=== PATIENT | male | born 1990 | race African-American/Black ===

== ENCOUNTER 2018-03-16 18:49 | Emergency (ER) | payer OTHER ==
--- OUTSIDE RECORDS SUMMARY | 2018-03-16 18:51 | XMS REPORT ---
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
--- OUTSIDE RECORDS SUMMARY | 2018-03-16 18:51 | XMS REPORT ---
:1990 [facility] Team Providers Name Role Phone Bee Swanson Provider Role Unavailable Allergies, Adverse Reactions, Alerts Substance Reaction Event Type N.K.D.A. Info Not Available Non Drug Allergy Problems Problem Type Condition Code Onset Dates Condition Status Assessment Hyperlipidemia, unspecified E78.5 Active hyperlipidemia type Assessment Type 2 diabetes mellitus with E11.65 Active hyperglycemia Assessment [facility] current use of insulin Z79.4 Active Assessment History of pancreatitis Z87.19 Active Problem History of pancreatitis Z87.19 Active Problem [facility] current use of insulin Z79.4 Active Problem Anxiety F41.9 Active Problem Hypertension, unspecified type I10 Active Assessment Hypertension, unspecified type I10 Active Problem Type 2 diabetes mellitus with E11.65 Active hyperglycemia Problem Hyperlipidemia, unspecified E78.5 Active hyperlipidemia type Medications Medication Code Code Instructions Start End Status Dosage System Date Date Coreg [facility] 41918342166 25 mg Orally Active 1 tablet Twice a day Ketoprofen ND 73675263184 75 MG Orally Active 1 capsule Two times a day Aspir-Low ND 83058075830 81 MG Orally Active 1 tablet Once a day Lofibra [facility] 55001962810 54 MG Orally Active 1 tablet Once a day with food Metformin HCl ND 13533167291 1000 MG Orally Active 1 tablet Twice a day with meals Niacin ER ND 08599706018 500 MG Orally Active 1 capsule Once a day with food Mobic [facility] 29448953760 7.5 MG Orally Active 1 tablet Once a day Lantus SoloStar ND 66779537721 100 UNIT/ML Active 60 units Subcutaneous Once daily Atorvastatin ND 65895261784 40 MG Orally Active 1 tablet Calcium Once a day in evening Zyprexa [facility] 20432934158 10 MG Orally Active 1 tablet Once a day Indomethacin ND 76097141648 50 MG Orally Active 1 capsule Twice a day as with food needed or milk Losartan ND 19312592402 50 MG Orally Active 1 tablet Potassium Once a day Creon [facility] 35876350946 6000 UNIT Active not Orally defined Results No Known Results Summary Purpose eClinicalWorks Submission
--- OUTSIDE RECORDS SUMMARY | 2018-03-16 18:51 | XMS REPORT ---
:1990 [facility] Team Providers Name Role Phone Bee Swanson Provider Role Unavailable Allergies, Adverse Reactions, Alerts Substance Reaction Event Type N.K.D.A. Info Not Available Non Drug Allergy Problems Problem Type Condition Code Onset Dates Condition Status Assessment Hyperlipidemia, unspecified E78.5 Active hyperlipidemia type Assessment Type 2 diabetes mellitus with E11.65 Active hyperglycemia Assessment [facility] current use of insulin Z79.4 Active Assessment History of pancreatitis Z87.19 Active Problem History of pancreatitis Z87.19 Active Problem [facility] current use of insulin Z79.4 Active Problem Anxiety F41.9 Active Problem Hypertension, unspecified type I10 Active Assessment Hypertension, unspecified type I10 Active Problem Type 2 diabetes mellitus with E11.65 Active hyperglycemia Problem Hyperlipidemia, unspecified E78.5 Active hyperlipidemia type Medications Medication Code Code Instructions Start End Status Dosage System Date Date Zyprexa [facility] 35001607623 10 MG Orally Active 1 tablet Once a day Ketoprofen [facility] 36370068040 75 MG Orally Active 1 capsule Two times a day Niacin ER ND 34999195190 500 MG Orally Active 1 capsule Once a day with food Atorvastatin ND 36645478104 40 MG Orally Active 1 tablet Calcium Once a day in evening Coreg [facility] 44597043482 25 mg Orally Active 1 tablet Twice a day Mobic [facility] 30974156611 7.5 MG Orally Active 1 tablet Once a day Lofibra [facility] 08052335242 54 MG Orally Active 1 tablet Once a day with food Indomethacin ND 55944601662 50 MG Orally Active 1 capsule Twice a day as with food needed or milk Creon [facility] 33924561098 6000 UNIT Active not Orally defined Metformin HCl ND 29339028064 1000 MG Orally Active 1 tablet Twice a day with meals Lantus SoloStar [facility] 25031201722 100 UNIT/ML Active 60 units Subcutaneous Once daily Losartan ND 98822670254 50 MG Orally Active 1 tablet Potassium Once a day Aspir-Low [facility] 76335866255 81 MG Orally Active 1 tablet Once a day Results No Known Results Summary Purpose eClinicalWorks Submission
[2018-03-16] MEDS ORDERED: LIDOCAINE VISCOUS 2% SOLN 15 ML UDC ONE (19:45)
--- NOTE | 2018-03-16 21:04 | ER ---
Nurse's Notes [facility] Name: Kartik Swartz Jr Age: 27 yrs Sex: Male : 1990 Arrival Date: 03/16/2018 Time: 18:50 Bed 15 Private MD: Diagnosis: Dental caries, unspecified-with pain of Right Back Molar;Removal of Insect from left ear canal Presentation: 03/16 19:03 Presenting complaint: Patient states: "Something flew in my ear. The last time I heard aj1 the wings was at 6:40. I dont know what to do to get it out". Transition of care: patient was not received from another setting of care. Onset of symptoms was March 16, 2018. Risk Assessment: Do you want to hurt yourself or someone else? Patient reports no desire to harm self or others. Initial Sepsis Screen: Does the patient meet any 2 criteria? No. Patient's initial sepsis screen is negative. Does the patient have a suspected source of infection? No. Patient's initial sepsis screen is negative. Care prior to arrival: None. 19:03 Method Of Arrival: Ambulatory aj1 19:03 Acuity: JENNIFER 4 aj1 Triage Assessment: 19:06 General: Appears in no apparent distress. uncomfortable, Behavior is calm, cooperative, aj1 appropriate for age. Pain: Denies pain. Neuro: Level of Consciousness is awake, alert, obeys commands. Cardiovascular: Patient's skin is warm and dry. Respiratory: Airway is patent Respiratory effort is even, unlabored, Respiratory pattern is regular, symmetrical. Historical: - Allergies: 19:06 ROBITUSSIN; aj1 19:06 Tylenol-Codeine #3; aj1 - Home Meds: 19:06 Creon Oral [Active]; Insulin: Lantus Sub-Q [Active]; losartan Oral [Active]; Metformin aj1 Oral [Active]; Zyprexa 10 mg Oral tab 1 tab once daily [Active]; - PMHx: 19:06 Diabetes - NIDDM; Hypertension; Pancreatitis; Schizophrenia; aj1 - Immunization history:: Flu vaccine is not up to date. - Social history:: Smoking status: Patient uses tobacco products, cigars. - Ebola Screening: : Patient denies travel to an Ebola-affected area in the 21 days before illness onset. Screenin:10 Abuse screen: Denies threats or abuse. Denies injuries from another. Nutritional cc3 screening: No deficits noted. Tuberculosis screening: No symptoms or risk factors identified. Fall Risk Ambulatory Aid- None/Bed Rest/Nurse Assist (0 pts). Gait- Normal/Bed Rest/Wheelchair (0 pts) Mental Status- Oriented to own ability (0 pts). Assessment: 19:10 General: see triage assessment. cc3 20:30 Reassessment: Patient appears in no apparent distress at this time. Patient and/or cc3 family updated on plan of care and expected duration. Pain level reassessed. Patient is alert, oriented x 3, equal unlabored respirations, skin warm/dry/pink. 21:20 Reassessment: Patient appears in no apparent distress at this time. Patient and/or cc3 family updated on plan of care and expected duration. Pain level reassessed. Patient is alert, oriented x 3, equal unlabored respirations, skin warm/dry/pink. STEPHANIE Braga discharged the patient home with prescription given. No IV cannula in situ. Patient left ER vitally stable and ambulatory. Vital Signs: 19:06 BP 148 / 89; Pulse 108; Resp 20; Temp 97.3; Pulse Ox 97% on R/A; Weight 175.99 kg (R); aj1 Height 5 ft. 9 in. (175.26 cm) (R); Pain 0/10; 20:50 BP 139 / 78; Pulse 98; Resp 19 S; Pulse Ox 97% on R/A; cc3 19:06 Body Mass Index 57.30 (175.99 kg, 175.26 cm) aj1 ED Course: 18:50 Patient arrived in ED. ds1 19:05 Triage completed. aj1 19:06 Arm band placed on Patient placed in an exam room. aj1 19:07 Althea Munguia is Primary Nurse. cc3 19:10 Melquiades Braga PA is PHCP. cp 19:10 Surya Epperson MD is Attending Physician. cp 19:10 Patient has correct armband on for positive identification. Bed in low position. Call cc3 light in reach. Side rails up X 1. Pulse ox on. NIBP on. 21:01 Ladarius Win DDS is Referral Physician. cp 21:20 No provider procedures requiring assistance completed. Patient did not have IV access cc3 during this emergency room visit. Administered Medications: 19:45 Drug: Lidocaine Gel 2 % 1 application {Note: given by STEPHANIE Braga.} Route: Mucous cc3 Membrane; 20:30 Follow up: Response: No adverse reaction cc3 Outcome: 21:03 Discharge ordered by MD. vega 21:20 Discharged to home ambulatory. cc3 21:20 Condition: stable 21:20 Discharge instructions given to patient, Instructed on discharge instructions, follow up and referral plans. medication usage, Demonstrated understanding of instructions, follow-up care, medications, Prescriptions given X 2. 21:22 Patient left the ED. cc3 Signatures: Kim Walker RN RN aj1 Rosemarie Marquez dsMelquiades Slaughter PA PA cp Cordel, Charlene cc3
--- NOTE | 2018-03-16 21:04 | EDPHYS ---
Physician Documentation [facility] Name: Kartik Swartz Jr Age: 27 yrs Sex: Male : 1990 Arrival Date: 03/16/2018 Time: 18:50 Bed 15 Private MD: ED Physician Surya Epperson HPI: 03/16 19:30 This 27 yrs old Black Male presents to ER via Ambulatory with complaints of Bug In Ear. cp 19:30 The patient presents with a foreign body sensation, presumably from an insect. cp 19:30 The complaints affect the left ear. Onset: The symptoms/episode began/occurred today. cp The patient presents with broken tooth/teeth, pain. The problem is located in the upper right third molar (#1). Onset: The symptoms/episode began/occurred gradually. Duration: The symptoms are continuous, and are steadily getting worse. Modifying factors: the symptoms are aggravated by chewing. Associated signs and symptoms: Pertinent negatives: fever, sinus trouble, facial swelling. Historical: - Allergies: 19:06 ROBITUSSIN; aj1 19:06 Tylenol-Codeine #3; aj1 - Home Meds: 19:06 Creon Oral [Active]; Insulin: Lantus Sub-Q [Active]; losartan Oral [Active]; Metformin aj1 Oral [Active]; Zyprexa 10 mg Oral tab 1 tab once daily [Active]; - PMHx: 19:06 Diabetes - NIDDM; Hypertension; Pancreatitis; Schizophrenia; aj1 - Immunization history:: Flu vaccine is not up to date. - Social history:: Smoking status: Patient uses tobacco products, cigars. - Ebola Screening: : Patient denies travel to an Ebola-affected area in the 21 days before illness onset. ROS: 19:40 Constitutional: Negative for body aches, chills, fever, poor PO intake. cp 19:40 Eyes: Negative for injury, pain, redness, and discharge. cp 19:40 ENT: Positive for dental pain, foreign body sensation, Negative for drainage from ear(s), sore throat, difficulty swallowing, difficulty handling secretions. 19:40 Respiratory: Negative for cough, shortness of breath, wheezing. 19:40 Abdomen/GI: Negative for abdominal pain, nausea, vomiting, and diarrhea. 19:40 Skin: Negative for cellulitis, rash. 19:40 Neuro: Negative for altered mental status, headache, weakness. 19:40 All other systems are negative. Exam: 19:45 Constitutional: The patient appears in no acute distress, alert, awake, non-toxic, well cp developed, well nourished. 19:45 Head/Face: Normocephalic, atraumatic. cp 19:45 Eyes: Periorbital structures: appear normal, Conjunctiva: normal, no exudate, no injection, Sclera: no appreciated abnormality, Lids and lashes: appear normal, bilaterally. 19:45 ENT: External ear(s): are unremarkable, Ear canal(s): foreign body, an insect, in the left external ear canal, Examination of the other ear shows no obvious abnormality, Nose: is normal, Mouth: Lips: moist, Oral mucosa: moist, abscess, is not appreciated, Posterior pharynx: Airway: no evidence of obstruction, patent, Tonsils: are normal in appearance, Dental exam: abscess, is not appreciated, dental caries, that is moderate, diffusely, fractured teeth are noted, specifically the upper right third molar (#1), gum swelling, that is mild, specifically in the upper right third molar (#1), pain, that is mild, specifically in the upper right third molar (#1), Voice: is normal. 19:45 Neck: ROM/movement: is normal, is supple, without pain, no range of motions limitations, no nuchal rigidity, Lymph nodes: no appreciated lymphadenopathy. 19:45 Chest/axilla: Inspection: normal. 19:45 Cardiovascular: Rate: tachycardic, Rhythm: regular. 19:45 Respiratory: the patient does not display signs of respiratory distress, Respirations: normal, no use of accessory muscles, no retractions, no splinting, no tachypnea, labored breathing, is not present. 19:45 Abdomen/GI: Exam negative for discomfort, distension, guarding, Inspection: abdomen appears normal. 19:45 Skin: cellulitis, is not appreciated, no rash present. Vital Signs: 19:06 BP 148 / 89; Pulse 108; Resp 20; Temp 97.3; Pulse Ox 97% on R/A; Weight 175.99 kg (R); aj1 Height 5 ft. 9 in. (175.26 cm) (R); Pain 0/10; 20:50 BP 139 / 78; Pulse 98; Resp 19 S; Pulse Ox 97% on R/A; cc3 19:06 Body Mass Index 57.30 (175.99 kg, 175.26 cm) aj1 Procedures: 20:58 Foreign Body Removal: an insect, from the left ear canal, by using alligator clamps, cp The patient tolerated the removal well. MDM: 19:10 Patient medically screened. cp 20:00 Differential diagnosis: otitis media, otitis externa, ruptured TM, foreign body, acute cp otalgia, cerumen impaction, dental caries, dental abscess. 21:02 Data reviewed: vital signs, nurses notes, and as a result, I will discharge patient. cp 21:02 Counseling: I had a detailed discussion with the patient and/or guardian regarding: the cp historical points, exam findings, and any diagnostic results supporting the discharge/admit diagnosis, lab results, the need for outpatient follow up, a dentist, to return to the emergency department if symptoms worsen or persist or if there are any questions or concerns that arise at home. 21:02 Response to treatment: the patient's symptoms have markedly improved after treatment, cp and as a result, I will discharge patient. Administered Medications: 19:45 Drug: Lidocaine Gel 2 % 1 application {Note: given by STEPHANIE Braga.} Route: Mucous cc3 Membrane; 20:30 Follow up: Response: No adverse reaction cc3 Disposition: 03/17 01:00 Co-signature as Attending Physician, Surya Epperson MD. rn Disposition: 03/16/18 21:03 Discharged to Home. Impression: Dental caries, unspecified - with pain of Right Back Molar, Removal of Insect from left ear canal. - Condition is Stable. - Discharge Instructions: Dental Caries, Adult, Dental Pain, Ear Foreign Body. - Prescriptions for Peridex 0.12 % Mucous Membrane mouthwash - place 15 milliliter by MUCOUS MEMBRANE route 2 times per day after brushing teeth, swish in mouth for 30 seconds then spit out; 1 bottle. Amoxicillin 875 mg Oral Tablet - take 1 tablet by ORAL route every 12 hours for 10 days; 20 tablet. - Medication Reconciliation Form, Thank You Letter, Antibiotic Education, Prescription Opioid Use form. - Follow up: Ladarius Win DDS; When: 2 - 3 days; Reason: dental pain. - Problem is new. - Symptoms have improved. Signatures: Kim Walker, RN RN aj1 Surya Epperson MD MD rn Page, Corey, PA PA cp Althea Munguia cc3 Corrections: (The following items were deleted from the chart) 03/16 21:22 21:03 03/16/2018 21:03 Discharged to Home. Impression: Dental caries, unspecified - cc3 with pain of Right Back Molar; Removal of Insect from left ear canal. Condition is Stable. Forms are Medication Reconciliation Form, Thank You Letter, Antibiotic Education, Prescription Opioid Use. Follow up: Ladarius Win; When: 2 - 3 days; Reason: dental pain. Problem is new. Symptoms have improved. cp
[2018-03-16 21:57] VITALS: BP 148/89; TEMP 97.3; O2SAT 97
== END 2018-03-16 21:22 | disposition home or self-care (01) ==
LOC: ER 18:49
PROC: 09C4XZZ Extirpation of Matter from Left External Auditory Canal, External Approach (ICD-10-PCS; principal; 2018-03-16)
DX: T16.2XXA Foreign body in left ear, initial encounter (principal); K02.9 Dental caries, unspecified; I10 Essential (primary) hypertension; E11.9 Type 2 diabetes mellitus without complications; Z88.8 Allergy status to other drugs, medicaments and biological substances; Z79.4 Long term (current) use of insulin; Z72.0 Tobacco use; Z88.5 Allergy status to narcotic agent
CPT/HCPCS: 99283

== ENCOUNTER 2018-04-27 16:09 | Emergency (ER) | payer SELFPAY ==
--- OUTSIDE RECORDS SUMMARY | 2018-04-27 16:12 | XMS REPORT ---
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
--- OUTSIDE RECORDS SUMMARY | 2018-04-27 16:12 | XMS REPORT ---
:1990 [facility] [address] [place] [address] [address] [place] [address] Care Team Providers Name Role Phone Unavailable Unavailable Unavailable Problems This patient has no known problems. Allergies, Adverse Reactions, Alerts This patient has no known allergies or adverse reactions. Medications This patient has no known medications.
--- OUTSIDE RECORDS SUMMARY | 2018-04-27 16:12 | XMS REPORT ---
:1990 [facility] Team Providers Name Role Phone Bee Swanson Provider Role Unavailable Allergies, Adverse Reactions, Alerts Substance Reaction Event Type N.K.D.A. 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 86995569977 25 mg Orally Active 1 tablet Twice a day Ketoprofen ND 66033025238 75 MG Orally Active 1 capsule Two times a day Aspir-Low ND 18270355186 81 MG Orally Active 1 tablet Once a day Lofibra [facility] 00167355596 54 MG Orally Active 1 tablet Once a day with food Metformin HCl ND 74849641020 1000 MG Orally Active 1 tablet Twice a day with meals Niacin ER ND 24406114975 500 MG Orally Active 1 capsule Once a day with food Mobic [facility] 35154831939 7.5 MG Orally Active 1 tablet Once a day Lantus SoloStar ND 12620074319 100 UNIT/ML Active 60 units Subcutaneous Once daily Atorvastatin ND 91198844701 40 MG Orally Active 1 tablet Calcium Once a day in evening Zyprexa [facility] 49265704954 10 MG Orally Active 1 tablet Once a day Indomethacin ND 60857820404 50 MG Orally Active 1 capsule Twice a day as with food needed or milk Losartan ND 30131681700 50 MG Orally Active 1 tablet Potassium Once a day Creon [facility] 27825025964 6000 UNIT Active not Orally defined Results No Known Results Summary Purpose eClinicalWorks Submission
--- OUTSIDE RECORDS SUMMARY | 2018-04-27 16:12 | XMS REPORT ---
:1990 [facility] Team Providers Name Role Phone Bee Swanson Provider Role Unavailable Allergies, Adverse Reactions, Alerts Substance Reaction Event Type N.K.D.A. Info Not Available Non Drug Allergy Problems Problem Type Condition Code Onset Dates Condition Status Assessment Hyperlipidemia, unspecified E78.5 Active hyperlipidemia type Assessment Type 2 diabetes mellitus with E11.65 Active hyperglycemia Assessment [facility] current use of insulin Z79.4 Active Assessment History of pancreatitis Z87.19 Active Problem History of pancreatitis Z87.19 Active Problem [facility] current use of insulin Z79.4 Active Problem Anxiety F41.9 Active Problem Hypertension, unspecified type I10 Active Assessment Hypertension, unspecified type I10 Active Problem Type 2 diabetes mellitus with E11.65 Active hyperglycemia Problem Hyperlipidemia, unspecified E78.5 Active hyperlipidemia type Medications Medication Code Code Instructions Start End Status Dosage System Date Date Zyprexa [facility] 22882007453 10 MG Orally Active 1 tablet Once a day Ketoprofen [facility] 18702579374 75 MG Orally Active 1 capsule Two times a day Niacin ER ND 74583916174 500 MG Orally Active 1 capsule Once a day with food Atorvastatin ND 37104055655 40 MG Orally Active 1 tablet Calcium Once a day in evening Coreg [facility] 30849432010 25 mg Orally Active 1 tablet Twice a day Mobic [facility] 86434829779 7.5 MG Orally Active 1 tablet Once a day Lofibra [facility] 19113996369 54 MG Orally Active 1 tablet Once a day with food Indomethacin ND 55093751953 50 MG Orally Active 1 capsule Twice a day as with food needed or milk Creon [facility] 55656521082 6000 UNIT Active not Orally defined Metformin HCl ND 87086456022 1000 MG Orally Active 1 tablet Twice a day with meals Lantus SoloStar [facility] 92611808479 100 UNIT/ML Active 60 units Subcutaneous Once daily Losartan ND 98782872290 50 MG Orally Active 1 tablet Potassium Once a day Aspir-Low [facility] 00625347087 81 MG Orally Active 1 tablet Once a day Results No Known Results Summary Purpose eClinicalWorks Submission
--- NOTE | 2018-04-27 17:10 | ER ---
Nurse's Notes [facility] Name: Kartik Swartz Jr Age: 27 yrs Sex: Male : 1990 Arrival Date: 04/27/2018 Time: 16:14 Bed 24 Private MD: Bee Swanson Diagnosis: Presentation: 04/27 16:36 Presenting complaint: Patient states: I think someone put formaldehyde on my cigarette ch or something, I feel drugged and dizzy. For at least today, maybe even yesterday. I dont know. Transition of care: patient was not received from another setting of care. Onset of symptoms was April 27, 2018. Risk Assessment: Do you want to hurt yourself or someone else? Patient reports no desire to harm self or others. Initial Sepsis Screen: Does the patient meet any 2 criteria? No. Patient's initial sepsis screen is negative. Does the patient have a suspected source of infection? No. Patient's initial sepsis screen is negative. Care prior to arrival: None. 16:36 Method Of Arrival: Ambulatory 16:36 Acuity: JENNIFER 3 Historical: - Allergies: 16:37 ROBITUSSIN; 16:37 Tylenol-Codeine #3; - Home Meds: 16:37 Insulin: Lantus Sub-Q [Active]; - PMHx: 16:37 Diabetes - NIDDM; Hypertension; Pancreatitis; Schizophrenia; - PSHx: 16:37 None; - Immunization history:: Adult Immunizations up to date. - Social history:: Smoking status: Patient uses tobacco products, unknown amount. - Ebola Screening: : Patient negative for fever greater than or equal to 101.5 degrees Fahrenheit, and additional compatible Ebola Virus Disease symptoms Patient denies exposure to infectious person Patient denies travel to an Ebola-affected area in the 21 days before illness onset No symptoms or risks identified at this time. Vital Signs: 16:37 BP 155 / 109; Pulse 111; Resp 18; Temp 98.4; Pulse Ox 98% on R/A; Weight 95.25 kg; ch Height 5 ft. 9 in. (175.26 cm); Pain 0/10; 16:37 Body Mass Index 31.01 (95.25 kg, 175.26 cm) ED Course: 16:14 Patient arrived in ED. sb2 16:15 Bee Swanson MD is Private Physician. sb2 16:36 Triage completed. 16:37 Arm band placed on left wrist. Patient placed in an exam room, on a stretcher. 16:48 Cj Morin PA is PHCP. [facility] 16:48 Vasile Clay MD is Attending Physician. [facility] 16:50 Jessica Paulino LVN is Primary Nurse. ed1 Administered Medications: No medications were administered Point of Care Testing: Blood Glucose: 16:40 Blood Glucose: 143 mg/dL; Ranges: Outcome: 17:09 Eloped from patient exam room, before seeing physician Time discovered patient gone: ed1 April 27, 2018 at 17:09 17:09 unknown 17:09 Discharge instructions given to None given. Pt eloped from exam room before being seen by nurse or provider 17:10 Patient left the ED. ed1 17:20 Patient left the ED. hb Signatures: Ileana George, RN RN Cj Morin PA [facility] Jessica Paulino LVN SOFTWARE PERFORMANCE ENGINEER ed1 Janis Mason, RN RN Yenifer Aguilar sb2
--- NOTE | 2018-04-27 17:10 | EDPHYS ---
Physician Documentation [facility] Name: Kartik Swartz Jr Age: 27 yrs Sex: Male : 1990 Arrival Date: 04/27/2018 Time: 16:14 Bed 24 Private MD: Bee Swanson ED Physician Vasile Clay Historical: - Allergies: 04/27 16:37 ROBITUSSIN; 16:37 Tylenol-Codeine #3; - Home Meds: 16:37 Insulin: Lantus Sub-Q [Active]; ch - PMHx: 16:37 Diabetes - NIDDM; Hypertension; Pancreatitis; Schizophrenia; ch - PSHx: 16:37 None; - Immunization history:: Adult Immunizations up to date. - Social history:: Smoking status: Patient uses tobacco products, unknown amount. - Ebola Screening: : Patient negative for fever greater than or equal to 101.5 degrees Fahrenheit, and additional compatible Ebola Virus Disease symptoms Patient denies exposure to infectious person Patient denies travel to an Ebola-affected area in the 21 days before illness onset No symptoms or risks identified at this time. Vital Signs: 16:37 BP 155 / 109; Pulse 111; Resp 18; Temp 98.4; Pulse Ox 98% on R/A; Weight 95.25 kg; ch Height 5 ft. 9 in. (175.26 cm); Pain 0/10; 16:37 Body Mass Index 31.01 (95.25 kg, 175.26 cm) ch MDM: 04/27 16:42 Order name: Glucose, Ancillary Testing; Complete Time: 16:54 EDMS Administered Medications: No medications were administered Point of Care Testing: Blood Glucose: 16:40 Blood Glucose: 143 mg/dL; Ranges: Critical Glucose Levels:Adult <50 mg/dl or >400 mg/dl <40 mg/dl or >180 mg/dl Disposition: 04/27/18 17:10 Patient left the facility before being seen by provider. - Patient left due to unknown. Signatures: Dispatcher [employer] EDMS Ileana George RN RN Cj Longoria PA PA jmm Riggs, Erika, SHOPPING CENTRE MANAGER SHOPPING CENTRE MANAGER ed1 Janis Mason RN RN Corrections: (The following items were deleted from the chart) 17:05 16:55 Patient medically screened. sherry powell 17:20 17:10 04/27/2018 17:10 Patient left the facility before being seen by provider. Reason hb stated they are leaving due to unknown. ed1
[2018-04-27 17:15] VITALS: BP 155/109; TEMP 98.4; O2SAT 98
== END 2018-04-27 17:20 | disposition left against medical advice (07) ==
LOC: ER 16:09
DX: Z53.21 Procedure and treatment not carried out due to patient leaving prior to being seen by health care provider (principal)
CPT/HCPCS: 82962; 99282

== ENCOUNTER 2018-05-25 20:54 | Emergency (ER) | payer OTHER ==
--- OUTSIDE RECORDS SUMMARY | 2018-05-25 20:56 | XMS REPORT ---
:1990 [facility] Address [address] [place] [address] Care Team Providers Name Role Phone Unavailable Unavailable Unavailable Problems This patient has no known problems. Allergies, Adverse Reactions, Alerts This patient has no known allergies or adverse reactions. Medications This patient has no known medications.
--- OUTSIDE RECORDS SUMMARY | 2018-05-25 20:56 | XMS REPORT ---
:1990 [facility] Team Providers Name Role Phone Bee Swanson Provider Role Unavailable Allergies, Adverse Reactions, Alerts Substance Reaction Event Type N.K.D.A. Info Not Available Non Drug Allergy Problems Problem Type Condition Code Onset Dates Condition Status Assessment Hyperlipidemia, unspecified E78.5 Active hyperlipidemia type Assessment Type 2 diabetes mellitus with E11.65 Active hyperglycemia Assessment half-way current use of insulin Z79.4 Active Assessment History of pancreatitis Z87.19 Active Problem History of pancreatitis Z87.19 Active Problem half-way current use of insulin Z79.4 Active Problem Anxiety F41.9 Active Problem Hypertension, unspecified type I10 Active Assessment Hypertension, unspecified type I10 Active Problem Type 2 diabetes mellitus with E11.65 Active hyperglycemia Problem Hyperlipidemia, unspecified E78.5 Active hyperlipidemia type Medications Medication Code Code Instructions Start End Status Dosage System Date Date Zyprexa [facility] 36120550056 10 MG Orally Active 1 tablet Once a day Ketoprofen [facility] 68623630749 75 MG Orally Active 1 capsule Two times a day Niacin ER ND 61236302791 500 MG Orally Active 1 capsule Once a day with food Atorvastatin ND 29125363717 40 MG Orally Active 1 tablet Calcium Once a day in evening Coreg [facility] 37312604079 25 mg Orally Active 1 tablet Twice a day Mobic [facility] 77778820287 7.5 MG Orally Active 1 tablet Once a day Lofibra [facility] 44115942687 54 MG Orally Active 1 tablet Once a day with food Indomethacin ND 43091791247 50 MG Orally Active 1 capsule Twice a day as with food needed or milk Creon [facility] 61682813567 6000 UNIT Active not Orally defined Metformin HCl ND 47814020998 1000 MG Orally Active 1 tablet Twice a day with meals Lantus SoloStar [facility] 28706003750 100 UNIT/ML Active 60 units Subcutaneous Once daily Losartan ND 02521915575 50 MG Orally Active 1 tablet Potassium Once a day Aspir-Low [facility] 95921711734 81 MG Orally Active 1 tablet Once a day Results No Known Results Summary Purpose eClinicalWorks Submission
--- OUTSIDE RECORDS SUMMARY | 2018-05-25 20:57 | XMS REPORT ---
:1990 [facility] Team Providers Name Role [...] End Status Dosage System Date Date Coreg [facility] 07825084458 25 mg Orally Active 1 tablet Twice a day Ketoprofen ND 92497150184 75 MG Orally Active 1 capsule Two times a day Aspir-Low ND 11546248446 81 MG Orally Active 1 tablet Once a day Lofibra [facility] 79625125221 54 MG Orally Active 1 tablet Once a day with food Metformin HCl ND 60801384891 1000 MG Orally Active 1 tablet Twice a day with meals Niacin ER ND 27553431939 500 MG Orally Active 1 capsule Once a day with food Mobic [facility] 66291119151 7.5 MG Orally Active 1 tablet Once a day Lantus SoloStar ND 59325127511 100 UNIT/ML Active 60 units Subcutaneous Once daily Atorvastatin ND 37076765394 40 MG Orally Active 1 tablet Calcium Once a day in evening Zyprexa [facility] 92301981436 10 MG Orally Active 1 tablet Once a day Indomethacin ND 62981283431 50 MG Orally Active 1 capsule Twice a day as with food needed or milk Losartan ND 09362282240 50 MG Orally Active 1 tablet Potassium Once a day Creon [facility] 66607681172 6000 UNIT Active not Orally defined Results No Known Results Summary Purpose eClinicalWorks Submission
--- OUTSIDE RECORDS SUMMARY | 2018-05-25 20:57 | XMS REPORT ---
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
--- NOTE | 2018-05-25 23:00 | ER ---
Nurse's Notes [facility] Name: Kartik Swartz Jr Age: 27 yrs Sex: Male : 1990 Arrival Date: 05/25/2018 Time: 21:02 Bed 23 Private MD: Diagnosis: Dental caries-pain Presentation: 05/25 21:19 Presenting complaint: Patient states: Left jaw and ear pain for the past month. Patient aj1 states that he was seen here and given antibiotics but he didn't get a chance to follow up with the dentist. Denies fever. Transition of care: patient was not received from another setting of care. Onset of symptoms was 2018. Risk Assessment: Do you want to hurt yourself or someone else? Patient reports no desire to harm self or others. Initial Sepsis Screen: Does the patient meet any 2 criteria? No. Patient's initial sepsis screen is negative. Does the patient have a suspected source of infection? No. Patient's initial sepsis screen is negative. Care prior to arrival: None. 21:19 Method Of Arrival: Ambulatory aj 21:19 Acuity: JENNIFER 4 aj1 Triage Assessment: 21:23 General: Appears in no apparent distress. comfortable, Behavior is calm, cooperative, aj1 appropriate for age. Pain: Complains of pain in left ear and left jaw Pain currently is 7 out of 10 on a pain scale. EENT: Reports jaw pain and ear pain. Neuro: Level of Consciousness is awake, alert, obeys commands. Cardiovascular: Patient's skin is warm and dry. Respiratory: Airway is patent Respiratory effort is even, unlabored, Respiratory pattern is regular, symmetrical. Historical: - Allergies: 21:23 ROBITUSSIN; aj1 21:23 Tylenol-Codeine #3; aj1 - Home Meds: 21:23 Creon Oral [Active]; Insulin: Lantus Sub-Q [Active]; losartan Oral [Active]; Metformin aj1 Oral [Active]; Zyprexa 10 mg Oral tab 1 tab once daily [Active]; - PMHx: 21:23 Diabetes - NIDDM; Hypertension; Pancreatitis; Schizophrenia; aj1 - Immunization history:: Flu vaccine is not up to date. - Social history:: Smoking status: Patient uses tobacco products, smokes one-half pack cigarettes per day. - Ebola Screening: : Patient denies travel to an Ebola-affected area in the 21 days before illness onset. - Family history:: not pertinent. Screenin:04 Abuse screen: Denies threats or abuse. Nutritional screening: No deficits noted. jd3 Tuberculosis screening: No symptoms or risk factors identified. Fall Risk Ambulatory Aid- None/Bed Rest/Nurse Assist (0 pts). Gait- Normal/Bed Rest/Wheelchair (0 pts) Mental Status- Oriented to own ability (0 pts). Total Sneed Fall Scale indicates No Risk (0-24 pts). Assessment: 22:02 General: Appears in no apparent distress. uncomfortable, Behavior is calm, cooperative, jd3 appropriate for age. Pain: Complains of pain in face and left jaw and left ear Quality of pain is described as sharp. Neuro: Level of Consciousness is awake, alert, obeys commands, Oriented to person, place, time, situation. Cardiovascular: Capillary refill < 3 seconds Patient's skin is warm and dry. Respiratory: Airway is patent Respiratory effort is even, unlabored, Respiratory pattern is regular, symmetrical. GI: No signs and/or symptoms were reported involving the gastrointestinal system. : No signs and/or symptoms were reported regarding the genitourinary system. EENT: Ear canal w/ drainage noted from left ear Oral mucosa is moist. Poor dentition noted. Dental caries noted in left jaw. Derm: Skin is intact, Skin is dry, Skin is normal, Skin temperature is warm. Musculoskeletal: Circulation, motion, and sensation intact. Range of motion: intact in all extremities. 23:09 Reassessment: Patient appears in no apparent distress at this time. Patient and/or jd3 family updated on plan of care and expected duration. Pain level reassessed. Patient is alert, oriented x 3, equal unlabored respirations, skin warm/dry/pink. Vital Signs: 21:23 BP 149 / 98; Pulse 91; Resp 18; Temp 97.4(TE); Pulse Ox 96% on R/A; Weight 122.47 kg; aj1 Height 5 ft. 9 in. (175.26 cm); Pain 7/10; 23:09 Pulse 89; Resp 17 S; Pulse Ox 97% on R/A; jd3 21:23 Body Mass Index 39.87 (122.47 kg, 175.26 cm) aj1 ED Course: 21:02 Patient arrived in ED. es 21:22 Triage completed. aj1 21:23 Arm band placed on Patient placed in waiting room, Patient notified of wait time. aj1 21:59 Daniel Mohamud, RN is Primary Nurse. jd3 22:04 Patient has correct armband on for positive identification. Bed in low position. Call jd3 light in reach. Side rails up X 1. 22:06 Melquiades Snow MD is Attending Physician. [facility] 22:59 Ladarius Win DDS is Referral Physician. [facility] 23:10 No provider procedures requiring assistance completed. Patient did not have IV access jd3 during this emergency room visit. Administered Medications: 23:06 Drug: Augmentin 875 mg Route: PO; jd3 23:06 Follow up: Response: Medication administered at discharge. jd3 Outcome: :59 Discharge ordered by . [facility] 23:10 Discharged to home ambulatory. jd3 23:10 Condition: stable 23:10 Discharge instructions given to patient, Instructed on discharge instructions, follow up and referral plans. medication usage, Demonstrated understanding of instructions, follow-up care, medications, Prescriptions given X 2. 23:11 Patient left the ED. jd3 Signatures: Kim Walker, RN RN aj1 Melquiades Snow MD MD cha Salyer, Edna es Davies, Jonathon, RN RN jd3
--- NOTE | 2018-05-25 23:01 | EDPHYS ---
Physician Documentation [facility] Name: Kartik Swartz Jr Age: 27 yrs Sex: Male : 1990 Arrival Date: 05/25/2018 Time: 21:02 Bed 23 Private MD: ED Physician Melquiades Snow HPI: 05/25 22:56 This 27 yrs old Black Male presents to ER via Ambulatory with complaints of Ear Pain. kendrick 22:56 This 27 yrs old Black Male presents to ER via Ambulatory with complaints of Ear Pain kendrick and tooth pain. 22:56 The patient presents with pain. The complaints affect the left cheek and left jaw. kendrick Onset: The symptoms/episode began/occurred 2 day(s) ago. Modifying factors: The symptoms are alleviated by nothing. Associated signs and symptoms: The patient has no apparent associated signs or symptoms. Severity of symptoms: At their worst the symptoms were mild moderate in the emergency department the symptoms are unchanged. The patient has not experienced similar symptoms in the past. Historical: - Allergies: 21:23 ROBITUSSIN; aj1 21:23 Tylenol-Codeine #3; aj1 - Home Meds: 21:23 Creon Oral [Active]; Insulin: Lantus Sub-Q [Active]; losartan Oral [Active]; Metformin aj1 Oral [Active]; Zyprexa 10 mg Oral tab 1 tab once daily [Active]; - PMHx: 21:23 Diabetes - NIDDM; Hypertension; Pancreatitis; Schizophrenia; aj1 - Immunization history:: Flu vaccine is not up to date. - Social history:: Smoking status: Patient uses tobacco products, smokes one-half pack cigarettes per day. - Ebola Screening: : Patient denies travel to an Ebola-affected area in the 21 days before illness onset. - Family history:: not pertinent. ROS: 22:56 Constitutional: Negative for fever, chills, and weight loss, Eyes: Negative for injury, kendrick pain, redness, and discharge, Neck: Negative for injury, pain, and swelling, Cardiovascular: Negative for chest pain, palpitations, and edema, Respiratory: Negative for shortness of breath, cough, wheezing, and pleuritic chest pain, Abdomen/GI: Negative for abdominal pain, nausea, vomiting, diarrhea, and constipation, Back: Negative for injury and pain, : Negative for injury, bleeding, discharge, and swelling, MS/Extremity: Negative for injury and deformity, Skin: Negative for injury, rash, and discoloration, Neuro: Negative for headache, weakness, numbness, tingling, and seizure, Psych: Negative for depression, anxiety, suicide ideation, homicidal ideation, and hallucinations, Allergy/Immunology: Negative for hives, rash, and allergies, Endocrine: Negative for neck swelling, polydipsia, polyuria, polyphagia, and marked weight changes, Hematologic/Lymphatic: Negative for swollen nodes, abnormal bleeding, and unusual bruising. 22:56 ENT: Positive for ear pain, Teeth pain Exam: 22:56 Constitutional: This is a well developed, well nourished patient who is awake, alert, kendrick and in no acute distress. Head/Face: Normocephalic, atraumatic. Eyes: Pupils equal round and reactive to light, extra-ocular motions intact. Lids and lashes normal. Conjunctiva and sclera are non-icteric and not injected. Cornea within normal limits. Periorbital areas with no swelling, redness, or edema. Neck: Trachea midline, no thyromegaly or masses palpated, and no cervical lymphadenopathy. Supple, full range of motion without nuchal rigidity, or vertebral point tenderness. No Meningismus. Chest/axilla: Normal chest wall appearance and motion. Nontender with no deformity. No lesions are appreciated. Cardiovascular: Regular rate and rhythm with a normal S1 and S2. No gallops, murmurs, or rubs. Normal PMI, no JVD. No pulse deficits. Respiratory: Lungs have equal breath sounds bilaterally, clear to auscultation and percussion. No rales, rhonchi or wheezes noted. No increased work of breathing, no retractions or nasal flaring. Abdomen/GI: Soft, non-tender, with normal bowel sounds. No distension or tympany. No guarding or rebound. No evidence of tenderness throughout. Back: No spinal tenderness. No costovertebral tenderness. Full range of motion. Male : Normal genitalia with no discharge or lesions. Skin: Warm, dry with normal turgor. Normal color with no rashes, no lesions, and no evidence of cellulitis. MS/ Extremity: Pulses equal, no cyanosis. Neurovascular intact. Full, normal range of motion. Neuro: Awake and alert, GCS 15, oriented to person, place, time, and situation. Cranial nerves II-XII grossly intact. Motor strength 5/5 in all extremities. Sensory grossly intact. Cerebellar exam normal. Normal gait. Psych: Awake, alert, with orientation to person, place and time. Behavior, mood, and affect are within normal limits. 22:56 ENT: TM's: are normal, no acute changes, Nose: is normal, no acute changes, Mouth: is normal, no acute changes, Dental exam: dental caries, that is mild, fractured teeth are noted, specifically the upper left first molar (#14). Vital Signs: 21:23 BP 149 / 98; Pulse 91; Resp 18; Temp 97.4(TE); Pulse Ox 96% on R/A; Weight 122.47 kg; aj1 Height 5 ft. 9 in. (175.26 cm); Pain 7/10; 23:09 Pulse 89; Resp 17 S; Pulse Ox 97% on R/A; jd3 21:23 Body Mass Index 39.87 (122.47 kg, 175.26 cm) aj1 MDM: 22:06 Patient medically screened. [facility] 22:56 Data reviewed: vital signs, nurses notes. [facility] Administered Medications: 23:06 Drug: Augmentin 875 mg Route: PO; jd3 23:06 Follow up: Response: Medication administered at discharge. jd3 Disposition: 05/25/18 22:59 Discharged to Home. Impression: Dental caries - pain. - Condition is Stable. - Discharge Instructions: Dental Pain, Dental Pain, [id number]. - Prescriptions for Augmentin 875- 125 mg Oral Tablet - take 1 tablet by ORAL route every 12 hours for 10 days; 20 tablet. Tramadol 50 mg Oral Tablet - take 1 tablet by ORAL route every 8 hours as needed; 20 tablet. - Medication Reconciliation Form, Thank You Letter, Antibiotic Education, Prescription Opioid Use form. - Follow up: Private Physician; When: 2 - 3 days; Reason: Recheck today's complaints, Continuance of care, Re-evaluation by your physician. Follow up: Ladarius Win DDS; When: 2 - 3 days; Reason: Recheck today's complaints, Continuance of care, Re-evaluation by your physician. - Problem is new. - Symptoms have improved. Signatures: Kim Walker RN RN aj1 Melquiades Snow MD MD cha Davies, Jonathon, RN RN jd3 Corrections: (The following items were deleted from the chart) 23:11 22:59 05/25/2018 22:59 Discharged to Home. Impression: Dental caries - pain. Condition jd3 is Stable. Forms are Medication Reconciliation Form, Thank You Letter, Antibiotic Education, Prescription Opioid Use. Follow up: Private Physician; When: 2 - 3 days; Reason: Recheck today's complaints, Continuance of care, Re-evaluation by your physician. Follow up: Ladarius Win; When: 2 - 3 days; Reason: Recheck today's complaints, Continuance of care, Re-evaluation by your physician. Problem is new. Symptoms have improved. kendrick
[2018-05-25] MEDS ORDERED: AMOX/K CLAV 875 MG TAB ONE (23:11)
[2018-05-26 00:53] VITALS: O2SAT 97
== END 2018-05-25 23:11 | disposition home or self-care (01) ==
LOC: ER 20:54
DX: K02.9 Dental caries, unspecified (principal); E11.9 Type 2 diabetes mellitus without complications; I10 Essential (primary) hypertension; F20.9 Schizophrenia, unspecified; F17.210 Nicotine dependence, cigarettes, uncomplicated; Z88.5 Allergy status to narcotic agent; Z88.8 Allergy status to other drugs, medicaments and biological substances; Z79.84 Long term (current) use of oral hypoglycemic drugs
CPT/HCPCS: 99283

== ENCOUNTER 2018-05-30 10:53 | Emergency (ER) | payer SELFPAY ==
[2011-11-25 06:50] VITALS: BP 112/52
--- OUTSIDE RECORDS SUMMARY | 2018-05-30 10:59 | XMS REPORT ---
:1990 [facility] Address [address] [place] [address] Dr. Duran [address] [place] [id number] Care Team Providers Name Role Phone Unavailable Unavailable Unavailable Problems This patient has no known problems. Allergies, Adverse Reactions, Alerts This patient has no known allergies or adverse reactions. Medications This patient has no known medications.
--- OUTSIDE RECORDS SUMMARY | 2018-05-30 10:59 | XMS REPORT ---
:1990 [facility] Care Team Providers Name Role Phone Bee Swanson Provider Role Unavailable Allergies, Adverse Reactions, Alerts Substance Reaction Event Type N.K.D.A. Info Not Available Non Drug Allergy Problems Problem Type Condition Code Onset Dates Condition Status Assessment Hyperlipidemia, unspecified E78.5 Active hyperlipidemia type Assessment Type 2 diabetes mellitus with E11.65 Active hyperglycemia Assessment alf current use of insulin Z79.4 Active Assessment History of pancreatitis Z87.19 Active Problem History of pancreatitis Z87.19 Active Problem alf current use of insulin Z79.4 Active Problem Anxiety F41.9 Active Problem Hypertension, unspecified type I10 Active Assessment Hypertension, unspecified type I10 Active Problem Type 2 diabetes mellitus with E11.65 Active hyperglycemia Problem Hyperlipidemia, unspecified E78.5 Active hyperlipidemia type Medications Medication Code Code Instructions Start End Status Dosage System Date Date Zyprexa [facility] 80918193046 10 MG Orally Active 1 tablet Once a day Ketoprofen [facility] 37859011463 75 MG Orally Active 1 capsule Two times a day Niacin ER ND 58630489084 500 MG Orally Active 1 capsule Once a day with food Atorvastatin ND 26193864930 40 MG Orally Active 1 tablet Calcium Once a day in evening Coreg [facility] 91024675236 25 mg Orally Active 1 tablet Twice a day Mobic [facility] 47996355721 7.5 MG Orally Active 1 tablet Once a day Lofibra [facility] 56803308943 54 MG Orally Active 1 tablet Once a day with food Indomethacin ND 68970539290 50 MG Orally Active 1 capsule Twice a day as with food needed or milk Creon [facility] 60195231249 6000 UNIT Active not Orally defined Metformin HCl ND 94263675732 1000 MG Orally Active 1 tablet Twice a day with meals Lantus SoloStar [facility] 11283591611 100 UNIT/ML Active 60 units Subcutaneous Once daily Losartan ND 99674968564 50 MG Orally Active 1 tablet Potassium Once a day Aspir-Low [facility] 19903484465 81 MG Orally Active 1 tablet Once a day Results No Known Results Summary Purpose eClinicalWorks Submission
--- OUTSIDE RECORDS SUMMARY | 2018-05-30 11:00 | XMS REPORT ---
:1990 Author [facility] Care Team Providers Name Role Phone Bee Swanson Provider Role Unavailable Allergies, Adverse Reactions, Alerts Substance Reaction Event Type N.K.D.A. Info Not Available Non Drug Allergy Problems Problem Type Condition Code Onset Dates Condition Status Assessment Hyperlipidemia, unspecified E78.5 Active hyperlipidemia type Assessment Type 2 diabetes mellitus with E11.65 Active hyperglycemia Assessment [facility] current use of insulin Z79.4 Active Assessment History of pancreatitis Z87.19 Active Problem History of pancreatitis Z87.19 Active Problem [facility] current use of insulin Z79.4 Active Problem Anxiety F41.9 Active Problem Hypertension, unspecified type I10 Active Assessment Hypertension, unspecified type I10 Active Problem Type 2 diabetes mellitus with E11.65 Active hyperglycemia Problem Hyperlipidemia, unspecified E78.5 Active hyperlipidemia type Medications Medication Code Code Instructions Start End Status Dosage System Date Date Coreg [facility] 28703397175 25 mg Orally Active 1 tablet Twice a day Ketoprofen ND 04037757002 75 MG Orally Active 1 capsule Two times a day Aspir-Low ND 76599161559 81 MG Orally Active 1 tablet Once a day Lofibra [facility] 26308929534 54 MG Orally Active 1 tablet Once a day with food Metformin HCl ND 06463939999 1000 MG Orally Active 1 tablet Twice a day with meals Niacin ER ND 82083968791 500 MG Orally Active 1 capsule Once a day with food Mobic [facility] 65196359526 7.5 MG Orally Active 1 tablet Once a day Lantus SoloStar ND 58291695809 100 UNIT/ML Active 60 units Subcutaneous Once daily Atorvastatin ND 06683460516 40 MG Orally Active 1 tablet Calcium Once a day in evening Zyprexa [facility] 22256254611 10 MG Orally Active 1 tablet Once a day Indomethacin ND 14713517714 50 MG Orally Active 1 capsule Twice a day as with food needed or milk Losartan ND 42006245399 50 MG Orally Active 1 tablet Potassium Once a day Creon [facility] 24995457493 6000 UNIT Active not Orally defined Results No Known Results Summary Purpose eClinicalWorks Submission
--- OUTSIDE RECORDS SUMMARY | 2018-05-30 11:00 | XMS REPORT ---
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
--- NOTE | 2018-05-30 11:13 | ER ---
Nurse's Notes [facility] Name: Kartik Swartz Jr Age: 28 yrs Sex: Male : 1990 Arrival Date: 05/30/2018 Time: 10:57 Bed Waiting Private MD: Diagnosis: Presentation: 05/30 11:04 Presenting complaint: Patient states: "I fell off a ladder at work 2 days ago. I'm not aj sure how high it was." Patient speaking erratically about needing to be in the ICU because he fell off a ladder and needing more syringes because he can't keep walking to [facility]. Patient denied suicidal ideations. Stated, "Man I'm going to go to [place] where they give me the shots.". ED Course: :57 Patient arrived in ED. as 11:12 Surya Epperson MD is Attending Physician. adarsh Administered Medications: No medications were administered Outcome: 11:11 Eloped from waiting room, before seeing physician adarsh 11:12 Patient left the ED. aj Signatures: Jannet Geller, RN RN Danna Hoffman as
== END 2018-05-30 11:12 | disposition left against medical advice (07) ==
LOC: ER 10:53
DX: Z53.21 Procedure and treatment not carried out due to patient leaving prior to being seen by health care provider (principal)
CPT/HCPCS: 99281

== ENCOUNTER 2018-05-30 23:52 | Emergency (ER) | payer OTHER ==
--- OUTSIDE RECORDS SUMMARY | 2018-05-30 23:55 | XMS REPORT ---
:1990 [facility] Team Providers Name Role Phone Bee Swanson Provider Role Unavailable Allergies, Adverse Reactions, Alerts Substance Reaction Event Type N.K.D.A. Info Not Available Non Drug Allergy Problems Problem Type Condition Code Onset Dates Condition Status Assessment Hyperlipidemia, unspecified E78.5 Active hyperlipidemia type Assessment Type 2 diabetes mellitus with E11.65 Active hyperglycemia Assessment [facility] current use of insulin Z79.4 Active Assessment History of pancreatitis Z87.19 Active Problem History of pancreatitis Z87.19 Active Problem [facility] current use of insulin Z79.4 Active Problem Anxiety F41.9 Active Problem Hypertension, unspecified type I10 Active Assessment Hypertension, unspecified type I10 Active Problem Type 2 diabetes mellitus with E11.65 Active hyperglycemia Problem Hyperlipidemia, unspecified E78.5 Active hyperlipidemia type Medications Medication Code Code Instructions Start End Status Dosage System Date Date Coreg [facility] 09858414315 25 mg Orally Active 1 tablet Twice a day Ketoprofen ND 35685359966 75 MG Orally Active 1 capsule Two times a day Aspir-Low ND 04763493547 81 MG Orally Active 1 tablet Once a day Lofibra [facility] 48429334248 54 MG Orally Active 1 tablet Once a day with food Metformin HCl ND 99917235040 1000 MG Orally Active 1 tablet Twice a day with meals Niacin ER ND 42362260552 500 MG Orally Active 1 capsule Once a day with food Mobic [facility] 44679505643 7.5 MG Orally Active 1 tablet Once a day Lantus SoloStar ND 29484510863 100 UNIT/ML Active 60 units Subcutaneous Once daily Atorvastatin ND 53910702202 40 MG Orally Active 1 tablet Calcium Once a day in evening Zyprexa [facility] 16430701146 10 MG Orally Active 1 tablet Once a day Indomethacin ND 58935393177 50 MG Orally Active 1 capsule Twice a day as with food needed or milk Losartan ND 07113592087 50 MG Orally Active 1 tablet Potassium Once a day Creon [facility] 33837770774 6000 UNIT Active not Orally defined Results No Known Results Summary Purpose eClinicalWorks Submission
--- OUTSIDE RECORDS SUMMARY | 2018-05-30 23:55 | XMS REPORT ---
:1990 [facility] Care Team Providers Name Role Phone [...] End Status Dosage System Date Date Zyprexa [facility] 72673199156 10 MG Orally Active 1 tablet Once a day Ketoprofen [facility] 66844819851 75 MG Orally Active 1 capsule Two times a day Niacin ER ND 32457044450 500 MG Orally Active 1 capsule Once a day with food Atorvastatin ND 27625037788 40 MG Orally Active 1 tablet Calcium Once a day in evening Coreg [facility] 76756949162 25 mg Orally Active 1 tablet Twice a day Mobic [facility] 35175915234 7.5 MG Orally Active 1 tablet Once a day Lofibra [facility] 24105132973 54 MG Orally Active 1 tablet Once a day with food Indomethacin ND 77863970078 50 MG Orally Active 1 capsule Twice a day as with food needed or milk Creon [facility] 47726572055 6000 UNIT Active not Orally defined Metformin HCl ND 85871498549 1000 MG Orally Active 1 tablet Twice a day with meals Lantus SoloStar [facility] 59239920229 100 UNIT/ML Active 60 units Subcutaneous Once daily Losartan ND 69028137598 50 MG Orally Active 1 tablet Potassium Once a day Aspir-Low [facility] 49663335401 81 MG Orally Active 1 tablet Once a day Results No Known Results Summary Purpose eClinicalWorks Submission
--- OUTSIDE RECORDS SUMMARY | 2018-05-30 23:55 | XMS REPORT ---
:1990 Author Organization [facility] Address [address] [place] [address] Dr. Duran [address] [place] [id number] Care Team Providers Name Role Phone Unavailable Unavailable Unavailable Problems This patient has no known problems. Allergies, Adverse Reactions, Alerts This patient has no known allergies or adverse reactions. Medications This patient has no known medications.
--- OUTSIDE RECORDS SUMMARY | 2018-05-30 23:56 | XMS REPORT ---
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
[2018-05-31] MEDS ORDERED: NA CHLORIDE 0.9% 1,000 ML ONE (01:28)
[2018-05-31 01:55] LABS: Absolute Lymphocytes (CBC) 3.1 K/uL (0.7-4.9); Absolute Monocytes 1.2 K/uL (0.1-1.3); Absolute Neutrophil 7.5 K/uL (1.8-8.0); Basophils % 0.5 % (0-1.3); Eosinophils % 0.4 % (0-4.4); Hematocrit 50.7 % (39.6-49.0); Lymphocytes % 26.2 % (15.3-44.8); MPV 9.3 fL (7.6-11.3); Monocytes % 9.8 % (3.3-12.3); RBC Red Blood Cell Count 5.75 M/uL (4.33-5.43)
[2018-05-31 01:58] LABS: Protime INR 1.05
[2018-05-31 02:16] LABS: ALT/SGPT 47 U/L (12-78); AST/SGOT 36 U/L (15-37); Albumin 4.9 g/dL (3.4-5.0); Alkaline Phosphatase 52 U/L (45-117); BUN Blood Urea Nitrogen 19 mg/dL (7-18); Bicarbonate 22 mmol/L (21-32); Bilirubin Direct 0.2 mg/dL (0-0.2); Bilirubin Total 0.7 mg/dL (0.2-1.0); Glucose Level 107 mg/dL (74-106); Lipase 129 U/L (73-393); Potassium 3.6 mmol/L (3.5-5.1); Protein, Total 8.7 g/dL (6.4-8.2); Sodium Level 139 mmol/L (136-145)
--- NOTE | 2018-05-31 02:32 | ER ---
Nurse's Notes [facility] Name: Kartik Swartz Jr Age: 28 yrs Sex: Male : 1990 Arrival Date: 05/30/2018 Time: 23:56 Bed 26 Private MD: Diagnosis: Schizophrenia Presentation: 05/31 00:25 Presenting complaint: Patient states: "I'm hurting. it feels like a brain freeze and I jd3 can't think straight.". Transition of care: patient was not received from another setting of care. Onset of symptoms was May 31, 2018. Risk Assessment: Do you want to hurt yourself or someone else? Patient reports no desire to harm self or others. Initial Sepsis Screen: Does the patient meet any 2 criteria? No. Patient's initial sepsis screen is negative. Does the patient have a suspected source of infection? No. Patient's initial sepsis screen is negative. Care prior to arrival: None. 00:25 Method Of Arrival: Ambulatory jd3 00:25 Acuity: JENNIFER 3 jd3 Historical: - Allergies: 00:27 ROBITUSSIN; jd3 00:27 Tylenol-Codeine #3; jd3 - Home Meds: 00:27 Creon Oral [Active]; Insulin: Lantus Sub-Q [Active]; losartan Oral [Active]; Metformin jd3 Oral [Active]; Zyprexa 10 mg Oral tab 1 tab once daily [Active]; - PMHx: 00:27 Diabetes - NIDDM; Hypertension; Pancreatitis; Schizophrenia; jd3 - Immunization history:: Adult Immunizations up to date. - Social history:: Smoking status: Patient uses tobacco products, smokes one-half pack cigarettes per day. - Ebola Screening: : Patient negative for fever greater than or equal to 101.5 degrees Fahrenheit, and additional compatible Ebola Virus Disease symptoms. - Family history:: not pertinent. Screenin:59 Abuse screen: Denies threats or abuse. Denies injuries from another. Nutritional rv screening: No deficits noted. Tuberculosis screening: No symptoms or risk factors identified. Fall Risk None identified. Assessment: 01:52 General: Appears in no apparent distress. comfortable, Behavior is calm, cooperative. rv Pain: Complains of pain in face. Neuro: Level of Consciousness is awake, alert, confused, Oriented to person, place, time. Cardiovascular: Capillary refill < 3 seconds. Respiratory: Airway is patent. GI: No signs and/or symptoms were reported involving the gastrointestinal system. : No signs and/or symptoms were reported regarding the genitourinary system. EENT: No signs and/or symptoms were reported regarding the EENT system. Derm: Skin is intact. Musculoskeletal: No signs and/or symptoms reported regarding the musculoskeletal system. 02:19 Reassessment: Patient appears in no apparent distress at this time. came back from CT rr5 scan, placed on bed comfortably. no complaints made. Vital Signs: 00:27 BP 130 / 98; Pulse 118; Resp 17 S; Temp 98.1(O); Pulse Ox 97% on R/A; Weight 131.54 kg jd3 (R); Height 5 ft. 11 in. (180.34 cm) (R); Pain 10/10; 01:00 BP 121 / 85; Pulse 107; Resp 17 S; Pulse Ox 100% on R/A; rv 01:30 BP 114 / 77; Pulse 95; Resp 18 S; Pulse Ox 99% on R/A; rv 03:03 BP 136 / 95; Pulse 88; Resp 19 S; Pulse Ox 100% on R/A; rv 00:27 Body Mass Index 40.45 (131.54 kg, 180.34 cm) jd3 ED Course: 05/30 23:56 Patient arrived in ED. es 02/06 00:26 Triage completed. jd3 00:27 Pavan Cam RN is Primary Nurse. rr5 00:28 Arm band placed on. jd3 00:53 Melquiades Snow MD is Attending Physician. kendrick 01:20 No provider procedures requiring assistance completed. Inserted saline lock: 18 gauge rv in right antecubital area, using aseptic technique. Blood collected. 01:59 Patient has correct armband on for positive identification. Bed in low position. Call rv light in reach. Side rails up X 1. Pulse ox on. NIBP on. 02:[address] via wheelchair. kw1 02:14 CT Head Brain wo Cont In Process Unspecified. EDMS 03:05 IV discontinued, bleeding controlled, No redness/swelling at site. Pressure dressing rv applied. Administered Medications: 01:29 Drug: NS 0.9% 1000 ml Route: IV; Rate: 1 bolus; Site: right antecubital; rr5 02:36 Follow up: IV Status: Completed infusion rv Outcome: 02:31 Discharge ordered by . kendrick 03:04 Discharged to home ambulatory. umesh 03:04 Condition: stable 03:04 Discharge instructions given to patient, Instructed on discharge instructions, follow up and referral plans. Demonstrated understanding of instructions, follow-up care. 03:05 Patient left the ED. rv Signatures: Dispatcher [employer] Melquiades Brown MD MD cha Salyer, Edna es Davies, Jonathon, RN RN Livier Shaw1 Anand Cline RN RN rv Pavan Cam RN RN rr5
--- NOTE | 2018-05-31 02:32 | EDPHYS ---
Physician Documentation [facility] Name: Kartik Swartz Jr Age: 28 yrs Sex: Male : 1990 Arrival Date: 05/30/2018 Time: 23:56 Bed 26 Private MD: ZEYNEP Physician Melquiades Snow HPI: 05/31 01:07 This 28 yrs old Black Male presents to ER via Ambulatory with complaints of Altered kendrick Mental Status. 01:07 The patient presents with trouble concentrating. Onset: The symptoms/episode kendrick began/occurred 1 day(s) ago. Possible causes: unknown. Associated signs and symptoms: The patient has no apparent associated signs or symptoms. Patient's baseline: Neuro: alert and fully oriented. The patient has experienced similar episodes in the past, a few times. Historical: - Allergies: 00:27 ROBITUSSIN; jd3 00:27 Tylenol-Codeine #3; jd3 - Home Meds: 00:27 Creon Oral [Active]; Insulin: Lantus Sub-Q [Active]; losartan Oral [Active]; Metformin jd3 Oral [Active]; Zyprexa 10 mg Oral tab 1 tab once daily [Active]; - PMHx: 00:27 Diabetes - NIDDM; Hypertension; Pancreatitis; Schizophrenia; jd3 - Immunization history:: Adult Immunizations up to date. - Social history:: Smoking status: Patient uses tobacco products, smokes one-half pack cigarettes per day. - Ebola Screening: : Patient negative for fever greater than or equal to 101.5 degrees Fahrenheit, and additional compatible Ebola Virus Disease symptoms. - Family history:: not pertinent. ROS: 01:07 Constitutional: Negative for fever, chills, and weight loss, Eyes: Negative for injury, kendrick pain, redness, and discharge, ENT: Negative for injury, pain, and discharge, Neck: Negative for injury, pain, and swelling, Cardiovascular: Negative for chest pain, palpitations, and edema, Respiratory: Negative for shortness of breath, cough, wheezing, and pleuritic chest pain, Abdomen/GI: Negative for abdominal pain, nausea, vomiting, diarrhea, and constipation, Back: Negative for injury and pain, : Negative for injury, bleeding, discharge, and swelling, MS/Extremity: Negative for injury and deformity, Skin: Negative for injury, rash, and discoloration, Neuro: Negative for headache, weakness, numbness, tingling, and seizure, Allergy/Immunology: Negative for hives, rash, and allergies, Endocrine: Negative for neck swelling, polydipsia, polyuria, polyphagia, and marked weight changes, Hematologic/Lymphatic: Negative for swollen nodes, abnormal bleeding, and unusual bruising. 01:07 Psych: Positive for anxiety, schizophrenia. Exam: :07 Constitutional: This is a well developed, well nourished patient who is awake, alert, kendrick and in no acute distress. Head/Face: Normocephalic, atraumatic. Eyes: Pupils equal round and reactive to light, extra-ocular motions intact. Lids and lashes normal. Conjunctiva and sclera are non-icteric and not injected. Cornea within normal limits. Periorbital areas with no swelling, redness, or edema. ENT: Nares patent. No nasal discharge, no septal abnormalities noted. Tympanic membranes are normal and external auditory canals are clear. Oropharynx with no redness, swelling, or masses, exudates, or evidence of obstruction, uvula midline. Mucous membranes moist. Neck: Trachea midline, no thyromegaly or masses palpated, and no cervical lymphadenopathy. Supple, full range of motion without nuchal rigidity, or vertebral point tenderness. No Meningismus. Chest/axilla: Normal chest wall appearance and motion. Nontender with no deformity. No lesions are appreciated. Respiratory: Lungs have equal breath sounds bilaterally, clear to auscultation and percussion. No rales, rhonchi or wheezes noted. No increased work of breathing, no retractions or nasal flaring. Abdomen/GI: Soft, non-tender, with normal bowel sounds. No distension or tympany. No guarding or rebound. No evidence of tenderness throughout. Back: No spinal tenderness. No costovertebral tenderness. Full range of motion. Male : Normal genitalia with no discharge or lesions. Skin: Warm, dry with normal turgor. Normal color with no rashes, no lesions, and no evidence of cellulitis. MS/ Extremity: Pulses equal, no cyanosis. Neurovascular intact. Full, normal range of motion. Neuro: Awake and alert, GCS 15, oriented to person, place, time, and situation. Cranial nerves II-XII grossly intact. Motor strength 5/5 in all extremities. Sensory grossly intact. Cerebellar exam normal. Normal gait. Psych: Awake, alert, with orientation to person, place and time. Behavior, mood, and affect are within normal limits. 01:07 Cardiovascular: Rate: tachycardic, Rhythm: regular, Pulses: Pulses are 4+ in bilateral radial, brachial, femoral, popliteal, posterior tibial and and dorsalis pedis arteries.. Heart sounds: normal, Edema: is not appreciated, JVD: is not appreciated. Vital Signs: 00:27 BP 130 / 98; Pulse 118; Resp 17 S; Temp 98.1(O); Pulse Ox 97% on R/A; Weight 131.54 kg jd3 (R); Height 5 ft. 11 in. (180.34 cm) (R); Pain 10/10; 01:00 BP 121 / 85; Pulse 107; Resp 17 S; Pulse Ox 100% on R/A; rv 01:30 BP 114 / 77; Pulse 95; Resp 18 S; Pulse Ox 99% on R/A; rv 03:03 BP 136 / 95; Pulse 88; Resp 19 S; Pulse Ox 100% on R/A; rv 00:27 Body Mass Index 40.45 (131.54 kg, 180.34 cm) jd3 MDM: 00:53 Patient medically screened. [facility] 01:10 Data reviewed: vital signs, nurses notes, lab test result(s), EKG, radiologic studies, [facility] CT scan, plain films. 05/31 01:07 Order name: Acetaminophen; Complete Time: 02:30 [facility] 05/31 01:07 Order name: Basic Metabolic Panel; Complete Time: 02:30 [facility] 05/31 01:07 Order name: CBC with Diff; Complete Time: 02:30 [facility] 05/31 01:07 Order name: ETOH Level; Complete Time: 02:30 [facility] 05/31 01:07 Order name: Hepatic Function; Complete Time: 02:30 [facility] 05/31 01:07 Order name: PT-INR; Complete Time: 02:30 [facility] 05/31 01:07 Order name: Ptt, Activated; Complete Time: 02:30 [facility] 05/31 01:07 Order name: Salicylate; Complete Time: 02:30 [facility] 05/31 01:07 Order name: Urine Drug Screen [facility] 05/31 01:07 Order name: CT Head Brain wo Cont [facility] 05/31 01:44 Order name: Lipase; Complete Time: 02:30 [facility] 05/31 02:29 Order name: Urine Dipstick--Ancillary (enter results) ag4 05/31 01:07 Order name: EKG; Complete Time: 01:08 [facility] 05/31 01:07 Order name: EKG - Nurse/Tech; Complete Time: 01:52 [facility] 05/31 01:07 Order name: IV Saline Lock; Complete Time: 01:44 [facility] 05/31 01:07 Order name: Labs collected and sent; Complete Time: 01:44 [facility] 05/31 01:07 Order name: Urine Dipstick-Ancillary (obtain specimen); Complete Time: 02:37 [facility] Administered Medications: 01:29 Drug: NS 0.9% 1000 ml Route: IV; Rate: 1 bolus; Site: right antecubital; rr5 02:36 Follow up: IV Status: Completed infusion rv Disposition: 05/31/18 02:31 Discharged to Home. Impression: Schizophrenia. - Condition is Stable. - Discharge Instructions: Schizophrenia. - Medication Reconciliation Form, Thank You Letter, Antibiotic Education, Prescription Opioid Use form. - Follow up: Private Physician; When: 2 - 3 days; Reason: Recheck today's complaints, Continuance of care, Re-evaluation by your physician. - Problem is new. - Symptoms have improved. Signatures: Dispatcher [employer] [facility] Melquiades Snow MD MD cha Davies, Jonathon RN RN jd3 Anand Cline RN RN rv Roque, Raymond RN RN rr5 Corrections: (The following items were deleted from the chart) 01:43 01:10 LIPASE+C.LAB.BRZ ordered. [facility] 03:05 02:31 05/31/2018 02:31 Discharged to Home. Impression: Schizophrenia. Condition is rv Stable. Discharge Instructions: Schizophrenia. Forms are Medication Reconciliation Form, Thank You Letter, Antibiotic Education, Prescription Opioid Use. Follow up: Private Physician; When: 2 - 3 days; Reason: Recheck today's complaints, Continuance of care, Re-evaluation by your physician. Problem is new. Symptoms have improved. kendrick
[2018-05-31 03:15] LABS: Barbiturates NEGATIVE (NEGATIVE); Benzodiazepines NEGATIVE (NEGATIVE); Cocaine NEGATIVE (NEGATIVE); METHAMPHETAM POSITIVE (NEGATIVE); Methadone NEGATIVE (NEGATIVE); Opiates NEGATIVE (NEGATIVE); Phencyclidine NEGATIVE (NEGATIVE); THC Cannibis NEGATIVE (NEGATIVE)
[2018-05-31 05:17] VITALS: TEMP 98.1
[2018-05-31 05:20] VITALS: BP 136/95; O2SAT 100
[2018-05-31 05:48] LABS: Urine Blood 1+ (NEG); Urine Glucose NEGATIVE (NEG); Urine Protein 2+ (NEG); Urine pH 5.5 (5.0-7.0)
--- NOTE | 2018-05-31 10:31 | EKG ---
Test Date: 2018-04-30 Test Time: 01:49:14 Computer Operations Specialist: MEASUREMENT RESULTS: Intervals: Rate: 99 AL: 146 QRSD: 84 QT: 352 QTc: 451 [place]: P: 58 AL: 146 QRS: 65 T: 8 INTERPRETIVE STATEMENTS: Normal sinus rhythm Nonspecific T wave abnormality Abnormal ECG Compared to ECG 04/06/2017 07:17:58 T-wave abnormality now present Electronically Signed On 05-31-18 10:30:19 SOFTWARE DESIGN ANALYST by Ed Dozier
--- NOTE | 2018-05-31 20:28 | RAD REPORT ---
EXAM DESCRIPTION: Head Brain Wo Cont CLINICAL HISTORY: 28 years Male CONFUSED COMPARISON: None. TECHNIQUE: Contiguous axial images of the brain were obtained without the administration of intraven ous contrast. This exam was performed according to our departmental dose-optimization program, which includes automated exposure control, adjustment of the mA and/or kV according to patient size and/or less of iterative reconstruction technique. FINDINGS: Brain: No acute intracranial hemorrhage. No acute territorial infarct. No extra-axial yanni ection. No mass affect or herniation. Ventricles: Normal in size and configuration. Globes and orbits: No acute abnormality. Bones: No acute osseus finding. Paranasal sinuses: Right maxillary mucus retention cyst. No air-fluid level. Mastoid air cells: Partial right mastoid air cell opacification. Soft tissues: Within normal limits. Rn Home Health view shows no additional significant finding. IMPRESSION: No acute intracranial abnormality. Electronically signed by: Rey Torres DO 05/31/2018 2:19 AM EMAIL MARKETING INTERN Due to temporary technical issues with the PACS/Fluency reporting system, reports are being signed by the in house radiologist as a courtesy to ensure prompt reporting. The interpreting radiologist is f ully responsible for the content of the report.
== END 2018-05-31 03:05 | disposition home or self-care (01) ==
LOC: ER 23:52
DX: F20.9 Schizophrenia, unspecified (principal); I10 Essential (primary) hypertension; E11.9 Type 2 diabetes mellitus without complications; Z79.4 Long term (current) use of insulin; Z88.5 Allergy status to narcotic agent; Z88.8 Allergy status to other drugs, medicaments and biological substances
CPT/HCPCS: 36415; 70450; 80048; 80076; 80307; 80320; 80329; 81003; 83690; 85025; 85610; 85730; 93005; 96360; 99284; J7030

== ENCOUNTER 2024-01-31 17:18 | Emergency (ER) | payer SELFPAY ==
--- NOTE | 2024-02-01 17:36 | ER ---
Nurse's Notes [facility] Name: Kartik Swartz Jr Age: 33 yrs Sex: Male : 1990 Arrival Date: 01/31/2024 Time: 17:18 Bed 11 Private MD: Diagnosis: ED Course: 01/30 17:21 Patient arrived in ED. im 17:21 Kerry Kirkpatrick FNP-C is [facility]. kb 17:21 Leonie Delong MD is Attending Physician. kb Administered Medications: No medications were administered Outcome: 17:35 Eloped from waiting room, before seeing physician kb3 17:35 unknown 17:36 Patient left the ED. Signatures: Kerry Kirkpatrick FNP-C FNP-Ckb Baxter, Heather, RN RN Elyssa Lutz, BETSY RN kb3 Vanessa Lewis im
== END 2024-01-31 17:36 | disposition left against medical advice (07) ==
LOC: ER 17:18
DX: Z02.9 Encounter for administrative examinations, unspecified (principal)

== ENCOUNTER 2024-06-08 18:29 | Emergency (ER) | payer SELFPAY ==
--- OUTSIDE RECORDS SUMMARY | 2024-06-08 18:36 | XMS REPORT | Continuity of Care Document ---
Author Name Unknown Address [address] [facility] [address] [place] [address] [facility] Address [address] [facility] [address] [place] [address] Care Team Providers Care Electrical Products Engineer Name Role Phone PCP, PATIENT DOES NOT HAVE A Primary Care Physic linden Unavailable XOCHITL FREEMAN Attending Clinician Unavailable Xochitl Freeman PA-C Attending Clinician [phone] ESSENCE LANDRY Attending Clinician Unavailable Essence Landry MD Attending Clinician [phone] Doctor Unassigned, Swift Bird Attending Clinician U Laney Haynes LVN Attending Clinician [phone] GORGE TAVAREZ Attending Clinician Unavailable Franklin Chatman MD Attending Clinician [phone] Chaim Ji MD Attending Clinician [phone] Groge Tavarez MD Attending Clinician [phone] XOCHITL ECHOLS Attending Clinician Unavail Nikolay Cruz Attending Clinician [phone] ESSENCE LANDRY Admitting Clinician Unavailable Essence Landry MD Admitting Clinician [phone] GORGE TAVAREZ Admitting Clinician Unavailable Gorge Tavarez MD Admitting Clinician [phone] Payers Payer Name Policy Type Policy Number Effective Date Expirati on Date Source [facility] [id number] 00:00:00 [facility] [id number] 4020-11-03 00:00:00 Problems Condition Name Condition Details Condition Category Status Onset Date Resolution Date Last Treatment Date Treating Clinician Comments Source Incarcerat ed right inguinal hernia Incarcerat ed right inguinal hernia Disease Active 08-13 00:00: 00 Overview: Formattin g of this note might be different from the original. Added automatic ally from request for surgery [id number] [facility] Essential hypertensi on Essential hypertensi on Disease Active 2020-04 00:00: 00 [facility] Dyslipidem ia Dyslipidem ia Disease Active 2020-04 00:00: 00 [facility] Type 2 diabetes mellitus with other specified complicati on Type 2 diabetes mellitus with other specified complicati on Disease Active 2020-04 00:00: 00 [facility] Atypical chest pain Atypical chest pain Disease Active 2020-04 00:00: 00 [facility] Tachycardi a Tachycardi a Disease Active 2020-04 00:00: 00 [facility] Acute respirator y distress Acute respirator y distress Disease Active 2020-04 00:00: 00 [facility] Obesity (BMI 30-39.9) Obesity (BMI 30-39.9) Disease Active 10-30 00:00: 00 [facility] DKA (diabetic ketoacidos es) DKA (diabetic ketoacidos es) Disease Active 10-30 00:00: 00 [facility] Hyperlipid emia, unspecifie d hyperlipid emia type Hyperlipid emia, unspecifie d hyperlipid emia type Problem Active [facility] Type 2 diabetes mellitus with hyperglyce juan daniel Type 2 diabetes mellitus with hyperglyce juan daniel Problem Active [facility] 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 Problem Active [facility] History of pancreatit is History of pancreatit is Problem Active [facility] Anxiety Anxiety Problem Active [facility] Hypertensi on, unspecifie d type Hypertensi on, unspecifie d type Problem Active [facility] Allergies, Adverse Reactions, Alerts Allergy Name Allergy Type Status Severity Reaction(s) Onset Date Inactive Date Treating Clinician Comments Source RISPERID ONE DRUG INGREDI Active Hives 08-12 00:00: 00 [facility] Risperid one Propensi ty to adverse reaction s Active Hives 08-12 00:00: 00 [facility] CODEINE DRUG INGREDI Active Hives 10-30 00:00: 00 [facility] GUAIFENE SIN DRUG INGREDI Active SOB 10-30 00:00: 00 [facility] Codeine Propensi ty to adverse reaction s Active Hives 10-30 00:00: 00 [facility] Guaifene sin Propensi ty to adverse reaction s Active Shortness of Breath 10-30 00:00: 00 [facility] Social History Social Habit Start Date Stop Date Quantity Comments Source History of tobacco use Cigarette Smoker [facility] Gender identity [facility] Sexual orientation [facility] Cigarettes smoked current (pack per day) - Reported 2022-11-23 00:00:00 2022-11-23 00:00:00 [facility] Cigarette pack-years 2022-11-23 00:00:00 2022-11-23 00:00:00 [facility] Tobacco use and exposure 2022-11-23 00:00:00 2022-11-23 00:00:00 Smokeless tobacco non-user [facility] Alcohol intake 2022-11-23 00:00:00 2022-11-23 00:00:00 Current non-drinker of alcohol (finding) [facility] Alcoholic beverage intake 2022-11-23 00:00:00 2022-11-23 00:00:00 Current non-drinker of alcohol (finding) [facility] History of Social function 2022-09-24 00:00:00 2022-09-24 00:00:00 [facility] Exposure to SARS-CoV-2 (event) 2022-09-05 00:00:00 2022-09-15 09:47:00 Not sure [facility] Sex assigned at 1990 00:00:00 1990 00:00:00 [facility] Smoking Status Start Date Stop Date Source Ex-smoker 2022-11-23 00:00:00 2022-11-23 00:00:[address] [facility] Current every day smoker 2020-06-19 00:00:00 [facility] Medications Ordered Medication Name Filled Medication Name Start Date Stop Date Current Medication? Ordering Clinician Indication Dosage Frequency Signature (SIG) Comments Components Source ketorolac (TORADOL) tablet 10 mg 05-09 03:15: 00 05-09 02:21 :00 No 10mg 10 mg, Oral, ONCE, 1 dose, On Tue05/08/24 at 2115, Routine [facility] methocarbam oL (ROBAXIN) tablet 1,000 mg 05-09 02:30: 00 05-09 02:21 :00 No 1000mg 1,000 mg, Oral, ONCE, 1 dose, On Tue05/08/24 at 2030, NICOLE [facility] methocarbam oL 500 mg tablet 05-08 00:00: 00 Yes [id number] 500mg Take 1 tablet by mouth 3 (three) times daily as needed for Pain (scale 4-6). [facility] naproxen (NAPROSYN) 500 mg tablet 05-08 00:00: 00 Yes [id number] 500mg Take 1 tablet by mouth in the morning and 1 tablet in the evening. Take with meals. [facility] citalopram 20 mg tablet 10-12 14:44: 12 Yes 20mg Take 1 tablet by mouth in the morning. [facility] metFORMIN 1,000 mg tablet 10-12 14:44: 12 Yes 1000mg Take 1 tablet by mouth in the morning and 1 tablet in the evening. Take with meals. [facility] metoprolol tartrate 50 mg tablet 10-12 14:44: 12 Yes 50mg Take 1 tablet by mouth in the morning and 1 tablet in the evening. [facility] lactated ringers IV infusion 1,000 mL 09-24 21:15: 00 Yes 1000mL at 75 mL/hr, 1,000 mL, IV Infusion, CONTINUOUS , Starting on Tue09/24/22 at 1615, Until Discontinu ed, Routine, PACU [facility] FENTanyl PF (SUBLIMAZE (PF)) injection 25 mcg 09-24 21:03: 56 Yes 25ug 25 mcg, Slow IV Push, Q5MIN PRN, 4 doses, Starting on Tue09/24/22 at 1603, Until Discontinu ed, Routine, Pain (scale 4-6), PACU [facility] ondansetron (ZOFRAN (PF)) injection 4 mg 09-24 21:03: 56 Yes 4mg 4 mg, Slow IV Push, PRN, 1 dose, Starting on Tue09/24/22 at 1603, Until Discontinu ed, Routine, Nausea and Vomiting (N/V), PACU [facility] sodium chloride 0.9 % irrigation solution 09-24 18:06: 00 09-24 21:05 :01 No PRN, Starting on Tue09/24/22 at 1306, Until Tue09/24/22 at 1605, Intra-op [facility] bupivacaine (preserv free) (SENSORCAIN E MPF) 0.25 % (2.5 mg/mL) 30 mL, BUPivacaine liposome (PF) (EXPAREL (PF)) 1.3 % (13.3 mg/mL) 20 mg, NaCl 0.9% (NS) 50 mL 09-24 18:06: 00 09-24 21:05 :01 No PRN, Starting on Tue09/24/22 at 1306, Intra-op [facility] citalopram 20 mg tablet 09-24 17:20: 52 Yes 20mg Take 1 tablet by mouth in the morning. [facility] metFORMIN 1,000 mg tablet 09-24 17:20: 52 Yes 1000mg Take 1 tablet by mouth in the morning and 1 tablet in the evening. Take with meals. [facility] metoprolol tartrate 50 mg tablet 09-24 17:20: 52 Yes 50mg Take 1 tablet by mouth in the morning and 1 tablet in the evening. [facility] lactated ringers IV infusion 1,000 mL 09-24 15:30: 00 09-24 15:42 :00 No 1000mL at 42 mL/hr, 1,000 mL, IV Infusion, ONCE, 1 dose, On Tue09/24/22 at 1030, Routine, DSU Pre-op [facility] acetaminoph en (TYLENOL) 325 mg Cap 09-24 00:00: 00 10-09 04:59 :00 No [id number] 650mg Take 650 mg by mouth in the morning and 650 mg at noon and 650 mg in the evening. Do all this for 14 days. [facility] celecoxib (CELEBREX) 200 mg capsule 09-24 00:00: 00 10-02 04:59 :00 No [id number] 200mg Take 1 capsule by mouth in the morning and 1 capsule in the evening. Take with meals. Do all this for 7 days. [facility] docusate 100 mg capsule 08-12 09:21: 09 08-12 00:00 :00 No 100mg Take 1 capsule by mouth in the morning. [facility] citalopram (CELEXA) 20 mg tablet 08-12 08:52: 02 Yes 20mg Take 1 tablet by mouth in the morning. [facility] metFORMIN 1,000 mg tablet 08-12 08:52: 02 Yes 1000mg Take 1 tablet by mouth in the morning and 1 tablet in the evening. Take with meals. [facility] aspirin 81 mg chewable tablet 2020-04 00:00: 00 08-12 00:00 :00 No [id number] 81mg Take 1 tablet by mouth daily with breakfast. [facility] docusate (COLACE) 100 mg capsule 2020-04 13:41: 43 Yes 100mg Take 100 mg by mouth daily. [facility] OLANZAPINE (ZYPREXA ORAL) 2020-04 10:34: 52 03-12 00:00 :00 No 20mg Take 20 mg by mouth every evening. [facility] benztropine 1 mg tablet 2020-04 10:34: 52 03-12 00:00 :00 No 1mg Take 1 mg by mouth daily. [facility] METOPROLOL SUCCINATE ORAL 2020-04 10:34: 52 03-12 00:00 :00 No 50mg Take 50 mg by mouth daily. [facility] omeprazole 10 mg capsule 2020-04 10:34: 52 03-12 00:00 :00 No 20mg Take 20 mg by mouth daily. [facility] pravastatin 20 mg tablet 2020-04 10:34: 52 03-12 00:00 :00 No 20mg Take 20 mg by mouth at bedtime. [facility] pravastatin 20 mg tablet 2020-04 00:00: 00 Yes [id number] 20mg Take 1 tablet by mouth at bedtime. [facility] OLANZapine (ZYPREXA) 20 mg tablet 2020-04 00:00: 00 Yes [id number] 20mg Take 1 tablet by mouth at bedtime. [facility] metoprolol succinate XL 50 mg 24 hr tablet 2020-04 00:00: 00 09-24 00:00 :00 No [id number] 50mg Take 1 tablet by mouth 2 (two) times daily. [facility] metformin ER 500 mg 24 hr tablet 2020-04 00:00: 00 08-12 00:00 :00 No [id number] 500mg Take 1 tablet by mouth 2 (two) times daily. [facility] benztropine 1 mg tablet 2020-04 00:00: 00 08-12 00:00 :00 No [id number] 1mg Take 1 tablet by mouth daily. [facility] omeprazole 20 mg capsule 2020-04 00:00: 00 08-12 00:00 :00 No [id number] 20mg Take 1 capsule by mouth daily. [facility] traMADoL 50 mg tablet 2020-04 00:00: 00 08-12 00:00 :00 No [id number] 50mg Take 1 tablet by mouth every 6 (six) hours as needed for Pain (scale 4-6). Indication s: acute pain [facility] acidophilus 100 million cell tablet 2020-04 00:00: 00 08-12 00:00 :00 No [id number] 1g Take 1 tablet by mouth 2 (two) times daily. [facility] amoxicillin -pot clavulanate 500 mg (AUGMENTIN) 500-125 mg tablet 2020-04 00:00: 00 04-03 05:59 :00 No [id number] 500mg Take 1 tablet by mouth 2 (two) times daily for 21 days. [facility] FENTanyl PF (SUBLIMAZE (PF)) injection 50 mcg 2020-04 23:00: 00 Yes 50ug 50 mcg, Slow IV Push, Q8HPRN, Starting on Tue03/11/21 at 1700, Until Discontinu ed, Routine, Pain (scale 7-10) [facility] alteplase (ACTIVASE) flush syringe 10 mg 2020-04 01:15: 00 03-10 00:18 :00 No 10mg 10 mg, Chest Tube, ONCE, 1 dose, On Tue03/09/21 at 1915, NICOLE [facility] alteplase (ACTIVASE) flush syringe 10 mg 2020-04 14:30: 00 03-09 16:11 :00 No 10mg 10 mg, Chest Tube, Q24H, 3 doses, First dose on Tue03/07/21 at 0830, Last dose on Tue03/09/21 at 0830, Routine [facility] dornase kely (PULMOZYME) nebulizer solution Soln 5 mg 2020-04 23:30: 00 03-10 16:50 :35 No 5mg 5 mg, Intrapleur al, Q24H, First dose (after last modificati on) on Tue03/06/21 at 1730, Until Discontinu ed, NICOLE [facility] alteplase (ACTIVASE) flush syringe 10 mg 2020-04 23:30: 00 03-09 23:29 :00 No 10mg 10 mg, Chest Tube, Q24H, 3 doses, First dose (after last modificati on) on Tue03/06/21 at 1730, Last dose on Tue03/08/21 at 1730, NICOLE [facility] dornase kely (PULMOZYME) nebulizer solution Soln 5 mg 2020-04 14:30: 00 03-10 16:50 :35 No 5mg 5 mg, Intrapleur al, Q24H, First dose on Tue03/06/21 at 0830, Until Discontinu ed, Routine [facility] ipratropium -albuteroL (DUONEB) 0.5 mg-3 mg(2.5 mg base)/3 mL nebulizer solution 3 mL 2020-04 21:56: 33 Yes 3mL 3 mL, Inhalation , QIDPRN, Starting on Tue03/05/21 at 1556, Until Discontinu ed, Routine, Wheezing [facility] benzocaine- menthoL (CEPACOL SORE THROAT (DECLAN-MEN)) lozenge 1 Lozenge 2020-04 21:43: 42 Yes 1{lozen ge} 1 Lozenge, Oral, Q4HPRN, Starting on Tue03/03/21 at 1543, Until Discontinu ed, Routine, Sore throat [facility] NaCl 0.9% (NS) IV infusion 500 mL 2020-04 21:00: 00 03-03 21:12 :00 No 500mL at 100 mL/hr, IV Infusion, ONCE, 1 dose, On Tue03/03/21 at 1500, Routine [facility] traMADoL (ULTRAM) tablet 50 mg 2020-04 15:35: 18 Yes 50mg 50 mg, Oral, Q6HPRN, Starting on Tue03/03/21 at 0935, Until Discontinu ed, Routine, Pain (scale 4-6) [facility] melatonin (MELATIN) tablet 3 mg 2020-04 05:00: 00 Yes 3mg 3 mg, Oral, QHS, First dose on Tue03/02/21 at 2300, Until Discontinu ed, Routine [facility] KCL (KLOR-CON M20) tablet 40 mEq 2020-04 02:00: 00 03-03 01:59 :00 No 40meq 40 mEq, Oral, BID, 1 dose, First dose (after last reorder) on Tue03/02/21 at 2000, Routine [facility] KCL (KLOR-CON M20) tablet 40 mEq 2020-04 15:15: 00 03-02 14:22 :00 No 40meq 40 mEq, Oral, ONCE, 1 dose, On Tue03/02/21 at 0915, Routine [facility] doxycycline hyclate (Vibramycin ) capsule 100 mg 2020-04 14:45: 00 03-10 14:50 :32 No 100mg 100 mg, Oral, BID, First dose on Tue03/01/21 at 0845, Until Discontinu ed, NICOLE
Re ason for Anti-Infec tive: Empiric Therapy for Suspected Infection< br>Empiric Therapy Site: Respirator y
Durat ion of therapy: 7 days [facility] ipratropium -albuteroL (DUONEB) 0.5 mg-3 mg(2.5 mg base)/3 mL nebulizer solution 3 mL 2020-04 07:45: 00 03-05 21:56 :14 No 3mL 3 mL, Inhalation , QID, First dose (after last modificati on) on Tue03/01/21 at 0145, Until Discontinu ed, Routine [facility] pseudoephed rine (SUDAFED) tablet 30 mg 2020-04 17:15: 00 Yes 30mg 30 mg, Oral, Q8H, First dose on 02/28/21 at 1215, Until Discontinu ed, Routine [facility] acetaminoph en (TYLENOL) tablet 1,000 mg 2020-04 17:12: 29 Yes 1000mg 1,000 mg, Oral, Q6HPRN, Starting on 02/28/21 at 1212, Until Discontinu ed, Routine, Pain (scale 1-3), Temp > 38.5 C [facility] sodium chloride 7% (HYPER-WAYNE) nebulizer solution 4 mL 2020-04 14:45: 00 02-28 16:05 :00 No 4mL 4 mL, Inhalation , ONCE, 1 dose, On 02/28/21 at 0945, Routine [facility] benzonatate (TESSALON PERLES) capsule 100 mg 2020-04 10:51: 05 Yes 100mg 100 mg, Oral, Q8HPRN, Starting on 02/28/21 at 0551, Until Discontinu ed, Routine, Cough [facility] HYDROcodone -acetaminop hen (NORCO 5) 5-325 mg tablet 1 tablet 2020-04 06:09: 17 03-02 07:08 :17 No 1{tbl} 1 tablet, Oral, Q6HPRN, Starting on 02/28/21 at 0109, Until 03/02/21 at 0108, Routine, Pain (scale 4-6) [facility] sulfur hexafluorid e microsphr (LUMASON) injection 5 mL 2020-04 18:30: 00 02-26 18:45 :00 No [id number] 5mL 5 mL, Intravenou s, ONCE, 1 dose, On Maureen 02/26/21 at 1345, Routine
membership coordinator approving Restricted medication : IVELISSE MANRIQUE [facility] enoxaparin (LOVENOX) injection 40 mg 2020-04 14:00: 00 Yes 40mg 40 mg, Subcutaneo us, DAILY, First dose on Maureen 02/26/21 at 0900, Until Discontinu ed, Routine [facility] levoFLOXaci n in D5W (LEVAQUIN) 750 mg/150 mL Piggyback 750 mg 2020-04 08:30: 00 02-26 18:06 :28 No 750mg 750 mg, IV Piggyback, Q24H ABX, First dose on Maureen 02/26/21 at 0330, Until Discontinu ed, Administer over 90 Minutes, 150 mL
Reas on for Anti-Infec tive: Empiric Therapy for Suspected Infection& lt;br>Empi pola Therapy Site: Respirator y
Durat ion of therapy: 7 days [facility] vancomycin 1500 mg in NS 500 mL IV Piggyback RTU 1,500 mg 2020-04 07:30: 00 02-27 15:07 :52 No 15mg/kg 1,500 mg (rounded from 1,732.5 mg = 15 mg/kg ?115.5 kg), IV Piggyback, Q12H ABX, First dose on Maureen 02/26/21 at 0230, Until Discontinu ed, Administer over 90 Minutes
Reason for Anti-Infec tive: Empiric Therapy for Suspected Infection< br>Empiric Therapy Site: Respirator y
Durat ion of therapy: 7 days [facility] ipratropium -albuteroL (DUONEB) 0.5 mg-3 mg(2.5 mg base)/3 mL nebulizer solution 3 mL 2020-04 06:15: 00 03-01 07:34 :57 No 3mL 3 mL, Inhalation , BID, First dose on Maureen 02/26/21 at 0115, Until Discontinu ed, Routine [facility] piperacilli n-tazobacta m (ZOSYN) 3.375 g in NaCl 0.9% (NS) 100 mL MINI-BAG 2020-04 05:00: 00 Yes 3.375g 3.375 g, IV Piggyback, Q6H ABX, First dose (after last reorder) on Tue02/26/21 at 0000, Until Discontinu ed, Administer over 30 Minutes, 100 mL
Reas on for Anti-Infec tive: Documented Infection& lt;br>Docu mented Infection Site: Respirator y
Durat ion of Therapy: Other (see Comments) [facility] furosemide (LASIX) injection 20 mg 2020-04 05:00: 00 02-26 04:35 :00 No 20mg 20 mg, IV Push, ONCE, 1 dose, On Tue02/26/21 at 0000[facility] 5 mg 2020-04 04:45: 00 02-26 04:04 :00 No 5mg 5 mg, Slow IV Push, ONCE, 1 dose, On Tue02/25/21 at 2345, [facility] Sliding Scale Insulin - Lispro (HumaLOG) + Fsbg Testing 2020-04 04:15: 00 Yes Subcutaneo us, TID MEALS, First dose on Tue02/25/21 at 2315, Until Discontinu ed, Routine [facility] aspirin chewable tablet 81 mg 2020-04 04:15: 00 Yes 81mg 81 mg, Oral, QAM WITH BREAKFAST, First dose on Tue02/25/21 at 2315, Until Discontinu ed, Routine [facility] FENTanyl PF (SUBLIMAZE (PF)) injection 50 mcg 2020-04 03:48: 36 03-11 22:51 :45 No 50ug 50 mcg, Slow IV Push, Q4HPRN, Starting on Tue02/25/21 at 2248, Until Tue03/11/21 at 1651, Routine, Pain (scale 7-10) [facility] metoprolol succinate XL (TOPROL XL) tablet 50 mg 2020-04 03:45: 00 Yes 50mg 50 mg, Oral, BID, First dose on Tue02/25/21 at 2245, Until Discontinu ed, Routine [facility] sennosides (SENOKOT) tablet 8.6 mg 2020-04 03:45: 00 Yes 8.6mg 8.6 mg, Oral, BID, First dose on Tue02/25/21 at 2245, Until Discontinu ed, Routine [facility] docusate (COLACE) capsule 100 mg 2020-04 03:45: 00 Yes 100mg 100 mg, Oral, BID, First dose on Tue02/25/21 at 2245, Until Discontinu ed, Routine [facility] omeprazole (PRILOSEC) capsule 40 mg 2020-04 03:45: 00 Yes 40mg 40 mg, Oral, DAILY, First dose on Tue02/25/21 at 2245, Until Discontinu ed, Routine [facility] pravastatin (PRAVACHOL) tablet 20 mg 2020-04 03:45: 00 Yes 20mg 20 mg, Oral, QHS, First dose on Tue02/25/21 at 2245, Until Discontinu ed, Routine [facility] OLANZapine (ZyPREXA) tablet 20 mg 2020-04 03:45: 00 Yes 20mg 20 mg, Oral, QPM, First dose on Tue02/25/21 at 2245, Until Discontinu ed, [facility] ben[facility] (COGENTIN[facility] tablet 2 mg 2020-04 03:45: 00 Yes 2mg 2 mg, Oral, QPM, First dose on Tue02/25/21 at 2245, Until Discontinu ed, Routine [facility] nitroglycer in (NITROSTAT) sublingual tablet 0.4 mg 2020-04 01:09: 31 Yes .4mg 0.4 mg, Sublingual , Q5MIN PRN, Starting on Tue02/25/21 at 2008, Until Discontinu ed, Routine, Chest pain [facility] morpHINE injection 4 mg 2020-04 01:09: 00 02-26 03:48 :46 No 4mg 4 mg, Slow IV Push, Q4HPRN, Starting on Tue02/25/21 at 2008, Until Tue02/25/21 at 2248, Routine, Pain (scale 7-10) [facility] HYDROcodone -acetaminop hen (NORCO 5) 5-325 mg tablet 1 tablet 2020-04 01:08: 58 02-28 01:07 :58 No 1{tbl} 1 tablet, Oral, Q6HPRN, Starting on Tue02/25/21 at 2007, Until Tue02/27/21 at 2007, Routine, Pain (scale 4-6) [facility] acetaminoph en (TYLENOL) tablet 650 mg 2020-04 01:08: 57 02-28 17:12 :47 No 650mg 650 mg, Oral, Q6HPRN, Starting on Tue02/25/21 at 2007, Until Tue02/28/21 at 1212, Routine, Pain (scale 1-3) [facility] LIPASE/PROT EASE/AMYLAS E (CREON ORAL) 2020-04 22:59: 11 02-25 00:00 :00 No Take by mouth. [facility] piperacilli n-tazobacta m (ZOSYN) 3.375 g in NaCl 0.9% (NS) 100 mL MINI-BAG 2020-04 22:30: 00 02-25 22:00 :00 No 3.375g 3.375 g, IV Piggyback, ONCE, 1 dose, On Tue02/25/21 at 1730, Administer over 30 Minutes, 100 mL
Reas on for Anti-Infec tive: Documented Infection< br>Documen deshaun Infection Site: Respirator y
Durat ion of Therapy: Other (see Comments) [facility] ondansetron (ZOFRAN (PF)) injection 4 mg 2020-04 21:39: 00 02-25 21:40 :00 No 4mg 4 mg, Slow IV Push, ONCE, 1 dose, On Tue02/25/21 at 1645, NICOLE [facility] FENTanyl PF (SUBLIMAZE (PF)) injection 50 mcg 2020-04 21:39: 00 02-25 21:40 :00 No 50ug 50 mcg, Slow IV Push, ONCE, 1 dose, On Tue02/25/21 at 1645, Routine [facility] iopamidol (ISOVUE 370-500 mL) injection 120 mL 2020-04 18:15: 00 02-25 18:14 :00 No [id number] 120mL 120 mL, Intravenou s, ONCE, 1 dose, On Tue02/25/21 at 1315, Routine [facility] NaCl 0.9% (NS) bolus infusion 1,000 mL 2020-04 17:15: 00 02-25 17:45 :00 No 1000mL at 999 mL/hr, 1,000 mL, IV Infusion, ONCE, 1 dose, On Tue02/25/21 at 1215, NICOLE [facility] iohexol (OMNIPAQUE 350 BULK-150 mL) injection 120 mL 06-19 23:00: 00 06-19 22:47 :00 No 120mL 120 mL, Intravenou s, ONCE, 1 dose, Maureen 06/19/20 at 1700, Routine [facility] NaCl 0.9% (NS) bolus infusion 1,000 mL 06-19 21:45: 00 06-20 00:00 :00 No 1000mL at 999 mL/hr, 1,000 mL, IV Infusion, ONCE, 1 dose, Maureen 06/19/20 at 1545, [facility] naproxen sodium (ANAPROX DS) 550 mg tablet 06-19 00:00: 00 Yes [id number] 08 550mg Take 1 tablet by mouth 2 (two) times daily with meals. [facility] OLANZAPINE (ZYPREXA ORAL) 05-05 15:44: 36 Yes 10mg Take 10 mg by mouth every evening. [facility] LIPASE/PROT EASE/AMYLAS E (CREON ORAL) 05-05 15:44: 36 Yes Take by mouth. [facility] fenofibrate 145 mg tablet 05-05 00:00: 00 Yes [id number] 145mg Take 1 tablet by mouth daily. [facility] Insulin Glargine (BASAGLAR KWIKPEN U-100 INSULIN) 100 unit/mL (3 mL) injection 05-05 00:00: 00 Yes [id number] 60U inject 60 Units under the skin daily. [facility] carvedilol 25 mg tablet 12-23 00:00: 00 Yes [id number] 25mg Take 1 tablet by mouth 2 (two) times daily with meals. [facility] atorvastati n 40 mg tablet 12-23 00:00: 00 Yes [id number] 40mg Take 1 tablet by mouth at bedtime. [facility] metformin ER 750 mg 24 hr tablet 12-23 00:00: 00 Yes 750mg Take 1 tablet by mouth 2 (two) times daily. [facility] losartan 50 mg tablet 12-23 00:00: 00 Yes 50mg Take 1 tablet by mouth daily. [facility] ibuprofen 800 mg tablet 09-02 00:00: 00 Yes 800mg Take 1 tablet by mouth every 8 (eight) hours as needed for Pain (scale 4-6). [facility] Niacin ER Niacin ER Yes Bee Millender 1 capsule with food [facility] Atorvastati n Calcium Atorvastati n Calcium Yes Bee Millender 1 tablet in evening [facility] Coreg Coreg Yes Bee Millender 1 tablet [facility] [facility] Mobic Mobic Yes Bee Millender 1 tablet [facility] Lofibra Lofibra Yes Bee Millender 1 tablet with food [facility] Indomethaci n Indomethaci n Yes Bee Millender 1 capsule with food or milk [facility] Creon Creon Yes Bee Millender not defined [facility] Metformin HCl Metformin HCl Yes Bee Millender 1 tablet with meals [facility] Lantus SoloStar Lantus SoloStar Yes Bee Millender 60 units [facility] Losartan Potassium Losartan Potassium Yes Bee Millender 1 tablet [facility] Aspir-Low Aspir-Low Yes Bee Millender 1 tablet [facility] Zyprexa Zyprexa Yes Bee Rgender 1 tablet [facility] Ketoprofen Ketoprofen Yes Bee Rgender 1 capsule Common [facility] Vital Signs Vital Name Observation Time Observation Value Comments Alfredo medrano Systolic blood pressure 2024-05-09 02:40:00 186 mm[Hg] [facility] Diastolic blood pressure 2024-05-09 02:40:00 123 mm[Hg] [facility] Heart rate 2024-05-09 02:40:00 108 /min [facility] Respiratory rate 2024-05-09 02:40:00 18 /min [facility] Oxygen saturation in Arterial blood by Pulse oximetry 2024-05-09 02:40:00 99 /min [facility] Body temperature 2024-05-09 01:15:00 36.44 Kristi [facility] Body weight 2024-05-09 01:15:00 102.059 kg [facility] BMI 2024-05-09 01:15:00 33.23 kg/m2 [facility] Systolic blood pressure 2022-11-23 18:58:00 134 mm[Hg] [facility] Diastolic blood pressure 2022-11-23 18:58:00 95 mm[Hg] [facility] Heart rate 2022-11-23 18:58:00 86 /min [facility] O[facility] saturation in Arterial blood by Pulse oximetry 2022-11-23 18:58:00 96 /min [facility] Body temperature 2022-11-23 18:57:00 36.67 Kristi [facility] Respiratory rate 2022-11-23 18:57:00 20 /min [facility] Body height 2022-11-23 18:57:00 175.3 cm [facility] Body weight 2022-11-23 18:57:00 113.399 kg [facility] BMI 2022-11-23 18:57:00 36.92 kg/m2 [facility] Systolic blood pressure 2022-10-12 19:42:00 127 mm[Hg] [facility] Diastolic blood pressure 2022-10-12 19:42:00 85 mm[Hg] [facility] Body temperature 2022-10-12 19:42:00 36.67 Kristi [facility] Respiratory rate 2022-10-12 19:42:00 18 /min [facility] Body height 2022-10-12 19:42:00 177.8 cm [facility] Body weight 2022-10-12 19:42:00 110.043 kg [facility] BMI 2022-10-12 19:42:00 34.81 kg/m2 [facility] Oxygen saturation in Arterial blood by Pulse oximetry 2022-10-12 19:42:00 96 /min [facility] Heart rate 2022-09-24 21:50:00 112 /min [facility] Oxygen saturation in Arterial blood by Pulse oximetry 2022-09-24 21:50:00 95 /min [facility] Systolic blood pressure 2022-09-24 21:45:00 137 mm[Hg] [facility] Diastolic blood pressure 2022-09-24 21:45:00 84 mm[Hg] [facility] Body temperature 2022-09-24 21:00:00 36.33 Kristi [facility] Respiratory rate 2022-09-24 21:00:00 18 /min [facility] Body height 2022-09-24 15:28:00 177.8 cm [facility] Body weight 2022-09-24 15:28:00 113.399 kg [facility] BMI 2022-09-24 15:28:00 35.87 kg/m2 [facility] Systolic blood pressure 2022-09-24 15:28:00 135 mm[Hg] [facility] Diastolic blood pressure 2022-09-24 15:28:00 93 mm[Hg] [facility] Heart rate 2022-09-24 15:28:00 70 /min [facility] Body temperature 2022-09-24 15:28:00 36.33 Kristi [facility] Respiratory rate 2022-09-24 15:28:00 16 /min [facility] Body height 2022-09-24 15:28:00 177.8 cm [facility] Body weight 2022-09-24 15:28:00 113.399 kg [facility] BMI 2022-09-24 15:28:00 35.87 kg/m2 [facility] Oxygen saturation in Arterial blood by Pulse oximetry 2022-09-24 15:28:00 96 /min [facility] Systolic blood pressure 2022-08-12 13:49:00 141 mm[Hg] [facility] Diastolic blood pressure 2022-08-12 13:49:00 97 mm[Hg] [facility] Heart rate 2022-08-12 13:48:00 78 /min [facility] Body temperature 2022-08-12 13:48:00 36.06 Kristi [facility] Respiratory rate 2022-08-12 13:48:00 18 /min [facility] Body height 2022-08-12 13:48:00 177.8 cm [facility] Body weight 2022-08-12 13:48:00 113.399 kg [facility] BMI 2022-08-12 13:48:00 35.87 kg/m2 [facility] Oxygen saturation in Arterial blood by Pulse oximetry 2022-08-12 13:48:00 97 /min [facility] Systolic blood pressure 2021-03-12 13:39:00 111 mm[Hg] [facility] Diastolic blood pressure 2021-03-12 13:39:00 70 mm[Hg] [facility] Heart rate 2021-03-12 13:39:00 78 /min [facility] Body temperature 2021-03-12 13:39:00 36.39 Kristi [facility] Respiratory rate 2021-03-12 13:39:00 18 /min [facility] Oxygen saturation in Arterial blood by Pulse oximetry 2021-03-12 13:39:00 95 /min [facility] Body weight 2021-03-10 11:46:00 112.492 kg [facility] BMI 2021-03-10 11:46:00 35.58 kg/m2 [facility] Body height 2021-02-26 01:58:00 177.8 cm [facility] Systolic blood pressure 2020-06-19 23:00:00 135 mm[Hg] [facility] Diastolic blood pressure 2020-06-19 23:00:00 95 mm[Hg] [facility] Heart rate 2020-06-19 23:00:00 92 /min [facility] Respiratory rate 2020-06-19 23:00:00 19 /min [facility] Oxygen saturation in Arterial blood by Pulse oximetry 2020-06-19 23:00:00 98 /min [facility] Body temperature 2020-06-19 21:08:00 36.56 Kristi [facility] Body weight 2020-06-19 21:08:00 90.719 kg [facility] BMI 2020-06-19 21:08:00 29.53 kg/m2 [facility] Systolic blood pressure 2020-06-11 22:40:00 153 mm[Hg] [facility] Diastolic blood pressure 2020-06-11 22:40:00 108 mm[Hg] [facility] Heart rate 2020-06-11 22:40:00 115 /min [facility] Body temperature 2020-06-11 22:40:00 37.33 Kristi [facility] Respiratory rate 2020-06-11 22:40:00 18 /min [facility] Body weight 2020-06-11 22:40:00 113.399 kg [facility] BMI 2020-06-11 22:40:00 36.92 kg/m2 [facility] Oxygen saturation in Arterial blood by Pulse oximetry 2020-06-11 22:40:00 98 /min [facility] Procedures Procedure Date / Time Performed Performing Clinician Source POCT GLUCOSE (AUTOMATED) 2022-09-24 21:11:00 Essence Landry [facility] POCT GLUCOSE (AUTOMATED) 2022-09-24 21:11:00 Essence Landry [facility] INGUINAL HERNIORRHAPHY 2022-09-24 17:17:00 Dheeraj Landry [facility] POCT GLUCOSE (AUTOMATED) 2022-09-24 15:35:00 Essence Landry [facility] POCT GLUCOSE (AUTOMATED) 2022-09-24 15:35:00 Essence Landry [facility] DAY SURGERY - ADC 2022-09-24 05:01:00 Doctor Anika ssigned, [facility] EXTERNAL PROVIDER RECORDS 2022-08-18 05:01:00 Do ctor Unassigned, [facility] EXTERNAL PROVIDER RECORDS 2022-08-18 05:01:00 Do ctor Unassigned, [facility] PATIENT TEACHING/INSTRUCTIONS- OUTPATIENT 2022-08-16 05:01:00 Doctor Unassigned, [place] [facility] DISCLOSURE AND CONSENT, MEDICAL AND SURGICAL PROCEDURES 2022-08-13 05:01:00 Doctor Unassigned, [place] [facility] DISCLOSURE AND CONSENT, MEDICAL AND SURGICAL PROCEDURES 2022-08-13 05:01:00 Doctor Unassigned, [place] [facility] EXTERNAL PROVIDER RECORDS 2022-08-10 05:01:00 Do ctor Unassigned, [place] [facility] XR CHEST 1 VW 2021-03-12 07:52:00 Chaim Ji [facility] POCT GLUCOSE (AUTOMATED) 2021-03-12 03:03:00 Gorge Tavarez [facility] POCT GLUCOSE (AUTOMATED) 2021-03-11 22:42:00 Corby yunior [facility] POCT GLUCOSE (AUTOMATED) 2021-03-11 17:48:00 Corby yunior [facility] POCT GLUCOSE (AUTOMATED) 2021-03-11 14:06:00 Corby yunior [facility] CBC WITH DIFF 2021-03-11 10:11:00 [facility] POCT GLUCOSE (AUTOMATED) 2021-03-10 23:38:00 Corby yunior [facility] POCT GLUCOSE (AUTOMATED) 2021-03-10 17:46:00 [facility] POCT GLUCOSE (AUTOMATED) 2021-03-10 13:56:00 Corby [facility] MAGNESIUM 2021-03-10 11:45:00 [facility] BASIC METABOLIC PANEL (NA, K, CL, CO2, GLUCOSE, BUN, CREATININE, CA) 2021-03-10 11:45:00 Fred Marquez [facility] CBC WITH DIFF 2021-03-10 11:45:00 Fred Marquez [facility] XR CHEST 1 VW 2021-03-10 02:30:49 Fred Marquez [facility] POCT GLUCOSE (AUTOMATED) 2021-03-09 22:40:00 Cor[facility] POCT GLUCOSE (AUTOMATED) 2021-03-09 17:10:00 [facility] POCT GLUCOSE (AUTOMATED) 2021-03-09 13:43:00 Cor[facility] POCT GLUCOSE (AUTOMATED) 2021-03-09 03:25:00 Cor[facility] POCT GLUCOSE (AUTOMATED) 2021-03-08 22:35:00 Cor[facility] XR CHEST 1 VW 2021-03-08 21:55:38 Fred Marquez [facility] XR CHEST 1 VW 2021-03-08 18:47:03 Fred Marquez [facility] POCT GLUCOSE (AUTOMATED) 2021-03-08 17:23:00 [facility] POCT GLUCOSE (AUTOMATED) 2021-03-08 13:23:00 Cor[facility] MAGNESIUM 2021-03-08 12:06:00 [facility] BASIC METABOLIC PANEL (NA, K, CL, CO2, GLUCOSE, BUN, CREATININE, CA) 2021-03-08 12:06:00 Fred Marquez [facility] CBC WITH DIFF 2021-03-08 12:05:00 Fred Marquez [facility] POCT GLUCOSE (AUTOMATED) 2021-03-08 01:58:00 [facility] POCT GLUCOSE (AUTOMATED) 2021-03-07 22:48:00 [facility] POCT GLUCOSE (AUTOMATED) 2021-03-07 17:13:00 [facility] POCT GLUCOSE (AUTOMATED) 2021-03-07 14:37:00 [facility] POCT GLUCOSE (AUTOMATED) 2021-03-06 22:23:00 [facility] POCT GLUCOSE (AUTOMATED) 2021-03-06 18:13:00 Cor[facility] CT THORAX WO CONTRAST 2021-03-06 17:19:17 Jake Swanson [facility] POCT GLUCOSE (AUTOMATED) 2021-03-06 13:55:00 [facility] POCT GLUCOSE (AUTOMATED) 2021-03-06 02:53:00 [facility] POCT GLUCOSE (AUTOMATED) 2021-03-05 21:46:00 [facility] XR CHEST 1 VW 2021-03-05 18:48:00 Fred Marquez [facility] POCT GLUCOSE (AUTOMATED) 2021-03-05 17:47:00 [facility] POCT GLUCOSE (AUTOMATED) 2021-03-05 13:51:00 Corby yunior [facility] MAGNESIUM 2021-03-05 10:03:00 [facility] BASIC METABOLIC PANEL (NA, K, CL, CO2, GLUCOSE, BUN, CREATININE, CA) 2021-03-05 10:03:00 Fred Marquez [facility] CBC WITH DIFF 2021-03-05 10:02:00 Fred Marquez [facility] POCT GLUCOSE (AUTOMATED) 2021-03-04 22:05:00 [facility] CYTO PLEURAL FLUID 2021-03-04 21:57:00 Jake Swanson [facility] BODY FLUID DIRECT COUNT 2021-03-04 21:55:00 Laury Swanson [facility] T.PROTEIN BODY FLUID 2021-03-04 21:54:00 Jake Swanson [facility] FUNGUS (ROUTINE) CULTURE 2021-03-04 21:54:00 Dasha Swanson [facility] BODY FLUID CULTURE(AEROBIC/ANAEROBIC ) 2021-03-04 21:54:00 Jake Swanson [facility] LDH TOTAL BODY FLUID 2021-03-04 21:54:00 Jake Swanson [facility] XR CHEST 1 VW 2021-03-04 21:41:43 [facility] POCT GLUCOSE (AUTOMATED) 2021-03-04 17:11:00 Gorge Tavarez [facility] XR CHEST 1 VW 2021-03-04 16:12:48 Fred Marquez [facility] MAGNESIUM 2021-03-04 15:25:00 [facility] BASIC METABOLIC PANEL (NA, K, CL, CO2, GLUCOSE, BUN, CREATININE, CA) 2021-03-04 15:25:00 Fred Marquez [facility] POCT GLUCOSE (AUTOMATED) 2021-03-04 13:30:00 Gorge Tavarez [facility] LACTATE DEHYDROGENASE 2021-03-04 09:06:00 Jake Swanson [facility] CBC WITH DIFF 2021-03-04 09:06:00 Fred Marquez [facility] CT THORAX WO CONTRAST 2021-03-03 20:30:51 Josh Marquez [facility] POCT GLUCOSE (AUTOMATED) 2021-03-03 17:53:00 Gorge Tavarez [facility] POCT GLUCOSE (AUTOMATED) 2021-03-03 13:30:00 Gorge Tavarez [facility] PHOSPHORUS 2021-03-03 11:30:00 [facility] MAGNESIUM 2021-03-03 11:30:00 [facility] BASIC METABOLIC PANEL (NA, K, CL, CO2, GLUCOSE, BUN, CREATININE, CA) 2021-03-03 11:30:00 Chaim Ji [facility] CBC WITH DIFF 2021-03-03 11:30:00 Chaim Ji [facility] POCT GLUCOSE (AUTOMATED) 2021-03-03 01:52:00 [facility] POCT GLUCOSE (AUTOMATED) 2021-03-02 22:35:00 [facility] POCT GLUCOSE (AUTOMATED) 2021-03-02 17:42:00 Cor[facility] POCT GLUCOSE (AUTOMATED) 2021-03-02 13:35:00 Cor[facility] COMP. METABOLIC PANEL (47620) 2021-03-02 10:53:00 Chaim Ji [facility] CBC WITH DIFF 2021-03-02 10:52:00 Chaim Ji [facility] POCT GLUCOSE (AUTOMATED) 2021-03-02 03:55:00 [facility] POCT GLUCOSE (AUTOMATED) 2021-03-01 22:54:00 Cor[facility] POCT GLUCOSE (AUTOMATED) 2021-03-01 17:34:00 [facility] POCT GLUCOSE (AUTOMATED) 2021-03-01 14:28:00 Cor[facility] PHOSPHORUS 2021-03-01 09:22:00 [facility] MAGNESIUM 2021-03-01 09:22:00 Chaim Ji [facility] BASIC METABOLIC PANEL (NA, K, CL, CO2, GLUCOSE, BUN, CREATININE, CA) 2021-03-01 09:22:00 Chaim Ji [facility] CBC WITH DIFF 2021-03-01 09:22:00 Chaim Ji [facility] POCT GLUCOSE (AUTOMATED) 2021-03-01 00:42:00 Cor[facility] POCT GLUCOSE (AUTOMATED) 2021-02-28 22:04:00 Cor[facility] SPUTUM CULTURE 2021-02-28 17:09:00 Abdullah, Chaim [facility] POCT GLUCOSE (AUTOMATED) 2021-02-28 16:45:00 Gorge Tavarez [facility] PNEUMOCOCCAL ANTIGEN 2021-02-28 14:11:00 Dana Ji [facility] POCT GLUCOSE (AUTOMATED) 2021-02-28 12:52:00 Corby yunior [facility] COMP. METABOLIC PANEL ([id number]) 2021-02-28 11:09:00 Gorge Tavarez [facility] CBC WITH DIFF 2021-02-28 11:09:00 Chaim Ji [facility] POCT GLUCOSE (AUTOMATED) 2021-02-28 01:52:00 [facility] POCT GLUCOSE (AUTOMATED) 2021-02-27 21:46:00 Cor[facility] POCT GLUCOSE (AUTOMATED) 2021-02-27 16:40:00 Cor[facility] AFB CULTURE 2021-02-27 13:26:00 Gorge Tavarez [facility] MYCOBACTERIUM TUBERCULOSIS COMPLEX PCR 2021-02-27 13:26:00 Leigha Thorne [facility] POCT GLUCOSE (AUTOMATED) 2021-02-27 12:29:00 [facility] POCT GLUCOSE (AUTOMATED) 2021-02-27 11:07:00 Corby yunior [facility] PHOSPHORUS 2021-02-27 07:00:00 Chaim Ji [facility] MAGNESIUM 2021-02-27 07:00:00 Chaim Ji [facility] COMP. METABOLIC PANEL ([id number]) 2021-02-27 07:00:00 Gorge Tavarez [facility] VANCOMYCIN TROUGH 2021-02-27 07:00:00 Gorge Tavarez [facility] CBC WITH DIFF 2021-02-27 07:00:00 Chaim Ji [facility] POCT GLUCOSE (AUTOMATED) 2021-02-27 05:01:00 Corby, Adnan [facility] POCT GLUCOSE (AUTOMATED) 2021-02-27 00:19:00 Gorge Tavarez [facility] TRANSTHORACIC ECHO (TTE) COMPLETE W/ CONTRAST 2021-02-26 18:22:00 Gorge Tavarez [facility] LACTATE DEHYDROGENASE 2021-02-26 17:07:00 Dash Tavarez [facility] POCT GLUCOSE (AUTOMATED) 2021-02-26 16:37:00 Gorge Tavarez [facility] MRSA / MSSA SCREEN BY PCRJAYDE 2021-02-26 16:16:00 Fara Bettencourt [facility] XR CHEST 1 VW 2021-02-26 15:58:57 Jake Swanson [facility] IR THORACENTESIS WITH IMAGING 2021-02-26 15:45:04 [facility] AMYLASE BODY FLUID 2021-02-26 15:15:00 Corby yunior [facility] GLUCOSE BODY FLUID 2021-02-26 15:15:00 Corby yunior [facility] PH, BODY FLUID 2021-02-26 15:15:[address] [facility] T.PROTEIN BODY FLUID 2021-02-26 15:15:00 Kady Tavarez [facility] LDH TOTAL BODY FLUID 2021-02-26 15:15:00 Kady Tavarez [facility] BODY FLUID DIRECT COUNT 2021-02-26 15:15:00 Cruz Tavarez [facility] FUNGUS (ROUTINE) CULTURE 2021-02-26 15:15:00 Gorge Tavarez [facility] BODY FLUID CULTURE(AEROBIC/ANAEROBIC ) 2021-02-26 15:15:00 Corby yunior [facility] CYTO PLEURAL FLUID 2021-02-26 15:15:00 Chaim Ji [facility] AFB CULTURE 2021-02-26 14:51:00 Leigha Thorne [facility] MYCOBACTERIUM TUBERCULOSIS COMPLEX PCR 2021-02-26 14:51:00 Leigha Thorne [facility] POCT GLUCOSE (AUTOMATED) 2021-02-26 14:22:00 Gorge Tavarez [facility] PROTEIN TOTAL 2021-02-26 09:26:00 [facility] URIC ACID 2021-02-26 09:26:00 Gorge Tavarez [facility] AMYLASE 2021-02-26 09:26:00 Gorge Tavarez [facility] MAGNESIUM 2021-02-26 09:26:00 Chaim Ji [facility] FERRITIN SERUM 2021-02-26 09:26:00 Gorge Tavarez [facility] TROPONIN I 2021-02-26 09:26:00 Gorge Tavarez [facility] THYROID STIMULATING HORMONE 2021-02-26 09:26:00 Gorge Tavarez [facility] COMP. METABOLIC PANEL ([id number]) 2021-02-26 09:26:00 Corby yunior [facility] LIPID PANEL ([id number])(TOTAL CHOLESTEROL, TRIGLYCERIDES, HDL) 2021-02-26 09:26:00 Gorge Tavarez [facility] IRON PANEL 2021-02-26 09:26:00 Gorge Tavarez [facility] CBC WITH DIFF 2021-02-26 09:26:00 Chaim Ji [facility] N-TERMINAL PRO-BNP 2021-02-26 09:26:00 Gorge Tavarez [facility] HIV 1/2 AG-AB WITH REFLEX 2021-02-26 09:26:00 Chaim Ji [facility] AC ABG + LACTIC ACID 2021-02-26 08:24:00 Kady Tavarez [facility] XR CHEST 1 VW 2021-02-26 06:28:24 Gorge Tavarez [facility] ACUTE CARE VENOUS BLOOD GAS 2021-02-26 06:21:00 Gorge Tavarez [facility] HB ECG ROUTINE & RHYTHM STRIP 2021-02-26 05:47:31 Gorge Tavarez [facility] BLOOD CULTURE SCREEN 2021-02-26 05:01:00 Kady Tavarez [facility] LACTATE DEHYDROGENASE 2021-02-26 05:01:00 Dash Tavarez [facility] VITAMIN B12, LEVEL 2021-02-26 05:01:00 Gorge Tavarez [facility] C-REACTIVE PROTEIN 2021-02-26 05:01:00 Gorge Tavarez [facility] TROPONIN I 2021-02-26 05:01:00 [facility] 2021-02-26 05:01:00 Gorge Tavarez [facility] VITAMIN D, 25-OH 2021-02-26 05:01:[address] [facility] [address] PROCALCITONIN 2021-02-26 05:01:00 Gorge Tavarez [facility] LACTIC ACID WHOLE BLOOD 2021-02-26 04:59:00 Cruz Tavarez [facility] POCT GLUCOSE (AUTOMATED) 2021-02-26 04:32:00 Gorge Tavarez [facility] CT ABDOMEN PELVIS W CONTRAST 2021-02-25 18:36:20 Franklin Chatman [facility] CT THORAX W CONTRAST 2021-02-25 18:36:20 Yadiel Chatman [facility] PHOSPHORUS 2021-02-25 16:33:00 Chaim Ji [facility] LIPASE 2021-02-25 16:33:00 Franklin [facility] TROPONIN I 2021-02-25 16:33:00 Franklin Chatman [facility] COMP. METABOLIC PANEL ([id number]) 2021-02-25 16:33:00 Franklin Chatman [facility] SALICYLATE 2021-02-25 16:33:00 Franklin Chatman [facility] ETHANOL 2021-02-25 16:33:00 Franklin Chatman [facility] DIFF CONSULT INTERPRETATION 2021-02-25 16:33:00 Gorge Tavarez [facility] CBC WITH DIFF 2021-02-25 16:33:00 Franklin Chatman [facility] GLYCOSYLATED HEMOGLOBIN (A1C) 2021-02-25 16:33:00 Gorge Tavarez [facility] PROTHROMBIN TIME / INR 2021-02-25 16:33:00 Troy Chatman [facility] ACTIVATED PARTIAL THRMPLAS ASYA 2021-02-25 16:33:00 Franklin Chatman [facility] N-TERMINAL PRO-BNP 2021-02-25 16:33:00 Franklin Chatman [facility] AC PANEL 21 + LACTIC ACID 2021-02-25 16:32:00 Franklin Chatman [facility] COVID-19 (ID NOW RAPID TESTING) 2021-02-25 16:27:00 Franklin Chatman [facility] LAB ONLY COVID INTERPRETATION 2021-02-25 16:27:00 Franklin Chatman [facility] URINALYSIS 2021-02-25 16:26:00 Franklin [facility] URINE DRUG (IMMUNOASSAY) - COMPREHENSIVE DRUG SCREEN W/O REFLEX 2021-02-25 16:26:00 Franklin Chatman [facility] EKG-12 LEAD 2021-02-25 16:00:24 Franklin Chat[facility] AUTHORIZATION FOR RELEASE OF PHI 2020-11-13 05:01:00 Doctor Unassigned, Swift Bird [facility] CT ABDOMEN PELVIS W CONTRAST 2020-06-19 22:50:39 Nikolay Schroeder [facility] BASIC METABOLIC PANEL (NA, K, CL, CO2, GLUCOSE, BUN, CREATININE, CA) 2020-06-19 21:56:00 Nikolay Schrodeer [facility] CBC WITH DIFF 2020-06-19 21:56:00 Nikolay Schroeder [facility] URINALYSIS 2020-06-19 21:56:00 Nikolay Schroeder [facility] COVID-19 (ID NOW RAPID TESTING) 2020-06-19 21:56:00 Nikolay Schroeder [facility] NOTICE OF PRIVACY PRACTICES 2020-06-19 21:00:39 Doctor Unassigned, [place] [facility] CONSENT/REFUSAL FOR DIAGNOSIS AND TREATMENT 2020-06-19 21:00:23 Doctor Unassigned, [place] [facility] Encounters Start Date/Time End Date/Time Encounter Type Admission Type Attending [facility] Facility Care Department Encounter ID Source 2021-02-22 01:27:58 Emergency [facility] [id number] 2021-02-21 23:50:41 Emergency [facility] [id number] [facility] 2024-05-08 19:17:00 2024-05-08 20:53:00 Emergency X XOCHITL FREEMAN [facility] [id number] [facility] 2024-05-08 19:17:00 2024-05-08 20:53:00 Emergency Gladys Xochitl [facility] ([facility] [id number] [facility] 2022-11-23 13:15:00 2022-11-23 13:30:00 Office Visit Kelvin Landryel [facility] [id number] [facility] 2022-11-23 13:15:00 2022-11-23 13:15:00 Outpatient R ESSENCE LANDRY [facility] [id number] [facility] 2022-10-12 14:00:00 2022-10-12 14:15:00 [facility] [facility] 1.2.840.114 350.1.13.10 4.2.7.2.686 [id number] [facility] 2022-10-12 14:00:00 2022-10-12 14:00:00 Outpatient R ESSENCE LANDRY [facility] [place] [id number] [facility] 2022-09-24 10:13:00 2022-09-24 17:05:00 Outpatient R ESSENCE LANDRY [facility] [id number] [facility] 2022-09-24 10:13:00 2022-09-24 17:05:00 Hospital Encounter Essence Landry [facility] [place] 1.2.840.114 350.1.13.10 4.2.7.2.686 [id number] [facility] 2022-09-24 12:00:00 2022-09-24 15:06:00 Surgery Essence Landry [facility] 1.2.840.114 350.1.13.10 4.2.7.2.686 [id number] [facility] 2022-09-24 00:00:00 2022-09-24 00:00:00 Orders Only Doctor Unassigned, Swift Bird [facility] 1.2.840.114 350.1.13.10 4.2.7.2.686 [id number] [id number] [facility] 2022-08-16 00:00:00 2022-08-16 00:00:00 Telephone Essence Landry [facility] 1.2.840.114 350.1.13.10 4.2.7.2.686 [id number] [facility] 2022-08-16 00:00:00 2022-08-16 00:00:00 Orders Only Doctor Unassigned, Swift Bird [facility] 1.2.840.114 350.1.13.10 4.2.7.2.686 [id number] 009 [id number] [facility] 2022-08-12 09:00:00 2022-08-12 11:17:17 Outpatient R ESSENCE LANDRY [facility] [place] [id number] [facility] 2022-08-12 09:00:00 2022-08-12 11:17:17 Office Visit Essence Landry [facility] PROFESSIO [facility] 1.84.114 350.1.13.10 4.2.7.2.686 [id number] [facility] 2022-08-10 15:00:00 2022-08-10 15:00:00 Outpatient R ESSENCE LANDRY [facility] [place] [id number] [facility] 2022-08-10 00:00:00 2022-08-10 00:00:00 Orders Only Doctor Unassigned, Swift Bird [facility] 1..114 350.1.13.10 4.2.7.2.686 [id number] [id number] [facility] 2021-03-13 00:00:00 2021-03-13 00:00:00 Transition of Care Laney Roy 1.84.114 350.1.13.10 4.2.7.2.686 [id number] [facility] 2021-02-25 11:10:00 2021-03-12 13:40:00 Inpatient X CORBY YUNIOR [facility] [id number] [facility] 2021-02-25 11:10:00 2021-03-12 13:40:00 Hospital Encounter Franklin Chatman Yaman Lakhani, Adnan [facility] 1.84.114 350.1.13.10 4.2.7.2.686 [id number] [facility] 2020-11-13 00:00:00 2020-11-13 00:00:00 Orders Only Doctor Unassigned, Swift Bird [facility] 1.84.114 350.1.13.10 4.2.7.2.686 [id number] [id number] [facility] 2020-07-04 10:45:00 2020-07-04 10:45:00 Outpatient XOCHITL RANDALL [facility] [place] [id number] [facility] 2020-06-19 15:11:00 2020-06-19 19:23:00 Emergency Nikolay Schroeder [facility] 1.2.840.114 350.1.13.10 4.2.7.2.686 [id number] [facility] 2020-06-19 00:00:00 2020-06-19 00:00:00 Orders Only Doctor Unassigned, Swift Bird [facility] 1.2.840.114 350.1.13.10 4.2.7.2.686 [id number] [id number] [facility] 2020-06-11 16:42:00 2020-06-11 18:10:00 Emergency [facility] 1.2.840.114 350.1.13.10 4.2.7.2.686 [id number] [facility] 2017-10-13 09:10:00 2017-10-13 09:10:00 Outpatient [facility] [id number] [facility] 2017-10-13 08:45:00 2017-10-13 08:45:00 Outpatient [facility] [id number] [facility] 2017-07-13 09:45:00 2017-07-13 09:45:[address] [facility] [id number] [facility] Results Test Description Test Time Test Comments Results Result [facility] 21:13:50* Test Item Value Reference Range Interpretation Comme nts POCT GLU (test code = 3984050892) 295 mg/dL 70-110 H Lab Interpretation (test cod e = 10226-5) Abnormal [facility] GLUCOSE (AUTOMATED)2022-09-24 15:38:09* Test Item Value Reference Range Interpretation Comme nts POCT GLU (test code = 4452005330) 284 mg/dL 70-110 H Lab Interpretation (test cod e = 37249-8) Abnormal [facility] GLUCOSE (AUTOMATED)2022-09-24 15:38:09* Test Item Value Reference Range Interpretation Comme nts POCT GLU (test code = 5770240408) 284 mg/dL 70-110 H Lab Interpretation (test cod e = 80098-9) Abnormal [facility] GLUCOSE (AUTOMATED)2021-03-12 03:12:44* Test Item Value Reference Range Interpretation Comme nts POCT GLU (test code = 7216485463) 110 mg/dL 70-110 Lab Interpretation (test cod e = 92423-5) Normal [facility] GLUCOSE (AUTOMATED)2021-03-11 22:45:29* Test Item Value Reference Range Interpretation Comme nts POCT GLU (test code = 5259103522) 123 mg/dL 70-110 H Lab Interpretation (test cod e = 19765-8) Abnormal [facility] GLUCOSE (AUTOMATED)2021-03-11 17:54:49* Test Item Value Reference Range Interpretation Comme nts POCT GLU (test code = 6419982026) 139 mg/dL 70-110 H Lab Interpretation (test cod e = 74461-0) Abnormal [facility] GLUCOSE (AUTOMATED)2021-03-11 14:20:36* Test Item Value Reference Range Interpretation Comme nts POCT GLU (test code = 3369897006) 109 mg/dL 70-110 Lab Interpretation (test cod e = 18416-0) Normal [facility] WITH [id number] 11:18:50* Test Item Value Reference Range Interpretation Comme nts WBC (test code = 6690-2) See_Comment [Automated messa ge] The system which generated this result transmitted reference range: 4.20 - 10.70 10*3/?L. The reference range was not used to interpret this result as normal/abnormal. RBC (test code = 789-8) See_Comment L [Automated messa ge] The system which generated this result transmitted reference range: 4.26 - 5.52 10*6/?L. The reference range was not used to interpret this result as normal/abnormal. HGB (test code = 718-7) 10.4 g/dL 12.2-16.4 L HCT (test code = 4544-3) 32.3 % 38.4-49.3 L MCV (test code = 787-2) 89.2 fL 81.7-95.6 MCH (test code = 785-6) 28.7 pg 26.1-32.7 MCHC (test code = 786-4) 32.2 g/dL 31.2-35.0 RDW-SD (test code = 90175-3) 41.5 fL 38.5-51.6 RDW-CV (test code = 788-0) 12.6 % 12.1-15.4 PLT (test code = 777-3) See_Comment H [Automated messa ge] The system which generated this result transmitted reference range: 150 - 328 10*3/?L. The reference range was not used to interpret this result as normal/abnormal. MPV (test code = 05590-1) 9.8 fL 9.8-13.0 NRBC/100 WBC (test code = 8138210259) See_Comment [Automated [employer] ssage] The system which generated this result transmitted reference range: 0.0 - 10.0 /100 WBCs. The reference range was not used to interpret this result as normal/abnormal. NRBC x10^3 (test code = 4761823578) <0.01 See_Comment [Automated messa ge] The system which generated this result transmitted reference range: 10*3/?L. The reference range was not used to interpret this result as normal/abnormal. GRAN MAT (NEUT) % (test code = 770-8) 55.2 % IMM GRAN % (test code = 0159254710) 0.60 % LYMPH % (test code = 736-9) 31.4 % MONO % (test code = 5905-5) 9.3 % EOS % (test code = 713-8) 2.7 % BASO % (test code = 706-2) 0.8 % GRAN MAT x10^3(ANC) (test code = 1815185957) 3.44 10*3/uL 1.99-6.95 IMM GRAN x10^3 (test code = 7321744741) 0.04 10*3/uL 0.00-0.06 LYMPH x10^3 (test code = 731-0) 1.96 10*3/uL 1.09-3.23 MONO x10^3 (test code = 742-7) 0.58 10*3/uL 0.36-1.02 EOS x10^3 (test code = 711-2) 0.17 10*3/uL 0.06-0.53 BASO x10^3 (test code = 704-7) 0.05 10*3/uL 0.01-0.09 Lab Interpretation (test code = 70588-5) Abnormal [facility] GLUCOSE (AUTOMATED)2021-03-10 23:57:30* Test Item Value Reference Range Interpretation Comme nts POCT GLU (test code = 0042474035) 153 mg/dL 70-110 H Lab Interpretation (test cod e = 20470-6) Abnormal [facility] GLUCOSE (AUTOMATED)2021-03-10 17:53:36* Test Item Value Reference Range Interpretation Comme nts POCT GLU (test code = 3251080488) 139 mg/dL 70-110 H Lab Interpretation (test cod e = 11033-0) Abnormal [facility] GLUCOSE (AUTOMATED)2021-03-10 14:30:24* Test Item Value Reference Range Interpretation Comme nts POCT GLU (test code = 0495322383) 111 mg/dL 70-110 H Lab Interpretation (test cod e = 52269-2) Abnormal [facility] METABOLIC PANEL (NA, K, CL, CO2, GLUCOSE, BUN, CREATININE, CA)2021-03-10 13:38:22* Test Item Value Reference Range Interpretation Comme nts NA (test code = 8090391955) 134 mmol/L 135-145 L K (test code = 1393763258) 3.9 mmol/L 3.5-5.0 CL (test code = 8536872613) 103 mmol/L 98-108 CO2 TOTAL (test code = 1765289916) 28 mmol/L 23-31 AGAP (test code = 4445774874) 2-16 BUN (test code = 6060266297) 10 mg/dL 7-23 GLUCOSE (test code = 5979395127) 116 mg/dL 70-110 H CREATININE (test code = 4419217709) 0.54 mg/dL 0.60-1.25 L CALCIUM (test code = 2269660421) 8.9 mg/dL 8.6-10.6 eGFR (test code = 3433275053) mL/min/1.73m2 CATALINA (test code = CATALNIA) Association of Glomerular Filtration Rate (GFR) and Staging of Kidney Disease* + --+ --+ ------+| GFR (mL/min/1.73 m2) ?| With Kidney Damage ?| ?Without Kidney Damage+ --------+ --------+ +| ?>90 ?| ?Stage one ?| ? Normal ?+ ---+ ---+ -------+| ?60-89 ?| ?Stage two ?| ? Decreased GFR ? + --+ --+ ------+| ?30-59 ?| ?Stage three ?| ? Stage three ? + --+ --+ ------+| ?15-29 ?| ?Stage four ? | ? Stage four ?+ ---+ ---+ -------+| ?<15 (or dialysis) ? ?| ?Stage five ? | ? Stage five ?+ ---+ ---+ -------+ *Each stage assumes the associated GFR level has been in effect for at least three months. ?Stages 1 to 5, with or without kidney disease, indicate chronic kidney disease. Notes: Determination of stages one and two (with eGFR >59mL/min/1.73 m2) requires estimation of kidney damage for at least three months as defined by structural or functional abnormalities of the kidney, manifested by either:Pathological abnormalities or Markers of kidney damage (including abnormalities in the composition of the blood or urine or abnormalities in imaging tests). Lab Interpretation (test code = 16070-7) [facility] 13:38:22* Test Item Value Reference Range Interpretation Comme nts MAGNESIUM (test code = 9512736454) 2.2 mg/dL 1.7-2.4 Lab Interpretation (test cod e = 15084-7) [facility] [id number] 12:21:36* Test Item Value Reference Range Interpretation Comme nts WBC (test code = 6690-2) See_Comment [Automated messa ge] The system which generated this result transmitted reference range: 4.20 - 10.70 10*3/?L. The reference range was not used to interpret this result as normal/abnormal. RBC (test code = 789-8) See_Comment L [Automated messa ge] The system which generated this result transmitted reference range: 4.26 - 5.52 10*6/?L. The reference range was not used to interpret this result as normal/abnormal. HGB (test code = 718-7) 10.2 g/dL 12.2-16.4 L HCT (test code = 4544-3) 31.8 % 38.4-49.3 L MCV (test code = 787-2) 90.1 fL 81.7-95.6 MCH (test code = 785-6) 28.9 pg 26.1-32.7 MCHC (test code = 786-4) 32.1 g/dL 31.2-35.0 RDW-SD (test code = 27614-4) 42.3 fL 38.5-51.6 RDW-CV (test code = 788-0) 12.9 % 12.1-15.4 PLT (test code = 777-3) See_Comment H [Automated messa ge] The system which generated this result transmitted reference range: 150 - 328 10*3/?L. The reference range was not used to interpret this result as normal/abnormal. MPV (test code = 56941-2) 9.9 fL 9.8-13.0 NRBC/100 WBC (test code = 4978502509) See_Comment [Automated [employer] ssage] The system which generated this result transmitted reference range: 0.0 - 10.0 /100 WBCs. The reference range was not used to interpret this result as normal/abnormal. NRBC x10^3 (test code = 5799997630) <0.01 See_Comment [Automated messa ge] The system which generated this result transmitted reference range: 10*3/?L. The reference range was not used to interpret this result as normal/abnormal. GRAN MAT (NEUT) % (test code = 770-8) 64.2 % IMM GRAN % (test code = 8457048531) 1.00 % LYMPH % (test code = 736-9) 23.0 % MONO % (test code = 5905-5) 9.8 % EOS % (test code = 713-8) 1.5 % BASO % (test code = 706-2) 0.5 % GRAN MAT x10^3(ANC) (test code = 8959322889) 6.50 10*3/uL 1.99-6.95 IMM GRAN x10^3 (test code = 5766169554) 0.10 10*3/uL 0.00-0.06 H LYMPH x10^3 (test code = 731-0) 2.33 10*3/uL 1.09-3.23 MONO x10^3 (test code = 742-7) 0.99 10*3/uL 0.36-1.02 EOS x10^3 (test code = 711-2) 0.15 10*3/uL 0.06-0.53 BASO x10^3 (test code = 704-7) 0.05 10*3/uL 0.01-0.09 Lab Interpretation (test code = 18999-0) Abnormal [facility] GLUCOSE (AUTOMATED)2021-03-09 22:46:56* Test Item Value Reference Range Interpretation Comme nts POCT GLU (test code = 5021214009) 119 mg/dL 70-110 H Lab Interpretation (test cod e = 11923-6) Abnormal [facility] GLUCOSE (AUTOMATED)2021-03-09 17:16:26* Test Item Value Reference Range Interpretation Comme nts POCT GLU (test code = 7113099112) 126 mg/dL 70-110 H Lab Interpretation (test cod e = 74709-2) Abnormal [facility] GLUCOSE (AUTOMATED)2021-03-09 13:50:01* Test Item Value Reference Range Interpretation Comme nts POCT GLU (test code = 4150244610) 110 mg/dL 70-110 Lab Interpretation (test cod e = 16877-3) Normal [facility] GLUCOSE (AUTOMATED)2021-03-09 03:32:40* Test Item Value Reference Range Interpretation Comme nts POCT GLU (test code = 5826011364) 145 mg/dL 70-110 H Notified Provide r Lab Interpretation (test code = 90984-9) Abnormal [facility] GLUCOSE (AUTOMATED)2021-03-08 22:44:07* Test Item Value Reference Range Interpretation Comme nts POCT GLU (test code = 7435752231) 135 mg/dL 70-110 H Lab Interpretation (test cod e = 80356-4) Abnormal [facility] GLUCOSE (AUTOMATED)2021-03-08 17:39:54* Test Item Value Reference Range Interpretation Comme nts POCT GLU (test code = 7681655895) 126 mg/dL 70-110 H Lab Interpretation (test cod e = 28860-2) Abnormal [facility] GLUCOSE (AUTOMATED)2021-03-08 13:26:14* Test Item Value Reference Range Interpretation Comme [facility] POCT GLU (test code = 8146967049) 122 mg/dL 70-110 H Lab Interpretation (test cod e = 74409-5) Abnormal [facility] METABOLIC PANEL (NA, K, CL, CO2, GLUCOSE, BUN, CREATININE, CA)2021-03-08 12:52:59* Test Item Value Reference Range Interpretation Comme [facility] NA (test code = 2895549414) 133 mmol/L 135-145 L K (test code = 8818127672) 4.5 mmol/L 3.5-5.0 CL (test code = 7590818403) 101 mmol/L 98-108 CO2 TOTAL (test code = 3623741570) 24 mmol/L 23-31 AGAP (test code = 4985571168) 2-16 BUN (test code = 5162437810) 12 mg/dL 7-23 GLUCOSE (test code = 7632823602) 136 mg/dL 70-110 H CREATININE (test code = 8402961562) 0.65 mg/dL 0.60-1.25 CALCIUM (test code = 0921241871) 8.9 mg/dL 8.6-10.6 eGFR (test code = 0233850760) mL/min/1.73m2 CATALINA (test code = CATALINA) Association of Glomerular Filtration Rate (GFR) and Staging of Kidney Disease* + --+ --+ ------+| GFR (mL/min/1.73 m2) ?| With Kidney Damage ?| ?Without Kidney Damage+ --------+ --------+ +| ?>90 ?| ?Stage one ?| ? Normal ?+ ---+ ---+ -------+| ?60-89 ?| ?Stage two ?| ? Decreased GFR ? + --+ --+ ------+| ?30-59 ?| ?Stage three ?| ? Stage three ? + --+ --+ ------+| ?15-29 ?| ?Stage four ? | ? Stage four ?+ ---+ ---+ -------+| ?<15 (or dialysis) ? ?| ?Stage five ? | ? Stage five ?+ ---+ ---+ -------+ *Each stage assumes the associated GFR level has been in effect for at least three months. ?Stages 1 to 5, with or without kidney disease, indicate chronic kidney disease. Notes: Determination of stages one and two (with eGFR >59mL/min/1.73 m2) requires estimation of kidney damage for at least three months as defined by structural or functional abnormalities of the kidney, manifested by either:Pathological abnormalities or Markers of kidney damage (including abnormalities in the composition of the blood or urine or abnormalities in imaging tests). Lab Interpretation (test code = 38565-6) [facility] 12:52:59* Test Item Value Reference Range Interpretation Comme nts MAGNESIUM (test code = 1855128482) 2.2 mg/dL 1.7-2.4 Lab Interpretation (test cod e = 39623-5) Normal [facility] WITH [id number] 12:21:57* Test Item Value Reference Range Interpretation Comme nts WBC (test code = 6690-2) See_Comment H [Automated messa ge] The system which generated this result transmitted reference range: 4.20 - 10.70 10*3/?L. The reference range was not used to interpret this result as normal/abnormal. RBC (test code = 789-8) See_Comment L [Automated messa ge] The system which generated this result transmitted reference range: 4.26 - 5.52 10*6/?L. The reference range was not used to interpret this result as normal/abnormal. HGB (test code = 718-7) 11.3 g/dL 12.2-16.4 L HCT (test code = 4544-3) 34.9 % 38.4-49.3 L MCV (test code = 787-2) 89.0 fL 81.7-95.6 MCH (test code = 785-6) 28.8 pg 26.1-32.7 MCHC (test code = 786-4) 32.4 g/dL 31.2-35.0 RDW-SD (test code = 49458-5) 41.7 fL 38.5-51.6 RDW-CV (test code = 788-0) 12.9 % 12.1-15.4 PLT (test code = 777-3) See_Comment H [Automated messa ge] The system which generated this result transmitted reference range: 150 - 328 10*3/?L. The reference range was not used to interpret this result as normal/abnormal. MPV (test code = 77217-8) 10.0 fL 9.8-13.0 NRBC/100 WBC (test code = 8628746713) See_Comment [Automated [employer] ssage] The system which generated this result transmitted reference range: 0.0 - 10.0 /100 WBCs. The reference range was not used to interpret this result as normal/abnormal. NRBC x10^3 (test code = 9282577093) <0.01 See_Comment [Automated messa ge] The system which generated this result transmitted reference range: 10*3/?L. The reference range was not used to interpret this result as normal/abnormal. GRAN MAT (NEUT) % (test code = 770-8) 70.1 % IMM GRAN % (test code = 8729306436) 1.50 % LYMPH % (test code = 736-9) 18.8 % MONO % (test code = 5905-5) 7.8 % EOS % (test code = 713-8) 1.4 % BASO % (test code = 706-2) 0.4 % GRAN MAT x10^3(ANC) (test code = 6955374200) 8.11 10*3/uL 1.99-6.95 H IMM GRAN x10^3 (test code = 0695340904) 0.17 10*3/uL 0.00-0.06 H LYMPH x10^3 (test code = 731-0) 2.18 10*3/uL 1.09-3.23 MONO x10^3 (test code = 742-7) 0.90 10*3/uL 0.36-1.02 EOS x10^3 (test code = 711-2) 0.16 10*3/uL 0.06-0.53 BASO x10^3 (test code = 704-7) 0.05 10*3/uL 0.01-0.09 Lab Interpretation (test code = 93122-6) Abnormal [facility] GLUCOSE (AUTOMATED)2021-03-08 02:37:36* Test Item Value Reference Range Interpretation Comme nts POCT GLU (test code = 9652594396) 141 mg/dL 70-110 H Notified Provide r Lab Interpretation (test code = 86842-4) Abnormal [facility] GLUCOSE (AUTOMATED)2021-03-07 23:10:44* Test Item Value Reference Range Interpretation Comme nts POCT GLU (test code = 7950436146) 108 mg/dL 70-110 Lab Interpretation (test cod e = 18565-4) Normal [facility] GLUCOSE (AUTOMATED)2021-03-07 17:15:58* Test Item Value Reference Range Interpretation Comme nts POCT GLU (test code = 8463832572) 136 mg/dL 70-110 H Lab Interpretation (test cod e = 08968-7) Abnormal [facility] GLUCOSE (AUTOMATED)2021-03-07 14:40:51* Test Item Value Reference Range Interpretation Comme nts POCT GLU (test code = 0267967993) 127 mg/dL 70-110 H Lab Interpretation (test cod e = 71087-4) Abnormal [facility] GLUCOSE (AUTOMATED)2021-03-06 22:26:48* Test Item Value Reference Range Interpretation Comme nts POCT GLU (test code = 3916195424) 136 mg/dL 70-110 H Lab Interpretation (test cod e = 86939-8) Abnormal [facility] GLUCOSE (AUTOMATED)2021-03-06 18:19:30* Test Item Value Reference Range Interpretation Comme nts POCT GLU (test code = 8727800277) 115 mg/dL 70-110 H Lab Interpretation (test cod e = 93602-3) Abnormal [facility] GLUCOSE (AUTOMATED)2021-03-06 15:23:47* Test Item Value Reference Range Interpretation Comme nts POCT GLU (test code = 5912349265) 114 mg/dL 70-110 H Lab Interpretation (test cod e = 61669-2) Abnormal [facility] GLUCOSE (AUTOMATED)2021-03-06 06:27:55* Test Item Value Reference Range Interpretation Comme nts POCT GLU (test code = 9856247738) 136 mg/dL 70-110 H Lab Interpretation (test cod e = 01905-4) Abnormal [facility] GLUCOSE (AUTOMATED)2021-03-05 22:19:25* Test Item Value Reference Range Interpretation Comme nts POCT GLU (test code = 0196622724) 98 mg/dL 70-110 Lab Interpretation (test cod e = 08735-3) Normal [facility] GLUCOSE (AUTOMATED)2021-03-05 18:16:27* Test Item Value Reference Range Interpretation Comme nts POCT GLU (test code = 3600168459) 151 mg/dL 70-110 H Lab Interpretation (test cod e = 38679-2) Abnormal [facility] GLUCOSE (AUTOMATED)2021-03-05 14:28:55* Test Item Value Reference Range Interpretation Comme nts POCT GLU (test code = 7209469540) 123 mg/dL 70-110 H Lab Interpretation (test cod e = 52462-0) Abnormal [facility] WITH [id number] 12:41:13* Test Item Value Reference Range Interpretation Comme nts WBC (test code = 6690-2) See_Comment H [Automated messa ge] The system which generated this result transmitted reference range: 4.20 - 10.70 10*3/?L. The reference range was not used to interpret this result as normal/abnormal. RBC (test code = 789-8) See_Comment L [Automated messa ge] The system which generated this result transmitted reference range: 4.26 - 5.52 10*6/?L. The reference range was not used to interpret this result as normal/abnormal. HGB (test code = 718-7) 11.1 g/dL 12.2-16.4 L HCT (test code = 4544-3) 35.0 % 38.4-49.3 L MCV (test code = 787-2) 89.1 fL 81.7-95.6 MCH (test code = 785-6) 28.2 pg 26.1-32.7 MCHC (test code = 786-4) 31.7 g/dL 31.2-35.0 RDW-SD (test code = 85141-5) 44.4 fL 38.5-51.6 RDW-CV (test code = 788-0) 13.5 % 12.1-15.4 PLT (test code = 777-3) See_Comment H [Automated messa ge] The system which generated this result transmitted reference range: 150 - 328 10*3/?L. The reference range was not used to interpret this result as normal/abnormal. MPV (test code = 16043-7) 10.4 fL 9.8-13.0 NRBC/100 WBC (test code = 5292301443) See_Comment [Automated [employer] ssage] The system which generated this result transmitted reference range: 0.0 - 10.0 /100 WBCs. The reference range was not used to interpret this result as normal/abnormal. NRBC x10^3 (test code = 4499681100) <0.01 See_Comment [Automated messa ge] The system which generated this result transmitted reference range: 10*3/?L. The reference range was not used to interpret this result as normal/abnormal. GRAN MAT (NEUT) % (test code = 770-8) 70.2 % IMM GRAN % (test code = 9790334674) 3.40 % LYMPH % (test code = 736-9) 16.8 % MONO % (test code = 5905-5) 7.6 % EOS % (test code = 713-8) 1.3 % BASO % (test code = 706-2) 0.7 % GRAN MAT x10^3(ANC) (test code = 7520246891) 8.95 10*3/uL 1.99-6.95 H IMM GRAN x10^3 (test code = 9973970055) 0.43 10*3/uL 0.00-0.06 H LYMPH x10^3 (test code = 731-0) 2.14 10*3/uL 1.09-3.23 MONO x10^3 (test code = 742-7) 0.97 10*3/uL 0.36-1.02 EOS x10^3 (test code = 711-2) 0.17 10*3/uL 0.06-0.53 BASO x10^3 (test code = 704-7) 0.09 10*3/uL 0.01-0.09 Lab Interpretation (test code = 59520-6) Abnormal [facility] METABOLIC PANEL (NA, K, CL, CO2, GLUCOSE, BUN, CREATININE, CA)2021-03-05 11:23:26* Test Item Value Reference Range Interpretation Comme nts NA (test code = 0039827973) 135 mmol/L 135-145 K (test code = 2944976223) 4.2 mmol/L 3.5-5.0 CL (test code = 0774928996) 101 mmol/L 98-108 CO2 TOTAL (test code = 2702376256) 27 mmol/L 23-31 AGAP (test code = 5266780109) 2-16 BUN (test code = 6823610957) 9 mg/dL 7-23 GLUCOSE (test code = [id number]) 135 mg/dL 70-110 H CREATININE (test code = 3566408271) 0.65 mg/dL 0.60-1.25 CALCIUM (test code = 6957096441) 8.8 mg/dL 8.6-10.6 eGFR (test code = 1613695580) mL/min/1.73m2 CATALINA (test code = CATALINA) Association of Glomerular Filtration Rate (GFR) and Staging of Kidney Disease* + --+ --+ ------+| GFR (mL/min/1.73 m2) ?| With Kidney Damage ?| ?Without Kidney Damage+ --------+ --------+ +| ?>90 ?| ?Stage one ?| ? Normal ?+ ---+ ---+ -------+| ?60-89 ?| ?Stage two ?| ? Decreased GFR ? + --+ --+ ------+| ?30-59 ?| ?Stage three ?| ? Stage three ? + --+ --+ ------+| ?15-29 ?| ?Stage four ? | ? Stage four ?+ ---+ ---+ -------+| ?<15 (or dialysis) ? ?| ?Stage five ? | ? Stage five ?+ ---+ ---+ -------+ *Each stage assumes the associated GFR level has been in effect for at least three months. ?Stages 1 to 5, with or without kidney disease, indicate chronic kidney disease. Notes: Determination of stages one and two (with eGFR >59mL/min/1.73 m2) requires estimation of kidney damage for at least three months as defined by structural or functional abnormalities of the kidney, manifested by either:Pathological abnormalities or Markers of kidney damage (including abnormalities in the composition of the blood or urine or abnormalities in imaging tests). Lab Interpretation (test code = 60491-1) [facility]26* Test Item Value Reference Range Interpretation Comme nts MAGNESIUM (test code = 3222427506) 2.5 mg/dL 1.7-2.4 H Lab Interpretation (test cod e = 07635-1) [id number] 01:18:05* Test Item Value Reference Range Interpretation Comme nts LDH (test code = 8958541360) 753 U/L 300-600 H Lab Interpretation (test cod e = 98298-1) Abnormal [facility] GLUCOSE (AUTOMATED)2021-03-04 22:09:48* Test Item Value Reference Range Interpretation Comme nts POCT GLU (test code = 4558870915) 135 mg/dL 70-110 H Lab Interpretation (test cod e = 59074-1) Abnormal [facility] GLUCOSE (AUTOMATED)2021-03-04 17:24:54* Test Item Value Reference Range Interpretation Comme nts POCT GLU (test code = 1517323570) 160 mg/dL 70-110 H Lab Interpretation (test cod e = 50609-1) [facility] 17:19:53* Test Item Value Reference Range Interpretation Comme nts MAGNESIUM (test code = 6422091772) 2.4 mg/dL 1.7-2.4 Lab Interpretation (test cod e = 01877-3) Normal [facility] METABOLIC PANEL (NA, K, CL, CO2, GLUCOSE, BUN, CREATININE, CA)2021-03-04 17:19:52* Test Item Value Reference Range Interpretation Comme nts NA (test code = 3055335553) 136 mmol/L 135-145 K (test code = 8889428360) 4.6 mmol/L 3.5-5.0 CL (test code = 9004096138) 101 mmol/L 98-108 CO2 TOTAL (test code = 4769427419) 27 mmol/L 23-31 AGAP (test code = 7048569622) 2-16 BUN (test code = 0112347385) 8 mg/dL 7-23 GLUCOSE (test code = 2091170895) 125 mg/dL 70-110 H CREATININE (test code = 7835105113) 0.62 mg/dL 0.60-1.25 CALCIUM (test code = 0918577669) 8.8 mg/dL 8.6-10.6 eGFR (test code = 7713756581) mL/min/1.73m2 CATALINA (test code = CATALINA) Association of Glomerular Filtration Rate (GFR) and Staging of Kidney Disease* + --+ --+ ------+| GFR (mL/min/1.73 m2) ?| With Kidney Damage ?| ?Without Kidney Damage+ --------+ --------+ +| ?>90 ?| ?Stage one ?| ? Normal ?+ ---+ ---+ -------+| ?60-89 ?| ?Stage two ?| ? Decreased GFR ? + --+ --+ ------+| ?30-59 ?| ?Stage three ?| ? Stage three ? + --+ --+ ------+| ?15-29 ?| ?Stage four ? | ? Stage four ?+ ---+ ---+ -------+| ?<15 (or dialysis) ? ?| ?Stage five ? | ? Stage five ?+ ---+ ---+ -------+ *Each stage assumes the associated GFR level has been in effect for at least three months. ?Stages 1 to 5, with or without kidney disease, indicate chronic kidney disease. Notes: Determination of stages one and two (with eGFR >59mL/min/1.73 m2) requires estimation of kidney damage for at least three months as defined by structural or functional abnormalities of the kidney, manifested by either:Pathological abnormalities or Markers of kidney damage (including abnormalities in the composition of the blood or urine or abnormalities in imaging tests). Lab Interpretation (test code = 51930-8) Abnormal [facility] WITH [id number] 15:00:40* Test Item Value Reference Range Interpretation Comme nts WBC (test code = 6690-2) See_Comment H [Automated message] The system which generated this result transmitted reference range: 4.20 - 10.70 10*3/?L. The reference range was not used to interpret this result as normal/abnormal. RBC (test code = 789-8) See_Comment L [Automated message] The system which generated this result transmitted reference range: 4.26 - 5.52 10*6/?L. The reference range was not used to interpret this result as normal/abnormal. HGB (test code = 718-7) 11.3 g/dL 12.2-16.4 L HCT (test code = 4544-3) 35.8 % 38.4-49.3 L MCV (test code = 787-2) 89.9 fL 81.7-95.6 MCH (test code = 785-6) 28.4 pg 26.1-32.7 MCHC (test code = 786-4) 31.6 g/dL 31.2-35.0 RDW-SD (test code = 39884-5) 45.4 fL 38.5-51.6 RDW-CV (test code = 788-0) 13.7 % 12.1-15.4 PLT (test code = 777-3) See_Comment H [Automated message] The system which generated this result transmitted reference range: 150 - 328 10*3/?L. The reference range was not used to interpret this result as normal/abnormal. MPV (test code = 60490-0) 10.5 fL 9.8-13.0 NRBC/100 WBC (test code = 8031332830) See_Comment [Automated message] The system which generated this result transmitted reference range: 0.0 - 10.0 /100 WBCs. The reference range was not used to interpret this result as normal/abnormal. NRBC x10^3 (test code = 5267670243) <0.01 See_Comment [Automated message] The system which generated this result transmitted reference range: 10*3/?L. The reference range was not used to interpret this result as normal/abnormal. GRAN MAT (NEUT) % (test code = 770-8) 69.9 % IMM GRAN % (test code = 1190590283) 5.20 % LYMPH % (test code = 736-9) 15.4 % MONO % (test code = 5905-5) 8.0 % EOS % (test code = 713-8) 1.0 % BASO % (test code = 706-2) 0.5 % GRAN MAT x10^3(ANC) (test code = 0131274976) 10.31 10*3/uL 1.99-6.95 H IMM GRAN x10^3 (test code = 6621006965) 0.77 10*3/uL 0.00-0.06 H LYMPH x10^3 (test code = 731-0) 2.28 10*3/uL 1.09-3.23 MONO x10^3 (test code = 742-7) 1.18 10*3/uL 0.36-1.02 H EOS x10^3 (test code = 711-2) 0.15 10*3/uL 0.06-0.53 BASO x10^3 (test code = 704-7) 0.08 10*3/uL 0.01-0.09 ROULEAUX (test code = 7797-4) Present See_Comment A [Automated message] The system which generated this result transmitted reference range: (none). The reference range was not used to interpret this result as normal/abnormal. BANDS (test code = 3388546337) Increased A REACT LYMPHS (test code = 1610947991) Rare TOXIC CHANGES (test code = 803-7) Present A GIANT PLATELETS (test code = 5908-9) Present See_Comment A [Automated message] The system which generated this result transmitted reference range: (none). The reference range was not used to interpret this result as normal/abnormal. Lab Interpretation (test code = 03260-2) Abnormal [facility] GLUCOSE (AUTOMATED)2021-03-04 13:51:33* Test Item Value Reference Range Interpretation Comme nts POCT GLU (test code = 1174628617) 141 mg/dL 70-110 H Lab Interpretation (test cod e = 19363-3) [facility] 18:21:58* Test Item Value Reference Range Interpretation Comme nts POCT GLU (test code = 6060301964) 190 mg/dL 70-110 H Lab Interpretation (test cod e = 28702-5) Abnormal [facility] WITH [id number] 14:30:04* Test Item Value Reference Range Interpretation Comme nts WBC (test code = 6690-2) See_Comment H [Automated messa ge] The system which generated this result transmitted reference range: 4.20 - 10.70 10*3/?L. The reference range was not used to interpret this result as normal/abnormal. RBC (test code = 789-8) See_Comment L [Automated messa ge] The system which generated this result transmitted reference range: 4.26 - 5.52 10*6/?L. The reference range was not used to interpret this result as normal/abnormal. HGB (test code = 718-7) 11.6 g/dL 12.2-16.4 L HCT (test code = 4544-3) 35.0 % 38.4-49.3 L MCV (test code = 787-2) 88.6 fL 81.7-95.6 MCH (test code = 785-6) 29.4 pg 26.1-32.7 MCHC (test code = 786-4) 33.1 g/dL 31.2-35.0 RDW-SD (test code = 30972-5) 44.2 fL 38.5-51.6 RDW-CV (test code = 788-0) 13.5 % 12.1-15.4 PLT (test code = 777-3) See_Comment H [Automated messa ge] The system which generated this result transmitted reference range: 150 - 328 10*3/?L. The reference range was not used to interpret this result as normal/abnormal. MPV (test code = 92584-8) 10.2 fL 9.8-13.0 NRBC/100 WBC (test code = 6173664221) See_Comment [Automated me ssage] The system which generated this result transmitted reference range: 0.0 - 10.0 /100 WBCs. The reference range was not used to interpret this result as normal/abnormal. NRBC x10^3 (test code = 0625622711) <0.01 See_Comment [Automated messa ge] The system which generated this result transmitted reference range: 10*3/?L. The reference range was not used to interpret this result as normal/abnormal. GRAN MAT (NEUT) % (test code = 770-8) 70.9 % IMM GRAN % (test code = 7823707350) 4.70 % LYMPH % (test code = 736-9) 13.5 % MONO % (test code = 5905-5) 9.2 % EOS % (test code = 713-8) 1.1 % BASO % (test code = 706-2) 0.6 % GRAN MAT x10^3(ANC) (test code = 4004659365) 9.90 10*3/uL 1.99-6.95 H IMM GRAN x10^3 (test code = 4070378807) 0.65 10*3/uL 0.00-0.06 H LYMPH x10^3 (test code = 731-0) 1.88 10*3/uL 1.09-3.23 MONO x10^3 (test code = 742-7) 1.28 10*3/uL 0.36-1.02 H EOS x10^3 (test code = 711-2) 0.15 10*3/uL 0.06-0.53 BASO x10^3 (test code = 704-7) 0.08 10*3/uL 0.01-0.09 BANDS (test code = 4673648999) Increased A TOXIC CHANGES (test code = 803-7) Present A Lab Interpretation (test code = 93385-0) [facility] 13:45:39* Test Item Value Reference Range Interpretation Comme nts POCT GLU (test code = 9828570301) 144 mg/dL 70-110 H Lab Interpretation (test cod e = 28313-5) [facility] 13:32:13* Test Item Value Reference Range Interpretation Comme nts MAGNESIUM (test code = 5777622901) 2.3 mg/dL 1.7-2.4 Lab Interpretation (test cod e = 82108-4) Normal [facility] METABOLIC PANEL (NA, K, CL, CO2, GLUCOSE, BUN, CREATININE, CA)2021-03-03 13:32:02* Test Item Value Reference Range Interpretation Comme nts NA (test code = 2926917533) 136 mmol/L 135-145 K (test code = 4577243754) 4.6 mmol/L 3.5-5.0 CL (test code = 8024607478) 104 mmol/L 98-108 CO2 TOTAL (test code = 4899460635) 24 mmol/L 23-31 AGAP (test code = 6196257182) 2-16 BUN (test code = 8527865696) 6 mg/dL 7-23 L GLUCOSE (test code = 4328323999) 134 mg/dL 70-110 H CREATININE (test code = 0618208229) 0.56 mg/dL 0.60-1.25 L CALCIUM (test code = 3703058604) 8.5 mg/dL 8.6-10.6 L eGFR (test code = 5159920271) mL/min/1.73m2 CATALINA (test code = CATALINA) Association of Glomerular Filtration Rate (GFR) and Staging of Kidney Disease* + --+ --+ ------+| GFR (mL/min/1.73 m2) ?| With Kidney Damage ?| ?Without Kidney Damage+ --------+ --------+ +| ?>90 ?| ?Stage one ?| ? Normal ?+ ---+ ---+ -------+| ?60-89 ?| ?Stage two ?| ? Decreased GFR ? + --+ --+ ------+| ?30-59 ?| ?Stage three ?| ? Stage three ? + --+ --+ ------+| ?15-29 ?| ?Stage four ? | ? Stage four ?+ ---+ ---+ -------+| ?<15 (or dialysis) ? ?| ?Stage five ? | ? Stage five ?+ ---+ ---+ -------+ *Each stage assumes the associated GFR level has been in effect for at least three months. ?Stages 1 to 5, with or without kidney disease, indicate chronic kidney disease. Notes: Determination of stages one and two (with eGFR >59mL/min/1.73 m2) requires estimation of kidney damage for at least three months as defined by structural or functional abnormalities of the kidney, manifested by either:Pathological abnormalities or Markers of kidney damage (including abnormalities in the composition of the blood or urine or abnormalities in imaging tests). Lab Interpretation (test code = 19441-8) [facility] 13:31:50* Test Item Value Reference Range Interpretation Comme nts PHOSPHORUS (test code = 3609500252) 3.9 mg/dL 2.5-5.0 Lab Interpretation (test cod e = 26712-9) [facility] [id number] 06:01:53* Test Item Value Reference Range Interpretation Comme nts Blood Culture-Aerobic (test code = 13404-5) No organisms isolated No growth Previous preliminary verified result was Culture In Progress on 02/26/2021 at 0401 CDTPrevious preliminary verified result was No growth at 24 hours on 02/27/2021 at 0101 CDTPrevious preliminary verified result was No growth at 48 hours on 02/28/2021 at 0101 CDTPrevious preliminary verified result was No growth at 72 hours on 03/01/2021 at 0101 CDT Blood Culture-Anaerobic (test code = 03865-8) No organisms isolated No growth Previous preliminary verified result was Culture In Progress on 02/26/2021 at 0401 CDTPrevious preliminary verified result was No growth at 24 hours on 02/27/2021 at 0101 CDTPrevious preliminary verified result was No growth at 48 hours on 02/28/2021 at 0101 CDTPrevious preliminary verified result was No growth at 72 hours on 03/01/2021 at 0101 CDT Lab Interpretation (test code = 99269-2) [facility] [id number] 06:01:53* Test Item Value Reference Range Interpretation Comme nts Blood Culture-Aerobic (test code = 67511-6) No organisms isolated No growth Previous preliminary verified result was Culture In Progress on 02/26/2021 at 0401 CDTPrevious preliminary verified result was No growth at 24 hours on 02/27/2021 at 0101 CDTPrevious preliminary verified result was No growth at 48 hours on 02/28/2021 at 0101 CDTPrevious preliminary verified result was No growth at 72 hours on 03/01/2021 at 0101 CDT Blood Culture-Anaerobic (test code = 53017-6) No organisms isolated No growth Previous preliminary verified result was Culture In Progress on 02/26/2021 at 0401 CDTPrevious preliminary verified result was No growth at 24 hours on 02/27/2021 at 0101 CDTPrevious preliminary verified result was No growth at 48 hours on 02/28/2021 at 0101 CDTPrevious preliminary verified result was No growth at 72 hours on 03/01/2021 at 0101 CDT Lab Interpretation (test code = 19030-9) Normal [facility] GLUCOSE (AUTOMATED)2021-03-03 02:26:32* Test Item Value Reference Range Interpretation Comme nts POCT GLU (test code = 1723324333) 155 mg/dL 70-110 H Notified Provide r Lab Interpretation (test code = 97827-3) Abnormal [facility] GLUCOSE (AUTOMATED)2021-03-02 22:38:32* Test Item Value Reference Range Interpretation Comme nts POCT GLU (test code = 3620646363) 122 mg/dL 70-110 H Lab Interpretation (test cod e = 65766-2) Abnormal [facility] GLUCOSE (AUTOMATED)2021-03-02 17:46:25* Test Item Value Reference Range Interpretation Comme nts POCT GLU (test code = 1013772968) 125 mg/dL 70-110 H Lab Interpretation (test cod e = 17227-8) [facility] [id number] 16:40:15* Test Item Value Reference Range Interpretation Comme nts SPUTUM CULTURE (test code = 622-1) 2+ Respiratory jeff: Commensal upper respiratory microorganisms only. Gram stain (test code = 664-3) Occasional (Rare) Mononuclear cells CATALINA (test code = CATALINA) Bacterial pathogens associated with lower respiratory infections were not identified, which include Pseudomonas aeruginosa and Staphylococcus aureus (MRSA or MSSA). [facility] WITH ANNW2621-11-90 15:16:38* Test Item Value Reference Range Interpretation Comme nts WBC (test code = 6690-2) See_Comment H [Automated messa ge] The system which generated this result transmitted reference range: 4.20 - 10.70 10*3/?L. The reference range was not used to interpret this result as normal/abnormal. RBC (test code = 789-8) See_Comment L [Automated messa ge] The system which generated this result transmitted reference range: 4.26 - 5.52 10*6/?L. The reference range was not used to interpret this result as normal/abnormal. HGB (test code = 718-7) 10.9 g/dL 12.2-16.4 L HCT (test code = 4544-3) 33.1 % 38.4-49.3 L MCV (test code = 787-2) 89.9 fL 81.7-95.6 MCH (test code = 785-6) 29.6 pg 26.1-32.7 MCHC (test code = 786-4) 32.9 g/dL 31.2-35.0 RDW-SD (test code = 60779-6) 44.9 fL 38.5-51.6 RDW-CV (test code = 788-0) 13.5 % 12.1-15.4 PLT (test code = 777-3) See_Comment [Automated messa ge] The system which generated this result transmitted reference range: 150 - 328 10*3/?L. The reference range was not used to interpret this result as normal/abnormal. MPV (test code = 01168-5) 10.9 fL 9.8-13.0 NRBC/100 WBC (test code = 1702417682) See_Comment [Automated [employer] ssage] The system which generated this result transmitted reference range: 0.0 - 10.0 /100 WBCs. The reference range was not used to interpret this result as normal/abnormal. NRBC x10^3 (test code = 5492042256) <0.01 See_Comment [Automated messa ge] The system which generated this result transmitted reference range: 10*3/?L. The reference range was not used to interpret this result as normal/abnormal. GRAN MAT (NEUT) % (test code = 770-8) 73.0 % IMM GRAN % (test code = 4440674468) 2.80 % LYMPH % (test code = 736-9) 12.6 % MONO % (test code = 5905-5) 9.4 % EOS % (test code = 713-8) 1.7 % BASO % (test code = 706-2) 0.5 % GRAN MAT x10^3(ANC) (test code = 7961868804) 9.28 10*3/uL 1.99-6.95 H IMM GRAN x10^3 (test code = 8857303165) 0.36 10*3/uL 0.00-0.06 H LYMPH x10^3 (test code = 731-0) 1.60 10*3/uL 1.09-3.23 MONO x10^3 (test code = 742-7) 1.20 10*3/uL 0.36-1.02 H EOS x10^3 (test code = 711-2) 0.22 10*3/uL 0.06-0.53 BASO x10^3 (test code = 704-7) 0.07 10*3/uL 0.01-0.09 ROULEAUX (test code = 7797-4) Present See_Comment A [Automated Ant[employer]isa ge] The system which generated this result transmitted reference range: (none). The reference range was not used to interpret this result as normal/abnormal. BANDS (test code = 4729678050) Increased A DOHLE BODIES (test code = 7792-5) Present A REACT LYMPHS (test code = 0725759699) Rare TOXIC CHANGES (test code = 803-7) Present A Lab Interpretation (test code = 67586-3) Abnormal [facility] GLUCOSE (AUTOMATED)2021-03-02 13:57:34* Test Item Value Reference Range Interpretation Comme nts POCT GLU (test code = 4071304094) 136 mg/dL 70-110 H Lab Interpretation (test cod e = 53259-7) Abnormal [facility] GLUCOSE (AUTOMATED)2021-03-02 13:38:29* Test Item Value Reference Range Interpretation Comme nts POCT GLU (test code = 6657843972) 138 mg/dL 70-110 H Lab Interpretation (test cod e = 60501-4) Abnormal [facility]. METABOLIC PANEL (04134)2021-03-02 12:01:14* Test Item Value Reference Range Interpretation Comme nts NA (test code = 4290473038) 139 mmol/L 135-145 K (test code = 5785820013) 3.2 mmol/L 3.5-5.0 L CL (test code = 5904098736) 113 mmol/L 98-108 H CO2 TOTAL (test code = 8879175621) 21 mmol/L 23-31 L AGAP (test code = 2018191911) 2-16 BUN (test code = 0112699937) 4 mg/dL 7-23 L GLUCOSE (test code = 1507564716) 102 mg/dL 70-110 CREATININE (test code = 8010454957) 0.43 mg/dL 0.60-1.25 L TOTAL BILI (test code = 0543498024) 0.6 mg/dL 0.1-1.1 CALCIUM (test code = 6803927150) 6.2 mg/dL 8.6-10.6 L T PROTEIN (test code = 8714566626) 4.4 g/dL 6.3-8.2 L ALBUMIN (test code = 0687994764) 2.0 g/dL 3.5-5.0 L ALK PHOS (test code = 2609203448) 131 U/L 34-122 H ALTv (test code = 1742-6) 23 U/L 5-50 AST(SGOT) (test code = 3035014985) 29 U/L 13-40 eGFR (test code = 6943090718) mL/min/1.73m2 CATALINA (test code = CATALINA) Association of Glomerular Filtration Rate (GFR) and Staging of Kidney Disease* + --+ --+ ------+| GFR (mL/min/1.73 m2) ?| With Kidney Damage ?| ?Without Kidney Damage+ --------+ --------+ +| ?>90 ?| ?Stage one ?| ? Normal ?+ ---+ ---+ -------+| ?60-89 ?| ?Stage two ?| ? Decreased GFR ? + --+ --+ ------+| ?30-59 ?| ?Stage three ?| ? Stage three ? + --+ --+ ------+| ?15-29 ?| ?Stage four ? | ? Stage four ?+ ---+ ---+ -------+| ?<15 (or dialysis) ? ?| ?Stage five ? | ? Stage five ?+ ---+ ---+ -------+ *Each stage assumes the associated GFR level has been in effect for at least three months. ?Stages 1 to 5, with or without kidney disease, indicate chronic kidney disease. Notes: Determination of stages one and two (with eGFR >59mL/min/1.73 m2) requires estimation of kidney damage for at least three months as defined by structural or functional abnormalities of the kidney, manifested by either:Pathological abnormalities or Markers of kidney damage (including abnormalities in the composition of the blood or urine or abnormalities in imaging tests). Lab Interpretation (test code = 62656-4) Abnormal [facility] GLUCOSE (AUTOMATED)2021-03-02 04:00:42* Test Item Value Reference Range Interpretation Comme nts POCT GLU (test code = 7722618947) 186 mg/dL 70-110 H Lab Interpretation (test cod e = 23576-6) Abnormal [facility] GLUCOSE (AUTOMATED)2021-03-01 23:00:33* Test Item Value Reference Range Interpretation Comme nts POCT GLU (test code = 7883181795) 130 mg/dL 70-110 H Lab Interpretation (test cod e = 91726-5) Abnormal [facility] GLUCOSE (AUTOMATED)2021-03-01 18:02:15* Test Item Value Reference Range Interpretation Comme nts POCT GLU (test code = 6500361370) 166 mg/dL 70-110 H Lab Interpretation (test cod e = 44660-0) [facility] 11:26:40* Test Item Value Reference Range Interpretation Comme nts MAGNESIUM (test code = 3072663499) 2.4 mg/dL 1.7-2.4 Lab Interpretation (test cod e = 97670-5) Normal [facility] METABOLIC PANEL (NA, K, CL, CO2, GLUCOSE, BUN, CREATININE, CA)2021-03-01 11:26:19* Test Item Value Reference Range Interpretation Comme nts NA (test code = 8148653889) 134 mmol/L 135-145 L K (test code = 9900215251) 4.0 mmol/L 3.5-5.0 CL (test code = 6492561461) 99 mmol/L 98-108 CO2 TOTAL (test code = 5683581676) 26 mmol/L 23-31 AGAP (test code = 7390854863) 2-16 BUN (test code = 4136388118) 7 mg/dL 7-23 GLUCOSE (test code = 2590816086) 161 mg/dL 70-110 H CREATININE (test code = 9354188161) 0.69 mg/dL 0.60-1.25 CALCIUM (test code = 9041246366) 8.4 mg/dL 8.6-10.6 L eGFR (test code = 5753479442) mL/min/1.73m2 CATALINA (test code = CATALINA) Association of Glomerular Filtration Rate (GFR) and Staging of Kidney Disease* + --+ --+ ------+| GFR (mL/min/1.73 m2) ?| With Kidney Damage ?| ?Without Kidney Damage+ --------+ --------+ +| ?>90 ?| ?Stage one ?| ? Normal ?+ ---+ ---+ -------+| ?60-89 ?| ?Stage two ?| ? Decreased GFR ? + --+ --+ ------+| ?30-59 ?| ?Stage three ?| ? Stage three ? + --+ --+ ------+| ?15-29 ?| ?Stage four ? | ? Stage four ?+ ---+ ---+ -------+| ?<15 (or dialysis) ? ?| ?Stage five ? | ? Stage five ?+ ---+ ---+ -------+ *Each stage assumes the associated GFR level has been in effect for at least three months. ?Stages 1 to 5, with or without kidney disease, indicate chronic kidney disease. Notes: Determination of stages one and two (with eGFR >59mL/min/1.73 m2) requires estimation of kidney damage for at least three months as defined by structural or functional abnormalities of the kidney, manifested by either:Pathological abnormalities or Markers of kidney damage (including abnormalities in the composition of the blood or urine or abnormalities in imaging tests). Lab Interpretation (test code = 91637-2) [facility] 11:26:19* Test Item Value Reference Range Interpretation Comme nts PHOSPHORUS (test code = 3505016225) 3.2 mg/dL 2.5-5.0 Lab Interpretation (test cod e = 43922-4) [facility] [id number] 11:16:45* Test Item Value Reference Range Interpretation Comme nts WBC (test code = 6690-2) See_Comment H [Automated message] The system which generated this result transmitted reference range: 4.20 - 10.70 10*3/?L. The reference range was not used to interpret this result as normal/abnormal. RBC (test code = 789-8) See_Comment L [Automated message] The system which generated this result transmitted reference range: 4.26 - 5.52 10*6/?L. The reference range was not used to interpret this result as normal/abnormal. HGB (test code = 718-7) 11.0 g/dL 12.2-16.4 L HCT (test code = 4544-3) 33.4 % 38.4-49.3 L MCV (test code = 787-2) 87.9 fL 81.7-95.6 MCH (test code = 785-6) 28.9 pg 26.1-32.7 MCHC (test code = 786-4) 32.9 g/dL 31.2-35.0 RDW-SD (test code = 18880-7) 42.1 fL 38.5-51.6 RDW-CV (test code = 788-0) 13.2 % 12.1-15.4 PLT (test code = 777-3) See_Comment H [Automated message] The system which generated this result transmitted reference range: 150 - 328 10*3/?L. The reference range was not used to interpret this result as normal/abnormal. MPV (test code = 65043-8) 10.3 fL 9.8-13.0 NRBC/100 WBC (test code = 2429703893) See_Comment [Automated message] The system which generated this result transmitted reference range: 0.0 - 10.0 /100 WBCs. The reference range was not used to interpret this result as normal/abnormal. NRBC x10^3 (test code = 7432883083) <0.01 See_Comment [Automated message] The system which generated this result transmitted reference range: 10*3/?L. The reference range was not used to interpret this result as normal/abnormal. GRAN MAT (NEUT) % (test code = 770-8) 78.5 % IMM GRAN % (test code = 3002029353) 1.60 % LYMPH % (test code = 736-9) 8.7 % MONO % (test code = 5905-5) 9.8 % EOS % (test code = 713-8) 1.0 % BASO % (test code = 706-2) 0.4 % GRAN MAT x10^3(ANC) (test code = 0666763139) 12.22 10*3/uL 1.99-6.95 H IMM GRAN x10^3 (test code = 4739410109) 0.25 10*3/uL 0.00-0.06 H LYMPH x10^3 (test code = 731-0) 1.36 10*3/uL 1.09-3.23 MONO x10^3 (test code = 742-7) 1.53 10*3/uL 0.36-1.02 H EOS x10^3 (test code = 711-2) 0.15 10*3/uL 0.06-0.53 BASO x10^3 (test code = 704-7) 0.07 10*3/uL 0.01-0.09 BANDS (test code = 1044282382) Increased A TOXIC CHANGES (test code = 803-7) Present A GIANT PLATELETS (test code = 5908-9) Present See_Comment A [Automated message] The system which generated this result transmitted reference range: (none). The reference range was not used to interpret this result as normal/abnormal. Lab Interpretation (test code = 91047-1) Abnormal [facility] GLUCOSE (AUTOMATED)2021-03-01 01:33:17* Test Item Value Reference Range Interpretation Comme nts POCT GLU (test code = 2937799558) 173 mg/dL 70-110 H Lab Interpretation (test cod e = 16568-0) Abnormal [facility] GLUCOSE (AUTOMATED)2021-02-28 22:14:15* Test Item Value Reference Range Interpretation Comme nts POCT GLU (test code = 1216250577) 136 mg/dL 70-110 H Lab Interpretation (test cod e = 41547-8) Abnormal [facility] GLUCOSE (AUTOMATED)2021-02-28 22:10:43* Test Item Value Reference Range Interpretation Comme nts POCT GLU (test code = 3018835026) 158 mg/dL 70-110 H Lab Interpretation (test cod e = 60965-0) Abnormal [facility] GLUCOSE (AUTOMATED)2021-02-28 16:49:37* Test Item Value Reference Range Interpretation Comme nts POCT GLU (test code = 9808061191) 161 mg/dL 70-110 H Lab Interpretation (test cod e = 84452-4) Abnormal [facility] WITH [id number] 13:12:42* Test Item Value Reference Range Interpretation Comme nts WBC (test code = 6690-2) See_Comment H [Automated message] The system which generated this result transmitted reference range: 4.20 - 10.70 10*3/?L. The reference range was not used to interpret this result as normal/abnormal. RBC (test code = 789-8) See_Comment L [Automated message] The system which generated this result transmitted reference range: 4.26 - 5.52 10*6/?L. The reference range was not used to interpret this result as normal/abnormal. HGB (test code = 718-7) 12.1 g/dL 12.2-16.4 L HCT (test code = 4544-3) 37.3 % 38.4-49.3 L MCV (test code = 787-2) 89.2 fL 81.7-95.6 MCH (test code = 785-6) 28.9 pg 26.1-32.7 MCHC (test code = 786-4) 32.4 g/dL 31.2-35.0 RDW-SD (test code = 57074-7) 42.9 fL 38.5-51.6 RDW-CV (test code = 788-0) 13.0 % 12.1-15.4 PLT (test code = 777-3) See_Comment [Automated message] The system which generated this result transmitted reference range: 150 - 328 10*3/?L. The reference range was not used to interpret this result as normal/abnormal. MPV (test code = 94916-0) 10.1 fL 9.8-13.0 NRBC/100 WBC (test code = 1875837462) See_Comment [Automated message] The system which generated this result transmitted reference range: 0.0 - 10.0 /100 WBCs. The reference range was not used to interpret this result as normal/abnormal. NRBC x10^3 (test code = 2771095746) <0.01 See_Comment [Automated message] The system which generated this result transmitted reference range: 10*3/?L. The reference range was not used to interpret this result as normal/abnormal. GRAN MAT (NEUT) % (test code = 770-8) 77.6 % IMM GRAN % (test code = 5141498600) 1.40 % LYMPH % (test code = 736-9) 9.7 % MONO % (test code = 5905-5) 10.1 % EOS % (test code = 713-8) 0.7 % BASO % (test code = 706-2) 0.5 % GRAN MAT x10^3(ANC) (test code = 0682314027) 11.63 10*3/uL 1.99-6.95 H IMM GRAN x10^3 (test code = 9467411735) 0.21 10*3/uL 0.00-0.06 H LYMPH x10^3 (test code = 731-0) 1.46 10*3/uL 1.09-3.23 MONO x10^3 (test code = 742-7) 1.51 10*3/uL 0.36-1.02 H EOS x10^3 (test code = 711-2) 0.11 10*3/uL 0.06-0.53 BASO x10^3 (test code = 704-7) 0.07 10*3/uL 0.01-0.09 ROULEAUX (test code = 7797-4) Present See_Comment A [Automated message] The system which generated this result transmitted reference range: (none). The reference range was not used to interpret this result as normal/abnormal. BANDS (test code = 2128599316) Increased A TOXIC CHANGES (test code = 803-7) Present A GIANT PLATELETS (test code = 5908-9) Present See_Comment A [Automated message] The system which generated this result transmitted reference range: (none). The reference range was not used to interpret this result as normal/abnormal. Lab Interpretation (test code = 51306-1) Abnormal [facility]. METABOLIC PANEL (40704)2021-02-28 12:13:05* Test Item Value Reference Range Interpretation Comme nts NA (test code = 3423770640) 133 mmol/L 135-145 L K (test code = 9537742174) 4.2 mmol/L 3.5-5.0 CL (test code = 4692295828) 100 mmol/L 98-108 CO2 TOTAL (test code = 1067282239) 26 mmol/L 23-31 AGAP (test code = 0379736292) 2-16 BUN (test code = 1129507086) 8 mg/dL 7-23 GLUCOSE (test code = 8857144028) 143 mg/dL 70-110 H CREATININE (test code = 9720342776) 0.70 mg/dL 0.60-1.25 TOTAL BILI (test code = 2472471041) 1.4 mg/dL 0.1-1.1 H CALCIUM (test code = 0892617928) 8.5 mg/dL 8.6-10.6 L T PROTEIN (test code = 9952730836) 5.7 g/dL 6.3-8.2 L ALBUMIN (test code = 0005935917) 3.0 g/dL 3.5-5.0 L ALK PHOS (test code = 3251809756) 111 U/L 34-122 ALTv (test code = 1742-6) 16 U/L 5-50 AST(SGOT) (test code = 3677019311) 20 U/L 13-40 eGFR (test code = 7283153184) mL/min/1.73m2 CATALINA (test code = CATALINA) Association of Glomerular Filtration Rate (GFR) and Staging of Kidney Disease* + --+ --+ ------+| GFR (mL/min/1.73 m2) ?| With Kidney Damage ?| ?Without Kidney Damage+ --------+ --------+ +| ?>90 ?| ?Stage one ?| ? Normal ?+ ---+ ---+ -------+| ?60-89 ?| ?Stage two ?| ? Decreased GFR ? + --+ --+ ------+| ?30-59 ?| ?Stage three ?| ? Stage three ? + --+ --+ ------+| ?15-29 ?| ?Stage four ? | ? Stage four ?+ ---+ ---+ -------+| ?<15 (or dialysis) ? ?| ?Stage five ? | ? Stage five ?+ ---+ ---+ -------+ *Each stage assumes the associated GFR level has been in effect for at least three months. ?Stages 1 to 5, with or without kidney disease, indicate chronic kidney disease. Notes: Determination of stages one and two (with eGFR >59mL/min/1.73 m2) requires estimation of kidney damage for at least three months as defined by structural or functional abnormalities of the kidney, manifested by either:Pathological abnormalities or Markers of kidney damage (including abnormalities in the composition of the blood or urine or abnormalities in imaging tests). Lab Interpretation (test code = 94562-5) Abnormal [facility] GLUCOSE (AUTOMATED)2021-02-28 02:31:48* Test Item Value Reference Range Interpretation Comme nts POCT GLU (test code = 1673899521) 206 mg/dL 70-110 H Lab Interpretation (test cod e = 88935-3) [facility] 2021-02-28 00:49:25* Test Item Value Reference Range Interpretation Comme nts Mycobacterium tuberculosis D NA (test code = 68849-1) Negative Negative Lab Interpretation (test cod e = 60887-2) Normal [facility] GLUCOSE (AUTOMATED)2021-02-27 22:30:13* Test Item Value Reference Range Interpretation Comme nts POCT GLU (test code = 4743391965) 160 mg/dL 70-110 H Lab Interpretation (test cod e = 51623-2) [facility] 2021-02-27 18:36:53* Test Item Value Reference Range Interpretation Comme nts Mycobacterium tuberculosis DNA (test code = 96428-8) Negative Negative CATALINA (test code = CATALINA) MTB PCR testing delayed due to inadequate specimen. Lab Interpretation (test code = 54275-6) Normal [facility] GLUCOSE (AUTOMATED)2021-02-27 16:47:54* Test Item Value Reference Range Interpretation Comme nts POCT GLU (test code = 8835405719) 185 mg/dL 70-110 H Lab Interpretation (test cod e = 32162-4) Abnormal [facility] GLUCOSE (AUTOMATED)2021-02-27 13:10:59* Test Item Value Reference Range Interpretation Comme nts POCT GLU (test code = 3967832768) 140 mg/dL 70-110 H Lab Interpretation (test cod e = 78688-5) Abnormal [facility] GLUCOSE (AUTOMATED)2021-02-27 11:09:43* Test Item Value Reference Range Interpretation Comme nts POCT GLU (test code = 1794987878) 120 mg/dL 70-110 H Lab Interpretation (test cod e = 19180-0) [facility] - Draw within 30 minutes prior to 3RD dose.2021-02-27 08:29:58* Test Item Value Reference Range Interpretation Comme nts VANCO TROUGH (test code = 1931880408) <5.0 10.0-20.0 L CATALINA (test code = CATALINA) Toxic Range: ?>20 ug/mL 15-20 ug/mL is recommended for severe infection or when Vancomycin TYLER is greater than or equal to 2. Lab Interpretation (test code = 49959-1) Abnormal [facility]. METABOLIC PANEL (71222)2021-02-27 08:17:18* Test Item Value Reference Range Interpretation Comme nts NA (test code = 0952417774) 132 mmol/L 135-145 L K (test code = 3847923917) 4.2 mmol/L 3.5-5.0 CL (test code = 5868916766) 99 mmol/L 98-108 CO2 TOTAL (test code = 8180125981) 24 mmol/L 23-31 AGAP (test code = 4273434564) 2-16 BUN (test code = 2831345470) 10 mg/dL 7-23 GLUCOSE (test code = 6045064806) 137 mg/dL 70-110 H CREATININE (test code = 1331863991) 0.81 mg/dL 0.60-1.25 TOTAL BILI (test code = 6586222938) 1.5 mg/dL 0.1-1.1 H CALCIUM (test code = 0342108081) 8.6 mg/dL 8.6-10.6 T PROTEIN (test code = 6378222761) 6.1 g/dL 6.3-8.2 L ALBUMIN (test code = 4015412749) 3.3 g/dL 3.5-5.0 L ALK PHOS (test code = 4812092079) 94 U/L 34-122 ALTv (test code = 1742-6) 19 U/L 5-50 AST(SGOT) (test code = 0576644521) 16 U/L 13-40 eGFR (test code = 6277783445) mL/min/1.73m2 CATALINA (test code = CATALINA) Association of Glomerular Filtration Rate (GFR) and Staging of Kidney Disease* + --+ --+ ------+| GFR (mL/min/1.73 m2) ?| With Kidney Damage ?| ?Without Kidney Damage+ --------+ --------+ +| ?>90 ?| ?Stage one ?| ? Normal ?+ ---+ ---+ -------+| ?60-89 ?| ?Stage two ?| ? Decreased GFR ? + --+ --+ ------+| ?30-59 ?| ?Stage three ?| ? Stage three ? + --+ --+ ------+| ?15-29 ?| ?Stage four ? | ? Stage four ?+ ---+ ---+ -------+| ?<15 (or dialysis) ? ?| ?Stage five ? | ? Stage five ?+ ---+ ---+ -------+ *Each stage assumes the associated GFR level has been in effect for at least three months. ?Stages 1 to 5, with or without kidney disease, indicate chronic kidney disease. Notes: Determination of stages one and two (with eGFR >59mL/min/1.73 m2) requires estimation of kidney damage for at least three months as defined by structural or functional abnormalities of the kidney, manifested by either:Pathological abnormalities or Markers of kidney damage (including abnormalities in the composition of the blood or urine or abnormalities in imaging tests). Lab Interpretation (test code = 49078-6) [facility] 08:17:18* Test Item Value Reference Range Interpretation Comme nts MAGNESIUM (test code = 5705968112) 2.1 mg/dL 1.7-2.4 Lab Interpretation (test cod e = 29766-7) Normal [facility]2021[facility] 08:16:57* Test Item Value Reference Range Interpretation Comme nts PHOSPHORUS (test code = 1834339520) 2.6 mg/dL 2.5-5.0 Lab Interpretation (test cod e = 39978-5) Normal [facility] CenterCBC WITH [id number] 07:51:35* Test Item Value Reference Range Interpretation Comme nts WBC (test code = 6690-2) See_Comment H [Automated message] The system which generated this result transmitted reference range: 4.20 - 10.70 10*3/?L. The reference range was not used to interpret this result as normal/abnormal. RBC (test code = 789-8) See_Comment [Automated message] The system which generated this result transmitted reference range: 4.26 - 5.52 10*6/?L. The reference range was not used to interpret this result as normal/abnormal. HGB (test code = 718-7) 13.1 g/dL 12.2-16.4 HCT (test code = 4544-3) 40.5 % 38.4-49.3 MCV (test code = 787-2) 90.0 fL 81.7-95.6 MCH (test code = 785-6) 29.1 pg 26.1-32.7 MCHC (test code = 786-4) 32.3 g/dL 31.2-35.0 RDW-SD (test code = 62672-1) 42.4 fL 38.5-51.6 RDW-CV (test code = 788-0) 12.8 % 12.1-15.4 PLT (test code = 777-3) See_Comment [Automated message] The system which generated this result transmitted reference range: 150 - 328 10*3/?L. The reference range was not used to interpret this result as normal/abnormal. MPV (test code = 55080-0) 10.2 fL 9.8-13.0 NRBC/100 WBC (test code = 8345781590) See_Comment [Automated message] The system which generated this result transmitted reference range: 0.0 - 10.0 /100 WBCs. The reference range was not used to interpret this result as normal/abnormal. NRBC x10^3 (test code = 4661117956) <0.01 See_Comment [Automated message] The system which generated this result transmitted reference range: 10*3/?L. The reference range was not used to interpret this result as normal/abnormal. GRAN MAT (NEUT) % (test code = 770-8) 78.1 % IMM GRAN % (test code = 4547452731) 1.70 % LYMPH % (test code = 736-9) 10.0 % MONO % (test code = 5905-5) 9.5 % EOS % (test code = 713-8) 0.4 % BASO % (test code = 706-2) 0.3 % GRAN MAT x10^3(ANC) (test code = 5737032930) 11.88 10*3/uL 1.99-6.95 H IMM GRAN x10^3 (test code = 8161466814) 0.26 10*3/uL 0.00-0.06 H LYMPH x10^3 (test code = 731-0) 1.52 10*3/uL 1.09-3.23 MONO x10^3 (test code = 742-7) 1.45 10*3/uL 0.36-1.02 H EOS x10^3 (test code = 711-2) 0.06 10*3/uL 0.06-0.53 BASO x10^3 (test code = 704-7) 0.04 10*3/uL 0.01-0.09 Lab Interpretation (test code = 03664-9) Abnormal [facility] GLUCOSE (AUTOMATED)2021-02-27 05:06:59* Test Item Value Reference Range Interpretation Comme nts POCT GLU (test code = 3474262910) 131 mg/dL 70-110 H Notified Provide r Lab Interpretation (test code = 01354-7) Abnormal [facility] GLUCOSE (AUTOMATED)2021-02-27 00:23:21* Test Item Value Reference Range Interpretation Comme [facility] POCT GLU (test code = 9819437539) 146 mg/dL 70-110 H Notified Provide r Lab Interpretation (test code = 79778-0) [facility]normal [facility] CenterVITAMIN B12, [id number] 21:40:03* Test Item Value Reference Range Interpretation Comme [facility] VIT B12 (test code = 4710086520) 226 pg/mL 240-930 L CATALINA (test code = CATALINA) Biotin has been reported to cause a positive bias, interpret results relative to patient's use of biotin. Lab Interpretation (test code = 22230-5) Abnormal [facility] CenterHIV 1/2 AG-AB WITH [id number] 20:46:32* Test Item Value Reference Range Interpretation Comme [facility] HIV Semi-quantitative (test code = 62978-9) Negative Negative CATALINA (test code = CATALINA) Non-reactive for HIV-1 antigen and HIV-1/HIV-2 antibodies. ?No laboratory evidence of HIV infection. ?Repeat in 2-4 weeks if acute HIV infection is suspected. [facility] FLUID MANUAL [id number] 19:54:40* Test Item Value Reference Range Interpretation Comme [facility] BF SEGS% (test code = 82926-2) 85 % BF LYMPHS% (test code = 24094-4) 3 % BF MACROPHAGE% (test code = 49132-5) 10 % BF MESOS% (test code = 68894-8) 1 % BF EOS% (test code = 71237-2) 1 % BF #CELLS CNTD (test code = 8570847591) cells/u L [facility] CenterDIFF CONSULT [id number] 19:18:36 LEUKOCYTOSIS WITH ABSOLUTE NEUTROPHILIA, MONOCYTOSIS, AND EOSINOPENIA. NO INCREASE IN BLASTS IDENTIFIED. ERYTHROCYTES ARE UNREMARKABLE. MILD THROMBOCYTOSIS.[facility] CenterLACTATE [id number] 18:57:19* Test Item Value Reference Range Interpretation Comme [facility] LDH (test code = 2306388995) 469 U/L 300-600 Lab Interpretation (test cod e = 48938-0) Normal [facility] FLUID DIRECT [id number] 18:17:32* Test Item Value Reference Range Interpretation Comme nts BF COLOR (test code = 2826794304) Slightly Bloody BF WBC Count (test code = 1277494950) See_Comment [Automated [employer]] The system which generated this result transmitted reference range: /?L. The reference range was not used to interpret this result as normal/abnormal. BF RBC Count (test code = 9077358134) See_Comment [Automated [employer]] The system which generated this result transmitted reference range: /?L. The reference range was not used to interpret this result as normal/abnormal. CATALINA (test code = CATALINA) The reference range and other method performance specifications have not been established for this body fluid. ?The test results must be integrated into the clinical context for interpretation. [facility] CenterC-REACTIVE [id number] 18:04:06* Test Item Value Reference Range Interpretation Comme nts CRP (test code = 9868670772) 39.3 mg/dL <0.8 H Lab Interpretation (test cod e = 66791-1) [facility]normal [facility] CenterPROCALCITONIN2021-11-04 17:18:51* Test Item Value Reference Range Interpretation Comme nts Procalcitonin (test code = 8713305071) 4.49 ng/mL <0.07 H CATALINA (test code = CATALINA) INTERPRETATION OF PROCALCITONIN RESULTS IN ADULTS >= 18 YEARS OF AGE Initiation and discontinuation of antibiotics on patients with suspected or confirmed Lower Respiratory Tract Infection in Adults >= 18 years of age. + +-------- --------+ + -----+|Procalcitonin |Interpretation ?|Antibiotic ? ? |Considerations ? |ng/mL ? | ?|recommendation | ? + +-------- --------+ + -----+| <0.1 ? | Bacterial ? ? ?| Strongly ? ? ?| ? | ?| infection very | discouraged ? | Overruling: ? | ?| unlikely ? ? ? | ? | ? Clinically unstable ? ? ? + +-------- --------+ + ? High risk for adverse ? ? | <0.25 ?| Bacterial ? ? ?| Discouraged ? | ? outcome ? | ?| infection ? ? ?| ? | ? SEE IMPORTANT NOTE ?| ?| unlikely ? ? ? | ? | ? + +-------- --------+ + -----+| >=0.25 ? ? ? | Bacterial ? ? ?| Encouraged ? ?| ? | ?| infection ? ? ?| ? | ? | ?| likely ? | ? | Consider treatment failure ?+ +------- ---------+ -+ if levels does not decrease | >0.5 ? | Bacterial ? ? ?| Strongly ? ? ?| appropriately ? | ?| infection very | encouraged ? ?| ? | ?| likely ? | ? | ? + +-------- --------+ + -----+ Discontinuation of antibiotics in high-acuity patients with suspected or confirmed sepsis in Adults >= 18 years of age. + +-------- --------+ + -----+|Procalcitonin |Interpretation ?|Antibiotic ? ? |Considerations ? |ng/mL ? | ?|recommendation | ? + +-------- --------+ + -----+| <0.25 ?| Bacterial ? ? ?| Strongly ? ? ?| ? | ?| infection very | discouraged ? | Overruling: ? | ?| unlikely ? ? ? | ? | ? Clinically unstable ? ? ? + +-------- --------+ + ? High risk for adverse ? ? | <0.5 or drop | Bacterial ? ? ?| Discouraged ? | ? outcome ? | >80% from ? ?| infection ? ? ?| ? | ? SEE IMPORTANT NOTE ?| highest PCT ?| unlikely ? ? ? | ? | ? | level ?| ?| ? | ? + +-------- --------+ + -----+| >=0.5 ?| Bacterial ? ? ?| Encouraged ? ?| ? | ?| infection ? ? ?| ? | ? | ?| likely ? | ? | Consider treatment failure ?+ +------- ---------+ -+ if levels does not decrease | >1.0 ? | Bacterial ? ? ?| Strongly ? ? ?| appropriately ? | ?| infection very | encouraged ? ?| ? | ?| likely ? | ? | ? + +-------- --------+ + -----+ Percentage of drop of Procalcitonin calculation for Discontinuation of antibiotics in high-acuity patients with suspected or confirmed sepsis in Adults >= 18 years of age. ? Procalcitonin highest{}-Procalcitonin current{}Delta Procalcitonin = x100% ? Procalcitonin current {} IMPORTANT NOTE: Procalcitonin may be elevated without bacterial infection by physiologic stress related to trauma, crespo, chronic dialysis, metastatic cancer, surgery in the past seven days, malaria, some fungal infections, and some forms of vasculitis. The interpretation algorithm may not apply to patients with immunosuppression (equivalent of >10 mg of prednisone daily), HIV with CD4 cell count < 350 cells/mm3, active malignancy on systemic chemotherapy, solid organ transplant or hematopoietic stem cell transplantation, or hospital acquired pneumonia. Additionally, some clinical trials of procalcitonin have excluded patients with shock requiring vasopressor use, acute respiratory failure requiring mechanical ventilation, or those with known lung abscess/empyema. For further information please refer to:[email or web address] Lab Interpretation (test code = 33453-1) [facility]2021-[facility]-26 16:56:13* Test Item Value Reference Range Interpretation Comme [facility] POCT GLU (test code = 9129775650) 156 mg/dL 70-110 H Lab Interpretation (test cod e = 12409-8) Abnormal [facility] CenterVITAMIN D, [id number] 16:35:49* Test Item Value Reference Range Interpretation Comme [facility] VIT D 25OH (test code = 65516-0) <13 25-80 L CATALINA (test code = CATALINA) Deficiency: <20 ng/mLInsufficiency: 20-24 ng/mLOptimal: 25-80 ng/mL Lab Interpretation (test code = 36718-3) Abnormal [facility] CenterFERRITIN [id number] 16:15:43* Test Item Value Reference Range Interpretation Comme nts FERRITIN (test code = 9849014228) 257.0 ng/mL 18.0-464.0 CATALINA (test code = CATALINA) Biotin has been reported to cause a negative bias, interpret results relative to patient's use of biotin. Lab Interpretation (test code = 45346-8) Normal [facility] CenterTHYROID STIMULATING [id number] 16:11:43 * Test Item Value Reference Range Interpretation Comme nts TSH (test code = 4810709091) See_Comment H [Automated Anturisa [employer]] The system which generated this result transmitted reference range: 0.45 - 4.70 mIU/L. The reference range was not used to interpret this result as normal/abnormal. Lab Interpretation (test code = 98787-5) Abnormal [facility] CenterIRON [id number] 15:46:18* Test Item Value Reference Range Interpretation Comme nts IRON (test code = 1044222977) 31 ug/dL 50-160 L TIBC (test code = 2176529538) 239 ug/dL 250-410 L % FE SAT (test code = 1479255188) 13 % 20-50 L Lab Interpretation (test cod e = 39359-7) Abnormal [facility] CenterLIPID PANEL (71204)(TOTAL CHOLESTEROL, TRIGLYCERIDES, HDL)2021-02-26 15:37:39* Test Item Value Reference Range Interpretation Comme nts CHOL (test code = 7131328684) 124 mg/dL 120-200 HDL (test code = 6961276366) 25 mg/dL >40 L HDLC RATIO (test code = 3359265571) See_Comment [Automated Anturisa ge] The system which generated this result transmitted reference range: <=5.0. The reference range was not used to interpret this result as normal/abnormal. TRIG (test code = 3126694334) 144 mg/dL 30-170 LDL CHOL (test code = 01972-1) 70 mg/dL See_Comment [Automated Anturisa ge] The system which generated this result transmitted reference range: <=160. The reference range was not used to interpret this result as normal/abnormal. VLDL (test code = 3498299249) 29 mg/dL 5-60 Lab Interpretation (test code = 55139-0) [facility] [id number] 15:37:19* Test Item Value Reference Range Interpretation Comme nts URIC ACID (test code = 7795395740) 5.1 mg/dL 3.6-8.0 Lab Interpretation (test cod e = 53251-9) [facility] CenterAMYLASE2021-[facility] 15:36:58* Test Item Value Reference Range Interpretation Comme nts MARIA ELENA (test code = 0940011816) 38 U/L 35-110 Lab Interpretation (test cod e = 39877-6) [facility]PO[facility]SE (AUTOMATED)2021-02-26 14:26:57* Test Item Value Reference Range Interpretation Comme nts POCT GLU (test code = 5597868613) 163 mg/dL 70-110 H Lab Interpretation (test cod e = 89775-1) [facility] CenterProtein Total Mystt4853-63-21 13:47:57* Test Item Value Reference Range Interpretation Comme nts T PROTEIN (test code = 0309827877) 6.1 g/dL 6.3-8.2 L Lab Interpretation (test cod e = 08025-2) [facility]normal [facility] CenterMagnesium [id number] 11:57:09* Test Item Value Reference Range Interpretation Comme nts MAGNESIUM (test code = 3298986043) 1.9 mg/dL 1.7-2.4 Lab Interpretation (test cod e = 83503-1) [facility] CenterCOMP. METABOLIC PANEL (26250)2021-02-26 11:56:54* Test Item Value Reference Range Interpretation Comme nts NA (test code = 5985096970) 132 mmol/L 135-145 L K (test code = 0259870768) 4.1 mmol/L 3.5-5.0 CL (test code = 9977211213) 99 mmol/L 98-108 CO2 TOTAL (test code = 5250251707) 24 mmol/L 23-31 AGAP (test code = 6647669305) 2-16 BUN (test code = 8105554883) 10 mg/dL 7-23 GLUCOSE (test code = 9411995755) 182 mg/dL 70-110 H CREATININE (test code = 2980164738) 0.81 mg/dL 0.60-1.25 TOTAL BILI (test code = 8433671095) 1.2 mg/dL 0.1-1.1 H CALCIUM (test code = 1709946608) 8.5 mg/dL 8.6-10.6 L T PROTEIN (test code = 8643948621) 6.1 g/dL 6.3-8.2 L ALBUMIN (test code = 6969025366) 3.4 g/dL 3.5-5.0 L ALK PHOS (test code = 6243416395) 86 U/L 34-122 ALTv (test code = 1742-6) 25 U/L 5-50 AST(SGOT) (test code = 9259534367) 15 U/L 13-40 eGFR (test code = 0016555503) mL/min/1.73m2 CATALINA (test code = CATALINA) Association of Glomerular Filtration Rate (GFR) and Staging of Kidney Disease* + --+ --+ ------+| GFR (mL/min/1.73 m2) ?| With Kidney Damage ?| ?Without Kidney Damage+ --------+ --------+ +| ?>90 ?| ?Stage one ?| ? Normal ?+ ---+ ---+ -------+| ?60-89 ?| ?Stage two ?| ? Decreased GFR ? + --+ --+ ------+| ?30-59 ?| ?Stage three ?| ? Stage three ? + --+ --+ ------+| ?15-29 ?| ?Stage four ? | ? Stage four ?+ ---+ ---+ -------+| ?<15 (or dialysis) ? ?| ?Stage five ? | ? Stage five ?+ ---+ ---+ -------+ *Each stage assumes the associated GFR level has been in effect for at least three months. ?Stages 1 to 5, with or without kidney disease, indicate chronic kidney disease. Notes: Determination of stages one and two (with eGFR >59mL/min/1.73 m2) requires estimation of kidney damage for at least three months as defined by structural or functional abnormalities of the kidney, manifested by either:Pathological abnormalities or Markers of kidney damage (including abnormalities in the composition of the blood or urine or abnormalities in imaging tests). Lab Interpretation (test code = 39775-0) Abnormal [facility] CenterTROPONIN [id number] 11:51:29* Test Item Value Reference Range Interpretation Comments TROPONIN I (test code = 2486657353) 0.001 ng/mL See_Comment [Automated message] The system which generated this result transmitted reference range: <=0.034. The reference range was not used to interpret this result as normal/abnormal. CATALINA (test code = CATALINA) Reference (Normal) Range (defined by the 99th percentile reference limit): <= 0.034 ng/mL Note: Cardiac troponin begins to rise 3-4 hours after the onset of ischemia. Repeat in 4-6 hours if the sample was drawn within 3-4 hours of the onset of the symptom and found normal. Diagnosis of myocardial injury is made with acute changes in cTn concentrations with at least one serial sample above the 99th percentile upper reference limit (URL), taken together with the patient's clinical presentation. Biotin has been reported to cause a negative bias, interpret results relative to patient's use of biotin. Lab Interpretation (test code = 80739-3) Normal [facility] CenterN-TERMINAL [id number] 11:48:52* Test Item Value Reference Range Interpretation Comme nts NT-proBNP (test code = 1714484561) 61 pg/mL See_Comment [Automated message] The system which generated this result transmitted reference range: <=125. The reference range was not used to interpret this result as normal/abnormal. CATALINA (test code = CATALINA) Biotin has been reported to cause a negative bias, interpret results relative to patient's use of biotin. Lab Interpretation (test code = 94240-6) Normal [facility] CenterCBC with Zhsuqkztztky2779-18-98 11:08:26* Test Item Value Reference Range Interpretation Comme nts WBC (test code = 6690-2) See_Comment H [Automated message] The system which generated this result transmitted reference range: 4.20 - 10.70 10*3/?L. The reference range was not used to interpret this result as normal/abnormal. RBC (test code = 789-8) See_Comment [Automated message] The system which generated this result transmitted reference range: 4.26 - 5.52 10*6/?L. The reference range was not used to interpret this result as normal/abnormal. HGB (test code = 718-7) 12.9 g/dL 12.2-16.4 HCT (test code = 4544-3) 38.9 % 38.4-49.3 MCV (test code = 787-2) 87.0 fL 81.7-95.6 MCH (test code = 785-6) 28.9 pg 26.1-32.7 MCHC (test code = 786-4) 33.2 g/dL 31.2-35.0 RDW-SD (test code = 78806-5) 40.2 fL 38.5-51.6 RDW-CV (test code = 788-0) 12.7 % 12.1-15.4 PLT (test code = 777-3) See_Comment H [Automated message] The system which generated this result transmitted reference range: 150 - 328 10*3/?L. The reference range was not used to interpret this result as normal/abnormal. MPV (test code = 57056-7) 10.2 fL 9.8-13.0 NRBC/100 WBC (test code = 2669281436) See_Comment [Automated message] The system which generated this result transmitted reference range: 0.0 - 10.0 /100 WBCs. The reference range was not used to interpret this result as normal/abnormal. NRBC x10^3 (test code = 9818457180) <0.01 See_Comment [Automated message] The system which generated this result transmitted reference range: 10*3/?L. The reference range was not used to interpret this result as normal/abnormal. GRAN MAT (NEUT) % (test code = 770-8) 79.1 % IMM GRAN % (test code = 9245096130) 0.60 % LYMPH % (test code = 736-9) 10.0 % MONO % (test code = 5905-5) 9.6 % EOS % (test code = 713-8) 0.3 % BASO % (test code = 706-2) 0.4 % GRAN MAT x10^3(ANC) (test code = 7377943827) 11.11 10*3/uL 1.99-6.95 H IMM GRAN x10^3 (test code = 4195484874) 0.09 10*3/uL 0.00-0.06 H LYMPH x10^3 (test code = 731-0) 1.40 10*3/uL 1.09-3.23 MONO x10^3 (test code = 742-7) 1.35 10*3/uL 0.36-1.02 H EOS x10^3 (test code = 711-2) 0.04 10*3/uL 0.06-0.53 L BASO x10^3 (test code = 704-7) 0.06 10*3/uL 0.01-0.09 Lab Interpretation (test code = 68235-8) Abnormal [facility] CenterAC[facility] VENOUS BLOOD [id number] 06:40:24 * Test Item Value Reference Range Interpretation Comme nts PH (test code = 7895903598) 7.32-7.42 PCO2 MICHELLE (test code = 3116015130) See_Comment L [Automated messa ge] The system which generated this result transmitted reference range: 41 - 51 mmHg. The reference range was not used to interpret this result as normal/abnormal. PO2 MICHELLE (test code = 9136725735) See_Comment H [Automated messa ge] The system which generated this result transmitted reference range: 25 - 40 mmHg. The reference range was not used to interpret this result as normal/abnormal. HCO3 MICHELLE (test code = 8228298199) See_Comment [Automated messa ge] The system which generated this result transmitted reference range: 24 - 28 mEq/L. The reference range was not used to interpret this result as normal/abnormal. AC VBE(BEAKER) (test code = 0024023006) mEq/L Lab Interpretation (test code = 15935-2) Abnormal [facility] CenterTROPONIN [id number] 05:46:11* Test Item Value Reference Range Interpretation Comments TROPONIN I (test code = 9038585934) 0.003 ng/mL See_Comment [Automated message] The system which generated this result transmitted reference range: <=0.034. The reference range was not used to interpret this result as normal/abnormal. CATALINA (test code = CATALINA) Reference (Normal) Range (defined by the 99th percentile reference limit): <= 0.034 ng/mL Note: Cardiac troponin begins to rise 3-4 hours after the onset of ischemia. Repeat in 4-6 hours if the sample was drawn within 3-4 hours of the onset of the symptom and found normal. Diagnosis of myocardial injury is made with acute changes in cTn concentrations with at least one serial sample above the 99th percentile upper reference limit (URL), taken together with the patient's clinical presentation. Biotin has been reported to cause a negative bias, interpret results relative to patient's use of biotin. Lab Interpretation (test code = 48384-0) Normal [facility] CenterLAMIATE [id number] 05:33:54* Test Item Value Reference Range Interpretation Comme [facility] LDH (test code = 6991569726) 427 U/L 300-600 Lab Interpretation (test cod e = 62400-7) Normal [facility] CenterSEDIMENTATION [id number] 05:31:01* Test Item Value Reference Range Interpretation Comme nts ESR (test code = 0071018884) See_Comment [Automated messa ge] The system which generated this result transmitted reference range: 0 - 10 mm/HR. The reference range was not used to interpret this result as normal/abnormal. Lab Interpretation (test code = 05808-0) [facility] Hhrnq5696-74-80 05:09:42* Test Item Value Reference Range Interpretation Comme nts LACTIC ACID (test code = 2959672179) 1.41 mmol/L 0.50-2.20 Lab Interpretation (test cod e = 00617-7) Normal [facility] CenterPOMI GLUCOSE (AUTOMATED)2021-02-26 04:56:49* Test Item Value Reference Range Interpretation Comme nts POCT GLU (test code = 4467820642) 146 mg/dL 70-110 H Lab Interpretation (test cod e = 83616-1) Abnormal [facility] CenterGLYCOSYLATED HEMOGLOBIN (A1C)2021-02-26 04:38:39* Test Item Value Reference Range Interpretation Comme nts HGB A1C (test code = 4548-4) 6.8 % 4.0-5.7 H CATALINA (test code = CATALINA) Reference RangesNormal: <5.7%Prediabetes: 5.7 - 6.4%Diabetes: > 6.5% Lab Interpretation (test code = 26176-4) Abnormal [facility] CenterPhosphorus [id number] 02:43:30* Test Item Value Reference Range Interpretation Comme nts PHOSPHORUS (test code = 3223797681) 3.2 mg/dL 2.5-5.0 Lab Interpretation (test cod e = 59533-3) Normal [facility] CenterTROPONIN [id number] 17:37:48* Test Item Value Reference Range Interpretation Comments TROPONIN I (test code = 7840301795) 0.001 ng/mL See_Comment [Automated message] The system which generated this result transmitted reference range: <=0.034. The reference range was not used to interpret this result as normal/abnormal. CATALINA (test code = CATALINA) Reference (Normal) Range (defined by the 99th percentile reference limit): <= 0.034 ng/mL Note: Cardiac troponin begins to rise 3-4 hours after the onset of ischemia. Repeat in 4-6 hours if the sample was drawn within 3-4 hours of the onset of the symptom and found normal. Diagnosis of myocardial injury is made with acute changes in cTn concentrations with at least one serial sample above the 99th percentile upper reference limit (URL), taken together with the patient's clinical presentation. Biotin has been reported to cause a negative bias, interpret results relative to patient's use of biotin. Lab Interpretation (test code = 81914-3) Normal [facility] CenterETHANOL2021-11-03 17:36:29* Test Item Value Reference Range Interpretation Comme nts ALCOHOL (test code = 9056945576) <10 mg/dL CATALINA (test code = CATALINA) <10 Wspqtwcx95-719 Toxic>100 Depression of HUMAN RESOURCES REPRESENTATIVE>400 Fatalities Reported [facility] CenterACETAMINOPHEN2021-11-03 17:36:29* Test Item Value Reference Range Interpretation Comme nts ACETAMINOP (test code = 6232618336) <10.0 10.0-30.0 L CATALINA (test code = CATALINA) Toxic: Greater stuart n 200 ug/mL @ 4 hour post ingestion or greater than 50 ug/mL @ 12 hour post ingestion Lab Interpretation (test code = 42714-0) Abnormal [facility] CenterN-TERMINAL [id number] 17:27:26* Test Item Value Reference Range Interpretation Comme nts NT-proBNP (test code = 3633436404) 66 pg/mL See_Comment [Automated message] The system which generated this result transmitted reference range: <=125. The reference range was not used to interpret this result as normal/abnormal. CATALINA (test code = CATALINA) Biotin has been reported to cause a negative bias, interpret results relative to patient's use of biotin. Lab Interpretation (test code = 55970-1) Normal [facility] CenterCOMP. METABOLIC PANEL (43324)2021-02-25 17:26:45* Test Item Value Reference Range Interpretation Comme nts NA (test code = 9837586068) 135 mmol/L 135-145 K (test code = 3969353771) 4.3 mmol/L 3.5-5.0 CL (test code = 4528924167) 100 mmol/L 98-108 CO2 TOTAL (test code = 6719325620) 23 mmol/L 23-31 AGAP (test code = 4724011724) 2-16 BUN (test code = 1259930237) 9 mg/dL 7-23 GLUCOSE (test code = 6484464297) 147 mg/dL 70-110 H CREATININE (test code = 3102794224) 0.72 mg/dL 0.60-1.25 TOTAL BILI (test code = 0319517004) 1.2 mg/dL 0.1-1.1 H CALCIUM (test code = 6232480675) 9.2 mg/dL 8.6-10.6 T PROTEIN (test code = 3338435363) 7.3 g/dL 6.3-8.2 ALBUMIN (test code = 5200503845) 4.4 g/dL 3.5-5.0 ALK PHOS (test code = 4626398706) 90 U/L 34-122 ALTv (test code = 1742-6) 40 U/L 5-50 AST(SGOT) (test code = 9771287756) 28 U/L 13-40 eGFR (test code = 9270961631) mL/min/1.73m2 CATALINA (test code = CATALINA) Association of Glomerular Filtration Rate (GFR) and Staging of Kidney Disease* + --+ --+ ------+| GFR (mL/min/1.73 m2) ?| With Kidney Damage ?| ?Without Kidney Damage+ --------+ --------+ +| ?>90 ?| ?Stage one ?| ? Normal ?+ ---+ ---+ -------+| ?60-89 ?| ?Stage two ?| ? Decreased GFR ? + --+ --+ ------+| ?30-59 ?| ?Stage three ?| ? Stage three ? + --+ --+ ------+| ?15-29 ?| ?Stage four ? | ? Stage four ?+ ---+ ---+ -------+| ?<15 (or dialysis) ? ?| ?Stage five ? | ? Stage five ?+ ---+ ---+ -------+ *Each stage assumes the associated GFR level has been in effect for at least three months. ?Stages 1 to 5, with or without kidney disease, indicate chronic kidney disease. Notes: Determination of stages one and two (with eGFR >59mL/min/1.73 m2) requires estimation of kidney damage for at least three months as defined by structural or functional abnormalities of the kidney, manifested by either:Pathological abnormalities or Markers of kidney damage (including abnormalities in the composition of the blood or urine or abnormalities in imaging tests). Lab Interpretation (test code = 72830-2) Abnormal [facility] CenterSALICYLATE2021-11-03 17:26:45* Test Item Value Reference Range Interpretation Comme nts SALICYLATE (test code = 0351711014) 16 mg/L CATALINA (test code = CATALINA) Therapeutic Range: ? Analgesic and Antipyretic Use ? 20-100 mg/L ? ? Anti-Inflammatory Use ? 100-250 mg/L Toxic Range: ? Greater than 300 mg/L [facility] CenterLIPASE2021-11-03 17:26:30* Test Item Value Reference Range Interpretation Comme nts LIPASE (test code = 2737907848) 59 U/L 0-220 Lab Interpretation (test cod e = 46635-9) Normal [facility] CenterACTIVATED PARTIAL THRMPLAS [id number] 17:23:47* Test Item Value Reference Range Interpretation Comme [facility] APTT Patient (test code = 3173-2) See_Comment [Automated message] The system which generated this result transmitted reference range: 23 - 38 Seconds. The reference range was not used to interpret this result as normal/abnormal. CATALINA (test code = CATALINA) The [facility] patient population mean normal value for aPTT is 30 seconds. Lab Interpretation (test code = 22468-2) Normal [facility] CenterPROTHROMBIN TIME / [id number] 17:21:48* Test Item Value Reference Range Interpretation Comme [facility] PROTIME PATIENT (test code = 5964-2) See_Comment [Automated messa ge] The system which generated this result transmitted reference range: 12.0 - 14.7 Seconds. The reference range was not used to interpret this result as normal/abnormal. INR (test code = 6301-6) Normal INR <1.1; Warfarin Therapeutic range 2.0 to 3.0 or 2.5 to 3.5, depending upon the indications. Lab Interpretation (test code = 51964-4) Normal [facility] CenterAC PANEL 21 + LACTIC [id number] 16:45:09* Test Item Value Reference Range Interpretation Comme [facility] PH (test code = 9782682035) 7.32-7.42 PCO2 MICHELLE (test code = 1843990527) See_Comment L [Automated messa ge] The system which generated this result transmitted reference range: 41 - 51 mmHg. The reference range was not used to interpret this result as normal/abnormal. PO2 MICHELLE (test code = 8402004940) See_Comment [Automated messa ge] The system which generated this result transmitted reference range: 25 - 40 mmHg. The reference range was not used to interpret this result as normal/abnormal. HCO3 MICHELLE (test code = 7560110874) See_Comment [Automated messa ge] The system which generated this result transmitted reference range: 24 - 28 mEq/L. The reference range was not used to interpret this result as normal/abnormal. AC VBE(BEAKER) (test code = 3576603256) mEq/L THB MICHELLE (test code = 4720788106) 14.9 g/dL 13.5-18.0 %O2HB MICHELLE (test code = 3025635346) 62.7 % 52.0-63.0 %COHB MICHELLE (test code = 9471472375) 1.6 % 0.0-1.5 H %METHB MICHELLE (test code = 7183085858) 0.4 % 0.4-1.5 VOL%O2 MICHELLE (test code = 5852434917) 13.1 % 6.0-12.0 H NA (test code = 1359690881) 136 mmol/L 135-145 K+ (test code = 2442434262) 4.2 mmol/L 3.5-5.0 AC CA IONZ (test code = 5365560582) 4.30 mg/dL 4.50-5.30 L GLUCOSE (test code = 5145427787) 152 mg/dL 70-110 H LACTIC ACID (test code = 1282372088) 2.02 mmol/L 0.50-2.20 Lab Interpretation (test code = 31729-4) Abnormal [facility] WITH [id number] 16:43:42* Test Item Value Reference Range Interpretation Comme nts WBC (test code = 6690-2) See_Comment H [Automated Anturisa Stocard] The system which generated this result transmitted reference range: 4.20 - 10.70 10*3/?L. The reference range was not used to interpret this result as normal/abnormal. RBC (test code = 789-8) See_Comment [Automated Ant[employer]isa Stocard] The system which generated this result transmitted reference range: 4.26 - 5.52 10*6/?L. The reference range was not used to interpret this result as normal/abnormal. HGB (test code = 718-7) 13.9 g/dL 12.2-16.4 HCT (test code = 4544-3) 41.4 % 38.4-49.3 MCV (test code = 787-2) 86.1 fL 81.7-95.6 MCH (test code = 785-6) 28.9 pg 26.1-32.7 MCHC (test code = 786-4) 33.6 g/dL 31.2-35.0 RDW-SD (test code = 34547-6) 38.5 fL 38.5-51.6 RDW-CV (test code = 788-0) 12.2 % 12.1-15.4 PLT (test code = 777-3) See_Comment H [Automated messa ge] The system which generated this result transmitted reference range: 150 - 328 10*3/?L. The reference range was not used to interpret this result as normal/abnormal. MPV (test code = 08265-4) 10.0 fL 9.8-13.0 NRBC/100 WBC (test code = 2844051366) See_Comment [Automated [employer] ssage] The system which generated this result transmitted reference range: 0.0 - 10.0 /100 WBCs. The reference range was not used to interpret this result as normal/abnormal. NRBC x10^3 (test code = 6415072544) <0.01 See_Comment [Automated messa ge] The system which generated this result transmitted reference range: 10*3/?L. The reference range was not used to interpret this result as normal/abnormal. GRAN MAT (NEUT) % (test code = 770-8) 75.9 % IMM GRAN % (test code = 3602306200) 0.50 % LYMPH % (test code = 736-9) 11.6 % MONO % (test code = 5905-5) 11.6 % EOS % (test code = 713-8) 0.1 % BASO % (test code = 706-2) 0.3 % GRAN MAT x10^3(ANC) (test code = 8615598793) 8.99 10*3/uL 1.99-6.95 H IMM GRAN x10^3 (test code = 6606605454) 0.06 10*3/uL 0.00-0.06 LYMPH x10^3 (test code = 731-0) 1.38 10*3/uL 1.09-3.23 MONO x10^3 (test code = 742-7) 1.38 10*3/uL 0.36-1.02 H EOS x10^3 (test code = 711-2) <0.03 0.06-0.53 L BASO x10^3 (test code = 704-7) 0.04 10*3/uL 0.01-0.09 Lab Interpretation (test code = 95953-8) Abnormal [facility] CenterCT ABDOMEN PELVIS W [id number] 23:44:31Impression: No acute abdominal or pelvic pathology. Large fat-containing right inguinal hernia. Normal appendix. RL 460End of report. Exam:CT Abdomen and Pelvis with Contrast, 06/19/2020 3:45 PM. Ordering Physician: NIKOLAY SCHROEDER. History: Abdominal pain, hernia suspected . Technique: CT images of the abdomen and pelvis was obtained withintravenous contrast. ?Coronal and sagittal reconstructed images wereobtained. CT technique and radiation exposure utilized ALARA. Mild motionartifact. Comparison: None. Findings: CT abdomen:The visu alized lung bases are clear. The stomach is mildly distended. Small region of mild focal fatty infiltration in the left hepatic lobe.Minimal diffuse fatty infiltration throughout the remaining liver.Liversize is normal. Gallbladder, spleen, pancreas, adrenal glands, and the kidneys areunremarkable. No hydronephrosis or hydroureter. Normal caliber abdominal aorta. No abdominal, pelvic, nor inguinal lymphadenopathy. CT pelvis:No dilated bowel loops. Normal appendix. No free intraperitoneal air or fluid. Large fat-containing right inguinal hernia extends into the right scrotum.Small right and trace left hydroceles. Right varicocele. No acute osseous abnormality. Minimal levoconvex curvature of the lumbarspine. [facility], Radiant Results Inft User - 06/19/2020 5:45 PM CSTExam: CT Abdomen and Pelvis with Contrast, 06/19/2020 3:45 PM.Ordering Physician: NIKOLAY SCHROEDER.History: Abdominal pain, hernia suspected .Technique: CT images of the abdomen and pelvis was obtained withintravenous contrast. Coronal and sagittal reconstructed images wereobtained. CT technique and radiation exposure utilized ALARA. Mild motionartifact.Comparison: None.Findings: CT abdomen:The visualized lung bases are clear.The stomach is mildly distended.Small region of mild focal fatty infiltration in the left hepaticlobe.Minimal diffuse fatty infiltration throughout the remaining liver. Liversize is normal.Gallbladder, spleen, pancreas, adrenal glands, and the kidneys areunremarkable. No hydronephrosis or hydroureter.Normal caliber abdominal aorta.No abdominal, pelvic, nor inguinal lymphadenopathy. CT pelvis:No dilated bowel loops.Normal appendix.No free intraperitoneal air or fluid.Large fat-containing right inguinal hernia extends into the right scrotum.Small right and trace left hydroceles. Right varicocele.No acute osseous abnormality. Minimal levoconvex curvature of the lumbarspine.IMPRESSIONImpression: No acute abdominal or pelvic pathology. Large fat-containing right inguinal hernia.Normal appendix.RL 460End of report. [facility] Metabolic Panel (NA, K, CL, CO2, GLUCOSE, BUN, CREATININE, CA)2020-06-19 22:32:00* Test Item Value Reference Range Interpretation Comme nts NA (test code = 6672557032) 141 mmol/L 135-145 K (test code = 1154600011) 3.9 mmol/L 3.5-5 CL (test code = 2026632547) 104 mmol/L 98-108 CO2 TOTAL (test code = 5315556310) 29 mmol/L 23-31 AGAP (test code = 4855000302) 2-16 BUN (test code = 4011155871) 14 mg/dL 7-23 GLUCOSE (test code = 3926590496) 115 mg/dL 70-110 H CREATININE (test code = 1013820521) 0.73 mg/dL 0.6-1.25 CALCIUM (test code = 1416097889) 9.4 mg/dL 8.6-10.6 eGFR Calculation (Non-) (test code = 9830488162) mL/min/1.73m2 eGFR Calculation () (test code = 6041728365) mL/min/1.73m2 CATALINA (test code = CATALINA) Association of Glomerular Filtration Rate (GFR) and Staging of Kidney Disease* + --+ --+ ------+| GFR (mL/min/1.73 m2) ?| With Kidney Damage ?| ?Without Kidney Damage+ --------+ --------+ +| ?>90 ?| ?Stage one ?| ? Normal ?+ ---+ ---+ -------+| ?60-89 ?| ?Stage two ?| ? Decreased GFR ? + --+ --+ ------+| ?30-59 ?| ?Stage three ?| ? Stage three ? + --+ --+ ------+| ?15-29 ?| ?Stage four ? | ? Stage four ?+ ---+ ---+ -------+| ?<15 (or dialysis) ? ?| ?Stage five ? | ? Stage five ?+ ---+ ---+ -------+ *Each stage assumes the associated GFR level has been in effect for at least three months. ?Stages 1 to 5, with or without kidney disease, indicate chronic kidney disease. Notes: Determination of stages one and two (with eGFR >59mL/min/1.73 m2) requires estimation of kidney damage for at least three months as defined by structural or functional abnormalities of the kidney, manifested by either:Pathological abnormalities or Markers of kidney damage (including abnormalities in the composition of the blood or urine or abnormalities in imaging tests). Lab Interpretation (test code = 74521-4) [facility]2020-06-19 22:30:00* Test Item Value Reference Range Interpretation Comme nts SARS-CoV-2 Rapid ID NOW (test code = 10550-3) Not Detected Not Detected CATALINA (test code = CATALINA) ID NOW COVID-19 As say is an isothermal nucleic acid amplification test intended for the qualitative detection of nucleic acid from SARS-CoV-2 viral RNA in nasopharyngeal (OPERATOR SUPPLY) specimens. It is used under Emergency Use Authorization (EUA) by FDA. The limit of detection (LOD) of the assay is 125 Genome Equivalents/mL. A positive result is indicative of the presence of SARS-CoV-2 RNA. ?Clinical correlation with patient history and other diagnostic information is necessary to determine patient infection status. A negative (Not Detected) result does not preclude SARS-CoV-2 infection. In patients with clinical symptoms and other tests that are consistent with SARS-CoV-2 infection, negative results should be treated as presumptive negative and a new specimen should be tested with alternative PCR molecular test. Invalid: Please collect a new specimen for repeat patient testing if clinically indicated. Lab Interpretation (test code = 93456-9) [facility]24[facility]00* Test Item Value Reference Range Interpretation Comme nts APPEARANCE (test code = 9654548304) Clear Clear COLOR (test code = 1761953097) Straw Yellow A PH (test code = 4796690861) 4.8-8.0 SP GRAVITY (test code = 5471622949) 1.003-1.030 GLU U QUAL (test code = 5409953712) Normal Normal BLOOD (test code = 8560866807) Negative Negative KETONES (test code = 1716187352) Negative Negative PROTEIN (test code = 2887-8) Negative Negative UROBILIN (test code = 8062842993) Normal Normal BILIRUBIN (test code = 8186030899) Negative Negative NITRITE (test code = 9030077918) Negative Negative LEUK DESIREE (test code = 0963370731) Negative Negative RBC/HPF (test code = 5709294057) <1 See_Comment [Automated messa ge] The system which generated this result transmitted reference range: 0 - 3 HPF. The reference range was not used to interpret this result as normal/abnormal. WBC/HPF (test code = 0808052489) <1 See_Comment [Automated messa ge] The system which generated this result transmitted reference range: 0 - 5 HPF. The reference range was not used to interpret this result as normal/abnormal. BACTERIA (test code = 9233859444) Negative Negative SQ EPITH (test code = 6257261148) <1 HPF Lab Interpretation (test code = 04489-6) Abnormal [facility] with [id number] 22:17:00* Test Item Value Reference Range Interpretation Comme nts WBC (test code = 6690-2) See_Comment [Automated messa ge] The system which generated this result transmitted reference range: 4.20 - 10.70 10*3/?L. The reference range was not used to interpret this result as normal/abnormal. RBC (test code = 789-8) See_Comment [Automated messa ge] The system which generated this result transmitted reference range: 4.26 - 5.52 10*6/?L. The reference range was not used to interpret this result as normal/abnormal. HGB (test code = 718-7) 15.1 g/dL 12.2-16.4 HCT (test code = 4544-3) 45.6 % 38.4-49.3 MCV (test code = 787-2) 90.1 fL 81.7-95.6 MCH (test code = 785-6) 29.8 pg 26.1-32.7 MCHC (test code = 786-4) 33.1 g/dL 31.2-35 RDW-SD (test code = 92271-7) 42.1 fL 38.5-51.6 RDW-CV (test code = 788-0) 12.7 % 12.1-15.4 PLT (test code = 777-3) See_Comment [Automated messa ge] The system which generated this result transmitted reference range: 150 - 328 10*3/?L. The reference range was not used to interpret this result as normal/abnormal. MPV (test code = 99227-9) 10.3 fL 9.8-13 NRBC/100 WBC (test code = 0056269919) See_Comment [Automated me ssage] The system which generated this result transmitted reference range: 0.0 - 10.0 /100 WBCs. The reference range was not used to interpret this result as normal/abnormal. NRBC x10^3 (test code = 8213124354) <0.01 See_Comment [Automated me ssage] The system which generated this result transmitted reference range: 10*3/?L. The reference range was not used to interpret this result as normal/abnormal. GRAN MAT (NEUT) % (test code = 770-8) 65.3 % IMM GRAN % (test code = 8474863334) 0.30 % LYMPH % (test code = 736-9) 26.1 % MONO % (test code = 5905-5) 6.7 % EOS % (test code = 713-8) 1.0 % BASO % (test code = 706-2) 0.6 % GRAN MAT x10^3(ANC) (test code = 9692102388) 4.11 10*3/uL 1.99-6.95 IMM GRAN x10^3 (test code = 0738208914) <0.03 0-0.06 LYMPH x10^3 (test code = 731-0) 1.64 10*3/uL 1.09-3.23 MONO x10^3 (test code = 742-7) 0.42 10*3/uL 0.36-1.02 EOS x10^3 (test code = 711-2) 0.06 10*3/uL 0.06-0.53 BASO x10^3 (test code = 704-7) 0.04 10*3/uL 0.01-0.09 [facility] Notes Date/Time Note Provider Source 2024-05-08 20:44:11 Patient given printed and verbal discharge instructions regarding pain management and aftercare referrals, encouraged hydration and proper nutrition. Prescriptions provided: 2 Discussed indications, side effects and expected therapeutic response to medications. Advised to take until completed unless adverse reaction occurs - if occurs, discontinue medication and follow up with PCP /seek medical attention. Patient verbalized understanding of instructions. Patient is awake alert oriented, respirations even & unlabored, skin warm & dry, color appropriate for race, moves all extremities well, patient encouraged to follow up with PCP and keep all appropriate appointments as otherwise scheduled or to return to ED for new, prolonged, or worsening of symptoms. No adverse reaction to meds given in ER noted upon discharge. Patient departed ED ambulatory with steady gait with adult friend, in possession of all belongings. GAGE LOAN OFFICER Lc Apodaca RN [facility] 2024-05-08 20:27:35 DC hold, pending registration [facility] 2024-05-08 20:05:00 STEPHANIE Freeman at bedside [facility] 2024-05-08 19:33:04 Ping Rosales . is a 33 year old male with CC of left shoulder and back pain. Patient states that he was at work and was accidentally struck by a door to his left shoulder. Patient said the pain sent a "shock" down his back. Denies head strike. Patient is ambulatory with steady gait. Patient states PMHx of HTN and DM but uncontrolled for the last 5 years. A&Ox4, RR E/U, in NAD. Call rogers within reach. [facility] 2024-05-08 19:12:07 Ping Rosales Jr. is a 33 year old male amb to triage for c/o back and L shoulder pain. Pt reports was at work today when someone hit his back and L shoulder on a door. Pt reports after he got hit, he felt a shock go down the right side of his body. RR even and unlabored. Pt AAOx4. NAD. [facility] Luzma Garcia RN [facility]
--- NOTE | 2024-06-08 21:02 | RAD REPORT ---
Exam:Hand Left 3 View CLINICAL HISTORY: Left hand pain FINDINGS: No fracture or dislocation seen Mild medial subluxation first proximal phalanx. A radiopaque or body is not seen.
--- NOTE | 2024-06-08 23:25 | EDPHYS ---
Physician Documentation [facility] Name: Kartik Swartz Jr Age: 34 yrs Sex: Male : 1990 Arrival Date: 06/08/2024 Time: 18:29 Bed IW1 Private MD: ED Physician Melquiades Snow HPI: 06/09 00:39 This 34 yrs old Black Male presents to ER via Ambulatory with complaints of Hand Injury.sb4 00:39 patient thinks he was bit by something in the middle of the night on the palm of his sb4 left hand. reports a puncture wound and pain to the area. states his last tetanus shot was 5 years ago. Historical: - Allergies: 06/08 19:31 ROBITUSSIN; al5 19:31 Tylenol-Codeine #3; al5 - PMHx: 19:31 Diabetes - NIDDM; Hypertension; Pancreatitis; Schizophrenia; al5 - PSHx: 19:31 hernia repair (Schizophrenia); al5 - Immunization history:: Adult Immunizations up to date. - Infectious Disease History:: Denies. - Social history:: Smoking status: Patient reports the use of cigarette tobacco products, smokes one-half pack cigarettes per day. ROS: 06/09 00:39 Constitutional: Negative for fever, chills, and weight loss, sb4 Skin: Positive for per HPI, All other systems are negative, Exam: 00:39 Head/Face: Normocephalic, atraumatic. Eyes: Extra-ocular motions intact. Periorbital sb4 areas with no swelling, redness, or edema. ENT: Mucous membranes moist. Respiratory: No increased work of breathing, no retractions or nasal flaring. 00:39 Constitutional: The patient appears in no acute distress, alert, awake, obese, 00:39 Skin: injury, puncture(s), that are superficial, of the palm of left hand, Vital Signs: 06/08 19:34 BP 157 / 104; Pulse 114; Resp 18; Temp 98.7; Pulse Ox 100% on R/A; Weight 100.7 kg; al5 Height 5 ft. 9 in. ; Pain 10/10; 23:19 BP 169 / 119; Pulse 105; Resp 18; Pulse Ox 100% ; al5 19:34 Body Mass Index 32.78 (100.70 kg, 175.26 cm) al5 19:34 Pain Scale: Adult al5 MDM: 19:37 Medical Screening Exam initiated sb4 06/09 00:40 Data reviewed: vital signs, nurses notes, radiologic studies, and as a result, I will sb4 discharge patient. Counseling: I had a detailed discussion with the patient and/or guardian regarding the historical points, exam findings, and any diagnostic results supporting the discharge/admit diagnosis, radiology results, the need for outpatient follow up, for definitive care, to return to the emergency department if symptoms worsen or persist or if there are any questions or concerns that arise at home. 06/08 19:50 Order name: Hand Left 3 View XRAY; Complete Time: 21:08 sb4 Administered Medications: 06/08 23:25 CANCELLED (Patient Refused): [id number] mg PO once sb4 23:32 Drug: Ibuprofen PO 800 mg PO once Route: PO; al5 23:33 Follow up: Response: No adverse reaction; Medication administered at discharge. al5 23:33 Drug: Amoxicillin-Clavulanate PO 875 mg PO once Route: PO; al5 23:33 Follow up: Response: No adverse reaction; Medication administered at discharge. al5 Disposition Summary: 06/08/24 23:24 Discharge Ordered Notes: Location: Home sb4 Problem: new sb4 Symptoms: are unchanged sb4 Condition: Stable sb4 Diagnosis - Bitten by animal, left hand sb4 Followup: sb4 - With: Emergency Department - When: As needed - Reason: Trouble breathing, Worsening of condition Discharge Instructions: - Discharge Summary Sheet sb4 - Animal Bite, Adult, Adhj-er-Ndyi sb4 - Managing Schizophrenia sb4 Forms: - Antibiotic Education sb4 - Patient Portal Instructions sb4 - Leadership Thank You Letter sb4 Prescriptions: - Augmentin 875-125 mg Oral tablet - take 1 tablet ORAL route every 12 hours for 7 days; 14 tablet; Refills: 0, sb4 Product Selection Permitted - Ibuprofen 800 mg Oral Tablet - take 1 tablet ORAL route every 8 hours As needed take with food; 30 tablet; sb4 Refills: 0, Product Selection Permitted Addendum: 06/10/2024 09:53 Co-signature as Attending Physician, Melquiades Snow MD I agree with the assessment and c irizarry plan of care. Signatures: Dispatcher [employer] EDMelquiades Cota MD MD cha Brown, Sophia PAMonique PAMonique sb4 Jannet Henry, RN RN al5 Corrections: (The following items were deleted from the chart) 06/08 19:34 19:31 Home Meds: losartan Oral; al5 al5 19:34 19:31 Home Meds: Creon Oral; al5 al5 19:34 19:31 Home Meds: Insulin: Lantus Sub-Q; al5 al5 19:34 19:31 Home Meds: Metformin Oral; al5 al5 19:34 19:31 Home Meds: Zyprexa 10 mg Oral tab 1 tab once daily; al5 al5 19:51 19:51 Hand Left 3 View+RAD.RAD.BRZ ordered. EDMS EDMS 23:25 19:51 ZyPREXA PO 10 mg PO once ordered. sb4 sb4
--- NOTE | 2024-06-08 23:25 | ER ---
Nurse's Notes [facility] Name: Kartik Swartz Jr Age: 34 yrs Sex: Male : 1990 Arrival Date: 06/08/2024 Time: 18:29 Bed IW1 Private MD: Diagnosis: Bitten by animal, left hand Presentation: 06/08 19:34 Chief complaint: Patient states: was bitten in L hand last night by something unknown, al5 woke up with back pain, L shoulder pain, and generalized weakness. Coronavirus screen: At this time, the client does not indicate any symptoms associated with coronavirus-19. Ebola Screen: No symptoms or risks identified at this time. Initial Sepsis Screen: Does the patient meet any 2 criteria? HR > 90 bpm. No. Patient's initial sepsis screen is negative. Does the patient have a suspected source of infection? No. Patient's initial sepsis screen is negative. Risk Assessment: Do you want to hurt yourself or someone else? Patient reports no desire to harm self or others. Onset of symptoms was June 07, 2024. 19:34 Method Of Arrival: Ambulatory al5 19:34 Acuity: JENNIFER 4 al5 Triage Assessment: 19:35 General: Appears in no apparent distress. comfortable, Behavior is calm, cooperative. al5 Pain: Complains of pain in anterior aspect of left shoulder, posterior aspect of left shoulder and left hand Pain currently is 10 out of 10 on a pain scale. EENT: No signs and/or symptoms were reported regarding the EENT system. Neuro: Level of Consciousness is awake, alert, obeys commands, Oriented to person, place, time, situation. Cardiovascular: Capillary refill < 3 seconds Patient's skin is warm and dry. Respiratory: Airway is patent Respiratory effort is even, unlabored, Respiratory pattern is regular, symmetrical. GI: No signs and/or symptoms were reported involving the gastrointestinal system. : No signs and/or symptoms were reported regarding the genitourinary system. Derm: Skin is intact, is healthy with good turgor, Skin is pink, warm \T\ dry. normal. Musculoskeletal: Reports pain in anterior aspect of left shoulder, left hand and posterior aspect of left shoulder. Injury Description: none noted to the L hand. Historical: - Allergies: 19:31 ROBITUSSIN; al5 19:31 Tylenol-Codeine #3; al5 - PMHx: 19:31 Diabetes - NIDDM; Hypertension; Pancreatitis; Schizophrenia; al5 - PSHx: 19:31 hernia repair (Schizophrenia); al5 - Immunization history:: Adult Immunizations up to date. - Infectious Disease History:: Denies. - Social history:: Smoking status: Patient reports the use of cigarette tobacco products, smokes one-half pack cigarettes per day. Screenin:36 [facility] ED Fall Risk Assessment (Adult) History of falling in the last 3 months, al5 including since admission No falls in past 3 months (0 pts) Confusion or Disorientation No (0 pts) Intoxicated or Sedated No (0 pts) Impaired Gait No (0 pts) Mobility Assist Device Used No (0 pt) Altered Elimination No (0 pt) Score/Fall Risk Level 0 - 2 = Low Risk Oriented to surroundings, Maintained a safe environment. Abuse screen: Denies threats or abuse. Denies injuries from another. Nutritional screening: No deficits noted. Tuberculosis screening: No symptoms or risk factors identified. Assessment: 19:36 Reassessment: see triage assessment. al5 23:33 Reassessment: Patient appears in no apparent distress at this time. No changes from al5 previously documented assessment. Patient is alert, oriented x 3, equal unlabored respirations, skin warm/dry/pink. patient denies any headache, dizziness, blurred vision. Vital Signs: 19:34 BP 157 / 104; Pulse 114; Resp 18; Temp 98.7; Pulse Ox 100% on R/A; Weight 100.7 kg; al5 Height 5 ft. 9 in. ; Pain 10/10; 23:19 BP 169 / 119; Pulse 105; Resp 18; Pulse Ox 100% ; al5 19:34 Body Mass Index 32.78 (100.70 kg, 175.26 cm) al5 19:34 Pain Scale: Adult al5 ED Course: 18:31 Patient arrived in ED. im 19:13 Becky Diaz PA-C is PHCP. sb4 19:13 Melquiades Snow MD is Attending Physician. sb4 19:35 Triage completed. al5 19:36 Arm band placed on right wrist. Patient placed in waiting room, in view of staff al5 members, Patient notified of wait time. 19:37 [facility]. sb4 19:37 Melquiades Snow MD is Attending Physician. sb4 19:37 Patient has correct armband on for positive identification. Provided Education on: plan al5 of care. 19:37 No provider procedures requiring assistance completed. Patient did not have IV access al5 during this emergency room visit. 20:25 Hand Left 3 View XRAY In Process Unspecified. EDMS 23:32 Jannet Henry, RN is Primary Nurse. al5 Administered Medications: 23:25 CANCELLED (Patient Refused): [id number] mg PO once sb4 23:32 Drug: Ibuprofen PO 800 mg PO once Route: PO; al5 23:33 Follow up: Response: No adverse reaction; Medication administered at discharge. al5 23:33 Drug: Amoxicillin-Clavulanate PO 875 mg PO once Route: PO; al5 23:33 Follow up: Response: No adverse reaction; Medication administered at discharge. al5 Medication: 19:37 VIS not applicable for this client. al5 Outcome: 23:24 Discharge ordered by MD. sb4 23:35 Discharged to home ambulatory, with family, al5 23:35 Condition: good 23:35 Discharge instructions given to patient, family, Instructed on discharge instructions, follow up and referral plans. medication usage, Demonstrated understanding of instructions, follow-up care, medications, Prescriptions given X 2, 23:35 Patient left the ED. al5 Signatures: Dispatcher [employer] EDKY Becky Diaz PA-C PA-C sb4 Vanessa Lewis Amanda, BETSY RN al5 Corrections: (The following items were deleted from the chart) 19:34 19:31 Home Meds: losartan Oral; al5 al5 19:34 19:31 Home Meds: Creon Oral; al5 al5 19:34 19:31 Home Meds: Insulin: Lantus Sub-Q; al5 al5 19:34 19:31 Home Meds: Metformin Oral; al5 al5 19:34 19:31 Home Meds: Zyprexa 10 mg Oral tab 1 tab once daily; al5 al5 23:34 23:34 Abuse screen: Denies threats or abuse. Denies injuries from another. al5 al5 23:34 23:34 Nutritional screening: No deficits noted. al5 al5 23:34 23:34 Tuberculosis screening: No symptoms or risk factors identified. al5 al5 23:34 23:34 [facility] ED Fall Risk Assessment (Adult) History of falling in the last 3 months, al5 including since admission No falls in past 3 months (0 pts) Confusion or Disorientation No (0 pts) Intoxicated or Sedated No (0 pts) Impaired Gait No (0 pts) Mobility Assist Device Used No (0 pt) Altered Elimination No (0 pt) Score/Fall Risk Level 0 - 2 = Low Risk Oriented to surroundings, Maintained a safe environment, al5
[2024-06-08] MEDS ORDERED: AMOX/K CLAV 875 MG TAB ONE (23:27)
[2024-06-08] MEDS ORDERED: IBUPROFEN 400 MG TAB ONE (23:27)
[2024-06-08 23:40] VITALS: TEMP 98.7; O2SAT 100
[2024-06-08 23:41] VITALS: BP 169/119
== END 2024-06-08 23:35 | disposition home or self-care (01) ==
LOC: ER 18:29
DX: S61.432A Puncture wound without foreign body of left hand, initial encounter (principal); W64.XXXA Exposure to other animate mechanical forces, initial encounter
CPT/HCPCS: 99283

== ENCOUNTER 2024-06-12 23:28 | Emergency (ER) | payer OTHER, SELFPAY ==
--- OUTSIDE RECORDS SUMMARY | 2024-06-12 23:34 | XMS REPORT | Continuity of Care Document ---
Author Name Unknown Address [address] [facility] [address] [place] [address] [facility] Address [address] [facility] [address] [place] [address] Care Team Providers Care Grant Coordinator Name Role Phone PCP, PATIENT DOES NOT HAVE A Primary Care Physic linden Unavailable XOCHITL FREEMAN Attending Clinician Unavailable Xochitl Freeman PA-C Attending Clinician [phone] ESSENCE LANDRY Attending Clinician Unavailable Essence Landry MD Attending Clinician [phone] Doctor Unassigned, [place] Attending Clinician U Laney Haynes LVN Attending Clinician [phone] GORGE TAVAREZ Attending Clinician Unavailable Franklin Chatman MD Attending Clinician [phone] Chaim Ji MD Attending Clinician [phone] Gorge Tavarez MD Attending Clinician [phone] XOCHITL ECHOLS Attending Clinician Unavail Nikolay Cruz Attending Clinician [phone]- [phone] ESSENCE LANDRY Admitting Clinician Unavailable Essence Landry MD Admitting Clinician [phone] GORGE TAVAREZ Admitting Clinician Unavailable Gorge Tavarez MD Admitting Clinician [phone] Payers Payer Name Policy Type Policy Number Effective Date Expirati on Date Source [facility] [id number] 00:00:00 [facility] [place] [id number] 2021 00:00:00 Problems Condition Name Condition Details Condition Category Status Onset Date Resolution Date Last Treatment Date Treating Clinician Comments Source Incarcerat ed right inguinal hernia Incarcerat ed right inguinal hernia Disease Active 08-13 00:00: 00 Overview: Formattin g of this note might be different from the original. Added automatic ally from request for surgery [id number] [facility] Essential hypertensi on Essential hypertensi on Disease Active 2020-04 00:00: 00 [facility] Dyslipidem ia Dyslipidem ia Disease Active 2020-04 00:00: 00 [facility] Type 2 diabetes mellitus with other specified complicati on Type 2 diabetes mellitus with other specified complicati on Disease Active 2020-04 00:00: 00 [facility] Atypical chest pain Atypical chest pain Disease Active 2020-04 00:00: 00 [facility] Tachycardi a Tachycardi a Disease Active 2020-04 00:00: 00 [facility] Acute respirator y distress Acute respirator y distress Disease Active 2020-04 00:00: 00 [facility] Obesity (BMI 30-39.9) Obesity (BMI 30-39.9) Disease Active 10-30 00:00: 00 [facility] DKA (diabetic ketoacidos es) DKA (diabetic ketoacidos es) Disease Active 10-30 00:00: 00 [facility] Hyperlipid emia, unspecifie d hyperlipid emia type Hyperlipid emia, unspecifie d hyperlipid emia type Problem Active [facility] Type 2 diabetes mellitus with hyperglyce juan daniel Type 2 diabetes mellitus with hyperglyce juan daniel Problem Active [facility] 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 [facility] History of pancreatit is History of pancreatit is Problem Active [facility] Anxiety Anxiety Problem Active [facility] Hypertensi on, unspecifie d type Hypertensi on, unspecifie d type Problem Active [facility] Allergies, Adverse Reactions, Alerts Allergy Name Allergy Type Status Severity Reaction(s) Onset Date Inactive Date Treating Clinician Comments Source RISPERID ONE DRUG INGREDI Active Hives 08-12 00:00: 00 [facility] Risperid one Propensi ty to adverse reaction s Active Hives 08-12 00:00: 00 [facility] CODEINE DRUG INGREDI Active Hives 10-30 00:00: 00 [facility] GUAIFENE SIN DRUG INGREDI Active SOB 10-30 00:00: 00 [facility] Codeine Propensi ty to adverse reaction s Active Hives 10-30 00:00: 00 [facility] Guaifene sin Propensi ty to adverse reaction s Active Shortness of Breath 10-30 00:00: 00 [facility] Social History Social Habit Start Date Stop Date Quantity Comments Source History of tobacco use Cigarette Smoker [facility] Cigarettes smoked current (pack per day) - Reported 2022-11-23 00:00:00 2022-11-23 00:00:00 [facility] Cigarette pack-years 2022-11-23 00:00:00 2022-11-23 00:00:00 [facility] Tobacco use and exposure 2022-11-23 00:00:00 2022-11-23 00:00:00 Smokeless tobacco non-user [facility] Alcohol intake 2022-11-23 00:00:00 2022-11-23 00:00:00 Current non-drinker of alcohol (finding) [facility] Alcoholic beverage intake 2022-11-23 00:00:00 2022-11-23 00:00:00 Current non-drinker of alcohol (finding) [facility] History of Social function 2022-09-24 00:00:00 2022-09-24 00:00:00 [facility] Exposure to SARS-CoV-2 (event) 2022-09-05 00:00:00 2022-09-15 09:47:00 Not sure [facility] Sex assigned at 1990 00:00:00 1990 00:00:00 [facility] Smoking Status Start Date Stop Date Source Ex-smoker 2022-11-23 00:00:00 2022-11-23 00:00:00 [facility] Current every day smoker 2020-06-19 00:00:00 [facility] Medications Ordered Medication Name Filled Medication Name Start Date Stop Date Current Medication? Ordering Clinician Indication Dosage Frequency Signature (SIG) Comments Components Source ketorolac (TORADOL) tablet 10 mg 05-09 03:15: 00 05-09 02:21 :00 No 10mg 10 mg, Oral, ONCE, 1 dose, On Tue05/08/24 at 2115, Routine [facility] methocarbam oL (ROBAXIN) tablet 1,000 mg 05-09 02:30: 00 05-09 02:21 :00 No 1000mg 1,000 mg, Oral, ONCE, 1 dose, On Tue05/08/24 at 2030, NICOLE [facility] methocarbam oL 500 mg tablet 05-08 00:00: 00 Yes [id number] 500mg Take 1 tablet by mouth 3 (three) times daily as needed for Pain (scale 4-6). [facility] naproxen (NAPROSYN) 500 mg tablet 05-08 00:00: 00 Yes [id number] 500mg Take 1 tablet by mouth in the morning and 1 tablet in the evening. Take with meals. [facility] citalopram 20 mg tablet 10-12 14:44: 12 Yes 20mg Take 1 tablet by mouth in the morning. [facility] metFORMIN 1,000 mg tablet 10-12 14:44: 12 Yes 1000mg Take 1 tablet by mouth in the morning and 1 tablet in the evening. Take with meals. [facility] metoprolol tartrate 50 mg tablet 10-12 14:44: 12 Yes 50mg Take 1 tablet by mouth in the morning and 1 tablet in the evening. [facility] lactated ringers IV infusion 1,000 mL 09-24 21:15: 00 Yes 1000mL at 75 mL/hr, 1,000 mL, IV Infusion, CONTINUOUS , Starting on Tue09/24/22 at 1615, Until Discontinu ed, Routine, PACU [facility] FENTanyl PF (SUBLIMAZE (PF)) injection 25 mcg 09-24 21:03: 56 Yes 25ug 25 mcg, Slow IV Push, Q5MIN PRN, 4 doses, Starting on Tue09/24/22 at 1603, Until Discontinu ed, Routine, Pain (scale 4-6), PACU [facility] ondansetron (ZOFRAN (PF)) injection 4 mg 09-24 21:03: 56 Yes 4mg 4 mg, Slow IV Push, PRN, 1 dose, Starting on Tue09/24/22 at 1603, Until Discontinu ed, Routine, Nausea and Vomiting (N/V), PACU [facility] sodium chloride 0.9 % irrigation solution 09-24 18:06: 00 09-24 21:05 :01 No PRN, Starting on Tue09/24/22 at 1306, Until Tue09/24/22 at 1605, Intra-op [facility] bupivacaine (preserv free) (SENSORCAIN E MPF) 0.25 % (2.5 mg/mL) 30 mL, BUPivacaine liposome (PF) (EXPAREL (PF)) 1.3 % (13.3 mg/mL) 20 mg, NaCl 0.9% (NS) 50 mL 09-24 18:06: 00 09-24 21:05 :01 No PRN, Starting on Tue09/24/22 at 1306, Intra-op [facility] citalopram 20 mg tablet 09-24 17:20: 52 Yes 20mg Take 1 tablet by mouth in the morning. [facility] metFORMIN 1,000 mg tablet 09-24 17:20: 52 Yes 1000mg Take 1 tablet by mouth in the morning and 1 tablet in the evening. Take with meals. [facility] metoprolol tartrate 50 mg tablet 09-24 17:20: 52 Yes 50mg Take 1 tablet by mouth in the morning and 1 tablet in the evening. [facility] lactated ringers IV infusion 1,000 mL 09-24 15:30: 00 09-24 15:42 :00 No 1000mL at 42 mL/hr, 1,000 mL, IV Infusion, ONCE, 1 dose, On Tue09/24/22 at 1030, Routine, DSU Pre-op [facility] acetaminoph en (TYLENOL) 325 mg Cap 09-24 00:00: 00 10-09 04:59 :00 No [id number] 650mg Take 650 mg by mouth in the morning and 650 mg at noon and 650 mg in the evening. Do all this for 14 days. [facility] celecoxib (CELEBREX) 200 mg capsule 09-24 00:00: 00 10-02 04:59 :00 No [id number] 200mg Take 1 capsule by mouth in the morning and 1 capsule in the evening. Take with meals. Do all this for 7 days. [facility] docusate 100 mg capsule 08-12 09:21: 09 08-12 00:00 :00 No 100mg Take 1 capsule by mouth in the morning. [facility] citalopram (CELEXA) 20 mg tablet 08-12 08:52: 02 Yes 20mg Take 1 tablet by mouth in the morning. [facility] metFORMIN 1,000 mg tablet 08-12 08:52: 02 Yes 1000mg Take 1 tablet by mouth in the morning and 1 tablet in the evening. Take with meals. [facility] aspirin 81 mg chewable tablet 2020-04 00:00: 00 08-12 00:00 :00 No [id number] 81mg Take 1 tablet by mouth daily with breakfast. [facility] docusate (COLACE) 100 mg capsule 2020-04 13:41: 43 Yes 100mg Take 100 mg by mouth daily. [facility] OLANZAPINE (ZYPREXA ORAL) 2020-04 10:34: 52 03-12 00:00 :00 No 20mg Take 20 mg by mouth every evening. [facility] benztropine 1 mg tablet 2020-04 10:34: 52 03-12 00:00 :00 No 1mg Take 1 mg by mouth daily. [facility] METOPROLOL SUCCINATE ORAL 2020-04 10:34: 52 03-12 00:00 :00 No 50mg Take 50 mg by mouth daily. [facility] omeprazole 10 mg capsule 2020-04 10:34: 52 03-12 00:00 :00 No 20mg Take 20 mg by mouth daily. [facility] pravastatin 20 mg tablet 2020-04 10:34: 52 03-12 00:00 :00 No 20mg Take 20 mg by mouth at bedtime. [facility] pravastatin 20 mg tablet 2020-04 00:00: 00 Yes [id number] 20mg Take 1 tablet by mouth at bedtime. [facility] OLANZapine (ZYPREXA) 20 mg tablet 2020-04 00:00: 00 Yes [id number] 20mg Take 1 tablet by mouth at bedtime. [facility] metoprolol succinate XL 50 mg 24 hr tablet 2020-04 00:00: 00 09-24 00:00 :00 No [id number] 50mg Take 1 tablet by mouth 2 (two) times daily. [facility] metformin ER 500 mg 24 hr tablet 2020-04 00:00: 00 08-12 00:00 :00 No [id number] 500mg Take 1 tablet by mouth 2 (two) times daily. [facility] benztropine 1 mg tablet 2020-04 00:00: 00 08-12 00:00 :00 No [id number] 1mg Take 1 tablet by mouth daily. [facility] omeprazole 20 mg capsule 2020-04 00:00: 00 08-12 00:00 :00 No [id number] 20mg Take 1 capsule by mouth daily. [facility] traMADoL 50 mg tablet 2020-04 00:00: 00 08-12 00:00 :00 No [id number] 50mg Take 1 tablet by mouth every 6 (six) hours as needed for Pain (scale 4-6). Indication s: acute pain [facility] acidophilus 100 million cell tablet 2020-04 00:00: 00 08-12 00:00 :00 No [id number] 1g Take 1 tablet by mouth 2 (two) times daily. [facility] amoxicillin -pot clavulanate 500 mg (AUGMENTIN) 500-125 mg tablet 2020-04 00:00: 00 04-03 05:59 :00 No [id number] 500mg Take 1 tablet by mouth 2 (two) times daily for 21 days. [facility] FENTanyl PF (SUBLIMAZE (PF)) injection 50 mcg 2020-04 23:00: 00 Yes 50ug 50 mcg, Slow IV Push, Q8HPRN, Starting on Tue03/11/21 at 1700, Until Discontinu ed, Routine, Pain (scale 7-10) [facility] alteplase (ACTIVASE) flush syringe 10 mg 2020-04 01:15: 00 03-10 00:18 :00 No 10mg 10 mg, Chest Tube, ONCE, 1 dose, On Tue03/09/21 at 1915, NICOLE [facility] alteplase (ACTIVASE) flush syringe 10 mg 2020-04 14:30: 00 03-09 16:11 :00 No 10mg 10 mg, Chest Tube, Q24H, 3 doses, First dose on Tue03/07/21 at 0830, Last dose on Tue03/09/21 at 0830, Routine [facility] dornase kely (PULMOZYME) nebulizer solution Soln 5 mg 2020-04 23:30: 00 03-10 16:50 :35 No 5mg 5 mg, Intrapleur al, Q24H, First dose (after last modificati on) on Tue03/06/21 at 1730, Until Discontinu ed, NICOLE [facility] alteplase (ACTIVASE) flush syringe 10 mg 2020-04 23:30: 00 03-09 23:29 :00 No 10mg 10 mg, Chest Tube, Q24H, 3 doses, First dose (after last modificati on) on Tue03/06/21 at 1730, Last dose on Tue03/08/21 at 1730, NICOLE [facility] dornase kely (PULMOZYME) nebulizer solution Soln 5 mg 2020-04 14:30: 00 03-10 16:50 :35 No 5mg 5 mg, Intrapleur al, Q24H, First dose on Tue03/06/21 at 0830, Until Discontinu ed, Routine [facility] ipratropium -albuteroL (DUONEB) 0.5 mg-3 mg(2.5 mg base)/3 mL nebulizer solution 3 mL 2020-04 21:56: 33 Yes 3mL 3 mL, Inhalation , QIDPRN, Starting on Tue03/05/21 at 1556, Until Discontinu ed, Routine, Wheezing [facility] benzocaine- menthoL (CEPACOL SORE THROAT (DECLAN-MEN)) lozenge 1 Lozenge 2020-04 21:43: 42 Yes 1{lozen ge} 1 Lozenge, Oral, Q4HPRN, Starting on Tue03/03/21 at 1543, Until Discontinu ed, Routine, Sore throat [facility] NaCl 0.9% (NS) IV infusion 500 mL 2020-04 21:00: 00 03-03 21:12 :00 No 500mL at 100 mL/hr, IV Infusion, ONCE, 1 dose, On Tue03/03/21 at 1500, Routine [facility] traMADoL (ULTRAM) tablet 50 mg 2020-04 15:35: 18 Yes 50mg 50 mg, Oral, Q6HPRN, Starting on Tue03/03/21 at 0935, Until Discontinu ed, Routine, Pain (scale 4-6) [facility] melatonin (MELATIN) tablet 3 mg 2020-04 05:00: 00 Yes 3mg 3 mg, Oral, QHS, First dose on Tue03/02/21 at 2300, Until Discontinu ed, Routine [facility] KCL (KLOR-CON M20) tablet 40 mEq 2020-04 02:00: 00 03-03 01:59 :00 No 40meq 40 mEq, Oral, BID, 1 dose, First dose (after last reorder) on Tue03/02/21 at 2000, Routine [facility] KCL (KLOR-CON M20) tablet 40 mEq 2020-04 15:15: 00 03-02 14:22 :00 No 40meq 40 mEq, Oral, ONCE, 1 dose, On Tue03/02/21 at 0915, Routine [facility] doxycycline hyclate (Vibramycin ) capsule 100 mg 2020-04 14:45: 00 03-10 14:50 :32 No 100mg 100 mg, Oral, BID, First dose on Tue03/01/21 at 0845, Until Discontinu ed, NICOLE
Re ason for Anti-Infec tive: Empiric Therapy for Suspected Infection< br>Empiric Therapy Site: Respirator y
Durat ion of therapy: 7 days [facility] ipratropium -albuteroL (DUONEB) 0.5 mg-3 mg(2.5 mg base)/3 mL nebulizer solution 3 mL 2020-04 07:45: 00 03-05 21:56 :14 No 3mL 3 mL, Inhalation , QID, First dose (after last modificati on) on Tue03/01/21 at 0145, Until Discontinu ed, Routine [facility] pseudoephed rine (SUDAFED) tablet 30 mg 2020-04 17:15: 00 Yes 30mg 30 mg, Oral, Q8H, First dose on 02/28/21 at 1215, Until Discontinu ed, Routine [facility] acetaminoph en (TYLENOL) tablet 1,000 mg 2020-04 17:12: 29 Yes 1000mg 1,000 mg, Oral, Q6HPRN, Starting on 02/28/21 at 1212, Until Discontinu ed, Routine, Pain (scale 1-3), Temp > 38.5 C [facility] sodium chloride 7% (HYPER-WAYNE) nebulizer solution 4 mL 2020-04 14:45: 00 02-28 16:05 :00 No 4mL 4 mL, Inhalation , ONCE, 1 dose, On 02/28/21 at 0945, Routine [facility] benzonatate (TESSALON PERLES) capsule 100 mg 2020-04 10:51: 05 Yes 100mg 100 mg, Oral, Q8HPRN, Starting on 02/28/21 at 0551, Until Discontinu ed, Routine, Cough [facility] HYDROcodone -acetaminop hen (NORCO 5) 5-325 mg tablet 1 tablet 2020-04 06:09: 17 03-02 07:08 :17 No 1{tbl} 1 tablet, Oral, Q6HPRN, Starting on 02/28/21 at 0109, Until 03/02/21 at 0108, Routine, Pain (scale 4-6) [facility] sulfur hexafluorid e microsphr (LUMASON) injection 5 mL 2020-04 18:30: 00 02-26 18:45 :00 No [id number] 5mL 5 mL, Intravenou s, ONCE, 1 dose, On Maureen 02/26/21 at 1345, Routine
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
Reas on for Anti-Infec tive: Empiric Therapy for Suspected Infection& lt;br>Empi pola Therapy Site: Respirator y
Durat ion of therapy: 7 days [facility] vancomycin 1500 mg in NS 500 mL [...] y
Durat ion of therapy: 7 days [facility] ipratropium -albuteroL (DUONEB) 0.5 mg-3 mg(2.5 mg base)/3 mL nebulizer solution 3 mL 2020-04 06:15: 00 03-01 07:34 :57 No 3mL 3 mL, Inhalation , BID, First dose on Maureen 02/26/21 at 0115, Until Discontinu ed, Routine [facility] piperacilli n-tazobacta m (ZOSYN) 3.375 g in NaCl 0.9% (NS) 100 mL MINI-BAG 2020-04 05:00: 00 Yes 3.375g 3.375 g, IV Piggyback, Q6H ABX, First dose (after last reorder) on Tue02/26/21 at 0000, Until Discontinu ed, Administer over 30 Minutes, 100 mL
Reas on for Anti-Infec tive: Documented Infection& lt;br>Docu mented Infection Site: Respirator y
Durat ion of Therapy: Other (see Comments) [facility] furosemide (LASIX) injection 20 mg 2020-04 05:00: 00 02-26 04:35 :00 No 20mg 20 mg, IV Push, ONCE, 1 dose, On Tue02/26/21 at 0000, [facility] ([facility]OPRESSOR) injection 5 mg 2020-04 04:45: 00 02-26 04:04 :00 No 5mg 5 mg, Slow IV Push, ONCE, 1 dose, On Tue02/25/21 at 2345, [facility] Sliding Scale Insulin - Lispro (HumaLOG) + Fsbg Testing 2020-04 04:15: 00 Yes Subcutaneo us, TID MEALS, First dose on Tue02/25/21 at 2315, Until Discontinu ed, Routine [facility] aspirin chewable tablet 81 mg 2020-04 04:15: 00 Yes 81mg 81 mg, Oral, QAM WITH BREAKFAST, First dose on Tue02/25/21 at 2315, Until Discontinu ed, Routine [facility] FENTanyl PF (SUBLIMAZE (PF)) injection 50 mcg 2020-04 03:48: 36 03-11 22:51 :45 No 50ug 50 mcg, Slow IV Push, Q4HPRN, Starting on Tue02/25/21 at 2248, Until Tue03/11/21 at 1651, Routine, Pain (scale 7-10) [facility] metoprolol succinate XL (TOPROL XL) tablet 50 mg 2020-04 03:45: 00 Yes 50mg 50 mg, Oral, BID, First dose on Tue02/25/21 at 2245, Until Discontinu ed, Routine [facility] sennosides (SENOKOT) tablet 8.6 mg 2020-04 03:45: 00 Yes 8.6mg 8.6 mg, Oral, BID, First dose on Tue02/25/21 at 2245, Until Discontinu ed, Routine [facility] docusate (COLACE) capsule 100 mg 2020-04 03:45: 00 Yes 100mg 100 mg, Oral, BID, First dose on Tue02/25/21 at 2245, Until Discontinu ed, Routine [facility] omeprazole (PRILOSEC) capsule 40 mg 2020-04 03:45: 00 Yes 40mg 40 mg, Oral, DAILY, First dose on Tue02/25/21 at 2245, Until Discontinu ed, Routine [facility] pravastatin (PRAVACHOL) tablet 20 mg 2020-04 03:45: 00 Yes 20mg 20 mg, Oral, QHS, First dose on Tue02/25/21 at 2245, Until Discontinu ed, Routine [facility] OLANZapine (ZyPREXA) tablet 20 mg 2020-04 03:45: 00 Yes 20mg 20 mg, Oral, QPM, First dose on Tue02/25/21 at 2245, Until Discontinu ed, Routine [facility] benztropine (COGENTIN) tablet 2 mg 2020-04 03:45: 00 Yes 2mg 2 mg, Oral, QPM, First dose on Tue02/25/21 at 2245, Until Discontinu ed, Routine [facility] nitroglycer in (NITROSTAT) sublingual tablet 0.4 mg 2020-04 01:09: 31 Yes .4mg 0.4 mg, Sublingual , Q5MIN PRN, Starting on Tue02/25/21 at 2008, Until Discontinu ed, Routine, Chest pain [facility] morpHINE injection 4 mg 2020-04 01:09: 00 02-26 03:48 :46 No 4mg 4 mg, Slow IV Push, Q4HPRN, Starting on Tue02/25/21 at 2008, Until Tue02/25/21 at 2248, Routine, Pain (scale 7-10) [facility] HYDROcodone -acetaminop hen (NORCO 5) 5-325 mg tablet 1 tablet 2020-04 01:08: 58 02-28 01:07 :58 No 1{tbl} 1 tablet, Oral, Q6HPRN, Starting on Tue02/25/21 at 2007, Until Tue02/27/21 at 2007, Routine, Pain (scale 4-6) [facility] acetaminoph en (TYLENOL) tablet 650 mg 2020-04 01:08: 57 02-28 17:12 :47 No 650mg 650 mg, Oral, Q6HPRN, Starting on Tue02/25/21 at 2007, Until Tue02/28/21 at 1212, Routine, Pain (scale 1-3) [facility] LIPASE/PROT EASE/AMYLAS E (CREON ORAL) 2020-04 22:59: 11 02-25 00:00 :00 No Take by mouth. [facility] piperacilli n-tazobacta m (ZOSYN) 3.375 g in NaCl 0.9% (NS) 100 mL MINI-BAG 2020-04 22:30: 00 02-25 22:00 :00 No 3.375g 3.375 g, IV Piggyback, ONCE, 1 dose, On Tue02/25/21 at 1730, Administer over 30 Minutes, 100 mL
Reas on for Anti-Infec tive: Documented Infection< br>Documen deshaun Infection Site: Respirator y
Durat ion of Therapy: Other (see Comments) [facility] ondansetron (ZOFRAN (PF)) injection 4 mg 2020-04 21:39: 00 02-25 21:40 :00 No 4mg 4 mg, Slow IV Push, ONCE, 1 dose, On Tue02/25/21 at 1645, NICOLE [facility] FENTanyl PF (SUBLIMAZE (PF)) injection 50 mcg 2020-04 21:39: 00 02-25 21:40 :00 No 50ug 50 mcg, Slow IV Push, ONCE, 1 dose, On Tue02/25/21 at 1645, Routine [facility] iopamidol (ISOVUE 370-500 mL) injection 120 mL 2020-04 18:15: 00 02-25 18:14 :00 No [id number] 120mL 120 mL, Intravenou s, ONCE, 1 dose, On Tue02/25/21 at 1315, Routine [facility] NaCl 0.9% (NS) bolus infusion 1,000 mL 2020-04 17:15: 00 02-25 17:45 :00 No 1000mL at 999 mL/hr, 1,000 mL, IV Infusion, ONCE, 1 dose, On Tue02/25/21 at 1215, NICOLE [facility] iohexol (OMNIPAQUE 350 BULK-150 mL) injection 120 mL 06-19 23:00: 00 06-19 22:47 :00 No 120mL 120 mL, Intravenou s, ONCE, 1 dose, Maureen 06/19/20 at 1700, Routine [facility] NaCl 0.9% (NS) bolus infusion 1,000 mL 06-19 21:45: 00 06-20 00:00 :00 No 1000mL at 999 mL/hr, 1,000 mL, IV Infusion, ONCE, 1 dose, Maureen 06/19/20 at 1545, [facility] naproxen sodium (ANAPROX DS) 550 mg tablet 06-19 00:00: 00 Yes [id number] 08 550mg Take 1 tablet by mouth 2 (two) times daily with meals. [facility] OLANZAPINE (ZYPREXA ORAL) 05-05 15:44: 36 Yes 10mg Take 10 mg by mouth every evening. [facility] LIPASE/PROT EASE/AMYLAS E (CREON ORAL) 05-05 15:44: 36 Yes Take by mouth. [facility] fenofibrate 145 mg tablet 05-05 00:00: 00 Yes [id number] 145mg Take 1 tablet by mouth daily. [facility] Insulin Glargine (BASAGLAR KWIKPEN U-100 INSULIN) 100 unit/mL (3 mL) injection 05-05 00:00: 00 Yes [id number] 60U inject 60 Units under the skin daily. [facility] carvedilol 25 mg tablet 12-23 00:00: 00 Yes [id number] 25mg Take 1 tablet by mouth 2 (two) times daily with meals. [facility] atorvastati n 40 mg tablet 12-23 00:00: 00 Yes [id number] 40mg Take 1 tablet by mouth at bedtime. [facility] metformin ER 750 mg 24 hr tablet 12-23 00:00: 00 Yes 750mg Take 1 tablet by mouth 2 (two) times daily. [facility] losartan 50 mg tablet 12-23 00:00: 00 Yes 50mg Take 1 tablet by mouth daily. [facility] ibuprofen 800 mg tablet 09-02 00:00: 00 Yes 800mg Take 1 tablet by mouth every 8 (eight) hours as needed for Pain (scale 4-6). [facility] Niacin ER Niacin ER Yes Bee Millender 1 capsule with food [facility] Atorvastati n Calcium Atorvastati n Calcium Yes Bee Millender 1 tablet in evening [facility] Coreg Coreg Yes Bee Millender 1 tablet [facility] Mobic Mobic Yes Bee Millender 1 tablet [facility] Lofibra Lofibra Yes Bee Millender 1 tablet with food [facility] Indomethaci n Indomethaci n Yes Bee Millender 1 capsule with food or milk [facility] Creon Creon Yes Bee Millender not defined [facility] Metformin HCl Metformin HCl Yes Bee Millender 1 tablet with meals [facility] Lantus SoloStar Lantus SoloStar Yes Bee Millender 60 units [facility] Losartan Potassium Losartan Potassium Yes Bee Millender 1 tablet [facility] Aspir-Low Aspir-Low Yes Bee Millender 1 tablet [facility] Zyprexa Zyprexa Yes Bee Rgender 1 tablet [facility] Ketoprofen Ketoprofen Yes Bee Rgender 1 capsule Common [facility] Vital Signs Vital Name Observation Time Observation Value Comments Alfredo medrano Systolic blood pressure 2024-05-09 02:40:00 186 mm[Hg] [facility] Diastolic blood pressure 2024-05-09 02:40:00 123 mm[Hg] [facility] Heart rate 2024-05-09 02:40:00 108 /min [facility] Respiratory rate 2024-05-09 02:40:00 18 /min [facility] Oxygen saturation in Arterial blood by Pulse oximetry 2024-05-09 02:40:00 99 /min [facility] Body temperature 2024-05-09 01:15:00 36.44 Kristi [facility] Body weight 2024-05-09 01:15:00 [facility].059 [facility] BMI 2024-05-09 01:15:00 33.23 kg/m2 [facility] Systolic blood pressure 2022-11-23 18:58:00 134 mm[Hg] [facility] Diastolic blood pressure 2022-11-23 18:58:00 95 mm[Hg] [facility] Heart rate 2022-11-23 18:58:00 86 /min [facility] Oxygen saturation in Arterial blood by Pulse oximetry 2022-11-23 18:58:00 96 /min [facility] Body temperature 2022-11-23 18:57:00 36.67 Kristi [facility] Respiratory rate 2022-11-23 18:57:00 20 /min [facility] Body height 2022-11-23 18:57:00 175.3 cm [facility] Body weight 2022-11-23 18:57:00 113.399 kg [facility] BMI 2022-11-23 18:57:00 36.92 kg/m2 [facility] Systolic blood pressure 2022-10-12 19:42:00 127 mm[Hg] [facility] Diastolic blood pressure 2022-10-12 19:42:00 85 mm[Hg] [facility] Body temperature 2022-10-12 19:42:00 36.67 Kristi [facility] Respiratory rate 2022-10-12 19:42:00 18 /min [facility] Body height 2022-10-12 19:42:00 177.8 cm [facility] Body weight 2022-10-12 19:42:00 110.043 kg [facility] BMI 2022-10-12 19:42:00 34.81 kg/m2 [facility] Oxygen saturation in Arterial blood by Pulse oximetry 2022-10-12 19:42:00 96 /min [facility] Heart rate 2022-09-24 21:50:00 112 /min [facility] Oxygen saturation in Arterial blood by Pulse oximetry 2022-09-24 21:50:00 95 /min [facility] Systolic blood pressure 2022-09-24 21:45:00 137 mm[Hg] [facility] Diastolic blood pressure 2022-09-24 21:45:00 84 mm[Hg] [facility] Body temperature 2022-09-24 21:00:00 36.33 Kristi [facility] Respiratory rate 2022-09-24 21:00:00 18 /min [facility] Body height 2022-09-24 15:28:00 177.8 cm [facility] Body weight 2022-09-24 15:28:00 113.399 kg [facility] BMI 2022-09-24 15:28:00 35.87 kg/m2 [facility] Systolic blood pressure 2022-09-24 15:28:00 135 mm[Hg] [facility] Diastolic blood pressure 2022-09-24 15:28:00 93 mm[Hg] [facility] Heart rate 2022-09-24 15:28:00 70 /min [facility] Body temperature 2022-09-24 15:28:00 36.33 Kristi [facility] Respiratory rate 2022-09-24 15:28:00 16 /min [facility] Body height 2022-09-24 15:28:00 177.8 cm [facility] Body weight 2022-09-24 15:28:00 113.399 kg [facility] BMI 2022-09-24 15:28:00 35.87 kg/m2 [facility] Oxygen saturation in Arterial blood by Pulse oximetry 2022-09-24 15:28:00 96 /min [facility] Systolic blood pressure 2022-08-12 13:49:00 141 mm[Hg] [facility] Diastolic blood pressure 2022-08-12 13:49:00 97 mm[Hg] [facility] Heart rate 2022-08-12 13:48:00 78 /min [facility] Body temperature 2022-08-12 13:48:00 36.06 Kristi [facility] Respiratory rate 2022-08-12 13:48:00 18 /min [facility] Body height 2022-08-12 13:48:00 177.8 cm [facility] Body weight 2022-08-12 13:48:00 113.399 kg [facility] BMI 2022-08-12 13:48:00 35.87 kg/m2 [facility] Oxygen saturation in Arterial blood by Pulse oximetry 2022-08-12 13:48:00 97 /min [facility] Systolic blood pressure 2021-03-12 13:39:00 111 mm[Hg] [facility] Diastolic blood pressure 2021-03-12 13:39:00 70 mm[Hg] [facility] Heart rate 2021-03-12 13:39:00 78 /min [facility] Body temperature 2021-03-12 13:39:00 36.39 Kristi [facility] Respiratory rate 2021-03-12 13:39:00 18 /min [facility] Oxygen saturation in Arterial blood by Pulse oximetry 2021-03-12 13:39:00 95 /min [facility] Body weight 2021-03-10 11:46:00 112.492 [facility] BMI 2021-03-10 11:46:00 35.58 kg/m2 [facility] Body height 2021-02-26 01:58:00 177.8 cm [facility] Systolic blood pressure 2020-06-19 23:00:00 135 mm[Hg] [facility] Diastolic blood pressure 2020-06-19 23:00:00 95 mm[Hg] [facility] Heart rate 2020-06-19 23:00:00 92 /min [facility] Respiratory rate 2020-06-19 23:00:00 19 /min [facility] Oxygen saturation in Arterial blood by Pulse oximetry 2020-06-19 23:00:00 98 /min [facility] Body temperature 2020-06-19 21:08:00 36.56 Kristi [facility] Body weight 2020-06-19 21:08:00 90.719 kg [facility] BMI 2020-06-19 21:08:00 29.53 kg/m2 [facility] Systolic blood pressure 2020-06-11 22:40:00 153 mm[Hg] [facility] Diastolic blood pressure 2020-06-11 22:40:00 108 mm[Hg] [facility] Heart rate 2020-06-11 22:40:00 115 /min [facility] Body temperature 2020-06-11 22:40:00 37.33 Kristi [facility] Respiratory rate 2020-06-11 22:40:00 18 /min [facility] Body weight 2020-06-11 22:40:00 113.399 kg [facility] BMI 2020-06-11 22:40:00 36.92 kg/m2 [facility] Oxygen saturation in Arterial blood by Pulse oximetry 2020-06-11 22:40:00 98 /min [facility] Procedures Procedure Date / Time Performed Performing Clinician Source POCT GLUCOSE (AUTOMATED) 2022-09-24 21:11:00 Essence Landry [facility] POCT GLUCOSE (AUTOMATED) 2022-09-24 21:11:00 Essence Landry [facility] INGUINAL HERNIORRHAPHY 2022-09-24 17:17:00 Dheeraj Landry [facility] POCT GLUCOSE (AUTOMATED) 2022-09-24 15:35:00 Essence Landry [facility] POCT GLUCOSE (AUTOMATED) 2022-09-24 15:35:00 Essence Landry [facility] DAY SURGERY - ADC 2022-09-24 05:01:00 Doctor Anika [place]igned, [place] [facility] EXTERNAL PROVIDER RECORDS 2022-08-18 05:01:00 Do ctor Unassigned, [place] [facility] EXTERNAL PROVIDER RECORDS 2022-08-18 05:01:00 Do ctor Unassigned, [place] [facility] PATIENT TEACHING/INSTRUCTIONS- OUTPATIENT 2022-08-16 05:01:00 Doctor Unassigned, [place] [facility] DISCLOSURE AND CONSENT, MEDICAL AND SURGICAL PROCEDURES 2022-08-13 05:01:00 Doctor Unassigned, [place] [facility] DISCLOSURE AND CONSENT, MEDICAL AND SURGICAL PROCEDURES 2022-08-13 05:01:00 Doctor Unassigned, [place] [facility] EXTERNAL PROVIDER RECORDS 2022-08-10 05:01:00 Do ctor Unassigned, [place] [facility] XR CHEST 1 VW 2021-03-12 07:52:00 [facility] POCT GLUCOSE (AUTOMATED) 2021-03-12 03:03:00 Corby nahomi [facility] POCT GLUCOSE (AUTOMATED) 2021-03-11 22:42:00 Corby nahomi [facility] POCT GLUCOSE (AUTOMATED) 2021-03-11 17:48:00 Corby nahomi [facility] POCT GLUCOSE (AUTOMATED) 2021-03-11 14:06:00 Corby nahomi [facility] CBC WITH DIFF 2021-03-11 10:11:00 Fred Marquez [facility] POCT GLUCOSE (AUTOMATED) 2021-03-10 23:38:00 Corby nahomi [facility] POCT GLUCOSE (AUTOMATED) 2021-03-10 17:46:00 Corby [facility] POCT GLUCOSE (AUTOMATED) 2021-03-10 13:56:00 Corby nahomi [facility] MAGNESIUM 2021-03-10 11:45:00 Fred Marquez [facility] BASIC METABOLIC PANEL (NA, K, CL, CO2, GLUCOSE, BUN, CREATININE, CA) 2021-03-10 11:45:00 Fred Marquez [facility] CBC WITH DIFF 2021-03-10 11:45:00 Fred Marquez [facility] XR CHEST 1 VW 2021-03-10 02:30:49 Fred Marquez [facility] POCT GLUCOSE (AUTOMATED) 2021-03-09 22:40:00 Corby [facility] POCT GLUCOSE (AUTOMATED) 2021-03-09 17:10:00 Corby [facility] POCT GLUCOSE (AUTOMATED) 2021-03-09 13:43:00 Corby [facility] POCT GLUCOSE (AUTOMATED) 2021-03-09 03:25:00 Corby [facility] POCT GLUCOSE (AUTOMATED) 2021-03-08 22:35:00 Corby [facility] XR CHEST 1 VW 2021-03-08 21:55:38 Fred Marquez [facility] XR CHEST 1 VW 2021-03-08 18:47:03 Fred Marquez [facility] POCT GLUCOSE (AUTOMATED) 2021-03-08 17:23:00 Corby [facility] POCT GLUCOSE (AUTOMATED) 2021-03-08 13:23:00 Corby [facility] MAGNESIUM 2021-03-08 12:06:00 Fred Marquez [facility] BASIC METABOLIC PANEL (NA, K, CL, CO2, GLUCOSE, BUN, CREATININE, CA) 2021-03-08 12:06:00 Fred Marquez [facility] CBC WITH DIFF 2021-03-08 12:05:00 Fred Marquez [facility] POCT GLUCOSE (AUTOMATED) 2021-03-08 01:58:00 Corby [facility] POCT GLUCOSE (AUTOMATED) 2021-03-07 22:48:00 Corby [facility] POCT GLUCOSE (AUTOMATED) 2021-03-07 17:13:00 Corby [facility] POCT GLUCOSE (AUTOMATED) 2021-03-07 14:37:00 Coryb [facility] POCT GLUCOSE (AUTOMATED) 2021-03-06 22:23:00 Corby [facility] POCT GLUCOSE (AUTOMATED) 2021-03-06 18:13:00 Corby [facility] CT THORAX WO CONTRAST 2021-03-06 17:19:17 Jake Swanson [facility] POCT GLUCOSE (AUTOMATED) 2021-03-06 13:55:00 Corby [facility] POCT GLUCOSE (AUTOMATED) 2021-03-06 02:53:00 Corby [facility] POCT GLUCOSE (AUTOMATED) 2021-03-05 21:46:00 Corby [facility] XR CHEST 1 VW 2021-03-05 18:48:00 Fred Marquez [facility] POCT GLUCOSE (AUTOMATED) 2021-03-05 17:47:00 Corby [facility] POCT GLUCOSE (AUTOMATED) 2021-03-05 13:51:00 Corby nahomi [facility] MAGNESIUM 2021-03-05 10:03:00 Fred Marquez [facility] BASIC METABOLIC PANEL (NA, K, CL, CO2, GLUCOSE, BUN, CREATININE, CA) 2021-03-05 10:03:00 Fred Marquez [facility] CBC WITH DIFF 2021-03-05 10:02:00 Fred Marquez [facility] POCT GLUCOSE (AUTOMATED) 2021-03-04 22:05:00 Corby [facility] CYTO PLEURAL FLUID 2021-03-04 21:57:00 [facility] DIRECT COUNT 2021-03-04 21:55:00 Laury Swanson [facility] T.PROTEIN BODY FLUID 2021-03-04 21:54:00 Jake Swanson [facility] FUNGUS (ROUTINE) CULTURE 2021-03-04 21:54:00 Dasha Swanson [facility] BODY FLUID CULTURE(AEROBIC/ANAEROBIC ) 2021-03-04 21:54:00 Jake Swanson [facility] LDH TOTAL BODY FLUID 2021-03-04 21:54:00 Jake Swanson [facility] XR CHEST 1 VW 2021-03-04 21:41:43 Jake Swanson [facility] POCT GLUCOSE (AUTOMATED) 2021-03-04 17:11:00 Gorge Tavarez [facility] XR CHEST 1 VW 2021-03-04 16:12:48 Fred aMrquez [facility] MAGNESIUM 2021-03-04 15:25:00 Fred Marquez [facility] BASIC METABOLIC PANEL (NA, K, CL, CO2, GLUCOSE, BUN, CREATININE, CA) 2021-03-04 15:25:00 Fred Marquez [facility] POCT GLUCOSE (AUTOMATED) 2021-03-04 13:30:00 Gorge Tavarez [facility] LACTATE DEHYDROGENASE 2021-03-04 09:06:00 Jake Swanson [facility] CBC WITH DIFF 2021-03-04 09:06:00 Fred Marquez [facility] CT THORAX WO CONTRAST 2021-03-03 20:30:51 Josh Marquez [facility] POCT GLUCOSE (AUTOMATED) 2021-03-03 17:53:00 Gorge Tavarez [facility] POCT GLUCOSE (AUTOMATED) 2021-03-03 13:30:00 Gorge Tavarez [facility] PHOSPHORUS 2021-03-03 11:30:[address] MAGNESIUM 2021-03-03 11:30:00 Chaim Ji [facility] BASIC METABOLIC PANEL (NA, K, CL, CO2, GLUCOSE, BUN, CREATININE, CA) 2021-03-03 11:30:00 [facility] 2021-03-03 11:30:00 [facility] POCT GLUCOSE (AUTOMATED) 2021-03-03 01:52:00 Corby [facility] POCT GLUCOSE (AUTOMATED) 2021-03-02 22:35:00 Corby [facility] POCT GLUCOSE (AUTOMATED) 2021-03-02 17:42:00 Corby [facility] POCT GLUCOSE (AUTOMATED) 2021-03-02 13:35:00 Corby [facility] COMP. METABOLIC PANEL ([id number]) 2021-03-02 10:53:00 [facility] CBC WITH DIFF 2021-03-02 10:52:00 Chaim [facility] POCT GLUCOSE (AUTOMATED) 2021-03-02 03:55:00 Corby [facility] POCT GLUCOSE (AUTOMATED) 2021-03-01 22:54:00 Corby [facility] POCT GLUCOSE (AUTOMATED) 2021-03-01 17:34:00 Corby [facility] POCT GLUCOSE (AUTOMATED) 2021-03-01 14:28:00 Corby [facility] PHOSPHORUS 2021-03-01 09:22:[address] [facility] MAGNESIUM 2021-03-01 09:22:00 Chaim Ji [facility] BASIC METABOLIC PANEL (NA, K, CL, CO2, GLUCOSE, BUN, CREATININE, CA) 2021-03-01 09:22:00 Chaim Ji [facility] CBC WITH DIFF 2021-03-01 09:22:00 [facility] POCT GLUCOSE (AUTOMATED) 2021-03-01 00:42:00 Corby [facility] POCT GLUCOSE (AUTOMATED) 2021-02-28 22:04:00 Corby [facility] SPUTUM CULTURE 2021-02-28 17:09:[address] [facility] POCT GLUCOSE (AUTOMATED) 2021-02-28 16:45:00 Gorge Tavarez [facility] PNEUMOCOCCAL ANTIGEN 2021-02-28 14:11:00 Dana Ji [facility] POCT GLUCOSE (AUTOMATED) 2021-02-28 12:52:00 Corby nahomi [facility] COMP. METABOLIC PANEL ([id number]) 2021-02-28 11:09:00 Gorge Tavarez [facility] CBC WITH DIFF 2021-02-28 11:09:00 Chaim [facility] POCT GLUCOSE (AUTOMATED) 2021-02-28 01:52:00 Corby [facility] POCT GLUCOSE (AUTOMATED) 2021-02-27 21:46:00 Corby [facility] POCT GLUCOSE (AUTOMATED) 2021-02-27 16:40:00 Corby [facility] AFB CULTURE 2021-02-27 13:26:00 Gorge Tavarez [facility] MYCOBACTERIUM TUBERCULOSIS COMPLEX PCR 2021-02-27 13:26:00 Leigha Thorne [facility] POCT GLUCOSE (AUTOMATED) 2021-02-27 12:29:00 Corby [facility] POCT GLUCOSE (AUTOMATED) 2021-02-27 11:07:00 Corby nahomi [facility] PHOSPHORUS 2021-02-27 07:00:00 Chaim Ji [facility] MAGNESIUM 2021-02-27 07:00:00 Chaim Ji [facility] COMP. METABOLIC PANEL ([id number]) 2021-02-27 07:00:00 Gorge Tavarez [facility] VANCOMYCIN TROUGH 2021-02-27 07:00:00 Gorge Tavarez [facility] CBC WITH DIFF 2021-02-27 07:00:00 Ch[facility] POCT GLUCOSE (AUTOMATED) 2021-02-27 05:01:00 Gorge Tavarez [facility] POCT GLUCOSE (AUTOMATED) 2021-02-27 00:19:00 Gorge Tavarez [facility] TRANSTHORACIC ECHO (TTE) COMPLETE W/ CONTRAST 2021-02-26 18:22:00 Gorge Tavarez [facility] LACTATE DEHYDROGENASE 2021-02-26 17:07:00 Dash Tavarez [facility] POCT GLUCOSE (AUTOMATED) 2021-02-26 16:37:00 Gorge Tavarez [facility] MRSA / MSSA SCREEN BY PCRJAYDE 2021-02-26 16:16:00 Fara Bettencourt [facility] XR CHEST 1 VW 2021-02-26 15:58:57 Jake Swanson [facility] IR THORACENTESIS WITH IMAGING 2021-02-26 15:45:04 Corby nahomi [facility] AMYLASE BODY FLUID 2021-02-26 15:15:00 Corby nahomi [facility] GLUCOSE BODY FLUID 2021-02-26 15:15:00 Corby nahomi [facility] PH, BODY FLUID 2021-02-26 15:15:00 Gorge Tavarez [facility] T.PROTEIN BODY FLUID 2021-02-26 15:15:00 Kady Tavarez [facility] LDH TOTAL BODY FLUID 2021-02-26 15:15:00 Kady Tavarez [facility] BODY FLUID DIRECT COUNT 2021-02-26 15:15:00 Cruz Tavarez [facility] FUNGUS (ROUTINE) CULTURE 2021-02-26 15:15:00 Gorge Tavarez [facility] BODY FLUID CULTURE(AEROBIC/ANAEROBIC ) 2021-02-26 15:15:00 Corby nahomi [facility] CYTO PLEURAL FLUID 2021-02-26 15:15:00 Chaim Ji [facility] AFB CULTURE 2021-02-26 14:51:[address] [facility] MYCOBACTERIUM TUBERCULOSIS COMPLEX PCR 2021-02-26 14:51:00 Leigha Thorne [facility] POCT GLUCOSE (AUTOMATED) 2021-02-26 14:22:00 Gorge Tavarez [facility] PROTEIN TOTAL 2021-02-26 09:26:[address] [facility] URIC ACID 2021-02-26 09:26:00 Gorge Tavarez [facility] AMYLASE 2021-02-26 09:26:00 Gorge Tavarez [facility] MAGNESIUM 2021-02-26 09:26:[address] [facility] FERRITIN SERUM 2021-02-26 09:26:00 Gorge Tavarez [facility] TROPONIN I 2021-02-26 09:26:00 Gorge Tavarez [facility] THYROID STIMULATING HORMONE 2021-02-26 09:26:00 Gorge Tavarez [facility] COMP. METABOLIC PANEL ([id number]) 2021-02-26 09:26:00 Corby nahomi [facility] LIPID PANEL ([id number])(TOTAL CHOLESTEROL, TRIGLYCERIDES, HDL) 2021-02-26 09:26:00 Gorge Tavarez [facility] IRON PANEL 2021-02-26 09:26:00 Gorge Tavarez [facility] CBC WITH DIFF 2021-02-26 09:26:00 [facility] N-TERMINAL PRO-BNP 2021-02-26 09:26:00 Gorge Tavarez [facility] HIV 1/2 AG-AB WITH REFLEX 2021-02-26 09:26:00 Chaim Ji [facility] AC ABG + LACTIC ACID 2021-02-26 08:24:00 Kady Tavarez [facility] XR CHEST 1 VW 2021-02-26 06:28:24 Gorge Tavarez [facility] ACUTE CARE VENOUS BLOOD GAS 2021-02-26 06:21:00 Gorge Tavarez [facility] HB ECG ROUTINE & RHYTHM STRIP 2021-02-26 05:47:31 Gorge Tavarez [facility] BLOOD CULTURE SCREEN 2021-02-26 05:01:00 Kady Tavarez [facility] LACTATE DEHYDROGENASE 2021-02-26 05:01:00 Dash Tavarez [facility] VITAMIN B12, LEVEL 2021-02-26 05:01:00 Gorge Tavarez [facility] C-REACTIVE PROTEIN 2021-02-26 05:01:00 Gorge Tavarez [facility] TROPONIN I 2021-02-26 05:01:00 [facility] 2021-02-26 05:01:00 Gorge Tavarez [facility] VITAMIN D, 25-OH 2021-02-26 05:01:00 [facility] PROCALCITONIN 2021-02-26 05:01:00 Gorge Tavarez [facility] LACTIC ACID WHOLE BLOOD 2021-02-26 04:59:00 Cruz Tavarez [facility] POCT GLUCOSE (AUTOMATED) 2021-02-26 04:32:00 Gorge Tavarez [facility] CT ABDOMEN PELVIS W CONTRAST 2021-02-25 18:36:20 Franklin Chatman [facility] CT THORAX W CONTRAST 2021-02-25 18:36:20 Yadiel Chatman [facility] PHOSPHORUS 2021-02-25 16:33:00 Chaim Ji [facility] LIPASE 2021-02-25 16:33:[address] [facility] TROPONIN I 2021-02-25 16:33:00 Franklin Chatman [facility] COMP. METABOLIC PANEL ([id number]) 2021-02-25 16:33:00 Franklin Chatman [facility] SALICYLATE 2021-02-25 16:33:00 Franklin Chatman [facility] ETHANOL 2021-02-25 16:33:[address] [facility] DIFF CONSULT INTERPRETATION 2021-02-25 16:33:00 Gorge Tavarez [facility] CBC WITH DIFF 2021-02-25 16:33:00 Franklin Chatman [facility] GLYCOSYLATED HEMOGLOBIN (A1C) 2021-02-25 16:33:00 Gorge Tavarez [facility] PROTHROMBIN TIME / INR 2021-02-25 16:33:00 Troy Chatman [facility] ACTIVATED PARTIAL THRMPLAS ASYA 2021-02-25 16:33:00 Franklin Chatman [facility] N-TERMINAL PRO-BNP 2021-02-25 16:33:00 Franklin Chatman [facility] AC PANEL 21 + LACTIC ACID 2021-02-25 16:32:00 Franklin Chatman [facility] COVID-19 (ID NOW RAPID TESTING) 2021-02-25 16:27:00 Franklin Chatman [facility] LAB ONLY COVID INTERPRETATION 2021-02-25 16:27:00 Franklin Chatman [facility] URINALYSIS 2021-02-25 16:26:[address] [facility] URINE DRUG (IMMUNOASSAY) - COMPREHENSIVE DRUG SCREEN W/O REFLEX 2021-02-25 16:26:00 Franklin Chatman [facility] EKG-12 LEAD 2021-02-25 16:00:24 Franklin Chatman [facility] AUTHORIZATION FOR RELEASE OF PHI 2020-11-13 05:01:00 Doctor [place]assigned, [place] [facility] CT ABDOMEN PELVIS W CONTRAST 2020-06-19 22:50:39 Nikolay Schroeder [facility] BASIC METABOLIC PANEL (NA, K, CL, CO2, GLUCOSE, BUN, CREATININE, CA) 2020-06-19 21:56:00 Nikolay Schroeder [facility] CBC WITH DIFF 2020-06-19 21:56:[address] [facility] URINALYSIS 2020-06-19 21:56:00 [facility] COVID-[facility] (ID NOW RAPID TESTING) 2020-06-19 21:56:00 Nikolay Schroeder [facility] NOTICE OF PRIVACY PRACTICES 2020-06-19 21:00:39 Doctor Unassigned, [place] [facility] CONSENT/REFUSAL FOR DIAGNOSIS AND TREATMENT 2020-06-19 21:00:23 Doctor Unassigned, [place] [facility] Encounters Start Date/Time End Date/Time Encounter Type Admission Type Attending [facility] Facility Care Department Encounter ID Source 2021-02-22 01:27:58 Emergency [facility] [id number] [facility] 2021-02-21 23:50:41 Emergency [facility] [id number] [facility] [facility] 2024-05-08 19:17:00 2024-05-08 20:53:00 Emergency X XOCHITL FREEMAN [facility] ERT [id number] [facility] 2024-05-08 19:17:00 2024-05-08 20:53:00 Emergency Sharifaalexys Xochitl [facility] ([facility]) 1..840.114 350.1.13.10 4.2.7.2.686 [id number] 014 [id number] [facility] 2022-11-23 13:15:00 2022-11-23 13:30:00 Office Visit Frantz Essence [facility] 1.2.840.114 350.1.13.10 4.2.7.2.686 [id number] [facility] 2022-11-23 13:15:00 2022-11-23 13:15:00 Outpatient R ESSENCE LANDRY [facility] [id number] [facility] 2022-10-12 14:00:00 2022-10-12 14:15:00 Office Visit Landry, Essence [facility] 1.2.840.114 350.1.13.10 4.2.7.2.686 [id number] [facility] 2022-10-12 14:00:00 2022-10-12 14:00:00 Outpatient R ESSENCE LANDRY [facility] [id number] [facility] 2022-09-24 10:13:00 2022-09-24 17:05:00 Outpatient R ESSENCE LANDRY [facility] WILL [id number] [facility] 2022-09-24 10:13:00 2022-09-24 17:05:00 Hospital Encounter Essence Landry [facility] [place] 1.2.840.114 350.1.13.10 4.2.7.2.686 [id number] [id number] [facility] 2022-09-24 12:00:00 2022-09-24 15:06:00 [facility].2.[facility].114 350.1.13.10 4.2.7.2.686 [id number] [id number] [facility] 2022-09-24 00:00:00 2022-09-24 00:00:00 Orders Only Doctor Unassigned, [place] [facility] 1.2.840.114 350.1.13.10 4.2.7.2.686 [id number] 009 [id number] [facility] 2022-08-16 00:00:00 2022-08-16 00:00:00 Telephone Essence Landry [facility] 1.2.840.114 350.1.13.10 4.2.7.2.686 [id number] [facility] 2022-08-16 00:00:00 2022-08-16 00:00:00 Orders Only Doctor Unassigned, [place] [facility] 1.2840.114 350.1.13.10 4.2.7.2.686 [id number] 009 [id number] [facility] 2022-08-12 09:00:00 2022-08-12 11:17:17 Outpatient R ESSENCE LANDRY [facility] [id number] [facility] 2022-08-12 09:00:00 2022-08-12 11:17:17 Office Visit Essence Landry [facility] 1.84.114 350.1.13.10 4.2.7.2.686 [id number] [facility] 2022-08-10 15:00:00 2022-08-10 15:00:00 Outpatient R ESSENCE LANDRY [facility] [id number] [facility] 2022-08-10 00:00:00 2022-08-10 00:00:00 Orders Only Doctor Unassigned, [place] [facility] 1.84.114 350.1.13.10 4.2.7.2.686 [id number] [id number] [facility] 2021-03-13 00:00:00 2021-03-13 00:00:00 Transition of Care Laney Roy 1.84.114 350.1.13.10 4.2.7.2.686 [id number] [facility] 2021-02-25 11:10:00 2021-03-12 13:40:00 Inpatient X [facility] [id number] [facility] 2021-02-25 11:10:00 2021-03-12 13:40:00 Hospital Encounter Franklin Chatman Yaman Lakhani, Adnan [facility] 1.84.114 350.1.13.10 4.2.7.2.686 [id number] [facility] 2020-11-13 00:00:00 2020-11-13 00:00:00 Orders Only Doctor Unassigned, [place] [facility] 1.84.114 350.1.13.10 4.2.7.2.686 [id number] [id number] [facility] 2020-07-04 10:45:00 2020-07-04 10:45:00 Outpatient XOCHITL RANDALL [facility] [id number] [facility] 2020-06-19 15:11:00 2020-06-19 19:23:00 Emergency Nikolay Schroeder [facility] 1.2.840.114 350.1.13.10 4.2.7.2.686 [id number] [id number] [facility] 2020-06-19 00:00:00 2020-06-19 00:00:00 Orders Only Doctor Unassigned, [place] [facility] 1.2.840.114 350.1.13.10 4.2.7.2.686 [id number] 009 [id number] [facility] 2020-06-11 16:42:00 2020-06-11 18:10:00 Emergency [facility] 1.2.840.114 350.1.13.10 4.2.7.2.686 [id number] [facility] 2017-10-13 09:10:00 2017-10-13 09:10:00 Outpatient [facility] [id number] [facility] 2017-10-13 08:45:00 2017-10-13 08:45:00 Outpatient [facility] [id number] [facility] 2017-07-13 09:45:00 2017-07-13 09:45:[address] [facility] [id number] [facility] Results Test Description Test Time Test Comments Results Result Co mments Source [facility] GLUCOSE (AUTOMATED)2022-09-24 21:13:50* Test Item Value Reference Range Interpretation Comme nts POCT GLU (test code = 2543474936) 295 mg/dL 70-110 H Lab Interpretation (test cod e = 83552-9) Abnormal [facility] GLUCOSE (AUTOMATED)2022-09-24 15:38:09* Test Item Value Reference Range Interpretation Comme nts POCT GLU (test code = 6824230589) 284 mg/dL 70-110 H Lab Interpretation (test cod e = 65428-3) Abnormal [facility] GLUCOSE (AUTOMATED)2022-09-24 15:38:09* Test Item Value Reference Range Interpretation Comme nts POCT GLU (test code = 8019161676) 284 mg/dL 70-110 H Lab Interpretation (test cod e = 30407-8) Abnormal [facility] GLUCOSE (AUTOMATED)2021-03-12 03:12:44* Test Item Value Reference Range Interpretation Comme nts POCT GLU (test code = 6892012725) 110 mg/dL 70-110 Lab Interpretation (test cod e = 67203-1) Normal [facility] GLUCOSE (AUTOMATED)2021-03-11 22:45:29* Test Item Value Reference Range Interpretation Comme nts POCT GLU (test code = 1278228858) 123 mg/dL 70-110 H Lab Interpretation (test cod e = 79458-2) Abnormal [facility] GLUCOSE (AUTOMATED)2021-03-11 17:54:49* Test Item Value Reference Range Interpretation Comme nts POCT GLU (test code = 3394044338) 139 mg/dL 70-110 H Lab Interpretation (test cod e = 95811-2) Abnormal [facility] GLUCOSE (AUTOMATED)2021-03-11 14:20:36* Test Item Value Reference Range Interpretation Comme nts POCT GLU (test code = 3109496594) 109 mg/dL 70-110 Lab Interpretation (test cod e = 08127-5) Normal [facility] WITH [id number] 11:18:50* Test Item Value Reference Range Interpretation [...] 32.2 g/dL 31.2-35.0 RDW-SD (test code = 50529-2) 41.5 fL 38.5-51.6 RDW-CV (test code = 788-0) 12.6 % 12.1-15.4 PLT (test code = 777-3) See_Comment H [Automated messa ge] The system which generated this result transmitted reference range: 150 - 328 10*3/?L. The reference range was not used to interpret this result as normal/abnormal. MPV (test code = 21681-5) 9.8 fL 9.8-13.0 NRBC/100 WBC (test code = 0781849803) See_Comment [Automated [employer] ssage] The system which generated this result transmitted reference range: 0.0 - 10.0 /100 WBCs. The reference range was not used to interpret this result as normal/abnormal. NRBC x10^3 (test code = 6583448607) <0.01 See_Comment [Automated messa ge] The system which generated this result transmitted reference range: 10*3/?L. The reference range was not used to interpret this result as normal/abnormal. GRAN MAT (NEUT) % (test code = 770-8) 55.2 % IMM GRAN % (test code = 5432290649) 0.60 % LYMPH % (test code = 736-9) 31.4 % MONO % (test code = 5905-5) 9.3 % EOS % (test code = 713-8) 2.7 % BASO % (test code = 706-2) 0.8 % GRAN MAT x10^3(ANC) (test code = 4879477578) 3.44 10*3/uL 1.99-6.95 IMM GRAN x10^3 (test code = 3239925387) 0.04 10*3/uL 0.00-0.06 LYMPH x10^3 (test code = 731-0) 1.96 10*3/uL 1.09-3.23 MONO x10^3 (test code = 742-7) 0.58 10*3/uL 0.36-1.02 EOS x10^3 (test code = 711-2) 0.17 10*3/uL 0.06-0.53 BASO x10^3 (test code = 704-7) 0.05 10*3/uL 0.01-0.09 Lab Interpretation (test code = 82405-2) Abnormal [facility] GLUCOSE (AUTOMATED)2021-03-10 23:57:30* Test Item Value Reference Range Interpretation Comme nts POCT GLU (test code = 7385522674) 153 mg/dL 70-110 H Lab Interpretation (test cod e = 46762-6) Abnormal [facility] GLUCOSE (AUTOMATED)2021-03-10 17:53:36* Test Item Value Reference Range Interpretation Comme nts POCT GLU (test code = 3371113126) 139 mg/dL 70-110 H Lab Interpretation (test cod e = 42955-1) Abnormal [facility] GLUCOSE (AUTOMATED)2021-03-10 14:30:24* Test Item Value Reference Range Interpretation Comme nts POCT GLU (test code = 8547663702) 111 mg/dL 70-110 H Lab Interpretation (test cod e = 10592-1) Abnormal [facility] METABOLIC PANEL (NA, K, CL, CO2, GLUCOSE, BUN, CREATININE, CA)2021-03-10 13:38:22* Test Item Value Reference Range Interpretation Comme nts NA (test code = 6855764114) 134 mmol/L 135-145 L K (test code = 1142121623) 3.9 mmol/L 3.5-5.0 CL (test code = 5031360229) 103 mmol/L 98-108 CO2 TOTAL (test code = 6365809345) 28 mmol/L 23-31 AGAP (test code = 7223726476) 2-16 BUN (test code = 2995580232) 10 mg/dL 7-23 GLUCOSE (test code = 7492802962) 116 mg/dL 70-110 H CREATININE (test code = 1808173263) 0.54 mg/dL 0.60-1.25 L CALCIUM (test code = 8288743469) 8.9 mg/dL 8.6-10.6 eGFR (test code = 7087537097) mL/min/1.73m2 CATALINA (test code = CATALINA) Association [...] imaging tests). Lab Interpretation (test code = 12441-5) [facility] 13:38:22* Test Item Value Reference Range Interpretation Comme nts MAGNESIUM (test code = 4052853843) 2.2 mg/dL 1.7-2.4 Lab Interpretation (test cod e = 83727-6) [facility] [id number] 12:21:36* Test Item Value Reference Range Interpretation [...] 32.1 g/dL 31.2-35.0 RDW-SD (test code = 74006-5) 42.3 fL 38.5-51.6 RDW-CV (test code = 788-0) 12.9 % 12.1-15.4 PLT (test code = 777-3) See_Comment H [Automated messa ge] The system which generated this result transmitted reference range: 150 - 328 10*3/?L. The reference range was not used to interpret this result as normal/abnormal. MPV (test code = 02207-4) 9.9 fL 9.8-13.0 NRBC/100 WBC (test code = 0638015682) See_Comment [Automated [employer] ssage] The system which generated this result transmitted reference range: 0.0 - 10.0 /100 WBCs. The reference range was not used to interpret this result as normal/abnormal. NRBC x10^3 (test code = 8335782196) <0.01 See_Comment [Automated messa ge] The system which generated this result transmitted reference range: 10*3/?L. The reference range was not used to interpret this result as normal/abnormal. GRAN MAT (NEUT) % (test code = 770-8) 64.2 % IMM GRAN % (test code = 7891619420) 1.00 % LYMPH % (test code = 736-9) 23.0 % MONO % (test code = 5905-5) 9.8 % EOS % (test code = 713-8) 1.5 % BASO % (test code = 706-2) 0.5 % GRAN MAT x10^3(ANC) (test code = 6863037828) 6.50 10*3/uL 1.99-6.95 IMM GRAN x10^3 (test code = 5727204345) 0.10 10*3/uL 0.00-0.06 H LYMPH x10^3 (test code = 731-0) 2.33 10*3/uL 1.09-3.23 MONO x10^3 (test code = 742-7) 0.99 10*3/uL 0.36-1.02 EOS x10^3 (test code = 711-2) 0.15 10*3/uL 0.06-0.53 BASO x10^3 (test code = 704-7) 0.05 10*3/uL 0.01-0.09 Lab Interpretation (test code = 77978-8) Abnormal [facility] GLUCOSE (AUTOMATED)2021-03-09 22:46:56* Test Item Value Reference Range Interpretation Comme nts POCT GLU (test code = 0334776848) 119 mg/dL 70-110 H Lab Interpretation (test cod e = 98660-0) Abnormal [facility] GLUCOSE (AUTOMATED)2021-03-09 17:16:26* Test Item Value Reference Range Interpretation Comme nts POCT GLU (test code = 0894356543) 126 mg/dL 70-110 H Lab Interpretation (test cod e = 92731-6) Abnormal [facility] GLUCOSE (AUTOMATED)2021-03-09 13:50:01* Test Item Value Reference Range Interpretation Comme nts POCT GLU (test code = 1816584921) 110 mg/dL 70-110 Lab Interpretation (test cod e = 69206-2) Normal [facility] GLUCOSE (AUTOMATED)2021-03-09 03:32:40* Test Item Value Reference Range Interpretation Comme nts POCT GLU (test code = 5790245862) 145 mg/dL 70-110 H Notified Provide r Lab Interpretation (test code = 60205-2) Abnormal [facility] GLUCOSE (AUTOMATED)2021-03-08 22:44:07* Test Item Value Reference Range Interpretation Comme nts POCT GLU (test code = 8619357020) 135 mg/dL 70-110 H Lab Interpretation (test cod e = 48733-5) Abnormal [facility] GLUCOSE (AUTOMATED)2021-03-08 17:39:54* Test Item Value Reference Range Interpretation Comme nts POCT GLU (test code = 3329802208) 126 mg/dL 70-110 H Lab Interpretation (test cod e = 67985-8) Abnormal [facility] GLUCOSE (AUTOMATED)2021-03-08 13:26:14* Test Item Value Reference Range Interpretation Comme [facility] POCT GLU (test code = 6927125179) 122 mg/dL 70-110 H Lab Interpretation (test cod e = 35077-0) Abnormal [facility] METABOLIC PANEL (NA, K, CL, CO2, GLUCOSE, BUN, CREATININE, CA)2021-03-08 12:52:59* Test Item Value Reference Range Interpretation Comme [facility] NA (test code = 4629457882) 133 mmol/L 135-145 L K (test code = 0351284922) 4.5 mmol/L 3.5-5.0 CL (test code = 5076835190) 101 mmol/L 98-108 CO2 TOTAL (test code = 4219354853) 24 mmol/L 23-31 AGAP (test code = 6499509916) 2-16 BUN (test code = 1748547551) 12 mg/dL 7-23 GLUCOSE (test code = 9742635067) 136 mg/dL 70-110 H CREATININE (test code = 8556823698) 0.65 mg/dL 0.60-1.25 CALCIUM (test code = 7201420969) 8.9 mg/dL 8.6-10.6 eGFR (test code = 2195524809) mL/min/1.73m2 CATALINA (test code = CATALINA) Association [...] imaging tests). Lab Interpretation (test code = 31228-9) [facility] 12:52:59* Test Item Value Reference Range Interpretation Comme nts MAGNESIUM (test code = 2932671797) 2.2 mg/dL 1.7-2.4 Lab Interpretation (test cod e = 14784-4) Normal [facility] WITH [id number] 12:21:57* Test Item Value Reference Range Interpretation [...] 32.4 g/dL 31.2-35.0 RDW-SD (test code = 02185-9) 41.7 fL 38.5-51.6 RDW-CV (test code = 788-0) 12.9 % 12.1-15.4 PLT (test code = 777-3) See_Comment H [Automated messa ge] The system which generated this result transmitted reference range: 150 - 328 10*3/?L. The reference range was not used to interpret this result as normal/abnormal. MPV (test code = 65277-7) 10.0 fL 9.8-13.0 NRBC/100 WBC (test code = 3741305237) See_Comment [Automated [employer] ssage] The system which generated this result transmitted reference range: 0.0 - 10.0 /100 WBCs. The reference range was not used to interpret this result as normal/abnormal. NRBC x10^3 (test code = 3711932794) <0.01 See_Comment [Automated messa ge] The system which generated this result transmitted reference range: 10*3/?L. The reference range was not used to interpret this result as normal/abnormal. GRAN MAT (NEUT) % (test code = 770-8) 70.1 % IMM GRAN % (test code = 7258952460) 1.50 % LYMPH % (test code = 736-9) 18.8 % MONO % (test code = 5905-5) 7.8 % EOS % (test code = 713-8) 1.4 % BASO % (test code = 706-2) 0.4 % GRAN MAT x10^3(ANC) (test code = 9671288151) 8.11 10*3/uL 1.99-6.95 H IMM GRAN x10^3 (test code = 0547376246) 0.17 10*3/uL 0.00-0.06 H LYMPH x10^3 (test code = 731-0) 2.18 10*3/uL 1.09-3.23 MONO x10^3 (test code = 742-7) 0.90 10*3/uL 0.36-1.02 EOS x10^3 (test code = 711-2) 0.16 10*3/uL 0.06-0.53 BASO x10^3 (test code = 704-7) 0.05 10*3/uL 0.01-0.09 Lab Interpretation (test code = 67865-2) Abnormal [facility] GLUCOSE (AUTOMATED)2021-03-08 02:37:36* Test Item Value Reference Range Interpretation Comme nts POCT GLU (test code = 4550364282) 141 mg/dL 70-110 H Notified Provide r Lab Interpretation (test code = 36567-8) Abnormal [facility] GLUCOSE (AUTOMATED)2021-03-07 23:10:44* Test Item Value Reference Range Interpretation Comme nts POCT GLU (test code = 8700514160) 108 mg/dL 70-110 Lab Interpretation (test cod e = 29911-0) Normal [facility] GLUCOSE (AUTOMATED)2021-03-07 17:15:58* Test Item Value Reference Range Interpretation Comme nts POCT GLU (test code = 5460513144) 136 mg/dL 70-110 H Lab Interpretation (test cod e = 08105-1) Abnormal [facility] GLUCOSE (AUTOMATED)2021-03-07 14:40:51* Test Item Value Reference Range Interpretation Comme nts POCT GLU (test code = 1307304131) 127 mg/dL 70-110 H Lab Interpretation (test cod e = 49431-5) Abnormal [facility] GLUCOSE (AUTOMATED)2021-03-06 22:26:48* Test Item Value Reference Range Interpretation Comme nts POCT GLU (test code = 1578559270) 136 mg/dL 70-110 H Lab Interpretation (test cod e = 98023-8) Abnormal [facility] GLUCOSE (AUTOMATED)2021-03-06 18:19:30* Test Item Value Reference Range Interpretation Comme nts POCT GLU (test code = 2067323162) 115 mg/dL 70-110 H Lab Interpretation (test cod e = 10219-2) Abnormal [facility] GLUCOSE (AUTOMATED)2021-03-06 15:23:47* Test Item Value Reference Range Interpretation Comme nts POCT GLU (test code = 3763378811) 114 mg/dL 70-110 H Lab Interpretation (test cod e = 07786-7) Abnormal [facility] GLUCOSE (AUTOMATED)2021-03-06 06:27:55* Test Item Value Reference Range Interpretation Comme nts POCT GLU (test code = 6808539039) 136 mg/dL 70-110 H Lab Interpretation (test cod e = 62529-3) Abnormal [facility] GLUCOSE (AUTOMATED)2021-03-05 22:19:25* Test Item Value Reference Range Interpretation Comme nts POCT GLU (test code = 5138684312) 98 mg/dL 70-110 Lab Interpretation (test cod e = 24241-2) Normal [facility] GLUCOSE (AUTOMATED)2021-03-05 18:16:27* Test Item Value Reference Range Interpretation Comme nts POCT GLU (test code = 2063712992) 151 mg/dL 70-110 H Lab Interpretation (test cod e = 63922-2) Abnormal [facility] GLUCOSE (AUTOMATED)2021-03-05 14:28:55* Test Item Value Reference Range Interpretation Comme nts POCT GLU (test code = 9413634848) 123 mg/dL 70-110 H Lab Interpretation (test cod e = 46202-1) Abnormal [facility] WITH [id number] 12:41:13* Test Item Value Reference Range Interpretation [...] 31.7 g/dL 31.2-35.0 RDW-SD (test code = 85943-0) 44.4 fL 38.5-51.6 RDW-CV (test code = 788-0) 13.5 % 12.1-15.4 PLT (test code = 777-3) See_Comment H [Automated messa ge] The system which generated this result transmitted reference range: 150 - 328 10*3/?L. The reference range was not used to interpret this result as normal/abnormal. MPV (test code = 71542-3) 10.4 fL 9.8-13.0 NRBC/100 WBC (test code = 1514766921) See_Comment [Automated [employer] ssage] The system which generated this result transmitted reference range: 0.0 - 10.0 /100 WBCs. The reference range was not used to interpret this result as normal/abnormal. NRBC x10^3 (test code = 6600824293) <0.01 See_Comment [Automated messa ge] The system which generated this result transmitted reference range: 10*3/?L. The reference range was not used to interpret this result as normal/abnormal. GRAN MAT (NEUT) % (test code = 770-8) 70.2 % IMM GRAN % (test code = 1437820781) 3.40 % LYMPH % (test code = 736-9) 16.8 % MONO % (test code = 5905-5) 7.6 % EOS % (test code = 713-8) 1.3 % BASO % (test code = 706-2) 0.7 % GRAN MAT x10^3(ANC) (test code = 8186588757) 8.95 10*3/uL 1.99-6.95 H IMM GRAN x10^3 (test code = 0458469891) 0.43 10*3/uL 0.00-0.06 H LYMPH x10^3 (test code = 731-0) 2.14 10*3/uL 1.09-3.23 MONO x10^3 (test code = 742-7) 0.97 10*3/uL 0.36-1.02 EOS x10^3 (test code = 711-2) 0.17 10*3/uL 0.06-0.53 BASO x10^3 (test code = 704-7) 0.09 10*3/uL 0.01-0.09 Lab Interpretation (test code = 76496-7) Abnormal [facility] METABOLIC PANEL (NA, K, CL, CO2, GLUCOSE, BUN, CREATININE, CA)2021-03-05 11:23:26* Test Item Value Reference Range Interpretation Comme nts NA (test code = 8426156781) 135 mmol/L 135-145 K (test code = 5822500411) 4.2 mmol/L 3.5-5.0 CL (test code = 4323193433) 101 mmol/L 98-108 CO2 TOTAL (test code = 6653099947) 27 mmol/L 23-31 AGAP (test code = 9424101113) 2-16 BUN (test code = 2638404393) 9 mg/dL 7-23 GLUCOSE (test code = 8596916396) 135 mg/dL 70-110 H CREATININE (test code = 9858884727) 0.65 mg/dL 0.60-1.25 CALCIUM (test code = 5651603348) 8.8 mg/dL 8.6-10.6 eGFR (test code = 4438268132) mL/min/1.73m2 CATALINA (test code = CATALINA) Association [...] imaging tests). Lab Interpretation (test code = 61269-0) [facility]:23:26* Test Item Value Reference Range Interpretation Comme nts MAGNESIUM (test code = 7213116216) 2.5 mg/dL 1.7-2.4 H Lab Interpretation (test cod e = 09420-4) [id number] 01:18:05* Test Item Value Reference Range Interpretation Comme nts LDH (test code = 6754339105) 753 U/L 300-600 H Lab Interpretation (test cod e = 80224-0) Abnormal [facility] GLUCOSE (AUTOMATED)2021-03-04 22:09:48* Test Item Value Reference Range Interpretation Comme nts POCT GLU (test code = 5414108746) 135 mg/dL 70-110 H Lab Interpretation (test cod e = 15284-7) Abnormal [facility] GLUCOSE (AUTOMATED)2021-03-04 17:24:54* Test Item Value Reference Range Interpretation Comme nts POCT GLU (test code = 3833505063) 160 mg/dL 70-110 H Lab Interpretation (test cod e = 74935-1) [facility] 17:19:53* Test Item Value Reference Range Interpretation Comme nts MAGNESIUM (test code = 6592777393) 2.4 mg/dL 1.7-2.4 Lab Interpretation (test cod e = 93837-9) Normal [facility] METABOLIC PANEL (NA, K, CL, CO2, GLUCOSE, BUN, CREATININE, CA)2021-03-04 17:19:52* Test Item Value Reference Range Interpretation Comme nts NA (test code = 8429182546) 136 mmol/L 135-145 K (test code = 4869873066) 4.6 mmol/L 3.5-5.0 CL (test code = 3363712169) 101 mmol/L 98-108 CO2 TOTAL (test code = 2515201999) 27 mmol/L 23-31 AGAP (test code = 5593473532) 2-16 BUN (test code = 5123139569) 8 mg/dL 7-23 GLUCOSE (test code = 8730038870) 125 mg/dL 70-110 H CREATININE (test code = 2279603593) 0.62 mg/dL 0.60-1.25 CALCIUM (test code = 7930859935) 8.8 mg/dL 8.6-10.6 eGFR (test code = 9077699477) mL/min/1.73m2 CATALINA (test code = CATALINA) Association [...] imaging tests). Lab Interpretation (test code = 70422-0) Abnormal [facility] WITH [id number] 15:00:40* Test Item Value Reference Range Interpretation [...] 31.6 g/dL 31.2-35.0 RDW-SD (test code = 04333-3) 45.4 fL 38.5-51.6 RDW-CV (test code = 788-0) 13.7 % 12.1-15.4 PLT (test code = 777-3) See_Comment H [Automated message] The system which generated this result transmitted reference range: 150 - 328 10*3/?L. The reference range was not used to interpret this result as normal/abnormal. MPV (test code = 61279-5) 10.5 fL 9.8-13.0 NRBC/100 WBC (test code = 0479361243) See_Comment [Automated message] The system which generated this result transmitted reference range: 0.0 - 10.0 /100 WBCs. The reference range was not used to interpret this result as normal/abnormal. NRBC x10^3 (test code = 6055039919) <0.01 See_Comment [Automated message] The system which generated this result transmitted reference range: 10*3/?L. The reference range was not used to interpret this result as normal/abnormal. GRAN MAT (NEUT) % (test code = 770-8) 69.9 % IMM GRAN % (test code = 7243715325) 5.20 % LYMPH % (test code = 736-9) 15.4 % MONO % (test code = 5905-5) 8.0 % EOS % (test code = 713-8) 1.0 % BASO % (test code = 706-2) 0.5 % GRAN MAT x10^3(ANC) (test code = 9707335563) 10.31 10*3/uL 1.99-6.95 H IMM GRAN x10^3 (test code = 2199513345) 0.77 10*3/uL 0.00-0.06 H LYMPH x10^3 (test [...] result as normal/abnormal. BANDS (test code = 8048358765) Increased A REACT LYMPHS (test code = 1539936011) Rare TOXIC CHANGES (test code = 803-7) Present A GIANT PLATELETS (test code = 5908-9) Present See_Comment A [Automated message] The system which generated this result transmitted reference range: (none). The reference range was not used to interpret this result as normal/abnormal. Lab Interpretation (test code = 97721-1) Abnormal [facility] GLUCOSE (AUTOMATED)2021-03-04 13:51:33* Test Item Value Reference Range Interpretation Comme nts POCT GLU (test code = 8048126630) 141 mg/dL 70-110 H Lab Interpretation (test cod e = 02794-2) [facility] 18:21:58* Test Item Value Reference Range Interpretation Comme nts POCT GLU (test code = 1289109928) 190 mg/dL 70-110 H Lab Interpretation (test cod e = 74392-5) Abnormal [facility] WITH [id number] 14:30:04* Test Item Value Reference Range Interpretation [...] 33.1 g/dL 31.2-35.0 RDW-SD (test code = 33470-5) 44.2 fL 38.5-51.6 RDW-CV (test code = 788-0) 13.5 % 12.1-15.4 PLT (test code = 777-3) See_Comment H [Automated messa ge] The system which generated this result transmitted reference range: 150 - 328 10*3/?L. The reference range was not used to interpret this result as normal/abnormal. MPV (test code = 01872-9) 10.2 fL 9.8-13.0 NRBC/100 WBC (test code = 6822089052) See_Comment [Automated me ssage] The system which generated this result transmitted reference range: 0.0 - 10.0 /100 WBCs. The reference range was not used to interpret this result as normal/abnormal. NRBC x10^3 (test code = 2322981046) <0.01 See_Comment [Automated messa ge] The system which generated this result transmitted reference range: 10*3/?L. The reference range was not used to interpret this result as normal/abnormal. GRAN MAT (NEUT) % (test code = 770-8) 70.9 % IMM GRAN % (test code = 9758331337) 4.70 % LYMPH % (test code = 736-9) 13.5 % MONO % (test code = 5905-5) 9.2 % EOS % (test code = 713-8) 1.1 % BASO % (test code = 706-2) 0.6 % GRAN MAT x10^3(ANC) (test code = 2252221325) 9.90 10*3/uL 1.99-6.95 H IMM GRAN x10^3 (test code = 0967770074) 0.65 10*3/uL 0.00-0.06 H LYMPH x10^3 (test code = 731-0) 1.88 10*3/uL 1.09-3.23 MONO x10^3 (test code = 742-7) 1.28 10*3/uL 0.36-1.02 H EOS x10^3 (test code = 711-2) 0.15 10*3/uL 0.06-0.53 BASO x10^3 (test code = 704-7) 0.08 10*3/uL 0.01-0.09 BANDS (test code = 2979793243) Increased A TOXIC CHANGES (test code = 803-7) Present A Lab Interpretation (test code = 87885-0) [facility] 13:45:39* Test Item Value Reference Range Interpretation Comme nts POCT GLU (test code = 1442959685) 144 mg/dL 70-110 H Lab Interpretation (test cod e = 22745-1) [facility] 13:32:13* Test Item Value Reference Range Interpretation Comme nts MAGNESIUM (test code = 6388355164) 2.3 mg/dL 1.7-2.4 Lab Interpretation (test cod e = 57663-2) Normal [facility] METABOLIC PANEL (NA, K, CL, CO2, GLUCOSE, BUN, CREATININE, CA)2021-03-03 13:32:02* Test Item Value Reference Range Interpretation Comme nts NA (test code = 8282685622) 136 mmol/L 135-145 K (test code = 7581464297) 4.6 mmol/L 3.5-5.0 CL (test code = 4555417418) 104 mmol/L 98-108 CO2 TOTAL (test code = 3321236238) 24 mmol/L 23-31 AGAP (test code = 6320704949) 2-16 BUN (test code = 3006230827) 6 mg/dL 7-23 L GLUCOSE (test code = 5333008936) 134 mg/dL 70-110 H CREATININE (test code = 1383483625) 0.56 mg/dL 0.60-1.25 L CALCIUM (test code = 5336986695) 8.5 mg/dL 8.6-10.6 L eGFR (test code = 0542870183) mL/min/1.73m2 CATALINA (test code = CATALINA) Association [...] imaging tests). Lab Interpretation (test code = 33278-1) [facility] 13:31:50* Test Item Value Reference Range Interpretation Comme nts PHOSPHORUS (test code = 1919971169) 3.9 mg/dL 2.5-5.0 Lab Interpretation (test cod e = 94957-9) Normal [facility] [id number] 06:01:53* Test Item Value Reference Range Interpretation Comme nts Blood Culture-Aerobic (test code = 44525-9) No organisms isolated No growth Previous preliminary [...] 0101 CDT Blood Culture-Anaerobic (test code = 37657-2) No organisms isolated No growth Previous preliminary [...] 0101 CDT Lab Interpretation (test code = 06829-8) Normal [facility] [id number] 06:01:53* Test Item Value Reference Range Interpretation Comme nts Blood Culture-Aerobic (test code = 54071-2) No organisms isolated No growth Previous preliminary [...] 0101 CDT Blood Culture-Anaerobic (test code = 24852-9) No organisms isolated No growth Previous preliminary [...] 0101 CDT Lab Interpretation (test code = 16811-9) Normal [facility] GLUCOSE (AUTOMATED)2021-03-03 02:26:32* Test Item Value Reference Range Interpretation Comme nts POCT GLU (test code = 2538971405) 155 mg/dL 70-110 H Notified Provide r Lab Interpretation (test code = 50248-0) Abnormal [facility] GLUCOSE (AUTOMATED)2021-03-02 22:38:32* Test Item Value Reference Range Interpretation Comme nts POCT GLU (test code = 7767489251) 122 mg/dL 70-110 H Lab Interpretation (test cod e = 74313-8) Abnormal [facility] GLUCOSE (AUTOMATED)2021-03-02 17:46:25* Test Item Value Reference Range Interpretation Comme nts POCT GLU (test code = 8746282105) 125 mg/dL 70-110 H Lab Interpretation (test cod e = 57256-3) [facility]normal [facility]SPUT[facility] [id number] 16:40:15* Test Item Value Reference Range Interpretation Comme nts SPUTUM CULTURE (test code = 622-1) 2+ Respiratory jeff: Commensal upper respiratory microorganisms only. Gram stain (test code = 664-3) Occasional (Rare) Mononuclear cells CATALINA (test code = CATALINA) Bacterial pathogens associated with lower respiratory infections were not identified, which include Pseudomonas aeruginosa and Staphylococcus aureus (MRSA or MSSA). [facility] WITH [id number] 15:16:38* Test Item Value Reference Range Interpretation [...] 32.9 g/dL 31.2-35.0 RDW-SD (test code = 53999-1) 44.9 fL 38.5-51.6 RDW-CV (test code = 788-0) 13.5 % 12.1-15.4 PLT (test code = 777-3) See_Comment [Automated messa ge] The system which generated this result transmitted reference range: 150 - 328 10*3/?L. The reference range was not used to interpret this result as normal/abnormal. MPV (test code = 97958-2) 10.9 fL 9.8-13.0 NRBC/100 WBC (test code = 5862441987) See_Comment [Automated [employer] ssage] The system which generated this result transmitted reference range: 0.0 - 10.0 /100 WBCs. The reference range was not used to interpret this result as normal/abnormal. NRBC x10^3 (test code = 6239665091) <0.01 See_Comment [Automated messa ge] The system which generated this result transmitted reference range: 10*3/?L. The reference range was not used to interpret this result as normal/abnormal. GRAN MAT (NEUT) % (test code = 770-8) 73.0 % IMM GRAN % (test code = 4450579293) 2.80 % LYMPH % (test code = 736-9) 12.6 % MONO % (test code = 5905-5) 9.4 % EOS % (test code = 713-8) 1.7 % BASO % (test code = 706-2) 0.5 % GRAN MAT x10^3(ANC) (test code = 8697094998) 9.28 10*3/uL 1.99-6.95 H IMM GRAN x10^3 (test code = 2687524043) 0.36 10*3/uL 0.00-0.06 H LYMPH x10^3 (test code = 731-0) 1.60 10*3/uL 1.09-3.23 MONO x10^3 (test code = 742-7) 1.20 10*3/uL 0.36-1.02 H EOS x10^3 (test code = 711-2) 0.22 10*3/uL 0.06-0.53 BASO x10^3 (test code = 704-7) 0.07 10*3/uL 0.01-0.09 ROULEAUX (test code = 7797-4) Present See_Comment A [Automated [employer] ge] The system which generated this result transmitted reference range: (none). The reference range was not used to interpret this result as normal/abnormal. BANDS (test code = 4185040644) Increased A DOHLE BODIES (test code = 7792-5) Present A REACT LYMPHS (test code = 8345091344) Rare TOXIC CHANGES (test code = 803-7) Present A Lab Interpretation (test code = 08762-8) Abnormal [facility] GLUCOSE (AUTOMATED)2021-03-02 13:57:34* Test Item Value Reference Range Interpretation Comme nts POCT GLU (test code = 1012218950) 136 mg/dL 70-110 H Lab Interpretation (test cod e = 39928-9) Abnormal [facility] GLUCOSE (AUTOMATED)2021-03-02 13:38:29* Test Item Value Reference Range Interpretation Comme nts POCT GLU (test code = 0648709661) 138 mg/dL 70-110 H Lab Interpretation (test cod e = 41233-3) Abnormal [facility]. METABOLIC PANEL (06863)2021-03-02 12:01:14* Test Item Value Reference Range Interpretation Comme nts NA (test code = 2231476885) 139 mmol/L 135-145 K (test code = 4458490734) 3.2 mmol/L 3.5-5.0 L CL (test code = 9696988159) 113 mmol/L 98-108 H CO2 TOTAL (test code = 5965844875) 21 mmol/L 23-31 L AGAP (test code = 4922955878) 2-16 BUN (test code = 8140618243) 4 mg/dL 7-23 L GLUCOSE (test code = 0830064710) 102 mg/dL 70-110 CREATININE (test code = 6569541636) 0.43 mg/dL 0.60-1.25 L TOTAL BILI (test code = 8553327557) 0.6 mg/dL 0.1-1.1 CALCIUM (test code = 3552761899) 6.2 mg/dL 8.6-10.6 L T PROTEIN (test code = 1686289027) 4.4 g/dL 6.3-8.2 L ALBUMIN (test code = 6892761173) 2.0 g/dL 3.5-5.0 L ALK PHOS (test code = 3092208663) 131 U/L 34-122 H ALTv (test code = 1742-6) 23 U/L 5-50 AST(SGOT) (test code = 4799927730) 29 U/L 13-40 eGFR (test code = 0626981352) mL/min/1.73m2 CATALINA (test code = CATALINA) Association [...] imaging tests). Lab Interpretation (test code = 13645-8) Abnormal [facility] GLUCOSE (AUTOMATED)2021-03-02 04:00:42* Test Item Value Reference Range Interpretation Comme nts POCT GLU (test code = 7048549641) 186 mg/dL 70-110 H Lab Interpretation (test cod e = 60570-3) Abnormal [facility] GLUCOSE (AUTOMATED)2021-03-01 23:00:33* Test Item Value Reference Range Interpretation Comme nts POCT GLU (test code = 5899811281) 130 mg/dL 70-110 H Lab Interpretation (test cod e = 87615-6) Abnormal [facility] GLUCOSE (AUTOMATED)2021-03-01 18:02:15* Test Item Value Reference Range Interpretation Comme nts POCT GLU (test code = 7167626162) 166 mg/dL 70-110 H Lab Interpretation (test cod e = 64410-9) [facility] 11:26:40* Test Item Value Reference Range Interpretation Comme nts MAGNESIUM (test code = 1795143443) 2.4 mg/dL 1.7-2.4 Lab Interpretation (test cod e = 91522-3) Normal [facility] METABOLIC PANEL (NA, K, CL, CO2, GLUCOSE, BUN, CREATININE, CA)2021-03-01 11:26:19* Test Item Value Reference Range Interpretation Comme nts NA (test code = 7775277370) 134 mmol/L 135-145 L K (test code = 7618325740) 4.0 mmol/L 3.5-5.0 CL (test code = 7714229928) 99 mmol/L 98-108 CO2 TOTAL (test code = 7791371345) 26 mmol/L 23-31 AGAP (test code = 1340102636) 2-16 BUN (test code = 7847315243) 7 mg/dL 7-23 GLUCOSE (test code = 8175674914) 161 mg/dL 70-110 H CREATININE (test code = 0466455375) 0.69 mg/dL 0.60-1.25 CALCIUM (test code = 2596645818) 8.4 mg/dL 8.6-10.6 L eGFR (test code = 6513034298) mL/min/1.73m2 CATALINA (test code = CATALINA) Association [...] imaging tests). Lab Interpretation (test code = 51987-1) [facility] 11:26:19* Test Item Value Reference Range Interpretation Comme nts PHOSPHORUS (test code = 7593530528) 3.2 mg/dL 2.5-5.0 Lab Interpretation (test cod e = 03363-0) [facility] [id number] 11:16:45* Test Item Value Reference Range Interpretation [...] 32.9 g/dL 31.2-35.0 RDW-SD (test code = 84339-5) 42.1 fL 38.5-51.6 RDW-CV (test code = 788-0) 13.2 % 12.1-15.4 PLT (test code = 777-3) See_Comment H [Automated message] The system which generated this result transmitted reference range: 150 - 328 10*3/?L. The reference range was not used to interpret this result as normal/abnormal. MPV (test code = 78238-7) 10.3 fL 9.8-13.0 NRBC/100 WBC (test code = 7040365945) See_Comment [Automated message] The system which generated this result transmitted reference range: 0.0 - 10.0 /100 WBCs. The reference range was not used to interpret this result as normal/abnormal. NRBC x10^3 (test code = 0661793546) <0.01 See_Comment [Automated message] The system which generated this result transmitted reference range: 10*3/?L. The reference range was not used to interpret this result as normal/abnormal. GRAN MAT (NEUT) % (test code = 770-8) 78.5 % IMM GRAN % (test code = 6886604310) 1.60 % LYMPH % (test code = 736-9) 8.7 % MONO % (test code = 5905-5) 9.8 % EOS % (test code = 713-8) 1.0 % BASO % (test code = 706-2) 0.4 % GRAN MAT x10^3(ANC) (test code = 9298023768) 12.22 10*3/uL 1.99-6.95 H IMM GRAN x10^3 (test code = 6014669968) 0.25 10*3/uL 0.00-0.06 H LYMPH x10^3 (test code = 731-0) 1.36 10*3/uL 1.09-3.23 MONO x10^3 (test code = 742-7) 1.53 10*3/uL 0.36-1.02 H EOS x10^3 (test code = 711-2) 0.15 10*3/uL 0.06-0.53 BASO x10^3 (test code = 704-7) 0.07 10*3/uL 0.01-0.09 BANDS (test code = 3135667898) Increased A TOXIC CHANGES (test code = 803-7) Present A GIANT PLATELETS (test code = 5908-9) Present See_Comment A [Automated message] The system which generated this result transmitted reference range: (none). The reference range was not used to interpret this result as normal/abnormal. Lab Interpretation (test code = 54979-8) Abnormal [facility] GLUCOSE (AUTOMATED)2021-03-01 01:33:17* Test Item Value Reference Range Interpretation Comme nts POCT GLU (test code = 2544677992) 173 mg/dL 70-110 H Lab Interpretation (test cod e = 07192-0) Abnormal [facility] GLUCOSE (AUTOMATED)2021-02-28 22:14:15* Test Item Value Reference Range Interpretation Comme nts POCT GLU (test code = 0989644339) 136 mg/dL 70-110 H Lab Interpretation (test cod e = 96890-5) Abnormal [facility] GLUCOSE (AUTOMATED)2021-02-28 22:10:43* Test Item Value Reference Range Interpretation Comme nts POCT GLU (test code = 1612281159) 158 mg/dL 70-110 H Lab Interpretation (test cod e = 24165-2) Abnormal [facility] GLUCOSE (AUTOMATED)2021-02-28 16:49:37* Test Item Value Reference Range Interpretation Comme nts POCT GLU (test code = 0470027382) 161 mg/dL 70-110 H Lab Interpretation (test cod e = 66824-6) Abnormal [facility] WITH [id number] 13:12:42* Test Item Value Reference Range Interpretation [...] 32.4 g/dL 31.2-35.0 RDW-SD (test code = 17835-4) 42.9 fL 38.5-51.6 RDW-CV (test code = 788-0) 13.0 % 12.1-15.4 PLT (test code = 777-3) See_Comment [Automated message] The system which generated this result transmitted reference range: 150 - 328 10*3/?L. The reference range was not used to interpret this result as normal/abnormal. MPV (test code = 00520-8) 10.1 fL 9.8-13.0 NRBC/100 WBC (test code = 3067193107) See_Comment [Automated message] The system which generated this result transmitted reference range: 0.0 - 10.0 /100 WBCs. The reference range was not used to interpret this result as normal/abnormal. NRBC x10^3 (test code = 5093665716) <0.01 See_Comment [Automated message] The system which generated this result transmitted reference range: 10*3/?L. The reference range was not used to interpret this result as normal/abnormal. GRAN MAT (NEUT) % (test code = 770-8) 77.6 % IMM GRAN % (test code = 3921857202) 1.40 % LYMPH % (test code = 736-9) 9.7 % MONO % (test code = 5905-5) 10.1 % EOS % (test code = 713-8) 0.7 % BASO % (test code = 706-2) 0.5 % GRAN MAT x10^3(ANC) (test code = 5912668997) 11.63 10*3/uL 1.99-6.95 H IMM GRAN x10^3 (test code = 9286430273) 0.21 10*3/uL 0.00-0.06 H LYMPH x10^3 (test [...] result as normal/abnormal. BANDS (test code = 1192962056) Increased A TOXIC CHANGES (test code = 803-7) Present A GIANT PLATELETS (test code = 5908-9) Present See_Comment A [Automated message] The system which generated this result transmitted reference range: (none). The reference range was not used to interpret this result as normal/abnormal. Lab Interpretation (test code = 75226-3) Abnormal [facility]. METABOLIC PANEL (08798)2021-02-28 12:13:05* Test Item Value Reference Range Interpretation Comme nts NA (test code = 3721772254) 133 mmol/L 135-145 L K (test code = 3128967041) 4.2 mmol/L 3.5-5.0 CL (test code = 2466804959) 100 mmol/L 98-108 CO2 TOTAL (test code = 1133417931) 26 mmol/L 23-31 AGAP (test code = 2136006177) 2-16 BUN (test code = 5197368324) 8 mg/dL 7-23 GLUCOSE (test code = 7909884887) 143 mg/dL 70-110 H CREATININE (test code = 4615809577) 0.70 mg/dL 0.60-1.25 TOTAL BILI (test code = 7476030818) 1.4 mg/dL 0.1-1.1 H CALCIUM (test code = 4948456344) 8.5 mg/dL 8.6-10.6 L T PROTEIN (test code = 6127083981) 5.7 g/dL 6.3-8.2 L ALBUMIN (test code = 3752334679) 3.0 g/dL 3.5-5.0 L ALK PHOS (test code = 9679061887) 111 U/L 34-122 ALTv (test code = 1742-6) 16 U/L 5-50 AST(SGOT) (test code = 1907798531) 20 U/L 13-40 eGFR (test code = 1014355778) mL/min/1.73m2 CATALINA (test code = CATALINA) Association [...] imaging tests). Lab Interpretation (test code = 48146-5) Abnormal [facility] GLUCOSE (AUTOMATED)2021-02-28 02:31:48* Test Item Value Reference Range Interpretation Comme nts POCT GLU (test code = 0913385121) 206 mg/dL 70-110 H Lab Interpretation (test cod e = 42286-3) [facility] 2021-02-28 00:49:25* Test Item Value Reference Range Interpretation Comme nts Mycobacterium tuberculosis D NA (test code = 36215-8) Negative Negative Lab Interpretation (test cod e = 77885-1) Normal [facility] GLUCOSE (AUTOMATED)2021-02-27 22:30:13* Test Item Value Reference Range Interpretation Comme nts POCT GLU (test code = 5979802215) 160 mg/dL 70-110 H Lab Interpretation (test cod e = 49822-6) [facility]normal [facility] 2021-02-27 18:36:53* Test Item Value Reference Range Interpretation Comme nts Mycobacterium tuberculosis DNA (test code = 16130-2) Negative Negative CATALINA (test code = CATALINA) MTB PCR testing delayed due to inadequate specimen. Lab Interpretation (test code = 54127-8) Normal [facility] GLUCOSE (AUTOMATED)2021-02-27 16:47:54* Test Item Value Reference Range Interpretation Comme nts POCT GLU (test code = 9871814190) 185 mg/dL 70-110 H Lab Interpretation (test cod e = 40748-3) Abnormal [facility] GLUCOSE (AUTOMATED)2021-02-27 13:10:59* Test Item Value Reference Range Interpretation Comme nts POCT GLU (test code = 0227932090) 140 mg/dL 70-110 H Lab Interpretation (test cod e = 18664-1) Abnormal [facility] GLUCOSE (AUTOMATED)2021-02-27 11:09:43* Test Item Value Reference Range Interpretation Comme nts POCT GLU (test code = 4084731414) 120 mg/dL 70-110 H Lab Interpretation (test cod e = 97991-0) [facility]normal [facility] - Draw within 30 minutes prior to 3RD dose.2021-02-27 08:29:58* Test Item Value Reference Range Interpretation Comme nts VANCO TROUGH (test code = 4744136526) <5.0 10.0-20.0 L CATALINA (test code = CATALINA) Toxic Range: ?>20 ug/mL 15-20 ug/mL is recommended for severe infection or when Vancomycin TYLER is greater than or equal to 2. Lab Interpretation (test code = 54082-8) Abnormal [facility]. METABOLIC PANEL (17373)2021-02-27 08:17:18* Test Item Value Reference Range Interpretation Comme nts NA (test code = 7659437514) 132 mmol/L 135-145 L K (test code = 9721309577) 4.2 mmol/L 3.5-5.0 CL (test code = 4762379010) 99 mmol/L 98-108 CO2 TOTAL (test code = 9160430701) 24 mmol/L 23-31 AGAP (test code = 1129086077) 2-16 BUN (test code = 7310542198) 10 mg/dL 7-23 GLUCOSE (test code = 8486739252) 137 mg/dL 70-110 H CREATININE (test code = 0127487589) 0.81 mg/dL 0.60-1.25 TOTAL BILI (test code = 8867795275) 1.5 mg/dL 0.1-1.1 H CALCIUM (test code = 2349251034) 8.6 mg/dL 8.6-10.6 T PROTEIN (test code = 2157690645) 6.1 g/dL 6.3-8.2 L ALBUMIN (test code = 5718890564) 3.3 g/dL 3.5-5.0 L ALK PHOS (test code = 2566523259) 94 U/L 34-122 ALTv (test code = 1742-6) 19 U/L 5-50 AST(SGOT) (test code = 9449831877) 16 U/L 13-40 eGFR (test code = 5275388495) mL/min/1.73m2 CATALINA (test code = CATALINA) Association [...] imaging tests). Lab Interpretation (test code = 19229-7) [facility] 08:17:18* Test Item Value Reference Range Interpretation Comme nts MAGNESIUM (test code = 6854968889) 2.1 mg/dL 1.7-2.4 Lab Interpretation (test cod e = 71274-9) Normal [facility] 08:16:57* Test Item Value Reference Range Interpretation Comme nts PHOSPHORUS (test code = 6958890030) 2.6 mg/dL 2.5-5.0 Lab Interpretation (test cod e = 12138-4) Normal [facility] WITH [id number] 07:51:35* Test Item Value Reference Range Interpretation [...] 32.3 g/dL 31.2-35.0 RDW-SD (test code = 67234-3) 42.4 fL 38.5-51.6 RDW-CV (test code = 788-0) 12.8 % 12.1-15.4 PLT (test code = 777-3) See_Comment [Automated message] The system which generated this result transmitted reference range: 150 - 328 10*3/?L. The reference range was not used to interpret this result as normal/abnormal. MPV (test code = 47409-8) 10.2 fL 9.8-13.0 NRBC/100 WBC (test code = 7845828755) See_Comment [Automated message] The system which generated this result transmitted reference range: 0.0 - 10.0 /100 WBCs. The reference range was not used to interpret this result as normal/abnormal. NRBC x10^3 (test code = 1652835050) <0.01 See_Comment [Automated message] The system which generated this result transmitted reference range: 10*3/?L. The reference range was not used to interpret this result as normal/abnormal. GRAN MAT (NEUT) % (test code = 770-8) 78.1 % IMM GRAN % (test code = 5899261243) 1.70 % LYMPH % (test code = 736-9) 10.0 % MONO % (test code = 5905-5) 9.5 % EOS % (test code = 713-8) 0.4 % BASO % (test code = 706-2) 0.3 % GRAN MAT x10^3(ANC) (test code = 6275558845) 11.88 10*3/uL 1.99-6.95 H IMM GRAN x10^3 (test code = 9507348387) 0.26 10*3/uL 0.00-0.06 H LYMPH x10^3 (test code = 731-0) 1.52 10*3/uL 1.09-3.23 MONO x10^3 (test code = 742-7) 1.45 10*3/uL 0.36-1.02 H EOS x10^3 (test code = 711-2) 0.06 10*3/uL 0.06-0.53 BASO x10^3 (test code = 704-7) 0.04 10*3/uL 0.01-0.09 Lab Interpretation (test code = 68971-9) Abnormal [facility] GLUCOSE (AUTOMATED)2021-02-27 05:06:59* Test Item Value Reference Range Interpretation Comme nts POCT GLU (test code = 2398046780) 131 mg/dL 70-110 H Notified Provide r Lab Interpretation (test code = 45290-4) Abnormal [facility] GLUCOSE (AUTOMATED)2021-02-27 00:23:21* Test Item Value Reference Range Interpretation Comme [facility] POCT GLU (test code = 6090301198) 146 mg/dL 70-110 H Notified Provide r Lab Interpretation (test code = 41348-9) [facility]normal [facility]IT[facility], [id number] 21:40:03* Test Item Value Reference Range Interpretation Comme nts VIT B12 (test code = 8105291613) 226 pg/mL 240-930 L CATALINA (test code = CATALINA) Biotin has been reported to cause a positive bias, interpret results relative to patient's use of biotin. Lab Interpretation (test code = 22847-9) [facility]-AB WITH [id number] 20:46:32* Test Item Value Reference Range Interpretation Comme [facility] HIV Semi-quantitative (test code = 18138-4) Negative Negative CATALINA (test code = CATALINA) Non-reactive for HIV-1 antigen and HIV-1/HIV-2 antibodies. ?No laboratory evidence of HIV infection. ?Repeat in 2-4 weeks if acute HIV infection is suspected. [facility] FLUID MANUAL [id number] 19:54:40* Test Item Value Reference Range Interpretation Comme [facility] BF SEGS% (test code = 05153-9) 85 % BF LYMPHS% (test code = 43778-6) 3 % BF MACROPHAGE% (test code = 01041-9) 10 % BF MESOS% (test code = 18014-1) 1 % BF EOS% (test code = 15042-3) 1 % BF #CELLS CNTD (test code = 2023687742) cells/u L [facility] [id number] 19:18:36 LEUKOCYTOSIS WITH ABSOLUTE NEUTROPHILIA, MONOCYTOSIS, AND EOSINOPENIA. NO INCREASE IN BLASTS IDENTIFIED. ERYTHROCYTES ARE UNREMARKABLE. MILD THROMBOCYTOSIS.[facility] CenterLACTATE [id number] 18:57:19* Test Item Value Reference Range Interpretation Comme [facility] LDH (test code = 4044029886) 469 U/L 300-600 Lab Interpretation (test cod e = 15873-4) Normal [facility] FLUID DIRECT [id number] 18:17:32* Test Item Value Reference Range Interpretation Comme nts BF COLOR (test code = 2109366810) Slightly Bloody BF WBC Count (test code = 1219154547) See_Comment [Automated [employer]] The system which generated this result transmitted reference range: /?L. The reference range was not used to interpret this result as normal/abnormal. BF RBC Count (test code = 5008535477) See_Comment [Automated [employer]] The system which generated this result transmitted reference range: /?L. The reference range was not used to interpret this result as normal/abnormal. CATALINA (test code = CATALINA) The reference range and other method performance specifications have not been established for this body fluid. ?The test results must be integrated into the clinical context for interpretation. [facility]-REACTIVE [id number] 18:04:06* Test Item Value Reference Range Interpretation Comme nts CRP (test code = 5368574505) 39.3 mg/dL <0.8 H Lab Interpretation (test cod e = 98699-1) [facility]normal [facility] CenterPROCALCITONIN2021-11-04 17:18:51* Test Item Value Reference Range Interpretation Comme nts Procalcitonin (test code = 1441077077) 4.49 ng/mL <0.07 H CATALINA (test code [...] lung abscess/empyema. For further information please refer to:[email or web address] Lab Interpretation (test code = 43487-2) [facility]normal [facility] CenterPO[facility] GLUCOSE (AUTOMATED)2021-02-26 16:56:13* Test Item Value Reference Range Interpretation Comme [facility] POCT GLU (test code = 4666742331) 156 mg/dL 70-110 H Lab Interpretation (test cod e = 10970-0) [facility]normal [facility] CenterVITAMIN D, [id number] 16:35:49* Test Item Value Reference Range Interpretation Comme [facility] VIT D 25OH (test code = 31069-7) <13 25-80 L CATALINA (test code = CATALINA) Deficiency: <20 ng/mLInsufficiency: 20-24 ng/mLOptimal: 25-80 ng/mL Lab Interpretation (test code = 58110-6) Abnormal [facility] CenterFERRITIN [id number] 16:15:43* Test Item Value Reference Range Interpretation Comme nts FERRITIN (test code = 9765680634) 257.0 ng/mL 18.0-464.0 CATALINA (test code = CATALINA) Biotin has been reported to cause a negative bias, interpret results relative to patient's use of biotin. Lab Interpretation (test code = 66262-1) Normal [facility] CenterTHYROID STIMULATING [id number] 16:11:43 * Test Item Value Reference Range Interpretation Comme nts TSH (test code = 2863031119) See_Comment H [Automated [employer]] The system which generated this result transmitted reference range: 0.45 - 4.70 mIU/L. The reference range was not used to interpret this result as normal/abnormal. Lab Interpretation (test code = 28014-6) [facility]normal [facility] CenterIRON [id number] 15:46:18* Test Item Value Reference Range Interpretation Comme nts IRON (test code = 3695744875) 31 ug/dL 50-160 L TIBC (test code = 6119265015) 239 ug/dL 250-410 L % FE SAT (test code = 7752734251) 13 % 20-50 L Lab Interpretation (test cod e = 21095-1) Abnormal [facility] CenterLIPID PANEL (18059)(TOTAL CHOLESTEROL, TRIGLYCERIDES, HDL)2021-02-26 15:37:39* Test Item Value Reference Range Interpretation Comme nts CHOL (test code = 5406083539) 124 mg/dL 120-200 HDL (test code = 9934584013) 25 mg/dL >40 L HDLC RATIO (test code = 2165377698) See_Comment [Automated [employer] ge] The system which generated this result transmitted reference range: <=5.0. The reference range was not used to interpret this result as normal/abnormal. TRIG (test code = 6204493026) 144 mg/dL 30-170 LDL CHOL (test code = 18660-9) 70 mg/dL See_Comment [Automated [employer] ge] The system which generated this result transmitted reference range: <=160. The reference range was not used to interpret this result as normal/abnormal. VLDL (test code = 9645403979) 29 mg/dL 5-60 Lab Interpretation (test code = 47765-3) [facility]normal [facility] CenterURIC [id number] 15:37:19* Test Item Value Reference Range Interpretation Comme nts URIC ACID (test code = 8519029132) 5.1 mg/dL 3.6-8.0 Lab Interpretation (test cod e = 95810-3) Normal [facility] CenterAMYLASE2021-11-04 15:36:58* Test Item Value Reference Range Interpretation Comme nts MARIA ELENA (test code = 2863228903) 38 U/L 35-110 Lab Interpretation (test cod e = 31717-1) Normal [facility] CenterPO[facility]SE (AUTOMATED)2021-02-26 14:26:57* Test Item Value Reference Range Interpretation Comme nts POCT GLU (test code = 4923078865) 163 mg/dL 70-110 H Lab Interpretation (test cod e = 62523-8) Abnormal [facility] CenterProtein Total Uxwwo5286-84-42 13:47:57* Test Item Value Reference Range Interpretation Comme nts T PROTEIN (test code = 0786925759) 6.1 g/dL 6.3-8.2 L Lab Interpretation (test cod e = 53677-4) Abnormal [facility] CenterMagnesium [id number] 11:57:09* Test Item Value Reference Range Interpretation Comme nts MAGNESIUM (test code = 5196953876) 1.9 mg/dL 1.7-2.4 Lab Interpretation (test cod e = 67086-3) Normal [facility] CenterCOMP. METABOLIC PANEL (45948)2021-02-26 11:56:54* Test Item Value Reference Range Interpretation Comme nts NA (test code = 1469915947) 132 mmol/L 135-145 L K (test code = 6024461181) 4.1 mmol/L 3.5-5.0 CL (test code = 7824390975) 99 mmol/L 98-108 CO2 TOTAL (test code = 8623022211) 24 mmol/L 23-31 AGAP (test code = 4185443036) 2-16 BUN (test code = 9378974892) 10 mg/dL 7-23 GLUCOSE (test code = 3971584382) 182 mg/dL 70-110 H CREATININE (test code = 5895481209) 0.81 mg/dL 0.60-1.25 TOTAL BILI (test code = 9641090371) 1.2 mg/dL 0.1-1.1 H CALCIUM (test code = 0698837439) 8.5 mg/dL 8.6-10.6 L T PROTEIN (test code = 9148668450) 6.1 g/dL 6.3-8.2 L ALBUMIN (test code = 3203107520) 3.4 g/dL 3.5-5.0 L ALK PHOS (test code = 1928604602) 86 U/L 34-122 ALTv (test code = 1742-6) 25 U/L 5-50 AST(SGOT) (test code = 8519570495) 15 U/L 13-40 eGFR (test code = 0517621870) mL/min/1.73m2 CATALINA (test code = CATALINA) Association [...] imaging tests). Lab Interpretation (test code = 74879-8) Abnormal [facility] CenterTROPONIN [id number] 11:51:29* Test Item Value Reference Range Interpretation Comments TROPONIN I (test code = 8152082302) 0.001 ng/mL See_Comment [Automated message] The system [...] of biotin. Lab Interpretation (test code = 77587-0) Normal [facility] CenterN-TERMINAL [id number] 11:48:52* Test Item Value Reference Range Interpretation Comme nts NT-proBNP (test code = 2424375646) 61 pg/mL See_Comment [Automated message] The system which generated this result transmitted reference range: <=125. The reference range was not used to interpret this result as normal/abnormal. CATALINA (test code = CATALINA) Biotin has been reported to cause a negative bias, interpret results relative to patient's use of biotin. Lab Interpretation (test code = 07492-7) Normal [facility] CenterCBC with Piudnpaqdykh1585-85-74 11:08:26* Test Item Value Reference Range Interpretation [...] 33.2 g/dL 31.2-35.0 RDW-SD (test code = 37704-5) 40.2 fL 38.5-51.6 RDW-CV (test code = 788-0) 12.7 % 12.1-15.4 PLT (test code = 777-3) See_Comment H [Automated message] The system which generated this result transmitted reference range: 150 - 328 10*3/?L. The reference range was not used to interpret this result as normal/abnormal. MPV (test code = 90997-8) 10.2 fL 9.8-13.0 NRBC/100 WBC (test code = 3041850445) See_Comment [Automated message] The system which generated this result transmitted reference range: 0.0 - 10.0 /100 WBCs. The reference range was not used to interpret this result as normal/abnormal. NRBC x10^3 (test code = 5873733911) <0.01 See_Comment [Automated message] The system which generated this result transmitted reference range: 10*3/?L. The reference range was not used to interpret this result as normal/abnormal. GRAN MAT (NEUT) % (test code = 770-8) 79.1 % IMM GRAN % (test code = 3178134904) 0.60 % LYMPH % (test code = 736-9) 10.0 % MONO % (test code = 5905-5) 9.6 % EOS % (test code = 713-8) 0.3 % BASO % (test code = 706-2) 0.4 % GRAN MAT x10^3(ANC) (test code = 5933546055) 11.11 10*3/uL 1.99-6.95 H IMM GRAN x10^3 (test code = 6894154009) 0.09 10*3/uL 0.00-0.06 H LYMPH x10^3 (test code = 731-0) 1.40 10*3/uL 1.09-3.23 MONO x10^3 (test code = 742-7) 1.35 10*3/uL 0.36-1.02 H EOS x10^3 (test code = 711-2) 0.04 10*3/uL 0.06-0.53 L BASO x10^3 (test code = 704-7) 0.06 10*3/uL 0.01-0.09 Lab Interpretation (test code = 70268-4) Abnormal [facility] CenterACUTE CARE VENOUS BLOOD [id number] 06:40:24 * Test Item Value Reference Range Interpretation Comme nts PH (test code = 4920914312) 7.32-7.42 PCO2 MICHELLE (test code = 8355676203) See_Comment L [Automated messa ge] The system which generated this result transmitted reference range: 41 - 51 mmHg. The reference range was not used to interpret this result as normal/abnormal. PO2 MICHELLE (test code = 8876251992) See_Comment H [Automated messa ge] The system which generated this result transmitted reference range: 25 - 40 mmHg. The reference range was not used to interpret this result as normal/abnormal. HCO3 MICHELLE (test code = 8238190790) See_Comment [Automated messa ge] The system which generated this result transmitted reference range: 24 - 28 mEq/L. The reference range was not used to interpret this result as normal/abnormal. AC VBE(BEAKER) (test code = 9776311590) mEq/L Lab Interpretation (test code = 08590-0) Abnormal [facility] CenterTROPONIN [id number] 05:46:11* Test Item Value Reference Range Interpretation Comments TROPONIN I (test code = 6918966407) 0.003 ng/mL See_Comment [Automated message] The system [...] of biotin. Lab Interpretation (test code = 68612-6) Normal [facility] CenterLASCATE [id number] 05:33:54* Test Item Value Reference Range Interpretation Comme [facility] LDH (test code = 2562632965) 427 U/L 300-600 Lab Interpretation (test cod e = 06457-8) Normal [facility] CenterSEDIMENTATION [id number] 05:31:01* Test Item Value Reference Range Interpretation Comme nts ESR (test code = 2019978947) See_Comment [Automated messa ge] The system which generated this result transmitted reference range: 0 - 10 mm/HR. The reference range was not used to interpret this result as normal/abnormal. Lab Interpretation (test code = 05855-7) [facility] Whole Bxgee8344-64-70 05:09:42* Test Item Value Reference Range Interpretation Comme nts LACTIC ACID (test code = 2323238413) 1.41 mmol/L 0.50-2.20 Lab Interpretation (test cod e = 95398-4) Normal [facility] CenterPOSC GLUCOSE (AUTOMATED)2021-02-26 04:56:49* Test Item Value Reference Range Interpretation Comme nts POCT GLU (test code = 7644943085) 146 mg/dL 70-110 H Lab Interpretation (test cod e = 93013-2) Abnormal [facility] CenterGLYCOSYLATED HEMOGLOBIN (A1C)2021-02-26 04:38:39* Test Item Value Reference Range Interpretation Comme nts HGB A1C (test code = 4548-4) 6.8 % 4.0-5.7 H CATALINA (test code = CATALINA) Reference RangesNormal: <5.7%Prediabetes: 5.7 - 6.4%Diabetes: > 6.5% Lab Interpretation (test code = 68533-8) Abnormal [facility] CenterPhosphorus [id number] 02:43:30* Test Item Value Reference Range Interpretation Comme nts PHOSPHORUS (test code = 4788545653) 3.2 mg/dL 2.5-5.0 Lab Interpretation (test cod e = 33456-5) Normal [facility] CenterTROPONIN [id number] 17:37:48* Test Item Value Reference Range Interpretation Comments TROPONIN I (test code = 2220641731) 0.001 ng/mL See_Comment [Automated message] The system [...] of biotin. Lab Interpretation (test code = 02677-1) Normal [facility] CenterETHANOL2021-11-03 17:36:29* Test Item Value Reference Range Interpretation Comme nts ALCOHOL (test code = 0382147164) <10 mg/dL CATALINA (test code = CATALINA) <10 Ixfffadp17-876 Toxic>100 Depression of COOK FISH EGGS>400 Fatalities Reported [facility] CenterACETAMINOPHEN2021-11-03 17:36:29* Test Item Value Reference Range Interpretation Comme nts ACETAMINOP (test code = 6672551255) <10.0 10.0-30.0 L CATALINA (test code = CATALINA) Toxic: Greater stuart n 200 ug/mL @ 4 hour post ingestion or greater than 50 ug/mL @ 12 hour post ingestion Lab Interpretation (test code = 96207-7) Abnormal [facility] CenterN-TERMINAL [id number] 17:27:26* Test Item Value Reference Range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
[2024-06-13] MEDS ORDERED: LORazepam 2 MG/ML VIAL ONE (00:35)
[2024-06-13] MEDS ORDERED: WATER FOR INJ,STERILE 10 ML ONE (00:35)
[2024-06-13] MEDS ORDERED: ZIPRASIDONE MESYLA 20 MG/VIAL IM ONE (00:35)
[2024-06-13 00:38] LABS: Absolute Basophils 0.1 K/uL (0-0.5); Absolute Eosinophils 0.2 K/uL (0-0.5); Absolute Monocytes 0.6 K/uL (0.1-1.3); Absolute Neutrophil 3.9 K/uL (1.8-8.0); Basophils % 0.7 % (0-1.3); Eosinophils % 2.3 % (0-4.4); Hematocrit 43.8 % (39.6-49.0); Hemoglobin 14.8 g/dL (13.6-17.9); Lymphocytes % 38.7 % (15.3-44.8); MCH 29.6 pg (27.0-35.0); MCHC 33.7 g/dL (32.0-36.0); MCV 87.9 fL (80-100); MPV 9.3 fL (7.6-11.3); Neutrophils % 50.3 % (41.7-73.7); Nucleated Red Blood Cells % 0.1 % (0-0); Platelets 264 thou/uL (152-406); RBC Red Blood Cell Count 4.98 M/uL (4.33-5.43); Red Cell Distribution Width 12.8 % (12.1-15.2)
[2024-06-13 00:45] LABS: Barbiturates NEGATIVE (NEGATIVE); Benzodiazepines NEGATIVE (NEGATIVE); Cocaine NEGATIVE (NEGATIVE); METHAMPHETAM NEGATIVE (NEGATIVE); Methadone NEGATIVE (NEGATIVE); Opiates NEGATIVE (NEGATIVE); Phencyclidine NEGATIVE (NEGATIVE); THC Cannibis POSITIVE (NEGATIVE)
[2024-06-13 00:47] LABS: PT Prothrombin Time 10.3 SECONDS (9.4-12.5); PTT, Activated Partial Thromb 30.4 SECONDS (24.3-36.9); Protime INR 0.98
[2024-06-13 00:50] LABS: Sqamous Epithelial None Seen /HPF (None Seen); Urine Bacteria None Seen /HPF (<20); Urine Bilirubin NEGATIVE (Negative); Urine Blood Negative (Negative); Urine Clarity Clear (Clear); Urine Color Light-Yellow (Yellow); Urine Culture Reflex Order NOT NEEDED; Urine Glucose 4+ (Over) (Negative); Urine Ketones NEGATIVE (Negative); Urine Microscopic Reflex YN ORDER UMIC; Urine Mucus Slight /HPF (None Seen); Urine Nitrite NEGATIVE (Negative); Urine Protein NEGATIVE (Negative); Urine RBC <5 /HPF (None Seen); Urine Urobilinogen Normal (Normal); Urine WBC <5 /HPF (<5); Urine pH 6.5 (5.0-7.0)
[2024-06-13 00:56] LABS: ALT/SGPT 34 U/L (16-61); AST/SGOT 18 U/L (15-37); Albumin 3.7 g/dL (3.4-5.0); Albumin/Globulin Ratio 1.1 (1.1-1.8); Alkaline Phosphatase 58 U/L (45-117); Anion Gap 9.7 mEq/L (5.0-15.0); BUN Blood Urea Nitrogen 8 mg/dL (7-18); Bicarbonate 24 mEq/L (21-32); Bilirubin Total 0.3 mg/dL (0.2-1.0); Globulin 3.5 g/dL (2.3-3.5); Glomerular Filtration Rate 104 ml/min (=/>90); Glucose Level 262 mg/dL (74-106); Potassium 3.7 mEq/L (3.5-5.1); Protein, Total 7.2 g/dL (6.4-8.2); Sodium Level 135 mEq/L (136-145)
[2024-06-13 00:58] LABS: Bilirubin Direct < 0.2 mg/dL (0-0.2); Bilirubin Indirect, Calculated 0.1 mg/dL (0.2-0.8)
--- NOTE | 2024-06-13 06:18 | EDPHYS ---
Physician Documentation [facility] Name: Kartik Swartz Jr Age: 34 yrs Sex: Male : 1990 Arrival Date: 06/12/2024 Time: 23:28 Bed 5 Private MD: ED Physician Michael Peck HPI: 06/12 23:31 This 34 yrs old Black Male presents to ER via Unassigned with complaints of sp4 HALLUCINATIONS, PT STATES HE IS HEARING VOICES AND HAVING MOOD SWINGS. 06/13 06:14 Patient presents with complaint of auditory hallucinations. Patient has schizophrenia sp4 history. Historical: - Allergies: 06/12 23:40 ROBITUSSIN; lg3 23:40 Tylenol-Codeine #3; lg3 23:40 Unable to obtain; lg3 - PMHx: 23:40 Diabetes - NIDDM; Hypertension; Pancreatitis; Schizophrenia; lg3 - PSHx: 23:40 hernia repair (ph); lg3 - Immunization history:: Adult Immunizations unknown. - Infectious Disease History:: Denies. - Social history:: Smoking status: Patient reports the use of cigarette tobacco products, smokes one-half pack cigarettes per day, Patient uses alcohol, occasionally. Patient/guardian denies using street drugs. - Family history:: not pertinent. ROS: 06/13 06:14 Constitutional: Negative for fever, chills, and weight loss, positive hallucinations sp4 All other systems are negative, Exam: 01:11 ECG was reviewed by the Attending Physician. EKG 0052 sinus rhythm 89 sp4 06:14 Constitutional: This is a well developed, well nourished patient who is awake, alert, sp4 and in no acute distress. Head/Face: Normocephalic, atraumatic. Eyes: Pupils equal round and reactive to light, extra-ocular motions intact. Lids and lashes normal. Conjunctiva and sclera are not injected. Cornea within normal limits. Periorbital areas with no swelling, redness, or edema. ENT: Nares patent. No nasal discharge, no septal abnormalities noted. Tympanic membranes are normal and external auditory canals are clear. Oropharynx with no redness, swelling, or masses, exudates, or evidence of obstruction, uvula midline. Mucous membranes moist. Neck: Trachea midline, no thyromegaly or masses palpated, and no cervical lymphadenopathy. Supple, full range of motion without nuchal rigidity, or vertebral point tenderness. Chest/axilla: Normal chest wall appearance and motion. Nontender with no deformity. No lesions are appreciated. Cardiovascular: Regular rate and rhythm with a normal S1 and S2. No gallops, murmurs, or rubs. Normal PMI, no JVD. No pulse deficits. Respiratory: Lungs have equal breath sounds bilaterally, clear to auscultation and percussion. No rales, rhonchi or wheezes noted. No increased work of breathing, no retractions or nasal flaring. Abdomen/GI: Soft, with normal bowel sounds. No distension or tympany. No guarding or rebound. No evidence of tenderness throughout. Back: No spinal tenderness. No costovertebral tenderness. Skin: Warm, dry with normal turgor. Normal color with no rashes, no lesions, and no evidence of cellulitis. MS/ Extremity: Pulses equal, no cyanosis. Neurovascular intact. Full, normal range of motion. Neuro: Awake and alert, GCS 15, oriented to person, place, Cranial nerves II-XII grossly intact. Motor strength 5/5 in all extremities. Sensory grossly intact. Disoriented to time Psych: Awake, alert, with orientation to person, place -patient has rambling speech with episodes of derailment. Vital Signs: 00:00 BP 158 / 105; Pulse 92; Resp 18 S; Temp 97.6(O); Pulse Ox 97% on R/A; Weight 100.7 kg lg3 (R); Height 5 ft. 11 in. (R); 00:47 BP 146 / 102; Pulse 92; Resp 20; Temp 99; Pulse Ox 97% ; MAP 116 mmHg; aa10 02:53 BP 125 / 75; Pulse 87; Resp 17; Pulse Ox 94% on R/A; dd2 06:23 BP 117 / 85; Pulse 81; Resp 17; Pulse Ox 95% on R/A; dd2 00:00 Body Mass Index 30.96 (100.70 kg, 180.34 cm) lg3 Jovita Coma Score: 06:14 Eye Response: spontaneous(4). Motor Response: obeys commands(6). Verbal Response: sp4 oriented(5). Total: 15. MDM: 03:00 Medical Screening Exam initiated sp4 06:17 Differential Diagnosis altered mental status, sepsis, flu. Data reviewed: vital signs, sp4 nurses notes, lab test result(s). Consideration of Admission/Observation Escalation of care including admission/observation considered. ED course: Stable for transfer to psychiatric hospital. 06/12 23:41 Order name: Acetaminophen; Complete Time: 03:57 sp4 06/12 23:41 Order name: Basic Metabolic Panel; Complete Time: 03:57 sp4 06/12 23:41 Order name: CBC with Diff; Complete Time: 03:57 sp4 06/12 23:41 Order name: ETOH Level; Complete Time: 03:57 sp4 06/12 23:41 Order name: Hepatic Function; Complete Time: 03:57 sp4 06/12 23:41 Order name: PT-INR; Complete Time: 03:57 sp4 06/12 23:41 Order name: Ptt, Activated; Complete Time: 03:57 sp4 06/12 23:41 Order name: Salicylate; Complete Time: 03:57 sp4 06/12 23:41 Order name: Urinalysis w/ reflexes; Complete Time: 03:57 sp4 06/12 23:41 Order name: Urine Drug Screen; Complete Time: 03:57 sp4 06/12 23:41 Order name: EKG - Nurse/Tech; Complete Time: 00:56 sp4 06/12 23:41 Order name: IV Saline Lock; Complete Time: 00:06 sp4 06/12 23:41 Order name: Labs collected and sent; Complete Time: 00:06 sp4 06/12 23:41 Order name: Suicide Screening ([place]); Complete Time: 00:24 sp4 EC:52 Rate is 89 beats/min. Rhythm is regular, Normal Sinus Rhythm. QRS [place] is Normal. MS sp4 interval is normal. QRS interval is normal. QT interval is normal. No Q waves. T waves are Normal. No ST changes noted. Clinical impression: No evidence of ischemia. Interpreted by me. Reviewed by me. Administered Medications: 00:57 Drug: Geodon IM 40 mg IM once Route: IM; Site: left deltoid; dd2 01:12 Follow up: Response: No adverse reaction dd2 00:57 Drug: LORazepam IM 2 mg IM once Route: IM; Site: right deltoid; dd2 01:12 Follow up: Response: No adverse reaction dd2 Disposition Summary: 06/13/24 06:17 Transfer Ordered Notes: Transfer Location: Psych Facility sp4 Reason: Higher level of care sp4 Condition: Stable sp4 Problem: new sp4 Symptoms: have improved sp4 Accepting Physician: Attending psychiatrist(06/13/24 09:30) ld1 Diagnosis - Acute psychosis, acute auditory hallucinations. sp4 Forms: - Medication Reconciliation Form sp4 - SBAR form sp4 Signatures: Dispatcher [employer] EDPatricia Thomason RN RN lg3 Reba Gilliland RN RN ld1 Michael Peck MD MD sp4 VENUS CARCAMO RN RN dd2 Corrections: (The following items were deleted from the chart) 09:30 06:17 Attending psychiatrist sp4 ld1
--- NOTE | 2024-06-13 06:18 | ER ---
Nurse's Notes [facility] Name: Kartik Swartz Jr Age: 34 yrs Sex: Male : 1990 Arrival Date: 06/12/2024 Time: 23:28 Bed 5 Private MD: Diagnosis: Acute psychosis, acute auditory hallucinations. Presentation: 06/12 23:36 Chief complaint: pt in lobby undressing. once in triage pt unable to form lg3 comprehensible sentences. 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 denies SI/HI at this time. Coronavirus screen: Client denies travel out of the [place] in the last 14 days. At this time, the client does not indicate any symptoms associated with coronavirus-19. Ebola Screen: No symptoms or risks identified at this time. Risk Assessment: Do you want to hurt yourself or someone else? Patient reports no desire to harm self or others. Onset of symptoms is unknown. 23:36 Method Of Arrival: Ambulatory lg3 23:36 Acuity: JENNIFER 3 lg3 06/13 00:00 Initial Sepsis Screen: Does the patient meet any 2 criteria? No. Patient's initial lg3 sepsis screen is negative. Does the patient have a suspected source of infection? No. Patient's initial sepsis screen is negative. Triage Assessment: 06/12 23:40 General: Appears in no apparent distress. Behavior is anxious. Pain: Denies pain. EENT: lg3 No deficits noted. No signs and/or symptoms were reported regarding the EENT system. Neuro: Patel Agitation-Sedation Scale (RASS): +1 Restless Level of Consciousness is awake, stuporous, Oriented to person. Cardiovascular: No deficits noted. Denies chest pain, shortness of breath, Capillary refill < 3 seconds Clubbing of nail beds is absent JVD is absent Patient's skin is warm and dry. Respiratory: No deficits noted. Airway is patent Respiratory effort is even, unlabored, Respiratory pattern is regular, symmetrical. GI: No deficits noted. No signs and/or symptoms were reported involving the gastrointestinal system. : No signs and/or symptoms were reported regarding the genitourinary system. Derm: No deficits noted. No signs and/or symptoms reported regarding the dermatologic system. Skin is intact, is healthy with good turgor, Skin is dry, Skin is normal, Skin temperature is warm. Musculoskeletal: No deficits noted. No signs and/or symptoms reported regarding the musculoskeletal system. Circulation, motion, and sensation intact. Range of motion: intact in all extremities. Historical: - Allergies: 23:40 ROBITUSSIN; lg3 23:40 Tylenol-Codeine #3; lg3 23:40 Unable to obtain; lg3 - PMHx: 23:40 Diabetes - NIDDM; Hypertension; Pancreatitis; Schizophrenia; lg3 - PSHx: 23:40 hernia repair (ph); lg3 - Immunization history:: Adult Immunizations unknown. - Infectious Disease History:: Denies. - Social history:: Smoking status: Patient reports the use of cigarette tobacco products, smokes one-half pack cigarettes per day, Patient uses alcohol, occasionally. Patient/guardian denies using street drugs. - Family history:: not pertinent. Screenin/19 00:50 [facility] ED Fall Risk Assessment (Adult) History of falling in the last 3 months, aa10 including since admission No falls in past 3 months (0 pts) Confusion or Disorientation Yes (5 pts) Intoxicated or Sedated No (0 pts) Impaired Gait No (0 pts) Mobility Assist Device Used No (0 pt) Altered Elimination No (0 pt) Score/Fall Risk Level 0 - 2 = Low Risk Oriented to surroundings, Maintained a safe environment, Educated pt \T\ family on fall prevention, incl call for assistance when getting out of bed, Assessed \T\ reinforced patient's understanding of fall precautions, Provided non-skid footwear, Hourly rounding (assess needs \T\ fall precautionary measures) done. Abuse screen: Denies threats or abuse. Denies injuries from another. Nutritional screening: No deficits noted. Tuberculosis screening: No symptoms or risk factors identified. Assessment: 00:48 General: Appears in no apparent distress. comfortable, unkempt, Behavior is calm, aa10 cooperative, flat, quiet. Pain: Denies pain. Neuro: No deficits noted. Level of Consciousness is awake, alert, confused, Oriented to person, place, time, NOT ORIENTED TO SITUATION. Cardiovascular: No deficits noted. Capillary refill < 3 seconds. Respiratory: No deficits noted. Airway is patent. 03:07 Reassessment: PT SLEEPING QUIETLY WITH EYES CLOSED. RESPIRATIONS EVEN AND UNLABORED. dd2 06:23 Reassessment: REPORT GIVEN TO DEE MIRANDA RN. dd2 Vital Signs: 00:00 BP 158 / 105; Pulse 92; Resp 18 S; Temp 97.6(O); Pulse Ox 97% on R/A; Weight 100.7 kg lg3 (R); Height 5 ft. 11 in. (R); 00:47 BP 146 / 102; Pulse 92; Resp 20; Temp 99; Pulse Ox 97% ; MAP 116 mmHg; aa10 02:53 BP 125 / 75; Pulse 87; Resp 17; Pulse Ox 94% on R/A; dd2 06:23 BP 117 / 85; Pulse 81; Resp 17; Pulse Ox 95% on R/A; dd2 00:00 Body Mass Index 30.96 (100.70 kg, 180.34 cm) lg3 Jovita Coma Score: 06:14 Eye Response: spontaneous(4). Motor Response: obeys commands(6). Verbal Response: sp4 oriented(5). Total: 15. ED Course: 06/12 23:30 Patient arrived in ED. jj6 23:31 Michael Peck MD is Attending Physician. sp4 23:40 Triage completed. lg3 23:40 Arm band placed on left wrist. lg3 06/13 00:06 Salicylate Sent. kmf 00:06 Ptt, Activated Sent. kmf 00:06 PT-INR Sent. kmf 00:06 Hepatic Function Sent. kmf 00:06 ETOH Level Sent. kmf 00:06 CBC with Diff Sent. kmf 00:06 Basic Metabolic Panel Sent. kmf 00:06 Acetaminophen Sent. kmf 00:06 Inserted saline lock: 22 gauge in right antecubital area, using aseptic technique. kmf Blood collected. Flushed with 10 mL NS. 00:51 Patient has correct armband on for positive identification. Allergy band placed. Fall aa10 risk band placed. Placed in gown. Bed in low position. Call light in reach. Side rails up X2. Provided Education on: on plan of care. Client placed on continuous cardiac and pulse oximetry monitoring. NIBP monitoring applied. clinical research monitor on. Pulse ox on. NIBP on. Door closed. Noise minimized. Lights dimmed. Warm blanket given. Pillow given. Verbal reassurance given. Head of bed elevated. Diet: Patient given a regular meal tray. Patient is placed in psych hold. 00:53 No apparent distress. Resting quietly. Safety Checks: Personal items have been removed. aa10 environment ensured safe and free from deondre. 00:57 VENUS CARCAMO, RN is Primary Nurse. dd2 00:57 No provider procedures requiring assistance completed. EKG done, by ED staff, reviewed dd2 by Michael Peck MD. Patient maintains SpO2 saturation greater than 95% on room air. 01:36 faxed pt clinical's to various psych facilities ([facility], [facility], [place]). 06:15 pt was accepted to [facility]. Admin approval given by Kimber Angulo \T\[id number]. [facility] Jah accepting MD \T\ 0615. Pt to be transfer with [facility] in AM after transfer warrant is signed by Microbiological Laboratory Technician. 09:30 IV discontinued, intact, bleeding controlled, No redness/swelling at site. ld1 Administered Medications: 00:57 Drug: Geodon IM 40 mg IM once Route: IM; Site: left deltoid; dd2 01:12 Follow up: Response: No adverse reaction dd2 00:57 Drug: LORazepam IM 2 mg IM once Route: IM; Site: right deltoid; dd2 01:12 Follow up: Response: No adverse reaction dd2 Medication: 00:53 VIS not applicable for this client. aa10 Outcome: 06:17 ER care complete, transfer ordered by sp4 09:30 Discharged to [employer] ld1 09:30 Condition: stable 09:30 Instructed on the need for transfer, 09:30 Patient left the ED. ld1 Signatures: Patricia Davis RN RN lg3 Reba Gilliland RN RN ld1 Carmencita Ramirez Sergey, MD MD sp4 Sravani Dyson [facility] VENUS CARCAMO, RN RN dd2 Dee Chaudhari RN RN aa10 Corrections: (The following items were deleted from the chart) 06/12 23:46 23:36 Chief complaint: pt in lobby undressing. once in triage pt unable to form lg3 comprehensible sentences. lg3
[2024-06-13 11:33] VITALS: TEMP 99
[2024-06-13 11:36] VITALS: BP 117/85; O2SAT 95
== END 2024-06-13 09:30 ==
LOC: ER 23:28
DX: F23 Brief psychotic disorder (principal)
CPT/HCPCS: 36415; 80048; 80076; 80143; 80179; 80307; 81001; 82077; 85025; 85610; 85730; 93005; J3486

== ENCOUNTER 2024-07-12 06:06 | Emergency (ER) | payer OTHER ==
--- OUTSIDE RECORDS SUMMARY | 2024-07-12 06:15 | XMS REPORT | Continuity of Care Document ---
Author Name Unknown Address [address] [facility] [address] [place] [address] [facility] [address] [facility] [address] [place] [address] Care Team Providers Care Communications Technologist Name Role Phone PCP, PATIENT DOES NOT HAVE A Primary Care Physic linden Unavailable XOCHITL FREEMAN Attending Clinician Unavailable Xochitl Freeman PA-C Attending Clinician [phone] ESSENCE LANDRY Attending Clinician Unavailable Essence Landry MD Attending Clinician [phone] Doctor Unassigned, [place] Attending Clinician U Laney Haynes LVN Attending Clinician [phone] GORGE TAVAREZ Attending Clinician Unavailable Franklin Chatman MD Attending Clinician [phone] Chaim Ji MD Attending Clinician [phone] Gorge Tavarez MD Attending Clinician [phone] XOCHITL ECHOLS Attending Clinician Unavail Nikolay Cruz Attending Clinician + [phone] ESSENCE LANDRY Admitting Clinician Unavailable Essence Landry MD Admitting Clinician [phone] GORGE TAVAREZ Admitting Clinician Unavailable Gorge Tavarez MD Admitting Clinician [phone] Payers Payer Name Policy Type Policy Number Effective Date Expirati on Date Source [facility] [id number] 00:00:00 [facility] [id number] [id number] 00:00:00 Problems Condition Name Condition Details Condition Category Status Onset Date Resolution Date Last Treatment Date Treating Clinician Comments Source Incarcerat ed right inguinal hernia Incarcerat ed right inguinal hernia Disease Active 08-13 00:00: 00 Overview: Formattin g of this note might be different from the original. Added automatic ally from request for surgery [id number] [facility] Essential hypertensi on Essential hypertensi on Disease Active 2020-04 00:00: 00 [facility] Dyslipidem ia Dyslipidem ia Disease Active 2020-04 00:00: 00 [facility] Type 2 diabetes mellitus with other specified complicati on Type 2 diabetes mellitus with other specified complicati on Disease Active 2020-04 00:00: 00 [facility] Atypical chest pain Atypical chest pain Disease Active 2020-04 00:00: 00 [facility] Tachycardi a Tachycardi a Disease Active 2020-04 00:00: 00 [facility] Acute respirator y distress Acute respirator y distress Disease Active 2020-04 00:00: 00 [facility] Obesity (BMI 30-39.9) Obesity (BMI 30-39.9) Disease Active 10-30 00:00: 00 [facility] DKA (diabetic ketoacidos es) DKA (diabetic ketoacidos es) Disease Active 10-30 00:00: 00 [facility] Hyperlipid emia, unspecifie d hyperlipid emia type Hyperlipid emia, unspecifie d hyperlipid emia type Problem Active [facility] Type 2 diabetes mellitus with hyperglyce juan daniel Type 2 diabetes mellitus with hyperglyce juan daniel Problem Active [facility] care home current use of insulin care home current use of insulin Problem Active [facility] History of pancreatit is History of pancreatit is Problem Active [facility] Anxiety Anxiety Problem Active [facility] Hypertensi on, unspecifie d type Hypertensi on, unspecifie d type Problem Active [facility] Allergies, Adverse Reactions, Alerts Allergy Name Allergy Type Status Severity Reaction(s) Onset Date Inactive Date Treating Clinician Comments Source RISPERID ONE DRUG INGREDI Active Hives 08-12 00:00: 00 [facility] Risperid one Propensi ty to adverse reaction s Active Hives 08-12 00:00: 00 [facility] CODEINE DRUG INGREDI Active Hives 10-30 00:00: 00 [facility] GUAIFENE SIN DRUG INGREDI Active SOB 10-30 00:00: 00 [facility] Codeine Propensi ty to adverse reaction s Active Hives 10-30 00:00: 00 [facility] Guaifene sin Propensi ty to adverse reaction s Active Shortness of Breath 10-30 00:00: 00 [facility] Social History Social Habit Start Date Stop Date Quantity Comments Source History of tobacco use Cigarette Smoker [facility] Gender identity [facility] Cigarettes smoked current (pack per day) - Reported 2022-11-23 00:00:00 2022-11-23 00:00:00 [facility] Cigarette pack-years 2022-11-23 00:00:00 2022-11-23 00:00:00 [facility] Tobacco use and exposure 2022-11-23 00:00:00 2022-11-23 00:00:00 Smokeless tobacco non-user [facility] Alcohol intake 2022-11-23 00:00:00 2022-11-23 00:00:00 Current non-drinker of alcohol (finding) [facility] Alcoholic beverage intake 2022-11-23 00:00:00 2022-11-23 00:00:00 Current non-drinker of alcohol (finding) [facility] History of Social function 2022-09-24 00:00:00 2022-09-24 00:00:00 [facility] Exposure to SARS-CoV-2 (event) 2022-09-05 00:00:00 2022-09-15 09:47:00 Not sure [facility] Sex assigned at 1990 00:00:00 1990 00:00:00 [facility] Smoking Status Start Date Stop Date Source Ex-smoker 2022-11-23 00:00:00 2022-11-23 [facility]:00:00 [facility] Current every day smoker 2020-06-19 00:00:00 [facility] Medications Ordered Medication Name Filled Medication Name Start Date Stop Date Current Medication? Ordering Clinician Indication Dosage Frequency Signature (SIG) Comments Components Source ketorolac (TORADOL) tablet 10 mg 05-09 03:15: 00 05-09 02:21 :00 No 10mg 10 mg, Oral, ONCE, 1 dose, On Tue05/08/24 at 2115, Routine [facility] methocarbam oL (ROBAXIN) tablet 1,000 mg 05-09 02:30: 00 05-09 02:21 :00 No 1000mg 1,000 mg, Oral, ONCE, 1 dose, On Tue05/08/24 at 2030, NICOLE [facility] methocarbam oL 500 mg tablet 05-08 00:00: 00 Yes [id number] 500mg Take 1 tablet by mouth 3 (three) times daily as needed for Pain (scale 4-6). [facility] naproxen (NAPROSYN) 500 mg tablet 05-08 00:00: 00 Yes [id number] 500mg Take 1 tablet by mouth in the morning and 1 tablet in the evening. Take with meals. [facility] citalopram 20 mg tablet 20 14:44: 12 Yes 20mg Take 1 tablet by mouth in the morning. [facility] metFORMIN 1,000 mg tablet 10-12 14:44: 12 Yes 1000mg Take 1 tablet by mouth in the morning and 1 tablet in the evening. Take with meals. [facility] metoprolol tartrate 50 mg tablet 10-12 14:44: 12 Yes 50mg Take 1 tablet by mouth in the morning and 1 tablet in the evening. [facility] lactated ringers IV infusion 1,000 mL 09-24 21:15: 00 Yes 1000mL at 75 mL/hr, 1,000 mL, IV Infusion, CONTINUOUS , Starting on Tue09/24/22 at 1615, Until Discontinu ed, Routine, PACU [facility] FENTanyl PF (SUBLIMAZE (PF)) injection 25 mcg 09-24 21:03: 56 Yes 25ug 25 mcg, Slow IV Push, Q5MIN PRN, 4 doses, Starting on Tue09/24/22 at 1603, Until Discontinu ed, Routine, Pain (scale 4-6), PACU [facility] ondansetron (ZOFRAN (PF)) injection 4 mg 09-24 21:03: 56 Yes 4mg 4 mg, Slow IV Push, PRN, 1 dose, Starting on Tue09/24/22 at 1603, Until Discontinu ed, Routine, Nausea and Vomiting (N/V), PACU [facility] sodium chloride 0.9 % irrigation solution 09-24 18:06: 00 09-24 21:05 :01 No PRN, Starting on Tue09/24/22 at 1306, Until Tue09/24/22 at 1605, Intra-op [facility] bupivacaine (preserv free) (SENSORCAIN E MPF) 0.25 % (2.5 mg/mL) 30 mL, BUPivacaine liposome (PF) (EXPAREL (PF)) 1.3 % (13.3 mg/mL) 20 mg, NaCl 0.9% (NS) 50 mL 09-24 18:06: 00 09-24 21:05 :01 No PRN, Starting on Tue09/24/22 at 1306, Intra-op [facility] citalopram 20 mg tablet 09-24 17:20: 52 Yes 20mg Take 1 tablet by mouth in the morning. [facility] metFORMIN 1,000 mg tablet 09-24 17:20: 52 Yes 1000mg Take 1 tablet by mouth in the morning and 1 tablet in the evening. Take with meals. [facility] metoprolol tartrate 50 mg tablet 09-24 17:20: 52 Yes 50mg Take 1 tablet by mouth in the morning and 1 tablet in the evening. [facility] lactated ringers IV infusion 1,000 mL 09-24 15:30: 00 09-24 15:42 :00 No 1000mL at 42 mL/hr, 1,000 mL, IV Infusion, ONCE, 1 dose, On Tue09/24/22 at 1030, Routine, DSU Pre-op [facility] acetaminoph en (TYLENOL) 325 mg Cap 09-24 00:00: 00 10-09 04:59 :00 No [id number] 650mg Take 650 mg by mouth in the morning and 650 mg at noon and 650 mg in the evening. Do all this for 14 days. [facility] celecoxib (CELEBREX) 200 mg capsule 09-24 00:00: 00 10-02 04:59 :00 No [id number] 200mg Take 1 capsule by mouth in the morning and 1 capsule in the evening. Take with meals. Do all this for 7 days. [facility] docusate 100 mg capsule 08-12 09:21: 09 08-12 00:00 :00 No 100mg Take 1 capsule by mouth in the morning. [facility] citalopram (CELEXA) 20 mg tablet 08-12 08:52: 02 Yes 20mg Take 1 tablet by mouth in the morning. [facility] metFORMIN 1,000 mg tablet 08-12 08:52: 02 Yes 1000mg Take 1 tablet by mouth in the morning and 1 tablet in the evening. Take with meals. [facility] aspirin 81 mg chewable tablet 2020-04 00:00: 00 08-12 00:00 :00 No [id number] 81mg Take 1 tablet by mouth daily with breakfast. [facility] docusate (COLACE) 100 mg capsule 2020-04 13:41: 43 Yes 100mg Take 100 mg by mouth daily. [facility] OLANZAPINE (ZYPREXA ORAL) 2020-04 10:34: 52 03-12 00:00 :00 No 20mg Take 20 mg by mouth every evening. [facility] benztropine 1 mg tablet 2020-04 10:34: 52 03-12 00:00 :00 No 1mg Take 1 mg by mouth daily. [facility] METOPROLOL SUCCINATE ORAL 2020-04 10:34: 52 03-12 00:00 :00 No 50mg Take 50 mg by mouth daily. [facility] omeprazole 10 mg capsule 2020-04 10:34: 52 03-12 00:00 :00 No 20mg Take 20 mg by mouth daily. [facility] pravastatin 20 mg tablet 2020-04 10:34: 52 03-12 00:00 :00 No 20mg Take 20 mg by mouth at bedtime. [facility] pravastatin 20 mg tablet 2020-04 00:00: 00 Yes [id number] 20mg Take 1 tablet by mouth at bedtime. [facility] OLANZapine (ZYPREXA) 20 mg tablet 2020-04 00:00: 00 Yes [id number] 20mg Take 1 tablet by mouth at bedtime. [facility] metoprolol succinate XL 50 mg 24 hr tablet 2020-04 00:00: 00 09-24 00:00 :00 No [id number] 50mg Take 1 tablet by mouth 2 (two) times daily. [facility] metformin ER 500 mg 24 hr tablet 2020-04 00:00: 00 08-12 00:00 :00 No [id number] 500mg Take 1 tablet by mouth 2 (two) times daily. [facility] benztropine 1 mg tablet 2020-04 00:00: 00 08-12 00:00 :00 No [id number] 1mg Take 1 tablet by mouth daily. [facility] omeprazole 20 mg capsule 2020-04 00:00: 00 08-12 00:00 :00 No [id number] 20mg Take 1 capsule by mouth daily. [facility] traMADoL 50 mg tablet 2020-04 00:00: 00 08-12 00:00 :00 No [id number] 50mg Take 1 tablet by mouth every 6 (six) hours as needed for Pain (scale 4-6). Indication s: acute pain [facility] acidophilus 100 million cell tablet 2020-04 00:00: 00 08-12 00:00 :00 No [id number] 1g Take 1 tablet by mouth 2 (two) times daily. [facility] amoxicillin -pot clavulanate 500 mg (AUGMENTIN) 500-125 mg tablet 2020-04 00:00: 00 04-03 05:59 :00 No [id number] 500mg Take 1 tablet by mouth 2 (two) times daily for 21 days. [facility] FENTanyl PF (SUBLIMAZE (PF)) injection 50 mcg 2020-04 23:00: 00 Yes 50ug 50 mcg, Slow IV Push, Q8HPRN, Starting on Tue03/11/21 at 1700, Until Discontinu ed, Routine, Pain (scale 7-10) [facility] alteplase (ACTIVASE) flush syringe 10 mg 2020-04 01:15: 00 03-10 00:18 :00 No 10mg 10 mg, Chest Tube, ONCE, 1 dose, On Tue03/09/21 at 1915, NICOLE [facility] alteplase (ACTIVASE) flush syringe 10 mg 2020-04- 14:30: 00 03-09 16:11 :00 No 10mg 10 mg, Chest Tube, Q24H, 3 doses, First dose on 03/07/21 at 0830, Last dose on 03/09/21 at 0830, Routine [facility] dornase kely (PULMOZYME) nebulizer solution Soln 5 mg 2020-04 23:30: 00 03-10 16:50 :35 No 5mg 5 mg, Intrapleur al, Q24H, First dose (after last modificati on) on Tue03/06/21 at 1730, Until Discontinu ed, NICOLE [facility] alteplase (ACTIVASE) flush syringe 10 mg 2020-04 23:30: 00 03-09 23:29 :00 No 10mg 10 mg, Chest Tube, Q24H, 3 doses, First dose (after last modificati on) on Tue03/06/21 at 1730, Last dose on Tue03/08/21 at 1730, NICOLE [facility] dornase kely (PULMOZYME) nebulizer solution Soln 5 mg 2020-04 14:30: 00 03-10 16:50 :35 No 5mg 5 mg, Intrapleur al, Q24H, First dose on Tue03/06/21 at 0830, Until Discontinu ed, Routine [facility] ipratropium -albuteroL (DUONEB) 0.5 mg-3 mg(2.5 mg base)/3 mL nebulizer solution 3 mL 2020-04 21:56: 33 Yes 3mL 3 mL, Inhalation , QIDPRN, Starting on Maureen 03/05/21 at 1556, Until Discontinu ed, Routine, Wheezing [facility] benzocaine- menthoL (CEPACOL SORE THROAT (DECLAN-MEN)) lozenge 1 Lozenge 2020-04 21:43: 42 Yes 1{lozen ge} 1 Lozenge, Oral, Q4HPRN, Starting on Tue03/03/21 at 1543, Until Discontinu ed, Routine, Sore throat [facility] NaCl 0.9% (NS) IV infusion 500 mL 2020-04 21:00: 00 03-03 21:12 :00 No 500mL at 100 mL/hr, IV Infusion, ONCE, 1 dose, On Tue03/03/21 at 1500, Routine [facility] traMADoL (ULTRAM) tablet 50 mg 2020-04 15:35: 18 Yes 50mg 50 mg, Oral, Q6HPRN, Starting on Tue03/03/21 at 0935, Until Discontinu ed, Routine, Pain (scale 4-6) [facility] melatonin (MELATIN) tablet 3 mg 2020-04 05:00: 00 Yes 3mg 3 mg, Oral, QHS, First dose on Tue03/02/21 at 2300, Until Discontinu ed, Routine [facility] KCL (KLOR-CON M20) tablet 40 mEq 2020-04 02:00: 00 03-03 01:59 :00 No 40meq 40 mEq, Oral, BID, 1 dose, First dose (after last reorder) on Tue03/02/21 at 2000, Routine [facility] KCL (KLOR-CON M20) tablet 40 mEq 2020-04 15:15: 00 03-02 14:22 :00 No 40meq 40 mEq, Oral, ONCE, 1 dose, On Tue03/02/21 at 0915, Routine [facility] doxycycline hyclate (Vibramycin ) capsule 100 mg 2020-04 14:45: 00 03-10 14:50 :32 No 100mg 100 mg, Oral, BID, First dose on Tue03/01/21 at 0845, Until Discontinu ed, NICOLE
Re ason for Anti-Infec tive: Empiric Therapy for Suspected Infection< br>Empiric Therapy Site: Respirator y
Durat ion of therapy: 7 days [facility] ipratropium -albuteroL (DUONEB) 0.5 mg-3 mg(2.5 mg base)/3 mL nebulizer solution 3 mL 2020-04 07:45: 00 03-05 21:56 :14 No 3mL 3 mL, Inhalation , QID, First dose (after last modificati on) on 03/01/21 at 0145, Until Discontinu ed, Routine [facility] pseudoephed rine (SUDAFED) tablet 30 mg 2020-04 17:15: 00 Yes 30mg 30 mg, Oral, Q8H, First dose on 02/28/21 at 1215, Until Discontinu ed, Routine [facility] acetaminoph en (TYLENOL) tablet 1,000 mg 2020-04 17:12: 29 Yes 1000mg 1,000 mg, Oral, Q6HPRN, Starting on 02/28/21 at 1212, Until Discontinu ed, Routine, Pain (scale 1-3), Temp > 38.5 C [facility] sodium chloride 7% (HYPER-WAYNE) nebulizer solution 4 mL 2020-04 14:45: 00 02-28 16:05 :00 No 4mL 4 mL, Inhalation , ONCE, 1 dose, On 02/28/21 at 0945, Routine [facility] benzonatate (TESSALON PERLES) capsule 100 mg 2020-04 10:51: 05 Yes 100mg 100 mg, Oral, Q8HPRN, Starting on 02/28/21 at 0551, Until Discontinu ed, Routine, Cough [facility] HYDROcodone -acetaminop hen (NORCO 5) 5-325 mg tablet 1 tablet 2020-04 06:09: 17 03-02 07:08 :17 No 1{tbl} 1 tablet, Oral, Q6HPRN, Starting on 02/28/21 at 0109, Until 03/02/21 at 0108, Routine, Pain (scale 4-6) [facility] sulfur hexafluorid e microsphr (LUMASON) injection 5 mL 2020-04 18:30: 00 02-26 18:45 :00 No [id number] 5mL 5 mL, Intravenou s, ONCE, 1 dose, On Maureen 02/26/21 at 1345, Routine
bakery team member approving Restricted medication : IVELISSE MANRIQUE [facility] enoxaparin (LOVENOX) injection 40 mg 2020-04 14:00: 00 Yes 40mg 40 mg, Subcutaneo us, DAILY, First dose on Tue02/26/21 at 0900, Until Discontinu ed, Routine [facility] levoFLOXaci n in D5W (LEVAQUIN) 750 mg/150 mL Piggyback 750 mg 2020-04 08:30: 00 02-26 18:06 :28 No 750mg 750 mg, IV Piggyback, Q24H ABX, First dose on Maureen 02/26/21 at 0330, Until Discontinu ed, Administer over 90 Minutes, 150 mL
Reas on for Anti-Infec tive: Empiric Therapy for Suspected Infection& lt;br>Empi pola Therapy Site: Respirator y
Durat ion of therapy: 7 days [facility] vancomycin 1500 mg in NS 500 [...] y
Durat ion of therapy: 7 days [facility] ipratropium -albuteroL (DUONEB) 0.5 mg-3 mg(2.5 mg base)/3 mL nebulizer solution 3 mL 2020-04 06:15: 00 03-01 07:34 :57 No 3mL 3 mL, Inhalation , BID, First dose on Maureen 02/26/21 at 0115, Until Discontinu ed, Routine [facility] piperacilli n-tazobacta m (ZOSYN) 3.375 g in NaCl 0.9% (NS) 100 mL MINI-BAG 2020-04 05:00: 00 Yes 3.375g 3.375 g, IV Piggyback, Q6H ABX, First dose (after last reorder) on Maureen 02/26/21 at 0000, Until Discontinu ed, Administer over 30 Minutes, 100 mL
Reas on for Anti-Infec tive: Documented Infection& lt;br>Docu mented Infection Site: Respirator y
Durat ion of Therapy: Other (see Comments) [facility] furosemide (LASIX) injection 20 mg 2020-04 05:00: 00 02-26 04:35 :00 No 20mg 20 mg, IV Push, ONCE, 1 dose, On Maureen 02/26/21 at 0000, [facility] metoprolol (LOPRESSOR) injection 5 mg 2020-04 04:45: 00 02-26 04:04 :00 No 5mg 5 mg, Slow IV Push, ONCE, 1 dose, On Tue02/25/21 at 2345[facility] - Lispro (HumaLOG) + Fsbg Testing 2020-04 04:15: 00 Yes Subcutaneo us, TID MEALS, First dose on Tue02/25/21 at 2315, Until Discontinu ed, Routine [facility] aspirin chewable tablet 81 mg 2020-04 04:15: 00 Yes 81mg 81 mg, Oral, QAM WITH BREAKFAST, First dose on Tue02/25/21 at 2315, Until Discontinu ed, Routine [facility] FENTanyl PF (SUBLIMAZE (PF)) injection 50 mcg 2020-04 03:48: 36 03-11 22:51 :45 No 50ug 50 mcg, Slow IV Push, Q4HPRN, Starting on Tue02/25/21 at 2248, Until Tue03/11/21 at 1651, Routine, Pain (scale 7-10) [facility] metoprolol succinate XL (TOPROL XL) tablet 50 mg 2020-04 03:45: 00 Yes 50mg 50 mg, Oral, BID, First dose on Tue02/25/21 at 2245, Until Discontinu ed, Routine [facility] sennosides (SENOKOT) tablet 8.6 mg 2020-04 03:45: 00 Yes 8.6mg 8.6 mg, Oral, BID, First dose on Tue02/25/21 at 2245, Until Discontinu ed, Routine [facility] docusate (COLACE) capsule 100 mg 2020-04 03:45: 00 Yes 100mg 100 mg, Oral, BID, First dose on Tue02/25/21 at 2245, Until Discontinu ed, Routine [facility] omeprazole (PRILOSEC) capsule 40 mg 2020-04 03:45: 00 Yes 40mg 40 mg, Oral, DAILY, First dose on Tue02/25/21 at 2245, Until Discontinu ed, Routine [facility] pravastatin (PRAVACHOL) tablet 20 mg 2020-04 03:45: 00 Yes 20mg 20 mg, Oral, QHS, First dose on Tue02/25/21 at 2245, Until Discontinu ed, Routine [facility] OLANZapine (ZyPREXA) tablet 20 mg 2020-04 03:45: 00 Yes 20mg 20 mg, Oral, QPM, First dose on Tue02/25/21 at 2245, Until Discontinu ed, Routine [facility] benztropine (COGENTIN) tablet 2 mg 2020-04 03:45: 00 Yes 2mg 2 mg, Oral, QPM, First dose on Tue02/25/21 at 2245, Until Discontinu ed, Routine [facility] nitroglycer in (NITROSTAT) sublingual tablet 0.4 mg 2020-04 01:09: 31 Yes .4mg 0.4 mg, Sublingual , Q5MIN PRN, Starting on Tue02/25/21 at 2008, Until Discontinu ed, Routine, Chest pain [facility] morpHINE injection 4 mg 2020-04 01:09: 00 02-26 03:48 :46 No 4mg 4 mg, Slow IV Push, Q4HPRN, Starting on Tue02/25/21 at 2008, Until Tue02/25/21 at 2248, Routine, Pain (scale 7-10) [facility] HYDROcodone -acetaminop hen (NORCO 5) 5-325 mg tablet 1 tablet 2020-04 01:08: 58 02-28 01:07 :58 No 1{tbl} 1 tablet, Oral, Q6HPRN, Starting on Tue02/25/21 at 2007, Until Tue02/27/21 at 2006, Routine, Pain (scale 4-6) [facility] acetaminoph en (TYLENOL) tablet 650 mg 2020-04 01:08: 57 02-28 17:12 :47 No 650mg 650 mg, Oral, Q6HPRN, Starting on Tue02/25/21 at 2007, Until Tue02/28/21 at 1212, Routine, Pain (scale 1-3) [facility] LIPASE/PROT EASE/AMYLAS E (CREON ORAL) 2020-04 22:59: 11 02-25 00:00 :00 No Take by mouth. [facility] piperacilli n-tazobacta m (ZOSYN) 3.375 g in NaCl 0.9% (NS) 100 mL MINI-BAG 2020-04 22:30: 00 02-25 22:00 :00 No 3.375g 3.375 g, IV Piggyback, ONCE, 1 dose, On Tue02/25/21 at 1730, Administer over 30 Minutes, 100 mL
Reas on for Anti-Infec tive: Documented Infection< br>Documen deshaun Infection Site: Respirator y
Durat ion of Therapy: Other (see Comments) [facility] ondansetron (ZOFRAN (PF)) injection 4 mg 2020-04 21:39: 00 02-25 21:40 :00 No 4mg 4 mg, Slow IV Push, ONCE, 1 dose, On Tue02/25/21 at 1645, NICOLE [facility] FENTanyl PF (SUBLIMAZE (PF)) injection 50 mcg 2020-04 21:39: 00 02-25 21:40 :00 No 50ug 50 mcg, Slow IV Push, ONCE, 1 dose, On Tue02/25/21 at 1645, Routine [facility] iopamidol (ISOVUE 370-500 mL) injection 120 mL 2020-04 18:15: 00 02-25 18:14 :00 No [id number] 120mL 120 mL, Intravenou s, ONCE, 1 dose, On Tue02/25/21 at 1315, Routine [facility] NaCl 0.9% (NS) bolus infusion 1,000 mL 2020-04 17:15: 00 02-25 17:45 :00 No 1000mL at 999 mL/hr, 1,000 mL, IV Infusion, ONCE, 1 dose, On Tue02/25/21 at 1215, NICOLE [facility] iohexol (OMNIPAQUE 350 BULK-150 mL) injection 120 mL 06-19 23:00: 00 06-19 22:47 :00 No 120mL 120 mL, Intravenou s, ONCE, 1 dose, Maureen 06/19/20 at 1700, Routine [facility] NaCl 0.9% (NS) bolus infusion 1,000 mL 06-19 21:45: 00 06-20 00:00 :00 No 1000mL at 999 mL/hr, 1,000 mL, IV Infusion, ONCE, 1 dose, Maureen 06/19/20 at 1545, NICOLE [facility] naproxen sodium (ANAPROX DS) 550 mg tablet 06-19 00:00: 00 Yes [id number] 08 550mg Take 1 tablet by mouth 2 (two) times daily with meals. [facility] OLANZAPINE (ZYPREXA ORAL) 05-05 15:44: 36 Yes 10mg Take 10 mg by mouth every evening. [facility] LIPASE/PROT EASE/AMYLAS E (CREON ORAL) 05-05 15:44: 36 Yes Take by mouth. [facility] fenofibrate 145 mg tablet 05-05 00:00: 00 Yes [id number] 145mg Take 1 tablet by mouth daily. [facility] Insulin Glargine (BASAGLAR KWIKPEN U-100 INSULIN) 100 unit/mL (3 mL) injection 05-05 00:00: 00 Yes [id number] 60U inject 60 Units under the skin daily. [facility] carvedilol 25 mg tablet 12-23 00:00: 00 Yes [id number] 25mg Take 1 tablet by mouth 2 (two) times daily with meals. [facility] atorvastati n 40 mg tablet 12-23 00:00: 00 Yes [id number] 40mg Take 1 tablet by mouth at bedtime. [facility] metformin ER 750 mg 24 hr tablet 12-23 00:00: 00 Yes 750mg Take 1 tablet by mouth 2 (two) times daily. [facility] losartan 50 mg tablet 12-23 00:00: 00 Yes 50mg Take 1 tablet by mouth daily. [facility] ibuprofen 800 mg tablet 09-02 00:00: 00 Yes 800mg Take 1 tablet by mouth every 8 (eight) hours as needed for Pain (scale 4-6). [facility] Niacin ER Niacin ER Yes Bee Millender 1 capsule with food [facility] Atorvastati n Calcium Atorvastati n Calcium Yes Bee Millender 1 tablet in evening [facility] Coreg Coreg Yes Bee Millender 1 tablet [facility] Mobic Mobic Yes Bee Millender 1 tablet [facility] Lofibra Lofibra Yes Bee Millender 1 tablet with food [facility] Indomethaci n Indomethaci n Yes Bee Millender 1 capsule with food or milk [facility] Creon Creon Yes Bee Millender not defined [facility] Metformin HCl Metformin HCl Yes Bee Millender 1 tablet with meals [facility] Lantus SoloStar Lantus SoloStar Yes Bee Millender 60 units [facility] Losartan Potassium Losartan Potassium Yes Bee Millender 1 tablet [facility] Aspir-Low Aspir-Low Yes Bee Millender 1 tablet [facility] Zyprexa Zyprexa Yes Bee Millender 1 tablet [facility] Ketoprofen Ketoprofen Yes Bee Millender 1 capsule [facility] Vital Signs Vital Name Observation Time Observation Value Comments S ource Systolic blood pressure 2024-05-09 02:40:00 186 mm[Hg] [facility] acute hospital Diastolic blood pressure 2024-05-09 02:40:00 123 mm[Hg] General acute hospital Heart rate 2024-05-09 02:40:00 108 /min [facility] Respiratory rate 2024-05-09 02:40:00 18 /min [facility] Oxygen saturation in Arterial blood by Pulse oximetry 2024-05-09 02:40:00 99 /min General acute hospital Body temperature 2024-05-09 01:15:00 36.44 Kristi [facility] Body weight 2024-05-09 01:15:00 102.059 kg [facility] BMI 2024-05-09 01:15:00 33.23 kg/m2 [facility] Systolic blood pressure 2022-11-23 18:58:00 134 mm[Hg] [facility] acute hospital Diastolic blood pressure 2022-11-23 18:58:00 95 mm[Hg] General acute hospital Heart rate 2022-11-23 18:58:00 86 /min [facility] Oxygen saturation in Arterial blood by Pulse oximetry 2022-11-23 18:58:00 96 /min [facility] acute hospital Body temperature 2022-11-23 18:57:00 36.67 Kristi [facility] Respiratory rate 2022-11-23 18:57:00 20 /min [facility] Body height 2022-11-23 18:57:00 175.3 cm [facility] Body weight 2022-11-23 18:57:00 113.399 kg [facility] BMI 2022-11-23 18:57:00 36.92 kg/m2 [facility] Systolic blood pressure 2022-10-12 19:42:00 127 mm[Hg] General acute hospital Diastolic blood pressure 2022-10-12 19:42:00 85 mm[Hg] [facility] acute hospital Body temperature 2022-10-12 19:42:00 36.67 Kristi [facility] Respiratory rate 2022-10-12 19:42:00 18 /min [facility] Body height 2022-10-12 19:42:00 177.8 cm [facility] Body weight 2022-10-12 19:42:00 110.043 kg [facility] BMI 2022-10-12 19:42:00 34.81 kg/m2 [facility] Oxygen saturation in Arterial blood by Pulse oximetry 2022-10-12 19:42:00 96 /min [facility] acute hospital Heart rate 2022-09-24 21:50:00 112 /min [facility] Oxygen saturation in Arterial blood by Pulse oximetry 2022-09-24 21:50:00 95 /min [facility] acute hospital Systolic blood pressure 2022-09-24 21:45:00 137 mm[Hg] General acute hospital Diastolic blood pressure 2022-09-24 21:45:00 84 mm[Hg] General acute hospital Body temperature 2022-09-24 21:00:00 36.33 Kristi [facility] Respiratory rate 2022-09-24 21:00:00 18 /min [facility] Body height 2022-09-24 15:28:00 177.8 cm [facility] Body weight 2022-09-24 15:28:00 113.399 kg [facility] BMI 2022-09-24 15:28:00 35.87 kg/m2 [facility] Systolic blood pressure 2022-09-24 15:28:00 135 mm[Hg] General acute hospital Diastolic blood pressure 2022-09-24 15:28:00 93 mm[Hg] General acute hospital Heart rate 2022-09-24 15:28:00 70 /min [facility] Body temperature 2022-09-24 15:28:00 36.33 Kristi [facility] Respiratory rate 2022-09-24 15:28:00 16 /min [facility] Body height 2022-09-24 15:28:00 177.8 cm [facility] Body weight 2022-09-24 15:28:00 113.399 kg [facility] BMI 2022-09-24 15:28:00 35.87 kg/m2 [facility] Oxygen saturation in Arterial blood by Pulse oximetry 2022-09-24 15:28:00 96 /min [facility] acute hospital Systolic blood pressure 2022-08-12 13:49:00 141 mm[Hg] General acute hospital Diastolic blood pressure 2022-08-12 13:49:00 97 mm[Hg] General acute hospital Heart rate 2022-08-12 13:48:00 78 /min [facility] Body temperature 2022-08-12 13:48:00 36.06 Kristi [facility] Respiratory rate 2022-08-12 13:48:00 18 /min [facility] Body height 2022-08-12 13:48:00 177.8 cm [facility] Body weight 2022-08-12 13:48:00 113.399 kg [facility] BMI 2022-08-12 13:48:00 35.87 kg/m2 [facility] Oxygen saturation in Arterial blood by Pulse oximetry 2022-08-12 13:48:00 97 /min [facility] acute hospital Systolic blood pressure 2021-03-12 13:39:00 111 mm[Hg] General acute hospital Diastolic blood pressure 2021-03-12 13:39:00 70 mm[Hg] General acute hospital Heart rate 2021-03-12 13:39:00 78 /min [facility] Body temperature 2021-03-12 13:39:00 36.39 Kristi [facility] Respiratory rate 2021-03-12 13:39:00 18 /min [facility] Oxygen saturation in Arterial blood by Pulse oximetry 2021-03-12 13:39:00 95 /min [facility] acute hospital Body weight 2021-03-10 11:46:00 112.492 kg [facility] BMI 2021-03-10 11:46:00 35.58 kg/m2 [facility] Body height 2021-02-26 01:58:00 177.8 cm [facility] Systolic blood pressure 2020-06-19 23:00:00 135 mm[Hg] General acute hospital Diastolic blood pressure 2020-06-19 23:00:00 95 mm[Hg] General acute hospital Heart rate 2020-06-19 23:00:00 92 /min [facility] Respiratory rate 2020-06-19 23:00:00 19 /min [facility] Oxygen saturation in Arterial blood by Pulse oximetry 2020-06-19 23:00:00 98 /min [facility] acute hospital Body temperature 2020-06-19 21:08:00 36.56 Kristi [facility] Body weight 2020-06-19 21:08:00 90.719 kg [facility] BMI 2020-06-19 21:08:00 29.53 kg/m2 [facility] Systolic blood pressure 2020-06-11 22:40:00 153 mm[Hg] General acute hospital Diastolic blood pressure 2020-06-11 22:40:00 108 mm[Hg] General acute hospital Heart rate 2020-06-11 22:40:00 115 /min [facility] Body temperature 2020-06-11 22:40:00 37.33 Kristi [facility] Respiratory rate 2020-06-11 22:40:00 18 /min [facility] Body weight 2020-06-11 22:40:00 113.399 kg [facility] BMI 2020-06-11 22:40:00 36.92 kg/m2 [facility] Oxygen saturation in Arterial blood by Pulse oximetry 2020-06-11 22:40:00 98 /min [facility] acute hospital Procedures Procedure Date / Time Performed Performing Clinician Source POCT GLUCOSE (AUTOMATED) 2022-09-24 21:11:00 Essence Landry [facility] POCT GLUCOSE (AUTOMATED) 2022-09-24 21:11:00 Essence Landry [facility] INGUINAL HERNIORRHAPHY 2022-09-24 17:17:00 Dheeraj Landry [facility] POCT GLUCOSE (AUTOMATED) 2022-09-24 15:35:00 Essence Landry [facility] POCT GLUCOSE (AUTOMATED) 2022-09-24 15:35:00 Essence Landry [facility] DAY SURGERY - [facility] 2022-09-24 05:01:00 Doctor Anika ssigned, [place] [facility] EXTERNAL PROVIDER RECORDS 2022-08-18 05:01:00 Do ctor Unassigned, [place] [facility] EXTERNAL PROVIDER RECORDS 2022-08-18 05:01:00 Do ctor Unassigned, [place] [facility] PATIENT TEACHING/INSTRUCTIONS- OUTPATIENT 2022-08-16 05:01:00 Doctor Unassigned, [place] [facility] DISCLOSURE AND CONSENT, MEDICAL AND SURGICAL PROCEDURES 2022-08-13 05:01:00 Doctor Unassigned, [place] [facility] DISCLOSURE AND CONSENT, MEDICAL AND SURGICAL PROCEDURES 2022-08-13 05:01:00 Doctor Unassigned, [place] [facility] EXTERNAL PROVIDER RECORDS 2022-08-10 05:01:00 Do ctor Unassigned, [place] [facility] XR CHEST 1 VW 2021-03-12 07:52:00 Chaim Ji [facility] POCT GLUCOSE (AUTOMATED) 2021-03-12 03:03:00 Gorge Tavarez [facility] POCT GLUCOSE (AUTOMATED) 2021-03-11 22:42:00 Corby nahomi [facility] POCT GLUCOSE (AUTOMATED) 2021-03-11 17:48:00 Corby nahomi [facility] POCT GLUCOSE (AUTOMATED) 2021-03-11 14:06:00 Gorge Tavarez [facility] CBC WITH DIFF 2021-03-11 10:11:00 Fred Marquez [facility] POCT GLUCOSE (AUTOMATED) 2021-03-10 23:38:00 Corby, [facility] POCT GLUCOSE (AUTOMATED) 2021-03-10 17:46:00 Corby [facility] POCT GLUCOSE (AUTOMATED) 2021-03-10 13:56:00 Corby [facility] MAGNESIUM 2021-03-10 11:45:00 Fred Marquez [facility] BASIC METABOLIC PANEL (NA, K, CL, CO2, GLUCOSE, BUN, CREATININE, CA) 2021-03-10 11:45:00 Fred Marquez [facility] CBC WITH DIFF 2021-03-10 11:45:00 [facility] XR CHEST 1 VW 2021-03-10 02:30:49 [facility] POCT GLUCOSE (AUTOMATED) 2021-03-09 22:40:00 Corby [facility] POCT GLUCOSE (AUTOMATED) 2021-03-09 17:10:00 Corby [facility] POCT GLUCOSE (AUTOMATED) 2021-03-09 13:43:00 Corby [facility] POCT GLUCOSE (AUTOMATED) 2021-03-09 03:25:00 Corby [facility] POCT GLUCOSE (AUTOMATED) 2021-03-08 22:35:00 Corby [facility] XR CHEST 1 VW 2021-03-08 21:55:38 [facility] XR CHEST 1 VW 2021-03-08 18:47:03 [facility] POCT GLUCOSE (AUTOMATED) 2021-03-08 17:23:00 Corby [facility] POCT GLUCOSE (AUTOMATED) 2021-03-08 13:23:00 Corby [facility] MAGNESIUM 2021-03-08 12:06:00 Fred Marquez [facility] BASIC METABOLIC PANEL (NA, K, CL, CO2, GLUCOSE, BUN, CREATININE, CA) 2021-03-08 12:06:00 Fred Marquez [facility] CBC WITH DIFF 2021-03-08 12:05:00 [facility] POCT GLUCOSE (AUTOMATED) 2021-03-08 01:58:00 Corby [facility] POCT GLUCOSE (AUTOMATED) 2021-03-07 22:48:00 Corby [facility] POCT GLUCOSE (AUTOMATED) 2021-03-07 17:13:00 Corby [facility] POCT GLUCOSE (AUTOMATED) 2021-03-07 14:37:00 Corby [facility] POCT GLUCOSE (AUTOMATED) 2021-03-06 22:23:00 Corby [facility] POCT GLUCOSE (AUTOMATED) 2021-03-06 18:13:00 Corby [facility] CT THORAX WO CONTRAST 2021-03-06 17:19:17 Dasha Swansonderosio [facility] POCT GLUCOSE (AUTOMATED) 2021-03-06 13:55:00 Corby [facility] POCT GLUCOSE (AUTOMATED) 2021-03-06 02:53:00 Corby [facility] POCT GLUCOSE (AUTOMATED) 2021-03-05 21:46:00 Corby [facility] XR CHEST 1 VW 2021-03-05 18:48:00 [facility] POCT GLUCOSE (AUTOMATED) 2021-03-05 17:47:00 Corby [facility] POCT GLUCOSE (AUTOMATED) 2021-03-05 13:51:00 Corby [facility] MAGNESIUM 2021-03-05 10:03:00 Fred Marquez [facility] BASIC METABOLIC PANEL (NA, K, CL, CO2, GLUCOSE, BUN, CREATININE, CA) 2021-03-05 10:03:00 Fred Marquez [facility] CBC WITH DIFF 2021-03-05 10:02:00 [facility] POCT GLUCOSE (AUTOMATED) 2021-03-04 22:05:00 Corby [facility] CYTO PLEURAL FLUID 2021-03-04 21:57:00 [facility] COUNT 2021-03-04 21:55:00 Laury Swanson [facility] T.PROTEIN BODY FLUID 2021-03-04 21:54:00 Jake Swanson [facility] FUNGUS (ROUTINE) CULTURE 2021-03-04 21:54:00 Dasha Swanson [facility] BODY FLUID CULTURE(AEROBIC/ANAEROBIC ) 2021-03-04 21:54:00 Jake Swanson [facility] LDH TOTAL BODY FLUID 2021-03-04 21:54:00 Jake Swanson [facility] XR CHEST 1 VW 2021-03-04 21:41:43 Jake Swanson [facility] POCT GLUCOSE (AUTOMATED) 2021-03-04 17:11:00 Gorge Tavarez [facility] XR CHEST 1 VW 2021-03-04 16:12:48 [facility] MAGNESIUM 2021-03-04 15:25:00 Fred Marquez [facility] BASIC METABOLIC PANEL (NA, K, CL, CO2, GLUCOSE, BUN, CREATININE, CA) 2021-03-04 15:25:00 Fred Marquez [facility] POCT GLUCOSE (AUTOMATED) 2021-03-04 13:30:00 Gorge Tavarez [facility] LACTATE DEHYDROGENASE 2021-03-04 09:06:00 [facility] CBC WITH DIFF 2021-03-04 09:06:00 [facility] THORAX WO CONTRAST 2021-03-03 20:30:51 Josh Marquez [facility] POCT GLUCOSE (AUTOMATED) 2021-03-03 17:53:00 Gorge Tavarez [facility] POCT GLUCOSE (AUTOMATED) 2021-03-03 13:30:00 Gorge Tavarez [facility] PHOSPHORUS 2021-03-03 11:30:00 Chaim Ji [facility] MAGNESIUM 2021-03-03 11:30:00 Chaim Ji [facility] BASIC METABOLIC PANEL (NA, K, CL, CO2, GLUCOSE, BUN, CREATININE, CA) 2021-03-03 [facility]:30[facility] 2021-03-03 11:30:00 Chaim Ji [facility] POCT GLUCOSE (AUTOMATED) 2021-03-03 01:52:00 Corby [facility] POCT GLUCOSE (AUTOMATED) 2021-03-02 22:35:00 Corby [facility] POCT GLUCOSE (AUTOMATED) 2021-03-02 17:42:00 Corby [facility] POCT GLUCOSE (AUTOMATED) 2021-03-02 13:35:00 Corby [facility] COMP. METABOLIC PANEL (69104) 2021-03-02 10:53:00 [facility] CBC WITH DIFF 2021-03-02 10:52:00 Chaim Ji [facility] POCT GLUCOSE (AUTOMATED) 2021-03-02 03:55:00 Corby [facility] POCT GLUCOSE (AUTOMATED) 2021-03-01 22:54:00 Corby [facility] POCT GLUCOSE (AUTOMATED) 2021-03-01 17:34:00 Corby [facility] POCT GLUCOSE (AUTOMATED) 2021-03-01 14:28:00 Corby [facility] PHOSPHORUS 2021-03-01 09:22:[address] [facility] MAGNESIUM 2021-03-01 09:22:[address] [facility] BASIC METABOLIC PANEL (NA, K, CL, CO2, GLUCOSE, BUN, CREATININE, CA) 2021-03-01 09:22[facility] 2021-03-01 09:22:00 Chaim Ji [facility] POCT GLUCOSE (AUTOMATED) 2021-03-01 00:42:00 Corby [facility] POCT GLUCOSE (AUTOMATED) 2021-02-28 22:04:00 Gorge Tavarez [facility] SPUTUM CULTURE 2021-02-28 17:09:00 Chaim Ji [facility] POCT GLUCOSE (AUTOMATED) 2021-02-28 16:45:00 Gorge Tavarez [facility] PNEUMOCOCCAL ANTIGEN 2021-02-28 14:11:00 Dana Ji [facility] POCT GLUCOSE (AUTOMATED) 2021-02-28 12:52:00 Corby [facility] COMP. METABOLIC PANEL ([id number]) 2021-02-28 11:09:00 Corby [facility] CBC WITH DIFF 2021-02-28 11:09:00 Chaim Ji [facility] POCT GLUCOSE (AUTOMATED) 2021-02-28 01:52:00 Corby [facility] POCT GLUCOSE (AUTOMATED) 2021-02-27 21:46:00 Corby [facility] POCT GLUCOSE (AUTOMATED) 2021-02-27 16:40:00 Corby [facility] AFB CULTURE 2021-02-27 13:26:00 [facility] MYCOBACTERIUM TUBERCULOSIS COMPLEX PCR 2021-02-27 13:26:00 Leigha Thorne [facility] POCT GLUCOSE (AUTOMATED) 2021-02-27 12:29:00 Corby [facility] POCT GLUCOSE (AUTOMATED) 2021-02-27 11:07:00 Gorge Tavarez [facility] PHOSPHORUS 2021-02-27 07:00:[address] [facility] MAGNESIUM 2021-02-27 07:00:[address] [facility] COMP. METABOLIC PANEL ([id number]) 2021-02-27 07:00:00 Gorge Tavarez [facility] VANCOMYCIN TROUGH 2021-02-27 07:00:00 Gorge Tavarez [facility] CBC WITH DIFF 2021-02-27 07:00:00 Chaim Ji [facility] POCT GLUCOSE (AUTOMATED) 2021-02-27 05:01:00 Gorge Tavarez [facility] POCT GLUCOSE (AUTOMATED) 2021-02-27 00:19:00 Gorge Tavarez [facility] TRANSTHORACIC ECHO (TTE) COMPLETE W/ CONTRAST 2021-02-26 18:22:00 Gorge Tavarez [facility] LACTATE DEHYDROGENASE 2021-02-26 17:07:00 Dash Tavarez [facility] POCT GLUCOSE (AUTOMATED) 2021-02-26 16:37:00 Corby nahomi [facility] MRSA / MSSA SCREEN BY PCR, JAYDE 2021-02-26 16:16:00 Fara Bettencourt [facility] XR CHEST 1 VW 2021-02-26 15:58:57 Jake Swanson [facility] IR THORACENTESIS WITH IMAGING 2021-02-26 15:45:04 Gorge Tavarez [facility] AMYLASE BODY FLUID 2021-02-26 15:15:00 Corby nahomi [facility] GLUCOSE BODY FLUID 2021-02-26 15:15:00 Corby nahomi [facility] PH, BODY FLUID 2021-02-26 15:15:00 Gorge Tavarez [facility] T.PROTEIN BODY FLUID 2021-02-26 15:15:00 Kady Tavarez [facility] LDH TOTAL BODY FLUID 2021-02-26 15:15:00 Kady Tavarez [facility] BODY FLUID DIRECT COUNT 2021-02-26 15:15:00 Cruz Tavarez [facility] FUNGUS (ROUTINE) CULTURE 2021-02-26 15:15:00 [place]by nahomi [facility] BODY FLUID CULTURE(AEROBIC/ANAEROBIC ) 2021-02-26 15:15:00 Corby [facility] CYTO PLEURAL FLUID 2021-02-26 15:15:00 Chaim Ji [facility] AFB CULTURE 2021-02-26 14:51:00 Leigha Thorne [facility] MYCOBACTERIUM TUBERCULOSIS COMPLEX PCR 2021-02-26 14:51:00 Leigha Thorne [facility] POCT GLUCOSE (AUTOMATED) 2021-02-26 14:22:00 Gorge Tavarez [facility] PROTEIN TOTAL 2021-02-26 09:26:00 Gorge Tavarez [facility] URIC ACID 2021-02-26 09:26:00 Gorge [facility] AMYLASE 2021-02-26 09:26:00 Gorge [facility] MAGNESIUM 2021-02-26 09:26:00 Chaim Ji [facility] FERRITIN SERUM 2021-02-26 09:26:00 Gorge Tavarez [facility] TROPONIN I 2021-02-26 09:26:00 [place] nah[facility] THYROID STIMULATING HORMONE 2021-02-26 09:26:00 Gorge Tavarez [facility] COMP. METABOLIC PANEL ([id number]) 2021-02-26 09:26:00 Corby [facility] LIPID PANEL ([id number])(TOTAL CHOLESTEROL, TRIGLYCERIDES, HDL) 2021-02-26 09:26:00 Corby [facility] IRON PANEL 2021-02-26 09:26:00 Gorge [facility] CBC WITH DIFF 2021-02-26 09:26:00 Chaim Ji [facility] N-TERMINAL PRO-BNP 2021-02-26 09:26:00 Gorge Tavarez [facility] HIV 1/2 AG-AB WITH REFLEX 2021-02-26 09:26:00 Chaim Ji [facility] AC ABG + LACTIC ACID 2021-02-26 08:24:00 Kady Tavarez [facility] XR CHEST 1 VW 2021-02-26 06:28:24 Gorge Tavarez [facility] ACUTE CARE VENOUS BLOOD GAS 2021-02-26 06:21:00 Gorge Tavarez [facility] HB ECG ROUTINE & RHYTHM STRIP 2021-02-26 05:47:31 Gorge Tavarez [facility] BLOOD CULTURE SCREEN 2021-02-26 05:01:00 Kady Tavarez [facility] LACTATE DEHYDROGENASE 2021-02-26 05:01:00 Dash Tavarez [facility] VITAMIN B12, LEVEL 2021-02-26 05:01:00 Gorge Tavarez [facility] C-REACTIVE PROTEIN 2021-02-26 05:01:00 Gorge Tavarez [facility] TROPONIN I 2021-02-26 05:01:00 [facility] SED[facility] RATE 2021-02-26 05:01:00 Corby nahomi [facility] VITAMIN D, 25-OH 2021-02-26 05:01:00 [facility] 2021-02-26 [facility]:01[facility] 2021-02-26 04:59:00 Cruz Tavarez [facility] POCT GLUCOSE (AUTOMATED) 2021-02-26 04:32:00 Gorge Tavarez [facility] CT ABDOMEN PELVIS W CONTRAST 2021-02-25 18:36:20 Franklin Chamtan [facility] CT THORAX W CONTRAST 2021-02-25 18:36:20 Yadiel Chatman [facility] PHOSPHORUS 2021-02-25 16:33:00 Chaim Ji [facility] LIPASE 2021-02-25 16:33:00 Franklin Chatman [facility] TROPONIN I 2021-02-25 16:33:00 Franklin Chatman [facility] COMP. METABOLIC PANEL ([id number]) 2021-02-25 16:33:00 Franklin Chatman [facility] SALICYLATE 2021-02-25 16:33:00 Franklin Chatman [facility] ETHANOL 2021-02-25 16:33:00 Franklin Chatman [facility] DIFF CONSULT INTERPRETATION 2021-02-25 16:33:00 Gorge Tavarez [facility] CBC WITH DIFF 2021-02-25 16:33:00 Franklin Chatman [facility] GLYCOSYLATED HEMOGLOBIN (A1C) 2021-02-25 16:33:00 Gorge Tavarez [facility] PROTHROMBIN TIME / INR 2021-02-25 16:33:00 Troy Chatman [facility] ACTIVATED PARTIAL THRMPLAS ASAY 2021-02-25 16:33:00 Franklin Chatman [facility] N-TERMINAL PRO-BNP 2021-02-25 16:33:00 Franklin Chatman [facility] AC PANEL 21 + LACTIC ACID 2021-02-25 16:32:00 Franklin Chatman [facility] COVID-19 (ID NOW RAPID TESTING) 2021-02-25 16:27:00 Franklin Chatman [facility] LAB ONLY COVID INTERPRETATION 2021-02-25 16:27:00 Franklin Chatman [facility] URINALYSIS 2021-02-25 16:26:00 Franklin Chatman [facility] URINE DRUG (IMMUNOASSAY) - COMPREHENSIVE DRUG SCREEN W/O REFLEX 2021-02-25 16:26:00 Franklin Chatman [facility] EKG-12 LEAD 2021-02-25 16:00:24 Franklin Chatman [facility] AUTHORIZATION FOR RELEASE OF PHI 2020-11-13 05:01:00 Doctor Unassigned, [place] [facility] CT ABDOMEN PELVIS W CONTRAST 2020-06-19 22:50:39 Nikolay Schroeder [facility] BASIC METABOLIC PANEL (NA, K, CL, CO2, GLUCOSE, BUN, CREATININE, CA) 2020-06-19 21:56:00 Nikolay Schroeder [facility] CBC WITH DIFF 2020-06-19 21:56:00 Nikolay Schroeder [facility] URINALYSIS 2020-06-19 21:56:00 Nikolay Schroeder [facility] COVID-19 (ID NOW RAPID TESTING) 2020-06-19 21:56:00 Nikolay Schroeder [facility] NOTICE OF PRIVACY PRACTICES 2020-06-19 21:00:39 Doctor Unassigned, [place] [facility] CONSENT/REFUSAL FOR DIAGNOSIS AND TREATMENT 2020-06-19 21:00:23 Doctor Unassigned, [place] [facility] Center Encounters Start Date/Time End Date/Time Encounter Type Admission Type Attending [facility] Care Department Encounter ID Source 2021-02-22 01:27:[address] [facility] [id number] [facility] 2021-02-21 23:50:[address] [facility] [id number] [facility] 2024-05-08 19:17:00 2024-05-08 20:53:00 Emergency X CAMDENJERRIXOCHITL RUST ERT [id number] [facility] 2024-05-08 19:17:00 2024-05-08 20:53:00 Emergency Xochitl Freeman [facility]) 1.2.840.114 350.1.13.10 4.2.7.2.686 [id number] [facility] 2022-11-23 13:15:00 2022-11-23 13:30:00 Office Visit Essence Landry [facility] 1.2.840.114 350.1.13.10 4.2.7.2.686 [id number] [facility] 2022-11-23 13:15:00 2022-11-23 13:15:00 Outpatient R ESSENCE LANDRY [facility] [id number] [facility] 2022-10-12 14:00:00 2022-10-12 14:15:00 Office Visit Essence Landry [facility] 1.2.840.114 350.1.13.10 4.2.7.2.686 [id number] [facility] 2022-10-12 14:00:00 2022-10-12 14:00:00 Outpatient R ESSENCE LANDRY [facility] [id number] [facility] 2022-09-24 10:13:00 2022-09-24 17:05:00 Outpatient R ESSENCE LANDRY [facility] [id number] [facility] 2022-09-24 10:13:00 2022-09-24 17:05:00 Hospital Encounter Essence Landry [facility] 1.2.840.114 350.1.13.10 4.2.7.2.686 [id number] [id number] [facility] 2022-09-24 12:00:00 2022-09-24 15:06:00 [facility] 1.2.840.114 350.1.13.10 4.2.7.2.686 [id number] [facility] 2022-09-24 00:00:00 2022-09-24 00:00:00 Orders Only Doctor Unassigned, [place] [facility] 1.2.840.114 350.1.13.10 4.2.7.2.686 [id number] [id number] [facility] 2022-08-16 00:00:00 2022-08-16 00:00:00 Telephone Essence Landry [facility] 1.2.840.114 350.1.13.10 4.2.7.2.686 [id number] [facility] 2022-08-16 00:00:00 2022-08-16 00:00:00 Orders Only Doctor Unassigned, [place] [facility] 1.2.840.114 350.1.13.10 4.2.7.2.686 [id number] [id number] [facility] 2022-08-12 09:00:00 2022-08-12 11:17:17 Outpatient R ESSENCE LANDRY [facility] [id number] [facility] 2022-08-12 09:00:00 2022-08-12 11:17:17 Office Visit Essence Landry [facility] 1.114 350.1.13.10 4.2.7.2.686 [id number] [facility] 2022-08-10 15:00:00 2022-08-10 15:00:00 Outpatient R ESSENCE LANDRY [facility] [id number] [facility] 2022-08-10 00:00:00 2022-08-10 00:00:00 Orders Only Doctor Unassigned, [place] [facility] 1.114 350.1.13.10 4.2.7.2.686 [id number] [id number] [facility] 2021-03-13 00:00:00 2021-03-13 00:00:00 Transition of Care Laney Roy VEL 1..114 350.1.13.10 4.2.7.2.686 [id number] [facility] 2021-02-25 11:10:00 2021-03-12 13:40:00 Inpatient X GORGE TAVAREZ [facility] [id number] [facility] 2021-02-25 11:10:00 2021-03-12 13:40:00 Hospital Encounter Franklin Chatman Yaman Lakhani, Adnan [facility] 1..114 350.1.13.10 4.2.7.2.686 [id number] [facility] 2020-11-13 00:00:00 2020-11-13 00:00:00 Orders Only Doctor Unassigned, [place] [facility] 1..114 350.1.13.10 4.2.7.2.686 [id number] [facility] 2020-07-04 10:45:00 2020-07-04 10:45:00 Outpatient XOCHITL RANDALL [facility] [id number] [facility] 2020-06-19 15:11:00 2020-06-19 19:23:00 Emergency DoniphanNikolay hartman [facility] 1.2.840.114 350.1.13.10 4.2.7.2.686 [id number] [facility] 2020-06-19 00:00:00 2020-06-19 00:00:00 Orders Only Doctor Unassigned, [place] [facility] 1.2.840.114 350.1.13.10 4.2.7.2.686 [id number] [id number] [facility] 2020-06-11 16:42:00 2020-06-11 18:10:00 Emergency [facility] 1.2.840.114 350.1.13.10 4.2.7.2.686 [id number] 014 [id number] [facility] 2017-10-13 09:10:00 2017-10-13 09:10:00 Outpatient [facility] [id number] [facility] 2017-10-13 08:45:00 2017-10-13 08:45:00 Outpatient [facility] [id number] [facility] 2017-07-13 09:45:00 2017-07-13 09:45:00 Outpatient [facility] [id number] [facility] Results Test Description Test Time Test Comments Results Result Co mments [facility] 21:13:50* Test Item Value Reference Range Interpretation Comme nts POCT GLU (test code = 0033995969) 295 mg/dL 70-110 H Lab Interpretation (test cod e = 48978-8) Abnormal [facility] GLUCOSE (AUTOMATED)2022-09-24 15:38:09* Test Item Value Reference Range Interpretation Comme nts POCT GLU (test code = 4990644144) 284 mg/dL 70-110 H Lab Interpretation (test cod e = 22121-8) Abnormal [facility] GLUCOSE (AUTOMATED)2022-09-24 15:38:09* Test Item Value Reference Range Interpretation Comme nts POCT GLU (test code = 6941265474) 284 mg/dL 70-110 H Lab Interpretation (test cod e = 98329-6) Abnormal [facility] GLUCOSE (AUTOMATED)2021-03-12 03:12:44* Test Item Value Reference Range Interpretation Comme nts POCT GLU (test code = 1340350781) 110 mg/dL 70-110 Lab Interpretation (test cod e = 02340-5) Normal [facility] GLUCOSE (AUTOMATED)2021-03-11 22:45:29* Test Item Value Reference Range Interpretation Comme nts POCT GLU (test code = 0381993475) 123 mg/dL 70-110 H Lab Interpretation (test cod e = 92107-9) Abnormal [facility] GLUCOSE (AUTOMATED)2021-03-11 17:54:49* Test Item Value Reference Range Interpretation Comme nts POCT GLU (test code = 3419801918) 139 mg/dL 70-110 H Lab Interpretation (test cod e = 54410-3) Abnormal [facility] GLUCOSE (AUTOMATED)2021-03-11 14:20:36* Test Item Value Reference Range Interpretation Comme nts POCT GLU (test code = 3677878068) 109 mg/dL 70-110 Lab Interpretation (test cod e = 81487-7) Normal [facility] WITH [id number] 11:18:50* Test Item Value Reference Range Interpretation [...] 32.2 g/dL 31.2-35.0 RDW-SD (test code = 31182-2) 41.5 fL 38.5-51.6 RDW-CV (test code = 788-0) 12.6 % 12.1-15.4 PLT (test code = 777-3) See_Comment H [Automated messa ge] The system which generated this result transmitted reference range: 150 - 328 10*3/?L. The reference range was not used to interpret this result as normal/abnormal. MPV (test code = 00648-8) 9.8 fL 9.8-13.0 NRBC/100 WBC (test code = 7780353879) See_Comment [Automated Datto ssage] The system which generated this result transmitted reference range: 0.0 - 10.0 /100 WBCs. The reference range was not used to interpret this result as normal/abnormal. NRBC x10^3 (test code = 3964971154) <0.01 See_Comment [Automated messa ge] The system which generated this result transmitted reference range: 10*3/?L. The reference range was not used to interpret this result as normal/abnormal. GRAN MAT (NEUT) % (test code = 770-8) 55.2 % IMM GRAN % (test code = 0798954514) 0.60 % LYMPH % (test code = 736-9) 31.4 % MONO % (test code = 5905-5) 9.3 % EOS % (test code = 713-8) 2.7 % BASO % (test code = 706-2) 0.8 % GRAN MAT x10^3(ANC) (test code = 1242389856) 3.44 10*3/uL 1.99-6.95 IMM GRAN x10^3 (test code = 1293392851) 0.04 10*3/uL 0.00-0.06 LYMPH x10^3 (test code = 731-0) 1.96 10*3/uL 1.09-3.23 MONO x10^3 (test code = 742-7) 0.58 10*3/uL 0.36-1.02 EOS x10^3 (test code = 711-2) 0.17 10*3/uL 0.06-0.53 BASO x10^3 (test code = 704-7) 0.05 10*3/uL 0.01-0.09 Lab Interpretation (test code = 26386-9) Abnormal [facility] GLUCOSE (AUTOMATED)2021-03-10 23:57:30* Test Item Value Reference Range Interpretation Comme nts POCT GLU (test code = 8184865502) 153 mg/dL 70-110 H Lab Interpretation (test cod e = 72134-5) Abnormal [facility] GLUCOSE (AUTOMATED)2021-03-10 17:53:36* Test Item Value Reference Range Interpretation Comme nts POCT GLU (test code = 7461760087) 139 mg/dL 70-110 H Lab Interpretation (test cod e = 38144-7) Abnormal [facility] GLUCOSE (AUTOMATED)2021-03-10 14:30:24* Test Item Value Reference Range Interpretation Comme nts POCT GLU (test code = 5502483146) 111 mg/dL 70-110 H Lab Interpretation (test cod e = 50236-3) Abnormal [facility] METABOLIC PANEL (NA, K, CL, CO2, GLUCOSE, BUN, CREATININE, CA)2021-03-10 13:38:22* Test Item Value Reference Range Interpretation Comme nts NA (test code = 3050590389) 134 mmol/L 135-145 L K (test code = 8867703744) 3.9 mmol/L 3.5-5.0 CL (test code = 2863276223) 103 mmol/L 98-108 CO2 TOTAL (test code = 4825609478) 28 mmol/L 23-31 AGAP (test code = 2336648815) 2-16 BUN (test code = 2312893996) 10 mg/dL 7-23 GLUCOSE (test code = 0604933655) 116 mg/dL 70-110 H CREATININE (test code = 2771588739) 0.54 mg/dL 0.60-1.25 L CALCIUM (test code = 6108846082) 8.9 mg/dL 8.6-10.6 eGFR (test code = 8336634635) mL/min/1.73m2 CATALINA (test code = CATALINA) Association [...] imaging tests). Lab Interpretation (test code = 15994-4) [facility] 13:38:22* Test Item Value Reference Range Interpretation Comme nts MAGNESIUM (test code = 5741446204) 2.2 mg/dL 1.7-2.4 Lab Interpretation (test cod e = 22829-5) Normal [facility] WITH [id number] 12:21:36* Test Item Value Reference Range Interpretation [...] 32.1 g/dL 31.2-35.0 RDW-SD (test code = 30574-9) 42.3 fL 38.5-51.6 RDW-CV (test code = 788-0) 12.9 % 12.1-15.4 PLT (test code = 777-3) See_Comment H [Automated messa ge] The system which generated this result transmitted reference range: 150 - 328 10*3/?L. The reference range was not used to interpret this result as normal/abnormal. MPV (test code = 25770-5) 9.9 fL 9.8-13.0 NRBC/100 WBC (test code = 9568896871) See_Comment [Automated me ssage] The system which generated this result transmitted reference range: 0.0 - 10.0 /100 WBCs. The reference range was not used to interpret this result as normal/abnormal. NRBC x10^3 (test code = 5284107499) <0.01 See_Comment [Automated messa ge] The system which generated this result transmitted reference range: 10*3/?L. The reference range was not used to interpret this result as normal/abnormal. GRAN MAT (NEUT) % (test code = 770-8) 64.2 % IMM GRAN % (test code = 1268910153) 1.00 % LYMPH % (test code = 736-9) 23.0 % MONO % (test code = 5905-5) 9.8 % EOS % (test code = 713-8) 1.5 % BASO % (test code = 706-2) 0.5 % GRAN MAT x10^3(ANC) (test code = 8290079386) 6.50 10*3/uL 1.99-6.95 IMM GRAN x10^3 (test code = 5805731697) 0.10 10*3/uL 0.00-0.06 H LYMPH x10^3 (test code = 731-0) 2.33 10*3/uL 1.09-3.23 MONO x10^3 (test code = 742-7) 0.99 10*3/uL 0.36-1.02 EOS x10^3 (test code = 711-2) 0.15 10*3/uL 0.06-0.53 BASO x10^3 (test code = 704-7) 0.05 10*3/uL 0.01-0.09 Lab Interpretation (test code = 15515-4) Abnormal [facility] GLUCOSE (AUTOMATED)2021-03-09 22:46:56* Test Item Value Reference Range Interpretation Comme nts POCT GLU (test code = 5943921461) 119 mg/dL 70-110 H Lab Interpretation (test cod e = 12850-8) Abnormal [facility] GLUCOSE (AUTOMATED)2021-03-09 17:16:26* Test Item Value Reference Range Interpretation Comme nts POCT GLU (test code = 3096455750) 126 mg/dL 70-110 H Lab Interpretation (test cod e = 46619-4) Abnormal [facility] GLUCOSE (AUTOMATED)2021-03-09 13:50:01* Test Item Value Reference Range Interpretation Comme nts POCT GLU (test code = 7207121791) 110 mg/dL 70-110 Lab Interpretation (test cod e = 28425-7) Normal [facility] GLUCOSE (AUTOMATED)2021-03-09 03:32:40* Test Item Value Reference Range Interpretation Comme nts POCT GLU (test code = 0419863950) 145 mg/dL 70-110 H Notified Provide r Lab Interpretation (test code = 06104-6) Abnormal [facility] GLUCOSE (AUTOMATED)2021-03-08 22:44:07* Test Item Value Reference Range Interpretation Comme nts POCT GLU (test code = 7782166000) 135 mg/dL 70-110 H Lab Interpretation (test cod e = 58068-6) Abnormal [facility] GLUCOSE (AUTOMATED)2021-03-08 17:39:54* Test Item Value Reference Range Interpretation Comme nts POCT GLU (test code = 2092956466) 126 mg/dL 70-110 H Lab Interpretation (test cod e = 75992-6) Abnormal [facility] GLUCOSE (AUTOMATED)2021-03-08 13:26:14* Test Item Value Reference Range Interpretation Comme nts POCT GLU (test code = 1789093032) 122 mg/dL 70-110 H Lab Interpretation (test cod e = 59522-5) Abnormal [facility] METABOLIC PANEL (NA, K, CL, CO2, GLUCOSE, BUN, CREATININE, CA)2021-03-08 12:52:59* Test Item Value Reference Range Interpretation Comme nts NA (test code = 6689973440) 133 mmol/L 135-145 L K (test code = 0008970194) 4.5 mmol/L 3.5-5.0 CL (test code = 1312547950) 101 mmol/L 98-108 CO2 TOTAL (test code = 9184723901) 24 mmol/L 23-31 AGAP (test code = 1224940033) 2-16 BUN (test code = 7501912484) 12 mg/dL 7-23 GLUCOSE (test code = 2495994992) 136 mg/dL 70-110 H CREATININE (test code = 4510829171) 0.65 mg/dL 0.60-1.25 CALCIUM (test code = 8572132258) 8.9 mg/dL 8.6-10.6 eGFR (test code = 3362261198) mL/min/1.73m2 CATALINA (test code = CATALINA) Association [...] imaging tests). Lab Interpretation (test code = 61128-3) [facility] 12:52:59* Test Item Value Reference Range Interpretation Comme nts MAGNESIUM (test code = 2469023129) 2.2 mg/dL 1.7-2.4 Lab Interpretation (test cod e = 21342-3) Normal [facility] WITH [id number] 12:21:57* Test Item Value Reference Range Interpretation Comme nts WBC (test code = 6690-2) See_Comment H [Automated [employer]] The system which generated this result transmitted reference range: 4.20 - 10.70 10*3/?L. The reference range was not used to interpret this result as normal/abnormal. RBC (test code = 789-8) See_Comment L [Automated [employer]] The system which generated this result transmitted [...] 32.4 g/dL 31.2-35.0 RDW-SD (test code = 49214-7) 41.7 fL 38.5-51.6 RDW-CV (test code = 788-0) 12.9 % 12.1-15.4 PLT (test code = 777-3) See_Comment H [Automated messa ge] The system which generated this result transmitted reference range: 150 - 328 10*3/?L. The reference range was not used to interpret this result as normal/abnormal. MPV (test code = 11779-0) 10.0 fL 9.8-13.0 NRBC/100 WBC (test code = 3513694134) See_Comment [Automated Datto ssage] The system which generated this result transmitted reference range: 0.0 - 10.0 /100 WBCs. The reference range was not used to interpret this result as normal/abnormal. NRBC x10^3 (test code = 5410174522) <0.01 See_Comment [Automated messa ge] The system which generated this result transmitted reference range: 10*3/?L. The reference range was not used to interpret this result as normal/abnormal. GRAN MAT (NEUT) % (test code = 770-8) 70.1 % IMM GRAN % (test code = 2706016688) 1.50 % LYMPH % (test code = 736-9) 18.8 % MONO % (test code = 5905-5) 7.8 % EOS % (test code = 713-8) 1.4 % BASO % (test code = 706-2) 0.4 % GRAN MAT x10^3(ANC) (test code = 1503615990) 8.11 10*3/uL 1.99-6.95 H IMM GRAN x10^3 (test code = 4000884809) 0.17 10*3/uL 0.00-0.06 H LYMPH x10^3 (test code = 731-0) 2.18 10*3/uL 1.09-3.23 MONO x10^3 (test code = 742-7) 0.90 10*3/uL 0.36-1.02 EOS x10^3 (test code = 711-2) 0.16 10*3/uL 0.06-0.53 BASO x10^3 (test code = 704-7) 0.05 10*3/uL 0.01-0.09 Lab Interpretation (test code = 37816-1) Abnormal [facility] GLUCOSE (AUTOMATED)2021-03-08 02:37:36* Test Item Value Reference Range Interpretation Comme nts POCT GLU (test code = 6832558412) 141 mg/dL 70-110 H Notified Provide r Lab Interpretation (test code = 63637-8) Abnormal [facility] GLUCOSE (AUTOMATED)2021-03-07 23:10:44* Test Item Value Reference Range Interpretation Comme nts POCT GLU (test code = 9088185646) 108 mg/dL 70-110 Lab Interpretation (test cod e = 78202-3) Normal [facility] GLUCOSE (AUTOMATED)2021-03-07 17:15:58* Test Item Value Reference Range Interpretation Comme nts POCT GLU (test code = 4451598468) 136 mg/dL 70-110 H Lab Interpretation (test cod e = 09441-5) Abnormal [facility] GLUCOSE (AUTOMATED)2021-03-07 14:40:51* Test Item Value Reference Range Interpretation Comme nts POCT GLU (test code = 4235111848) 127 mg/dL 70-110 H Lab Interpretation (test cod e = 58055-0) Abnormal [facility] GLUCOSE (AUTOMATED)2021-03-06 22:26:48* Test Item Value Reference Range Interpretation Comme nts POCT GLU (test code = 3892626845) 136 mg/dL 70-110 H Lab Interpretation (test cod e = 67663-7) Abnormal [facility] GLUCOSE (AUTOMATED)2021-03-06 18:19:30* Test Item Value Reference Range Interpretation Comme nts POCT GLU (test code = 1541740989) 115 mg/dL 70-110 H Lab Interpretation (test cod e = 11390-8) Abnormal [facility] GLUCOSE (AUTOMATED)2021-03-06 15:23:47* Test Item Value Reference Range Interpretation Comme nts POCT GLU (test code = 4571785000) 114 mg/dL 70-110 H Lab Interpretation (test cod e = 40805-0) Abnormal [facility] GLUCOSE (AUTOMATED)2021-03-06 06:27:55* Test Item Value Reference Range Interpretation Comme nts POCT GLU (test code = 0742130695) 136 mg/dL 70-110 H Lab Interpretation (test cod e = 41771-6) Abnormal [facility] GLUCOSE (AUTOMATED)2021-03-05 22:19:25* Test Item Value Reference Range Interpretation Comme nts POCT GLU (test code = 6205047665) 98 mg/dL 70-110 Lab Interpretation (test cod e = 50407-1) Normal [facility] GLUCOSE (AUTOMATED)2021-03-05 18:16:27* Test Item Value Reference Range Interpretation Comme nts POCT GLU (test code = 3185730556) 151 mg/dL 70-110 H Lab Interpretation (test cod e = 66878-5) Abnormal [facility] GLUCOSE (AUTOMATED)2021-03-05 14:28:55* Test Item Value Reference Range Interpretation Comme nts POCT GLU (test code = 4345091617) 123 mg/dL 70-110 H Lab Interpretation (test cod e = 48050-2) Abnormal [facility] WITH [id number] 12:41:13* Test Item Value Reference Range Interpretation [...] 31.7 g/dL 31.2-35.0 RDW-SD (test code = 17983-0) 44.4 fL 38.5-51.6 RDW-CV (test code = 788-0) 13.5 % 12.1-15.4 PLT (test code = 777-3) See_Comment H [Automated messa ge] The system which generated this result transmitted reference range: 150 - 328 10*3/?L. The reference range was not used to interpret this result as normal/abnormal. MPV (test code = 36381-5) 10.4 fL 9.8-13.0 NRBC/100 WBC (test code = 3697009422) See_Comment [Automated Datto ssage] The system which generated this result transmitted reference range: 0.0 - 10.0 /100 WBCs. The reference range was not used to interpret this result as normal/abnormal. NRBC x10^3 (test code = 9079153391) <0.01 See_Comment [Automated messa ge] The system which generated this result transmitted reference range: 10*3/?L. The reference range was not used to interpret this result as normal/abnormal. GRAN MAT (NEUT) % (test code = 770-8) 70.2 % IMM GRAN % (test code = 1085652072) 3.40 % LYMPH % (test code = 736-9) 16.8 % MONO % (test code = 5905-5) 7.6 % EOS % (test code = 713-8) 1.3 % BASO % (test code = 706-2) 0.7 % GRAN MAT x10^3(ANC) (test code = 7004615671) 8.95 10*3/uL 1.99-6.95 H IMM GRAN x10^3 (test code = 2554951255) 0.43 10*3/uL 0.00-0.06 H LYMPH x10^3 (test code = 731-0) 2.14 10*3/uL 1.09-3.23 MONO x10^3 (test code = 742-7) 0.97 10*3/uL 0.36-1.02 EOS x10^3 (test code = 711-2) 0.17 10*3/uL 0.06-0.53 BASO x10^3 (test code = 704-7) 0.09 10*3/uL 0.01-0.09 Lab Interpretation (test code = 23980-4) Abnormal [facility] METABOLIC PANEL (NA, K, CL, CO2, GLUCOSE, BUN, CREATININE, CA)2021-03-05 11:23:26* Test Item Value Reference Range Interpretation Comme nts NA (test code = 9579232220) 135 mmol/L 135-145 K (test code = 8858179213) 4.2 mmol/L 3.5-5.0 CL (test code = 0926722738) 101 mmol/L 98-108 CO2 TOTAL (test code = 7490418004) 27 mmol/L 23-31 AGAP (test code = 9357002702) 2-16 BUN (test code = 0292764579) 9 mg/dL 7-23 GLUCOSE (test code = 1400322161) 135 mg/dL 70-110 H CREATININE (test code = 1267968928) 0.65 mg/dL 0.60-1.25 CALCIUM (test code = 2077130778) 8.8 mg/dL 8.6-10.6 eGFR (test code = 0832162842) mL/min/1.73m2 CATALINA (test code = CATALINA) Association [...] imaging tests). Lab Interpretation (test code = 87695-1) [facility] 11:23:26* Test Item Value Reference Range Interpretation Comme nts MAGNESIUM (test code = 5011969711) 2.5 mg/dL 1.7-2.4 H Lab Interpretation (test cod e = 16088-8) [facility] [id number] 01:18:05* Test Item Value Reference Range Interpretation Comme nts LDH (test code = 2576733955) 753 U/L 300-600 H Lab Interpretation (test cod e = 50809-7) Abnormal [facility] GLUCOSE (AUTOMATED)2021-03-04 22:09:48* Test Item Value Reference Range Interpretation Comme nts POCT GLU (test code = 2854040229) 135 mg/dL 70-110 H Lab Interpretation (test cod e = 83857-3) Abnormal [facility] GLUCOSE (AUTOMATED)2021-03-04 17:24:54* Test Item Value Reference Range Interpretation Comme nts POCT GLU (test code = 4302936592) 160 mg/dL 70-110 H Lab Interpretation (test cod e = 62037-6) [facility] 17:19:53* Test Item Value Reference Range Interpretation Comme nts MAGNESIUM (test code = 0468592326) 2.4 mg/dL 1.7-2.4 Lab Interpretation (test cod e = 60573-4) Normal [facility] (NA, K, CL, CO2, GLUCOSE, BUN, CREATININE, CA)2021-03-04 17:19:52* Test Item Value Reference Range Interpretation Comme nts NA (test code = 8918565096) 136 mmol/L 135-145 K (test code = 0346296818) 4.6 mmol/L 3.5-5.0 CL (test code = 9440825565) 101 mmol/L 98-108 CO2 TOTAL (test code = 7286129542) 27 mmol/L 23-31 AGAP (test code = 5887684535) 2-16 BUN (test code = 3266382991) 8 mg/dL 7-23 GLUCOSE (test code = 0721556163) 125 mg/dL 70-110 H CREATININE (test code = 7211987881) 0.62 mg/dL 0.60-1.25 CALCIUM (test code = 5746707882) 8.8 mg/dL 8.6-10.6 eGFR (test code = 4785107270) mL/min/1.73m2 CATALINA (test code = CATALINA) Association [...] imaging tests). Lab Interpretation (test code = 74268-4) Abnormal [facility] WITH [id number] 15:00:40* Test Item Value Reference Range Interpretation [...] 31.6 g/dL 31.2-35.0 RDW-SD (test code = 02648-5) 45.4 fL 38.5-51.6 RDW-CV (test code = 788-0) 13.7 % 12.1-15.4 PLT (test code = 777-3) See_Comment H [Automated message] The system which generated this result transmitted reference range: 150 - 328 10*3/?L. The reference range was not used to interpret this result as normal/abnormal. MPV (test code = 61351-8) 10.5 fL 9.8-13.0 NRBC/100 WBC (test code = 6558156990) See_Comment [Automated message] The system which generated this result transmitted reference range: 0.0 - 10.0 /100 WBCs. The reference range was not used to interpret this result as normal/abnormal. NRBC x10^3 (test code = 7278175717) <0.01 See_Comment [Automated message] The system which generated this result transmitted reference range: 10*3/?L. The reference range was not used to interpret this result as normal/abnormal. GRAN MAT (NEUT) % (test code = 770-8) 69.9 % IMM GRAN % (test code = 0562309532) 5.20 % LYMPH % (test code = 736-9) 15.4 % MONO % (test code = 5905-5) 8.0 % EOS % (test code = 713-8) 1.0 % BASO % (test code = 706-2) 0.5 % GRAN MAT x10^3(ANC) (test code = 6136528070) 10.31 10*3/uL 1.99-6.95 H IMM GRAN x10^3 (test code = 7482988485) 0.77 10*3/uL 0.00-0.06 H LYMPH x10^3 (test [...] result as normal/abnormal. BANDS (test code = 1576626907) Increased A REACT LYMPHS (test code = [id number]) Rare TOXIC CHANGES (test code = 803-7) Present A GIANT PLATELETS (test code = 5908-9) Present See_Comment A [Automated message] The system which generated this result transmitted reference range: (none). The reference range was not used to interpret this result as normal/abnormal. Lab Interpretation (test code = 66012-6) Abnormal [facility] GLUCOSE (AUTOMATED)2021-03-04 13:51:33* Test Item Value Reference Range Interpretation Comme nts POCT GLU (test code = 5500863289) 141 mg/dL 70-110 H Lab Interpretation (test cod e = 58082-9) Abnormal [facility] GLUCOSE (AUTOMATED)2021-03-03 18:21:58* Test Item Value Reference Range Interpretation Comme nts POCT GLU (test code = 2156785465) 190 mg/dL 70-110 H Lab Interpretation (test cod e = 68520-1) Abnormal [facility] WITH [id number] 14:30:04* Test Item Value Reference Range Interpretation [...] 33.1 g/dL 31.2-35.0 RDW-SD (test code = 29530-2) 44.2 fL 38.5-51.6 RDW-CV (test code = 788-0) 13.5 % 12.1-15.4 PLT (test code = 777-3) See_Comment H [Automated messa ge] The system which generated this result transmitted reference range: 150 - 328 10*3/?L. The reference range was not used to interpret this result as normal/abnormal. MPV (test code = 09698-1) 10.2 fL 9.8-13.0 NRBC/100 WBC (test code = 4472328449) See_Comment [Automated me ssage] The system which generated this result transmitted reference range: 0.0 - 10.0 /100 WBCs. The reference range was not used to interpret this result as normal/abnormal. NRBC x10^3 (test code = 1643277503) <0.01 See_Comment [Automated messa ge] The system which generated this result transmitted reference range: 10*3/?L. The reference range was not used to interpret this result as normal/abnormal. GRAN MAT (NEUT) % (test code = 770-8) 70.9 % IMM GRAN % (test code = 7885391799) 4.70 % LYMPH % (test code = 736-9) 13.5 % MONO % (test code = 5905-5) 9.2 % EOS % (test code = 713-8) 1.1 % BASO % (test code = 706-2) 0.6 % GRAN MAT x10^3(ANC) (test code = 3371402214) 9.90 10*3/uL 1.99-6.95 H IMM GRAN x10^3 (test code = 2030306113) 0.65 10*3/uL 0.00-0.06 H LYMPH x10^3 (test code = 731-0) 1.88 10*3/uL 1.09-3.23 MONO x10^3 (test code = 742-7) 1.28 10*3/uL 0.36-1.02 H EOS x10^3 (test code = 711-2) 0.15 10*3/uL 0.06-0.53 BASO x10^3 (test code = 704-7) 0.08 10*3/uL 0.01-0.09 BANDS (test code = 3380121684) Increased A TOXIC CHANGES (test code = 803-7) Present A Lab Interpretation (test code = 88950-6) Abnormal [facility] GLUCOSE (AUTOMATED)2021-03-03 13:45:39* Test Item Value Reference Range Interpretation Comme nts POCT GLU (test code = 4038070338) 144 mg/dL 70-110 H Lab Interpretation (test cod e = 27626-6) [facility] 13:32:13* Test Item Value Reference Range Interpretation Comme nts MAGNESIUM (test code = 1868491197) 2.3 mg/dL 1.7-2.4 Lab Interpretation (test cod e = 26809-2) [facility] (NA, K, CL, CO2, GLUCOSE, BUN, CREATININE, CA)2021-03-03 13:32:02* Test Item Value Reference Range Interpretation Comme nts NA (test code = 1326590738) 136 mmol/L 135-145 K (test code = 9158252257) 4.6 mmol/L 3.5-5.0 CL (test code = 1414466257) 104 mmol/L 98-108 CO2 TOTAL (test code = 1893254625) 24 mmol/L 23-31 AGAP (test code = 3292774682) 2-16 BUN (test code = 9489650970) 6 mg/dL 7-23 L GLUCOSE (test code = 8111602974) 134 mg/dL 70-110 H CREATININE (test code = 2020029187) 0.56 mg/dL 0.60-1.25 L CALCIUM (test code = 5624017107) 8.5 mg/dL 8.6-10.6 L eGFR (test code = 5272273270) mL/min/1.73m2 CATALINA (test code = CATALINA) Association [...] imaging tests). Lab Interpretation (test code = 48586-9) [facility] 13:31:50* Test Item Value Reference Range Interpretation Comme nts PHOSPHORUS (test code = 5007698733) 3.9 mg/dL 2.5-5.0 Lab Interpretation (test cod e = 65651-9) Normal [facility] [id number] 06:01:53* Test Item Value Reference Range Interpretation Comme nts Blood Culture-Aerobic (test code = 88989-1) No organisms isolated No growth Previous preliminary verified result was Culture In Progress on 02/26/2021 at 0401 CDTPrevious preliminary verified result was No growth at 24 hours on 02/27/2021 at 0101 CDTPrevious preliminary verified result was No growth at 48 hours on 02/28/2021 at 010 CDTPrevious preliminary verified result was No growth at 72 hours on 03/01/2021 at 0101 CDT Blood Culture-Anaerobic (test code = 83727-0) No organisms isolated No growth Previous preliminary [...] 0101 CDT Lab Interpretation (test code = 74409-5) Normal [facility] [id number] 06:01:53* Test Item Value Reference Range Interpretation Comme nts Blood Culture-Aerobic (test code = 64581-0) No organisms isolated No growth Previous preliminary [...] 0101 CDT Blood Culture-Anaerobic (test code = 65217-4) No organisms isolated No growth Previous preliminary [...] 0101 CDT Lab Interpretation (test code = 37258-7) Normal [facility] GLUCOSE (AUTOMATED)2021-03-03 02:26:32* Test Item Value Reference Range Interpretation Comme nts POCT GLU (test code = 1903212581) 155 mg/dL 70-110 H Notified Provide r Lab Interpretation (test code = 25110-3) Abnormal [facility] GLUCOSE (AUTOMATED)2021-03-02 22:38:32* Test Item Value Reference Range Interpretation Comme nts POCT GLU (test code = 4186324992) 122 mg/dL 70-110 H Lab Interpretation (test cod e = 71971-1) Abnormal [facility] GLUCOSE (AUTOMATED)2021-03-02 17:46:25* Test Item Value Reference Range Interpretation Comme nts POCT GLU (test code = 0720351708) 125 mg/dL 70-110 H Lab Interpretation (test cod e = 25959-3) [facility] [id number] 16:40:15* Test Item Value Reference Range Interpretation Comme nts SPUTUM CULTURE (test code = 622-1) 2+ Respiratory jeff: Commensal upper respiratory microorganisms only. Gram stain (test code = 664-3) Occasional (Rare) Mononuclear cells CATALINA (test code = CATALINA) Bacterial pathogens associated with lower respiratory infections were not identified, which include Pseudomonas aeruginosa and Staphylococcus aureus (MRSA or MSSA). [facility] WITH [id number] 15:16:38* Test Item Value Reference Range Interpretation [...] 32.9 g/dL 31.2-35.0 RDW-SD (test code = 45186-6) 44.9 fL 38.5-51.6 RDW-CV (test code = 788-0) 13.5 % 12.1-15.4 PLT (test code = 777-3) See_Comment [Automated messa ge] The system which generated this result transmitted reference range: 150 - 328 10*3/?L. The reference range was not used to interpret this result as normal/abnormal. MPV (test code = 17614-8) 10.9 fL 9.8-13.0 NRBC/100 WBC (test code = 5397439554) See_Comment [Automated me ssage] The system which generated this result transmitted reference range: 0.0 - 10.0 /100 WBCs. The reference range was not used to interpret this result as normal/abnormal. NRBC x10^3 (test code = 6544306228) <0.01 See_Comment [Automated messa ge] The system which generated this result transmitted reference range: 10*3/?L. The reference range was not used to interpret this result as normal/abnormal. GRAN MAT (NEUT) % (test code = 770-8) 73.0 % IMM GRAN % (test code = 0664807527) 2.80 % LYMPH % (test code = 736-9) 12.6 % MONO % (test code = 5905-5) 9.4 % EOS % (test code = 713-8) 1.7 % BASO % (test code = 706-2) 0.5 % GRAN MAT x10^3(ANC) (test code = 4388001839) 9.28 10*3/uL 1.99-6.95 H IMM GRAN x10^3 (test code = 7357986776) 0.36 10*3/uL 0.00-0.06 H LYMPH x10^3 (test code = 731-0) 1.60 10*3/uL 1.09-3.23 MONO x10^3 (test code = 742-7) 1.20 10*3/uL 0.36-1.02 H EOS x10^3 (test code = 711-2) 0.22 10*3/uL 0.06-0.53 BASO x10^3 (test code = 704-7) 0.07 10*3/uL 0.01-0.09 ROULEAUX (test code = 7797-4) Present See_Comment A [Automated messa ge] The system which generated this result transmitted reference range: (none). The reference range was not used to interpret this result as normal/abnormal. BANDS (test code = 5756220996) Increased A DOHLE BODIES (test code = 7792-5) Present A REACT LYMPHS (test code = 2864281948) Rare TOXIC CHANGES (test code = 803-7) Present A Lab Interpretation (test code = 49339-7) Abnormal [facility] GLUCOSE (AUTOMATED)2021-03-02 13:57:34* Test Item Value Reference Range Interpretation Comme nts POCT GLU (test code = 4432039692) 136 mg/dL 70-110 H Lab Interpretation (test cod e = 04577-6) Abnormal [facility] GLUCOSE (AUTOMATED)2021-03-02 13:38:29* Test Item Value Reference Range Interpretation Comme nts POCT GLU (test code = 2726324982) 138 mg/dL 70-110 H Lab Interpretation (test cod e = 37412-7) [facility]OL[facility] PAN[facility] (10110)2021-03-02 12:01:14* Test Item Value Reference Range Interpretation Comme nts NA (test code = 4987630898) 139 mmol/L 135-145 K (test code = 6213583717) 3.2 mmol/L 3.5-5.0 L CL (test code = 3067937892) 113 mmol/L 98-108 H CO2 TOTAL (test code = 7193134494) 21 mmol/L 23-31 L AGAP (test code = 9357243078) 2-16 BUN (test code = 1266650983) 4 mg/dL 7-23 L GLUCOSE (test code = 1278902605) 102 mg/dL 70-110 CREATININE (test code = 1913002109) 0.43 mg/dL 0.60-1.25 L TOTAL BILI (test code = 4483428053) 0.6 mg/dL 0.1-1.1 CALCIUM (test code = 0346702656) 6.2 mg/dL 8.6-10.6 L T PROTEIN (test code = 6217418206) 4.4 g/dL 6.3-8.2 L ALBUMIN (test code = 5197773450) 2.0 g/dL 3.5-5.0 L ALK PHOS (test code = 6853127288) 131 U/L 34-122 H ALTv (test code = 1742-6) 23 U/L 5-50 AST(SGOT) (test code = 2196964114) 29 U/L 13-40 eGFR (test code = 2832306876) mL/min/1.73m2 CATALINA (test code = CATALINA) Association [...] imaging tests). Lab Interpretation (test code = 26594-1) Abnormal [facility] GLUCOSE (AUTOMATED)2021-03-02 04:00:42* Test Item Value Reference Range Interpretation Comme [facility] POCT GLU (test code = 9907972990) 186 mg/dL 70-110 H Lab Interpretation (test cod e = 33252-3) Abnormal [facility] GLUCOSE (AUTOMATED)2021-03-01 23:00:33* Test Item Value Reference Range Interpretation Comme [facility] POCT GLU (test code = 0035059199) 130 mg/dL 70-110 H Lab Interpretation (test cod e = 68692-1) Abnormal [facility] GLUCOSE (AUTOMATED)2021-03-01 18:02:15* Test Item Value Reference Range Interpretation Comme [facility] POCT GLU (test code = 4157381484) 166 mg/dL 70-110 H Lab Interpretation (test cod e = 99090-1) [facility]2021-[facility]-07 11:26:40* Test Item Value Reference Range Interpretation Comme nts MAGNESIUM (test code = 1312260903) 2.4 mg/dL 1.7-2.4 Lab Interpretation (test cod e = 68293-2) Normal [facility] METABOLIC PANEL (NA, K, CL, CO2, GLUCOSE, BUN, CREATININE, CA)2021-03-01 11:26:19* Test Item Value Reference Range Interpretation Comme nts NA (test code = 8584967648) 134 mmol/L 135-145 L K (test code = 2706968622) 4.0 mmol/L 3.5-5.0 CL (test code = 4810966550) 99 mmol/L 98-108 CO2 TOTAL (test code = 5135588985) 26 mmol/L 23-31 AGAP (test code = 7538026306) 2-16 BUN (test code = 3841229053) 7 mg/dL 7-23 GLUCOSE (test code = 4655423621) 161 mg/dL 70-110 H CREATININE (test code = 8287796295) 0.69 mg/dL 0.60-1.25 CALCIUM (test code = 7650797929) 8.4 mg/dL 8.6-10.6 L eGFR (test code = 7779235242) mL/min/1.73m2 CATALINA (test code = CATALINA) Association [...] imaging tests). Lab Interpretation (test code = 00268-0) [facility]2021[facility] 11:26:19* Test Item Value Reference Range Interpretation Comme nts PHOSPHORUS (test code = 6860120147) 3.2 mg/dL 2.5-5.0 Lab Interpretation (test cod e = 57900-7) [facility] WITH [id number] 11:16:45* Test Item Value Reference Range Interpretation [...] 32.9 g/dL 31.2-35.0 RDW-SD (test code = 55560-5) 42.1 fL 38.5-51.6 RDW-CV (test code = 788-0) 13.2 % 12.1-15.4 PLT (test code = 777-3) See_Comment H [Automated message] The system which generated this result transmitted reference range: 150 - 328 10*3/?L. The reference range was not used to interpret this result as normal/abnormal. MPV (test code = 69720-9) 10.3 fL 9.8-13.0 NRBC/100 WBC (test code = 0405817711) See_Comment [Automated message] The system which generated this result transmitted reference range: 0.0 - 10.0 /100 WBCs. The reference range was not used to interpret this result as normal/abnormal. NRBC x10^3 (test code = 3784647102) <0.01 See_Comment [Automated message] The system which generated this result transmitted reference range: 10*3/?L. The reference range was not used to interpret this result as normal/abnormal. GRAN MAT (NEUT) % (test code = 770-8) 78.5 % IMM GRAN % (test code = 8407397764) 1.60 % LYMPH % (test code = 736-9) 8.7 % MONO % (test code = 5905-5) 9.8 % EOS % (test code = 713-8) 1.0 % BASO % (test code = 706-2) 0.4 % GRAN MAT x10^3(ANC) (test code = 6530545459) 12.22 10*3/uL 1.99-6.95 H IMM GRAN x10^3 (test code = 3893780576) 0.25 10*3/uL 0.00-0.06 H LYMPH x10^3 (test code = 731-0) 1.36 10*3/uL 1.09-3.23 MONO x10^3 (test code = 742-7) 1.53 10*3/uL 0.36-1.02 H EOS x10^3 (test code = 711-2) 0.15 10*3/uL 0.06-0.53 BASO x10^3 (test code = 704-7) 0.07 10*3/uL 0.01-0.09 BANDS (test code = 8775310549) Increased A TOXIC CHANGES (test code = 803-7) Present A GIANT PLATELETS (test code = 5908-9) Present See_Comment A [Automated message] The system which generated this result transmitted reference range: (none). The reference range was not used to interpret this result as normal/abnormal. Lab Interpretation (test code = 63959-4) Abnormal [facility] GLUCOSE (AUTOMATED)2021-03-01 01:33:17* Test Item Value Reference Range Interpretation Comme nts POCT GLU (test code = 1642210066) 173 mg/dL 70-110 H Lab Interpretation (test cod e = 72141-1) Abnormal [facility] GLUCOSE (AUTOMATED)2021-02-28 22:14:15* Test Item Value Reference Range Interpretation Comme nts POCT GLU (test code = 1990418295) 136 mg/dL 70-110 H Lab Interpretation (test cod e = 55953-5) Abnormal [facility] GLUCOSE (AUTOMATED)2021-02-28 22:10:43* Test Item Value Reference Range Interpretation Comme nts POCT GLU (test code = 8905223953) 158 mg/dL 70-110 H Lab Interpretation (test cod e = 52900-0) Abnormal [facility] GLUCOSE (AUTOMATED)2021-02-28 16:49:37* Test Item Value Reference Range Interpretation Comme nts POCT GLU (test code = 4379067538) 161 mg/dL 70-110 H Lab Interpretation (test cod e = 00997-5) Abnormal [facility] WITH [id number] 13:12:42* Test Item Value Reference Range Interpretation [...] 32.4 g/dL 31.2-35.0 RDW-SD (test code = 67582-8) 42.9 fL 38.5-51.6 RDW-CV (test code = 788-0) 13.0 % 12.1-15.4 PLT (test code = 777-3) See_Comment [Automated message] The system which generated this result transmitted reference range: 150 - 328 10*3/?L. The reference range was not used to interpret this result as normal/abnormal. MPV (test code = 00029-8) 10.1 fL 9.8-13.0 NRBC/100 WBC (test code = 5583782263) See_Comment [Automated message] The system which generated this result transmitted reference range: 0.0 - 10.0 /100 WBCs. The reference range was not used to interpret this result as normal/abnormal. NRBC x10^3 (test code = 9194843506) <0.01 See_Comment [Automated message] The system which generated this result transmitted reference range: 10*3/?L. The reference range was not used to interpret this result as normal/abnormal. GRAN MAT (NEUT) % (test code = 770-8) 77.6 % IMM GRAN % (test code = 2170352117) 1.40 % LYMPH % (test code = 736-9) 9.7 % MONO % (test code = 5905-5) 10.1 % EOS % (test code = 713-8) 0.7 % BASO % (test code = 706-2) 0.5 % GRAN MAT x10^3(ANC) (test code = 7338322030) 11.63 10*3/uL 1.99-6.95 H IMM GRAN x10^3 (test code = 8703247480) 0.21 10*3/uL 0.00-0.06 H LYMPH x10^3 (test [...] result as normal/abnormal. BANDS (test code = 8163635581) Increased A TOXIC CHANGES (test code = 803-7) Present A GIANT PLATELETS (test code = 5908-9) Present See_Comment A [Automated message] The system which generated this result transmitted reference range: (none). The reference range was not used to interpret this result as normal/abnormal. Lab Interpretation (test code = 72901-3) Abnormal [facility]. METABOLIC PANEL (82115)2021-02-28 12:13:05* Test Item Value Reference Range Interpretation Comme nts NA (test code = 7428858240) 133 mmol/L 135-145 L K (test code = 5682257770) 4.2 mmol/L 3.5-5.0 CL (test code = 6182182369) 100 mmol/L 98-108 CO2 TOTAL (test code = 3486368231) 26 mmol/L 23-31 AGAP (test code = 9634412116) 2-16 BUN (test code = 8130781154) 8 mg/dL 7-23 GLUCOSE (test code = 9008274412) 143 mg/dL 70-110 H CREATININE (test code = 1803571713) 0.70 mg/dL 0.60-1.25 TOTAL BILI (test code = 1646361071) 1.4 mg/dL 0.1-1.1 H CALCIUM (test code = 5409844179) 8.5 mg/dL 8.6-10.6 L T PROTEIN (test code = 9886112907) 5.7 g/dL 6.3-8.2 L ALBUMIN (test code = 7947893751) 3.0 g/dL 3.5-5.0 L ALK PHOS (test code = 2387875427) 111 U/L 34-122 ALTv (test code = 1742-6) 16 U/L 5-50 AST(SGOT) (test code = 5518957512) 20 U/L 13-40 eGFR (test code = 4708352135) mL/min/1.73m2 CATALINA (test code = CATALINA) Association [...] imaging tests). Lab Interpretation (test code = 72425-9) Abnormal [facility] GLUCOSE (AUTOMATED)2021-02-28 02:31:48* Test Item Value Reference Range Interpretation Comme nts POCT GLU (test code = 1169934012) 206 mg/dL 70-110 H Lab Interpretation (test cod e = 51440-8) [facility] 2021-02-28 00:49:25* Test Item Value Reference Range Interpretation Comme nts Mycobacterium tuberculosis D NA (test code = 63912-5) Negative Negative Lab Interpretation (test cod e = 98651-8) Normal [facility] GLUCOSE (AUTOMATED)2021-02-27 22:30:13* Test Item Value Reference Range Interpretation Comme nts POCT GLU (test code = 9397409694) 160 mg/dL 70-110 H Lab Interpretation (test cod e = 50504-9) [facility] 2021-02-27 18:36:53* Test Item Value Reference Range Interpretation Comme nts Mycobacterium tuberculosis DNA (test code = 08889-7) Negative Negative CATALINA (test code = CATALINA) MTB PCR testing delayed due to inadequate specimen. Lab Interpretation (test code = 18914-1) Normal [facility] GLUCOSE (AUTOMATED)2021-02-27 16:47:54* Test Item Value Reference Range Interpretation Comme nts POCT GLU (test code = 2128307799) 185 mg/dL 70-110 H Lab Interpretation (test cod e = 19591-7) Abnormal [facility] GLUCOSE (AUTOMATED)2021-02-27 13:10:59* Test Item Value Reference Range Interpretation Comme nts POCT GLU (test code = 5336227101) 140 mg/dL 70-110 H Lab Interpretation (test cod e = 19569-0) Abnormal [facility] GLUCOSE (AUTOMATED)2021-02-27 11:09:43* Test Item Value Reference Range Interpretation Comme nts POCT GLU (test code = 3583882425) 120 mg/dL 70-110 H Lab Interpretation (test cod e = 45661-3) [facility]normal [facility] - Draw within 30 minutes prior to 3RD dose.2021-02-27 08:29:58* Test Item Value Reference Range Interpretation Comme nts VANCO TROUGH (test code = 6437493253) <5.0 10.0-20.0 L CATALINA (test code = CATALINA) Toxic Range: ?>20 ug/mL 15-20 ug/mL is recommended for severe infection or when Vancomycin TYLER is greater than or equal to 2. Lab Interpretation (test code = 04142-1) Abnormal [facility]. METABOLIC PANEL (24897)2021-02-27 08:17:18* Test Item Value Reference Range Interpretation Comme nts NA (test code = 2463974614) 132 mmol/L 135-145 L K (test code = 2293173052) 4.2 mmol/L 3.5-5.0 CL (test code = 5374916496) 99 mmol/L 98-108 CO2 TOTAL (test code = 1863866367) 24 mmol/L 23-31 AGAP (test code = 8547867043) 2-16 BUN (test code = 9359767699) 10 mg/dL 7-23 GLUCOSE (test code = 1754789781) 137 mg/dL 70-110 H CREATININE (test code = 3266071652) 0.81 mg/dL 0.60-1.25 TOTAL BILI (test code = 2276393650) 1.5 mg/dL 0.1-1.1 H CALCIUM (test code = 6871135675) 8.6 mg/dL 8.6-10.6 T PROTEIN (test code = 7908082785) 6.1 g/dL 6.3-8.2 L ALBUMIN (test code = 5177457180) 3.3 g/dL 3.5-5.0 L ALK PHOS (test code = 1559442175) 94 U/L 34-122 ALTv (test code = 1742-6) 19 U/L 5-50 AST(SGOT) (test code = 4738938508) 16 U/L 13-40 eGFR (test code = 2170663127) mL/min/1.73m2 CATALINA (test code = CATALINA) Association [...] imaging tests). Lab Interpretation (test code = 93276-7) [facility] 08:17:18* Test Item Value Reference Range Interpretation Comme nts MAGNESIUM (test code = 2771236590) 2.1 mg/dL 1.7-2.4 Lab Interpretation (test cod e = 49241-3) [facility]21[facility] 08:16:57* Test Item Value Reference Range Interpretation Comme nts PHOSPHORUS (test code = 6501426552) 2.6 mg/dL 2.5-5.0 Lab Interpretation (test cod e = 72594-6) [facility]CBC WITH [id number] 07:51:35* Test Item Value Reference Range Interpretation [...] 32.3 g/dL 31.2-35.0 RDW-SD (test code = 05442-3) 42.4 fL 38.5-51.6 RDW-CV (test code = 788-0) 12.8 % 12.1-15.4 PLT (test code = 777-3) See_Comment [Automated message] The system which generated this result transmitted reference range: 150 - 328 10*3/?L. The reference range was not used to interpret this result as normal/abnormal. MPV (test code = 73420-5) 10.2 fL 9.8-13.0 NRBC/100 WBC (test code = 6553552583) See_Comment [Automated message] The system which generated this result transmitted reference range: 0.0 - 10.0 /100 WBCs. The reference range was not used to interpret this result as normal/abnormal. NRBC x10^3 (test code = 7567962454) <0.01 See_Comment [Automated message] The system which generated this result transmitted reference range: 10*3/?L. The reference range was not used to interpret this result as normal/abnormal. GRAN MAT (NEUT) % (test code = 770-8) 78.1 % IMM GRAN % (test code = 8946496690) 1.70 % LYMPH % (test code = 736-9) 10.0 % MONO % (test code = 5905-5) 9.5 % EOS % (test code = 713-8) 0.4 % BASO % (test code = 706-2) 0.3 % GRAN MAT x10^3(ANC) (test code = 8623688861) 11.88 10*3/uL 1.99-6.95 H IMM GRAN x10^3 (test code = 4343861180) 0.26 10*3/uL 0.00-0.06 H LYMPH x10^3 (test code = 731-0) 1.52 10*3/uL 1.09-3.23 MONO x10^3 (test code = 742-7) 1.45 10*3/uL 0.36-1.02 H EOS x10^3 (test code = 711-2) 0.06 10*3/uL 0.06-0.53 BASO x10^3 (test code = 704-7) 0.04 10*3/uL 0.01-0.09 Lab Interpretation (test code = 73861-8) Abnormal [facility] GLUCOSE (AUTOMATED)2021-02-27 05:06:59* Test Item Value Reference Range Interpretation Comme nts POCT GLU (test code = 9750869506) 131 mg/dL 70-110 H Notified Provide r Lab Interpretation (test code = 32656-1) [facility]2021-02-27 00:23:21* Test Item Value Reference Range Interpretation Comme [facility] POCT GLU (test code = 1787411985) 146 mg/dL 70-110 H Notified Provide r Lab Interpretation (test code = 98222-9) [facility]normal [facility] CenterVITAMIN B12, [id number] 21:40:03* Test Item Value Reference Range Interpretation Comme [facility] VIT B12 (test code = 2344953366) 226 pg/mL 240-930 L CATALINA (test code = CATALINA) Biotin has been reported to cause a positive bias, interpret results relative to patient's use of biotin. Lab Interpretation (test code = 71476-1) [facility] AG-AB WITH [id number] 20:46:32* Test Item Value Reference Range Interpretation Comme [facility] HIV Semi-quantitative (test code = 87170-6) Negative Negative CATALINA (test code = CATALINA) Non-reactive for HIV-1 antigen and HIV-1/HIV-2 antibodies. ?No laboratory evidence of HIV infection. ?Repeat in 2-4 weeks if acute HIV infection is suspected. [facility] CenterBODY FLUID MANUAL [id number] 19:54:40* Test Item Value Reference Range Interpretation Comme [facility] BF SEGS% (test code = 68401-1) 85 % BF LYMPHS% (test code = 71216-1) 3 % BF MACROPHAGE% (test code = 01662-2) 10 % BF MESOS% (test code = 81750-8) 1 % BF EOS% (test code = 42795-1) 1 % BF #CELLS CNTD (test code = 2631551053) cells/u L [facility] CenterDIFF CONSULT [id number] 19:18:36 LEUKOCYTOSIS WITH ABSOLUTE NEUTROPHILIA, MONOCYTOSIS, AND EOSINOPENIA. NO INCREASE IN BLASTS IDENTIFIED. ERYTHROCYTES ARE UNREMARKABLE. MILD THROMBOCYTOSIS.[facility] CenterLACTATE [id number] 18:57:19* Test Item Value Reference Range Interpretation Comme [facility] LDH (test code = 7118631512) 469 U/L 300-600 Lab Interpretation (test cod e = 83692-2) Normal [facility] CenterBODY FLUID DIRECT [id number] 18:17:32* Test Item Value Reference Range Interpretation Comme nts BF COLOR (test code = 8928889386) Slightly Bloody BF WBC Count (test code = 4005313688) See_Comment [Automated [email or web address]] The system which generated this result transmitted reference range: /?L. The reference range was not used to interpret this result as normal/abnormal. BF RBC Count (test code = 9099341124) See_Comment [Automated [employer]] The system which generated this result transmitted reference range: /?L. The reference range was not used to interpret this result as normal/abnormal. CATALINA (test code = CATALINA) The reference range and other method performance specifications have not been established for this body fluid. ?The test results must be integrated into the clinical context for interpretation. [facility] CenterC-REACTIVE [id number] 18:04:06* Test Item Value Reference Range Interpretation Comme nts CRP (test code = 0645465217) 39.3 mg/dL <0.8 H Lab Interpretation (test cod e = 04087-3) Abnormal [facility] CenterPROCALCITONIN2021-11-04 17:18:51* Test Item Value Reference Range Interpretation Comme nts Procalcitonin (test code = 9990057871) 4.49 ng/mL <0.07 H CATALINA (test code [...] lung abscess/empyema. For further information please refer to:[email or web address] Lab Interpretation (test code = 00200-6) Abnormal [facility] CenterPOCT GLUCOSE (AUTOMATED)2021-02-26 16:56:13* Test Item Value Reference Range Interpretation Comme nts POCT GLU (test code = 1513536046) 156 mg/dL 70-110 H Lab Interpretation (test cod e = 28831-3) Abnormal [facility] CenterVITAMIN D, [id number] 16:35:49* Test Item Value Reference Range Interpretation Comme nts VIT D 25OH (test code = 22174-2) <13 25-80 L CATALINA (test code = CATALINA) Deficiency: <20 ng/mLInsufficiency: 20-24 ng/mLOptimal: 25-80 ng/mL Lab Interpretation (test code = 29720-1) Abnormal [facility] CenterFERRITIN [id number] 16:15:43* Test Item Value Reference Range Interpretation Comme nts FERRITIN (test code = 2760020896) 257.0 ng/mL 18.0-464.0 CATALINA (test code = CATALINA) Biotin has been reported to cause a negative bias, interpret results relative to patient's use of biotin. Lab Interpretation (test code = 13442-6) Normal [facility] CenterTHYROID STIMULATING [id number] 16:11:43 * Test Item Value Reference Range Interpretation Comme nts TSH (test code = 4928842247) See_Comment H [Automated [employer]] The system which generated this result transmitted reference range: 0.45 - 4.70 mIU/L. The reference range was not used to interpret this result as normal/abnormal. Lab Interpretation (test code = 80195-6) Abnormal [facility] CenterIRON [id number] 15:46:18* Test Item Value Reference Range Interpretation Comme nts IRON (test code = 0127004856) 31 ug/dL 50-160 L TIBC (test code = 0664353216) 239 ug/dL 250-410 L % FE SAT (test code = 3035314359) 13 % 20-50 L Lab Interpretation (test cod e = 44023-5) Abnormal [facility] CenterLIPID PANEL (09947)(TOTAL CHOLESTEROL, TRIGLYCERIDES, HDL)2021-02-26 15:37:39* Test Item Value Reference Range Interpretation Comme nts CHOL (test code = 1079989637) 124 mg/dL 120-200 HDL (test code = 4731944088) 25 mg/dL >40 L HDLC RATIO (test code = 2942797518) See_Comment [Automated [employer]] The system which generated this result transmitted reference range: <=5.0. The reference range was not used to interpret this result as normal/abnormal. TRIG (test code = 0912974580) 144 mg/dL 30-170 LDL CHOL (test code = 67890-6) 70 mg/dL See_Comment [Automated [employer]ison[employer]] The system which generated this result transmitted reference range: <=160. The reference range was not used to interpret this result as normal/abnormal. VLDL (test code = 4226823586) 29 mg/dL 5-60 Lab Interpretation (test code = 75564-3) Abnormal [facility] CenterURIC [id number] 15:37:19* Test Item Value Reference Range Interpretation Comme nts URIC ACID (test code = 4990548082) 5.1 mg/dL 3.6-8.0 Lab Interpretation (test cod e = 59101-8) Normal [facility] CenterAMYLASE2021-11-04 15:36:58* Test Item Value Reference Range Interpretation Comme nts MARIA ELENA (test code = 5872395742) 38 U/L 35-110 Lab Interpretation (test cod e = 98472-3) Normal [facility] CenterPOCT GLUCOSE (AUTOMATED)2021-02-26 14:26:57* Test Item Value Reference Range Interpretation Comme nts POCT GLU (test code = 1072038917) 163 mg/dL 70-110 H Lab Interpretation (test cod e = 07321-8) Abnormal [facility] CenterProtein Total Oyijw2944-32-51 13:47:57* Test Item Value Reference Range Interpretation Comme nts T PROTEIN (test code = 9977975559) 6.1 g/dL 6.3-8.2 L Lab Interpretation (test cod e = 13701-2) Abnormal [facility] CenterMagnesium Khaac1547-95-76 11:57:09* Test Item Value Reference Range Interpretation Comme nts MAGNESIUM (test code = 9989251618) 1.9 mg/dL 1.7-2.4 Lab Interpretation (test cod e = 65196-0) Normal [facility]. METABOLIC PANEL (94082)2021-02-26 11:56:54* Test Item Value Reference Range Interpretation Comme nts NA (test code = 5730403481) 132 mmol/L 135-145 L K (test code = 7783214075) 4.1 mmol/L 3.5-5.0 CL (test code = 9088912623) 99 mmol/L 98-108 CO2 TOTAL (test code = 7710799413) 24 mmol/L 23-31 AGAP (test code = 1180407457) 2-16 BUN (test code = 6093232908) 10 mg/dL 7-23 GLUCOSE (test code = 4420118721) 182 mg/dL 70-110 H CREATININE (test code = 8568697225) 0.81 mg/dL 0.60-1.25 TOTAL BILI (test code = 6788223495) 1.2 mg/dL 0.1-1.1 H CALCIUM (test code = 4118824330) 8.5 mg/dL 8.6-10.6 L T PROTEIN (test code = 7175119237) 6.1 g/dL 6.3-8.2 L ALBUMIN (test code = 9110372905) 3.4 g/dL 3.5-5.0 L ALK PHOS (test code = 0909409065) 86 U/L 34-122 ALTv (test code = 1742-6) 25 U/L 5-50 AST(SGOT) (test code = 3247623540) 15 U/L 13-40 eGFR (test code = 3903155581) mL/min/1.73m2 CATALINA (test code = CATALINA) Association [...] imaging tests). Lab Interpretation (test code = 23533-0) Abnormal [facility] CenterTROPONIN [id number] 11:51:29* Test Item Value Reference Range Interpretation Comments TROPONIN I (test code = 8137155408) 0.001 ng/mL See_Comment [Automated message] The system [...] of biotin. Lab Interpretation (test code = 94433-8) Normal [facility] CenterN-TERMINAL [id number]-[id number] 11:48:52* Test Item Value Reference Range Interpretation Comme nts NT-proBNP (test code = 0527437551) 61 pg/mL See_Comment [Automated message] The system which generated this result transmitted reference range: <=125. The reference range was not used to interpret this result as normal/abnormal. CATALINA (test code = CATALINA) Biotin has been reported to cause a negative bias, interpret results relative to patient's use of biotin. Lab Interpretation (test code = 01341-5) Normal [facility] CenterCBC with Muhlgamakeol2133-44-52 11:08:26* Test Item Value Reference Range Interpretation [...] 33.2 g/dL 31.2-35.0 RDW-SD (test code = 25719-8) 40.2 fL 38.5-51.6 RDW-CV (test code = 788-0) 12.7 % 12.1-15.4 PLT (test code = 777-3) See_Comment H [Automated message] The system which generated this result transmitted reference range: 150 - 328 10*3/?L. The reference range was not used to interpret this result as normal/abnormal. MPV (test code = 71886-6) 10.2 fL 9.8-13.0 NRBC/100 WBC (test code = 3827659957) See_Comment [Automated message] The system which generated this result transmitted reference range: 0.0 - 10.0 /100 WBCs. The reference range was not used to interpret this result as normal/abnormal. NRBC x10^3 (test code = 5068679436) <0.01 See_Comment [Automated message] The system which generated this result transmitted reference range: 10*3/?L. The reference range was not used to interpret this result as normal/abnormal. GRAN MAT (NEUT) % (test code = 770-8) 79.1 % IMM GRAN % (test code = 6029380999) 0.60 % LYMPH % (test code = 736-9) 10.0 % MONO % (test code = 5905-5) 9.6 % EOS % (test code = 713-8) 0.3 % BASO % (test code = 706-2) 0.4 % GRAN MAT x10^3(ANC) (test code = 7007948788) 11.11 10*3/uL 1.99-6.95 H IMM GRAN x10^3 (test code = 6510706339) 0.09 10*3/uL 0.00-0.06 H LYMPH x10^3 (test code = 731-0) 1.40 10*3/uL 1.09-3.23 MONO x10^3 (test code = 742-7) 1.35 10*3/uL 0.36-1.02 H EOS x10^3 (test code = 711-2) 0.04 10*3/uL 0.06-0.53 L BASO x10^3 (test code = 704-7) 0.06 10*3/uL 0.01-0.09 Lab Interpretation (test code = 31272-2) Abnormal [facility] CARE VENOUS BLOOD [id number] 06:40:24 * Test Item Value Reference Range Interpretation Comme nts PH (test code = 5169089678) 7.32-7.42 PCO2 MICHELLE (test code = 9557889630) See_Comment L [Automated messa ge] The system which generated this result transmitted reference range: 41 - 51 mmHg. The reference range was not used to interpret this result as normal/abnormal. PO2 MICHELLE (test code = 9716529071) See_Comment H [Automated messa ge] The system which generated this result transmitted reference range: 25 - 40 mmHg. The reference range was not used to interpret this result as normal/abnormal. HCO3 MICHELLE (test code = 9135701467) See_Comment [Automated messa ge] The system which generated this result transmitted reference range: 24 - 28 mEq/L. The reference range was not used to interpret this result as normal/abnormal. AC VBE(BEAKER) (test code = 8321276237) mEq/L Lab Interpretation (test code = 46535-6) Abnormal [facility] CenterTROPONIN [id number] 05:46:11* Test Item Value Reference Range Interpretation Comments TROPONIN I (test code = 6612720944) 0.003 ng/mL See_Comment [Automated message] The system [...] of biotin. Lab Interpretation (test code = 63478-6) Normal [facility] CenterLAMTATE [id number] 05:33:54* Test Item Value Reference Range Interpretation Comme nts LDH (test code = 6809985006) 427 U/L 300-600 Lab Interpretation (test cod e = 52547-0) Normal [facility] CenterSEDIMENTATION [id number] 05:31:01* Test Item Value Reference Range Interpretation Comme nts ESR (test code = 9048506700) See_Comment [Automated messa ge] The system which generated this result transmitted reference range: 0 - 10 mm/HR. The reference range was not used to interpret this result as normal/abnormal. Lab Interpretation (test code = 55143-9) Normal [facility] CenterLawvic Acid Whole Vrnto5119-84-72 05:09:42* Test Item Value Reference Range Interpretation Comme nts LACTIC ACID (test code = 7412191060) 1.41 mmol/L 0.50-2.20 Lab Interpretation (test cod e = 20946-4) Normal [facility] CenterPOMT GLUCOSE (AUTOMATED)2021-02-26 04:56:49* Test Item Value Reference Range Interpretation Comme nts POCT GLU (test code = 6668063496) 146 mg/dL 70-110 H Lab Interpretation (test cod e = 70215-2) Abnormal [facility] CenterGLYCOSYLATED HEMOGLOBIN (A1C)2021-02-26 04:38:39* Test Item Value Reference Range Interpretation Comme nts HGB A1C (test code = 4548-4) 6.8 % 4.0-5.7 H CATALINA (test code = CATALINA) Reference RangesNormal: <5.7%Prediabetes: 5.7 - 6.4%Diabetes: > 6.5% Lab Interpretation (test code = 33344-4) Abnormal [facility] CenterPhosphorus [id number] 02:43:30* Test Item Value Reference Range Interpretation Comme nts PHOSPHORUS (test code = 7177927072) 3.2 mg/dL 2.5-5.0 Lab Interpretation (test cod e = 79746-7) Normal [facility] CenterTROPONIN [id number] 17:37:48* Test Item Value Reference Range Interpretation Comments TROPONIN I (test code = 9118338665) 0.001 ng/mL See_Comment [Automated message] The system [...] of biotin. Lab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
[2024-07-12] MEDS ORDERED: IBUPROFEN 400 MG TAB ONE (06:31)
[2024-07-12] MEDS ORDERED: guaiFENesin 100 MG/5 ML UCUP ONE (06:31)
[2024-07-12] MEDS ORDERED: GUAIFENESIN/DM 5 ML UCUP ONE (06:34)
--- NOTE | 2024-07-12 07:12 | EDPHYS ---
Physician Documentation [facility] Name: Kartik Swartz Jr Age: 34 yrs Sex: Male : 1990 Arrival Date: 07/12/2024 Time: 06:06 Bed 6 Private MD: Ry Perez Historical: - Allergies: 07/12 06:23 ROBITUSSIN; kd3 06:23 Tylenol-Codeine #3; kd3 06:23 Unable to obtain; kd3 - PMHx: 06:23 Diabetes - NIDDM; Hypertension; Pancreatitis; Schizophrenia; kd3 - PSHx: 06:23 hernia repair; kd3 - Immunization history:: Adult Immunizations up to date. - Infectious Disease History:: Denies. - Social history:: Smoking status: Patient reports the use of cigarette tobacco products, smokes one pack cigarettes per day. Vital Signs: 06:21 BP 131 / 92; Pulse 89; Resp 20; Temp 97.8; Pulse Ox 98% on R/A; Weight 99.79 kg; Height kd3 5 ft. 10 in. ; 06:21 Body Mass Index 31.57 (99.79 kg, 177.8 cm) kd3 MDM: 07:02 Medical Screening Exam initiated ec2 07/12 06:27 Order name: COVID-19 Ag + Flu A+B Ag sp4 07/12 06:27 Order name: Chest Pa And Lat (2 Views) XRAY sp4 Administered Medications: 06:36 Drug: Ibuprofen PO 800 mg PO once Route: PO; kd3 07:00 Follow up: Response: No adverse reaction iw 06:37 Not Given (Patient Refused): dextromethorphan-guaifenesinliquid 10 mg-100 mg/5 ml 20 ml kd3 PO once Disposition Summary: 07/12/24 07:12 Eloped Notes: Disposition: before being seen by provider ec2 Reason: other ec2 Diagnosis - Cough and cold symptoms ec2 Followup: ec2 - With: Private Physician - When: - Reason: Re-evaluation by your physician Signatures: Dispatcher Luciana Rhodes RN RN kd3 Michael Peck MD MD sp4 Ry Cordero MD MD ec2 Pam Peña RN iw Corrections: (The following items were deleted from the chart) 06:24 06:23 Social history: Smoking status: Patient reports the use of cigarette tobacco kd3 products, smokes one-half pack cigarettes per day, kd3 06:27 06:27 COVID-19 Ag + Flu A+B Ag+I.LAB.BRZ ordered. EDMS EDMS 06:28 06:28 Chest Pa And Lat (2 Views)+RAD.RAD.BRZ ordered. EDMS EDMS
--- NOTE | 2024-07-12 07:12 | ER ---
Nurse's Notes [facility] Name: Kartik Swartz Jr Age: 34 yrs Sex: Male : 1990 Arrival Date: 07/12/2024 Time: 06:06 Bed 6 Private MD: Diagnosis: Cough and cold symptoms Presentation: 07/12 06:21 Chief complaint: Patient states: 2 days ago i started having a runny nose. M has kd3 been giving me Tylenol and Mucinex. This morning i started having body aches real bad and feeling sick in my chest like i have pneumonia. I have not been in contact with anyone who has been sick. Coronavirus screen: Vaccine status: Patient reports receiving the 2nd dose of the covid vaccine. Ebola Screen: No symptoms or risks identified at this time. Initial Sepsis Screen: Does the patient meet any 2 criteria? No. Patient's initial sepsis screen is negative. Does the patient have a suspected source of infection? No. Patient's initial sepsis screen is negative. Risk Assessment: Do you want to hurt yourself or someone else? Patient reports no desire to harm self or others. Onset of symptoms was July 12, 2024. 06:21 Method Of Arrival: Ambulatory kd3 06:21 Acuity: JENNIFER 4 kd3 Triage Assessment: 06:24 General: Appears in no apparent distress. Behavior is calm, cooperative. Pain: kd3 Complains of pain in face, scalp, chest, abdomen, right leg and left leg. Neuro: Level of Consciousness is awake, alert, obeys commands, Oriented to person, place, time, situation. Cardiovascular: Capillary refill < 3 seconds Patient's skin is warm and dry. Respiratory: Airway is patent Trachea midline Respiratory effort is even, unlabored, Respiratory pattern is regular, symmetrical. Historical: - Allergies: 06:23 ROBITUSSIN; kd3 06:23 Tylenol-Codeine #3; kd3 06:23 Unable to obtain; kd3 - PMHx: 06:23 Diabetes - NIDDM; Hypertension; Pancreatitis; Schizophrenia; kd3 - PSHx: 06:23 hernia repair; kd3 - Immunization history:: Adult Immunizations up to date. - Infectious Disease History:: Denies. - Social history:: Smoking status: Patient reports the use of cigarette tobacco products, smokes one pack cigarettes per day. Screenin:24 [facility] ED Fall Risk Assessment (Adult) History of falling in the last 3 months, kd3 including since admission No falls in past 3 months (0 pts) Confusion or Disorientation No (0 pts) Intoxicated or Sedated No (0 pts) Impaired Gait No (0 pts) Mobility Assist Device Used No (0 pt) Altered Elimination No (0 pt) Score/Fall Risk Level 0 - 2 = Low Risk Oriented to surroundings. Abuse screen: Denies threats or abuse. Denies injuries from another. Nutritional screening: No deficits noted. Tuberculosis screening: No symptoms or risk factors identified. Assessment: 07:00 General: Appears in no apparent distress. Behavior is calm, cooperative. Pain: kd3 Complains of pain in chest. Neuro: Level of Consciousness is awake, alert, obeys commands, Oriented to person, place, time, situation. Cardiovascular: Patient's skin is warm and dry. Respiratory: Airway is patent Trachea midline Respiratory effort is even, unlabored, Respiratory pattern is regular, symmetrical. 07:05 Reassessment: pt seen walking out of room , cursing. iw Vital Signs: 06:21 BP 131 / 92; Pulse 89; Resp 20; Temp 97.8; Pulse Ox 98% on R/A; Weight 99.79 kg; Height kd3 5 ft. 10 in. ; 06:21 Body Mass Index 31.57 (99.79 kg, 177.8 cm) kd3 ED Course: 06:09 Patient arrived in ED. gm2 06:21 Luciana Jackson RN is Primary Nurse. kd3 06:23 Triage completed. kd3 06:24 Arm band placed on. kd3 06:25 Patient has correct armband on for positive identification. Provided Education on: kd3 viral illness . 06:25 No provider procedures requiring assistance completed. kd3 06:32 COVID-19 Ag + Flu A+B Ag Sent. dd2 06:32 COVID swab sent to lab. Flu and/or RSV swab sent to lab. dd2 06:45 Chest Pa And Lat (2 Views) XRAY In Process Unspecified. EDMS 07:02 Ry Cordero MD is Attending Physician. ec2 07:02 Primary Nurse role handed off by Luciana Jackson RN iw 07:02 Pam Peña, BETSY is Primary Nurse. iw Administered Medications: 06:36 Drug: Ibuprofen PO 800 mg PO once Route: PO; kd3 07:00 Follow up: Response: No adverse reaction iw 06:37 Not Given (Patient Refused): dextromethorphan-guaifenesinliquid 10 mg-100 mg/5 ml 20 ml kd3 PO once Medication: 06:25 VIS not applicable for this client. kd3 Outcome: 07:12 Eloped from patient exam room, Time discovered patient gone: July 12, 2024 at 07:12 iw 07:13 Patient left the ED. iw Signatures: Dispatcher [employer] EDPam Gonzalez RN RN iw Luciana Jackson RN RN kd3 Ry Cordero MD MD ec2 Mitchell, Ginger gm2 DAVIS, DIANA, RN RN dd2 Corrections: (The following items were deleted from the chart) 06:24 06:23 Social history: Smoking status: Patient reports the use of cigarette tobacco kd3 products, smokes one-half pack cigarettes per day, kd3
[2024-07-12 07:36] VITALS: BP 131/92; TEMP 97.8; O2SAT 98
--- NOTE | 2024-07-12 08:22 | RAD REPORT ---
EXAMINATION: TWO VIEW CHEST XR CLINICAL INDICATION: Male, 34 years old. [facility] MA[facility] CHEST PAIN Bed Name: 6 TECHNIQUE: 2 view radiographs of the chest were performed. COMPARISON: 04/06/2017 FINDINGS: The lungs are well inflated and clear apart from elevation of the right hemidiaphragm. No pneumothora x or sizable effusion. The heart is normal in size. Mediastinal contours are unremarkable. IMPRESSION: Elevation of the right hemidiaphragm, more pronounced than on prior exam, could reflect underlying at electasis or subpulmonic effusion.
[2024-07-12 08:32] LABS: Influenza A Ag Negative; Influenza B Ag Negative; SARS-CoV-2 Antigen Rapid Res Negative (Negative)
== END 2024-07-12 07:13 | disposition left against medical advice (07) ==
LOC: ER 06:06
DX: Z53.21 Procedure and treatment not carried out due to patient leaving prior to being seen by health care provider (principal); Z11.52 Encounter for screening for COVID-19
CPT/HCPCS: 36415; 71046; 87428; 99283

== ENCOUNTER 2024-07-15 20:57 | Emergency (ER) | payer OTHER ==
--- OUTSIDE RECORDS SUMMARY | 2024-07-15 21:07 | XMS REPORT | Continuity of Care Document ---
Author Name Unknown Address [address] [facility] [address] [place] [address] [facility] Address [address] [facility] [address] [place] [address] Care Team Providers Care Ppa Teacher Name Role Phone PCP, PATIENT DOES NOT HAVE A Primary Care Physic linden Unavailable XOCHITL FREEMAN Attending Clinician Unavailable Xochitl Freeman PA-C Attending Clinician [phone] ESSENCE LANDRY Attending Clinician Unavailable Essence Landry MD Attending Clinician [phone] Doctor Unassigned, [place] Attending Clinician U Laney Haynes LVN Attending Clinician [phone] GORGE TAVAREZ Attending Clinician Unavailable Franklin Chatman MD Attending Clinician [phone] Chaim Ji MD Attending Clinician [phone] Gorge Tavarez MD Attending Clinician [phone] XOCHITL ECHOLS Attending Clinician Unavail Nikolay Cruz Attending Clinician + [phone] ESSENCE LANDRY Admitting Clinician Unavailable Essence Landry MD Admitting Clinician [phone] GORGE TAVAREZ Admitting Clinician Unavailable Gorge Tavarez MD Admitting Clinician Payers Payer Name Policy Type Policy Number Effective Date Expirati on Date Source [facility] [id number] 00:00:00 [facility] [id number] 00:00:00 Problems Condition Name Condition Details Condition Category Status Onset Date Resolution Date Last Treatment Date Treating Clinician Comments Source Incarcerat ed right inguinal hernia Incarcerat ed right inguinal hernia Disease Active 08-13 00:00: 00 Overview: Formattin g of this note might be different from the original. Added automatic ally from request for surgery [id number] [facility] Essential hypertensi on Essential hypertensi on Disease Active 2020-04 00:00: 00 [facility] Dyslipidem ia Dyslipidem ia Disease Active 2020-04 00:00: 00 [facility] Type 2 diabetes mellitus with other specified complicati on Type 2 diabetes mellitus with other specified complicati on Disease Active 2020-04 00:00: 00 [facility] Atypical chest pain Atypical chest pain Disease Active 2020-04 00:00: 00 [facility] Tachycardi a Tachycardi a Disease Active 2020-04 00:00: 00 [facility] Acute respirator y distress Acute respirator y distress Disease Active 2020-04 00:00: 00 [facility] Obesity (BMI 30-39.9) Obesity (BMI 30-39.9) Disease Active 10-30 00:00: 00 [facility] DKA (diabetic ketoacidos es) DKA (diabetic ketoacidos es) Disease Active 10-30 00:00: 00 [facility] Hyperlipid emia, unspecifie d hyperlipid emia type Hyperlipid emia, unspecifie d hyperlipid emia type Problem Active [facility] Type 2 diabetes mellitus with hyperglyce juan daniel Type 2 diabetes mellitus with hyperglyce juan daniel Problem Active [facility] correction current use of insulin correction current use of insulin Problem Active [facility] History of pancreatit is History of pancreatit is Problem Active [facility] Anxiety Anxiety Problem Active [facility] Hypertensi on, unspecifie d type Hypertensi on, unspecifie d type Problem Active [facility] Allergies, Adverse Reactions, Alerts Allergy Name Allergy Type Status Severity Reaction(s) Onset Date Inactive Date Treating Clinician Comments Source RISPERID ONE DRUG INGREDI Active Hives 08-12 00:00: 00 [facility] Risperid one Propensi ty to adverse reaction s Active Hives 08-12 00:00: 00 [facility] CODEINE DRUG INGREDI Active Hives 10-30 00:00: 00 [facility] GUAIFENE SIN DRUG INGREDI Active SOB 10-30 00:00: 00 [facility] Codeine Propensi ty to adverse reaction s Active Hives 10-30 00:00: 00 [facility] Guaifene sin Propensi ty to adverse reaction s Active Shortness of Breath 10-30 00:00: 00 [facility] Social History Social Habit Start Date Stop Date Quantity Comments Source History of tobacco use Cigarette Smoker [facility] Gender identity [facility] Cigarettes smoked current (pack per day) - Reported 2022-11-23 00:00:00 2022-11-23 00:00:00 [facility] Cigarette pack-years 2022-11-23 00:00:00 2022-11-23 00:00:00 [facility] Tobacco use and exposure 2022-11-23 00:00:00 2022-11-23 00:00:00 Smokeless tobacco non-user [facility] Alcohol intake 2022-11-23 00:00:00 2022-11-23 00:00:00 Current non-drinker of alcohol (finding) [facility] Alcoholic beverage intake 2022-11-23 00:00:00 2022-11-23 00:00:00 Current non-drinker of alcohol (finding) [facility] History of Social function 2022-09-24 00:00:00 2022-09-24 00:00:00 [facility] Exposure to SARS-CoV-2 (event) 2022-09-05 00:00:00 2022-09-15 09:47:00 Not sure [facility] Sex assigned at 1990 00:00:00 1990 00:00:00 [facility] Smoking Status Start Date Stop Date Source Ex-smoker 2022-11-23 00:00:00 2022-11-23 00:00[facility]00 [facility] Current every day smoker 2020-06-19 00:00:00 [facility] Medications Ordered Medication Name Filled Medication Name Start Date Stop Date Current Medication? Ordering Clinician Indication Dosage Frequency Signature (SIG) Comments Components Source ketorolac (TORADOL) tablet 10 mg 05-09 03:15: 00 05-09 02:21 :00 No 10mg 10 mg, Oral, ONCE, 1 dose, On Tue05/08/24 at 2115, Routine [facility] methocarbam oL (ROBAXIN) tablet 1,000 mg 05-09 02:30: 00 05-09 02:21 :00 No 1000mg 1,000 mg, Oral, ONCE, 1 dose, On Tue05/08/24 at 2030, NICOLE [facility] methocarbam oL 500 mg tablet 05-08 00:00: 00 Yes [id number] 500mg Take 1 tablet by mouth 3 (three) times daily as needed for Pain (scale 4-6). [facility] naproxen (NAPROSYN) 500 mg tablet 05-08 00:00: 00 Yes [id number] 500mg Take 1 tablet by mouth in the morning and 1 tablet in the evening. Take with meals. [facility] citalopram 20 mg tablet 20 14:44: 12 Yes 20mg Take 1 tablet by mouth in the morning. [facility] metFORMIN 1,000 mg tablet 10-12 14:44: 12 Yes 1000mg Take 1 tablet by mouth in the morning and 1 tablet in the evening. Take with meals. [facility] metoprolol tartrate 50 mg tablet 10-12 14:44: 12 Yes 50mg Take 1 tablet by mouth in the morning and 1 tablet in the evening. [facility] lactated ringers IV infusion 1,000 mL 09-24 21:15: 00 Yes 1000mL at 75 mL/hr, 1,000 mL, IV Infusion, CONTINUOUS , Starting on Tue09/24/22 at 1615, Until Discontinu ed, Routine, PACU [facility] FENTanyl PF (SUBLIMAZE (PF)) injection 25 mcg 09-24 21:03: 56 Yes 25ug 25 mcg, Slow IV Push, Q5MIN PRN, 4 doses, Starting on Tue09/24/22 at 1603, Until Discontinu ed, Routine, Pain (scale 4-6), PACU [facility] ondansetron (ZOFRAN (PF)) injection 4 mg 09-24 21:03: 56 Yes 4mg 4 mg, Slow IV Push, PRN, 1 dose, Starting on Tue09/24/22 at 1603, Until Discontinu ed, Routine, Nausea and Vomiting (N/V), PACU [facility] sodium chloride 0.9 % irrigation solution 09-24 18:06: 00 09-24 21:05 :01 No PRN, Starting on Tue09/24/22 at 1306, Until Tue09/24/22 at 1605, Intra-op [facility] bupivacaine (preserv free) (SENSORCAIN E MPF) 0.25 % (2.5 mg/mL) 30 mL, BUPivacaine liposome (PF) (EXPAREL (PF)) 1.3 % (13.3 mg/mL) 20 mg, NaCl 0.9% (NS) 50 mL 09-24 18:06: 00 09-24 21:05 :01 No PRN, Starting on Tue09/24/22 at 1306, Intra-op [facility] citalopram 20 mg tablet 09-24 17:20: 52 Yes 20mg Take 1 tablet by mouth in the morning. [facility] metFORMIN 1,000 mg tablet 09-24 17:20: 52 Yes 1000mg Take 1 tablet by mouth in the morning and 1 tablet in the evening. Take with meals. [facility] metoprolol tartrate 50 mg tablet 09-24 17:20: 52 Yes 50mg Take 1 tablet by mouth in the morning and 1 tablet in the evening. [facility] lactated ringers IV infusion 1,000 mL 09-24 15:30: 00 09-24 15:42 :00 No 1000mL at 42 mL/hr, 1,000 mL, IV Infusion, ONCE, 1 dose, On Tue09/24/22 at 1030, Routine, DSU Pre-op [facility] acetaminoph en (TYLENOL) 325 mg Cap 09-24 00:00: 00 10-09 04:59 :00 No [id number] 650mg Take 650 mg by mouth in the morning and 650 mg at noon and 650 mg in the evening. Do all this for 14 days. [facility] celecoxib (CELEBREX) 200 mg capsule 09-24 00:00: 00 10-02 04:59 :00 No [id number] 200mg Take 1 capsule by mouth in the morning and 1 capsule in the evening. Take with meals. Do all this for 7 days. [facility] docusate 100 mg capsule 08-12 09:21: 09 08-12 00:00 :00 No 100mg Take 1 capsule by mouth in the morning. [facility] citalopram (CELEXA) 20 mg tablet 08-12 08:52: 02 Yes 20mg Take 1 tablet by mouth in the morning. [facility] metFORMIN 1,000 mg tablet 08-12 08:52: 02 Yes 1000mg Take 1 tablet by mouth in the morning and 1 tablet in the evening. Take with meals. [facility] aspirin 81 mg chewable tablet 2020-04 00:00: 00 08-12 00:00 :00 No [id number] 81mg Take 1 tablet by mouth daily with breakfast. [facility] docusate (COLACE) 100 mg capsule 2020-04 13:41: 43 Yes 100mg Take 100 mg by mouth daily. [facility] OLANZAPINE (ZYPREXA ORAL) 2020-04 10:34: 52 03-12 00:00 :00 No 20mg Take 20 mg by mouth every evening. [facility] benztropine 1 mg tablet 2020-04 10:34: 52 03-12 00:00 :00 No 1mg Take 1 mg by mouth daily. [facility] METOPROLOL SUCCINATE ORAL 2020-04 10:34: 52 03-12 00:00 :00 No 50mg Take 50 mg by mouth daily. [facility] omeprazole 10 mg capsule 2020-04 10:34: 52 03-12 00:00 :00 No 20mg Take 20 mg by mouth daily. [facility] pravastatin 20 mg tablet 2020-04 10:34: 52 03-12 00:00 :00 No 20mg Take 20 mg by mouth at bedtime. [facility] pravastatin 20 mg tablet 2020-04 00:00: 00 Yes [id number] 20mg Take 1 tablet by mouth at bedtime. [facility] OLANZapine (ZYPREXA) 20 mg tablet 2020-04 00:00: 00 Yes [id number] 20mg Take 1 tablet by mouth at bedtime. [facility] metoprolol succinate XL 50 mg 24 hr tablet 2020-04 00:00: 00 09-24 00:00 :00 No [id number] 50mg Take 1 tablet by mouth 2 (two) times daily. [facility] metformin ER 500 mg 24 hr tablet 2020-04 00:00: 00 08-12 00:00 :00 No [id number] 500mg Take 1 tablet by mouth 2 (two) times daily. [facility] benztropine 1 mg tablet 2020-04 00:00: 00 08-12 00:00 :00 No [id number] 1mg Take 1 tablet by mouth daily. [facility] omeprazole 20 mg capsule 2020-04 00:00: 00 08-12 00:00 :00 No [id number] 20mg Take 1 capsule by mouth daily. [facility] traMADoL 50 mg tablet 2020-04 00:00: 00 08-12 00:00 :00 No [id number] 50mg Take 1 tablet by mouth every 6 (six) hours as needed for Pain (scale 4-6). Indication s: acute pain [facility] acidophilus 100 million cell tablet 2020-04 00:00: 00 08-12 00:00 :00 No [id number] 1g Take 1 tablet by mouth 2 (two) times daily. [facility] amoxicillin -pot clavulanate 500 mg (AUGMENTIN) 500-125 mg tablet 2020-04 00:00: 00 04-03 05:59 :00 No [id number] 500mg Take 1 tablet by mouth 2 (two) times daily for 21 days. [facility] FENTanyl PF (SUBLIMAZE (PF)) injection 50 mcg 2020-04 23:00: 00 Yes 50ug 50 mcg, Slow IV Push, Q8HPRN, Starting on Tue03/11/21 at 1700, Until Discontinu ed, Routine, Pain (scale 7-10) [facility] alteplase (ACTIVASE) flush syringe 10 mg 2020-04 01:15: 00 03-10 00:18 :00 No 10mg 10 mg, Chest Tube, ONCE, 1 dose, On Tue03/09/21 at 1915, NICOLE [facility] alteplase (ACTIVASE) flush syringe 10 mg 2020-04- 14:30: 00 03-09 16:11 :00 No 10mg 10 mg, Chest Tube, Q24H, 3 doses, First dose on 03/07/21 at 0830, Last dose on 03/09/21 at 0830, Routine [facility] dornase kely (PULMOZYME) nebulizer solution Soln 5 mg 2020-04 23:30: 00 03-10 16:50 :35 No 5mg 5 mg, Intrapleur al, Q24H, First dose (after last modificati on) on Tue03/06/21 at 1730, Until Discontinu ed, NICOLE [facility] alteplase (ACTIVASE) flush syringe 10 mg 2020-04 23:30: 00 03-09 23:29 :00 No 10mg 10 mg, Chest Tube, Q24H, 3 doses, First dose (after last modificati on) on Tue03/06/21 at 1730, Last dose on Tue03/08/21 at 1730, NICOLE [facility] dornase kely (PULMOZYME) nebulizer solution Soln 5 mg 2020-04 14:30: 00 03-10 16:50 :35 No 5mg 5 mg, Intrapleur al, Q24H, First dose on Tue03/06/21 at 0830, Until Discontinu ed, Routine [facility] ipratropium -albuteroL (DUONEB) 0.5 mg-3 mg(2.5 mg base)/3 mL nebulizer solution 3 mL 2020-04 21:56: 33 Yes 3mL 3 mL, Inhalation , QIDPRN, Starting on Maureen 03/05/21 at 1556, Until Discontinu ed, Routine, Wheezing [facility] benzocaine- menthoL (CEPACOL SORE THROAT (DECLAN-MEN)) lozenge 1 Lozenge 2020-04 21:43: 42 Yes 1{lozen ge} 1 Lozenge, Oral, Q4HPRN, Starting on Tue03/03/21 at 1543, Until Discontinu ed, Routine, Sore throat [facility] NaCl 0.9% (NS) IV infusion 500 mL 2020-04 21:00: 00 03-03 21:12 :00 No 500mL at 100 mL/hr, IV Infusion, ONCE, 1 dose, On Tue03/03/21 at 1500, Routine [facility] traMADoL (ULTRAM) tablet 50 mg 2020-04 15:35: 18 Yes 50mg 50 mg, Oral, Q6HPRN, Starting on Tue03/03/21 at 0935, Until Discontinu ed, Routine, Pain (scale 4-6) [facility] melatonin (MELATIN) tablet 3 mg 2020-04 05:00: 00 Yes 3mg 3 mg, Oral, QHS, First dose on Tue03/02/21 at 2300, Until Discontinu ed, Routine [facility] KCL (KLOR-CON M20) tablet 40 mEq 2020-04 02:00: 00 03-03 01:59 :00 No 40meq 40 mEq, Oral, BID, 1 dose, First dose (after last reorder) on Tue03/02/21 at 2000, Routine [facility] KCL (KLOR-CON M20) tablet 40 mEq 2020-04 15:15: 00 03-02 14:22 :00 No 40meq 40 mEq, Oral, ONCE, 1 dose, On Tue03/02/21 at 0915, Routine [facility] doxycycline hyclate (Vibramycin ) capsule 100 mg 2020-04 14:45: 00 03-10 14:50 :32 No 100mg 100 mg, Oral, BID, First dose on Tue03/01/21 at 0845, Until Discontinu ed, NICOLE
Re ason for Anti-Infec tive: Empiric Therapy for Suspected Infection< br>Empiric Therapy Site: Respirator y
Durat ion of therapy: 7 days [facility] ipratropium -albuteroL (DUONEB) 0.5 mg-3 mg(2.5 mg base)/3 mL nebulizer solution 3 mL 2020-04 07:45: 00 03-05 21:56 :14 No 3mL 3 mL, Inhalation , QID, First dose (after last modificati on) on 03/01/21 at 0145, Until Discontinu ed, Routine [facility] pseudoephed rine (SUDAFED) tablet 30 mg 2020-04 17:15: 00 Yes 30mg 30 mg, Oral, Q8H, First dose on 02/28/21 at 1215, Until Discontinu ed, Routine [facility] acetaminoph en (TYLENOL) tablet 1,000 mg 2020-04 17:12: 29 Yes 1000mg 1,000 mg, Oral, Q6HPRN, Starting on 02/28/21 at 1212, Until Discontinu ed, Routine, Pain (scale 1-3), Temp > 38.5 C [facility] sodium chloride 7% (HYPER-WAYNE) nebulizer solution 4 mL 2020-04 14:45: 00 02-28 16:05 :00 No 4mL 4 mL, Inhalation , ONCE, 1 dose, On 02/28/21 at 0945, Routine [facility] benzonatate (TESSALON PERLES) capsule 100 mg 2020-04 10:51: 05 Yes 100mg 100 mg, Oral, Q8HPRN, Starting on 02/28/21 at 0551, Until Discontinu ed, Routine, Cough [facility] HYDROcodone -acetaminop hen (NORCO 5) 5-325 mg tablet 1 tablet 2020-04 06:09: 17 03-02 07:08 :17 No 1{tbl} 1 tablet, Oral, Q6HPRN, Starting on 02/28/21 at 0109, Until 03/02/21 at 0108, Routine, Pain (scale 4-6) [facility] sulfur hexafluorid e microsphr (LUMASON) injection 5 mL 2020-04 18:30: 00 02-26 18:45 :00 No [id number] 5mL 5 mL, Intravenou s, ONCE, 1 dose, On Maureen 02/26/21 at 1345, Routine
[employer] team member approving Restricted medication : IVELISSE MANRIQUE [facility] enoxaparin (LOVENOX) injection 40 mg 2020-04 14:00: 00 Yes 40mg 40 mg, Subcutaneo us, DAILY, First dose on Tue02/26/21 at 0900, Until Discontinu ed, Routine [facility] levoFLOXaci n in D5W (LEVAQUIN) 750 [...] y
Durat ion of therapy: 7 days [facility] vancomycin 1500 mg in NS 500 [...] y
Durat ion of therapy: 7 days [facility] ipratropium -albuteroL (DUONEB) 0.5 mg-3 mg(2.5 mg base)/3 mL nebulizer solution 3 mL 2020-04 06:15: 00 03-01 07:34 :57 No 3mL 3 mL, Inhalation , BID, First dose on Maureen 02/26/21 at 0115, Until Discontinu ed, Routine [facility] piperacilli n-tazobacta m (ZOSYN) 3.375 g [...]
Durat ion of Therapy: Other (see Comments) [facility] furosemide (LASIX) injection 20 mg 2020-04 05:00: 00 02-26 04:35 :00 No 20mg 20 mg, IV Push, ONCE, 1 dose, On Maureen 02/26/21 at 0000, [facility] metoprolol (LOPRESSOR) injection 5 mg 2020-04 04:45: 00 02-26 04:04 :00 No 5mg 5 mg, Slow IV Push, ONCE, 1 dose, On Tue02/25/21 at 2345, [facility] - Lispro (HumaLOG) + Fsbg Testing 2020-04 04:15: 00 Yes Subcutaneo us, TID MEALS, First dose on Tue02/25/21 at 2315, Until Discontinu ed, Routine [facility] aspirin chewable tablet 81 mg 2020-04 04:15: 00 Yes 81mg 81 mg, Oral, QAM WITH BREAKFAST, First dose on Tue02/25/21 at 2315, Until Discontinu ed, Routine [facility] FENTanyl PF (SUBLIMAZE (PF)) injection 50 mcg 2020-04 03:48: 36 03-11 22:51 :45 No 50ug 50 mcg, Slow IV Push, Q4HPRN, Starting on Tue02/25/21 at 2248, Until Tue03/11/21 at 1651, Routine, Pain (scale 7-10) [facility] metoprolol succinate XL (TOPROL XL) tablet 50 mg 2020-04 03:45: 00 Yes 50mg 50 mg, Oral, BID, First dose on Tue02/25/21 at 2245, Until Discontinu ed, [facility]OKOT[facility] 8.6 mg 2020-04 03:45: 00 Yes 8.6mg 8.6 mg, Oral, BID, First dose on Tue02/25/21 at 2245, Until Discontinu ed, Routine [facility] docusate (COLACE[facility] capsule 100 mg 2020-04 03:45: 00 Yes 100mg 100 mg, Oral, BID, First dose on Tue02/25/21 at 2245, Until Discontinu ed, Routine [facility] omepraz[facility] (PRILOSEC) capsule 40 mg 2020-04 03:45: 00 Yes 40mg 40 mg, Oral, DAILY, First dose on Tue02/25/21 at 2245, Until Discontinu ed, Routine [facility] pravastatin (PRAVACHOL) tablet 20 mg 2020-04 03:45: 00 Yes 20mg 20 mg, Oral, QHS, First dose on Tue02/25/21 at 2245, Until Discontinu ed, Routine [facility] OLANZapine (ZyPREXA) tablet 20 mg 2020-04 03:45: 00 Yes 20mg 20 mg, Oral, QPM, First dose on Tue02/25/21 at 2245, Until Discontinu ed, Routine [facility] benztropine (COGENTIN) tablet 2 mg 2020-04 03:45: 00 Yes 2mg 2 mg, Oral, QPM, First dose on Tue02/25/21 at 2245, Until Discontinu ed, Routine [facility] nitroglycer in (NITROSTAT) sublingual tablet 0.4 mg 2020-04 01:09: 31 Yes .4mg 0.4 mg, Sublingual , Q5MIN PRN, Starting on Tue02/25/21 at 2008, Until Discontinu ed, Routine, Chest pain [facility] morpHINE injection 4 mg 2020-04 01:09: 00 02-26 03:48 :46 No 4mg 4 mg, Slow IV Push, Q4HPRN, Starting on Tue02/25/21 at 2008, Until Tue02/25/21 at 2248, Routine, Pain (scale 7-10) [facility] HYDROcodone -acetaminop hen (NORCO 5) 5-325 mg tablet 1 tablet 2020-04 01:08: 58 02-28 01:07 :58 No 1{tbl} 1 tablet, Oral, Q6HPRN, Starting on Tue02/25/21 at 2007, Until Tue02/27/21 at 2006, Routine, Pain (scale 4-6) [facility] acetaminoph en (TYLENOL) tablet 650 mg 2020-04 01:08: 57 02-28 17:12 :47 No 650mg 650 mg, Oral, Q6HPRN, Starting on Tue02/25/21 at 2007, Until Tue02/28/21 at 1212, Routine, Pain (scale 1-3) [facility] LIPASE/PROT EASE/AMYLAS E (CREON ORAL) 2020-04 22:59: 11 02-25 00:00 :00 No Take by mouth. [facility] piperacilli n-tazobacta m (ZOSYN) 3.375 g in NaCl 0.9% (NS) 100 mL MINI-BAG 2020-04 22:30: 00 02-25 22:00 :00 No 3.375g 3.375 g, IV Piggyback, ONCE, 1 dose, On Tue02/25/21 at 1730, Administer over 30 Minutes, 100 mL
Reas on for Anti-Infec tive: Documented Infection< br>Documen deshaun Infection Site: Respirator y
Durat ion of Therapy: Other (see Comments) [facility] ondansetron (ZOFRAN (PF)) injection 4 mg 2020-04 21:39: 00 02-25 21:40 :00 No 4mg 4 mg, Slow IV Push, ONCE, 1 dose, On Tue02/25/21 at 1645, NICOLE [facility] FENTanyl PF (SUBLIMAZE (PF)) injection 50 mcg 2020-04 21:39: 00 02-25 21:40 :00 No 50ug 50 mcg, Slow IV Push, ONCE, 1 dose, On Tue02/25/21 at 1645, Routine [facility] iopamidol (ISOVUE 370-500 mL) injection 120 mL 2020-04 18:15: 00 02-25 18:14 :00 No [id number] 120mL 120 mL, Intravenou s, ONCE, 1 dose, On Tue02/25/21 at 1315, Routine [facility] NaCl 0.9% (NS) bolus infusion 1,000 mL 2020-04 17:15: 00 02-25 17:45 :00 No 1000mL at 999 mL/hr, 1,000 mL, IV Infusion, ONCE, 1 dose, On Tue02/25/21 at 1215, NICOLE [facility] iohexol (OMNIPAQUE 350 BULK-150 mL) injection 120 mL 06-19 23:00: 00 06-19 22:47 :00 No 120mL 120 mL, Intravenou s, ONCE, 1 dose, Maureen 06/19/20 at 1700, Routine [facility] NaCl 0.9% (NS) bolus infusion 1,000 mL 06-19 21:45: 00 06-20 00:00 :00 No 1000mL at 999 mL/hr, 1,000 mL, IV Infusion, ONCE, 1 dose, Maureen 06/19/20 at 1545, NICOLE [facility] naproxen sodium (ANAPROX DS) 550 mg tablet 06-19 00:00: 00 Yes [id number] 08 550mg Take 1 tablet by mouth 2 (two) times daily with meals. [facility] OLANZAPINE (ZYPREXA ORAL) 05-05 15:44: 36 Yes 10mg Take 10 mg by mouth every evening. [facility] LIPASE/PROT EASE/AMYLAS E (CREON ORAL) 05-05 15:44: 36 Yes Take by mouth. [facility] fenofibrate 145 mg tablet 05-05 00:00: 00 Yes [id number] 145mg Take 1 tablet by mouth daily. [facility] Insulin Glargine (BASAGLAR KWIKPEN U-100 INSULIN) 100 unit/mL (3 mL) injection 05-05 00:00: 00 Yes [id number] 60U inject 60 Units under the skin daily. [facility] carvedilol 25 mg tablet 12-23 00:00: 00 Yes [id number] 25mg Take 1 tablet by mouth 2 (two) times daily with meals. [facility] atorvastati n 40 mg tablet 12-23 00:00: 00 Yes [id number] 40mg Take 1 tablet by mouth at bedtime. [facility] metformin ER 750 mg 24 hr tablet 12-23 00:00: 00 Yes 750mg Take 1 tablet by mouth 2 (two) times daily. [facility] losartan 50 mg tablet 12-23 00:00: 00 Yes 50mg Take 1 tablet by mouth daily. [facility] ibuprofen 800 mg tablet 09-02 00:00: 00 Yes 800mg Take 1 tablet by mouth every 8 (eight) hours as needed for Pain (scale 4-6). [facility] Ketoprofen Ketoprofen Yes Bee Millender 1 capsule [facility] Niacin ER Niacin ER Yes Bee Millender 1 capsule with food [facility] Atorvastati n Calcium Atorvastati n Calcium Yes Bee Millender 1 tablet in evening [facility] Coreg Coreg Yes Bee Millender 1 tablet [facility] Mobic Mobic Yes Bee Millender 1 tablet [facility] Lofibra Lofibra Yes Bee Millender 1 tablet with food [facility] Indomethaci n Indomethaci n Yes Bee Millender 1 capsule with food or milk [facility] Creon Creon Yes Bee Millender not defined [facility] Metformin HCl Metformin HCl Yes Bee Millender 1 tablet with meals [facility] Lantus SoloStar Lantus SoloStar Yes Bee Millender 60 units [facility] Losartan Potassium Losartan Potassium Yes Bee Rgender 1 tablet [facility] Aspir-Low Aspir-Low Yes Bee Rgender 1 tablet [facility] Zyprexa Zyprexa Yes Bee Rgender 1 tablet [facility] Vital Signs Vital Name Observation Time Observation Value Comments S ource Systolic blood pressure 2024-05-09 02:40:00 186 mm[Hg] [facility] Diastolic blood pressure 2024-05-09 02:40:00 123 mm[Hg] [facility] Heart rate 2024-05-09 02:40:00 108 /min [facility] Respiratory rate 2024-05-09 02:40:00 18 /min [facility] Oxygen saturation in Arterial blood by Pulse oximetry 2024-05-09 02:40:00 99 /min [facility] Body temperature 2024-05-09 01:15:00 36.44 Kristi [facility] Body weight 2024-05-09 01:15:[address] [facility] BMI 2024-05-09 01:15:00 33.23 kg/m2 [facility] Systolic blood pressure 2022-11-23 18:58:00 134 mm[Hg] [facility] Diastolic blood pressure 2022-11-23 18:58:00 95 mm[Hg] [facility] Heart rate 2022-11-23 18:58:00 86 /min [facility] Oxygen saturation in Arterial blood by Pulse oximetry 2022-11-23 18:58:00 96 /min [facility] Body temperature 2022-11-23 18:57:00 36.67 Kristi [facility] Respiratory rate 2022-11-23 18:57:00 20 /min [facility] Body height 2022-11-23 18:57:[address] [facility] Body weight 2022-11-23 18:57:[address] [facility] BMI 2022-11-23 18:57:00 36.92 kg/m2 [facility] Systolic blood pressure 2022-10-12 19:42:00 127 mm[Hg] [facility] Diastolic blood pressure 2022-10-12 19:42:00 85 mm[Hg] [facility] Body temperature 2022-10-12 19:42:00 36.67 Kristi [facility] Respiratory rate 2022-10-12 19:42:00 18 /min [facility] Body height 2022-10-12 19:42:[address] [facility] Body weight 2022-10-12 19:42:[address] [facility] BMI 2022-10-12 19:42:00 34.81 kg/m2 [facility] Oxygen saturation in Arterial blood by Pulse oximetry 2022-10-12 19:42:00 96 /min [facility] Heart rate 2022-09-24 21:50:00 112 /min [facility] Oxygen saturation in Arterial blood by Pulse oximetry 2022-09-24 21:50:00 95 /min [facility] Systolic blood pressure 2022-09-24 21:45:00 137 mm[Hg] [facility] Diastolic blood pressure 2022-09-24 21:45:00 84 mm[Hg] [facility] Body temperature 2022-09-24 21:00:00 36.33 Kristi [facility] Respiratory rate 2022-09-24 21:00:00 18 /min [facility] Body height 2022-09-24 15:28:[address] [facility] Body weight 2022-09-24 15:28:[address] [facility] BMI 2022-09-24 15:28:00 35.87 kg/m2 [facility] Systolic blood pressure 2022-09-24 15:28:00 135 mm[Hg] [facility] Diastolic blood pressure 2022-09-24 15:28:00 93 mm[Hg] [facility] Heart rate 2022-09-24 15:28:00 70 /min [facility] Body temperature 2022-09-24 15:28:00 36.33 Kristi [facility] Respiratory rate 2022-09-24 15:28:00 16 /min [facility] Body height 2022-09-24 15:28:00 177.8 cm [facility] Body weight 2022-09-24 15:28:00 113.399 kg [facility] BMI 2022-09-24 15:28:00 35.87 kg/m2 [facility] Oxygen saturation in Arterial blood by Pulse oximetry 2022-09-24 15:28:00 96 /min [facility] Systolic blood pressure 2022-08-12 13:49:00 141 mm[Hg] [facility] Diastolic blood pressure 2022-08-12 13:49:00 97 mm[Hg] [facility] Heart rate 2022-08-12 13:48:00 78 /min [facility] Body temperature 2022-08-12 13:48:00 36.06 Kristi [facility] Respiratory rate 2022-08-12 13:48:00 18 /min [facility] Body height 2022-08-12 13:48:[address] [facility] Body weight 2022-08-12 13:48:[address] [facility] BMI 2022-08-12 13:48:00 35.87 kg/m2 [facility] Oxygen saturation in Arterial blood by Pulse oximetry 2022-08-12 13:48:00 97 /min [facility] Systolic blood pressure 2021-03-12 13:39:00 111 mm[Hg] [facility] Diastolic blood pressure 2021-03-12 13:39:00 70 mm[Hg] [facility] Heart rate 2021-03-12 13:39:00 78 /min [facility] Body temperature 2021-03-12 13:39:00 36.39 Kristi [facility] Respiratory rate 2021-03-12 13:39:00 18 /min [facility] Oxygen saturation in Arterial blood by Pulse oximetry 2021-03-12 13:39:00 95 /min [facility] Body weight 2021-03-10 11:46:[address] [facility] BMI 2021-03-10 11:46:00 35.58 kg/m2 [facility] Body height 2021-02-26 01:58:[address] [facility] Systolic blood pressure 2020-06-19 23:00:00 135 mm[Hg] [facility] Diastolic blood pressure 2020-06-19 23:00:00 95 mm[Hg] [facility] Heart rate 2020-06-19 23:00:00 92 /min [facility] Respiratory rate 2020-06-19 23:00:00 19 /min [facility] Oxygen saturation in Arterial blood by Pulse oximetry 2020-06-19 23:00:00 98 /min [facility] Body temperature 2020-06-19 21:08:00 36.56 Kristi [facility] Body weight 2020-06-19 21:08:[address] [facility] BMI 2020-06-19 21:08:00 29.53 kg/m2 [facility] Systolic blood pressure 2020-06-11 22:40:00 153 mm[Hg] [facility] Diastolic blood pressure 2020-06-11 22:40:00 108 mm[Hg] [facility] Heart rate 2020-06-11 22:40:00 115 /min [facility] Body temperature 2020-06-11 22:40:00 37.33 Kristi [facility] Respiratory rate 2020-06-11 22:40:00 18 /min [facility] Body weight 2020-06-11 22:40:[address] [facility] BMI 2020-06-11 22:40:00 36.92 kg/m2 [facility] Oxygen saturation in Arterial blood by Pulse oximetry 2020-06-11 22:40:00 98 /min [facility] Procedures Procedure Date / Time Performed Performing Clinician Source POCT GLUCOSE (AUTOMATED) 2022-09-24 21:11:00 Essence Landry [facility] POCT GLUCOSE (AUTOMATED) 2022-09-24 21:11:00 Essence Landry [facility] INGUINAL HERNIORRHAPHY 2022-09-24 17:17:00 Dheeraj Landry [facility] POCT GLUCOSE (AUTOMATED) 2022-09-24 15:35:00 Essence Landry [facility] POCT GLUCOSE (AUTOMATED) 2022-09-24 15:35:00 Essence Landry [facility] DAY SURGERY - ADC 2022-09-24 05:01:00 Doctor Anika ssigned, [place] [facility] EXTERNAL PROVIDER RECORDS 2022-08-18 05:01:00 Do ctor Unassigned, [place] [facility] EXTERNAL PROVIDER RECORDS 2022-08-18 05:01:00 Do ctor Unassigned, [place] [facility] PATIENT TEACHING/INSTRUCTIONS- OUTPATIENT 2022-08-16 05:01:00 Doctor Unassigned, [place] [facility] DISCLOSURE AND CONSENT, MEDICAL AND SURGICAL PROCEDURES 2022-08-13 05:01:00 Doctor Unassigned, [place] [facility] DISCLOSURE AND CONSENT, MEDICAL AND SURGICAL PROCEDURES 2022-08-13 05:01:00 Doctor Unassigned, [place] [facility] EXTERNAL PROVIDER RECORDS 2022-08-10 05:01:00 Do ctor Unassigned, [place] [facility] XR CHEST 1 VW 2021-03-12 07:52:[address] [facility] POCT GLUCOSE (AUTOMATED) 2021-03-12 03:03:00 Gorge Tavarez [facility] POCT GLUCOSE (AUTOMATED) 2021-03-11 22:42:00 Corby nahomi [facility] POCT GLUCOSE (AUTOMATED) 2021-03-11 17:48:00 Corby nahomi [facility] POCT GLUCOSE (AUTOMATED) 2021-03-11 14:06:00 Gorge Tavarez [facility] CBC WITH DIFF 2021-03-11 10:11:00 Fred Marquez [facility] POCT GLUCOSE (AUTOMATED) 2021-03-10 23:38:00 Corby, [facility] POCT GLUCOSE (AUTOMATED) 2021-03-10 17:46:00 Corby [facility] POCT GLUCOSE (AUTOMATED) 2021-03-10 13:56:00 Corby [facility] MAGNESIUM 2021-03-10 11:45:00 Fred Marquez [facility] BASIC METABOLIC PANEL (NA, K, CL, CO2, GLUCOSE, BUN, CREATININE, CA) 2021-03-10 11:45:00 Fred Marquez [facility] CBC WITH DIFF 2021-03-10 11:45:00 Fred Marquez [facility] XR CHEST 1 VW 2021-03-10 02:30:49 Fred Marquez [facility] POCT GLUCOSE (AUTOMATED) 2021-03-09 22:40:00 Corby [facility] POCT GLUCOSE (AUTOMATED) 2021-03-09 17:10:00 Corby [facility] POCT GLUCOSE (AUTOMATED) 2021-03-09 13:43:00 Corby [facility] POCT GLUCOSE (AUTOMATED) 2021-03-09 03:25:00 Corby [facility] POCT GLUCOSE (AUTOMATED) 2021-03-08 22:35:00 Corby [facility] XR CHEST 1 VW 2021-03-08 21:55:38 Fred Marquez [facility] XR CHEST 1 VW 2021-03-08 18:47:03 Fred aMrquez [facility] POCT GLUCOSE (AUTOMATED) 2021-03-08 17:23:00 Corby [facility] POCT GLUCOSE (AUTOMATED) 2021-03-08 13:23:00 Corby [facility] MAGNESIUM 2021-03-08 12:06:00 Fred Marquez [facility] BASIC METABOLIC PANEL (NA, K, CL, CO2, GLUCOSE, BUN, CREATININE, CA) 2021-03-08 12:06:00 Fred Marquez [facility] CBC WITH DIFF 2021-03-08 12:05:00 Fred Marquez [facility] POCT GLUCOSE (AUTOMATED) 2021-03-08 01:58:00 Corby [facility] POCT GLUCOSE (AUTOMATED) 2021-03-07 22:48:00 Corby [facility] POCT GLUCOSE (AUTOMATED) 2021-03-07 17:13:00 Corby [facility] POCT GLUCOSE (AUTOMATED) 2021-03-07 14:37:00 Corby [facility] POCT GLUCOSE (AUTOMATED) 2021-03-06 22:23:00 Corby [facility] POCT GLUCOSE (AUTOMATED) 2021-03-06 18:13:00 Corby [facility] CT THORAX WO CONTRAST 2021-03-06 17:19:17 Dasha Swansonarrosio [facility] POCT GLUCOSE (AUTOMATED) 2021-03-06 13:55:00 Corby [facility] POCT GLUCOSE (AUTOMATED) 2021-03-06 02:53:00 Corby [facility] POCT GLUCOSE (AUTOMATED) 2021-03-05 21:46:00 Corby [facility] XR CHEST 1 VW 2021-03-05 18:48:00 Fred Marquez [facility] POCT GLUCOSE (AUTOMATED) 2021-03-05 17:47:00 Cobry [facility] POCT GLUCOSE (AUTOMATED) 2021-03-05 13:51:00 Corby [facility] MAGNESIUM 2021-03-05 10:03:00 Fred Marquez [facility] BASIC METABOLIC PANEL (NA, K, CL, CO2, GLUCOSE, BUN, CREATININE, CA) 2021-03-05 10:03:00 Fred Marquez [facility] CBC WITH DIFF 2021-03-05 10:02:00 Fred Marquez [facility] POCT GLUCOSE (AUTOMATED) 2021-03-04 22:05:00 Corby [facility] CYTO PLEURAL FLUID 2021-03-04 21:57:00 [facility] 2021-03-04 21:55:00 Laury Swanson [facility] T.PROTEIN BODY FLUID 2021-03-04 21:54:00 Jake Swanson [facility] FUNGUS (ROUTINE) CULTURE 2021-03-04 21:54:00 Dasha Swanson [facility] BODY FLUID CULTURE(AEROBIC/ANAEROBIC ) 2021-03-04 21:54:00 Jake Swanson [facility] LDH TOTAL BODY FLUID 2021-03-04 21:54:00 Jake Swanson [facility] XR CHEST 1 VW 2021-03-04 21:41:43 Jake Swanson [facility] POCT GLUCOSE (AUTOMATED) 2021-03-04 17:11:00 Gorge Tavarez [facility] XR CHEST 1 VW 2021-03-04 16:12:48 Fred Marquez [facility] MAGNESIUM 2021-03-04 15:25:00 Fred Marquez [facility] BASIC METABOLIC PANEL (NA, K, CL, CO2, GLUCOSE, BUN, CREATININE, CA) 2021-03-04 15:25:00 Fred Marquez [facility] POCT GLUCOSE (AUTOMATED) 2021-03-04 13:30:00 Gorge Tavarez [facility] LACTATE DEHYDROGENASE 2021-03-04 09:06:00 [facility] CBC WITH DIFF 2021-03-04 09:06:00 Fred Marquez [facility] CT THORAX WO CONTRAST 2021-03-03 20:30:51 Josh aMrquez [facility] POCT GLUCOSE (AUTOMATED) 2021-03-03 17:53:00 Gorge Tavarez [facility] POCT GLUCOSE (AUTOMATED) 2021-03-03 13:30:00 Gorge Tavarez [facility] PHOSPHORUS 2021-03-03 11:30:00 [facility] MAGNESIUM 2021-03-03 11:30:00 [facility] BASIC METABOLIC PANEL (NA, K, CL, CO2, GLUCOSE, BUN, CREATININE, CA) 2021-03-03 11:30[facility]00 [facility] 2021-03-03 11:30:[address] [facility] POCT GLUCOSE (AUTOMATED) 2021-03-03 01:52:00 Corby [facility] POCT GLUCOSE (AUTOMATED) 2021-03-02 22:35:00 Corby [facility] POCT GLUCOSE (AUTOMATED) 2021-03-02 17:42:00 Corby [facility] POCT GLUCOSE (AUTOMATED) 2021-03-02 13:35:00 Corby [facility] COMP. METABOLIC PANEL ([id number]) 2021-03-02 10:53:[address] [facility] CBC WITH DIFF 2021-03-02 10:52:[address] [facility] POCT GLUCOSE (AUTOMATED) 2021-03-02 03:55:00 Corby [facility] POCT GLUCOSE (AUTOMATED) 2021-03-01 22:54:00 Corby [facility] POCT GLUCOSE (AUTOMATED) 2021-03-01 17:34:00 Corby [facility] POCT GLUCOSE (AUTOMATED) 2021-03-01 14:28:00 Corby [facility] PHOSPHORUS 2021-03-01 09:22:00 Chaim Ji [facility] MAGNESIUM 2021-03-01 09:22:00 Chaim Ji [facility] BASIC METABOLIC PANEL (NA, K, CL, CO2, GLUCOSE, BUN, CREATININE, CA) 2021-03-01 09:22:00 [facility] 2021-03-01 09:22:[address] [facility] POCT GLUCOSE (AUTOMATED) 2021-03-01 00:42:00 Corby [facility] POCT GLUCOSE (AUTOMATED) 2021-02-28 22:04:00 Gorge Tavarez [facility] SPUTUM CULTURE 2021-02-28 17:09:00 Chaim Ji [facility] POCT GLUCOSE (AUTOMATED) 2021-02-28 16:45:00 Gorge Tavarez [facility] PNEUMOCOCCAL ANTIGEN 2021-02-28 14:11:00 Dana Ji [facility] POCT GLUCOSE (AUTOMATED) 2021-02-28 12:52:00 Corby [facility] COMP. METABOLIC PANEL ([id number]) 2021-02-28 11:09:00 Corby [facility] CBC WITH DIFF 2021-02-28 11:09:[address] [facility] POCT GLUCOSE (AUTOMATED) 2021-02-28 01:52:00 Corby [facility] POCT GLUCOSE (AUTOMATED) 2021-02-27 21:46:00 oCrby [facility] POCT GLUCOSE (AUTOMATED) 2021-02-27 16:40:00 Corby [facility] AFB CULTURE 2021-02-27 13:26:00 Gorge Tavarez [facility] MYCOBACTERIUM TUBERCULOSIS COMPLEX PCR 2021-02-27 13:26:00 Leigha Thorne [facility] POCT GLUCOSE (AUTOMATED) 2021-02-27 12:29:00 Corby [facility] POCT GLUCOSE (AUTOMATED) 2021-02-27 11:07:00 Gorge Tavarez [facility] PHOSPHORUS 2021-02-27 07:00:00 Chaim Ji [facility] MAGNESIUM 2021-02-27 07:00:00 Chaim Ji [facility] COMP. METABOLIC PANEL ([id number]) 2021-02-27 07:00:00 Gorge Tavarez [facility] VANCOMYCIN TROUGH 2021-02-27 07:00:00 Gorge Tavarez [facility] CBC WITH DIFF 2021-02-27 07:00:00 Chaim Ji [facility] POCT GLUCOSE (AUTOMATED) 2021-02-27 05:01:00 Goreg Tavarez [facility] POCT GLUCOSE (AUTOMATED) 2021-02-27 00:19:00 Gorge Tavarez [facility] TRANSTHORACIC ECHO (TTE) COMPLETE W/ CONTRAST 2021-02-26 18:22:00 Gorge Tavarez [facility] LACTATE DEHYDROGENASE 2021-02-26 17:07:00 Dash Tavarez [facility] POCT GLUCOSE (AUTOMATED) 2021-02-26 16:37:00 Corby nahomi [facility] MRSA / MSSA SCREEN BY PCR, JAYDE 2021-02-26 16:16:00 Fara Bettencourt [facility] XR CHEST 1 VW 2021-02-26 15:58:57 Jake Swanson [facility] IR THORACENTESIS WITH IMAGING 2021-02-26 15:45:04 Gorge Tavarez [facility] AMYLASE BODY FLUID 2021-02-26 15:15:00 Corby nahomi [facility] GLUCOSE BODY FLUID 2021-02-26 15:15:00 Corby nahomi [facility] PH, BODY FLUID 2021-02-26 15:15:[address] [facility] T.PROTEIN BODY FLUID 2021-02-26 15:15:00 Kady Tavarez [facility] LDH TOTAL BODY FLUID 2021-02-26 15:15:00 Kady Tavarez [facility] BODY FLUID DIRECT COUNT 2021-02-26 15:15:00 Cruz Tavarez [facility] FUNGUS (ROUTINE) CULTURE 2021-02-26 15:15:00 Corby nahomi [facility] BODY FLUID CULTURE(AEROBIC/ANAEROBIC ) 2021-02-26 15:15:00 Corby [facility] CYTO PLEURAL FLUID 2021-02-26 15:15:00 Chaim Ji [facility] AFB CULTURE 2021-02-26 14:51:00 Leigha Thorne [facility] MYCOBACTERIUM TUBERCULOSIS COMPLEX PCR 2021-02-26 14:51:00 Leigha Thorne [facility] POCT GLUCOSE (AUTOMATED) 2021-02-26 14:22:00 Gorge Tavarez [facility] PROTEIN TOTAL 2021-02-26 09:26:00 [facility] URIC ACID 2021-02-26 09:26:00 Gorge Tavarez [facility] AMYLASE 2021-02-26 09:26:00 Gorge Tavarez [facility] MAGNESIUM 2021-02-26 09:26:00 [facility] FERRITIN SERUM 2021-02-26 09:26:[address] [facility] TROPONIN I 2021-02-26 09:26:00 Corby nahomi [facility] THYROID STIMULATING HORMONE 2021-02-26 09:26:00 Gorge Tavarez [facility] COMP. METABOLIC PANEL ([id number]) 2021-02-26 09:26:00 Corby [facility] LIPID PANEL ([id number])(TOTAL CHOLESTEROL, TRIGLYCERIDES, HDL) 2021-02-26 09:26:00 Corby [facility] IRON PANEL 2021-02-26 09:26:00 Gorge Tavarez [facility] CBC WITH DIFF 2021-02-26 09:26:00 Chaim Ji [facility] N-TERMINAL PRO-BNP 2021-02-26 09:26:00 Gorge Tavarez [facility] HIV 1/2 AG-AB WITH REFLEX 2021-02-26 09:26:00 Chaim Ji [facility] AC ABG + LACTIC ACID 2021-02-26 08:24:00 Kady Tavarez [facility] XR CHEST 1 VW 2021-02-26 06:28:24 Gorge [facility]arez [facility] ACUTE CARE VENOUS BLOOD GAS 2021-02-26 06:21:00 Gorge Tavarez [facility] HB ECG ROUTINE & RHYTHM STRIP 2021-02-26 05:47:31 Gorge Tavarez [facility] BLOOD CULTURE SCREEN 2021-02-26 05:01:00 Kady Tavarez [facility] LACTATE DEHYDROGENASE 2021-02-26 05:01:00 Dash Tavarez [facility] VITAMIN B12, LEVEL 2021-02-26 05:01:00 Gorge Tavarez [facility] C-REACTIVE PROTEIN 2021-02-26 05:01:00 Gorge Tavarez [facility] TROPONIN I 2021-02-26 05:01:00 [facility]ATE 2021-02-26 05:01:00 Corby nahomi [facility] VITAMIN D, 25-OH 2021-02-26 05:01:00 [facility] PROCALCIT[facility]IN 2021-02-26 05:01:00 [facility] L[facility] WHOLE [facility]LOOD 2021-02-26 04:59:00 Cruz Tavarez [facility] POCT GLUCOSE (AUTOMATED) 2021-02-26 04:32:00 Gorge Tavarez [facility] CT ABDOMEN PELVIS W CONTRAST 2021-02-25 18:36:20 Franklin Chatman [facility] CT THORAX W CONTRAST 2021-02-25 18:36:20 Yadiel Chatman [facility] PHOSPHORUS 2021-02-25 16:33:00 Chaim Ji [facility] LIPASE 2021-02-25 16:33:00 Franklin [facility] TROPONIN I 2021-02-25 16:33:00 Franklin Chatman [facility] COMP. METABOLIC PANEL ([id number]) 2021-02-25 16:33:00 Franklin Chatman [facility] SALICYLATE 2021-02-25 16:33:00 Franklin Chatman [facility] ETHANOL 2021-02-25 16:33:00 Franklin Chatman [facility] DIFF CONSULT INTERPRETATION 2021-02-25 16:33:00 Gorge Tavarez [facility] CBC WITH DIFF 2021-02-25 16:33:[address] [facility] GLYCOSYLATED HEMOGLOBIN (A1C) 2021-02-25 16:33:00 Gorge Tavarez [facility] PROTHROMBIN TIME / INR 2021-02-25 16:33:00 Troy Chatman [facility] ACTIVATED PARTIAL THRMPLAS ASYA 2021-02-25 16:33:00 Franklin Chatman [facility] N-TERMINAL PRO-BNP 2021-02-25 16:33:00 Franklin Chatman [facility] AC PANEL 21 + LACTIC ACID 2021-02-25 16:32:00 Franklin Chatman [facility] COVID-19 (ID NOW RAPID TESTING) 2021-02-25 16:27:00 Franklin Chatman [facility] LAB ONLY COVID INTERPRETATION 2021-02-25 16:27:00 Franklin Chatman [facility] URINALYSIS 2021-02-25 16:26:00 Franklin Chatman [facility] URINE DRUG (IMMUNOASSAY) - COMPREHENSIVE DRUG SCREEN W/O REFLEX 2021-02-25 16:26:00 Franklin Chatman [facility] EKG-12 LEAD 2021-02-25 16:00:24 Franklin Chatman [facility] AUTHORIZATION FOR RELEASE OF PHI 2020-11-13 05:01:00 Doctor Unassigned, [place] [facility] CT ABDOMEN PELVIS W CONTRAST 2020-06-19 22:50:39 Nikolay Schroeder [facility] BASIC METABOLIC PANEL (NA, K, CL, CO2, GLUCOSE, BUN, CREATININE, CA) 2020-06-19 21:56:00 Nikolay Schroeder [facility] CBC WITH DIFF 2020-06-19 21:56:00 Nikolay Schroeder [facility] URINALYSIS 2020-06-19 21:56:[address] [facility] COVID-19 (ID NOW RAPID TESTING) 2020-06-19 21:56:00 Nikolay Schroeder [facility] NOTICE OF PRIVACY PRACTICES 2020-06-19 21:00:39 Doctor Unassigned, [place] [facility] CONSENT/REFUSAL FOR DIAGNOSIS AND TREATMENT 2020-06-19 21:00:23 Doctor Unassigned, [place] [facility] Encounters Start Date/Time End Date/Time Encounter Type Admission Type Attending [facility] Care Facility Care Department Encounter ID Source 2024-07-12 08:56:00 Outpatient [facility] [id number] [facility] 2021-02-22 01:27:58 Emergency [facility] [id number] [facility] 2021-02-21 23:50:41 Emergency [facility] [id number] [facility] 2024-05-08 19:17:00 2024-05-08 20:53:00 Emergency X XOCHITL FREEMAN [facility] ERT [id number] [facility] 2024-05-08 19:17:00 2024-05-08 20:53:00 Emergency Xochitl Freeman [facility] [id number] [facility] 2022-11-23 13:15:00 2022-11-23 13:30:00 Office Visit Landry Essence [facility] [id number] [facility] 2022-11-23 13:15:00 2022-11-23 13:15:00 Outpatient R LANDRYESSENCE [facility] [id number] [facility] 2022-10-12 14:00:00 2022-10-12 14:15:00 Office Visit LandryEssence panda [facility] [id number] [facility] 2022-10-12 14:00:00 2022-10-12 14:00:00 Outpatient R ESSENCE LANDRY [facility] [id number] [facility] 2022-09-24 10:13:00 2022-09-24 17:05:00 [id number] 2022-09-24 10:13:00 2022-09-24 17:05:00 Hospital Encounter [facility] [facility] 1.2840.114 350.1.13.10 4.2.7.2.686 [id number] [facility] 2022-09-24 12:00:00 2022-09-24 15:06:00 Surgery Frantz [facility] 1.2.840.114 350.1.13.10 4.2.7.2.686 [id number] [facility] 2022-09-24 00:00:00 2022-09-24 00:00:00 Orders Only Doctor Unassigned, [place] [facility] 1.2840.114 350.1.13.10 4.2.7.2.686 [id number] [id number] [facility] 2022-08-16 00:00:00 2022-08-16 00:00:00 Telephone [facility]antz [facility] 1.2840.114 350.1.13.10 4.2.7.2.686 [id number] [facility] 2022-08-16 00:00:00 2022-08-16 00:00:00 Orders Only Doctor Unassigned, [place] [facility] 1.2840.114 350.1.13.10 4.2.7.2.686 [id number] [id number] [facility] 2022-08-12 09:00:00 2022-08-12 11:17:17 Outpatient R ESSENCE LANDRY [facility] [id number] [facility] 2022-08-12 09:00:00 2022-08-12 11:17:17 Office Visit Essence Landry [facility] 1..840.114 350.1.13.10 4.2.7.2.686 [id number] [facility] 2022-08-10 15:00:00 2022-08-10 15:00:00 Outpatient R ESSENCE LANDRY [facility] [id number] [facility] 2022-08-10 00:00:00 2022-08-10 00:00:00 Orders Only Doctor Unassigned, [place] [facility] 1.840.114 350.1.13.10 4.2.7.2.686 [id number] 009 [id number] [facility] 2021-03-13 00:00:00 2021-03-13 00:00:00 Transition of Care Laney Roy 1..840.114 350.1.13.10 4.2.7.2.686 [id number] [facility] 2021-02-25 11:10:00 2021-03-12 13:40:00 Inpatient X GOGRE TAVAREZ [facility] [id number] [facility] 2021-02-25 11:10:00 2021-03-12 13:40:00 Hospital Encounter Franklin Chatman Yaman Lakhani, [facility] 1..840.114 350.1.13.10 4.2.7.2.686 [id number] [facility] 2020-11-13 00:00:00 2020-11-13 00:00:00 Orders Only Doctor Unassigned, [place] [facility] 1.2.840.114 350.1.13.10 4.2.7.2.686 [id number] [id number] [facility] 2020-07-04 10:45:00 2020-07-04 10:45:00 Outpatient XOCHITL RANDALL [facility] [id number] [facility] 2020-06-19 15:11:00 2020-06-19 19:23:00 Emergency [facility] 1.2.840.114 350.1.13.10 4.2.7.2.686 [id number] [facility] 2020-06-19 00:00:00 2020-06-19 00:00:00 Orders Only Doctor Unassigned, [place] [facility] 1.2.840.114 350.1.13.10 4.2.7.2.686 [id number] 009 [id number] [facility] 2020-06-11 16:42:00 2020-06-11 18:10:00 Emergency [facility] 1.2.840.114 350.1.13.10 4.2.7.2.686 [id number] [facility] 2017-10-13 09:10:00 2017-10-13 09:10:00 Outpatient [facility] [id number] [facility] 2017-10-13 08:45:00 2017-10-13 08:45:00 Outpatient [facility] [id number] [facility] 2017-07-13 09:45:00 2017-07-13 09:45:00 Outpatient [facility] [id number] [facility] Results Test Description Test Time Test Comments Results Result [facility] 21:13:50* Test Item Value Reference Range Interpretation Comme nts POCT GLU (test code = 8425158976) 295 mg/dL 70-110 H Lab Interpretation (test cod e = 87323-0) Abnormal [facility] GLUCOSE (AUTOMATED)2022-09-24 15:38:09* Test Item Value Reference Range Interpretation Comme nts POCT GLU (test code = 1248536168) 284 mg/dL 70-110 H Lab Interpretation (test cod e = 16887-7) Abnormal [facility] GLUCOSE (AUTOMATED)2022-09-24 15:38:09* Test Item Value Reference Range Interpretation Comme nts POCT GLU (test code = 3864333495) 284 mg/dL 70-110 H Lab Interpretation (test cod e = 31345-2) Abnormal [facility] GLUCOSE (AUTOMATED)2021-03-12 03:12:44* Test Item Value Reference Range Interpretation Comme nts POCT GLU (test code = 3067253681) 110 mg/dL 70-110 Lab Interpretation (test cod e = 25640-7) Normal [facility] GLUCOSE (AUTOMATED)2021-03-11 22:45:29* Test Item Value Reference Range Interpretation Comme nts POCT GLU (test code = 8243367592) 123 mg/dL 70-110 H Lab Interpretation (test cod e = 89471-3) Abnormal [facility] GLUCOSE (AUTOMATED)2021-03-11 17:54:49* Test Item Value Reference Range Interpretation Comme nts POCT GLU (test code = 2888878473) 139 mg/dL 70-110 H Lab Interpretation (test cod e = 20620-2) Abnormal [facility] GLUCOSE (AUTOMATED)2021-03-11 14:20:36* Test Item Value Reference Range Interpretation Comme nts POCT GLU (test code = 4816762915) 109 mg/dL 70-110 Lab Interpretation (test cod e = 83678-2) Normal [facility] WITH [id number] 11:18:50* Test Item Value Reference Range Interpretation [...] 32.2 g/dL 31.2-35.0 RDW-SD (test code = 93401-0) 41.5 fL 38.5-51.6 RDW-CV (test code = 788-0) 12.6 % 12.1-15.4 PLT (test code = 777-3) See_Comment H [Automated messa ge] The system which generated this result transmitted reference range: 150 - 328 10*3/?L. The reference range was not used to interpret this result as normal/abnormal. MPV (test code = 00299-1) 9.8 fL 9.8-13.0 NRBC/100 WBC (test code = 3706804470) See_Comment [Automated [employer] ssage] The system which generated this result transmitted reference range: 0.0 - 10.0 /100 WBCs. The reference range was not used to interpret this result as normal/abnormal. NRBC x10^3 (test code = 9887089552) <0.01 See_Comment [Automated messa ge] The system which generated this result transmitted reference range: 10*3/?L. The reference range was not used to interpret this result as normal/abnormal. GRAN MAT (NEUT) % (test code = 770-8) 55.2 % IMM GRAN % (test code = 6469852091) 0.60 % LYMPH % (test code = 736-9) 31.4 % MONO % (test code = 5905-5) 9.3 % EOS % (test code = 713-8) 2.7 % BASO % (test code = 706-2) 0.8 % GRAN MAT x10^3(ANC) (test code = 5691240390) 3.44 10*3/uL 1.99-6.95 IMM GRAN x10^3 (test code = 9713427737) 0.04 10*3/uL 0.00-0.06 LYMPH x10^3 (test code = 731-0) 1.96 10*3/uL 1.09-3.23 MONO x10^3 (test code = 742-7) 0.58 10*3/uL 0.36-1.02 EOS x10^3 (test code = 711-2) 0.17 10*3/uL 0.06-0.53 BASO x10^3 (test code = 704-7) 0.05 10*3/uL 0.01-0.09 Lab Interpretation (test code = 10044-6) Abnormal [facility] GLUCOSE (AUTOMATED)2021-03-10 23:57:30* Test Item Value Reference Range Interpretation Comme nts POCT GLU (test code = 2528527381) 153 mg/dL 70-110 H Lab Interpretation (test cod e = 96832-7) Abnormal [facility] GLUCOSE (AUTOMATED)2021-03-10 17:53:36* Test Item Value Reference Range Interpretation Comme nts POCT GLU (test code = 6313242905) 139 mg/dL 70-110 H Lab Interpretation (test cod e = 71839-9) Abnormal [facility] GLUCOSE (AUTOMATED)2021-03-10 14:30:24* Test Item Value Reference Range Interpretation Comme nts POCT GLU (test code = 3169721888) 111 mg/dL 70-110 H Lab Interpretation (test cod e = 04013-1) Abnormal [facility] METABOLIC PANEL (NA, K, CL, CO2, GLUCOSE, BUN, CREATININE, CA)2021-03-10 13:38:22* Test Item Value Reference Range Interpretation Comme nts NA (test code = 7245974127) 134 mmol/L 135-145 L K (test code = 9789957173) 3.9 mmol/L 3.5-5.0 CL (test code = 5415655910) 103 mmol/L 98-108 CO2 TOTAL (test code = 5780581090) 28 mmol/L 23-31 AGAP (test code = 5656004849) 2-16 BUN (test code = 7519172639) 10 mg/dL 7-23 GLUCOSE (test code = 0738713616) 116 mg/dL 70-110 H CREATININE (test code = 6335461033) 0.54 mg/dL 0.60-1.25 L CALCIUM (test code = 7701456395) 8.9 mg/dL 8.6-10.6 eGFR (test code = 9609840602) mL/min/1.73m2 CATALINA (test code = CATALINA) Association [...] imaging tests). Lab Interpretation (test code = 14073-7) [facility] 13:38:22* Test Item Value Reference Range Interpretation Comme nts MAGNESIUM (test code = 9816361382) 2.2 mg/dL 1.7-2.4 Lab Interpretation (test cod e = 98420-6) Normal [facility] WITH [id number] 12:21:36* Test Item Value Reference Range Interpretation [...] 32.1 g/dL 31.2-35.0 RDW-SD (test code = 68686-2) 42.3 fL 38.5-51.6 RDW-CV (test code = 788-0) 12.9 % 12.1-15.4 PLT (test code = 777-3) See_Comment H [Automated messa ge] The system which generated this result transmitted reference range: 150 - 328 10*3/?L. The reference range was not used to interpret this result as normal/abnormal. MPV (test code = 72734-6) 9.9 fL 9.8-13.0 NRBC/100 WBC (test code = 1585303043) See_Comment [Automated me ssage] The system which generated this result transmitted reference range: 0.0 - 10.0 /100 WBCs. The reference range was not used to interpret this result as normal/abnormal. NRBC x10^3 (test code = 5265693471) <0.01 See_Comment [Automated messa ge] The system which generated this result transmitted reference range: 10*3/?L. The reference range was not used to interpret this result as normal/abnormal. GRAN MAT (NEUT) % (test code = 770-8) 64.2 % IMM GRAN % (test code = 2621127965) 1.00 % LYMPH % (test code = 736-9) 23.0 % MONO % (test code = 5905-5) 9.8 % EOS % (test code = 713-8) 1.5 % BASO % (test code = 706-2) 0.5 % GRAN MAT x10^3(ANC) (test code = 7124889328) 6.50 10*3/uL 1.99-6.95 IMM GRAN x10^3 (test code = 3572195383) 0.10 10*3/uL 0.00-0.06 H LYMPH x10^3 (test code = 731-0) 2.33 10*3/uL 1.09-3.23 MONO x10^3 (test code = 742-7) 0.99 10*3/uL 0.36-1.02 EOS x10^3 (test code = 711-2) 0.15 10*3/uL 0.06-0.53 BASO x10^3 (test code = 704-7) 0.05 10*3/uL 0.01-0.09 Lab Interpretation (test code = 22172-7) Abnormal [facility] GLUCOSE (AUTOMATED)2021-03-09 22:46:56* Test Item Value Reference Range Interpretation Comme nts POCT GLU (test code = 2777668837) 119 mg/dL 70-110 H Lab Interpretation (test cod e = 79448-0) Abnormal [facility] GLUCOSE (AUTOMATED)2021-03-09 17:16:26* Test Item Value Reference Range Interpretation Comme nts POCT GLU (test code = 0068103199) 126 mg/dL 70-110 H Lab Interpretation (test cod e = 07930-4) Abnormal [facility] GLUCOSE (AUTOMATED)2021-03-09 13:50:01* Test Item Value Reference Range Interpretation Comme nts POCT GLU (test code = 7533530394) 110 mg/dL 70-110 Lab Interpretation (test cod e = 41515-4) Normal [facility] GLUCOSE (AUTOMATED)2021-03-09 03:32:40* Test Item Value Reference Range Interpretation Comme nts POCT GLU (test code = 4284175058) 145 mg/dL 70-110 H Notified Provide r Lab Interpretation (test code = 73519-3) Abnormal [facility] GLUCOSE (AUTOMATED)2021-03-08 22:44:07* Test Item Value Reference Range Interpretation Comme nts POCT GLU (test code = 0010496390) 135 mg/dL 70-110 H Lab Interpretation (test cod e = 52078-9) Abnormal [facility] GLUCOSE (AUTOMATED)2021-03-08 17:39:54* Test Item Value Reference Range Interpretation Comme nts POCT GLU (test code = 1264369157) 126 mg/dL 70-110 H Lab Interpretation (test cod e = 46229-5) Abnormal [facility] GLUCOSE (AUTOMATED)2021-03-08 13:26:14* Test Item Value Reference Range Interpretation Comme nts POCT GLU (test code = 3837389945) 122 mg/dL 70-110 H Lab Interpretation (test cod e = 84289-7) Abnormal [facility] METABOLIC PANEL (NA, K, CL, CO2, GLUCOSE, BUN, CREATININE, CA)2021-03-08 12:52:59* Test Item Value Reference Range Interpretation Comme nts NA (test code = 4787532570) 133 mmol/L 135-145 L K (test code = 4653537813) 4.5 mmol/L 3.5-5.0 CL (test code = 8615843457) 101 mmol/L 98-108 CO2 TOTAL (test code = 7780006219) 24 mmol/L 23-31 AGAP (test code = 4080094045) 2-16 BUN (test code = 1125559204) 12 mg/dL 7-23 GLUCOSE (test code = 4485508893) 136 mg/dL 70-110 H CREATININE (test code = 5457417156) 0.65 mg/dL 0.60-1.25 CALCIUM (test code = 1532612581) 8.9 mg/dL 8.6-10.6 eGFR (test code = 9868770102) mL/min/1.73m2 CATALINA (test code = CATALINA) Association [...] imaging tests). Lab Interpretation (test code = 93104-6) [facility] 12:52:59* Test Item Value Reference Range Interpretation Comme nts MAGNESIUM (test code = 6959155964) 2.2 mg/dL 1.7-2.4 Lab Interpretation (test cod e = 40844-4) [facility] [id number] 12:21:57* Test Item Value Reference Range Interpretation Comme nts WBC (test code = 6690-2) See_Comment H [Automated [employer]] The system which generated this result transmitted reference range: 4.20 - 10.70 10*3/?L. The reference range was not used to interpret this result as normal/abnormal. RBC (test code = 789-8) See_Comment L [Automated [employer] ge] The system which generated this result [...] 32.4 g/dL 31.2-35.0 RDW-SD (test code = 86488-0) 41.7 fL 38.5-51.6 RDW-CV (test code = 788-0) 12.9 % 12.1-15.4 PLT (test code = 777-3) See_Comment H [Automated messa ge] The system which generated this result transmitted reference range: 150 - 328 10*3/?L. The reference range was not used to interpret this result as normal/abnormal. MPV (test code = 07771-0) 10.0 fL 9.8-13.0 NRBC/100 WBC (test code = 9254159087) See_Comment [Automated [employer] ssage] The system which generated this result transmitted reference range: 0.0 - 10.0 /100 WBCs. The reference range was not used to interpret this result as normal/abnormal. NRBC x10^3 (test code = 2650403202) <0.01 See_Comment [Automated messa ge] The system which generated this result transmitted reference range: 10*3/?L. The reference range was not used to interpret this result as normal/abnormal. GRAN MAT (NEUT) % (test code = 770-8) 70.1 % IMM GRAN % (test code = 3181563937) 1.50 % LYMPH % (test code = 736-9) 18.8 % MONO % (test code = 5905-5) 7.8 % EOS % (test code = 713-8) 1.4 % BASO % (test code = 706-2) 0.4 % GRAN MAT x10^3(ANC) (test code = 1063595227) 8.11 10*3/uL 1.99-6.95 H IMM GRAN x10^3 (test code = 4460976245) 0.17 10*3/uL 0.00-0.06 H LYMPH x10^3 (test code = 731-0) 2.18 10*3/uL 1.09-3.23 MONO x10^3 (test code = 742-7) 0.90 10*3/uL 0.36-1.02 EOS x10^3 (test code = 711-2) 0.16 10*3/uL 0.06-0.53 BASO x10^3 (test code = 704-7) 0.05 10*3/uL 0.01-0.09 Lab Interpretation (test code = 93699-1) Abnormal [facility] GLUCOSE (AUTOMATED)2021-03-08 02:37:36* Test Item Value Reference Range Interpretation Comme nts POCT GLU (test code = 3611973010) 141 mg/dL 70-110 H Notified Provide r Lab Interpretation (test code = 02993-3) Abnormal [facility] GLUCOSE (AUTOMATED)2021-03-07 23:10:44* Test Item Value Reference Range Interpretation Comme nts POCT GLU (test code = 3581776251) 108 mg/dL 70-110 Lab Interpretation (test cod e = 04969-2) Normal [facility] GLUCOSE (AUTOMATED)2021-03-07 17:15:58* Test Item Value Reference Range Interpretation Comme nts POCT GLU (test code = 6414835086) 136 mg/dL 70-110 H Lab Interpretation (test cod e = 02412-7) Abnormal [facility] GLUCOSE (AUTOMATED)2021-03-07 14:40:51* Test Item Value Reference Range Interpretation Comme nts POCT GLU (test code = 3117082729) 127 mg/dL 70-110 H Lab Interpretation (test cod e = 87085-8) Abnormal [facility] GLUCOSE (AUTOMATED)2021-03-06 22:26:48* Test Item Value Reference Range Interpretation Comme nts POCT GLU (test code = 3628575215) 136 mg/dL 70-110 H Lab Interpretation (test cod e = 64617-0) Abnormal [facility] GLUCOSE (AUTOMATED)2021-03-06 18:19:30* Test Item Value Reference Range Interpretation Comme nts POCT GLU (test code = 9119643694) 115 mg/dL 70-110 H Lab Interpretation (test cod e = 43420-7) Abnormal [facility] GLUCOSE (AUTOMATED)2021-03-06 15:23:47* Test Item Value Reference Range Interpretation Comme nts POCT GLU (test code = 4932930111) 114 mg/dL 70-110 H Lab Interpretation (test cod e = 88713-4) Abnormal [facility] GLUCOSE (AUTOMATED)2021-03-06 06:27:55* Test Item Value Reference Range Interpretation Comme nts POCT GLU (test code = 6782710072) 136 mg/dL 70-110 H Lab Interpretation (test cod e = 11167-1) Abnormal [facility] GLUCOSE (AUTOMATED)2021-03-05 22:19:25* Test Item Value Reference Range Interpretation Comme nts POCT GLU (test code = 5135072607) 98 mg/dL 70-110 Lab Interpretation (test cod e = 55088-5) Normal [facility] GLUCOSE (AUTOMATED)2021-03-05 18:16:27* Test Item Value Reference Range Interpretation Comme nts POCT GLU (test code = 7955054252) 151 mg/dL 70-110 H Lab Interpretation (test cod e = 74873-9) Abnormal [facility] GLUCOSE (AUTOMATED)2021-03-05 14:28:55* Test Item Value Reference Range Interpretation Comme nts POCT GLU (test code = 2919337268) 123 mg/dL 70-110 H Lab Interpretation (test cod e = 27668-0) Abnormal [facility] WITH [id number] 12:41:13* Test Item Value Reference Range Interpretation [...] 31.7 g/dL 31.2-35.0 RDW-SD (test code = 08592-4) 44.4 fL 38.5-51.6 RDW-CV (test code = 788-0) 13.5 % 12.1-15.4 PLT (test code = 777-3) See_Comment H [Automated messa ge] The system which generated this result transmitted reference range: 150 - 328 10*3/?L. The reference range was not used to interpret this result as normal/abnormal. MPV (test code = 17525-8) 10.4 fL 9.8-13.0 NRBC/100 WBC (test code = 2110814464) See_Comment [Automated [employer] ssage] The system which generated this result transmitted reference range: 0.0 - 10.0 /100 WBCs. The reference range was not used to interpret this result as normal/abnormal. NRBC x10^3 (test code = 7181115645) <0.01 See_Comment [Automated messa ge] The system which generated this result transmitted reference range: 10*3/?L. The reference range was not used to interpret this result as normal/abnormal. GRAN MAT (NEUT) % (test code = 770-8) 70.2 % IMM GRAN % (test code = 3348199634) 3.40 % LYMPH % (test code = 736-9) 16.8 % MONO % (test code = 5905-5) 7.6 % EOS % (test code = 713-8) 1.3 % BASO % (test code = 706-2) 0.7 % GRAN MAT x10^3(ANC) (test code = 4122687888) 8.95 10*3/uL 1.99-6.95 H IMM GRAN x10^3 (test code = 0606507454) 0.43 10*3/uL 0.00-0.06 H LYMPH x10^3 (test code = 731-0) 2.14 10*3/uL 1.09-3.23 MONO x10^3 (test code = 742-7) 0.97 10*3/uL 0.36-1.02 EOS x10^3 (test code = 711-2) 0.17 10*3/uL 0.06-0.53 BASO x10^3 (test code = 704-7) 0.09 10*3/uL 0.01-0.09 Lab Interpretation (test code = 66446-3) Abnormal [facility] METABOLIC PANEL (NA, K, CL, CO2, GLUCOSE, BUN, CREATININE, CA)2021-03-05 11:23:26* Test Item Value Reference Range Interpretation Comme nts NA (test code = 9612290360) 135 mmol/L 135-145 K (test code = 3721469061) 4.2 mmol/L 3.5-5.0 CL (test code = 9329656226) 101 mmol/L 98-108 CO2 TOTAL (test code = 6262388639) 27 mmol/L 23-31 AGAP (test code = 4172813857) 2-16 BUN (test code = 6346647804) 9 mg/dL 7-23 GLUCOSE (test code = 9813347765) 135 mg/dL 70-110 H CREATININE (test code = 4996041063) 0.65 mg/dL 0.60-1.25 CALCIUM (test code = 4942935430) 8.8 mg/dL 8.6-10.6 eGFR (test code = 5427730816) mL/min/1.73m2 CATALINA (test code = CATALINA) Association [...] imaging tests). Lab Interpretation (test code = 73357-8) [facility] Test Item Value Reference Range Interpretation Comme nts MAGNESIUM (test code = 2441160492) 2.5 mg/dL 1.7-2.4 H Lab Interpretation (test cod e = 78517-9) [id number] 01:18:05* Test Item Value Reference Range Interpretation Comme nts LDH (test code = 4550505383) 753 U/L 300-600 H Lab Interpretation (test cod e = 87953-3) Abnormal [facility] GLUCOSE (AUTOMATED)2021-03-04 22:09:48* Test Item Value Reference Range Interpretation Comme nts POCT GLU (test code = 5114378158) 135 mg/dL 70-110 H Lab Interpretation (test cod e = 71234-4) Abnormal [facility] GLUCOSE (AUTOMATED)2021-03-04 17:24:54* Test Item Value Reference Range Interpretation Comme nts POCT GLU (test code = 3640253199) 160 mg/dL 70-110 H Lab Interpretation (test cod e = 72678-6) [facility] 17:19:53* Test Item Value Reference Range Interpretation Comme nts MAGNESIUM (test code = 4527909055) 2.4 mg/dL 1.7-2.4 Lab Interpretation (test cod e = 33842-0) Normal [facility] METABOLIC PANEL (NA, K, CL, CO2, GLUCOSE, BUN, CREATININE, CA)2021-03-04 17:19:52* Test Item Value Reference Range Interpretation Comme nts NA (test code = 8246409609) 136 mmol/L 135-145 K (test code = 0975125912) 4.6 mmol/L 3.5-5.0 CL (test code = 2188542054) 101 mmol/L 98-108 CO2 TOTAL (test code = 1404662552) 27 mmol/L 23-31 AGAP (test code = 2300252814) 2-16 BUN (test code = 8014123630) 8 mg/dL 7-23 GLUCOSE (test code = 6698082880) 125 mg/dL 70-110 H CREATININE (test code = 0622874018) 0.62 mg/dL 0.60-1.25 CALCIUM (test code = 8031740574) 8.8 mg/dL 8.6-10.6 eGFR (test code = 1862605660) mL/min/1.73m2 CATALINA (test code = CATALINA) Association [...] imaging tests). Lab Interpretation (test code = 58320-3) Abnormal [facility] WITH [id number] 15:00:40* Test Item Value Reference Range Interpretation [...] 31.6 g/dL 31.2-35.0 RDW-SD (test code = 33128-5) 45.4 fL 38.5-51.6 RDW-CV (test code = 788-0) 13.7 % 12.1-15.4 PLT (test code = 777-3) See_Comment H [Automated message] The system which generated this result transmitted reference range: 150 - 328 10*3/?L. The reference range was not used to interpret this result as normal/abnormal. MPV (test code = 58880-2) 10.5 fL 9.8-13.0 NRBC/100 WBC (test code = 9021945549) See_Comment [Automated message] The system which generated this result transmitted reference range: 0.0 - 10.0 /100 WBCs. The reference range was not used to interpret this result as normal/abnormal. NRBC x10^3 (test code = 6711978443) <0.01 See_Comment [Automated message] The system which generated this result transmitted reference range: 10*3/?L. The reference range was not used to interpret this result as normal/abnormal. GRAN MAT (NEUT) % (test code = 770-8) 69.9 % IMM GRAN % (test code = 0787958526) 5.20 % LYMPH % (test code = 736-9) 15.4 % MONO % (test code = 5905-5) 8.0 % EOS % (test code = 713-8) 1.0 % BASO % (test code = 706-2) 0.5 % GRAN MAT x10^3(ANC) (test code = 9539466302) 10.31 10*3/uL 1.99-6.95 H IMM GRAN x10^3 (test code = 7060647321) 0.77 10*3/uL 0.00-0.06 H LYMPH x10^3 (test [...] result as normal/abnormal. BANDS (test code = 5986338955) Increased A REACT LYMPHS (test code = 7747071000) Rare TOXIC CHANGES (test code = 803-7) Present A GIANT PLATELETS (test code = 5908-9) Present See_Comment A [Automated message] The system which generated this result transmitted reference range: (none). The reference range was not used to interpret this result as normal/abnormal. Lab Interpretation (test code = 95324-6) Abnormal [facility] GLUCOSE (AUTOMATED)2021-03-04 13:51:33* Test Item Value Reference Range Interpretation Comme [facility] POCT GLU (test code = 8965725867) 141 mg/dL 70-110 H Lab Interpretation (test cod e = 71830-1) Abnormal [facility] GLUCOSE (AUTOMATED)2021-03-03 18:21:58* Test Item Value Reference Range Interpretation Comme [facility] POCT GLU (test code = 0623900872) 190 mg/dL 70-110 H Lab Interpretation (test cod e = 93601-4) Abnormal [facility] WITH [id number] 14:30:04* Test Item Value Reference Range Interpretation [...] 33.1 g/dL 31.2-35.0 RDW-SD (test code = 29759-3) 44.2 fL 38.5-51.6 RDW-CV (test code = 788-0) 13.5 % 12.1-15.4 PLT (test code = 777-3) See_Comment H [Automated messa ge] The system which generated this result transmitted reference range: 150 - 328 10*3/?L. The reference range was not used to interpret this result as normal/abnormal. MPV (test code = 53919-0) 10.2 fL 9.8-13.0 NRBC/100 WBC (test code = 9286709811) See_Comment [Automated me ssage] The system which generated this result transmitted reference range: 0.0 - 10.0 /100 WBCs. The reference range was not used to interpret this result as normal/abnormal. NRBC x10^3 (test code = 5676720273) <0.01 See_Comment [Automated messa ge] The system which generated this result transmitted reference range: 10*3/?L. The reference range was not used to interpret this result as normal/abnormal. GRAN MAT (NEUT) % (test code = 770-8) 70.9 % IMM GRAN % (test code = 0307771869) 4.70 % LYMPH % (test code = 736-9) 13.5 % MONO % (test code = 5905-5) 9.2 % EOS % (test code = 713-8) 1.1 % BASO % (test code = 706-2) 0.6 % GRAN MAT x10^3(ANC) (test code = 4599255833) 9.90 10*3/uL 1.99-6.95 H IMM GRAN x10^3 (test code = 0579157881) 0.65 10*3/uL 0.00-0.06 H LYMPH x10^3 (test code = 731-0) 1.88 10*3/uL 1.09-3.23 MONO x10^3 (test code = 742-7) 1.28 10*3/uL 0.36-1.02 H EOS x10^3 (test code = 711-2) 0.15 10*3/uL 0.06-0.53 BASO x10^3 (test code = 704-7) 0.08 10*3/uL 0.01-0.09 BANDS (test code = 4727625949) Increased A TOXIC CHANGES (test code = 803-7) Present A Lab Interpretation (test code = 75973-2) Abnormal [facility] GLUCOSE (AUTOMATED)2021-03-03 13:45:39* Test Item Value Reference Range Interpretation Comme nts POCT GLU (test code = 9218466706) 144 mg/dL 70-110 H Lab Interpretation (test cod e = 66163-8) [facility] 13:32:13* Test Item Value Reference Range Interpretation Comme nts MAGNESIUM (test code = 4212095939) 2.3 mg/dL 1.7-2.4 Lab Interpretation (test cod e = 05315-3) [facility] (NA, K, CL, CO2, GLUCOSE, BUN, CREATININE, CA)2021-03-03 13:32:02* Test Item Value Reference Range Interpretation Comme nts NA (test code = 0679964229) 136 mmol/L 135-145 K (test code = 0333268008) 4.6 mmol/L 3.5-5.0 CL (test code = 5579526076) 104 mmol/L 98-108 CO2 TOTAL (test code = 5395851772) 24 mmol/L 23-31 AGAP (test code = 3005308358) 2-16 BUN (test code = 8453330399) 6 mg/dL 7-23 L GLUCOSE (test code = 5494991766) 134 mg/dL 70-110 H CREATININE (test code = 6184639271) 0.56 mg/dL 0.60-1.25 L CALCIUM (test code = 4700480669) 8.5 mg/dL 8.6-10.6 L eGFR (test code = 2361707716) mL/min/1.73m2 CATALINA (test code = CATALINA) Association [...] imaging tests). Lab Interpretation (test code = 84558-4) [facility] 13:31:50* Test Item Value Reference Range Interpretation Comme nts PHOSPHORUS (test code = 2072273065) 3.9 mg/dL 2.5-5.0 Lab Interpretation (test cod e = 07652-3) [facility] [id number] 06:01:53* Test Item Value Reference Range Interpretation Comme nts Blood Culture-Aerobic (test code = 36701-0) No organisms isolated No growth Previous preliminary verified result was Culture In Progress on 02/26/2021 at 0401 CDTPrevious preliminary verified result was No growth at 24 hours on 02/27/2021 at 0101 CDTPrevious preliminary verified result was No growth at 48 hours on 02/28/2021 at 010 CDTPrevious preliminary verified result was No growth at 72 hours on 03/01/2021 at 010 CDT Blood Culture-Anaerobic (test code = 03800-2) No organisms isolated No growth Previous preliminary [...] 0101 CDT Lab Interpretation (test code = 94695-9) [facility] [id number] 06:01:53* Test Item Value Reference Range Interpretation Comme nts Blood Culture-Aerobic (test code = 32388-9) No organisms isolated No growth Previous preliminary [...] 0101 CDT Blood Culture-Anaerobic (test code = 77020-3) No organisms isolated No growth Previous preliminary [...] 0101 CDT Lab Interpretation (test code = 68939-2) Normal [facility] GLUCOSE (AUTOMATED)2021-03-03 02:26:32* Test Item Value Reference Range Interpretation Comme nts POCT GLU (test code = 8464699718) 155 mg/dL 70-110 H Notified Provide r Lab Interpretation (test code = 35478-8) Abnormal [facility] GLUCOSE (AUTOMATED)2021-03-02 22:38:32* Test Item Value Reference Range Interpretation Comme nts POCT GLU (test code = 6877814161) 122 mg/dL 70-110 H Lab Interpretation (test cod e = 89691-0) Abnormal [facility] GLUCOSE (AUTOMATED)2021-03-02 17:46:25* Test Item Value Reference Range Interpretation Comme nts POCT GLU (test code = 4779802256) 125 mg/dL 70-110 H Lab Interpretation (test cod e = 49338-9) [id number] 16:40:15* Test Item Value Reference Range Interpretation Comme nts SPUTUM CULTURE (test code = 622-1) 2+ Respiratory jeff: Commensal upper respiratory microorganisms only. Gram stain (test code = 664-3) Occasional (Rare) Mononuclear cells CATALINA (test code = CATALINA) Bacterial pathogens associated with lower respiratory infections were not identified, which include Pseudomonas aeruginosa and Staphylococcus aureus (MRSA or MSSA). [facility] WITH [id number] 15:16:38* Test Item Value Reference Range Interpretation [...] 32.9 g/dL 31.2-35.0 RDW-SD (test code = 81261-0) 44.9 fL 38.5-51.6 RDW-CV (test code = 788-0) 13.5 % 12.1-15.4 PLT (test code = 777-3) See_Comment [Automated messa ge] The system which generated this result transmitted reference range: 150 - 328 10*3/?L. The reference range was not used to interpret this result as normal/abnormal. MPV (test code = 61764-0) 10.9 fL 9.8-13.0 NRBC/100 WBC (test code = 7374937915) See_Comment [Automated me ssage] The system which generated this result transmitted reference range: 0.0 - 10.0 /100 WBCs. The reference range was not used to interpret this result as normal/abnormal. NRBC x10^3 (test code = 1927035433) <0.01 See_Comment [Automated messa ge] The system which generated this result transmitted reference range: 10*3/?L. The reference range was not used to interpret this result as normal/abnormal. GRAN MAT (NEUT) % (test code = 770-8) 73.0 % IMM GRAN % (test code = 9075226639) 2.80 % LYMPH % (test code = 736-9) 12.6 % MONO % (test code = 5905-5) 9.4 % EOS % (test code = 713-8) 1.7 % BASO % (test code = 706-2) 0.5 % GRAN MAT x10^3(ANC) (test code = 5878993330) 9.28 10*3/uL 1.99-6.95 H IMM GRAN x10^3 (test code = 3482021514) 0.36 10*3/uL 0.00-0.06 H LYMPH x10^3 (test [...] result as normal/abnormal. BANDS (test code = 3088421391) Increased A DOHLE BODIES (test code = 7792-5) Present A REACT LYMPHS (test code = 1253785539) Rare TOXIC CHANGES (test code = 803-7) Present A Lab Interpretation (test code = 47311-7) Abnormal [facility] GLUCOSE (AUTOMATED)2021-03-02 13:57:34* Test Item Value Reference Range Interpretation Comme nts POCT GLU (test code = 5664802423) 136 mg/dL 70-110 H Lab Interpretation (test cod e = 66742-3) [facility] 13:38:29* Test Item Value Reference Range Interpretation Comme nts POCT GLU (test code = 0041849796) 138 mg/dL 70-110 H Lab Interpretation (test cod e = 53675-7) Abnormal [facility]. METABOLIC PANEL (87485)2021-03-02 12:01:14* Test Item Value Reference Range Interpretation Comme nts NA (test code = 8425272480) 139 mmol/L 135-145 K (test code = 9901995880) 3.2 mmol/L 3.5-5.0 L CL (test code = 3842246042) 113 mmol/L 98-108 H CO2 TOTAL (test code = 0406422664) 21 mmol/L 23-31 L AGAP (test code = 1938139857) 2-16 BUN (test code = 7473343267) 4 mg/dL 7-23 L GLUCOSE (test code = 8476763597) 102 mg/dL 70-110 CREATININE (test code = 9162558560) 0.43 mg/dL 0.60-1.25 L TOTAL BILI (test code = 5825962259) 0.6 mg/dL 0.1-1.1 CALCIUM (test code = 1569948342) 6.2 mg/dL 8.6-10.6 L T PROTEIN (test code = 7499691937) 4.4 g/dL 6.3-8.2 L ALBUMIN (test code = 2095496424) 2.0 g/dL 3.5-5.0 L ALK PHOS (test code = 8681268925) 131 U/L 34-122 H ALTv (test code = 1742-6) 23 U/L 5-50 AST(SGOT) (test code = 5963529178) 29 U/L 13-40 eGFR (test code = 7425432647) mL/min/1.73m2 CATALINA (test code = CATALINA) Association [...] imaging tests). Lab Interpretation (test code = 72263-4) Abnormal [facility] GLUCOSE (AUTOMATED)2021-03-02 04:00:42* Test Item Value Reference Range Interpretation Comme nts POCT GLU (test code = 9666884887) 186 mg/dL 70-110 H Lab Interpretation (test cod e = 10504-7) Abnormal [facility] GLUCOSE (AUTOMATED)2021-03-01 23:00:33* Test Item Value Reference Range Interpretation Comme nts POCT GLU (test code = 5104936103) 130 mg/dL 70-110 H Lab Interpretation (test cod e = 39237-6) Abnormal [facility] GLUCOSE (AUTOMATED)2021-03-01 18:02:15* Test Item Value Reference Range Interpretation Comme nts POCT GLU (test code = 3143996783) 166 mg/dL 70-110 H Lab Interpretation (test cod e = 02019-8) [facility] 11:26:40* Test Item Value Reference Range Interpretation Comme nts MAGNESIUM (test code = 1993770505) 2.4 mg/dL 1.7-2.4 Lab Interpretation (test cod e = 32346-5) [facility] (NA, K, CL, CO2, GLUCOSE, BUN, CREATININE, CA)2021-03-01 11:26:19* Test Item Value Reference Range Interpretation Comme nts NA (test code = 3984488777) 134 mmol/L 135-145 L K (test code = 9250451295) 4.0 mmol/L 3.5-5.0 CL (test code = 1017762618) 99 mmol/L 98-108 CO2 TOTAL (test code = 8330506528) 26 mmol/L 23-31 AGAP (test code = 5565516973) 2-16 BUN (test code = 4947984287) 7 mg/dL 7-23 GLUCOSE (test code = 7038014291) 161 mg/dL 70-110 H CREATININE (test code = 3907495777) 0.69 mg/dL 0.60-1.25 CALCIUM (test code = 6946448268) 8.4 mg/dL 8.6-10.6 L eGFR (test code = 0963202242) mL/min/1.73m2 CATALINA (test code = CATALINA) Association [...] imaging tests). Lab Interpretation (test code = 07806-1) [facility] 11:26:19* Test Item Value Reference Range Interpretation Comme nts PHOSPHORUS (test code = 4118043993) 3.2 mg/dL 2.5-5.0 Lab Interpretation (test cod e = 57284-3) [facility] WITH [id number] 11:16:45* Test Item Value Reference Range Interpretation [...] 32.9 g/dL 31.2-35.0 RDW-SD (test code = 71947-6) 42.1 fL 38.5-51.6 RDW-CV (test code = 788-0) 13.2 % 12.1-15.4 PLT (test code = 777-3) See_Comment H [Automated message] The system which generated this result transmitted reference range: 150 - 328 10*3/?L. The reference range was not used to interpret this result as normal/abnormal. MPV (test code = 41998-6) 10.3 fL 9.8-13.0 NRBC/100 WBC (test code = 2793611851) See_Comment [Automated message] The system which generated this result transmitted reference range: 0.0 - 10.0 /100 WBCs. The reference range was not used to interpret this result as normal/abnormal. NRBC x10^3 (test code = 5133746648) <0.01 See_Comment [Automated message] The system which generated this result transmitted reference range: 10*3/?L. The reference range was not used to interpret this result as normal/abnormal. GRAN MAT (NEUT) % (test code = 770-8) 78.5 % IMM GRAN % (test code = 5389730286) 1.60 % LYMPH % (test code = 736-9) 8.7 % MONO % (test code = 5905-5) 9.8 % EOS % (test code = 713-8) 1.0 % BASO % (test code = 706-2) 0.4 % GRAN MAT x10^3(ANC) (test code = 2408514130) 12.22 10*3/uL 1.99-6.95 H IMM GRAN x10^3 (test code = 1113546511) 0.25 10*3/uL 0.00-0.06 H LYMPH x10^3 (test code = 731-0) 1.36 10*3/uL 1.09-3.23 MONO x10^3 (test code = 742-7) 1.53 10*3/uL 0.36-1.02 H EOS x10^3 (test code = 711-2) 0.15 10*3/uL 0.06-0.53 BASO x10^3 (test code = 704-7) 0.07 10*3/uL 0.01-0.09 BANDS (test code = 6475254397) Increased A TOXIC CHANGES (test code = 803-7) Present A GIANT PLATELETS (test code = 5908-9) Present See_Comment A [Automated message] The system which generated this result transmitted reference range: (none). The reference range was not used to interpret this result as normal/abnormal. Lab Interpretation (test code = 15116-9) Abnormal [facility] GLUCOSE (AUTOMATED)2021-03-01 01:33:17* Test Item Value Reference Range Interpretation Comme nts POCT GLU (test code = 8308111694) 173 mg/dL 70-110 H Lab Interpretation (test cod e = 99330-8) Abnormal [facility] GLUCOSE (AUTOMATED)2021-02-28 22:14:15* Test Item Value Reference Range Interpretation Comme nts POCT GLU (test code = 6403994253) 136 mg/dL 70-110 H Lab Interpretation (test cod e = 61139-0) Abnormal [facility] GLUCOSE (AUTOMATED)2021-02-28 22:10:43* Test Item Value Reference Range Interpretation Comme nts POCT GLU (test code = 5526706789) 158 mg/dL 70-110 H Lab Interpretation (test cod e = 19208-5) Abnormal [facility] GLUCOSE (AUTOMATED)2021-02-28 16:49:37* Test Item Value Reference Range Interpretation Comme nts POCT GLU (test code = 5521769125) 161 mg/dL 70-110 H Lab Interpretation (test cod e = 67322-1) Abnormal [facility] WITH [id number] 13:12:42* Test Item Value Reference Range Interpretation [...] 32.4 g/dL 31.2-35.0 RDW-SD (test code = 19521-3) 42.9 fL 38.5-51.6 RDW-CV (test code = 788-0) 13.0 % 12.1-15.4 PLT (test code = 777-3) See_Comment [Automated message] The system which generated this result transmitted reference range: 150 - 328 10*3/?L. The reference range was not used to interpret this result as normal/abnormal. MPV (test code = 87849-5) 10.1 fL 9.8-13.0 NRBC/100 WBC (test code = 8421121853) See_Comment [Automated message] The system which generated this result transmitted reference range: 0.0 - 10.0 /100 WBCs. The reference range was not used to interpret this result as normal/abnormal. NRBC x10^3 (test code = 1815375761) <0.01 See_Comment [Automated message] The system which generated this result transmitted reference range: 10*3/?L. The reference range was not used to interpret this result as normal/abnormal. GRAN MAT (NEUT) % (test code = 770-8) 77.6 % IMM GRAN % (test code = 4814220258) 1.40 % LYMPH % (test code = 736-9) 9.7 % MONO % (test code = 5905-5) 10.1 % EOS % (test code = 713-8) 0.7 % BASO % (test code = 706-2) 0.5 % GRAN MAT x10^3(ANC) (test code = 4514352628) 11.63 10*3/uL 1.99-6.95 H IMM GRAN x10^3 (test code = 5648164115) 0.21 10*3/uL 0.00-0.06 H LYMPH x10^3 (test [...] result as normal/abnormal. BANDS (test code = 5771033888) Increased A TOXIC CHANGES (test code = 803-7) Present A GIANT PLATELETS (test code = 5908-9) Present See_Comment A [Automated message] The system which generated this result transmitted reference range: (none). The reference range was not used to interpret this result as normal/abnormal. Lab Interpretation (test code = 86902-7) Abnormal [facility]. METABOLIC PANEL (10669)2021-02-28 12:13:05* Test Item Value Reference Range Interpretation Comme nts NA (test code = 9901618208) 133 mmol/L 135-145 L K (test code = 7425343950) 4.2 mmol/L 3.5-5.0 CL (test code = 6204110459) 100 mmol/L 98-108 CO2 TOTAL (test code = 1277190221) 26 mmol/L 23-31 AGAP (test code = 6464617769) 2-16 BUN (test code = 6180135312) 8 mg/dL 7-23 GLUCOSE (test code = 9097625733) 143 mg/dL 70-110 H CREATININE (test code = 4798299795) 0.70 mg/dL 0.60-1.25 TOTAL BILI (test code = 5243947582) 1.4 mg/dL 0.1-1.1 H CALCIUM (test code = 0466897888) 8.5 mg/dL 8.6-10.6 L T PROTEIN (test code = 9964491993) 5.7 g/dL 6.3-8.2 L ALBUMIN (test code = 2262397212) 3.0 g/dL 3.5-5.0 L ALK PHOS (test code = 5435827255) 111 U/L 34-122 ALTv (test code = 1742-6) 16 U/L 5-50 AST(SGOT) (test code = 6975556497) 20 U/L 13-40 eGFR (test code = 6156748745) mL/min/1.73m2 CATALINA (test code = CATALINA) Association [...] imaging tests). Lab Interpretation (test code = 01060-0) Abnormal [facility] GLUCOSE (AUTOMATED)2021-02-28 02:31:48* Test Item Value Reference Range Interpretation Comme nts POCT GLU (test code = 3499410281) 206 mg/dL 70-110 H Lab Interpretation (test cod e = 97451-8) [facility] 2021-02-28 00:49:25* Test Item Value Reference Range Interpretation Comme nts Mycobacterium tuberculosis D NA (test code = 83725-5) Negative Negative Lab Interpretation (test cod e = 05856-1) Normal [facility] GLUCOSE (AUTOMATED)2021-02-27 22:30:13* Test Item Value Reference Range Interpretation Comme nts POCT GLU (test code = 8929306675) 160 mg/dL 70-110 H Lab Interpretation (test cod e = 02939-0) [facility] 2021-02-27 18:36:53* Test Item Value Reference Range Interpretation Comme nts Mycobacterium tuberculosis DNA (test code = 89721-3) Negative Negative CATALINA (test code = CATALINA) MTB PCR testing delayed due to inadequate specimen. Lab Interpretation (test code = 74747-9) Normal [facility] GLUCOSE (AUTOMATED)2021-02-27 16:47:54* Test Item Value Reference Range Interpretation Comme nts POCT GLU (test code = 3890098579) 185 mg/dL 70-110 H Lab Interpretation (test cod e = 34747-1) Abnormal [facility] GLUCOSE (AUTOMATED)2021-02-27 13:10:59* Test Item Value Reference Range Interpretation Comme nts POCT GLU (test code = 1283958611) 140 mg/dL 70-110 H Lab Interpretation (test cod e = 46111-1) Abnormal [facility] GLUCOSE (AUTOMATED)2021-02-27 11:09:43* Test Item Value Reference Range Interpretation Comme nts POCT GLU (test code = 9305204157) 120 mg/dL 70-110 H Lab Interpretation (test cod e = 63423-5) [facility] - Draw within 30 minutes prior to 3RD dose.2021-02-27 08:29:58* Test Item Value Reference Range Interpretation Comme nts VANCO TROUGH (test code = 1351620511) <5.0 10.0-20.0 L CATALINA (test code = CATALINA) Toxic Range: ?>20 ug/mL 15-20 ug/mL is recommended for severe infection or when Vancomycin TYLER is greater than or equal to 2. Lab Interpretation (test code = 29611-8) Abnormal [facility]. METABOLIC PANEL (95035)2021-02-27 08:17:18* Test Item Value Reference Range Interpretation Comme nts NA (test code = 9079718528) 132 mmol/L 135-145 L K (test code = 4002167670) 4.2 mmol/L 3.5-5.0 CL (test code = 2784283086) 99 mmol/L 98-108 CO2 TOTAL (test code = 9765556269) 24 mmol/L 23-31 AGAP (test code = 9632477151) 2-16 BUN (test code = 1534022915) 10 mg/dL 7-23 GLUCOSE (test code = 0306274706) 137 mg/dL 70-110 H CREATININE (test code = 4683786813) 0.81 mg/dL 0.60-1.25 TOTAL BILI (test code = 2797182700) 1.5 mg/dL 0.1-1.1 H CALCIUM (test code = 5145575411) 8.6 mg/dL 8.6-10.6 T PROTEIN (test code = 3684794069) 6.1 g/dL 6.3-8.2 L ALBUMIN (test code = 1942135104) 3.3 g/dL 3.5-5.0 L ALK PHOS (test code = 9662531385) 94 U/L 34-122 ALTv (test code = 1742-6) 19 U/L 5-50 AST(SGOT) (test code = 6937851538) 16 U/L 13-40 eGFR (test code = 1730539917) mL/min/1.73m2 CATALINA (test code = CATALINA) Association [...] imaging tests). Lab Interpretation (test code = 61230-1) [facility] 08:17:18* Test Item Value Reference Range Interpretation Comme nts MAGNESIUM (test code = 9289030504) 2.1 mg/dL 1.7-2.4 Lab Interpretation (test cod e = 95997-0) [facility]21[facility] 08:16:57* Test Item Value Reference Range Interpretation Comme nts PHOSPHORUS (test code = 0463005183) 2.6 mg/dL 2.5-5.0 Lab Interpretation (test cod e = 34648-4) Normal [facility] AustinCBC WITH [id number] 07:51:35* Test Item Value Reference Range Interpretation [...] 32.3 g/dL 31.2-35.0 RDW-SD (test code = 21188-6) 42.4 fL 38.5-51.6 RDW-CV (test code = 788-0) 12.8 % 12.1-15.4 PLT (test code = 777-3) See_Comment [Automated message] The system which generated this result transmitted reference range: 150 - 328 10*3/?L. The reference range was not used to interpret this result as normal/abnormal. MPV (test code = 63685-1) 10.2 fL 9.8-13.0 NRBC/100 WBC (test code = 7185910668) See_Comment [Automated message] The system which generated this result transmitted reference range: 0.0 - 10.0 /100 WBCs. The reference range was not used to interpret this result as normal/abnormal. NRBC x10^3 (test code = 8192093500) <0.01 See_Comment [Automated message] The system which generated this result transmitted reference range: 10*3/?L. The reference range was not used to interpret this result as normal/abnormal. GRAN MAT (NEUT) % (test code = 770-8) 78.1 % IMM GRAN % (test code = 6586559838) 1.70 % LYMPH % (test code = 736-9) 10.0 % MONO % (test code = 5905-5) 9.5 % EOS % (test code = 713-8) 0.4 % BASO % (test code = 706-2) 0.3 % GRAN MAT x10^3(ANC) (test code = 9255800627) 11.88 10*3/uL 1.99-6.95 H IMM GRAN x10^3 (test code = 4736649045) 0.26 10*3/uL 0.00-0.06 H LYMPH x10^3 (test code = 731-0) 1.52 10*3/uL 1.09-3.23 MONO x10^3 (test code = 742-7) 1.45 10*3/uL 0.36-1.02 H EOS x10^3 (test code = 711-2) 0.06 10*3/uL 0.06-0.53 BASO x10^3 (test code = 704-7) 0.04 10*3/uL 0.01-0.09 Lab Interpretation (test code = 62135-3) Abnormal [facility] GLUCOSE (AUTOMATED)2021-02-27 05:06:59* Test Item Value Reference Range Interpretation Comme [facility] POCT GLU (test code = 6318797905) 131 mg/dL 70-110 H Notified Provide r Lab Interpretation (test code = 01381-0) Abnormal [facility] GLUCOSE (AUTOMATED)2021-02-27 00:23:21* Test Item Value Reference Range Interpretation Comme [facility] POCT GLU (test code = 7501859614) 146 mg/dL 70-110 H Notified Provide r Lab Interpretation (test code = 75552-5) [facility]normal [facility] Austin[facility]IT[facility]IN B12, [id number] 21:40:03* Test Item Value Reference Range Interpretation Comme nts VIT B12 (test code = 8674283946) 226 pg/mL 240-930 L CATALINA (test code = CATALINA) Biotin has been reported to cause a positive bias, interpret results relative to patient's use of biotin. Lab Interpretation (test code = 92467-6) [facility]normal [facility] AustinHIV [facility]/2 AG-AB WITH [id number] 20:46:32* Test Item Value Reference Range Interpretation Comme [facility] HIV Semi-quantitative (test code = 64340-3) Negative Negative CATALINA (test code = CATALINA) Non-reactive for HIV-1 antigen and HIV-1/HIV-2 antibodies. ?No laboratory evidence of HIV infection. ?Repeat in 2-4 weeks if acute HIV infection is suspected. [facility] AustinBODY FLUID MANUAL [id number] 19:54:40* Test Item Value Reference Range Interpretation Comme nts BF SEGS% (test code = 67173-2) 85 % BF LYMPHS% (test code = 40710-2) 3 % BF MACROPHAGE% (test code = 17845-9) 10 % BF MESOS% (test code = 30543-1) 1 % BF EOS% (test code = 62041-2) 1 % BF #CELLS CNTD (test code = 7140689238) cells/u L [facility] AustinDIFF CONSULT [id number] 19:18:36 LEUKOCYTOSIS WITH ABSOLUTE NEUTROPHILIA, MONOCYTOSIS, AND EOSINOPENIA. NO INCREASE IN BLASTS IDENTIFIED. ERYTHROCYTES ARE UNREMARKABLE. MILD THROMBOCYTOSIS.[facility] AustinLACTATE [id number] 18:57:19* Test Item Value Reference Range Interpretation Comme nts LDH (test code = 3832818504) 469 U/L 300-600 Lab Interpretation (test cod e = 17729-8) Normal [facility] AustinBODY FL[facility] DIRECT [id number] 18:17:32* Test Item Value Reference Range Interpretation Comme nts BF COLOR (test code = 4196799179) Slightly Bloody BF WBC Count (test code = 5634953399) See_Comment [Automated [employer]] The system which generated this result transmitted reference range: /?L. The reference range was not used to interpret this result as normal/abnormal. BF RBC Count (test code = 8705042543) See_Comment [Automated [employer]] The system which generated this result transmitted reference range: /?L. The reference range was not used to interpret this result as normal/abnormal. CATALINA (test code = CATALINA) The reference range and other method performance specifications have not been established for this body fluid. ?The test results must be integrated into the clinical context for interpretation. [facility] AustinC-REACTIVE [id number] 18:04:06* Test Item Value Reference Range Interpretation Comme nts CRP (test code = 1003264528) 39.3 mg/dL <0.8 H Lab Interpretation (test cod e = 93980-2) [facility] 17:18:51* Test Item Value Reference Range Interpretation Comme nts Procalcitonin (test code = 8574235396) 4.49 ng/mL <0.07 H CATALINA (test code [...] lung abscess/empyema. For further information please refer to:[email or web address] Lab Interpretation (test code = 95356-4) [facility]SE (AUTOMATED)2021-02-26 16:56:13* Test Item Value Reference Range Interpretation Comme nts POCT GLU (test code = 3227502399) 156 mg/dL 70-110 H Lab Interpretation (test cod e = 14260-1) [facility]IT[facility] D, 84-[id number] 16:35:49* Test Item Value Reference Range Interpretation Comme nts VIT D 25OH (test code = 00970-6) <13 25-80 L CATALINA (test code = CATALINA) Deficiency: <20 ng/mLInsufficiency: 20-24 ng/mLOptimal: 25-80 ng/mL Lab Interpretation (test code = 43266-0) [facility] AustinFERRITIN [id number] 16:15:43* Test Item Value Reference Range Interpretation Comme nts FERRITIN (test code = 6580684571) 257.0 ng/mL 18.0-464.0 CATALINA (test code = CATALINA) Biotin has been reported to cause a negative bias, interpret results relative to patient's use of biotin. Lab Interpretation (test code = 87186-0) [facility] Austin[facility]YROID STIMULATING [id number] 16:11:43 * Test Item Value Reference Range Interpretation Comme nts TSH (test code = 7721495117) See_Comment H [Automated [employer]] The system which generated this result transmitted reference range: 0.45 - 4.70 mIU/L. The reference range was not used to interpret this result as normal/abnormal. Lab Interpretation (test code = 72344-3) [facility] AustinIRON [id number] 15:46:18* Test Item Value Reference Range Interpretation Comme nts IRON (test code = 4394040112) 31 ug/dL 50-160 L TIBC (test code = 4206702800) 239 ug/dL 250-410 L % FE SAT (test code = 3823238178) 13 % 20-50 L Lab Interpretation (test cod e = 61218-6) [facility] AustinLIPID PANEL (32532)(TOTAL CHOLESTEROL, TRIGLYCERIDES, HDL)2021-02-26 15:37:39* Test Item Value Reference Range Interpretation Comme nts CHOL (test code = 6951075299) 124 mg/dL 120-200 HDL (test code = 6991912786) 25 mg/dL >40 L HDLC RATIO (test code = 6646315382) See_Comment [Automated [employer]] The system which generated this result transmitted reference range: <=5.0. The reference range was not used to interpret this result as normal/abnormal. TRIG (test code = 2479898458) 144 mg/dL 30-170 LDL CHOL (test code = 21116-7) 70 mg/dL See_Comment [Automated [employer]] The system which generated this result transmitted reference range: <=160. The reference range was not used to interpret this result as normal/abnormal. VLDL (test code = 7962860175) 29 mg/dL 5-60 Lab Interpretation (test code = 39465-0) [facility] AustinURIC CCSF3904-29-92 15:37:19* Test Item Value Reference Range Interpretation Comme nts URIC ACID (test code = 4177120138) 5.1 mg/dL 3.6-8.0 Lab Interpretation (test cod e = 58019-7) [facility] AustinAMYLASE2021-11-04 15:36:58* Test Item Value Reference Range Interpretation Comme nts MARIA ELENA (test code = 3009267249) 38 U/L 35-110 Lab Interpretation (test cod e = 64671-9) [facility]ATED)2021-02-26 14:26:57* Test Item Value Reference Range Interpretation Comme nts POCT GLU (test code = 9793768264) 163 mg/dL 70-110 H Lab Interpretation (test cod e = 22129-2) [facility] AustinProtein Total [id number] 13:47:57* Test Item Value Reference Range Interpretation Comme nts T PROTEIN (test code = 7011090600) 6.1 g/dL 6.3-8.2 L Lab Interpretation (test cod e = 50338-4) [facility] AustinMagnesium Tugbw5931-50-62 11:57:09* Test Item Value Reference Range Interpretation Comme nts MAGNESIUM (test code = 1814436665) 1.9 mg/dL 1.7-2.4 Lab Interpretation (test cod e = 83584-1) [facility] AustinCOMP. METABOLIC PANEL (73538)2021-02-26 11:56:54* Test Item Value Reference Range Interpretation Comme nts NA (test code = 0035202228) 132 mmol/L 135-145 L K (test code = 6856378905) 4.1 mmol/L 3.5-5.0 CL (test code = 1018605400) 99 mmol/L 98-108 CO2 TOTAL (test code = 2996850679) 24 mmol/L 23-31 AGAP (test code = 9323512227) 2-16 BUN (test code = 1007865022) 10 mg/dL 7-23 GLUCOSE (test code = 6679224928) 182 mg/dL 70-110 H CREATININE (test code = 5365888661) 0.81 mg/dL 0.60-1.25 TOTAL BILI (test code = 4995021471) 1.2 mg/dL 0.1-1.1 H CALCIUM (test code = 6720696661) 8.5 mg/dL 8.6-10.6 L T PROTEIN (test code = 6064642390) 6.1 g/dL 6.3-8.2 L ALBUMIN (test code = 9878598515) 3.4 g/dL 3.5-5.0 L ALK PHOS (test code = 7464139957) 86 U/L 34-122 ALTv (test code = 1742-6) 25 U/L 5-50 AST(SGOT) (test code = 1854769318) 15 U/L 13-40 eGFR (test code = 0108809287) mL/min/1.73m2 CATALINA (test code = CATALINA) Association [...] imaging tests). Lab Interpretation (test code = 56473-4) [facility] AustinTROPONIN [id number] 11:51:29* Test Item Value Reference Range Interpretation Comments TROPONIN I (test code = 6569278790) 0.001 ng/mL See_Comment [Automated message] The system [...] of biotin. Lab Interpretation (test code = 95052-9) [facility] AustinN-TERMINAL [id number] 11:48:52* Test Item Value Reference Range Interpretation Comme nts NT-proBNP (test code = 2623304525) 61 pg/mL See_Comment [Automated message] The system which generated this result transmitted reference range: <=125. The reference range was not used to interpret this result as normal/abnormal. CATALINA (test code = CATALINA) Biotin has been reported to cause a negative bias, interpret results relative to patient's use of biotin. Lab Interpretation (test code = 23924-5) Normal [facility] with Tamndvadkcli5844-14-38 11:08:26* Test Item Value Reference Range Interpretation [...] 33.2 g/dL 31.2-35.0 RDW-SD (test code = 99970-6) 40.2 fL 38.5-51.6 RDW-CV (test code = 788-0) 12.7 % 12.1-15.4 PLT (test code = 777-3) See_Comment H [Automated message] The system which generated this result transmitted reference range: 150 - 328 10*3/?L. The reference range was not used to interpret this result as normal/abnormal. MPV (test code = 26168-2) 10.2 fL 9.8-13.0 NRBC/100 WBC (test code = 2023519935) See_Comment [Automated message] The system which generated this result transmitted reference range: 0.0 - 10.0 /100 WBCs. The reference range was not used to interpret this result as normal/abnormal. NRBC x10^3 (test code = 3802934449) <0.01 See_Comment [Automated message] The system which generated this result transmitted reference range: 10*3/?L. The reference range was not used to interpret this result as normal/abnormal. GRAN MAT (NEUT) % (test code = 770-8) 79.1 % IMM GRAN % (test code = 8828131270) 0.60 % LYMPH % (test code = 736-9) 10.0 % MONO % (test code = 5905-5) 9.6 % EOS % (test code = 713-8) 0.3 % BASO % (test code = 706-2) 0.4 % GRAN MAT x10^3(ANC) (test code = 0028382469) 11.11 10*3/uL 1.99-6.95 H IMM GRAN x10^3 (test code = 5455216074) 0.09 10*3/uL 0.00-0.06 H LYMPH x10^3 (test code = 731-0) 1.40 10*3/uL 1.09-3.23 MONO x10^3 (test code = 742-7) 1.35 10*3/uL 0.36-1.02 H EOS x10^3 (test code = 711-2) 0.04 10*3/uL 0.06-0.53 L BASO x10^3 (test code = 704-7) 0.06 10*3/uL 0.01-0.09 Lab Interpretation (test code = 32393-5) Abnormal [facility] VENOUS BLOOD [id number] 06:40:24 * Test Item Value Reference Range Interpretation Comme nts PH (test code = 5884306645) 7.32-7.42 PCO2 MICHELLE (test code = 9909528503) See_Comment L [Automated messa ge] The system which generated this result transmitted reference range: 41 - 51 mmHg. The reference range was not used to interpret this result as normal/abnormal. PO2 MICHELLE (test code = 9873676991) See_Comment H [Automated messa ge] The system which generated this result transmitted reference range: 25 - 40 mmHg. The reference range was not used to interpret this result as normal/abnormal. HCO3 MICHELLE (test code = 2179709466) See_Comment [Automated messa ge] The system which generated this result transmitted reference range: 24 - 28 mEq/L. The reference range was not used to interpret this result as normal/abnormal. AC VBE(BEAKER) (test code = 1493228269) mEq/L Lab Interpretation (test code = 50990-4) [facility] AustinTROPONIN [id number] 05:46:11* Test Item Value Reference Range Interpretation Comments TROPONIN I (test code = 7908662049) 0.003 ng/mL See_Comment [Automated message] The system [...] of biotin. Lab Interpretation (test code = 69878-1) [facility] AustinLAMSATE LFJQPBDLGUVPT2537-14-81 05:33:54* Test Item Value Reference Range Interpretation Comme nts LDH (test code = 9184436752) 427 U/L 300-600 Lab Interpretation (test cod e = 98470-8) Normal [facility] AustinSEDIMENTATION [id number] 05:31:01* Test Item Value Reference Range Interpretation Comme nts ESR (test code = 3090344536) See_Comment [Automated [employer] ge] The system which generated this result transmitted reference range: 0 - 10 mm/HR. The reference range was not used to interpret this result as normal/abnormal. Lab Interpretation (test code = 51827-9) [facility] Whole Ulbin2370-95-71 05:09:42* Test Item Value Reference Range Interpretation Comme nts LACTIC ACID (test code = 4264878782) 1.41 mmol/L 0.50-2.20 Lab Interpretation (test cod e = 46160-3) [facility] AustinPOMS GLUCOSE (AUTOMATED)2021-02-26 04:56:49* Test Item Value Reference Range Interpretation Comme nts POCT GLU (test code = 8543858905) 146 mg/dL 70-110 H Lab Interpretation (test cod e = 97669-1) [facility] AustinGLYCOSYLATED HEMOGLOBIN (A1C)2021-02-26 04:38:39* Test Item Value Reference Range Interpretation Comme nts HGB A1C (test code = 4548-4) 6.8 % 4.0-5.7 H CATALINA (test code = CATALINA) Reference RangesNormal: <5.7%Prediabetes: 5.7 - 6.4%Diabetes: > 6.5% Lab Interpretation (test code = 45576-6) [facility] AustinPhosphorus Xyxlf9872-62-67 02:43:30* Test Item Value Reference Range Interpretation Comme nts PHOSPHORUS (test code = 5452527275) 3.2 mg/dL 2.5-5.0 Lab Interpretation (test cod e = 40204-1) [facility] AustinTROPONIN [id number] 17:37:48* Test Item Value Reference Range Interpretation Comments TROPONIN I (test code = 5359199222) 0.001 ng/mL See_Comment [Automated message] The system [...] of biotin. Lab Interpretation (test code = 21787-5) [facility] AustinETHANOL2021-11-03 17:36:29* Test Item Value Reference Range Interpretation Comme nts ALCOHOL (test code = 4316471963) <10 mg/dL CATALINA (test code = CATALINA) <10 Myyrveni17-156 Toxic>100 Depression of PARARESCUE MANAGER>400 Fatalities Reported [facility] AustinACETAMINOPHEN2021-11-03 17:36:29* Test Item Value Reference Range Interpretation Comme nts ACETAMINOP (test code = 4672029529) <10.0 10.0-30.0 L CATALINA (test code = CATALINA) Toxic: Greater stuart n 200 ug/mL @ 4 hour post ingestion or greater than 50 ug/mL @ 12 hour post ingestion Lab Interpretation (test code = 32761-1) [facility] AustinN-TERMINAL [id number] 17:27:26* Test Item Value Reference Range Interpretation Comme nts NT-proBNP (test code = 8105592910) 66 pg/mL See_Comment [Automated message] The system which generated this result transmitted reference range: <=125. The reference range was not used to interpret this result as normal/abnormal. CATALINA (test code = CATALINA) Biotin has been reported to cause a negative bias, interpret results relative to patient's use of biotin. Lab Interpretation (test code = 62087-8) [facility] AustinCOM. METABOLIC PANEL (38993)2021-02-25 17:26:45* Test Item Value Reference Range Interpretation Comme nts NA (test code = 5198850985) 135 mmol/L 135-145 K (test code = 3397026988) 4.3 mmol/L 3.5-5.0 CL (test code = 4263646893) 100 mmol/L 98-108 CO2 TOTAL (test code = 7254365231) 23 mmol/L 23-31 AGAP (test code = 2713068713) 2-16 BUN (test code = 1180052758) 9 mg/dL 7-23 GLUCOSE (test code = 9240473427) 147 mg/dL 70-110 H CREATININE (test code = 9006343151) 0.72 mg/dL 0.60-1.25 TOTAL BILI (test code = 3543578255) 1.2 mg/dL 0.1-1.1 H CALCIUM (test code = 6579231204) 9.2 mg/dL 8.6-10.6 T PROTEIN (test code = 0242153338) 7.3 g/dL 6.3-8.2 ALBUMIN (test code = 9285446227) 4.4 g/dL 3.5-5.0 ALK PHOS (test code = 9597867764) 90 U/L 34-122 ALTv (test code = 1742-6) 40 U/L 5-50 AST(SGOT) (test code = 3956124385) 28 U/L 13-40 eGFR (test code = 2133563372) mL/min/1.73m2 CATALINA (test code = CATALINA) Association [...] imaging tests). Lab Interpretation (test code = 58048-9) Abnormal [facility] TmwwqyTQHVFQQLDP2417-98-12 17:26:45* Test Item Value Reference Range Interpretation Comme nts SALICYLATE (test code = 9393667412) 16 mg/L CATALINA (test code = CATALINA) Therapeutic Range: ? Analgesic and Antipyretic Use ? 20-100 mg/L ? ? Anti-Inflammatory Use ? 100-250 mg/L Toxic Range: ? Greater than 300 mg/L [facility] AustinLIPASE2021-11-03 17:26:30* Test Item Value Reference Range Interpretation Comme [facility] LIPASE (test code = 3628209265) 59 U/L 0-220 Lab Interpretation (test cod e = 26786-2) Normal [facility] AustinACTIVATED PARTIAL THRMPLAS [id number] 17:23:47* Test Item Value Reference Range Interpretation Comme [facility] APTT Patient (test code = 3173-2) See_Comment [Automated message] The system which generated this result transmitted reference range: 23 - 38 Seconds. The reference range was not used to interpret this result as normal/abnormal. CATALINA (test code = CATALINA) The [facility] patient population mean normal value for aPTT is 30 seconds. Lab Interpretation (test code = 03550-8) Normal [facility] AustinPROTHROMBIN TIME / [id number] 17:21:48* Test Item Value Reference Range Interpretation Comme [facility] PROTIME PATIENT (test code = 5964-2) See_Comment [Automated messa ge] The system which generated this result transmitted reference range: 12.0 - 14.7 Seconds. The reference range was not used to interpret this result as normal/abnormal. INR (test code = 6301-6) Normal INR <1.1; Warfarin Therapeutic range 2.0 to 3.0 or 2.5 to 3.5, depending upon the indications. Lab Interpretation (test code = 85678-8) Normal [facility] AustinAC PANEL 21 + LACTIC [id number] 16:45:09* Test Item Value Reference Range Interpretation Comme [facility] PH (test code = 1763662034) 7.32-7.42 PCO2 MICHELLE (test code = 7846450080) See_Comment L [Automated messa ge] The system which generated this result transmitted reference range: 41 - 51 mmHg. The reference range was not used to interpret this result as normal/abnormal. PO2 MICHELLE (test code = 2074284964) See_Comment [Automated messa ge] The system which generated this result transmitted reference range: 25 - 40 mmHg. The reference range was not used to interpret this result as normal/abnormal. HCO3 MICHELLE (test code = 5828877989) See_Comment [Automated messa ge] The system which generated this result transmitted reference range: 24 - 28 mEq/L. The reference range was not used to interpret this result as normal/abnormal. AC VBE(BEAKER) (test code = 9894779479) mEq/L THB MICHELLE (test code = 0604796428) 14.9 g/dL 13.5-18.0 %O2HB MICHELLE (test code = 7399399911) 62.7 % 52.0-63.0 %COHB MICHELLE (test code = 9338856463) 1.6 % 0.0-1.5 H %METHB MICHELLE (test code = 9028591038) 0.4 % 0.4-1.5 VOL%O2 MICHELLE (test code = 7780339631) 13.1 % 6.0-12.0 H NA (test code = 2666933334) 136 mmol/L 135-145 K+ (test code = 6180022733) 4.2 mmol/L 3.5-5.0 AC CA IONZ (test code = 3675941868) 4.30 mg/dL 4.50-5.30 L GLUCOSE (test code = 0150658915) 152 mg/dL 70-110 H LACTIC ACID (test code = 9859259244) 2.02 mmol/L 0.50-2.20 Lab Interpretation (test code = 23098-2) Abnormal [facility] WITH [id number] 16:43:42* Test Item Value Reference Range Interpretation [...] 33.6 g/dL 31.2-35.0 RDW-SD (test code = 85770-3) 38.5 fL 38.5-51.6 RDW-CV (test code = 788-0) 12.2 % 12.1-15.4 PLT (test code = 777-3) See_Comment H [Automated messa ge] The system which generated this result transmitted reference range: 150 - 328 10*3/?L. The reference range was not used to interpret this result as normal/abnormal. MPV (test code = 33755-5) 10.0 fL 9.8-13.0 NRBC/100 WBC (test code = 5567204589) See_Comment [Automated Grant[employer]ler ssage] The system which generated this result transmitted reference range: 0.0 - 10.0 /100 WBCs. The reference range was not used to interpret this result as normal/abnormal. NRBC x10^3 (test code = 0484426392) <0.01 See_Comment [Automated messa ge] The system which generated this result transmitted reference range: 10*3/?L. The reference range was not used to interpret this result as normal/abnormal. GRAN MAT (NEUT) % (test code = 770-8) 75.9 % IMM GRAN % (test code = 8061163345) 0.50 % LYMPH % (test code = 736-9) 11.6 % MONO % (test code = 5905-5) 11.6 % EOS % (test code = 713-8) 0.1 % BASO % (test code = 706-2) 0.3 % GRAN MAT x10^3(ANC) (test code = 9127829959) 8.99 10*3/uL 1.99-6.95 H IMM GRAN x10^3 (test code = 2668203947) 0.06 10*3/uL 0.00-0.06 LYMPH x10^3 (test code = 731-0) 1.38 10*3/uL 1.09-3.23 MONO x10^3 (test code = 742-7) 1.38 10*3/uL 0.36-1.02 H EOS x10^3 (test code = 711-2) <0.03 0.06-0.53 L BASO x10^3 (test code = 704-7) 0.04 10*3/uL 0.01-0.09 Lab Interpretation (test code = 54737-8) [facility] AustinCT ABDOMEN PELVIS W VJJVPPZJ2581-45-03 23:44:31Impression: No acute abdominal or pelvic pathology. [...] right inguinal hernia.Normal appendix.RL 460End of report. [facility] (NA, K, CL, CO2, GLUCOSE, BUN, CREATININE, CA)2020-06-19 22:32:00* Test Item Value Reference Range Interpretation Comme nts NA (test code = 1454960218) 141 mmol/L 135-145 K (test code = 7026535956) 3.9 mmol/L 3.5-5 CL (test code = 6013579112) 104 mmol/L 98-108 CO2 TOTAL (test code = 3101376253) 29 mmol/L 23-31 AGAP (test code = 7337004925) 2-16 BUN (test code = 5343289582) 14 mg/dL 7-23 GLUCOSE (test code = 3445275271) 115 mg/dL 70-110 H CREATININE (test code = 0098931988) 0.73 mg/dL 0.6-1.25 CALCIUM (test code = 9354944172) 9.4 mg/dL 8.6-10.6 eGFR Calculation (Non-) (test code = 6211551187) mL/min/1.73m2 eGFR Calculation () (test code = 8559174406) mL/min/1.73m2 CATALINA (test code = CATALINA) Association [...] imaging tests). Lab Interpretation (test code = 12866-6) [facility] AustinCOVID-19 (ID NOW RAPID TESTING)2020-06-19 22:30:00* Test Item Value Reference Range Interpretation Comme nts SARS-CoV-2 Rapid ID NOW (test code = 77095-7) Not Detected Not Detected CATALINA (test code = CATALINA) ID NOW COVID-19 As say is an isothermal nucleic acid amplification test intended for the qualitative detection of nucleic acid from SARS-CoV-2 viral RNA in nasopharyngeal (OEM SALES MANAGER) specimens. It is used under Emergency Use [...] clinically indicated. Lab Interpretation (test code = 34679-7) Normal [facility] AustinUrinalysis2021-02-25 22:24:00* Test Item Value Reference Range Interpretation Comme nts APPEARANCE (test code = 9662538500) Clear Clear COLOR (test code = 0578674811) Straw Yellow A PH (test code = 3661273873) 4.8-8.0 SP GRAVITY (test code = 4083721248) 1.003-1.030 GLU U QUAL (test code = 2055130158) Normal Normal BLOOD (test code = 9934108197) Negative Negative KETONES (test code = 8352934589) Negative Negative PROTEIN (test code = 2887-8) Negative Negative UROBILIN (test code = 8329314746) Normal Normal BILIRUBIN (test code = 7255023763) Negative Negative NITRITE (test code = 2146906970) Negative Negative LEUK DESIREE (test code = 7866593444) Negative Negative RBC/HPF (test code = 7749492609) <1 See_Comment [Automated messa ge] The system which generated this result transmitted reference range: 0 - 3 HPF. The reference range was not used to interpret this result as normal/abnormal. WBC/HPF (test code = 1024156461) <1 See_Comment [Automated messa ge] The system which generated this result transmitted reference range: 0 - 5 HPF. The reference range was not used to interpret this result as normal/abnormal. BACTERIA (test code = 4514024185) Negative Negative SQ EPITH (test code = 5703484506) <1 HPF Lab Interpretation (test code = 16062-4) [facility]normal [facility] AustinCBC with Htwngtsqgxvl1245-66-54 22:17:00* Test Item Value Reference Range Interpretation [...] 33.1 g/dL 31.2-35 RDW-SD (test code = 56556-6) 42.1 fL 38.5-51.6 RDW-CV (test code = 788-0) 12.7 % 12.1-15.4 PLT (test code = 777-3) See_Comment [Automated messa ge] The system which generated this result transmitted reference range: 150 - 328 10*3/?L. The reference range was not used to interpret this result as normal/abnormal. MPV (test code = 99781-9) 10.3 fL 9.8-13 NRBC/100 WBC (test code = 3490707985) See_Comment [Automated me ssage] The system which generated this result transmitted reference range: 0.0 - 10.0 /100 WBCs. The reference range was not used to interpret this result as normal/abnormal. NRBC x10^3 (test code = 8661810340) <0.01 See_Comment [Automated me ssage] The system which generated this result transmitted reference range: 10*3/?L. The reference range was not used to interpret this result as normal/abnormal. GRAN MAT (NEUT) % (test code = 770-8) 65.3 % IMM GRAN % (test code = 1357423928) 0.30 % LYMPH % (test code = 736-9) 26.1 % MONO % (test code = 5905-5) 6.7 % EOS % (test code = 713-8) 1.0 % BASO % (test code = 706-2) 0.6 % GRAN MAT x10^3(ANC) (test code = 5092941464) 4.11 10*3/uL 1.99-6.95 IMM GRAN x10^3 (test code = 8281725366) <0.03 0-0.06 LYMPH x10^3 (test code = 731-0) 1.64 10*3/uL 1.09-3.23 MONO x10^3 (test code = 742-7) 0.42 10*3/uL 0.36-1.02 EOS x10^3 (test code = 711-2) 0.06 10*3/uL 0.06-0.53 BASO x10^3 (test code = 704-7) 0.04 10*3/uL 0.01-0.09 [facility] Notes Date/Time Note Provider Source 2024-05-08 20:44:11 [...] adult friend, in possession of all belongings. IE [facility] Lc Apodaca RN [facility] 2024-05-08 20:27:35 DC hold, pending registration [facility] 2024-05-08 20:05:00 STEPHANIE Freeman at bedside [facility] 2024-05-08 19:33:04 Ping Hornerdallas Sparks is a 33 year old male with [...] E/U, in NAD. Call rogers within reach. [facility] 2024-05-08 19:12:07 Ping Rosales Jr. is [...] RR even and unlabored. Pt AAOx4. NAD. IE [facility] Luzma Garcia RN [facility]
[2024-07-15] MEDS ORDERED: DIPHENHYDRAMINE 50 MG/ML VIAL ONE (21:23)
[2024-07-15] MEDS ORDERED: NA CHLORIDE 0.9% 2,000 ML ONE (21:24)
[2024-07-15 21:39] LABS: Absolute Basophils 0.1 K/uL (0-0.5); Absolute Eosinophils 0.2 K/uL (0-0.5); Absolute Lymphocytes (CBC) 3.8 K/uL (0.7-4.9); Absolute Monocytes 0.6 K/uL (0.1-1.3); Absolute Neutrophil 2.6 K/uL (1.8-8.0); Basophils % 0.8 % (0-1.3); Eosinophils % 3.1 % (0-4.4); Hematocrit 44.6 % (39.6-49.0); Lymphocytes % 52.7 % (15.3-44.8); MCH 29.7 pg (27.0-35.0); MCHC 33.5 g/dL (32.0-36.0); MCV 88.5 fL (80-100); MPV 8.7 fL (7.6-11.3); Monocytes % 8.2 % (3.3-12.3); Neutrophils % 35.2 % (41.7-73.7); Nucleated Red Blood Cells % 0.1 % (0-0); Platelets 267 thou/uL (152-406); RBC Red Blood Cell Count 5.04 M/uL (4.33-5.43); Red Cell Distribution Width 13.1 % (12.1-15.2)
[2024-07-15 21:40] LABS: PT Prothrombin Time 10.7 SECONDS (10-13.0); Protime INR 0.94
[2024-07-15 22:08] LABS: ALT/SGPT 25 U/L (16-61); Albumin 3.6 g/dL (3.4-5.0); Albumin/Globulin Ratio 0.9 (1.1-1.8); Alkaline Phosphatase 67 U/L (45-117); Anion Gap 9.2 mEq/L (5.0-15.0); BUN Blood Urea Nitrogen 12 mg/dL (7-18); Bicarbonate 26 mEq/L (21-32); Bilirubin Total 0.3 mg/dL (0.2-1.0); Globulin 4.1 g/dL (2.3-3.5); Glomerular Filtration Rate 89 ml/min (=/>90); Glucose Level 332 mg/dL (74-106); Potassium 4.2 mEq/L (3.5-5.1); Protein, Total 7.7 g/dL (6.4-8.2); Sodium Level 135 mEq/L (136-145)
[2024-07-15 22:09] LABS: AST/SGOT < 10 U/L (15-37); Bilirubin Direct < 0.2 mg/dL (0-0.2); Bilirubin Indirect, Calculated 0.1 mg/dL (0.2-0.8)
[2024-07-15 22:20] LABS: Band Neutrophils 2 % (0-1); Differential Total Cells Count 100; Eosinophils 2 % (0-3); Lymphocytes 65 % (15-42); Monocytes 4 % (0-10); Segmented Neutrophils 26 % (40-80)
[2024-07-15 22:21] LABS: Blood Morphology Comment NOT SEEN (NOT SEEN); Platelet Estimate ADEQ
--- NOTE | 2024-07-16 06:36 | ER ---
Nurse's Notes [facility] Name: Kartik Swartz Jr Age: 34 yrs Sex: Male : 1990 Arrival Date: 07/15/2024 Time: 20:57 Bed 19 Private MD: Diagnosis: Acute cannabis intoxication, agitation requiring sedation protocol Presentation: 07/15 20:59 Chief complaint: EMS states: toned out for psych issues, pt was acting erratic, vc1 admitted to eating edibles. 20:59 Coronavirus screen: Client denies travel out of the [place] in the last 14 days. At this vc1 time, the client does not indicate any symptoms associated with coronavirus-19. Ebola Screen: Patient negative for fever greater than or equal to 101.5 degrees Fahrenheit, and additional compatible Ebola Virus Disease symptoms Patient denies exposure to infectious person. Patient denies travel to an Ebola-affected area in the 21 days before illness onset. No symptoms or risks identified at this time. Initial Sepsis Screen: Does the patient meet any 2 criteria? HR > 90 bpm. No. Patient's initial sepsis screen is negative. Does the patient have a suspected source of infection? No. Patient's initial sepsis screen is negative. Risk Assessment: Do you want to hurt yourself or someone else? Patient reports no desire to harm self or others. Onset of symptoms was July 15, 2024. Care prior to arrival: None. Activity prior to arrival: combative. Mechanism of Injury: No Mechanism of Injury. Transition of care: patient was not received from another setting of care. 20:59 Method Of Arrival: EMS: [facility] vc1 20:59 Acuity: JENNIFER 3 vc1 Historical: - Allergies: 21:55 ROBITUSSIN; vc1 21:55 Tylenol-Codeine #3; vc1 - PMHx: 21:55 Diabetes - NIDDM; Hypertension; Pancreatitis; Schizophrenia; vc1 - PSHx: 21:55 hernia repair; vc1 - Immunization history:: Adult Immunizations unknown. - Infectious Disease History:: Denies. - Social history:: Smoking status: unknown. - Family history:: not pertinent. Screenin:00 [facility] ED Fall Risk Assessment (Adult) History of falling in the last 3 months, vc1 including since admission No falls in past 3 months (0 pts) Confusion or Disorientation Yes (5 pts) Intoxicated or Sedated Yes (3 pts) Impaired Gait Yes (1 pt) Mobility Assist Device Used No (0 pt) Altered Elimination No (0 pt) Score/Fall Risk Level 3 or more points = High Risk Oriented to surroundings, Maintained a safe environment, Educated pt \\T\\ family on fall prevention, incl call for assistance when getting out of bed, Hourly rounding (assess needs \\T\\ fall precautionary measures) done, Offered frequent toileting (1:1 observation), Remained with patient while ambulating. Abuse screen: Denies threats or abuse. Nutritional screening: No deficits noted. Tuberculosis screening: No symptoms or risk factors identified. Assessment: 21:30 Reassessment: Police officers left. Stated to call them if the patient gets back up and kj2 they will come back out. General:. 22:00 Reassessment: Patient appears in no apparent distress at this time. Patient and/or kj2 family updated on plan of care and expected duration. Pain level reassessed. patient eyes closed, resting comfortably, easily aroused to call of name. 22:15 General: Appears in no apparent distress. comfortable, Behavior is calm. Pain: Unable jb4 to use pain scale. FLACC scale score is 0 out of 10. Neuro: Level of Consciousness is lethargic, Oriented to person, place, time. Cardiovascular: Patient's skin is warm and dry. Respiratory: Airway is patent Respiratory effort is even, unlabored, Respiratory pattern is regular, symmetrical. Derm: Skin is intact, Skin is dry, Skin is normal, Skin temperature is warm. 07/16 00:10 Reassessment: Pt resting in bed with eyes closed, respirations are even and unlabored jb4 with no s/s of pain or distress noted. 01:00 Reassessment: Patient appears in no apparent distress at this time. No changes from jb4 previously documented assessment. Patient and/or family updated on plan of care and expected duration. Pain level reassessed. 02:00 Reassessment: Patient appears in no apparent distress at this time. No changes from jb4 previously documented assessment. Patient and/or family updated on plan of care and expected duration. Pain level reassessed. 03:41 Reassessment: Patient appears in no apparent distress at this time. ay 04:40 Reassessment: Patient appears in no apparent distress at this time. ay 06:32 Reassessment: Patient appears in no apparent distress at this time. ay Psych: 07/15 21:00 [place] Suicide Severity Screening: In the past month, have you wished you were kj2 or wished you could go to sleep and not wake up? Patient responds "No." "In the past month, have you actually had any thoughts of killing yourself?" Patient responds "no." "In your lifetime, have you ever done anything, started to do anything, or prepared to do anything to end your life?" Patient responds "no.". Subjective: Patient's mood is irritable, Delusions are denied, Hallucinations are denied Having thoughts of neither suicidal or homicidal. Objective: Patient is challenging, Speech is soft. Interventions: Searched person for dangerous items. Safety Checks: patient close to nurse station. patient verbalizes he ate marijuana gummies. Commitment: N/A. Vital Signs: 21:20 BP 106 / 70; Pulse 109; Resp 22; Pulse Ox 92% on R/A; kj2 21:40 BP 103 / 71; Pulse 106; Resp 20; Pulse Ox 95% on 3 lpm NC; kj2 22:11 BP 93 / 64; Pulse 104; Resp 20; Pulse Ox 96% on 3 lpm NC; kj2 24 00:11 BP 100 / 72; Pulse 80; Resp 18; Pulse Ox 98% on 3 lpm NC; jb4 02:00 BP 121 / 62; Pulse 91; Resp 24; Pulse Ox 100% on 3 lpm NC; jb4 03:00 BP 106 / 68; Pulse 89; Resp 21; Pulse Ox 98% on 3 lpm NC; ay 04:00 BP 108 / 64; Pulse 88; Resp 18; Pulse Ox 97% on 3 lpm NC; ay 05:00 BP 101 / 65; Pulse 84; Resp 20; Pulse Ox 98% on 3 lpm NC; ay 05:45 BP 106 / 62; Pulse 84; Resp 19; Pulse Ox 99% on R/A; ay [place] Coma Score: 03:24 Eye Response: spontaneous(4). Motor Response: obeys commands(6). Verbal Response: sp4 confused(4). Total: 14. ED Course: 07/15 20:58 Patient arrived in ED. kmf 20:58 Michael Peck MD is Attending Physician. sp4 21:00 Arm band placed on right wrist. vc1 21:00 Patient has correct armband on for positive identification. Bed in low position. Side vc1 rails up X2. Provided Education on: safety. wire coater on. Pulse ox on. NIBP on. 21:20 Angelina Barriga RN is Primary Nurse. kj2 21:55 Triage completed. vc1 22:01 Acetaminophen Sent. oe 22:01 Basic Metabolic Panel Sent. oe 22:01 CBC with Diff Sent. oe 22:01 Hepatic Function Sent. oe 22:15 Report given to BETSY Anaya. kj2 07/16 07:16 IV discontinued, intact, bleeding controlled, No redness/swelling at site. Pressure ay dressing applied. Administered Medications: 07/15 21:20 Drug: Geodon IM 40 mg IM once Route: IM; Site: right gluteus; kj2 22:26 Follow up: Response: No adverse reaction kj2 21:30 Drug: NS 0.9% IV 1000 ml IV at 1 bolus Per protocol; to be given as a bolus over 60 kj2 minutes Route: IV; Rate: 1 bolus; Site: right antecubital; 07/16 07:18 Follow up: IV Status: Completed infusion ay 07/15 21:30 Drug: NS 0.9% IV 1000 ml IV at 1 bolus Per protocol; to be given as a bolus over 60 kj2 minutes Route: IV; Rate: 1 bolus; Site: right antecubital; 07/16 07:18 Follow up: IV Status: Completed infusion ay 07/15 22:26 Not Given (Physician Discretion): [id number] mg IM once kj2 Medication: 21:57 VIS not applicable for this client. vc1 Outcome: 07/16 06:35 Discharge ordered by . sp4 07:16 Discharged to home ambulatory, ay 07:16 Condition: stable 07:16 Discharge instructions given to patient, Instructed on discharge instructions, follow up and referral plans. Demonstrated understanding of instructions, follow-up care, 07:19 Patient left the ED. ay Signatures: Tavares Caraballo, RN RN jb4 Levi Duran oe Brenda Morrell RN RN vc1 Michael Peck MD MD sp4 Sravani Dyson [facility] Angelina Barriga RN RN kj2 Monika Molina RN RN ay Corrections: (The following items were deleted from the chart) 07/15 21:55 21:55 Allergies: Unable to obtain; vc1 vc1 22: 22:00 Reassessment: Patient appears in no apparent distress at this time. Patient kj2 and/or family updated on plan of care and expected duration. Pain level reassessed. Patient is alert, oriented x 3, equal unlabored respirations, skin warm/dry/pink. kj2 : 22:00 Reassessment: kj2 kj2
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
[2024-07-16 07:34] VITALS: BP 106/62; O2SAT 99
--- NOTE | 2024-07-16 12:01 | EKG ---
Test Date: 2024-07-15 Test Time: 21:28:02 Electrician Manager: JESSICA MEASUREMENT RESULTS: Intervals: Rate: 110 CT: 140 QRSD: 76 QT: 306 QTc: 414 Ennice: P: 47 CT: 140 QRS: 39 T: 4 INTERPRETIVE STATEMENTS: Sinus tachycardia Nonspecific T wave abnormality Abnormal ECG Compared to ECG 06/13/2024 00:52:58 T-wave abnormality now present Sinus rhythm no longer present Myocardial infarct finding no longer present Electronically Signed On 07-16-24 11:59:21 CDT by Anton Scott
== END 2024-07-16 07:19 | disposition home or self-care (01) ==
LOC: ER 20:57
DX: F12.929 Cannabis use, unspecified with intoxication, unspecified (principal)
CPT/HCPCS: 96361; 93005; 85025; 80048; 36415; 85610; 80076; 85730; 96360; 96372; 99285; 80143; 80179; 82077; J7030; J1200

== ENCOUNTER 2024-08-18 12:10 | Emergency (ER) | payer OTHER ==
--- OUTSIDE RECORDS SUMMARY | 2024-08-18 12:19 | XMS REPORT | Continuity of Care Document ---
Author Name Unknown Address [address] [facility] [address] [place] [address] [facility] Address [address] [facility] [address] [place] [address] Care Team Providers Care Emergency Services Director Name Role Phone PCP, PATIENT DOES NOT HAVE A Primary Care Physic linden Unavailable XOCHITL FREEMAN Attending Clinician Unavailable Xochitl Freeman PA-C Attending Clinician [phone] ESSENCE LANDRY Attending Clinician Unavailable Essence Landry MD Attending Clinician [phone] Doctor Unassigned, [place] Attending Clinician U Laney Haynes LVN Attending Clinician [phone] GORGE TAVAREZ Attending Clinician Unavailable Franklin Chatman MD Attending Clinician [phone] Chaim Ji MD Attending Clinician [phone] Gorge Tavarez MD Attending Clinician [phone] XOCHITL ECHOLS Attending Clinician Unavail Nikolay Cruz Attending Clinician + [phone] ESSENCE LANDRY Admitting Clinician Unavailable Essence Landry MD Admitting Clinician [phone] GORGE TAVAREZ Admitting Clinician Unavailable Gorge Tavarez MD Admitting Clinician Payers Payer Name Policy Type Policy Number Effective Date Expirati on Date Source [facility] [id number] 00:00:00 [facility] [id number] [id number] 00:00:00 Problems Condition Name Condition Details Condition Category Status Onset Date Resolution Date Last Treatment Date Treating Clinician Comments Source Incarcerat ed right inguinal hernia Incarcerat ed right inguinal hernia Disease Active 08-13 00:00: 00 Overview: Formattin g of this note might be different from the original. Added automatic ally from request for surgery [id number] [facility] Essential hypertensi on Essential hypertensi on Disease Active 2020-04 00:00: 00 [facility] Dyslipidem ia Dyslipidem ia Disease Active 2020-04 00:00: 00 [facility] Type 2 diabetes mellitus with other specified complicati on Type 2 diabetes mellitus with other specified complicati on Disease Active 2020-04 00:00: 00 [facility] Atypical chest pain Atypical chest pain Disease Active 2020-04 00:00: 00 [facility] Tachycardi a Tachycardi a Disease Active 2020-04 00:00: 00 [facility] Acute respirator y distress Acute respirator y distress Disease Active 2020-04 00:00: 00 [facility] Obesity (BMI 30-39.9) Obesity (BMI 30-39.9) Disease Active 10-30 00:00: 00 [facility] DKA (diabetic ketoacidos es) DKA (diabetic ketoacidos es) Disease Active 10-30 00:00: 00 [facility] Hyperlipid emia, unspecifie d hyperlipid emia type Hyperlipid emia, unspecifie d hyperlipid emia type Problem Active [facility] Type 2 diabetes mellitus with hyperglyce juan daniel Type 2 diabetes mellitus with hyperglyce juan daniel Problem Active [facility] long-term current use of insulin long-term current use of insulin Problem Active [facility] History of pancreatit is History of pancreatit is Problem Active [facility] Anxiety Anxiety Problem Active [facility] Hypertensi on, unspecifie d type Hypertensi on, unspecifie d type Problem Active [facility] Allergies, Adverse Reactions, Alerts Allergy Name Allergy Type Status Severity Reaction(s) Onset Date Inactive Date Treating Clinician Comments Source RISPERID ONE DRUG INGREDI Active Hives 08-12 00:00: 00 [facility] Risperid one Propensi ty to adverse reaction s Active Hives 08-12 00:00: 00 [facility] CODEINE DRUG INGREDI Active Hives 10-30 00:00: 00 [facility] GUAIFENE SIN DRUG INGREDI Active SOB 10-30 00:00: 00 [facility] Codeine Propensi ty to adverse reaction s Active Hives 10-30 00:00: 00 [facility] Guaifene sin Propensi ty to adverse reaction s Active Shortness of Breath 10-30 00:00: 00 [facility] Social History Social Habit Start Date Stop Date Quantity Comments Source History of tobacco use Cigarette Smoker [facility] Gender identity [facility] Cigarettes smoked current (pack per day) - Reported 2022-11-23 00:00:00 2022-11-23 00:00:00 [facility] Cigarette pack-years 2022-11-23 00:00:00 2022-11-23 00:00:00 [facility] Tobacco use and exposure 2022-11-23 00:00:00 2022-11-23 00:00:00 Smokeless tobacco non-user [facility] Alcohol intake 2022-11-23 00:00:00 2022-11-23 00:00:00 Current non-drinker of alcohol (finding) [facility] Alcoholic beverage intake 2022-11-23 00:00:00 2022-11-23 00:00:00 Current non-drinker of alcohol (finding) [facility] History of Social function 2022-09-24 00:00:00 2022-09-24 00:00:00 [facility] Exposure to SARS-CoV-2 (event) 2022-09-05 00:00:00 2022-09-15 09:47:00 Not sure [facility] Sex assigned at 1990 00:00:00 1990 00:00:00 [facility] Smoking Status Start Date Stop Date Source Ex-smoker 2022-11-23 00:00:00 2022-11-23 [facility] Current every day smoker 2020-06-19 00:00:00 [facility] Medications Ordered Medication Name Filled Medication Name Start Date Stop Date Current Medication? Ordering Clinician Indication Dosage Frequency Signature (SIG) Comments Components Source ketorolac (TORADOL) tablet 10 mg 05-09 03:15: 00 05-09 02:21 :00 No 10mg 10 mg, Oral, ONCE, 1 dose, On Tue05/08/24 at 2115, Routine [facility] methocarbam oL (ROBAXIN) tablet 1,000 mg 05-09 02:30: 00 05-09 02:21 :00 No 1000mg 1,000 mg, Oral, ONCE, 1 dose, On Tue05/08/24 at 2030, NICOLE [facility] methocarbam oL 500 mg tablet 05-08 00:00: 00 Yes [id number] 500mg Take 1 tablet by mouth 3 (three) times daily as needed for Pain (scale 4-6). [facility] naproxen (NAPROSYN) 500 mg tablet 05-08 00:00: 00 Yes [id number] 500mg Take 1 tablet by mouth in the morning and 1 tablet in the evening. Take with meals. [facility] citalopram 20 mg tablet 20 14:44: 12 Yes 20mg Take 1 tablet by mouth in the morning. [facility] metFORMIN 1,000 mg tablet 10-12 14:44: 12 Yes 1000mg Take 1 tablet by mouth in the morning and 1 tablet in the evening. Take with meals. [facility] metoprolol tartrate 50 mg tablet 10-12 14:44: 12 Yes 50mg Take 1 tablet by mouth in the morning and 1 tablet in the evening. [facility] lactated ringers IV infusion 1,000 mL 09-24 21:15: 00 Yes 1000mL at 75 mL/hr, 1,000 mL, IV Infusion, CONTINUOUS , Starting on Tue09/24/22 at 1615, Until Discontinu ed, Routine, PACU [facility] FENTanyl PF (SUBLIMAZE (PF)) injection 25 mcg 09-24 21:03: 56 Yes 25ug 25 mcg, Slow IV Push, Q5MIN PRN, 4 doses, Starting on Tue09/24/22 at 1603, Until Discontinu ed, Routine, Pain (scale 4-6), PACU [facility] ondansetron (ZOFRAN (PF)) injection 4 mg 09-24 21:03: 56 Yes 4mg 4 mg, Slow IV Push, PRN, 1 dose, Starting on Tue09/24/22 at 1603, Until Discontinu ed, Routine, Nausea and Vomiting (N/V), PACU [facility] sodium chloride 0.9 % irrigation solution 09-24 18:06: 00 09-24 21:05 :01 No PRN, Starting on Tue09/24/22 at 1306, Until Tue09/24/22 at 1605, Intra-op [facility] bupivacaine (preserv free) (SENSORCAIN E MPF) 0.25 % (2.5 mg/mL) 30 mL, BUPivacaine liposome (PF) (EXPAREL (PF)) 1.3 % (13.3 mg/mL) 20 mg, NaCl 0.9% (NS) 50 mL 09-24 18:06: 00 09-24 21:05 :01 No PRN, Starting on Tue09/24/22 at 1306, Intra-op [facility] citalopram 20 mg tablet 09-24 17:20: 52 Yes 20mg Take 1 tablet by mouth in the morning. [facility] metFORMIN 1,000 mg tablet 09-24 17:20: 52 Yes 1000mg Take 1 tablet by mouth in the morning and 1 tablet in the evening. Take with meals. [facility] metoprolol tartrate 50 mg tablet 09-24 17:20: 52 Yes 50mg Take 1 tablet by mouth in the morning and 1 tablet in the evening. [facility] lactated ringers IV infusion 1,000 mL 09-24 15:30: 00 09-24 15:42 :00 No 1000mL at 42 mL/hr, 1,000 mL, IV Infusion, ONCE, 1 dose, On Tue09/24/22 at 1030, Routine, DSU Pre-op [facility] acetaminoph en (TYLENOL) 325 mg Cap 09-24 00:00: 00 10-09 04:59 :00 No [id number] 650mg Take 650 mg by mouth in the morning and 650 mg at noon and 650 mg in the evening. Do all this for 14 days. [facility] celecoxib (CELEBREX) 200 mg capsule 09-24 00:00: 00 10-02 04:59 :00 No [id number] 200mg Take 1 capsule by mouth in the morning and 1 capsule in the evening. Take with meals. Do all this for 7 days. [facility] docusate 100 mg capsule 08-12 09:21: 09 08-12 00:00 :00 No 100mg Take 1 capsule by mouth in the morning. [facility] citalopram (CELEXA) 20 mg tablet 08-12 08:52: 02 Yes 20mg Take 1 tablet by mouth in the morning. [facility] metFORMIN 1,000 mg tablet 08-12 08:52: 02 Yes 1000mg Take 1 tablet by mouth in the morning and 1 tablet in the evening. Take with meals. [facility] aspirin 81 mg chewable tablet 2020-04 00:00: 00 08-12 00:00 :00 No [id number] 81mg Take 1 tablet by mouth daily with breakfast. [facility] docusate (COLACE) 100 mg capsule 2020-04 13:41: 43 Yes 100mg Take 100 mg by mouth daily. [facility] OLANZAPINE (ZYPREXA ORAL) 2020-04 10:34: 52 03-12 00:00 :00 No 20mg Take 20 mg by mouth every evening. [facility] benztropine 1 mg tablet 2020-04 10:34: 52 03-12 00:00 :00 No 1mg Take 1 mg by mouth daily. [facility] METOPROLOL SUCCINATE ORAL 2020-04 10:34: 52 03-12 00:00 :00 No 50mg Take 50 mg by mouth daily. [facility] omeprazole 10 mg capsule 2020-04 10:34: 52 03-12 00:00 :00 No 20mg Take 20 mg by mouth daily. [facility] pravastatin 20 mg tablet 2020-04 10:34: 52 03-12 00:00 :00 No 20mg Take 20 mg by mouth at bedtime. [facility] pravastatin 20 mg tablet 2020-04 00:00: 00 Yes [id number] 20mg Take 1 tablet by mouth at bedtime. [facility] OLANZapine (ZYPREXA) 20 mg tablet 2020-04 00:00: 00 Yes [id number] 20mg Take 1 tablet by mouth at bedtime. [facility] metoprolol succinate XL 50 mg 24 hr tablet 2020-04 00:00: 00 09-24 00:00 :00 No [id number] 50mg Take 1 tablet by mouth 2 (two) times daily. [facility] metformin ER 500 mg 24 hr tablet 2020-04 00:00: 00 08-12 00:00 :00 No [id number] 500mg Take 1 tablet by mouth 2 (two) times daily. [facility] benztropine 1 mg tablet 2020-04 00:00: 00 08-12 00:00 :00 No [id number] 1mg Take 1 tablet by mouth daily. [facility] omeprazole 20 mg capsule 2020-04 00:00: 00 08-12 00:00 :00 No [id number] 20mg Take 1 capsule by mouth daily. [facility] traMADoL 50 mg tablet 2020-04 00:00: 00 08-12 00:00 :00 No [id number] 50mg Take 1 tablet by mouth every 6 (six) hours as needed for Pain (scale 4-6). Indication s: acute pain [facility] acidophilus 100 million cell tablet 2020-04 00:00: 00 08-12 00:00 :00 No [id number] 1g Take 1 tablet by mouth 2 (two) times daily. [facility] amoxicillin -pot clavulanate 500 mg (AUGMENTIN) 500-125 mg tablet 2020-04 00:00: 00 04-03 05:59 :00 No [id number] 500mg Take 1 tablet by mouth 2 (two) times daily for 21 days. [facility] FENTanyl PF (SUBLIMAZE (PF)) injection 50 mcg 2020-04 23:00: 00 Yes 50ug 50 mcg, Slow IV Push, Q8HPRN, Starting on Tue03/11/21 at 1700, Until Discontinu ed, Routine, Pain (scale 7-10) [facility] alteplase (ACTIVASE) flush syringe 10 mg 2020-04 01:15: 00 03-10 00:18 :00 No 10mg 10 mg, Chest Tube, ONCE, 1 dose, On Tue03/09/21 at 1915, NICOLE [facility] alteplase (ACTIVASE) flush syringe 10 mg 2020-04- 14:30: 00 03-09 16:11 :00 No 10mg 10 mg, Chest Tube, Q24H, 3 doses, First dose on 03/07/21 at 0830, Last dose on 03/09/21 at 0830, Routine [facility] dornase kely (PULMOZYME) nebulizer solution Soln 5 mg 2020-04 23:30: 00 03-10 16:50 :35 No 5mg 5 mg, Intrapleur al, Q24H, First dose (after last modificati on) on Tue03/06/21 at 1730, Until Discontinu ed, NICOLE [facility] alteplase (ACTIVASE) flush syringe 10 mg 2020-04 23:30: 00 03-09 23:29 :00 No 10mg 10 mg, Chest Tube, Q24H, 3 doses, First dose (after last modificati on) on Tue03/06/21 at 1730, Last dose on Tue03/08/21 at 1730, NICOLE [facility] dornase kely (PULMOZYME) nebulizer solution Soln 5 mg 2020-04 14:30: 00 03-10 16:50 :35 No 5mg 5 mg, Intrapleur al, Q24H, First dose on Tue03/06/21 at 0830, Until Discontinu ed, Routine [facility] ipratropium -albuteroL (DUONEB) 0.5 mg-3 mg(2.5 mg base)/3 mL nebulizer solution 3 mL 2020-04 21:56: 33 Yes 3mL 3 mL, Inhalation , QIDPRN, Starting on Maureen 03/05/21 at 1556, Until Discontinu ed, Routine, Wheezing [facility] benzocaine- menthoL (CEPACOL SORE THROAT (DECLAN-MEN)) lozenge 1 Lozenge 2020-04 21:43: 42 Yes 1{lozen ge} 1 Lozenge, Oral, Q4HPRN, Starting on Tue03/03/21 at 1543, Until Discontinu ed, Routine, Sore throat [facility] NaCl 0.9% (NS) IV infusion 500 mL 2020-04 21:00: 00 03-03 21:12 :00 No 500mL at 100 mL/hr, IV Infusion, ONCE, 1 dose, On Tue03/03/21 at 1500, Routine [facility] traMADoL (ULTRAM) tablet 50 mg 2020-04 15:35: 18 Yes 50mg 50 mg, Oral, Q6HPRN, Starting on Tue03/03/21 at 0935, Until Discontinu ed, Routine, Pain (scale 4-6) [facility] melatonin (MELATIN) tablet 3 mg 2020-04 05:00: 00 Yes 3mg 3 mg, Oral, QHS, First dose on Tue03/02/21 at 2300, Until Discontinu ed, Routine [facility] KCL (KLOR-CON M20) tablet 40 mEq 2020-04 02:00: 00 03-03 01:59 :00 No 40meq 40 mEq, Oral, BID, 1 dose, First dose (after last reorder) on Tue03/02/21 at 2000, Routine [facility] KCL (KLOR-CON M20) tablet 40 mEq 2020-04 15:15: 00 03-02 14:22 :00 No 40meq 40 mEq, Oral, ONCE, 1 dose, On Tue03/02/21 at 0915, Routine [facility] doxycycline hyclate (Vibramycin ) capsule 100 mg 2020-04 14:45: 00 03-10 14:50 :32 No 100mg 100 mg, Oral, BID, First dose on Tue03/01/21 at 0845, Until Discontinu ed, NICOEL
Re ason for Anti-Infec tive: Empiric Therapy for Suspected Infection< br>Empiric Therapy Site: Respirator y
Durat ion of therapy: 7 days [facility] ipratropium -albuteroL (DUONEB) 0.5 mg-3 mg(2.5 mg base)/3 mL nebulizer solution 3 mL 2020-04 07:45: 00 03-05 21:56 :14 No 3mL 3 mL, Inhalation , QID, First dose (after last modificati on) on 03/01/21 at 0145, Until Discontinu ed, Routine [facility] pseudoephed rine (SUDAFED) tablet 30 mg 2020-04 17:15: 00 Yes 30mg 30 mg, Oral, Q8H, First dose on 02/28/21 at 1215, Until Discontinu ed, Routine [facility] acetaminoph en (TYLENOL) tablet 1,000 mg 2020-04 17:12: 29 Yes 1000mg 1,000 mg, Oral, Q6HPRN, Starting on 02/28/21 at 1212, Until Discontinu ed, Routine, Pain (scale 1-3), Temp > 38.5 C [facility] sodium chloride 7% (HYPER-WAYNE) nebulizer solution 4 mL 2020-04 14:45: 00 02-28 16:05 :00 No 4mL 4 mL, Inhalation , ONCE, 1 dose, On 02/28/21 at 0945, Routine [facility] benzonatate (TESSALON PERLES) capsule 100 mg 2020-04 10:51: 05 Yes 100mg 100 mg, Oral, Q8HPRN, Starting on 02/28/21 at 0551, Until Discontinu ed, Routine, Cough [facility] HYDROcodone -acetaminop hen (NORCO 5) 5-325 mg tablet 1 tablet 2020-04 06:09: 17 03-02 07:08 :17 No 1{tbl} 1 tablet, Oral, Q6HPRN, Starting on 02/28/21 at 0109, Until 03/02/21 at 0108, Routine, Pain (scale 4-6) [facility] sulfur hexafluorid e microsphr (LUMASON) injection 5 mL 2020-04 18:30: 00 02-26 18:45 :00 No [id number] 5mL 5 mL, Intravenou s, ONCE, 1 dose, On Maureen 02/26/21 at 1345, Routine
chemistry faculty member approving Restricted medication : IVELISSE MANRIQUE [facility] enoxaparin (LOVENOX) injection 40 mg 2020-04 14:00: 00 Yes 40mg 40 mg, Subcutaneo us, DAILY, First dose on Tue02/26/21 at 0900, Until Discontinu ed, Routine [facility] levoFLOXaci n in D5W (LEVAQUIN) [...] y
Durat ion of therapy: 7 days [facility] vancomycin 1500 mg in NS [...] y
Durat ion of therapy: 7 days [facility] ipratropium -albuteroL (DUONEB) 0.5 mg-3 mg(2.5 mg base)/3 mL nebulizer solution 3 mL 2020-04 06:15: 00 03-01 07:34 :57 No 3mL 3 mL, Inhalation , BID, First dose on Maureen 02/26/21 at 0115, Until Discontinu ed, Routine [facility] piperacilli n-tazobacta m (ZOSYN) 3.375 [...]
Durat ion of Therapy: Other (see Comments) [facility] furosemide (LASIX) injection 20 mg 2020-04 05:00: 00 02-26 04:35 :00 No 20mg 20 mg, IV Push, ONCE, 1 dose, On Maureen 02/26/21 at 0000, [facility] metoprolol (LOPRESSOR) injection 5 mg 2020-04 04:45: 00 02-26 04:04 :00 No 5mg 5 mg, Slow IV Push, ONCE, 1 dose, On Tue02/25/21 at 2345, [facility] - Lispro (HumaLOG) + Fsbg Testing 2020-04 04:15: 00 Yes Subcutaneo us, TID MEALS, First dose on Tue02/25/21 at 2315, Until Discontinu ed, Routine [facility] aspirin chewable tablet 81 mg 2020-04 04:15: 00 Yes 81mg 81 mg, Oral, QAM WITH BREAKFAST, First dose on Tue02/25/21 at 2315, Until Discontinu ed, Routine [facility] FENTanyl PF (SUBLIMAZE (PF)) injection 50 mcg 2020-04 03:48: 36 03-11 22:51 :45 No 50ug 50 mcg, Slow IV Push, Q4HPRN, Starting on Tue02/25/21 at 2248, Until Tue03/11/21 at 1651, Routine, Pain (scale 7-10) [facility] metoprolol succinate XL (TOPROL XL) tablet 50 mg 2020-04 03:45: 00 Yes 50mg 50 mg, Oral, BID, First dose on Tue02/25/21 at 2245, Until Discontinu ed, [facility] 8.6 mg 2020-04 03:45: 00 Yes 8.6mg 8.6 mg, Oral, BID, First dose on Tue02/25/21 at 2245, Until Discontinu ed, Routine [facility] docusate (COLACE) capsule 100 mg 2020-04 03:45: 00 Yes 100mg 100 mg, Oral, BID, First dose on Tue02/25/21 at 2245, Until Discontinu ed, Routine [facility] omep[facility] (PRILOSEC) capsule 40 mg 2020-04 03:45: 00 Yes 40mg 40 mg, Oral, DAILY, First dose on Tue02/25/21 at 2245, Until Discontinu ed, Routine [facility] pravastatin (PRAVACHOL) tablet 20 mg 2020-04 03:45: 00 Yes 20mg 20 mg, Oral, QHS, First dose on Tue02/25/21 at 2245, Until Discontinu ed, Routine [facility] OLANZapine (ZyPREXA) tablet 20 mg 2020-04 03:45: 00 Yes 20mg 20 mg, Oral, QPM, First dose on Tue02/25/21 at 2245, Until Discontinu ed, Routine [facility] benztropine (COGENTIN) tablet 2 mg 2020-04 03:45: 00 Yes 2mg 2 mg, Oral, QPM, First dose on Tue02/25/21 at 2245, Until Discontinu ed, Routine [facility] nitroglycer in (NITROSTAT) sublingual tablet 0.4 mg 2020-04 01:09: 31 Yes .4mg 0.4 mg, Sublingual , Q5MIN PRN, Starting on Tue02/25/21 at 2008, Until Discontinu ed, Routine, Chest pain [facility] morpHINE injection 4 mg 2020-04 01:09: 00 02-26 03:48 :46 No 4mg 4 mg, Slow IV Push, Q4HPRN, Starting on Tue02/25/21 at 2008, Until Tue02/25/21 at 2248, Routine, Pain (scale 7-10) [facility] HYDROcodone -acetaminop hen (NORCO 5) 5-325 mg tablet 1 tablet 2020-04 01:08: 58 02-28 01:07 :58 No 1{tbl} 1 tablet, Oral, Q6HPRN, Starting on Tue02/25/21 at 2007, Until Tue02/27/21 at 2006, Routine, Pain (scale 4-6) [facility] acetaminoph en (TYLENOL) tablet 650 mg 2020-04 01:08: 57 02-28 17:12 :47 No 650mg 650 mg, Oral, Q6HPRN, Starting on Tue02/25/21 at 2007, Until Tue02/28/21 at 1212, Routine, Pain (scale 1-3) [facility] LIPASE/PROT EASE/AMYLAS E (CREON ORAL) 2020-04 22:59: 11 02-25 00:00 :00 No Take by mouth. [facility] piperacilli n-tazobacta m (ZOSYN) 3.375 g in NaCl 0.9% (NS) 100 mL MINI-BAG 2020-04 22:30: 00 02-25 22:00 :00 No 3.375g 3.375 g, IV Piggyback, ONCE, 1 dose, On Tue02/25/21 at 1730, Administer over 30 Minutes, 100 mL
Reas on for Anti-Infec tive: Documented Infection< br>Documen deshaun Infection Site: Respirator y
Durat ion of Therapy: Other (see Comments) [facility] ondansetron (ZOFRAN (PF)) injection 4 mg 2020-04 21:39: 00 02-25 21:40 :00 No 4mg 4 mg, Slow IV Push, ONCE, 1 dose, On Tue02/25/21 at 1645, NICOLE [facility] FENTanyl PF (SUBLIMAZE (PF)) injection 50 mcg 2020-04 21:39: 00 02-25 21:40 :00 No 50ug 50 mcg, Slow IV Push, ONCE, 1 dose, On Tue02/25/21 at 1645, Routine [facility] iopamidol (ISOVUE 370-500 mL) injection 120 mL 2020-04 18:15: 00 02-25 18:14 :00 No [id number] 120mL 120 mL, Intravenou s, ONCE, 1 dose, On Tue02/25/21 at 1315, Routine [facility] NaCl 0.9% (NS) bolus infusion 1,000 mL 2020-04 17:15: 00 02-25 17:45 :00 No 1000mL at 999 mL/hr, 1,000 mL, IV Infusion, ONCE, 1 dose, On Tue02/25/21 at 1215, NICOLE [facility] iohexol (OMNIPAQUE 350 BULK-150 mL) injection 120 mL 06-19 23:00: 00 06-19 22:47 :00 No 120mL 120 mL, Intravenou s, ONCE, 1 dose, Maureen 06/19/20 at 1700, Routine [facility] NaCl 0.9% (NS) bolus infusion 1,000 mL 06-19 21:45: 00 06-20 00:00 :00 No 1000mL at 999 mL/hr, 1,000 mL, IV Infusion, ONCE, 1 dose, Maureen 06/19/20 at 1545, NICOLE [facility] naproxen sodium (ANAPROX DS) 550 mg tablet 06-19 00:00: 00 Yes [id number] 08 550mg Take 1 tablet by mouth 2 (two) times daily with meals. [facility] OLANZAPINE (ZYPREXA ORAL) 05-05 15:44: 36 Yes 10mg Take 10 mg by mouth every evening. [facility] LIPASE/PROT EASE/AMYLAS E (CREON ORAL) 05-05 15:44: 36 Yes Take by mouth. [facility] fenofibrate 145 mg tablet 05-05 00:00: 00 Yes [id number] 145mg Take 1 tablet by mouth daily. [facility] Insulin Glargine (BASAGLAR KWIKPEN U-100 INSULIN) 100 unit/mL (3 mL) injection 05-05 00:00: 00 Yes [id number] 60U inject 60 Units under the skin daily. [facility] carvedilol 25 mg tablet 12-23 00:00: 00 Yes [id number] 25mg Take 1 tablet by mouth 2 (two) times daily with meals. [facility] atorvastati n 40 mg tablet 12-23 00:00: 00 Yes [id number] 40mg Take 1 tablet by mouth at bedtime. [facility] metformin ER 750 mg 24 hr tablet 12-23 00:00: 00 Yes 750mg Take 1 tablet by mouth 2 (two) times daily. [facility] losartan 50 mg tablet 12-23 00:00: 00 Yes 50mg Take 1 tablet by mouth daily. [facility] ibuprofen 800 mg tablet 09-02 00:00: 00 Yes 800mg Take 1 tablet by mouth every 8 (eight) hours as needed for Pain (scale 4-6). [facility] Ketoprofen Ketoprofen Yes Bee Millender 1 capsule [facility] Niacin ER Niacin ER Yes Bee Millender 1 capsule with food [facility] Atorvastati n Calcium Atorvastati n Calcium Yes Bee Millender 1 tablet in evening [facility] Coreg Coreg Yes Bee Millender 1 tablet [facility] Mobic Mobic Yes Bee Millender 1 tablet [facility] Lofibra Lofibra Yes Bee Millender 1 tablet with food [facility] Indomethaci n Indomethaci n Yes Bee Millender 1 capsule with food or milk [facility] Creon Creon Yes Bee Millender not defined [facility] Metformin HCl Metformin HCl Yes Bee Millender 1 tablet with meals [facility] Lantus SoloStar Lantus SoloStar Yes Bee Millender 60 units [facility] Losartan Potassium Losartan Potassium Yes Bee Rgender 1 tablet [facility] Aspir-Low Aspir-Low Yes Bee Rgender 1 tablet [facility] Zyprexa Zyprexa Yes Bee Rgender 1 tablet [facility] Vital Signs Vital Name Observation Time Observation Value Comments S ource Systolic blood pressure 2024-05-09 02:40:00 186 mm[Hg] [facility] Diastolic blood pressure 2024-05-09 02:40:00 123 mm[Hg] [facility] Heart rate 2024-05-09 02:40:00 108 /min Un[facility] Respiratory rate 2024-05-09 02:40:00 18 /min [facility] Oxygen saturation in Arterial blood by Pulse oximetry 2024-05-09 02:40:00 99 /min [facility] Body temperature 2024-05-09 01:15:00 36.44 Kristi [facility] Body weight 2024-05-09 01:15:00 102.059 kg [facility] BMI 2024-05-09 01:15:00 33.23 kg/m2 [facility] Systolic blood pressure 2022-11-23 18:58:00 134 mm[Hg] [facility] Diastolic blood pressure 2022-11-23 18:58:00 95 mm[Hg] [facility] Heart rate 2022-11-23 18:58:00 86 /min [facility] Oxygen saturation in Arterial blood by Pulse oximetry 2022-11-23 18:58:00 96 /min [facility] Body temperature 2022-11-23 18:57:00 36.67 Kristi [facility] Respiratory rate 2022-11-23 18:57:00 20 /min [facility] Body height 2022-11-23 18:57:00 175.3 cm [facility] Body weight 2022-11-23 18:57:00 113.399 kg [facility] BMI 2022-11-23 18:57:00 36.92 kg/m2 [facility] Systolic blood pressure 2022-10-12 19:42:00 127 mm[Hg] [facility] Diastolic blood pressure 2022-10-12 19:42:00 85 mm[Hg] [facility] Body temperature 2022-10-12 19:42:00 36.67 Kristi [facility] Respiratory rate 2022-10-12 19:42:00 18 /min [facility] Body height 2022-10-12 19:42:00 177.8 cm [facility] Body weight 2022-10-12 19:42:00 110.043 kg [facility] BMI 2022-10-12 19:42:00 34.81 kg/m2 [facility] Oxygen saturation in Arterial blood by Pulse oximetry 2022-10-12 19:42:00 96 /min [facility] Heart rate 2022-09-24 21:50:00 112 /min [facility] Oxygen saturation in Arterial blood by Pulse oximetry 2022-09-24 21:50:00 95 /min [facility] Systolic blood pressure 2022-09-24 21:45:00 137 mm[Hg] [facility] Diastolic blood pressure 2022-09-24 21:45:00 84 mm[Hg] [facility] Body temperature 2022-09-24 21:00:00 36.33 Kristi [facility] Respiratory rate 2022-09-24 21:00:00 18 /min [facility] Body height 2022-09-24 15:28:00 177.8 cm [facility] Body weight 2022-09-24 15:28:00 113.399 kg [facility] BMI 2022-09-24 15:28:00 35.87 kg/m2 [facility] Systolic blood pressure 2022-09-24 15:28:00 135 mm[Hg] [facility] Diastolic blood pressure 2022-09-24 15:28:00 93 mm[Hg] [facility] Heart rate 2022-09-24 15:28:00 70 /min [facility] Body temperature 2022-09-24 15:28:00 36.33 Kristi [facility] Respiratory rate 2022-09-24 15:28:00 16 /min [facility] Body height 2022-09-24 15:28:00 177.8 cm Univ [facility] Body weight 2022-09-24 15:28:00 113.399 kg Univ [facility] BMI 2022-09-24 15:28:00 35.87 kg/m2 [facility] Oxygen saturation in Arterial blood by Pulse oximetry 2022-09-24 15:28:00 96 /min [facility] Systolic blood pressure 2022-08-12 13:49:00 141 mm[Hg] [facility] Diastolic blood pressure 2022-08-12 13:49:00 97 mm[Hg] [facility] Heart rate 2022-08-12 13:48:00 78 /min Unive [facility] Body temperature 2022-08-12 13:48:00 36.06 Kristi [facility] Respiratory rate 2022-08-12 13:48:00 18 /min [facility] Body height 2022-08-12 13:48:00 177.8 cm [facility] Body weight 2022-08-12 13:48:00 113.399 kg [facility] BMI 2022-08-12 13:48:00 35.87 kg/m2 [facility] Oxygen saturation in Arterial blood by Pulse oximetry 2022-08-12 13:48:00 97 /min [facility] Systolic blood pressure 2021-03-12 13:39:00 111 mm[Hg] [facility] Diastolic blood pressure 2021-03-12 13:39:00 70 mm[Hg] [facility] Heart rate 2021-03-12 13:39:00 78 /min [facility] Body temperature 2021-03-12 13:39:00 36.39 Kristi [facility] Respiratory rate 2021-03-12 13:39:00 18 /min [facility] Oxygen saturation in Arterial blood by Pulse oximetry 2021-03-12 13:39:00 95 /min [facility] Body weight 2021-03-10 11:46:00 112.492 kg [facility] BMI 2021-03-10 11:46:00 35.58 kg/m2 [facility] Body height 2021-02-26 01:58:00 177.8 cm [facility] Systolic blood pressure 2020-06-19 23:00:00 135 mm[Hg] [facility] Diastolic blood pressure 2020-06-19 23:00:00 95 mm[Hg] [facility] Heart rate 2020-06-19 23:00:00 92 /min [facility] Respiratory rate 2020-06-19 23:00:00 19 /min [facility] Oxygen saturation in Arterial blood by Pulse oximetry 2020-06-19 23:00:00 98 /min [facility] Body temperature 2020-06-19 21:08:00 36.56 Kristi [facility] Body weight 2020-06-19 21:08:00 90.719 kg [facility] BMI 2020-06-19 21:08:00 29.53 kg/m2 [facility] Systolic blood pressure 2020-06-11 22:40:00 153 mm[Hg] [facility] Diastolic blood pressure 2020-06-11 22:40:00 108 mm[Hg] [facility] Heart rate 2020-06-11 22:40:00 115 /min [facility] Body temperature 2020-06-11 22:40:00 37.33 Kristi [facility] Respiratory rate 2020-06-11 22:40:00 18 /min [facility] Body weight 2020-06-11 22:40:00 113.399 kg [facility] BMI 2020-06-11 22:40:00 36.92 kg/m2 [facility] Oxygen saturation in Arterial blood by Pulse oximetry 2020-06-11 22:40:00 98 /min [facility] Procedures Procedure Date / Time Performed Performing Clinician Source POCT GLUCOSE (AUTOMATED) 2022-09-24 21:11:00 Essence Landry [facility] POCT GLUCOSE (AUTOMATED) 2022-09-24 21:11:00 Essence Landry [facility] INGUINAL HERNIORRHAPHY 2022-09-24 17:17:00 Dheeraj Landry [facility] POCT GLUCOSE (AUTOMATED) 2022-09-24 15:35:00 Essence Landry [facility] POCT GLUCOSE (AUTOMATED) 2022-09-24 15:35:00 Essence Landry [facility] DAY SURGERY - ADC 2022-09-24 05:01:00 Doctor Anika ssigned, [place] [facility] EXTERNAL PROVIDER RECORDS 2022-08-18 05:01:00 Do ctor Unassigned, [place] [facility] EXTERNAL PROVIDER RECORDS 2022-08-18 05:01:00 Do ctor Unassigned, [place] [facility] PATIENT TEACHING/INSTRUCTIONS- OUTPATIENT 2022-08-16 05:01:00 Doctor Unassigned, [place] [facility] DISCLOSURE AND CONSENT, MEDICAL AND SURGICAL PROCEDURES 2022-08-13 05:01:00 Doctor Unassigned, [place] [facility] DISCLOSURE AND CONSENT, MEDICAL AND SURGICAL PROCEDURES 2022-08-13 05:01:00 Doctor Unassigned, [place] [facility] EXTERNAL PROVIDER RECORDS 2022-08-10 05:01:00 Do ctor Unassigned, [place] [facility] XR CHEST 1 VW 2021-03-12 07:52:00 Chaim Ji [facility] POCT GLUCOSE (AUTOMATED) 2021-03-12 03:03:00 Gorge Tavarez [facility] POCT GLUCOSE (AUTOMATED) 2021-03-11 22:42:00 Corby nahomi [facility] POCT GLUCOSE (AUTOMATED) 2021-03-11 17:48:00 Corby nahomi [facility] POCT GLUCOSE (AUTOMATED) 2021-03-11 14:06:00 Gorge Tavarez [facility] CBC WITH DIFF 2021-03-11 10:11:00 Fred Marquez [facility] POCT GLUCOSE (AUTOMATED) 2021-03-10 23:38:00 Corby, [facility] POCT GLUCOSE (AUTOMATED) 2021-03-10 17:46:00 Corby [facility] POCT GLUCOSE (AUTOMATED) 2021-03-10 13:56:00 Corby [facility] MAGNESIUM 2021-03-10 11:45:00 Fred Marquez [facility] BASIC METABOLIC PANEL (NA, K, CL, CO2, GLUCOSE, BUN, CREATININE, CA) 2021-03-10 11:45:00 Fred Marquez [facility] CBC WITH DIFF 2021-03-10 11:45:00 Fred Marquez [facility] XR CHEST 1 VW 2021-03-10 02:30:49 Fred Marquez [facility] POCT GLUCOSE (AUTOMATED) 2021-03-09 22:40:00 Corby [facility] POCT GLUCOSE (AUTOMATED) 2021-03-09 17:10:00 Corby [facility] POCT GLUCOSE (AUTOMATED) 2021-03-09 13:43:00 Corby [facility] POCT GLUCOSE (AUTOMATED) 2021-03-09 03:25:00 Corby [facility] POCT GLUCOSE (AUTOMATED) 2021-03-08 22:35:00 Corby [facility] XR CHEST 1 VW 2021-03-08 21:55:38 Fred Marquez [facility] XR CHEST 1 VW 2021-03-08 18:47:03 Fred Marquez [facility] POCT GLUCOSE (AUTOMATED) 2021-03-08 17:23:00 Corby [facility] POCT GLUCOSE (AUTOMATED) 2021-03-08 13:23:00 Corby [facility] MAGNESIUM 2021-03-08 12:06:00 Fred Marquez [facility] BASIC METABOLIC PANEL (NA, K, CL, CO2, GLUCOSE, BUN, CREATININE, CA) 2021-03-08 12:06:00 Fred Marquez [facility] CBC WITH DIFF 2021-03-08 12:05:00 Fred Marquez [facility] POCT GLUCOSE (AUTOMATED) 2021-03-08 01:58:00 Corby [facility] POCT GLUCOSE (AUTOMATED) 2021-03-07 22:48:00 Corby [facility] POCT GLUCOSE (AUTOMATED) 2021-03-07 17:13:00 Corby [facility] POCT GLUCOSE (AUTOMATED) 2021-03-07 14:37:00 Corby [facility] POCT GLUCOSE (AUTOMATED) 2021-03-06 22:23:00 Corby [facility] POCT GLUCOSE (AUTOMATED) 2021-03-06 18:13:00 Corby [facility] CT THORAX WO CONTRAST 2021-03-06 17:19:17 Dasha Swansonprrosio [facility] POCT GLUCOSE (AUTOMATED) 2021-03-06 13:55:00 Corby [facility] POCT GLUCOSE (AUTOMATED) 2021-03-06 02:53:00 Corby [facility] POCT GLUCOSE (AUTOMATED) 2021-03-05 21:46:00 Corby [facility] XR CHEST 1 VW 2021-03-05 18:48:00 Fred Marquez [facility] POCT GLUCOSE (AUTOMATED) 2021-03-05 17:47:00 Corby [facility] POCT GLUCOSE (AUTOMATED) 2021-03-05 13:51:00 Corby [facility] MAGNESIUM 2021-03-05 10:03:00 Fred Marquez [facility] BASIC METABOLIC PANEL (NA, K, CL, CO2, GLUCOSE, BUN, CREATININE, CA) 2021-03-05 10:03:00 Fred Marquez [facility] CBC WITH DIFF 2021-03-05 10:02:00 Fred Marquez [facility] POCT GLUCOSE (AUTOMATED) 2021-03-04 22:05:00 Corby [facility] CYTO PLEURAL FLUID 2021-03-04 21:57:00 [facility] 2021-03-04 21:55:00 Laury Swanson [facility] T.PROTEIN BODY FLUID 2021-03-04 21:54:00 Jake Swanson [facility] FUNGUS (ROUTINE) CULTURE 2021-03-04 21:54:00 Dasha Swanson [facility] BODY FLUID CULTURE(AEROBIC/ANAEROBIC ) 2021-03-04 21:54:00 Jake Swanson [facility] LDH TOTAL BODY FLUID 2021-03-04 21:54:00 Jake Swanson [facility] XR CHEST 1 VW 2021-03-04 21:41:43 Jake Swanson [facility] POCT GLUCOSE (AUTOMATED) 2021-03-04 17:11:00 Gorge Tavarez [facility] XR CHEST 1 VW 2021-03-04 16:12:48 Fred Marquez [facility] MAGNESIUM 2021-03-04 15:25:00 Fred Marquez [facility] BASIC METABOLIC PANEL (NA, K, CL, CO2, GLUCOSE, BUN, CREATININE, CA) 2021-03-04 15:25:00 Fred Marquez [facility] POCT GLUCOSE (AUTOMATED) 2021-03-04 13:30:00 Gorge Tavarez [facility] LACTATE DEHYDROGENASE 2021-03-04 09:06:00 [facility] CBC WITH DIFF 2021-03-04 09:06:00 Fred Marquez [facility] CT THORAX WO CONTRAST 2021-03-03 20:30:51 Josh Marquez [facility] POCT GLUCOSE (AUTOMATED) 2021-03-03 17:53:00 Gorge Tavarez [facility] POCT GLUCOSE (AUTOMATED) 2021-03-03 13:30:00 Gorge Tavarez [facility] PHOSPHORUS 2021-03-03 11:30:00 [facility] MAGNESIUM 2021-03-03 11:30:00 [facility] BASIC METABOLIC PANEL (NA, K, CL, CO2, GLUCOSE, BUN, CREATININE, CA) 2021-03-03 11:30[facility]00 [facility] 2021-03-03 11:30:00 Chaim Ji [facility] POCT GLUCOSE (AUTOMATED) 2021-03-03 01:52:00 Corby [facility] POCT GLUCOSE (AUTOMATED) 2021-03-02 22:35:00 Corby [facility] POCT GLUCOSE (AUTOMATED) 2021-03-02 17:42:00 Corby [facility] POCT GLUCOSE (AUTOMATED) 2021-03-02 13:35:00 Corby [facility] COMP. METABOLIC PANEL ([id number]) 2021-03-02 10:53:00 [facility] CBC WITH DIFF 2021-03-02 10:52:00 Chaim Ji [facility] POCT GLUCOSE (AUTOMATED) 2021-03-02 03:55:00 Corby [facility] POCT GLUCOSE (AUTOMATED) 2021-03-01 22:54:00 Corby [facility] POCT GLUCOSE (AUTOMATED) 2021-03-01 17:34:00 Corby [facility] POCT GLUCOSE (AUTOMATED) 2021-03-01 14:28:00 Corby [facility] PHOSPHORUS 2021-03-01 09:22:00 Chaim Ji [facility] MAGNESIUM 2021-03-01 09:22:00 Chaim Ji [facility] BASIC METABOLIC PANEL (NA, K, CL, CO2, GLUCOSE, BUN, CREATININE, CA) 2021-03-01 09:22:00 [facility] 2021-03-01 09:22:00 Chaim Ji [facility] POCT GLUCOSE (AUTOMATED) 2021-03-01 00:42:00 Corby [facility] POCT GLUCOSE (AUTOMATED) 2021-02-28 22:04:00 Gorge Tavarez [facility] SPUTUM CULTURE 2021-02-28 17:09:00 Chaim Ji [facility] POCT GLUCOSE (AUTOMATED) 2021-02-28 16:45:00 Gorge Tavarez [facility] PNEUMOCOCCAL ANTIGEN 2021-02-28 14:11:00 Dana Ji [facility] POCT GLUCOSE (AUTOMATED) 2021-02-28 12:52:00 Corby [facility] COMP. METABOLIC PANEL ([id number]) 2021-02-28 11:09:00 Corby [facility] CBC WITH DIFF 2021-02-28 11:09:00 Chaim Ji [facility] POCT GLUCOSE (AUTOMATED) 2021-02-28 01:52:00 Corby [facility] POCT GLUCOSE (AUTOMATED) 2021-02-27 21:46:00 Corby [facility] POCT GLUCOSE (AUTOMATED) 2021-02-27 16:40:00 Corby [facility] AFB CULTURE 2021-02-27 13:26:00 Gorge Tavarez [facility] MYCOBACTERIUM TUBERCULOSIS COMPLEX PCR 2021-02-27 13:26:00 Leigha Thorne [facility] POCT GLUCOSE (AUTOMATED) 2021-02-27 12:29:00 Corby [facility] POCT GLUCOSE (AUTOMATED) 2021-02-27 11:07:00 Gorge Tavarez [facility] PHOSPHORUS 2021-02-27 07:00:00 Chaim Ji [facility] MAGNESIUM 2021-02-27 07:00:00 Chaim Ji [facility] COMP. METABOLIC PANEL ([id number]) 2021-02-27 07:00:00 Gorge Tavarez [facility] VANCOMYCIN TROUGH 2021-02-27 07:00:00 Gorge Tavarez [facility] CBC WITH DIFF 2021-02-27 07:00:00 Chaim Ji [facility] POCT GLUCOSE (AUTOMATED) 2021-02-27 05:01:00 Gorge Tavarez [facility] POCT GLUCOSE (AUTOMATED) 2021-02-27 00:19:00 Gorge Tavarez [facility] TRANSTHORACIC ECHO (TTE) COMPLETE W/ CONTRAST 2021-02-26 18:22:00 Gorge Tavarez [facility] LACTATE DEHYDROGENASE 2021-02-26 17:07:00 Dash Tavarez [facility] POCT GLUCOSE (AUTOMATED) 2021-02-26 16:37:00 Corby nahomi [facility] MRSA / MSSA SCREEN BY PCR, JAYDE 2021-02-26 16:16:00 Fara Bettencourt [facility] XR CHEST 1 VW 2021-02-26 15:58:57 Jake Swanson [facility] IR THORACENTESIS WITH IMAGING 2021-02-26 15:45:04 Gorge Tavarez [facility] AMYLASE BODY FLUID 2021-02-26 15:15:00 Corby nahomi [facility] GLUCOSE BODY FLUID 2021-02-26 15:15:00 Corby nahomi [facility] PH, BODY FLUID 2021-02-26 15:15:00 Gorge Tavarez [facility] T.PROTEIN BODY FLUID 2021-02-26 15:15:00 Kady Tavarez [facility] LDH TOTAL BODY FLUID 2021-02-26 15:15:00 Kady Tavarez [facility] BODY FLUID DIRECT COUNT 2021-02-26 15:15:00 Cruz Tavarez [facility] FUNGUS (ROUTINE) CULTURE 2021-02-26 15:15:00 Corby nahomi [facility] BODY FLUID CULTURE(AEROBIC/ANAEROBIC ) 2021-02-26 15:15:00 Corby [facility] CYTO PLEURAL FLUID 2021-02-26 15:15:00 Chaim Ji [facility] AFB CULTURE 2021-02-26 14:51:00 Leigha Thorne [facility] MYCOBACTERIUM TUBERCULOSIS COMPLEX PCR 2021-02-26 14:51:00 Leigha Thorne [facility] POCT GLUCOSE (AUTOMATED) 2021-02-26 14:22:00 Gorge Tavarez [facility] PROTEIN TOTAL 2021-02-26 09:26:00 [facility] URIC ACID 2021-02-26 09:26:00 Gorge Tavarez [facility] AMYLASE 2021-02-26 09:26:00 Gorge Tavarez [facility] MAGNESIUM 2021-02-26 09:26:00 [facility] FERRITIN SERUM 2021-02-26 09:26:00 Gorge Tavarez [facility] TROPONIN I 2021-02-26 09:26:00 Corby nahomi [facility] THYROID STIMULATING HORMONE 2021-02-26 09:26:00 Gorge Tavarez [facility] COMP. METABOLIC PANEL ([id number]) 2021-02-26 09:26:00 Corby [facility] LIPID PANEL ([id number])(TOTAL CHOLESTEROL, TRIGLYCERIDES, HDL) 2021-02-26 09:26:00 Corby [facility] IRON PANEL 2021-02-26 09:26:00 Gorge Tavarez [facility] CBC WITH DIFF 2021-02-26 09:26:00 Chaim Ji [facility] N-TERMINAL PRO-BNP 2021-02-26 09:26:00 Gorge Tavarez [facility] HIV 1/2 AG-AB WITH REFLEX 2021-02-26 09:26:00 Chaim Ji [facility] AC ABG + LACTIC ACID 2021-02-26 08:24:00 Kady Tavarez [facility] XR CHEST 1 VW 2021-02-26 06:28:24 [facility] ACUTE CARE VENOUS BLOOD GAS 2021-02-26 06:21:00 Gorge Tavarez [facility] HB ECG ROUTINE & RHYTHM STRIP 2021-02-26 05:47:31 Gorge Tavarez [facility] BLOOD CULTURE SCREEN 2021-02-26 05:01:00 Kady Tavarez [facility] LACTATE DEHYDROGENASE 2021-02-26 05:01:00 Dash Tavarez [facility] VITAMIN B12, LEVEL 2021-02-26 05:01:00 Gorge Tavarez [facility] C-REACTIVE PROTEIN 2021-02-26 05:01:00 oGrge Tavarez [facility] TROPONIN I 2021-02-26 05:01:00 [facility] 2021-02-26 05:01:00 Corby nahomi [facility] VITAMIN D, 25-OH 2021-02-26 05:01:00 [facility] PROCALCIT[facility]IN 2021-02-26 05:01[facility] WHOLE [facility]LO[facility] 2021-02-26 04:59:00 Cruz Tavarez [facility] POCT GLUCOSE (AUTOMATED) 2021-02-26 04:32:00 Gorge Tavarez [facility] CT ABDOMEN PELVIS W CONTRAST 2021-02-25 18:36:20 Franklin Chatman [facility] CT THORAX W CONTRAST 2021-02-25 18:36:20 Yadiel Chatman [facility] PHOSPHORUS 2021-02-25 16:33:00 Chaim Ji [facility] LIPASE 2021-02-25 16:33:00 Franklin [facility] TROPONIN I 2021-02-25 16:33:00 Franklin [facility] COMP. METABOLIC PANEL ([id number]) 2021-02-25 16:33:00 Franklin Chatman [facility] SALICYLATE 2021-02-25 16:33:00 Franklin Chatamn [facility] ETHANOL 2021-02-25 16:33:00 Franklin Chatman [facility] DIFF CONSULT INTERPRETATION 2021-02-25 16:33:00 Gorge Tavarez [facility] CBC WITH DIFF 2021-02-25 16:33:00 Franklin Chatman [facility] GLYCOSYLATED HEMOGLOBIN (A1C) 2021-02-25 16:33:00 Gorge Tavarez [facility] PROTHROMBIN TIME / INR 2021-02-25 16:33:00 Troy Chatman [facility] ACTIVATED PARTIAL THRMPLAS ASYA 2021-02-25 16:33:00 Franklin Chatman [facility] N-TERMINAL PRO-BNP 2021-02-25 16:33:00 Franklin Chatman [facility] AC PANEL 21 + LACTIC ACID 2021-02-25 16:32:00 Franklin Chatman [facility] COVID-19 (ID NOW RAPID TESTING) 2021-02-25 16:27:00 [facility] [facility] LAB ONLY COVID INTERPRETATION 2021-02-25 16:27:00 Franklin Chatman [facility] URINALYSIS 2021-02-25 16:26:00 [facility] URINE DRUG (IMMUNOASSAY) - COMPREHENSIVE DRUG SCREEN W/O REFLEX 2021-02-25 16:26:00 Franklin Chatman [facility] EKG-12 LEAD 2021-02-25 16:00:24 [facility] AUTHORIZATION FOR RELEASE OF PHI 2020-11-13 05:01:00 Doctor Unassigned, [place] [facility] CT ABDOMEN PELVIS W CONTRAST 2020-06-19 22:50:39 Nikolay Schroeder [facility] BASIC METABOLIC PANEL (NA, K, CL, CO2, GLUCOSE, BUN, CREATININE, CA) 2020-06-19 21:56:00 Nikolay Schroeder [facility] CBC WITH DIFF 2020-06-19 21:56:00 Nikolay Schroeder [facility] URINALYSIS 2020-06-19 21:56:00 Nikolay Schroeder [facility] COVID-19 (ID NOW RAPID TESTING) 2020-06-19 21:56:00 Nikolay Schroeder [facility] NOTICE OF PRIVACY PRACTICES 2020-06-19 21:00:39 Doctor Unassigned, [place] [facility] CONSENT/REFUSAL FOR DIAGNOSIS AND TREATMENT 2020-06-19 21:00:23 Doctor Unassigned, [place] [facility] Encounters Start Date/Time End Date/Time Encounter Type Admission Type Attending [facility] Care Facility Care Department Encounter ID Source 2024-07-12 08:56:00 Outpatient STLMLC STLMLC [id number] [facility] 2021-02-22 01:27:[address] [facility] [id number] [facility] 2021-02-21 23:50:[address] [facility] [id number] [facility] 2024-05-08 19:17:00 2024-05-08 20:53:00 Emergency X XOCHITL FREEMAN [facility] ERT [id number] [facility] 2024-05-08 19:17:00 2024-05-08 20:53:00 Emergency Xochitl Freeman [facility] ([facility]) 1..840.114 350.1.13.10 4.2.7.2.686 [id number] [facility] 2022-11-23 13:15:00 2022-11-23 13:30:00 Office Visit Landry Essence [facility] 1.2.840.114 350.1.13.10 4.2.7.2.686 [id number] [facility] 2022-11-23 13:15:00 2022-11-23 13:15:00 Outpatient R LANDRYESSENCE [facility] [id number] [facility] 2022-10-12 14:00:00 2022-10-12 14:15:00 Office Visit LandryEssence panda [facility] 1.2.840.114 350.1.13.10 4.2.7.2.686 [id number] [facility] 2022-10-12 14:00:00 2022-10-12 14:00:00 Outpatient R ESSENCE LANDRY [facility] [id number] [facility] 2022-09-24 10:13:00 2022-09-24 17:05:00 [facility] [id number] [facility] 2022-09-24 10:13:00 2022-09-24 17:05:00 Hospital Encounter Frantz [facility] 1.2840.114 350.1.13.10 4.2.7.2.686 [id number] [facility] 2022-09-24 12:00:00 2022-09-24 15:06:00 Surgery Frantz [facility] 1.2.840.114 350.1.13.10 4.2.7.2.686 [id number] [facility] 2022-09-24 00:00:00 2022-09-24 00:00:00 Orders Only Doctor Unassigned, [place] [facility] 1.2840.114 350.1.13.10 4.2.7.2.686 [id number] [facility] 2022-08-16 00:00:00 2022-08-16 00:00:00 Telephone Frantz [facility] 1.2840.114 350.1.13.10 4.2.7.2.686 [id number] [facility] 2022-08-16 00:00:00 2022-08-16 00:00:00 Orders Only Doctor Unassigned, [place] [facility] 1.2840.114 350.1.13.10 4.2.7.2.686 [id number] [id number] [facility] 2022-08-12 09:00:00 2022-08-12 11:17:17 Outpatient R ESSENCE LANDRY [facility] [id number] [facility] 2022-08-12 09:00:00 2022-08-12 11:17:17 Office Visit Essence Landry [facility] 1..840.114 350.1.13.10 4.2.7.2.686 [id number] [facility] 2022-08-10 15:00:00 2022-08-10 15:00:00 Outpatient R ESSENCE LANDRY [facility] [id number] [facility] 2022-08-10 00:00:00 2022-08-10 00:00:00 Orders Only Doctor Unassigned, [place] [facility] 1.840.114 350.1.13.10 4.2.7.2.686 [id number] [id number] [facility] 2021-03-13 00:00:00 2021-03-13 00:00:00 Transition of Care Laney Roy 1..840.114 350.1.13.10 4.2.7.2.686 [id number] [facility] 2021-02-25 11:10:00 2021-03-12 13:40:00 Inpatient X GORGE TAVAREZ [facility] [id number] [facility] 2021-02-25 11:10:00 2021-03-12 13:40:00 Hospital Encounter Franklin Chatman Yaman Lakhani, Adnan [facility] 1..840.114 350.1.13.10 4.2.7.2.686 [id number] [facility] 2020-11-13 00:00:00 2020-11-13 00:00:00 Orders Only Doctor Unassigned, [place] [facility] 1.2.840.114 350.1.13.10 4.2.7.2.686 [id number] [facility] 2020-07-04 10:45:00 2020-07-04 10:45:00 Outpatient XOCHITL RANDALL [facility] [id number] [facility] 2020-06-19 15:11:00 2020-06-19 19:23:00 Emergency Allan Nikolay [facility] 1.2.840.114 350.1.13.10 4.2.7.2.686 [id number] [facility] 2020-06-19 00:00:00 2020-06-19 00:00:00 Orders Only Doctor Unassigned, [place] [facility] 1.2.840.114 350.1.13.10 4.2.7.2.686 [id number] [id number] [facility] 2020-06-11 16:42:00 2020-06-11 18:10:00 Emergency [facility] 1.2.840.114 350.1.13.10 4.2.7.2.686 [id number] [facility] 2017-10-13 09:10:00 2017-10-13 09:10:00 Outpatient [facility] [id number] [facility] 2017-10-13 08:45:00 2017-10-13 08:45:00 Outpatient [facility] [id number] [facility] 2017-07-13 09:45:00 2017-07-13 09:45:00 Outpatient [facility] [id number] [facility] Results Test Description Test Time Test Comments Results Result Co mments Source [facility]2022-09-24 21:13:50* Test Item Value Reference Range Interpretation Comme nts POCT GLU (test code = 5734598190) 295 mg/dL 70-110 H Lab Interpretation (test cod e = 85166-6) Abnormal [facility] GLUCOSE (AUTOMATED)2022-09-24 15:38:09* Test Item Value Reference Range Interpretation Comme nts POCT GLU (test code = 0644184389) 284 mg/dL 70-110 H Lab Interpretation (test cod e = 25530-1) Abnormal [facility] GLUCOSE (AUTOMATED)2022-09-24 15:38:09* Test Item Value Reference Range Interpretation Comme nts POCT GLU (test code = 6444345764) 284 mg/dL 70-110 H Lab Interpretation (test cod e = 82303-7) Abnormal [facility] GLUCOSE (AUTOMATED)2021-03-12 03:12:44* Test Item Value Reference Range Interpretation Comme nts POCT GLU (test code = 4198884444) 110 mg/dL 70-110 Lab Interpretation (test cod e = 07422-1) Normal [facility] GLUCOSE (AUTOMATED)2021-03-11 22:45:29* Test Item Value Reference Range Interpretation Comme nts POCT GLU (test code = 7428067898) 123 mg/dL 70-110 H Lab Interpretation (test cod e = 33121-5) Abnormal [facility] GLUCOSE (AUTOMATED)2021-03-11 17:54:49* Test Item Value Reference Range Interpretation Comme nts POCT GLU (test code = 9004676725) 139 mg/dL 70-110 H Lab Interpretation (test cod e = 91520-6) Abnormal [facility] GLUCOSE (AUTOMATED)2021-03-11 14:20:36* Test Item Value Reference Range Interpretation Comme nts POCT GLU (test code = 3176841972) 109 mg/dL 70-110 Lab Interpretation (test cod e = 40074-0) Normal [facility] WITH [id number] 11:18:50* Test Item Value Reference Range Interpretation [...] 32.2 g/dL 31.2-35.0 RDW-SD (test code = 86417-8) 41.5 fL 38.5-51.6 RDW-CV (test code = 788-0) 12.6 % 12.1-15.4 PLT (test code = 777-3) See_Comment H [Automated messa ge] The system which generated this result transmitted reference range: 150 - 328 10*3/?L. The reference range was not used to interpret this result as normal/abnormal. MPV (test code = 36095-9) 9.8 fL 9.8-13.0 NRBC/100 WBC (test code = 7026944406) See_Comment [Automated [employer] (fka [employer]) ssage] The system which generated this result transmitted reference range: 0.0 - 10.0 /100 WBCs. The reference range was not used to interpret this result as normal/abnormal. NRBC x10^3 (test code = 1712798653) <0.01 See_Comment [Automated messa ge] The system which generated this result transmitted reference range: 10*3/?L. The reference range was not used to interpret this result as normal/abnormal. GRAN MAT (NEUT) % (test code = 770-8) 55.2 % IMM GRAN % (test code = 3698933267) 0.60 % LYMPH % (test code = 736-9) 31.4 % MONO % (test code = 5905-5) 9.3 % EOS % (test code = 713-8) 2.7 % BASO % (test code = 706-2) 0.8 % GRAN MAT x10^3(ANC) (test code = 7352912241) 3.44 10*3/uL 1.99-6.95 IMM GRAN x10^3 (test code = 3799719476) 0.04 10*3/uL 0.00-0.06 LYMPH x10^3 (test code = 731-0) 1.96 10*3/uL 1.09-3.23 MONO x10^3 (test code = 742-7) 0.58 10*3/uL 0.36-1.02 EOS x10^3 (test code = 711-2) 0.17 10*3/uL 0.06-0.53 BASO x10^3 (test code = 704-7) 0.05 10*3/uL 0.01-0.09 Lab Interpretation (test code = 73670-5) Abnormal [facility] GLUCOSE (AUTOMATED)2021-03-10 23:57:30* Test Item Value Reference Range Interpretation Comme nts POCT GLU (test code = 6054555319) 153 mg/dL 70-110 H Lab Interpretation (test cod e = 57445-0) Abnormal [facility] GLUCOSE (AUTOMATED)2021-03-10 17:53:36* Test Item Value Reference Range Interpretation Comme nts POCT GLU (test code = 7516001533) 139 mg/dL 70-110 H Lab Interpretation (test cod e = 40225-6) Abnormal [facility] GLUCOSE (AUTOMATED)2021-03-10 14:30:24* Test Item Value Reference Range Interpretation Comme nts POCT GLU (test code = 8898486018) 111 mg/dL 70-110 H Lab Interpretation (test cod e = 22476-2) Abnormal [facility] METABOLIC PANEL (NA, K, CL, CO2, GLUCOSE, BUN, CREATININE, CA)2021-03-10 13:38:22* Test Item Value Reference Range Interpretation Comme nts NA (test code = 9706715696) 134 mmol/L 135-145 L K (test code = 6287830048) 3.9 mmol/L 3.5-5.0 CL (test code = 1139267976) 103 mmol/L 98-108 CO2 TOTAL (test code = 5602322598) 28 mmol/L 23-31 AGAP (test code = 4790659743) 2-16 BUN (test code = 2602612537) 10 mg/dL 7-23 GLUCOSE (test code = 5985698599) 116 mg/dL 70-110 H CREATININE (test code = 1585792672) 0.54 mg/dL 0.60-1.25 L CALCIUM (test code = 2807195148) 8.9 mg/dL 8.6-10.6 eGFR (test code = 5220213857) mL/min/1.73m2 CATALINA (test code = CATALINA) Association [...] imaging tests). Lab Interpretation (test code = 47397-2) [facility] 13:38:22* Test Item Value Reference Range Interpretation Comme nts MAGNESIUM (test code = 3613221317) 2.2 mg/dL 1.7-2.4 Lab Interpretation (test cod e = 46203-2) Normal [facility] WITH [id number] 12:21:36* Test Item Value Reference Range Interpretation [...] 32.1 g/dL 31.2-35.0 RDW-SD (test code = 62984-7) 42.3 fL 38.5-51.6 RDW-CV (test code = 788-0) 12.9 % 12.1-15.4 PLT (test code = 777-3) See_Comment H [Automated messa ge] The system which generated this result transmitted reference range: 150 - 328 10*3/?L. The reference range was not used to interpret this result as normal/abnormal. MPV (test code = 98091-9) 9.9 fL 9.8-13.0 NRBC/100 WBC (test code = 2888154070) See_Comment [Automated me ssage] The system which generated this result transmitted reference range: 0.0 - 10.0 /100 WBCs. The reference range was not used to interpret this result as normal/abnormal. NRBC x10^3 (test code = 4210475238) <0.01 See_Comment [Automated messa ge] The system which generated this result transmitted reference range: 10*3/?L. The reference range was not used to interpret this result as normal/abnormal. GRAN MAT (NEUT) % (test code = 770-8) 64.2 % IMM GRAN % (test code = 7358159884) 1.00 % LYMPH % (test code = 736-9) 23.0 % MONO % (test code = 5905-5) 9.8 % EOS % (test code = 713-8) 1.5 % BASO % (test code = 706-2) 0.5 % GRAN MAT x10^3(ANC) (test code = 2876455034) 6.50 10*3/uL 1.99-6.95 IMM GRAN x10^3 (test code = 9066730785) 0.10 10*3/uL 0.00-0.06 H LYMPH x10^3 (test code = 731-0) 2.33 10*3/uL 1.09-3.23 MONO x10^3 (test code = 742-7) 0.99 10*3/uL 0.36-1.02 EOS x10^3 (test code = 711-2) 0.15 10*3/uL 0.06-0.53 BASO x10^3 (test code = 704-7) 0.05 10*3/uL 0.01-0.09 Lab Interpretation (test code = 16027-9) Abnormal [facility] GLUCOSE (AUTOMATED)2021-03-09 22:46:56* Test Item Value Reference Range Interpretation Comme nts POCT GLU (test code = 3567145095) 119 mg/dL 70-110 H Lab Interpretation (test cod e = 26231-5) Abnormal [facility] GLUCOSE (AUTOMATED)2021-03-09 17:16:26* Test Item Value Reference Range Interpretation Comme nts POCT GLU (test code = 5398869261) 126 mg/dL 70-110 H Lab Interpretation (test cod e = 86283-0) Abnormal [facility] GLUCOSE (AUTOMATED)2021-03-09 13:50:01* Test Item Value Reference Range Interpretation Comme nts POCT GLU (test code = 1894021981) 110 mg/dL 70-110 Lab Interpretation (test cod e = 22130-0) Normal [facility] GLUCOSE (AUTOMATED)2021-03-09 03:32:40* Test Item Value Reference Range Interpretation Comme nts POCT GLU (test code = 6040017741) 145 mg/dL 70-110 H Notified Provide r Lab Interpretation (test code = 26179-9) Abnormal [facility] GLUCOSE (AUTOMATED)2021-03-08 22:44:07* Test Item Value Reference Range Interpretation Comme nts POCT GLU (test code = 0447000845) 135 mg/dL 70-110 H Lab Interpretation (test cod e = 88695-0) Abnormal [facility] GLUCOSE (AUTOMATED)2021-03-08 17:39:54* Test Item Value Reference Range Interpretation Comme nts POCT GLU (test code = 8611840320) 126 mg/dL 70-110 H Lab Interpretation (test cod e = 50395-8) Abnormal [facility] GLUCOSE (AUTOMATED)2021-03-08 13:26:14* Test Item Value Reference Range Interpretation Comme nts POCT GLU (test code = 0479003771) 122 mg/dL 70-110 H Lab Interpretation (test cod e = 07028-3) Abnormal [facility] METABOLIC PANEL (NA, K, CL, CO2, GLUCOSE, BUN, CREATININE, CA)2021-03-08 12:52:59* Test Item Value Reference Range Interpretation Comme nts NA (test code = 3479138180) 133 mmol/L 135-145 L K (test code = 4192308787) 4.5 mmol/L 3.5-5.0 CL (test code = 3066912258) 101 mmol/L 98-108 CO2 TOTAL (test code = 1365695408) 24 mmol/L 23-31 AGAP (test code = 3619806133) 2-16 BUN (test code = 4825701347) 12 mg/dL 7-23 GLUCOSE (test code = 4056176104) 136 mg/dL 70-110 H CREATININE (test code = 0415339590) 0.65 mg/dL 0.60-1.25 CALCIUM (test code = 7262898002) 8.9 mg/dL 8.6-10.6 eGFR (test code = 3994634207) mL/min/1.73m2 CATALINA (test code = CATALINA) Association [...] imaging tests). Lab Interpretation (test code = 72636-2) [facility] 12:52:59* Test Item Value Reference Range Interpretation Comme nts MAGNESIUM (test code = 4636912098) 2.2 mg/dL 1.7-2.4 Lab Interpretation (test cod e = 71870-1) [facility] [id number] 12:21:57* Test Item Value Reference Range Interpretation Comme nts WBC (test code = 6690-2) See_Comment H [Automated [employer]] The system which generated this result transmitted reference range: 4.20 - 10.70 10*3/?L. The reference range was not used to interpret this result as normal/abnormal. RBC (test code = 789-8) See_Comment L [Automated [employer] ge] The system which generated this result [...] 32.4 g/dL 31.2-35.0 RDW-SD (test code = 66257-2) 41.7 fL 38.5-51.6 RDW-CV (test code = 788-0) 12.9 % 12.1-15.4 PLT (test code = 777-3) See_Comment H [Automated messa ge] The system which generated this result transmitted reference range: 150 - 328 10*3/?L. The reference range was not used to interpret this result as normal/abnormal. MPV (test code = 52926-7) 10.0 fL 9.8-13.0 NRBC/100 WBC (test code = 8443084342) See_Comment [Automated [employer] (fka [employer]) ssage] The system which generated this result transmitted reference range: 0.0 - 10.0 /100 WBCs. The reference range was not used to interpret this result as normal/abnormal. NRBC x10^3 (test code = 5732155279) <0.01 See_Comment [Automated messa ge] The system which generated this result transmitted reference range: 10*3/?L. The reference range was not used to interpret this result as normal/abnormal. GRAN MAT (NEUT) % (test code = 770-8) 70.1 % IMM GRAN % (test code = 6970474219) 1.50 % LYMPH % (test code = 736-9) 18.8 % MONO % (test code = 5905-5) 7.8 % EOS % (test code = 713-8) 1.4 % BASO % (test code = 706-2) 0.4 % GRAN MAT x10^3(ANC) (test code = 9352078077) 8.11 10*3/uL 1.99-6.95 H IMM GRAN x10^3 (test code = 7329382962) 0.17 10*3/uL 0.00-0.06 H LYMPH x10^3 (test code = 731-0) 2.18 10*3/uL 1.09-3.23 MONO x10^3 (test code = 742-7) 0.90 10*3/uL 0.36-1.02 EOS x10^3 (test code = 711-2) 0.16 10*3/uL 0.06-0.53 BASO x10^3 (test code = 704-7) 0.05 10*3/uL 0.01-0.09 Lab Interpretation (test code = 95337-4) Abnormal [facility] GLUCOSE (AUTOMATED)2021-03-08 02:37:36* Test Item Value Reference Range Interpretation Comme nts POCT GLU (test code = 4372460983) 141 mg/dL 70-110 H Notified Provide r Lab Interpretation (test code = 80600-3) Abnormal [facility] GLUCOSE (AUTOMATED)2021-03-07 23:10:44* Test Item Value Reference Range Interpretation Comme nts POCT GLU (test code = 7281763684) 108 mg/dL 70-110 Lab Interpretation (test cod e = 18399-8) Normal [facility] GLUCOSE (AUTOMATED)2021-03-07 17:15:58* Test Item Value Reference Range Interpretation Comme nts POCT GLU (test code = 7530579674) 136 mg/dL 70-110 H Lab Interpretation (test cod e = 09448-9) Abnormal [facility] GLUCOSE (AUTOMATED)2021-03-07 14:40:51* Test Item Value Reference Range Interpretation Comme nts POCT GLU (test code = 6691110416) 127 mg/dL 70-110 H Lab Interpretation (test cod e = 54939-8) Abnormal [facility] GLUCOSE (AUTOMATED)2021-03-06 22:26:48* Test Item Value Reference Range Interpretation Comme nts POCT GLU (test code = 3862581280) 136 mg/dL 70-110 H Lab Interpretation (test cod e = 30140-0) Abnormal [facility] GLUCOSE (AUTOMATED)2021-03-06 18:19:30* Test Item Value Reference Range Interpretation Comme nts POCT GLU (test code = 0808194140) 115 mg/dL 70-110 H Lab Interpretation (test cod e = 80018-1) Abnormal [facility] GLUCOSE (AUTOMATED)2021-03-06 15:23:47* Test Item Value Reference Range Interpretation Comme nts POCT GLU (test code = 7618035895) 114 mg/dL 70-110 H Lab Interpretation (test cod e = 78242-0) Abnormal [facility] GLUCOSE (AUTOMATED)2021-03-06 06:27:55* Test Item Value Reference Range Interpretation Comme nts POCT GLU (test code = 3323516914) 136 mg/dL 70-110 H Lab Interpretation (test cod e = 83180-4) Abnormal [facility] GLUCOSE (AUTOMATED)2021-03-05 22:19:25* Test Item Value Reference Range Interpretation Comme nts POCT GLU (test code = 2009004577) 98 mg/dL 70-110 Lab Interpretation (test cod e = 73664-3) Normal [facility] GLUCOSE (AUTOMATED)2021-03-05 18:16:27* Test Item Value Reference Range Interpretation Comme nts POCT GLU (test code = 8338068398) 151 mg/dL 70-110 H Lab Interpretation (test cod e = 94885-9) Abnormal [facility] GLUCOSE (AUTOMATED)2021-03-05 14:28:55* Test Item Value Reference Range Interpretation Comme nts POCT GLU (test code = 1215012846) 123 mg/dL 70-110 H Lab Interpretation (test cod e = 26686-8) Abnormal [facility] WITH [id number] 12:41:13* Test Item Value Reference Range Interpretation [...] 31.7 g/dL 31.2-35.0 RDW-SD (test code = 47670-3) 44.4 fL 38.5-51.6 RDW-CV (test code = 788-0) 13.5 % 12.1-15.4 PLT (test code = 777-3) See_Comment H [Automated messa ge] The system which generated this result transmitted reference range: 150 - 328 10*3/?L. The reference range was not used to interpret this result as normal/abnormal. MPV (test code = 64064-8) 10.4 fL 9.8-13.0 NRBC/100 WBC (test code = 8556565195) See_Comment [Automated [employer] (fka [employer]) ssage] The system which generated this result transmitted reference range: 0.0 - 10.0 /100 WBCs. The reference range was not used to interpret this result as normal/abnormal. NRBC x10^3 (test code = 5729463076) <0.01 See_Comment [Automated messa ge] The system which generated this result transmitted reference range: 10*3/?L. The reference range was not used to interpret this result as normal/abnormal. GRAN MAT (NEUT) % (test code = 770-8) 70.2 % IMM GRAN % (test code = 6303852447) 3.40 % LYMPH % (test code = 736-9) 16.8 % MONO % (test code = 5905-5) 7.6 % EOS % (test code = 713-8) 1.3 % BASO % (test code = 706-2) 0.7 % GRAN MAT x10^3(ANC) (test code = 5973080763) 8.95 10*3/uL 1.99-6.95 H IMM GRAN x10^3 (test code = 0928799917) 0.43 10*3/uL 0.00-0.06 H LYMPH x10^3 (test code = 731-0) 2.14 10*3/uL 1.09-3.23 MONO x10^3 (test code = 742-7) 0.97 10*3/uL 0.36-1.02 EOS x10^3 (test code = 711-2) 0.17 10*3/uL 0.06-0.53 BASO x10^3 (test code = 704-7) 0.09 10*3/uL 0.01-0.09 Lab Interpretation (test code = 66191-0) Abnormal [facility] METABOLIC PANEL (NA, K, CL, CO2, GLUCOSE, BUN, CREATININE, CA)2021-03-05 11:23:26* Test Item Value Reference Range Interpretation Comme nts NA (test code = 3932435447) 135 mmol/L 135-145 K (test code = 3738430834) 4.2 mmol/L 3.5-5.0 CL (test code = 8521257495) 101 mmol/L 98-108 CO2 TOTAL (test code = 3037856203) 27 mmol/L 23-31 AGAP (test code = 6232021741) 2-16 BUN (test code = 2950877212) 9 mg/dL 7-23 GLUCOSE (test code = 1260524646) 135 mg/dL 70-110 H CREATININE (test code = 3363539042) 0.65 mg/dL 0.60-1.25 CALCIUM (test code = 8561405498) 8.8 mg/dL 8.6-10.6 eGFR (test code = 6934660250) mL/min/1.73m2 CATALINA (test code = CATALINA) Association [...] imaging tests). Lab Interpretation (test code = 30271-9) [facility] Test Item Value Reference Range Interpretation Comme nts MAGNESIUM (test code = 5805524947) 2.5 mg/dL 1.7-2.4 H Lab Interpretation (test cod e = 35147-7) [id number] 01:18:05* Test Item Value Reference Range Interpretation Comme nts LDH (test code = 6561712883) 753 U/L 300-600 H Lab Interpretation (test cod e = 36290-1) Abnormal [facility] [facility] GLUCOSE (AUTOMATED)2021-03-04 22:09:48* Test Item Value Reference Range Interpretation Comme nts POCT GLU (test code = 1088091362) 135 mg/dL 70-110 H Lab Interpretation (test cod e = 04693-5) Abnormal [facility] GLUCOSE (AUTOMATED)2021-03-04 17:24:54* Test Item Value Reference Range Interpretation Comme nts POCT GLU (test code = 5601402032) 160 mg/dL 70-110 H Lab Interpretation (test cod e = 36186-6) [facility] Test Item Value Reference Range Interpretation Comme nts MAGNESIUM (test code = 5836057506) 2.4 mg/dL 1.7-2.4 Lab Interpretation (test cod e = 64835-2) Normal [facility] METABOLIC PANEL (NA, K, CL, CO2, GLUCOSE, BUN, CREATININE, CA)2021-03-04 17:19:52* Test Item Value Reference Range Interpretation Comme nts NA (test code = 2571611507) 136 mmol/L 135-145 K (test code = 2234538335) 4.6 mmol/L 3.5-5.0 CL (test code = 0123235300) 101 mmol/L 98-108 CO2 TOTAL (test code = 7630553707) 27 mmol/L 23-31 AGAP (test code = 6993911118) 2-16 BUN (test code = 9831607739) 8 mg/dL 7-23 GLUCOSE (test code = 1253873874) 125 mg/dL 70-110 H CREATININE (test code = 1663765309) 0.62 mg/dL 0.60-1.25 CALCIUM (test code = 1775409105) 8.8 mg/dL 8.6-10.6 eGFR (test code = 7812728476) mL/min/1.73m2 CATALINA (test code = CATALINA) Association [...] imaging tests). Lab Interpretation (test code = 86549-9) Abnormal [facility] WITH [id number] 15:00:40* Test Item Value Reference Range Interpretation [...] 31.6 g/dL 31.2-35.0 RDW-SD (test code = 39303-6) 45.4 fL 38.5-51.6 RDW-CV (test code = 788-0) 13.7 % 12.1-15.4 PLT (test code = 777-3) See_Comment H [Automated message] The system which generated this result transmitted reference range: 150 - 328 10*3/?L. The reference range was not used to interpret this result as normal/abnormal. MPV (test code = 69023-3) 10.5 fL 9.8-13.0 NRBC/100 WBC (test code = 9790724563) See_Comment [Automated message] The system which generated this result transmitted reference range: 0.0 - 10.0 /100 WBCs. The reference range was not used to interpret this result as normal/abnormal. NRBC x10^3 (test code = 3179968341) <0.01 See_Comment [Automated message] The system which generated this result transmitted reference range: 10*3/?L. The reference range was not used to interpret this result as normal/abnormal. GRAN MAT (NEUT) % (test code = 770-8) 69.9 % IMM GRAN % (test code = 5682401010) 5.20 % LYMPH % (test code = 736-9) 15.4 % MONO % (test code = 5905-5) 8.0 % EOS % (test code = 713-8) 1.0 % BASO % (test code = 706-2) 0.5 % GRAN MAT x10^3(ANC) (test code = 9966457651) 10.31 10*3/uL 1.99-6.95 H IMM GRAN x10^3 (test code = 6059571134) 0.77 10*3/uL 0.00-0.06 H LYMPH x10^3 (test [...] result as normal/abnormal. BANDS (test code = 3657026849) Increased A REACT LYMPHS (test code = 5162614025) Rare TOXIC CHANGES (test code = 803-7) Present A GIANT PLATELETS (test code = 5908-9) Present See_Comment A [Automated message] The system which generated this result transmitted reference range: (none). The reference range was not used to interpret this result as normal/abnormal. Lab Interpretation (test code = 92680-8) Abnormal [facility] GLUCOSE (AUTOMATED)2021-03-04 13:51:33* Test Item Value Reference Range Interpretation Comme [facility] POCT GLU (test code = 4623832810) 141 mg/dL 70-110 H Lab Interpretation (test cod e = 60308-0) Abnormal [facility] GLUCOSE (AUTOMATED)2021-03-03 18:21:58* Test Item Value Reference Range Interpretation Comme [facility] POCT GLU (test code = 0386796099) 190 mg/dL 70-110 H Lab Interpretation (test cod e = 74665-4) Abnormal [facility] WITH [id number] 14:30:04* Test Item Value Reference Range Interpretation [...] 33.1 g/dL 31.2-35.0 RDW-SD (test code = 15726-8) 44.2 fL 38.5-51.6 RDW-CV (test code = 788-0) 13.5 % 12.1-15.4 PLT (test code = 777-3) See_Comment H [Automated messa ge] The system which generated this result transmitted reference range: 150 - 328 10*3/?L. The reference range was not used to interpret this result as normal/abnormal. MPV (test code = 96566-3) 10.2 fL 9.8-13.0 NRBC/100 WBC (test code = 1361252871) See_Comment [Automated me ssage] The system which generated this result transmitted reference range: 0.0 - 10.0 /100 WBCs. The reference range was not used to interpret this result as normal/abnormal. NRBC x10^3 (test code = 5511285332) <0.01 See_Comment [Automated messa ge] The system which generated this result transmitted reference range: 10*3/?L. The reference range was not used to interpret this result as normal/abnormal. GRAN MAT (NEUT) % (test code = 770-8) 70.9 % IMM GRAN % (test code = 2808323564) 4.70 % LYMPH % (test code = 736-9) 13.5 % MONO % (test code = 5905-5) 9.2 % EOS % (test code = 713-8) 1.1 % BASO % (test code = 706-2) 0.6 % GRAN MAT x10^3(ANC) (test code = 3633645263) 9.90 10*3/uL 1.99-6.95 H IMM GRAN x10^3 (test code = 5911913409) 0.65 10*3/uL 0.00-0.06 H LYMPH x10^3 (test code = 731-0) 1.88 10*3/uL 1.09-3.23 MONO x10^3 (test code = 742-7) 1.28 10*3/uL 0.36-1.02 H EOS x10^3 (test code = 711-2) 0.15 10*3/uL 0.06-0.53 BASO x10^3 (test code = 704-7) 0.08 10*3/uL 0.01-0.09 BANDS (test code = 7182207944) Increased A TOXIC CHANGES (test code = 803-7) Present A Lab Interpretation (test code = 43102-5) Abnormal [facility] GLUCOSE (AUTOMATED)2021-03-03 13:45:39* Test Item Value Reference Range Interpretation Comme nts POCT GLU (test code = 6920531847) 144 mg/dL 70-110 H Lab Interpretation (test cod e = 80906-7) [facility] 13:32:13* Test Item Value Reference Range Interpretation Comme nts MAGNESIUM (test code = 5285608803) 2.3 mg/dL 1.7-2.4 Lab Interpretation (test cod e = 78299-1) [facility] (NA, K, CL, CO2, GLUCOSE, BUN, CREATININE, CA)2021-03-03 13:32:02* Test Item Value Reference Range Interpretation Comme nts NA (test code = 4591610857) 136 mmol/L 135-145 K (test code = 6126436450) 4.6 mmol/L 3.5-5.0 CL (test code = 8163273298) 104 mmol/L 98-108 CO2 TOTAL (test code = 2871735509) 24 mmol/L 23-31 AGAP (test code = 8061001275) 2-16 BUN (test code = 6769537915) 6 mg/dL 7-23 L GLUCOSE (test code = 8795858471) 134 mg/dL 70-110 H CREATININE (test code = 4526758055) 0.56 mg/dL 0.60-1.25 L CALCIUM (test code = 9845774592) 8.5 mg/dL 8.6-10.6 L eGFR (test code = 6932352071) mL/min/1.73m2 CATALINA (test code = CATALINA) Association [...] imaging tests). Lab Interpretation (test code = 71347-9) [facility] 13:31:50* Test Item Value Reference Range Interpretation Comme nts PHOSPHORUS (test code = 6056350170) 3.9 mg/dL 2.5-5.0 Lab Interpretation (test cod e = 51542-2) [facility] [id number] 06:01:53* Test Item Value Reference Range Interpretation Comme nts Blood Culture-Aerobic (test code = 14172-7) No organisms isolated No growth Previous preliminary [...] 010 CDT Blood Culture-Anaerobic (test code = 08040-9) No organisms isolated No growth Previous preliminary [...] 0101 CDT Lab Interpretation (test code = 50934-5) [facility] [id number] 06:01:53* Test Item Value Reference Range Interpretation Comme nts Blood Culture-Aerobic (test code = 70327-1) No organisms isolated No growth Previous preliminary [...] 0101 CDT Blood Culture-Anaerobic (test code = 26445-1) No organisms isolated No growth Previous preliminary [...] 0101 CDT Lab Interpretation (test code = 09881-9) Normal [facility] GLUCOSE (AUTOMATED)2021-03-03 02:26:32* Test Item Value Reference Range Interpretation Comme nts POCT GLU (test code = 4241121484) 155 mg/dL 70-110 H Notified Provide r Lab Interpretation (test code = 47681-4) Abnormal [facility] GLUCOSE (AUTOMATED)2021-03-02 22:38:32* Test Item Value Reference Range Interpretation Comme nts POCT GLU (test code = 0365861358) 122 mg/dL 70-110 H Lab Interpretation (test cod e = 33929-3) Abnormal [facility] GLUCOSE (AUTOMATED)2021-03-02 17:46:25* Test Item Value Reference Range Interpretation Comme nts POCT GLU (test code = 8629479809) 125 mg/dL 70-110 H Lab Interpretation (test cod e = 07889-3) [id number] 16:40:15* Test Item Value Reference Range Interpretation Comme nts SPUTUM CULTURE (test code = 622-1) 2+ Respiratory jeff: Commensal upper respiratory microorganisms only. Gram stain (test code = 664-3) Occasional (Rare) Mononuclear cells CATALINA (test code = CATALINA) Bacterial pathogens associated with lower respiratory infections were not identified, which include Pseudomonas aeruginosa and Staphylococcus aureus (MRSA or MSSA). [facility] WITH [id number] 15:16:38* Test Item Value Reference Range Interpretation [...] 32.9 g/dL 31.2-35.0 RDW-SD (test code = 80621-0) 44.9 fL 38.5-51.6 RDW-CV (test code = 788-0) 13.5 % 12.1-15.4 PLT (test code = 777-3) See_Comment [Automated messa ge] The system which generated this result transmitted reference range: 150 - 328 10*3/?L. The reference range was not used to interpret this result as normal/abnormal. MPV (test code = 64060-5) 10.9 fL 9.8-13.0 NRBC/100 WBC (test code = 0146129293) See_Comment [Automated me ssage] The system which generated this result transmitted reference range: 0.0 - 10.0 /100 WBCs. The reference range was not used to interpret this result as normal/abnormal. NRBC x10^3 (test code = 0862616801) <0.01 See_Comment [Automated messa ge] The system which generated this result transmitted reference range: 10*3/?L. The reference range was not used to interpret this result as normal/abnormal. GRAN MAT (NEUT) % (test code = 770-8) 73.0 % IMM GRAN % (test code = 1187528291) 2.80 % LYMPH % (test code = 736-9) 12.6 % MONO % (test code = 5905-5) 9.4 % EOS % (test code = 713-8) 1.7 % BASO % (test code = 706-2) 0.5 % GRAN MAT x10^3(ANC) (test code = 5180581672) 9.28 10*3/uL 1.99-6.95 H IMM GRAN x10^3 (test code = 4692403264) 0.36 10*3/uL 0.00-0.06 H LYMPH x10^3 (test [...] result as normal/abnormal. BANDS (test code = 9958129271) Increased A DOHLE BODIES (test code = 7792-5) Present A REACT LYMPHS (test code = 0826211547) Rare TOXIC CHANGES (test code = 803-7) Present A Lab Interpretation (test code = 54633-3) Abnormal [facility] GLUCOSE (AUTOMATED)2021-03-02 13:57:34* Test Item Value Reference Range Interpretation Comme nts POCT GLU (test code = 6744269067) 136 mg/dL 70-110 H Lab Interpretation (test cod e = 40482-0) [facility] 13:38:29* Test Item Value Reference Range Interpretation Comme nts POCT GLU (test code = 0274814827) 138 mg/dL 70-110 H Lab Interpretation (test cod e = 56213-8) Abnormal [facility]. METABOLIC PANEL (99244)2021-03-02 12:01:14* Test Item Value Reference Range Interpretation Comme nts NA (test code = 2315012441) 139 mmol/L 135-145 K (test code = 2283409338) 3.2 mmol/L 3.5-5.0 L CL (test code = 0366676489) 113 mmol/L 98-108 H CO2 TOTAL (test code = 4519748849) 21 mmol/L 23-31 L AGAP (test code = 7523130457) 2-16 BUN (test code = 7246294544) 4 mg/dL 7-23 L GLUCOSE (test code = 3589727451) 102 mg/dL 70-110 CREATININE (test code = 9800562974) 0.43 mg/dL 0.60-1.25 L TOTAL BILI (test code = 4931818950) 0.6 mg/dL 0.1-1.1 CALCIUM (test code = 1187058823) 6.2 mg/dL 8.6-10.6 L T PROTEIN (test code = 9327585746) 4.4 g/dL 6.3-8.2 L ALBUMIN (test code = 6125211629) 2.0 g/dL 3.5-5.0 L ALK PHOS (test code = 9289024281) 131 U/L 34-122 H ALTv (test code = 1742-6) 23 U/L 5-50 AST(SGOT) (test code = 6133477235) 29 U/L 13-40 eGFR (test code = 0941101640) mL/min/1.73m2 CATALINA (test code = CATALINA) Association [...] imaging tests). Lab Interpretation (test code = 38230-7) Abnormal [facility] GLUCOSE (AUTOMATED)2021-03-02 04:00:42* Test Item Value Reference Range Interpretation Comme nts POCT GLU (test code = 9422803436) 186 mg/dL 70-110 H Lab Interpretation (test cod e = 53825-3) Abnormal [facility] GLUCOSE (AUTOMATED)2021-03-01 23:00:33* Test Item Value Reference Range Interpretation Comme nts POCT GLU (test code = 0092064477) 130 mg/dL 70-110 H Lab Interpretation (test cod e = 25654-2) Abnormal [facility] GLUCOSE (AUTOMATED)2021-03-01 18:02:15* Test Item Value Reference Range Interpretation Comme nts POCT GLU (test code = 1011967020) 166 mg/dL 70-110 H Lab Interpretation (test cod e = 50643-8) [facility]21-[facility] 11:26:40* Test Item Value Reference Range Interpretation Comme nts MAGNESIUM (test code = 3375507911) 2.4 mg/dL 1.7-2.4 Lab Interpretation (test cod e = 96721-9) [facility] MET[facility]OLIC [facility] (NA, K, CL, CO2, GLUCOSE, BUN, CREATININE, CA)2021-03-01 11:26:19* Test Item Value Reference Range Interpretation Comme nts NA (test code = 8317858943) 134 mmol/L 135-145 L K (test code = 8872871844) 4.0 mmol/L 3.5-5.0 CL (test code = 3484896057) 99 mmol/L 98-108 CO2 TOTAL (test code = 1428222000) 26 mmol/L 23-31 AGAP (test code = 2608362723) 2-16 BUN (test code = 6907740687) 7 mg/dL 7-23 GLUCOSE (test code = 9451590496) 161 mg/dL 70-110 H CREATININE (test code = 4260385360) 0.69 mg/dL 0.60-1.25 CALCIUM (test code = 4332351681) 8.4 mg/dL 8.6-10.6 L eGFR (test code = 1603873166) mL/min/1.73m2 CATALINA (test code = CATALINA) Association [...] imaging tests). Lab Interpretation (test code = 25647-6) [facility]2021-[facility] 11:26:19* Test Item Value Reference Range Interpretation Comme nts PHOSPHORUS (test code = 0916623835) 3.2 mg/dL 2.5-5.0 Lab Interpretation (test cod e = 92110-3) [facility] [id number] 11:16:45* Test Item Value Reference Range Interpretation [...] 32.9 g/dL 31.2-35.0 RDW-SD (test code = 90428-4) 42.1 fL 38.5-51.6 RDW-CV (test code = 788-0) 13.2 % 12.1-15.4 PLT (test code = 777-3) See_Comment H [Automated message] The system which generated this result transmitted reference range: 150 - 328 10*3/?L. The reference range was not used to interpret this result as normal/abnormal. MPV (test code = 39120-9) 10.3 fL 9.8-13.0 NRBC/100 WBC (test code = 5815125029) See_Comment [Automated message] The system which generated this result transmitted reference range: 0.0 - 10.0 /100 WBCs. The reference range was not used to interpret this result as normal/abnormal. NRBC x10^3 (test code = 7006560057) <0.01 See_Comment [Automated message] The system which generated this result transmitted reference range: 10*3/?L. The reference range was not used to interpret this result as normal/abnormal. GRAN MAT (NEUT) % (test code = 770-8) 78.5 % IMM GRAN % (test code = 8974234381) 1.60 % LYMPH % (test code = 736-9) 8.7 % MONO % (test code = 5905-5) 9.8 % EOS % (test code = 713-8) 1.0 % BASO % (test code = 706-2) 0.4 % GRAN MAT x10^3(ANC) (test code = 6145569302) 12.22 10*3/uL 1.99-6.95 H IMM GRAN x10^3 (test code = 7643169304) 0.25 10*3/uL 0.00-0.06 H LYMPH x10^3 (test code = 731-0) 1.36 10*3/uL 1.09-3.23 MONO x10^3 (test code = 742-7) 1.53 10*3/uL 0.36-1.02 H EOS x10^3 (test code = 711-2) 0.15 10*3/uL 0.06-0.53 BASO x10^3 (test code = 704-7) 0.07 10*3/uL 0.01-0.09 BANDS (test code = 8369855719) Increased A TOXIC CHANGES (test code = 803-7) Present A GIANT PLATELETS (test code = 5908-9) Present See_Comment A [Automated message] The system which generated this result transmitted reference range: (none). The reference range was not used to interpret this result as normal/abnormal. Lab Interpretation (test code = 93897-9) Abnormal [facility] GLUCOSE (AUTOMATED)2021-03-01 01:33:17* Test Item Value Reference Range Interpretation Comme nts POCT GLU (test code = 9334067784) 173 mg/dL 70-110 H Lab Interpretation (test cod e = 81724-9) Abnormal [facility] GLUCOSE (AUTOMATED)2021-02-28 22:14:15* Test Item Value Reference Range Interpretation Comme nts POCT GLU (test code = 1517657030) 136 mg/dL 70-110 H Lab Interpretation (test cod e = 00495-2) Abnormal [facility] GLUCOSE (AUTOMATED)2021-02-28 22:10:43* Test Item Value Reference Range Interpretation Comme nts POCT GLU (test code = 6927831565) 158 mg/dL 70-110 H Lab Interpretation (test cod e = 74580-2) Abnormal [facility] GLUCOSE (AUTOMATED)2021-02-28 16:49:37* Test Item Value Reference Range Interpretation Comme nts POCT GLU (test code = 5988993122) 161 mg/dL 70-110 H Lab Interpretation (test cod e = 92331-4) Abnormal [facility] WITH [id number] 13:12:42* Test Item Value Reference Range Interpretation [...] 32.4 g/dL 31.2-35.0 RDW-SD (test code = 17593-7) 42.9 fL 38.5-51.6 RDW-CV (test code = 788-0) 13.0 % 12.1-15.4 PLT (test code = 777-3) See_Comment [Automated message] The system which generated this result transmitted reference range: 150 - 328 10*3/?L. The reference range was not used to interpret this result as normal/abnormal. MPV (test code = 23466-4) 10.1 fL 9.8-13.0 NRBC/100 WBC (test code = 8706747324) See_Comment [Automated message] The system which generated this result transmitted reference range: 0.0 - 10.0 /100 WBCs. The reference range was not used to interpret this result as normal/abnormal. NRBC x10^3 (test code = 5309593125) <0.01 See_Comment [Automated message] The system which generated this result transmitted reference range: 10*3/?L. The reference range was not used to interpret this result as normal/abnormal. GRAN MAT (NEUT) % (test code = 770-8) 77.6 % IMM GRAN % (test code = 9404122742) 1.40 % LYMPH % (test code = 736-9) 9.7 % MONO % (test code = 5905-5) 10.1 % EOS % (test code = 713-8) 0.7 % BASO % (test code = 706-2) 0.5 % GRAN MAT x10^3(ANC) (test code = 8545853171) 11.63 10*3/uL 1.99-6.95 H IMM GRAN x10^3 (test code = 0405052698) 0.21 10*3/uL 0.00-0.06 H LYMPH x10^3 (test [...] result as normal/abnormal. BANDS (test code = 2268901660) Increased A TOXIC CHANGES (test code = 803-7) Present A GIANT PLATELETS (test code = 5908-9) Present See_Comment A [Automated message] The system which generated this result transmitted reference range: (none). The reference range was not used to interpret this result as normal/abnormal. Lab Interpretation (test code = 40232-2) Abnormal [facility]. METABOLIC PANEL (45624)2021-02-28 12:13:05* Test Item Value Reference Range Interpretation Comme nts NA (test code = 3092030633) 133 mmol/L 135-145 L K (test code = 2896382827) 4.2 mmol/L 3.5-5.0 CL (test code = 7177260054) 100 mmol/L 98-108 CO2 TOTAL (test code = 5519250904) 26 mmol/L 23-31 AGAP (test code = 1071094694) 2-16 BUN (test code = 3767073130) 8 mg/dL 7-23 GLUCOSE (test code = 2043268916) 143 mg/dL 70-110 H CREATININE (test code = 4529359669) 0.70 mg/dL 0.60-1.25 TOTAL BILI (test code = 9279188732) 1.4 mg/dL 0.1-1.1 H CALCIUM (test code = 3439630216) 8.5 mg/dL 8.6-10.6 L T PROTEIN (test code = 5801559860) 5.7 g/dL 6.3-8.2 L ALBUMIN (test code = 1220785793) 3.0 g/dL 3.5-5.0 L ALK PHOS (test code = 4106783711) 111 U/L 34-122 ALTv (test code = 1742-6) 16 U/L 5-50 AST(SGOT) (test code = 7316319481) 20 U/L 13-40 eGFR (test code = 8010401955) mL/min/1.73m2 CATALINA (test code = CATALINA) Association [...] imaging tests). Lab Interpretation (test code = 78521-7) Abnormal [facility] GLUCOSE (AUTOMATED)2021-02-28 02:31:48* Test Item Value Reference Range Interpretation Comme nts POCT GLU (test code = 9582881807) 206 mg/dL 70-110 H Lab Interpretation (test cod e = 39590-6) [facility] 2021-02-28 00:49:25* Test Item Value Reference Range Interpretation Comme nts Mycobacterium tuberculosis D NA (test code = 18941-5) Negative Negative Lab Interpretation (test cod e = 38889-3) Normal [facility] GLUCOSE (AUTOMATED)2021-02-27 22:30:13* Test Item Value Reference Range Interpretation Comme nts POCT GLU (test code = 9702804455) 160 mg/dL 70-110 H Lab Interpretation (test cod e = 09840-6) [facility]normal [facility] Tub[facility] PCR 2021-02-27 18:36:53* Test Item Value Reference Range Interpretation Comme nts Mycobacterium tuberculosis DNA (test code = 48883-4) Negative Negative CATALINA (test code = CATALINA) MTB PCR testing delayed due to inadequate specimen. Lab Interpretation (test code = 38766-1) Normal [facility] GLUCOSE (AUTOMATED)2021-02-27 16:47:54* Test Item Value Reference Range Interpretation Comme nts POCT GLU (test code = 4472694044) 185 mg/dL 70-110 H Lab Interpretation (test cod e = 60847-5) Abnormal [facility] GLUCOSE (AUTOMATED)2021-02-27 13:10:59* Test Item Value Reference Range Interpretation Comme nts POCT GLU (test code = 8523498914) 140 mg/dL 70-110 H Lab Interpretation (test cod e = 11194-0) Abnormal [facility] GLUCOSE (AUTOMATED)2021-02-27 11:09:43* Test Item Value Reference Range Interpretation Comme nts POCT GLU (test code = 9267401614) 120 mg/dL 70-110 H Lab Interpretation (test cod e = 38378-8) [facility]normal [facility] Trough Level - Draw within 30 minutes prior to 3RD dose.2021-02-27 08:29:58* Test Item Value Reference Range Interpretation Comme nts VANCO TROUGH (test code = 1527377294) <5.0 10.0-20.0 L CATALINA (test code = CATALINA) Toxic Range: ?>20 ug/mL 15-20 ug/mL is recommended for severe infection or when Vancomycin TYLER is greater than or equal to 2. Lab Interpretation (test code = 86649-3) Abnormal [facility]. METABOLIC PANEL (54126)2021-02-27 08:17:18* Test Item Value Reference Range Interpretation Comme nts NA (test code = 1965244607) 132 mmol/L 135-145 L K (test code = 6572851929) 4.2 mmol/L 3.5-5.0 CL (test code = 1579900457) 99 mmol/L 98-108 CO2 TOTAL (test code = 2181873854) 24 mmol/L 23-31 AGAP (test code = 2465772688) 2-16 BUN (test code = 6264908466) 10 mg/dL 7-23 GLUCOSE (test code = 5749673151) 137 mg/dL 70-110 H CREATININE (test code = 2592365222) 0.81 mg/dL 0.60-1.25 TOTAL BILI (test code = 3528902595) 1.5 mg/dL 0.1-1.1 H CALCIUM (test code = 6038114021) 8.6 mg/dL 8.6-10.6 T PROTEIN (test code = 9499664212) 6.1 g/dL 6.3-8.2 L ALBUMIN (test code = 4197933651) 3.3 g/dL 3.5-5.0 L ALK PHOS (test code = 6428419277) 94 U/L 34-122 ALTv (test code = 1742-6) 19 U/L 5-50 AST(SGOT) (test code = 0640958395) 16 U/L 13-40 eGFR (test code = 8379104548) mL/min/1.73m2 CATALINA (test code = CATALINA) Association [...] imaging tests). Lab Interpretation (test code = 78831-3) [facility] 08:17:18* Test Item Value Reference Range Interpretation Comme nts MAGNESIUM (test code = 4131684364) 2.1 mg/dL 1.7-2.4 Lab Interpretation (test cod e = 39595-2) [facility] 08:16:57* Test Item Value Reference Range Interpretation Comme nts PHOSPHORUS (test code = 2299986004) 2.6 mg/dL 2.5-5.0 Lab Interpretation (test cod e = 47308-1) [facility] [id number] 07:51:35* Test Item Value Reference Range Interpretation [...] 32.3 g/dL 31.2-35.0 RDW-SD (test code = 47232-7) 42.4 fL 38.5-51.6 RDW-CV (test code = 788-0) 12.8 % 12.1-15.4 PLT (test code = 777-3) See_Comment [Automated message] The system which generated this result transmitted reference range: 150 - 328 10*3/?L. The reference range was not used to interpret this result as normal/abnormal. MPV (test code = 43456-4) 10.2 fL 9.8-13.0 NRBC/100 WBC (test code = 0101387924) See_Comment [Automated message] The system which generated this result transmitted reference range: 0.0 - 10.0 /100 WBCs. The reference range was not used to interpret this result as normal/abnormal. NRBC x10^3 (test code = 9307399220) <0.01 See_Comment [Automated message] The system which generated this result transmitted reference range: 10*3/?L. The reference range was not used to interpret this result as normal/abnormal. GRAN MAT (NEUT) % (test code = 770-8) 78.1 % IMM GRAN % (test code = 7275013927) 1.70 % LYMPH % (test code = 736-9) 10.0 % MONO % (test code = 5905-5) 9.5 % EOS % (test code = 713-8) 0.4 % BASO % (test code = 706-2) 0.3 % GRAN MAT x10^3(ANC) (test code = 0716432110) 11.88 10*3/uL 1.99-6.95 H IMM GRAN x10^3 (test code = 3451961025) 0.26 10*3/uL 0.00-0.06 H LYMPH x10^3 (test code = 731-0) 1.52 10*3/uL 1.09-3.23 MONO x10^3 (test code = 742-7) 1.45 10*3/uL 0.36-1.02 H EOS x10^3 (test code = 711-2) 0.06 10*3/uL 0.06-0.53 BASO x10^3 (test code = 704-7) 0.04 10*3/uL 0.01-0.09 Lab Interpretation (test code = 30821-8) Abnormal [facility] GLUCOSE (AUTOMATED)2021-02-27 05:06:59* Test Item Value Reference Range Interpretation Comme [facility] POCT GLU (test code = 4765794784) 131 mg/dL 70-110 H Notified Provide r Lab Interpretation (test code = 14249-9) Abnormal [facility] GLUCOSE (AUTOMATED)2021-02-27 00:23:21* Test Item Value Reference Range Interpretation Comme [facility] POCT GLU (test code = 3290017476) 146 mg/dL 70-110 H Notified Provide r Lab Interpretation (test code = 76736-9) Abnormal [facility]ham[facility]ITAMIN B12, [id number] 21:40:03* Test Item Value Reference Range Interpretation Comme nts VIT B12 (test code = 7861143033) 226 pg/mL 240-930 L CATALINA (test code = CATALINA) Biotin has been reported to cause a positive bias, interpret results relative to patient's use of biotin. Lab Interpretation (test code = 35346-5) [facility]normal [facility]hamHIV 1/2 AG-AB WITH [id number] 20:46:32* Test Item Value Reference Range Interpretation Comme [facility] HIV Semi-quantitative (test code = 14805-1) Negative Negative CATALINA (test code = CATALINA) Non-reactive for HIV-1 antigen and HIV-1/HIV-2 antibodies. ?No laboratory evidence of HIV infection. ?Repeat in 2-4 weeks if acute HIV infection is suspected. [facility]hamBODY FLUID MANUAL [id number] 19:54:40* Test Item Value Reference Range Interpretation Comme nts BF SEGS% (test code = 68372-0) 85 % BF LYMPHS% (test code = 22443-9) 3 % BF MACROPHAGE% (test code = 30673-3) 10 % BF MESOS% (test code = 95618-1) 1 % BF EOS% (test code = 10919-6) 1 % BF #CELLS CNTD (test code = 3111280514) cells/u L [facility] BrenhamDIFF CONSULT [id number] 19:18:36 LEUKOCYTOSIS WITH ABSOLUTE NEUTROPHILIA, MONOCYTOSIS, AND EOSINOPENIA. NO INCREASE IN BLASTS IDENTIFIED. ERYTHROCYTES ARE UNREMARKABLE. MILD THROMBOCYTOSIS.[facility] BrenhamLACTATE [id number] 18:57:19* Test Item Value Reference Range Interpretation Comme nts LDH (test code = 4309457768) 469 U/L 300-600 Lab Interpretation (test cod e = 24466-3) Normal [facility] BrenhamBODY FLUID DIRECT [id number] 18:17:32* Test Item Value Reference Range Interpretation Comme nts BF COLOR (test code = 5512202546) Slightly Bloody BF WBC Count (test code = 8667673710) See_Comment [Automated [employer]] The system which generated this result transmitted reference range: /?L. The reference range was not used to interpret this result as normal/abnormal. BF RBC Count (test code = 9055057817) See_Comment [Automated [employer]] The system which generated this result transmitted reference range: /?L. The reference range was not used to interpret this result as normal/abnormal. CATALINA (test code = CATALINA) The reference range and other method performance specifications have not been established for this body fluid. ?The test results must be integrated into the clinical context for interpretation. [facility] BrenhamC-REACTIVE [id number] 18:04:06* Test Item Value Reference Range Interpretation Comme nts CRP (test code = 1649820127) 39.3 mg/dL <0.8 H Lab Interpretation (test cod e = 72006-3) Abnormal [facility] BrenhamPROCALCITONIN2021-11-04 17:18:51* Test Item Value Reference Range Interpretation Comme nts Procalcitonin (test code = 8108530995) 4.49 ng/mL <0.07 H CATALINA (test code [...] lung abscess/empyema. For further information please refer to:[email or web address] Lab Interpretation (test code = 36415-5) Abnormal [facility]hamPOCT GLUCOSE (AUTOMATED)2021-02-26 16:56:13* Test Item Value Reference Range Interpretation Comme nts POCT GLU (test code = 7052631298) 156 mg/dL 70-110 H Lab Interpretation (test cod e = 53881-6) Abnormal [facility]hamVITAMIN D, [id number] 16:35:49* Test Item Value Reference Range Interpretation Comme nts VIT D 25OH (test code = 33715-2) <13 25-80 L CATALINA (test code = CATALINA) Deficiency: <20 ng/mLInsufficiency: 20-24 ng/mLOptimal: 25-80 ng/mL Lab Interpretation (test code = 69844-2) Abnormal [facility] BrenhamFERRITIN [id number] 16:15:43* Test Item Value Reference Range Interpretation Comme nts FERRITIN (test code = 7148091514) 257.0 ng/mL 18.0-464.0 CATALINA (test code = CATALINA) Biotin has been reported to cause a negative bias, interpret results relative to patient's use of biotin. Lab Interpretation (test code = 40065-8) Normal [facility]hamTHYROID STIMULATING [id number] 16:11:43 * Test Item Value Reference Range Interpretation Comme nts TSH (test code = 6142636769) See_Comment H [Automated [employer]] The system which generated this result transmitted reference range: 0.45 - 4.70 mIU/L. The reference range was not used to interpret this result as normal/abnormal. Lab Interpretation (test code = 19267-5) Abnormal [facility] BrenhamIRON [id number] 15:46:18* Test Item Value Reference Range Interpretation Comme nts IRON (test code = 8748125388) 31 ug/dL 50-160 L TIBC (test code = 8931997899) 239 ug/dL 250-410 L % FE SAT (test code = 9397233527) 13 % 20-50 L Lab Interpretation (test cod e = 14522-1) Abnormal [facility] BrenhamLIPID PANEL (66045)(TOTAL CHOLESTEROL, TRIGLYCERIDES, HDL)2021-02-26 15:37:39* Test Item Value Reference Range Interpretation Comme nts CHOL (test code = 6234993117) 124 mg/dL 120-200 HDL (test code = 3100086999) 25 mg/dL >40 L HDLC RATIO (test code = 9745573066) See_Comment [Automated [employer]] The system which generated this result transmitted reference range: <=5.0. The reference range was not used to interpret this result as normal/abnormal. TRIG (test code = 0717733592) 144 mg/dL 30-170 LDL CHOL (test code = 25848-2) 70 mg/dL See_Comment [Automated [employer]] The system which generated this result transmitted reference range: <=160. The reference range was not used to interpret this result as normal/abnormal. VLDL (test code = 2603205146) 29 mg/dL 5-60 Lab Interpretation (test code = 51283-3) Abnormal [facility] BrenhamURIC [id number] 15:37:19* Test Item Value Reference Range Interpretation Comme nts URIC ACID (test code = 0811418906) 5.1 mg/dL 3.6-8.0 Lab Interpretation (test cod e = 51096-0) Normal [facility] BrenhamAMYLASE2021-11-04 15:36:58* Test Item Value Reference Range Interpretation Comme nts MARIA ELENA (test code = 1064854846) 38 U/L 35-110 Lab Interpretation (test cod e = 46461-2) Normal [facility]hamPOCT GLUCOSE (AUTOMATED)2021-02-26 14:26:57* Test Item Value Reference Range Interpretation Comme nts POCT GLU (test code = 2773371182) 163 mg/dL 70-110 H Lab Interpretation (test cod e = 33459-9) Abnormal [facility] BrenhamProtein Total [id number] 13:47:57* Test Item Value Reference Range Interpretation Comme nts T PROTEIN (test code = 8509937896) 6.1 g/dL 6.3-8.2 L Lab Interpretation (test cod e = 88030-7) Abnormal [facility] BrenhamMagnesium [id number] 11:57:09* Test Item Value Reference Range Interpretation Comme nts MAGNESIUM (test code = 0399847778) 1.9 mg/dL 1.7-2.4 Lab Interpretation (test cod e = 63908-0) Normal [facility] BrenhamCOMP. METABOLIC PANEL (62185)2021-02-26 11:56:54* Test Item Value Reference Range Interpretation Comme nts NA (test code = 3749247215) 132 mmol/L 135-145 L K (test code = 1871705826) 4.1 mmol/L 3.5-5.0 CL (test code = 8171151402) 99 mmol/L 98-108 CO2 TOTAL (test code = 3020068904) 24 mmol/L 23-31 AGAP (test code = 6810216391) 2-16 BUN (test code = 8995717125) 10 mg/dL 7-23 GLUCOSE (test code = 6436888059) 182 mg/dL 70-110 H CREATININE (test code = 6234796721) 0.81 mg/dL 0.60-1.25 TOTAL BILI (test code = 7835115959) 1.2 mg/dL 0.1-1.1 H CALCIUM (test code = 3982622732) 8.5 mg/dL 8.6-10.6 L T PROTEIN (test code = 4262979746) 6.1 g/dL 6.3-8.2 L ALBUMIN (test code = 4111662000) 3.4 g/dL 3.5-5.0 L ALK PHOS (test code = 9486187716) 86 U/L 34-122 ALTv (test code = 1742-6) 25 U/L 5-50 AST(SGOT) (test code = 7928315304) 15 U/L 13-40 eGFR (test code = 4264369108) mL/min/1.73m2 CATALINA (test code = CATALINA) Association [...] imaging tests). Lab Interpretation (test code = 25059-4) Abnormal [facility] BrenhamTROPONIN [id number] 11:51:29* Test Item Value Reference Range Interpretation Comments TROPONIN I (test code = 8547425962) 0.001 ng/mL See_Comment [Automated message] The system [...] of biotin. Lab Interpretation (test code = 84897-5) Normal [facility] BrenhamN-TERMINAL [id number] 11:48:52* Test Item Value Reference Range Interpretation Comme nts NT-proBNP (test code = 7062412074) 61 pg/mL See_Comment [Automated message] The system which generated this result transmitted reference range: <=125. The reference range was not used to interpret this result as normal/abnormal. CATALINA (test code = CATALINA) Biotin has been reported to cause a negative bias, interpret results relative to patient's use of biotin. Lab Interpretation (test code = 43057-9) Normal [facility] with [id number] 11:08:26* Test Item Value Reference Range Interpretation [...] 33.2 g/dL 31.2-35.0 RDW-SD (test code = 36894-0) 40.2 fL 38.5-51.6 RDW-CV (test code = 788-0) 12.7 % 12.1-15.4 PLT (test code = 777-3) See_Comment H [Automated message] The system which generated this result transmitted reference range: 150 - 328 10*3/?L. The reference range was not used to interpret this result as normal/abnormal. MPV (test code = 50156-2) 10.2 fL 9.8-13.0 NRBC/100 WBC (test code = 2277612892) See_Comment [Automated message] The system which generated this result transmitted reference range: 0.0 - 10.0 /100 WBCs. The reference range was not used to interpret this result as normal/abnormal. NRBC x10^3 (test code = 1176050433) <0.01 See_Comment [Automated message] The system which generated this result transmitted reference range: 10*3/?L. The reference range was not used to interpret this result as normal/abnormal. GRAN MAT (NEUT) % (test code = 770-8) 79.1 % IMM GRAN % (test code = 5754058280) 0.60 % LYMPH % (test code = 736-9) 10.0 % MONO % (test code = 5905-5) 9.6 % EOS % (test code = 713-8) 0.3 % BASO % (test code = 706-2) 0.4 % GRAN MAT x10^3(ANC) (test code = 9613199989) 11.11 10*3/uL 1.99-6.95 H IMM GRAN x10^3 (test code = 9018069196) 0.09 10*3/uL 0.00-0.06 H LYMPH x10^3 (test code = 731-0) 1.40 10*3/uL 1.09-3.23 MONO x10^3 (test code = 742-7) 1.35 10*3/uL 0.36-1.02 H EOS x10^3 (test code = 711-2) 0.04 10*3/uL 0.06-0.53 L BASO x10^3 (test code = 704-7) 0.06 10*3/uL 0.01-0.09 Lab Interpretation (test code = 11692-1) Abnormal [facility] VENOUS BLOOD [id number] 06:40:24 * Test Item Value Reference Range Interpretation Comme nts PH (test code = 2186857675) 7.32-7.42 PCO2 MICHELLE (test code = 0990918031) See_Comment L [Automated messa ge] The system which generated this result transmitted reference range: 41 - 51 mmHg. The reference range was not used to interpret this result as normal/abnormal. PO2 MICHELLE (test code = 6768037805) See_Comment H [Automated messa ge] The system which generated this result transmitted reference range: 25 - 40 mmHg. The reference range was not used to interpret this result as normal/abnormal. HCO3 MICHELLE (test code = 6048633785) See_Comment [Automated messa ge] The system which generated this result transmitted reference range: 24 - 28 mEq/L. The reference range was not used to interpret this result as normal/abnormal. AC VBE(BEAKER) (test code = 1583662120) mEq/L Lab Interpretation (test code = 98415-8) Abnormal [facility]hamTROPONIN [id number] 05:46:11* Test Item Value Reference Range Interpretation Comments TROPONIN I (test code = 1887653421) 0.003 ng/mL See_Comment [Automated message] The system [...] of biotin. Lab Interpretation (test code = 31247-7) Normal [facility] BrenhamLANHATE [id number] 05:33:54* Test Item Value Reference Range Interpretation Comme nts LDH (test code = 2338032286) 427 U/L 300-600 Lab Interpretation (test cod e = 62992-9) Normal [facility] BrenhamSEDIMENTATION [id number] 05:31:01* Test Item Value Reference Range Interpretation Comme nts ESR (test code = 4016794966) See_Comment [Automated [employer] ge] The system which generated this result transmitted reference range: 0 - 10 mm/HR. The reference range was not used to interpret this result as normal/abnormal. Lab Interpretation (test code = 85305-1) [facility] [id number] 05:09:42* Test Item Value Reference Range Interpretation Comme nts LACTIC ACID (test code = 3695129528) 1.41 mmol/L 0.50-2.20 Lab Interpretation (test cod e = 74653-7) Normal [facility] BrenhamPONH GLUCOSE (AUTOMATED)2021-02-26 04:56:49* Test Item Value Reference Range Interpretation Comme nts POCT GLU (test code = 3856502262) 146 mg/dL 70-110 H Lab Interpretation (test cod e = 77858-7) Abnormal [facility] BrenhamGLYCOSYLATED HEMOGLOBIN (A1C)2021-02-26 04:38:39* Test Item Value Reference Range Interpretation Comme nts HGB A1C (test code = 4548-4) 6.8 % 4.0-5.7 H CATALINA (test code = CATALINA) Reference RangesNormal: <5.7%Prediabetes: 5.7 - 6.4%Diabetes: > 6.5% Lab Interpretation (test code = 72425-7) Abnormal [facility] BrenhamPhosphorus [id number] 02:43:30* Test Item Value Reference Range Interpretation Comme nts PHOSPHORUS (test code = 0273237552) 3.2 mg/dL 2.5-5.0 Lab Interpretation (test cod e = 47817-8) Normal [facility] BrenhamTROPONIN [id number] 17:37:48* Test Item Value Reference Range Interpretation Comments TROPONIN I (test code = 1472737591) 0.001 ng/mL See_Comment [Automated message] The system [...] of biotin. Lab Interpretation (test code = 21558-9) Normal [facility] BrenhamETHANOL2021-11-03 17:36:29* Test Item Value Reference Range Interpretation Comme nts ALCOHOL (test code = 5111080025) <10 mg/dL CATALINA (test code = CATALINA) <10 Ensccyiy09-723 Toxic>100 Depression of GUARD IMMIGRATION>400 Fatalities Reported [facility] BrenhamACETAMINOPHEN2021-11-03 17:36:29* Test Item Value Reference Range Interpretation Comme nts ACETAMINOP (test code = 3520097405) <10.0 10.0-30.0 L CATALINA (test code = CATALINA) Toxic: Greater stuart n 200 ug/mL @ 4 hour post ingestion or greater than 50 ug/mL @ 12 hour post ingestion Lab Interpretation (test code = 43057-9) Abnormal [facility] BrenhamN-TERMINAL [id number] 17:27:26* Test Item Value Reference Range Interpretation Comme nts NT-proBNP (test code = 2221779577) 66 pg/mL See_Comment [Automated message] The system which generated this result transmitted reference range: <=125. The reference range was not used to interpret this result as normal/abnormal. CATALINA (test code = CATALINA) Biotin has been reported to cause a negative bias, interpret results relative to patient's use of biotin. Lab Interpretation (test code = 27835-3) Normal [facility] BrenhamCOM. METABOLIC PANEL (49241)2021-02-25 17:26:45* Test Item Value Reference Range Interpretation Comme nts NA (test code = 7479646314) 135 mmol/L 135-145 K (test code = 2426056401) 4.3 mmol/L 3.5-5.0 CL (test code = 0254135600) 100 mmol/L 98-108 CO2 TOTAL (test code = 4192150416) 23 mmol/L 23-31 AGAP (test code = 6373759570) 2-16 BUN (test code = 0526868413) 9 mg/dL 7-23 GLUCOSE (test code = 9803755480) 147 mg/dL 70-110 H CREATININE (test code = 3280453829) 0.72 mg/dL 0.60-1.25 TOTAL BILI (test code = 0077237198) 1.2 mg/dL 0.1-1.1 H CALCIUM (test code = 6400795922) 9.2 mg/dL 8.6-10.6 T PROTEIN (test code = 1215181251) 7.3 g/dL 6.3-8.2 ALBUMIN (test code = 6385146689) 4.4 g/dL 3.5-5.0 ALK PHOS (test code = 1366834519) 90 U/L 34-122 ALTv (test code = 1742-6) 40 U/L 5-50 AST(SGOT) (test code = 5264674050) 28 U/L 13-40 eGFR (test code = 7604901905) mL/min/1.73m2 CATALINA (test code = CATALINA) Association [...] imaging tests). Lab Interpretation (test code = 25880-4) [facility] AyoddlZPZUTWMLPJ1990-40-98 17:26:45* Test Item Value Reference Range Interpretation Comme nts SALICYLATE (test code = 7709464624) 16 mg/L CATALINA (test code = CATALINA) Therapeutic Range: ? Analgesic and Antipyretic Use ? 20-100 mg/L ? ? Anti-Inflammatory Use ? 100-250 mg/L Toxic Range: ? Greater than 300 mg/L [facility] BrenhamLIPASE2021-11-03 17:26:30* Test Item Value Reference Range Interpretation Comme [facility] LIPASE (test code = 5000965121) 59 U/L 0-220 Lab Interpretation (test cod e = 60492-2) Normal [facility] BrenhamACTIVATED PARTIAL THRMPLAS [id number] 17:23:47* Test Item Value Reference Range Interpretation Comme [facility] APTT Patient (test code = 3173-2) See_Comment [Automated message] The system which generated this result transmitted reference range: 23 - 38 Seconds. The reference range was not used to interpret this result as normal/abnormal. CATALINA (test code = CATALINA) The [facility] patient population mean normal value for aPTT is 30 seconds. Lab Interpretation (test code = 18248-9) Normal [facility] BrenhamPROTHROMBIN TIME / [id number] 17:21:48* Test Item Value Reference Range Interpretation Comme [facility] PROTIME PATIENT (test code = 5964-2) See_Comment [Automated messa ge] The system which generated this result transmitted reference range: 12.0 - 14.7 Seconds. The reference range was not used to interpret this result as normal/abnormal. INR (test code = 6301-6) Normal INR <1.1; Warfarin Therapeutic range 2.0 to 3.0 or 2.5 to 3.5, depending upon the indications. Lab Interpretation (test code = 02246-1) Normal [facility] BrenhamAC PANEL 21 + LACTIC [id number] 16:45:09* Test Item Value Reference Range Interpretation Comme [facility] PH (test code = 3084394249) 7.32-7.42 PCO2 MICHELLE (test code = 8974497133) See_Comment L [Automated messa ge] The system which generated this result transmitted reference range: 41 - 51 mmHg. The reference range was not used to interpret this result as normal/abnormal. PO2 MICHELLE (test code = 1376672075) See_Comment [Automated messa ge] The system which generated this result transmitted reference range: 25 - 40 mmHg. The reference range was not used to interpret this result as normal/abnormal. HCO3 MICHELLE (test code = 3875886867) See_Comment [Automated messa ge] The system which generated this result transmitted reference range: 24 - 28 mEq/L. The reference range was not used to interpret this result as normal/abnormal. AC VBE(BEAKER) (test code = 9722527095) mEq/L THB MICHELLE (test code = 6663252569) 14.9 g/dL 13.5-18.0 %O2HB MICHELLE (test code = 0304136638) 62.7 % 52.0-63.0 %COHB MICHELLE (test code = 9515766999) 1.6 % 0.0-1.5 H %METHB MICHELLE (test code = 5775109758) 0.4 % 0.4-1.5 VOL%O2 MICHELLE (test code = 0701383198) 13.1 % 6.0-12.0 H NA (test code = 8550020054) 136 mmol/L 135-145 K+ (test code = 8882360295) 4.2 mmol/L 3.5-5.0 AC CA IONZ (test code = 0513471133) 4.30 mg/dL 4.50-5.30 L GLUCOSE (test code = 2297076919) 152 mg/dL 70-110 H LACTIC ACID (test code = 8180404425) 2.02 mmol/L 0.50-2.20 Lab Interpretation (test code = 90978-5) Abnormal [facility] WITH [id number] 16:43:42* Test Item Value Reference Range Interpretation [...] 33.6 g/dL 31.2-35.0 RDW-SD (test code = 42664-1) 38.5 fL 38.5-51.6 RDW-CV (test code = 788-0) 12.2 % 12.1-15.4 PLT (test code = 777-3) See_Comment H [Automated messa ge] The system which generated this result transmitted reference range: 150 - 328 10*3/?L. The reference range was not used to interpret this result as normal/abnormal. MPV (test code = 64119-6) 10.0 fL 9.8-13.0 NRBC/100 WBC (test code = 6697832693) See_Comment [Automated [employer] (f[employer]) ssage] The system which generated this result transmitted reference range: 0.0 - 10.0 /100 WBCs. The reference range was not used to interpret this result as normal/abnormal. NRBC x10^3 (test code = 2092544469) <0.01 See_Comment [Automated messa ge] The system which generated this result transmitted reference range: 10*3/?L. The reference range was not used to interpret this result as normal/abnormal. GRAN MAT (NEUT) % (test code = 770-8) 75.9 % IMM GRAN % (test code = 4842540514) 0.50 % LYMPH % (test code = 736-9) 11.6 % MONO % (test code = 5905-5) 11.6 % EOS % (test code = 713-8) 0.1 % BASO % (test code = 706-2) 0.3 % GRAN MAT x10^3(ANC) (test code = 9061101522) 8.99 10*3/uL 1.99-6.95 H IMM GRAN x10^3 (test code = 8507854743) 0.06 10*3/uL 0.00-0.06 LYMPH x10^3 (test code = 731-0) 1.38 10*3/uL 1.09-3.23 MONO x10^3 (test code = 742-7) 1.38 10*3/uL 0.36-1.02 H EOS x10^3 (test code = 711-2) <0.03 0.06-0.53 L BASO x10^3 (test code = 704-7) 0.04 10*3/uL 0.01-0.09 Lab Interpretation (test code = 11407-2) Abnormal [facility]hamCT ABDOMEN PELVIS W [id number] 23:44:31Impression: No acute abdominal or pelvic pathology. [...] right inguinal hernia.Normal appendix.RL 460End of report. [facility] Metabolic Panel (NA, K, CL, CO2, GLUCOSE, BUN, CREATININE, CA)2020-06-19 22:32:00* Test Item Value Reference Range Interpretation Comme nts NA (test code = 8725503981) 141 mmol/L 135-145 K (test code = 3789971279) 3.9 mmol/L 3.5-5 CL (test code = 7859951015) 104 mmol/L 98-108 CO2 TOTAL (test code = 4420044816) 29 mmol/L 23-31 AGAP (test code = 0528654429) 2-16 BUN (test code = 2918433567) 14 mg/dL 7-23 GLUCOSE (test code = 4491341604) 115 mg/dL 70-110 H CREATININE (test code = 0351952942) 0.73 mg/dL 0.6-1.25 CALCIUM (test code = 5569001715) 9.4 mg/dL 8.6-10.6 eGFR Calculation (Non-) (test code = 6520267366) mL/min/1.73m2 eGFR Calculation () (test code = 9878467638) mL/min/1.73m2 CATALINA (test code = CATALINA) Association [...] imaging tests). Lab Interpretation (test code = 40474-9) [facility]APID TESTING)2020-06-19 22:30:00* Test Item Value Reference Range Interpretation Comme nts SARS-CoV-2 Rapid ID NOW (test code = 06670-2) Not Detected Not Detected CATALINA (test code = CATALINA) ID NOW COVID-19 As say is an isothermal nucleic acid amplification test intended for the qualitative detection of nucleic acid from SARS-CoV-2 viral RNA in nasopharyngeal ([employer] PAYABLE SUPERVISOR) specimens. It is used under Emergency [...] clinically indicated. Lab Interpretation (test code = 95800-4) Normal [facility]21-[facility] 22:24:00* Test Item Value Reference Range Interpretation Comme nts APPEARANCE (test code = 9829900078) Clear Clear COLOR (test code = 4620099937) Straw Yellow A PH (test code = 6578965781) 4.8-8.0 SP GRAVITY (test code = 4827829541) 1.003-1.030 GLU U QUAL (test code = 3419720819) Normal Normal BLOOD (test code = 7977975456) Negative Negative KETONES (test code = 0587225767) Negative Negative PROTEIN (test code = 2887-8) Negative Negative UROBILIN (test code = 2232496924) Normal Normal BILIRUBIN (test code = 3703565097) Negative Negative NITRITE (test code = 6389592898) Negative Negative LEUK DESIREE (test code = 9679276022) Negative Negative RBC/HPF (test code = 8096998998) <1 See_Comment [Automated messa ge] The system which generated this result transmitted reference range: 0 - 3 HPF. The reference range was not used to interpret this result as normal/abnormal. WBC/HPF (test code = 6231988726) <1 See_Comment [Automated messa ge] The system which generated this result transmitted reference range: 0 - 5 HPF. The reference range was not used to interpret this result as normal/abnormal. BACTERIA (test code = 3512514191) Negative Negative SQ EPITH (test code = 2156527482) <1 HPF Lab Interpretation (test code = 59096-1) [facility]normal [facility] with [id number] 22:17:00* Test Item Value Reference Range Interpretation [...] 33.1 g/dL 31.2-35 RDW-SD (test code = 69919-3) 42.1 fL 38.5-51.6 RDW-CV (test code = 788-0) 12.7 % 12.1-15.4 PLT (test code = 777-3) See_Comment [Automated messa ge] The system which generated this result transmitted reference range: 150 - 328 10*3/?L. The reference range was not used to interpret this result as normal/abnormal. MPV (test code = 95073-0) 10.3 fL 9.8-13 NRBC/100 WBC (test code = 9553938603) See_Comment [Automated me ssage] The system which generated this result transmitted reference range: 0.0 - 10.0 /100 WBCs. The reference range was not used to interpret this result as normal/abnormal. NRBC x10^3 (test code = 1823243513) <0.01 See_Comment [Automated me ssage] The system which generated this result transmitted reference range: 10*3/?L. The reference range was not used to interpret this result as normal/abnormal. GRAN MAT (NEUT) % (test code = 770-8) 65.3 % IMM GRAN % (test code = 4695434889) 0.30 % LYMPH % (test code = 736-9) 26.1 % MONO % (test code = 5905-5) 6.7 % EOS % (test code = 713-8) 1.0 % BASO % (test code = 706-2) 0.6 % GRAN MAT x10^3(ANC) (test code = 6722340448) 4.11 10*3/uL 1.99-6.95 IMM GRAN x10^3 (test code = 8539064513) <0.03 0-0.06 LYMPH x10^3 (test code = 731-0) 1.64 10*3/uL 1.09-3.23 MONO x10^3 (test code = 742-7) 0.42 10*3/uL 0.36-1.02 EOS x10^3 (test code = 711-2) 0.06 10*3/uL 0.06-0.53 BASO x10^3 (test code = 704-7) 0.04 10*3/uL 0.01-0.09 [facility] Notes Date/Time Note Provider Source 2024-05-08 20:44:11 [...] adult friend, in possession of all belongings. [facility] Lc Apodaca RN [facility] 2024-05-08 20:27:35 DC hold, pending registration [facility] 2024-05-08 20:05:00 STEPHANIE Freeman at bedside [facility] 2024-05-08 19:33:04 Ping Hornerdallas Sparks is [...] E/U, in NAD. Call rogers within reach. [facility] 2024-05-08 19:12:07 Ping Rosales Jr. is [...] RR even and unlabored. Pt AAOx4. NAD. [facility] Luzma Garcia RN [facility]
[2024-08-18 12:56] LABS: Absolute Eosinophils 0.1 K/uL (0-0.5); Absolute Lymphocytes (CBC) 2.1 K/uL (0.7-4.9); Absolute Monocytes 0.5 K/uL (0.1-1.3); Basophils % 0.7 % (0-1.3); Eosinophils % 1.7 % (0-4.4); Hemoglobin 17.4 g/dL (13.6-17.9); Lymphocytes % 31.1 % (15.3-44.8); MCHC 34.7 g/dL (32.0-36.0); MCV 86.3 fL (80-100); MPV 9.3 fL (7.6-11.3); Monocytes % 6.8 % (3.3-12.3); Neutrophils % 59.7 % (41.7-73.7); Nucleated Red Blood Cells % 0.1 % (0-0); Platelets 244 thou/uL (152-406); RBC Red Blood Cell Count 5.79 M/uL (4.33-5.43); Red Cell Distribution Width 13.3 % (12.1-15.2)
--- NOTE | 2024-08-18 13:09 | RAD REPORT ---
EXAM: Chest Single View HISTORY: 34 years Male CHEST PAIN COMPARISON: 07/12/2024 FINDINGS: LUNGS/PLEURA: The lungs are clear. No pleural effusions or pneumothorax. No pulmonary edema. Similar elevation of the right hemidiaphragm. CARDIAC/MEDIASTINUM: The cardiac silhouette is within normal limits. UPPER ABDOMEN: No significant abnormality. BONES: No acute abnormality. LINES/TUBES/OTHER: N/A IMPRESSION: No evidence of acute cardiopulmonary disease.
--- NOTE | 2024-08-18 13:10 | RAD REPORT ---
EXAMINATION: Shoulder Left 2+ Views CLINICAL INDICATION: Male, 34 years old. PAIN COMPARISON: 12/13/2016 FINDINGS: No acute fracture. No malalignment/dislocation. Mild left AC joint degenerative changes. Other: n/a IMPRESSION: No acute osseous abnormality.
[2024-08-18 13:14] LABS: Troponin High Sensitivity 8.6 pg/mL (<58.9)
--- NOTE | 2024-08-18 14:26 | RAD REPORT ---
EXAMINATION: Abdomen Pelvis W Contrast CLINICAL INDICATION: Male, 34 years old.ABD PAIN TECHNIQUE: CT abdomen and pelvis was performed, after the administration of IV contrast, [facility]. Axial, sagittal and coronal reconstructions were obtained. One or more of the following dose reduction techniques were used: Automated exposure control, adjustment of the mA and/o r kV according to patient size, and/or iterative reconstruction. Unless otherwise specified, incidental findings do not require dedicated imaging follow-up. [id number]. COMPARISON: 05/03/2016 FINDINGS: LOWER CHEST: No acute process identified.No significant pericardial effusion. UPPER GI: No significant abnormality. LIVER: Hepatic steatosis, but otherwise unremarkable. GALLBLADDER/BILE DUCTS: No biliary ductal dilatation.? PANCREAS: No mass, ductal dilation, or marisa-pancreatic fluid. SPLEEN: Unremarkable. ADRENALS: No adrenal masses. KIDNEYS AND URETERS: No hydronephrosis.No suspicious renal mass.No renal calculi. ABDOMINAL AORTA AND OTHER VESSELS: Normal caliber aorta and IVC. PERITONEUM: No abnormal free fluid. No free air. LYMPH NODES: No pathologic lymphadenopathy. ABDOMINAL WALL: Probable right inguinal hernia repair. SMALL BOWEL/COLON: Small bowel has normal course and caliber. No colonic wall thickening or pericolon ic inflammatory changes.Normal appendix. URINARY BLADDER: Underdistended but grossly unremarkable. REPRODUCTIVE ORGANS: No pathologic process. MUSCULOSKELETAL: No acute or suspicious osseous abnormality. ADDITIONAL FINDINGS: None. IMPRESSION: No acute findings within the abdomen or pelvis. No appendicitis.
--- NOTE | 2024-08-18 14:52 | ER ---
Nurse's Notes [facility] Name: Kartik Swartz Jr Age: 34 yrs Sex: Male : 1990 Arrival Date: 08/18/2024 Time: 11:58 Bed 8 Private MD: Diagnosis: Pain in left shoulder;Chest pain, unspecified;Lower abdominal pain, unspecified Presentation: 08/18 12:23 Chief complaint: EMS states: Left shoulder pain that radiates to left chest x 1 month. hb From [facility], officer at bedside, handcuffs remain in place. Coronavirus screen: At this time, the client does not indicate any symptoms associated with coronavirus-19. Ebola Screen: No symptoms or risks identified at this time. Initial Sepsis Screen: Does the patient meet any 2 criteria? No. Patient's initial sepsis screen is negative. Does the patient have a suspected source of infection? No. Patient's initial sepsis screen is negative. Risk Assessment: Do you want to hurt yourself or someone else? Patient reports no desire to harm self or others. Onset of symptoms was June 2024. 12:23 Method Of Arrival: EMS: [facility] hb 12:23 Acuity: JENNIFER 3 hb Triage Assessment: 12:26 General: Appears in no apparent distress. Behavior is calm, cooperative. Pain: Pain hb currently is 5 out of 10 on a pain scale. at worst was 10 out of 10 on a pain scale. EENT: No signs and/or symptoms were reported regarding the EENT system. Neuro: Level of Consciousness is awake, alert, obeys commands, Oriented to person, place, time, situation. Cardiovascular: Patient's skin is warm and dry. Respiratory: Respiratory effort is even, unlabored, Respiratory pattern is regular, symmetrical. GI: No signs and/or symptoms were reported involving the gastrointestinal system. : No signs and/or symptoms were reported regarding the genitourinary system. Derm: Skin is pink, warm \T\ dry. Musculoskeletal: Reports left shoulder pain. Historical: - Allergies: 12:25 ROBITUSSIN; hb 12:25 Tylenol-Codeine #3; hb - PMHx: 12:25 Diabetes - NIDDM; Hypertension; Pancreatitis; Schizophrenia; hb - PSHx: 12:25 hernia repair; hb - Immunization history:: Adult Immunizations up to date. - Infectious Disease History:: Denies. - Social history:: Smoking status: Patient/guardian denies using tobacco. Screenin:26 [facility] ED Fall Risk Assessment (Adult) History of falling in the last 3 months, hb including since admission No falls in past 3 months (0 pts) Confusion or Disorientation No (0 pts) Intoxicated or Sedated No (0 pts) Impaired Gait No (0 pts) Mobility Assist Device Used No (0 pt) Altered Elimination No (0 pt) Score/Fall Risk Level 0 - 2 = Low Risk Oriented to surroundings, Maintained a safe environment, Educated pt \T\ family on fall prevention, incl call for assistance when getting out of bed. Abuse screen: Denies threats or abuse. Denies injuries from another. Nutritional screening: No deficits noted. Tuberculosis screening: No symptoms or risk factors identified. Assessment: 12:48 General: See triage assessment. hb 14:06 Reassessment: Patient appears in no apparent distress at this time. Patient and/or hb family updated on plan of care and expected duration. Pain level reassessed. Patient is alert, oriented x 3, equal unlabored respirations, skin warm/dry/pink. 15:06 Reassessment: Patient appears in no apparent distress at this time. Patient and/or ss family updated on plan of care and expected duration. Pain level reassessed. Patient is alert, oriented x 3, equal unlabored respirations, skin warm/dry/pink. Vital Signs: 12:23 BP 143 / 101; Pulse 101; Resp 15; Temp 97.8; Pulse Ox 97% on R/A; Weight 100.7 kg; hb Height 5 ft. 10 in. ; Pain 5/10; 14:00 BP 146 / 86; Pulse 88; Resp 15; Pulse Ox 100% on R/A; hb 12:23 Body Mass Index 31.85 (100.70 kg, 177.8 cm) hb 12:23 Pain Scale: Adult hb ED Course: 12:08 Patient arrived in ED. eb 12:10 Kerry Kirkpatrick FNP-C is PHCP. kb 12:10 Surya Epperson MD is Attending Physician. kb 12:24 Triage completed. hb 12:25 Arm band placed on. hb 12:26 Client placed on continuous cardiac and pulse oximetry monitoring. NIBP monitoring hb applied. inspector watch assembly on. Pulse ox on. NIBP on. 12:48 Patient has correct armband on for positive identification. Bed in low position. hb Provided Education on: tests, result times. 12:48 Basic Metabolic Panel Sent. hb 12:48 CBC with Diff Sent. hb 12:48 Troponin HS Sent. hb 12:48 Inserted saline lock: 20 gauge in right forearm, using aseptic technique. Blood hb collected. Flushed with 10 mL NS. 12:48 Patient maintains SpO2 saturation greater than 95% on room air. hb 13:00 XRAY Chest (1 view) In Process Unspecified. EDMS 13:00 Shoulder Left (2 View) XRAY In Process Unspecified. EDMS 13:36 Janis Mason, RN is Primary Nurse. hb 14:14 CT Abd/Pelvis - IV Contrast Only In Process Unspecified. EDMS 15:06 No provider procedures requiring assistance completed. IV discontinued, intact, ss bleeding controlled, No redness/swelling at site. Pressure dressing applied. Administered Medications: No medications were administered Medication: 12:26 VIS not applicable for this client. hb Outcome: 14:51 Discharge ordered by . kb 15:06 Discharged to home ambulatory, 15:06 Condition: stable 15:06 Discharge instructions given to patient, Instructed on discharge instructions, follow up and referral plans. medication usage, Demonstrated understanding of instructions, follow-up care, medications, 15:08 Patient left the ED. Signatures: Dispatcher [employer] EDKerry Linda, MOLD DESIGN ENGINEER-C MOLD DESIGN ENGINEER-Michelle Osborn RN RN Janis Mason, RN RN Ledy Friedman Corrections: (The following items were deleted from the chart) 12:27 12:26 Pain: Pain currently is 5 out of 10 on a pain scale. at worst was 10 out of 10 on hb a pain scale. hb 12:27 12:26 Musculoskeletal: No signs and/or symptoms reported regarding the musculoskeletal hb system. hb
--- NOTE | 2024-08-18 14:52 | EDPHYS ---
Physician Documentation [facility] Name: Kartik Swartz Jr Age: 34 yrs Sex: Male : 1990 Arrival Date: 08/18/2024 Time: 11:58 Bed 8 Private MD: ED Physician Surya Epperson HPI: 08/18 12:48 This 34 yrs old Black Male presents to ER via EMS with complaints of Shoulder Pain. kb 14:01 Pt is a 34 year old male who presents for left shoulder pain that radiates to chest for kb one month and burning to mesh that was placed for a hernia repair to right groin. Historical: - Allergies: 12:25 ROBITUSSIN; hb 12:25 Tylenol-Codeine #3; hb - PMHx: 12:25 Diabetes - NIDDM; Hypertension; Pancreatitis; Schizophrenia; hb - PSHx: 12:25 hernia repair; hb - Immunization history:: Adult Immunizations up to date. - Infectious Disease History:: Denies. - Social history:: Smoking status: Patient/guardian denies using tobacco. ROS: 14:01 Constitutional: As per HPI kb Exam: 12:48 Constitutional: This is a well developed, well nourished patient who is awake, alert, kb and in no acute distress. Head/Face: Normocephalic, atraumatic. ENT: Moist Mucous membranes Cardiovascular: Regular rate Respiratory: Respirations even and unlabored. No increased work of breathing. Talking in full sentences Abdomen/GI: Soft, non-tender. No distention Skin: Warm, dry with normal turgor. Normal color. MS/ Extremity: Pulses equal, no cyanosis. Neurovascular intact. Full, normal range of motion. Neuro: Awake and alert, GCS 15, oriented to person, place, time, and situation. 12:48 ECG was reviewed by the Attending Physician. Vital Signs: 12:23 BP 143 / 101; Pulse 101; Resp 15; Temp 97.8; Pulse Ox 97% on R/A; Weight 100.7 kg; hb Height 5 ft. 10 in. ; Pain 5/10; 14:00 BP 146 / 86; Pulse 88; Resp 15; Pulse Ox 100% on R/A; hb 12:23 Body Mass Index 31.85 (100.70 kg, 177.8 cm) hb 12:23 Pain Scale: Adult hb MDM: 12:10 Medical Screening Exam initiated kb 15:01 Differential diagnosis: tendonitis, arrhythmia, acute mi, dislocation, strain, kb appendicitis. Data reviewed: vital signs, nurses notes. Historians other than the Patient: EMS: [facility]. Counseling: I had a detailed discussion with the patient and/or guardian regarding the historical points, exam findings, and any diagnostic results supporting the discharge/admit diagnosis, lab results, radiology results, the need for outpatient follow up, a family practitioner, to return to the emergency department if symptoms worsen or persist or if there are any questions or concerns that arise at home. 08/18 12:14 Order name: Basic Metabolic Panel; Complete Time: 13:15 kb 08/18 12:14 Order name: CBC with Diff; Complete Time: 15:04 kb 08/18 12:14 Order name: Troponin HS; Complete Time: 13:15 kb 08/18 15:01 Order name: Manual Differential; Complete Time: 15:04 EDMS 08/18 12:14 Order name: XRAY Chest (1 view); Complete Time: 13:10 kb 08/18 12:14 Order name: Shoulder Left (2 View) XRAY; Complete Time: 13:12 kb 08/18 13:19 Order name: CT Abd/Pelvis - IV Contrast Only; Complete Time: 14:28 kb 08/18 12:14 Order name: Cardiac monitoring; Complete Time: 12:26 kb 08/18 12:14 Order name: EKG - Nurse/Tech; Complete Time: 12:48 kb 08/18 12:14 Order name: IV Saline Lock; Complete Time: 12:48 kb 08/18 12:14 Order name: Labs collected and sent; Complete Time: 12:48 kb 08/18 12:14 Order name: O2 Per Protocol; Complete Time: 12:26 kb 08/18 12:14 Order name: O2 Sat Monitoring; Complete Time: 12:26 kb EC:48 Rate is 94 beats/min. Rhythm is regular. QRS [place] is Normal. MO interval is normal at kb 142 msec. QRS interval is normal at 78 msec. QT interval is normal at 427 msec. Administered Medications: No medications were administered Disposition Summary: 08/18/24 14:51 Discharge Ordered Notes: Condition: Stable kb Location: Law Enforcement(08/18/24 14:51) kb Diagnosis - Pain in left shoulder kb - Chest pain, unspecified kb - Lower abdominal pain, unspecified kb Followup: kb - With: Emergency Department - When: As needed - Reason: Worsening of condition Followup: kb - With: Private Physician - When: 2 - 3 days - Reason: Recheck today's complaints, Continuance of care, Re-evaluation by your physician Discharge Instructions: - Discharge Summary Sheet kb - Shoulder Pain, [id number] kb - Abdominal Pain, Adult, [id number] kb - Nonspecific Chest Pain, Adult, [id number] kb Forms: - Medication Reconciliation Form kb - Antibiotic Education kb - Prescription Opioid Use kb - Patient Portal Instructions kb - Leadership Thank You Letter kb Addendum: 08/20/2024 09:02 Co-signature as Attending Physician, Surya Epperson MD I reviewed the patient's care r n provided by the Advanced Practice Provider and agree with the diagnosis and treatment plan. Signatures: Dispatcher [employer] EDMS Kerry Kirkpatrick, NURSE ANESTHETIST-C NURSE ANESTHETIST-Ckb Surya Epperson MD MD rn Baxter, Heather, RN RN Corrections: (The following items were deleted from the chart) 08/18 12:14 12:14 BASIC METABOLIC PANEL+C.LAB.BRZ ordered. EDMS EDMS 12:14 12:14 CBC+H.LAB.BRZ ordered. EDMS EDMS 12:14 12:14 Troponin High Sensitivity+C.LAB.BRZ ordered. EDMS EDMS 12:14 12:14 Chest Single View+RAD.RAD.BRZ ordered. EDMS EDMS 12:15 12:14 Shoulder Left 2 View+RAD.RAD.BRZ ordered. EDMS EDMS 14:51 14:51 Home kb kb
[2024-08-18 15:00] LABS: Atypical Lymphocytes 3 %; Blood Morphology Comment NOT SEEN (NOT SEEN); Differential Total Cells Count 100; Eosinophils 1 % (0-3); Lymphocytes 38 % (15-42); Monocytes 5 % (0-10); Platelet Estimate ADEQ; Segmented Neutrophils 52 % (40-80)
--- NOTE | 2024-08-20 12:13 | EKG ---
Test Date: 2024-08-18 Test Time: 12:42:36 Gear Cutting Machine Set Up Operator: IFEOMA MEASUREMENT RESULTS: Intervals: Rate: 94 CA: 142 QRSD: 78 QT: 342 QTc: 427 [place]: P: 49 CA: 142 QRS: 12 T: 0 INTERPRETIVE STATEMENTS: Normal sinus rhythm Normal ECG Compared to ECG 07/15/2024 21:28:02 Sinus tachycardia no longer present T-wave abnormality no longer present Electronically Signed On 08-20-24 12:08:40 CDT by Anton Scott
[2024-08-20 18:59] VITALS: TEMP 97.8
[2024-08-20 19:00] VITALS: BP 146/86; O2SAT 100
== END 2024-08-18 15:08 ==
LOC: ER 12:10
DX: M25.512 Pain in left shoulder (principal); R07.9 Chest pain, unspecified; R10.31 Right lower quadrant pain
CPT/HCPCS: 93005; 85025; 80048; 36415; 84484; 74177; 71045; 73030; 99284; Q9967